=== PATIENT | female | born 1965 | race Caucasian/White ===

== ENCOUNTER 2016-10-14 01:01 | Inpatient (IN) | payer MEDICAID, OTHER ==
[2016-10-14 01:02] VITALS: BMI 25.0
[2016-10-14] MEDS ORDERED: Sodium Chloride 0.9% 1,000 ML IV ONE (01:19)
[2016-10-14] MEDS ORDERED: Nitroglycerin 2% Ointment Foilpak UD TOP STA (01:20)
--- NOTE | 2016-10-14 01:21 | C.PDOC ---
Time Seen by Provider: 10/14/16 01:11 Chief Complaint (Nursing): Chest Pain Past Medical History Vital Signs: Last Vital Signs Temp 97.6 F 10/14/16 04:24 Pulse 90 10/14/16 04:24 Resp 17 10/14/16 04:24 BP 139/83 10/14/16 04:24 Pulse Ox 100 10/14/16 04:47 - Medical History PMH: CAD, HTN, Hypercholesterolemia Denies: Pulmonary Embolism, Chronic Kidney Disease Surgical History: CABG (09/19) - [facility] Procedures ASSIST WITH CARDIAC OUTPUT USING BALLOON PUMP, INTERMITTENT (08/31/15) EXCISION OF DUODENUM, ENDO, DIAGN (06/07/16) EXCISION OF STOMACH, ENDO, DIAGN (06/07/16) FLUOROSCOPY OF LEFT HEART USING LOW OSMOLAR CONTRAST (08/31/15) FLUOROSCOPY OF MULT COR ART USING L OSM CONTRAST (08/31/15) MEASURE OF CARDIAC SAMPL & PRESSURE, L HEART, PERC APPROACH (08/31/15) TRANSFUSE NONAUT RED BLOOD CELLS IN PERIPH VEIN, PERC (03/13/15) TRANSFUSE NONAUT WHOLE BLOOD IN PERIPH VEIN, PERC (03/11/16) Family History: States: Unknown Family Hx, CAD (mother) - Social History Hx Tobacco Use: No Hx Alcohol Use: No Hx Substance Use: No - Immunization History Hx Tetanus Toxoid Vaccination: No Hx Influenza Vaccination: No Hx Pneumococcal Vaccination: No ED Course And Treatment - Laboratory Results Result Diagrams: 10/14/16 01:23 10/14/16 01:23 O2 Sat by Pulse Oximetry: 100 Disposition Discussed With DrMena: Tino Urena Jr. - Disposition Disposition: HOSPITALIZED Disposition Time: 04:00 Condition: STABLE - Clinical Impression Clinical Impression: Chest pain, Anemia
--- NOTE | 2016-10-14 01:21 | C.PDOC ---
History Of Present Illness 51 y/o female with PMHx DM, HTN, CAD with past CABG, here this evening complaining of intermittent chest pain radiating into her back over the last 5 days, worsening over the last few hours. Also complains of abdominal pain without vomiting or diarrhea. She is taking ASA every day. Patient was given Nitro x2, and a full dose of ASA en route. Time Seen by Provider: 10/14/16 01:11 Chief Complaint (Nursing): Chest Pain History Per: Patient History/Exam Limitations: no limitations Onset/Duration Of Symptoms: Days, Intermittent Episodes Current Symptoms Are (Timing): Worse Severity: Moderate Quality: "Pain" Associated Symptoms: denies: Nausea, Dyspnea, Diaphoresis, Syncope Modifying Factors: None Exacerbating Factors: None Alleviating Factors: None Nitro Therapy Administered: 2, Per EMS Recent travel outside of the [place]: No Additional History Per: Patient Past Medical History Vital Signs: Last Vital Signs Temp 97.6 F 10/14/16 04:24 Pulse 90 10/14/16 04:24 Resp 17 10/14/16 04:24 BP 139/83 10/14/16 04:24 Pulse Ox 100 10/14/16 04:27 - Medical History PMH: CAD, HTN, Hypercholesterolemia Denies: Pulmonary Embolism, Chronic Kidney Disease Surgical History: CABG (09/19) - [facility] Procedures ASSIST WITH CARDIAC OUTPUT USING BALLOON PUMP, INTERMITTENT (08/31/15) EXCISION OF DUODENUM, ENDO, DIAGN (06/07/16) EXCISION OF STOMACH, ENDO, DIAGN (06/07/16) FLUOROSCOPY OF LEFT HEART USING LOW OSMOLAR CONTRAST (08/31/15) FLUOROSCOPY OF MULT COR ART USING L OSM CONTRAST (08/31/15) MEASURE OF CARDIAC SAMPL & PRESSURE, L HEART, PERC APPROACH (08/31/15) TRANSFUSE NONAUT RED BLOOD CELLS IN PERIPH VEIN, PERC (03/13/15) TRANSFUSE NONAUT WHOLE BLOOD IN PERIPH VEIN, PERC (03/11/16) Family History: States: Unknown Family Hx, CAD (mother) - Social History Hx Tobacco Use: No Hx Alcohol Use: No Hx Substance Use: No - Immunization History Hx Tetanus Toxoid Vaccination: No Hx Influenza Vaccination: No Hx Pneumococcal Vaccination: No Review Of Systems Except As Marked, All Systems Reviewed And Found Negative. Cardiovascular: Positive for: Chest Pain Gastrointestinal: Positive for: Abdominal Pain Musculoskeletal: Positive for: Back Pain Physical Exam - Physical Exam Appears: Well, In Acute Distress Skin: Normal Color, Warm, Dry Eye(s): bilateral: Normal Inspection, PERRL, EOMI Nose: Normal Throat: Normal Neck: Normal Chest: Tenderness (anterior, TTP) Cardiovascular: Rhythm Regular Respiratory: Normal Breath Sounds Gastrointestinal/Abdominal: Bowel Sounds, Soft, Tenderness (epigastric), No Mass , No Distention, No Guarding, No Rebound, No Hernia Back: Normal Inspection Extremity: Normal ROM ED Course And Treatment - Laboratory Results Result Diagrams: 10/14/16 01:23 10/14/16 01:23 Lab Interpretation: Abnormal Interpretation Of Abnormal: low HgB,Hct. elevated glucose to 417mg % and elevated D_Dimer ECG: Interpreted By Me, Viewed By Me ECG Rhythm: Sinus Rhythm ECG Interpretation: No Acute Changes, Abnormal Interpretation Of ECG: Rate 103, Sinus tachycardia. ST abnormalities in inferior lateral leads. No ST elevation. Rate From EC O2 Sat by Pulse Oximetry: 100 (RA) Pulse Ox Interpretation: Normal - Radiology CXR: Interpreted by Me CXR Interpretation: Yes: Other (presence of central congestion- CHF) Progress Note: stool for occult blood- negative - Physician Consult Information Physician Contacted: Carlos Haddad Outcome Of Conversation: admit patint to medical service and he will see patient on consult. Medical Decision Making Medical Decision Making: Name: TERI BERUMEN Age: 51Years F Date: 10/14/2016 SSN: [id number] : 1965 Study: CTA CHEST Requesting Physician: Derek Belle Images: [id number] Addl Studies: Provided Clinical History: elevated D-dimer/ chest pain CONFIDENTIALITY STATEMENT This transmission is confidential and is intended to be a privileged communication. It is intended only for the use of the addressee. Access to this message by anyone else is unauthorized. If you are not the intended recipient, any disclosure, copying, distribution or any action taken, or omitted to be taken in reliance on it is prohibited and may be unlawful. If you received this communication in error, please notify us by telephone, so that return of this document to us can be arranged. Page 1 of 2 EXAM: CT Angiography Chest With Intravenous Contrast CLINICAL HISTORY: 51 years old, female; Pain; Chest pain; Prior surgery; Surgery type: Open heart ; Patient HX: [id number]; Additional info: Elevated d-dimer/ chest pain TECHNIQUE: Axial computed tomographic angiography images of the chest with intravenous contrast using pulmonary embolism protocol. This CT exam was performed using one or more of the following dose reduction techniques: automated exposure control, adjustment of the mA and/or kV according to patient size, and/or use of iterative reconstruction technique. MIP reconstructed images were created and reviewed. Coronal and sagittal reformatted images were created and reviewed. CONTRAST: 100 mL of [id number] administered intravenously. COMPARISON: CT - ANGIO CHEST PE PROTOCOL 08/31/2015 12:42:15 AM FINDINGS: Pulmonary arteries: No pulmonary embolism. Aorta: Minimal atherosclerotic disease of aorta. No aortic aneurysm. Inferior vena cava: Retrograde filling of IVC and hepatic veins. Lungs: Minimal atelectasis/scarring. No consolidation. Mild mosaic pattern of lung parenchyma. Interlobular septal thickening. Pleural space: Small bilateral pleural effusions, RIGHT greater than LEFT. No pneumothorax. Heart: Borderline cardiomegaly. No significant pericardial effusion. Mediastinum: 1.3 x 4.2 x 1.5 cm fluid collection without definite peripheral enhancement within anterior mediastinum, posterior/lateral to sternum. Bones/joints: Median sternotomy. No acute fracture. Soft tissues: Mild stranding within subcutaneous tissues. Lymph nodes: No pathologically enlarged lymph nodes. IMPRESSION: 1. No CT evidence of pulmonary embolism. 2. Probable mild interstitial edema. Clinical correlation is needed. 3. Small fluid collection posterior to sternum, likely seroma or resolving hematoma. Early abscess cannot entirely excluded. 4. Incidental/non-acute findings are described above. Thank you for allowing us to participate in the care of your patient. Dictated and Authenticated by: Deni Ramos MD 10/14/2016 3:49 AM Eastern Time ([place] & [place]) Disposition Discussed With : Tino Urena Jr. - Disposition Disposition: HOSPITALIZED Disposition Time: 04:26 Condition: STABLE - Clinical Impression Clinical Impression: Chest pain, Anemia - Scribe Statement The provider has reviewed the documentation as recorded by the Scribe Kadie Khan
[2016-10-14] MEDS ORDERED: Sodium Chloride 0.9% 1,000 ML ONE (01:24)
[2016-10-14] MEDS ORDERED: Nitroglycerin 2% Ointment Foilpak UD TOP ONE (01:24)
[2016-10-14 01:38] LABS: POTASSIUM 4.3 mmol/L (3.6-5.2)
[2016-10-14 01:40] LABS: ALB/GLOB RATIO 0.8 (1.0-2.1); BASO # 0.1 K/uL (0.0-0.2); BASO % 0.7 % (0.0-2.0); BILIRUBIN,TOTAL 0.4 mg/dL (0.2-1.3); EOS # 0.4 K/uL (0.0-0.7); EOS % 3.1 % (0.0-4.0); HEMATOCRIT 21.7 % (34.0-47.0); LYMPH # 2.6 K/uL (1.0-4.3); LYMPH % 20.5 % (20.0-40.0); MEAN CELL VOLUME 65.4 fL (81.0-99.0); MEAN CORPUSCULAR HEMOGLOBIN 20.3 pg (27.0-31.0); MEAN CORPUSCULAR HGB CONC 31.1 g/dL (33.0-37.0); MEAN PLATELET VOLUME 8.5 fL (7.2-11.7); MONO # 0.8 K/uL (0.0-0.8); MONO % 6.6 % (0.0-10.0); NRBC % 0.1 % (0.0-2.0); WHITE BLOOD COUNT 12.7 K/uL (4.8-10.8)
[2016-10-14 01:41] LABS: CALCIUM 7.3 mg/dl (8.6-10.4)
[2016-10-14] MEDS ORDERED: Heparin 25,000units in D5W 250 ML IV ONE (01:41)
[2016-10-14] MEDS ORDERED: (Novolin R) Insulin Human Regular 100 units/ml vial SC STA (01:44)
[2016-10-14 01:53] LABS: INR 0.9; TROPONIN I 0.028 ng/mL (0.00-0.120)
[2016-10-14] MEDS ORDERED: (Novolin R) Insulin Human Regular 100 units/ml vial ONE (01:58)
[2016-10-14] MEDS ORDERED: Iodixanol 320 MG/ML 100 ML BOTTLE IV ONE (02:30)
--- NOTE | 2016-10-14 03:49 | CT ---
EXAM: CT Angiography Chest With Intravenous Contrast CLINICAL HISTORY: 51 years old, female; Pain; Chest pain; Prior surgery; Surgery type: Open heart; Patient HX: 3; Additional info: Elevated d-dimer/ chest pain TECHNIQUE: Axial computed tomographic angiography images of the chest with intravenous contrast using pulmonary embolism protocol. This CT exam was performed using one or more of the following dose reduction techniques: automated exposure control, adjustment of the mA and/or kV according to patient size, and/or use of iterative reconstruction technique. MIP reconstructed images were created and reviewed. Coronal and sagittal reformatted images were created and reviewed. CONTRAST: 100 mL of [id number]- administered intravenously. COMPARISON: CT - ANGIO CHEST PE PROTOCOL 08/31/2015 12:42:15 AM FINDINGS: Pulmonary arteries: No pulmonary embolism. Aorta: Minimal atherosclerotic disease of aorta. No aortic aneurysm. Inferior vena cava: Retrograde filling of IVC and hepatic veins. Lungs: Minimal atelectasis/scarring. No consolidation. Mild mosaic pattern of lung parenchyma. Interlobular septal thickening. Pleural space: Small bilateral pleural effusions, RIGHT greater than LEFT. No pneumothorax. Heart: Borderline cardiomegaly. No significant pericardial effusion. Mediastinum: 1.3 x 4.2 x 1.5 cm fluid collection without definite peripheral enhancement within anterior mediastinum, posterior/lateral to sternum. Bones/joints: Median sternotomy. No acute fracture. Soft tissues: Mild stranding within subcutaneous tissues. Lymph nodes: No pathologically enlarged lymph nodes. IMPRESSION: 1. No CT evidence of pulmonary embolism. 2. Probable mild interstitial edema. Clinical correlation is needed. 3. Small fluid collection posterior to sternum, likely seroma or resolving hematoma. Early abscess cannot entirely excluded. 4. Incidental/non-acute findings are described above.
--- NOTE | 2016-10-14 04:52 | CP.PCM.HP ---
History of Present Illness - History of Present Illness History of Present Illness: CC: "chest pain and difficulty breathing" 50F PMH DM, HTN, menorrhagia and uterine fibroids presents to [facility] ED with complaint of chest pain. Patient stated that it began yesterday morning while she was at home. Patient was not doing anything in particular when it started. Patient reports a sudden onset. She states she has had similar pain, which she had come to this hospital for previously. Patient has long standing history of symptomatic anemia and cardiac issues. She rated the pain as 8/10 in severity. She described the pain as constant and sharp located substernally radiating to the back. Patient denies any exacerbating or alleviating factors. Patient reports associated SOB, especially when lying down or exerting herself. Patient can only walk short amount of distance before getting SOB. She sleeps with multiple pillows. Her last ECHO was in March 2016. Admits to cough, fatigue, and generalized weakness. Denies fever, chills, headache, vision change , dizziness, palpitations, nausea/vomiting, diarrhea, constipation, abdominal pain, dysuria, rash, weight change. PMH: DM, HTN, menorrhagia, uterine fibroids Meds: As per EMR Allergies: NKDA PSH: Left heart cath August 2015. Has large vertical midline chest scar. says she cannot recall was surgery she had. FH: Father had CABGx2, mother had heart surgeries as well. Social: Occasional glass of wine, Denies tobacco or illicit drug use Present on Admission - Present on Admission Any Indicators Present on Admission: No History of DVT/PE: No History of Uncontrolled Diabetes: No Urinary Catheter: No Decubitus Ulcer Present: No Review of Systems - Review of Systems All systems: reviewed and no additional remarkable complaints except (as per HPI ) Past Patient History - Infectious Disease Hx of Infectious Diseases: None - Past Medical History & Family History Past Medical History?: Yes - Past Social History Smoking Status: Never Smoked - CARDIAC Hx Hypercholesterolemia: Yes Hx Hypertension: Yes - PULMONARY Hx Pulmonary Embolism: No - NEUROLOGICAL Hx Neurological Disorder: No - HEENT Hx HEENT Problems: No - RENAL Hx Chronic Kidney Disease: No - ENDOCRINE/METABOLIC Hx Diabetes Mellitus Type 1: Yes - HEMATOLOGICAL/ONCOLOGICAL Hx Blood Disorders: No - INTEGUMENTARY Hx Dermatological Problems: No - MUSCULOSKELETAL/RHEUMATOLOGICAL Hx Falls: No - GASTROINTESTINAL Hx Gastrointestinal Disorders: No - GENITOURINARY/GYNECOLOGICAL Hx Genitourinary Disorders: No - PSYCHIATRIC Hx Substance Use: No - SURGICAL HISTORY Hx Coronary Artery Bypass Graft: Yes (09/19) - ANESTHESIA Hx Anesthesia: Yes Hx Anesthesia Reactions: No Hx Malignant Hyperthermia: No Meds Allergies/Adverse Reactions: Allergies Allergy/AdvReac Type Severity Reaction Status Date / Time No Known Allergies Allergy Unverified 10/14/16 01:05 Physical Exam - Constitutional Appears: No Acute Distress - Head Exam Head Exam: ATRAUMATIC, NORMOCEPHALIC - Eye Exam Eye Exam: EOMI, Normal appearance Pupil Exam: PERRL - ENT Exam ENT Exam: Mucous Membranes Moist - Neck Exam Neck exam: Positive for: Normal Inspection - Respiratory Exam Respiratory Exam: Clear to Auscultation Bilateral, NORMAL BREATHING PATTERN - Cardiovascular Exam Cardiovascular Exam: REGULAR RHYTHM, +S1, +S2 Additional comments: midline vertical scar in chest from CABG - GI/Abdominal Exam GI & Abdominal Exam: Normal Bowel Sounds, Soft. absent: Tenderness - Extremities Exam Extremities exam: Positive for: normal capillary refill, pedal pulses present. Negative for: calf tenderness - Back Exam Back exam: paraspinal tenderness. absent: CVA tenderness (L), CVA tenderness (R ) - Neurological Exam Neurological exam: Alert, CN II-XII Intact, Oriented x3 - Psychiatric Exam Psychiatric exam: Normal Affect, Normal Mood - Skin Skin Exam: Dry, Intact, Pallor Results - Vital Signs Recent Vital Signs: Last Vital Signs Temp 97.6 F 10/14/16 04:24 Pulse 88 10/14/16 04:49 Resp 21 10/14/16 04:49 BP 145/82 10/14/16 04:49 Pulse Ox 100 10/14/16 04:49 - Labs Result Diagrams: 10/14/16 01:23 10/14/16 01:23 Labs: Laboratory Results - last 24 hr 10/14/16 04:34 POC Glucose (mg/dL) 284 H Assessment & Plan - Assessment and Plan (Free Text) Plan: 1. Chest Pain Telemetry Cardio consult, Dr. Haddad, help appreciated JOSEPH x 3 EKG x 3 ECHO 03/11/16 ECHO normal with mild to moderate LVH and mild MR (please see full report in meditech) HOLD ASA 81mg PO daily Crestor 5 mg PO HS NS 100 cc/hr Morphine 2 mg IVP Q4H PRN f/u HA1C, TSH/T4, Lipid panel 3. DM Lantus 24U SC HS Lispro 5U SC AC Metformin 500 mg PO BID RISS Accuchecks f/u HA1C 4. Anemia Hgb 6.8 Transfuse 2 units PRBC Post transfusion CBC 4 hours after 2 unit finishes Feosol 325mg PO TID FOBT (-) 5. Prophylactic Measures Protonix 40mg PO daily SCDs PT/OT
[2016-10-14] MEDS: (Novolog) Insulin Aspart, Recombinant 100 u/ml 10 ml vial SC SCH ×3 (08:00→17:27)
[2016-10-14] MEDS: Metoprolol Succinate 25 mg XL Tab PO SCH ×2 (09:44→17:28)
[2016-10-14] MEDS ORDERED: Home Med 1 UNIT (Metformin 500 mg) PO SCH (10:00)
[2016-10-14] MEDS ORDERED: Pantoprazole 40 mg EC Tab PO SCH (10:00)
[2016-10-14] MEDS: Pantoprazole 40 mg EC Tab PO SCH (10:09)
--- NOTE | 2016-10-14 10:25 | RAD ---
HISTORY: chest pain COMPARISON: Chest x-ray performed 06/07/16 TECHNIQUE: Chest, one view. FINDINGS: Examination limited by habitus and hypoinflation LUNGS: Small cbrf-nschwsd-rnts-right pleural effusions and bibasilar atelectasis. Central vascular and mild pulmonary venous congestion. No definite pneumothorax. Please note that chest x-ray has limited sensitivity for the detection of pulmonary masses. CARDIOVASCULAR: Median sternotomy wires with evidence of CABG. Cardiomegaly. Atherosclerotic calcifications of the aorta. OSSEOUS STRUCTURES: Degenerative changes. VISUALIZED UPPER ABDOMEN: Unremarkable. OTHER FINDINGS: None. IMPRESSION: Small fiin-spxwtep-olrv-right pleural effusions and bibasilar atelectasis. Central vascular and mild pulmonary venous congestion.
[2016-10-14 14:42] LABS: IRON 97 ug/dL (37-170)
[2016-10-14 19:46] LABS: HEMATOCRIT 28.9 % (34.0-47.0); MEAN CELL VOLUME 71.5 fL (81.0-99.0); MEAN CORPUSCULAR HEMOGLOBIN 23.2 pg (27.0-31.0); MEAN CORPUSCULAR HGB CONC 32.4 g/dL (33.0-37.0); MEAN PLATELET VOLUME 8.1 fL (7.2-11.7); WHITE BLOOD COUNT 10.9 K/uL (4.8-10.8)
--- NOTE | 2016-10-14 21:30 | CP.PCM.PN ---
<Lesley Mathias - Last Filed: 10/14/16 21:52> Subjective - Date & Time of Evaluation Date of Evaluation: 10/14/16 Time of Evaluation: 07:00 - Subjective Subjective: PGY1 Medicine note for Dr. Urena Patient seen and examined at bedside. Patient continues to report feel weak and having pain in the middle of her chest, her ribs, and back. She continues to complain of some orthopnea, cough, fatigue, and generalized weakness. Denies fever, chills, headache, vision change, dizziness, palpitations, nausea/vomiting , diarrhea, constipation, abdominal pain, and dysuria. Objective - Vital Signs/Intake and Output Vital Signs (last 24 hours): Temp Pulse Resp BP Pulse Ox 99.1 F 99 H 20 119/79 97 10/14/16 15:47 10/14/16 15:47 10/14/16 15:47 10/14/16 15:47 10/14/16 15:47 Intake and Output: 10/14/16 10/15/16 18:59 06:59 Intake Total 625 Balance 625 - Medications Medications: Current Medications Acetaminophen (Tylenol 325mg Tab) 650 mg PO Q6 PRN PRN Reason: Fever >100.4 F Docusate Sodium (Colace) 100 mg PO TID [facility] Last Admin: 10/14/16 17:28 Dose: 100 mg Ferrous Sulfate (Feosol) 325 mg PO TID [facility] Last Admin: 10/14/16 17:28 Dose: 325 mg Furosemide (Lasix) 20 mg IVP DAILY [facility] Gabapentin (Neurontin) 100 mg PO TID [facility] Last Admin: 10/14/16 17:28 Dose: 100 mg Insulin Aspart (Novolog) 5 unit SC AC [facility] Last Admin: 10/14/16 17:27 Dose: 5 unit Insulin Glargine (Lantus) 24 unit SC HS [facility] Last Admin: 10/14/16 21:24 Dose: 24 units Metformin HCl (Glucophage) 500 mg PO BID [facility] Last Admin: 10/14/16 09:44 Dose: 500 mg Metoprolol Succinate (Toprol Xl) 25 mg PO BID [facility] Last Admin: 10/14/16 17:28 Dose: 25 mg Morphine Sulfate (Morphine) 2 mg IVP Q4H PRN PRN Reason: Pain, moderate (4-7) Ondansetron HCl (Zofran Inj) 4 mg IVP Q6 PRN PRN Reason: Nausea/Vomiting Pantoprazole Sodium (Protonix Ec Tab) 40 mg PO DAILY [facility] Last Admin: 10/14/16 10:09 Dose: 40 mg Rosuvastatin Calcium (Crestor) 5 mg PO HS [facility] Last Admin: 10/14/16 21:24 Dose: 5 mg - Labs Labs: 10/14/16 19:41 PT 10.0 SECONDS (9.7-12.2) 10/14/16 01:23 INR 0.9 10/14/16 01:23 - Constitutional Appears: No Acute Distress, Unkempt - Head Exam Head Exam: NORMAL INSPECTION - Eye Exam Eye Exam: Normal appearance. absent: Conjunctival injection, Scleral icterus - ENT Exam ENT Exam: Mucous Membranes Moist - Neck Exam Neck Exam: Normal Inspection - Respiratory Exam Respiratory Exam: Clear to Ausculation Bilateral, NORMAL BREATHING PATTERN. absent: Accessory Muscle Use, Rales, Rhonchi, Wheezes - Cardiovascular Exam Cardiovascular Exam: REGULAR RHYTHM, RRR, +S1, +S2 Additional comments: midline vertical scar in chest from CABG - GI/Abdominal Exam GI & Abdominal Exam: Soft, Normal Bowel Sounds. absent: Tenderness - Extremities Exam Extremities Exam: Normal Capillary Refill, Normal Inspection, Pedal Edema (trace ), Tenderness (to palpation when assessing for pitting edema) - Back Exam Back Exam: paraspinal tenderness - Neurological Exam Neurological Exam: Alert, Awake, Oriented x3 - Psychiatric Exam Psychiatric exam: Normal Affect, Normal Mood - Skin Skin Exam: Dry, Intact, Pallor Assessment and Plan - Assessment and Plan (Free Text) Assessment: 50F PMH DM, HTN, menorrhagia and uterine fibroids presents with chest pain. Plan: 1. Chest Pain -CT chest with contrast: No CT evidence of pulmonary embolism; Probable mild interstitial edema. Clinical correlation is needed; Small fluid collection posterior to sternum, likely seroma or resolving hematoma. Early abscess cannot entirely excluded; Incidental/non-acute findings (see full report) JOSEPH negative x [address] changes x 3 -f/u ECHO -03/11/16 ECHO normal with mild to moderate LVH and mild MR (please see full report in meditech) -HOLD ASA 81mg PO daily -Crestor 5 mg PO HS -NS 100 cc/hr -Morphine 2 mg IVP Q4H PRN -Lasix 20mg IVP daily -f/u HA1C, TSH/T4, Lipid panel -Patient for procedure with Dr. Haddad in the AM -Cardio consult, Dr. Haddad 2. HTN -Toprol xl 25mg po bid -Crestor 5mg po hs 3. DM -Lantus 24U SC HS -Lispro 5U SC AC -Metformin 500 mg PO BID on hold -Neurontin 100mg po tid -RISS -Accuchecks -f/u HgbA1C 4. Anemia -Hgb 6.8 -Transfuse 2 units PRBC -Post transfusion CBC 4 hours after 2 unit finishes -Feosol 325mg PO TID -FOBT (-) 5. Prophylactic Measures -Protonix 40mg PO daily -SCDs -PT/OT -Colace 100mg po tid -zofran 4mg ivp q6 prn Will discuss plan with Dr. Romel Mathias PGY1 <Tino Urena Jr. - Last Filed: 10/18/16 10:05> Objective - Vital Signs/Intake and Output Vital Signs (last 24 hours): Temp Pulse Resp BP Pulse Ox 98.1 F 87 21 155/84 H 98 10/15/16 15:59 10/15/16 15:59 10/15/16 15:59 10/15/16 15:59 10/15/16 15:59 - Labs Labs: 10/15/16 07:05 10/15/16 07:05 PT 10.9 SECONDS (9.7-12.2) 10/15/16 07:29 INR 1.0 10/15/16 07:29 APTT 28 SECONDS (21-34) 10/15/16 07:29 Attending/Attestation - Attestation I have personally seen and examined this patient.: Yes I have fully participated in the care of the patient.: Yes I have reviewed all pertinent clinical information, including history, physical exam and plan: Yes Notes (Text): 10/18/16 10:05 Resident note and findings reviewed
[2016-10-14] MEDS ORDERED: (Lantus) Insulin Glargine, Recombinant SC SCH (22:00)
[2016-10-15 07:30] LABS: BASO # 0.1 K/uL (0.0-0.2); BASO % 0.9 % (0.0-2.0); EOS # 0.4 K/uL (0.0-0.7); EOS % 5.1 % (0.0-4.0); LYMPH # 1.7 K/uL (1.0-4.3); LYMPH % 20.1 % (20.0-40.0); MEAN CELL VOLUME 70.6 fL (81.0-99.0); MEAN CORPUSCULAR HEMOGLOBIN 23.5 pg (27.0-31.0); MEAN CORPUSCULAR HGB CONC 33.2 g/dL (33.0-37.0); MEAN PLATELET VOLUME 8.4 fL (7.2-11.7); MONO # 0.8 K/uL (0.0-0.8); MONO % 9.2 % (0.0-10.0); RED CELL DISTRIBUTION WIDTH 20.6 % (11.5-14.5); WHITE BLOOD COUNT 8.6 K/uL (4.8-10.8)
[2016-10-15 07:35] LABS: CHLORIDE 104 mmol/L (98-107); POTASSIUM 4.1 mmol/L (3.6-5.2); SODIUM 131 mmol/L (132-148)
[2016-10-15 07:37] LABS: ALB/GLOB RATIO 0.6 (1.0-2.1); AST/SGOT 16 U/L (14-36); BILIRUBIN,TOTAL < 0.1 mg/dL (0.2-1.3); CARBON DIOXIDE 23 mmol/L (22-30); GFR AFRICAN-AMERICAN 53; TOTAL PROTEIN 5.8 g/dL (6.3-8.3)
[2016-10-15 07:38] LABS: ALKALINE PHOSPHATASE 71 U/L (38-126); ALT/SGPT 23 U/L (9-52); BLOOD UREA NITROGEN 19 mg/dL (7-17); CALCIUM 7.5 mg/dl (8.6-10.4); GLUCOSE,RANDOM 220 mg/dL (65-105); MAGNESIUM 1.6 mg/dL (1.6-2.3); PHOSPHOROUS 3.5 mg/dL (2.5-4.5)
[2016-10-15 07:54] LABS: T4 6.86 ug/dL (5.5-11.0)
[2016-10-15] MEDS: (Novolog) Insulin Aspart, Recombinant 100 u/ml 10 ml vial SC SCH ×3 (08:01→17:50)
[2016-10-15 08:41] LABS: FOLATE 9.1 ng/mL
[2016-10-15 08:42] LABS: THYROID STIMULATING HORMONE 0.86 mIU/L (0.46-4.68)
[2016-10-15] MEDS: Metoprolol Succinate 25 mg XL Tab PO SCH ×2 (10:06→17:50)
[2016-10-15] MEDS: Pantoprazole 40 mg EC Tab PO SCH (10:06)
--- NOTE | 2016-10-15 10:56 | CP.PCM.PN ---
Subjective - Date & Time of Evaluation Date of Evaluation: 10/15/16 Time of Evaluation: 10:52 - Subjective Subjective: Medicine Progress Note Patient seen and examined. Objective - Vital Signs/Intake and Output Vital Signs (last 24 hours): Temp Pulse Resp BP Pulse Ox 98.6 F 77 20 157/85 H 96 10/15/16 07:07 10/15/16 07:07 10/15/16 07:07 10/15/16 10:02 10/15/16 07:07 Intake and Output: 10/15/16 10/15/16 06:59 18:59 Intake Total 400 Balance 400 - Medications Medications: Current Medications Acetaminophen (Tylenol 325mg Tab) 650 mg PO Q6 PRN PRN Reason: Fever >100.4 F Docusate Sodium (Colace) 100 mg PO TID [facility] Last Admin: 10/15/16 10:06 Dose: Not Given Ferrous Sulfate (Feosol) 325 mg PO TID [facility] Last Admin: 10/15/16 10:06 Dose: Not Given Furosemide (Lasix) 20 mg IVP DAILY [facility] Last Admin: 10/15/16 10:02 Dose: 20 mg Gabapentin (Neurontin) 100 mg PO TID [facility] Last Admin: 10/15/16 10:06 Dose: Not Given Heparin Sodium (Porcine) (Heparin) 5,000 units SC Q12 [facility] Insulin Aspart (Novolog) 5 unit SC AC [facility] Last Admin: 10/15/16 08:01 Dose: Not Given Insulin Glargine (Lantus) 24 unit SC [facility] Last Admin: 10/14/16 21:24 Dose: 24 units Metformin HCl (Glucophage) 500 mg PO BID [facility] Last Admin: 10/14/16 09:44 Dose: 500 mg Metoprolol Succinate (Toprol Xl) 25 mg PO BID [facility] Last Admin: 10/15/16 10:06 Dose: Not Given Morphine Sulfate (Morphine) 2 mg IVP Q4H PRN PRN Reason: Pain, moderate (4-7) Ondansetron HCl (Zofran Inj) 4 mg IVP Q6 PRN PRN Reason: Nausea/Vomiting Pantoprazole Sodium (Protonix Ec Tab) 40 mg PO DAILY [facility] Last Admin: 10/15/16 10:06 Dose: Not Given Rosuvastatin Calcium (Crestor) 5 mg PO [facility] Last Admin: 10/14/16 21:24 Dose: 5 mg - Labs Labs: 10/15/16 07:05 10/15/16 07:05 PT 10.9 SECONDS (9.7-12.2) 10/15/16 07:29 INR 1.0 10/15/16 07:29 APTT 28 SECONDS (21-34) 10/15/16 07:29 Assessment and Plan - Assessment and Plan (Free Text) Assessment: 1. Chest Pain -CT chest with contrast: No CT evidence of pulmonary embolism; Probable mild interstitial edema. Clinical correlation is needed; Small fluid collection posterior to sternum, likely seroma or resolving hematoma. Early abscess cannot entirely excluded; Incidental/non-acute findings (see full report) JOSEPH negative x [address] changes x 3 -f/u ECHO -03/11/16 ECHO normal with mild to moderate LVH and mild MR (please see full report in [employer]) -HOLD ASA 81mg PO daily -Crestor 5 mg PO HS -NS 100 cc/hr -Morphine 2 mg IVP Q4H PRN -Lasix 20mg IVP daily -Patient for procedure with Dr. Haddad in the AM -Cardio consult, Dr. Haddad 2. HTN -Toprol xl 25mg po bid -Crestor 5mg po hs 3. DM -Lantus 24U SC HS -Lispro 5U SC AC -Metformin 500 mg PO BID on hold -Neurontin 100mg po tid -RISS -Accuchecks -HgbA1C 10.1 4. Anemia - Likely secondary to menorrhagia/uterine fibroids - Hgb 10 - s/p transfusion of 2 units PRBC on 10/14 - Feosol 325mg PO TID - FOBT (-) 5. HLD -Cholesterol 299, TG 211, HDL 47, LDL 190 -Crestor 20mg PO HS 6. Prophylactic Measures -Protonix 40mg PO daily -SCDs -PT/OT -Colace 100mg po tid -zofran 4mg ivp q6 prn Will discuss plan with Dr. Urena
[2016-10-15 16:00] VITALS: BP 155/84; PULSE 87; RESP 21; TEMP 98.1; O2SAT 98
--- NOTE | 2016-10-15 16:33 | CP.PCM.DIS ---
Provider - Provider Date of Admission: 10/14/16 04:01 Attending physician: Abraham Lopez MD Primary care physician: Carlos Haddad MD Time Spent in preparation of Discharge (in minutes): 90 Hospital Course - Lab Results Lab Results: Most Recent Lab Values WBC 8.6 K/uL (4.8-10.8) 10/15/16 07:05 RBC 4.25 Mil/uL (3.80-5.20) 10/15/16 07:05 Hgb 10.0 g/dL (11.0-16.0) L 10/15/16 07:05 Hct 30.0 % (34.0-47.0) L 10/15/16 07:05 MCV 70.6 fL (81.0-99.0) L 10/15/16 07:05 MCH 23.5 pg (27.0-31.0) L 10/15/16 07:05 MCHC 33.2 g/dL (33.0-37.0) 10/15/16 07:05 RDW 20.6 % (11.5-14.5) H 10/15/16 07:05 Plt Count 285 K/uL (130-400) 10/15/16 07:05 MPV 8.4 fL (7.2-11.7) 10/15/16 07:05 Neut % (Auto) 64.7 % (50.0-75.0) 10/15/16 07:05 Lymph % (Auto) 20.1 % (20.0-40.0) 10/15/16 07:05 Caroline % (Auto) 9.2 % (0.0-10.0) 10/15/16 07:05 Eos % (Auto) 5.1 % (0.0-4.0) H 10/15/16 07:05 Baso % (Auto) 0.9 % (0.0-2.0) 10/15/16 07:05 Neut # 5.6 K/uL (1.8-7.0) 10/15/16 07:05 Lymph # 1.7 K/uL (1.0-4.3) 10/15/16 07:05 Caroline # 0.8 K/uL (0.0-0.8) 10/15/16 07:05 Eos # 0.4 K/uL (0.0-0.7) 10/15/16 07:05 Baso # 0.1 K/uL (0.0-0.2) 10/15/16 07:05 PT 10.9 SECONDS (9.7-12.2) 10/15/16 07:29 INR 1.0 10/15/16 07:29 APTT 28 SECONDS (21-34) 10/15/16 07:29 D-Dimer, Quantitative 307 ng/mlDDU (0-243) H 10/14/16 01:23 Sodium 131 mmol/L (132-148) L 10/15/16 07:05 Potassium 4.1 mmol/L (3.6-5.2) 10/15/16 07:05 Chloride 104 mmol/L (98-107) 10/15/16 07:05 Carbon Dioxide 23 mmol/L (22-30) 10/15/16 07:05 Anion Gap 8 (10-20) L 10/15/16 07:05 BUN 19 mg/dL (7-17) H 10/15/16 07:05 Creatinine 1.3 MG/DL (0.7-1.2) H 10/15/16 07:05 Est GFR ( Amer) 53 10/15/16 07:05 Est GFR (Non-Af Amer) 44 10/15/16 07:05 POC Glucose (mg/dL) 264 mg/dL (65-110) H 10/15/16 06:34 Random Glucose 220 mg/dL (65-105) H 10/15/16 07:05 Hemoglobin A1c 10.1 % (4.2-6.5) H 10/14/16 07:05 Calcium 7.5 mg/dl (8.6-10.4) L 10/15/16 07:05 Phosphorus 3.5 mg/dL (2.5-4.5) 10/15/16 07:05 Magnesium 1.6 mg/dL (1.6-2.3) 10/15/16 07:05 Iron 97 ug/dL (37-170) 10/14/16 14:13 TIBC 179 ug/dL (250-450) L 10/14/16 14:13 % Saturation 15 (20-55) L 10/15/16 07:05 Transferrin 154.68 mg/dL (206-381) L 10/15/16 07:05 Ferritin 65.4 ng/mL 10/15/16 07:05 Total Bilirubin < 0.1 mg/dL (0.2-1.3) L 10/15/16 07:05 AST 16 U/L (14-36) 10/15/16 07:05 ALT 23 U/L (9-52) 10/15/16 07:05 Alkaline Phosphatase 71 U/L (38-126) 10/15/16 07:05 Total Creatine Kinase 133 U/L (30-135) 10/14/16 09:55 CK-MB (Mass) 1.80 ng/mL (0.0-3.38) 10/14/16 09:55 Troponin I 0.0530 ng/mL (0.00-0.120) 10/14/16 19:41 Troponin I, Quant 0.0480 ng/mL (0.00-0.120) 10/14/16 09:55 NT-Pro-B Natriuret Pep 4920 pg/mL (0-450) H 10/14/16 01:23 Total Protein 5.8 g/dL (6.3-8.3) L 10/15/16 07:05 Albumin 2.2 g/dL (3.5-5.0) L 10/15/16 07:05 Globulin 3.6 gm/dL (2.2-3.9) 10/15/16 07:05 Albumin/Globulin Ratio 0.6 (1.0-2.1) L 10/15/16 07:05 Triglycerides 211 mg/dL (0-149) H D 10/15/16 04:00 Cholesterol 299 mg/dL (0-199) H 10/15/16 04:00 LDL Cholesterol Direct 190 mg/dL (0-129) H 10/15/16 04:00 HDL Cholesterol 47 mg/dL (30-70) 10/15/16 04:00 Lipase 239 U/L (23-300) 10/14/16 01:23 Vitamin B12 403 pg/mL (239-931) 10/15/16 07:05 Folate 9.1 ng/mL 10/15/16 07:05 Thyroxine (T4) 6.86 ug/dL (5.5-11.0) 10/15/16 04:00 TSH 3rd Generation 0.86 mIU/L (0.46-4.68) 10/15/16 04:00 Urine HCG, Qual Negative (NEGATIVE) 10/15/16 12:10 Stool Occult Blood Negative (NEGATIVE) 10/14/16 02:18 Serum Ketones Negative (NEGATIVE) 10/14/16 01:53 Blood Type B POSITIVE 10/14/16 02:36 Antibody Screen Negative 10/14/16 02:36 - Hospital Course Hospital Course: 50F PMH DM, HTN, menorrhagia and uterine fibroids presents to [facility] ED with complaint of chest pain. Patient stated that it began yesterday morning while she was at home. Patient was not doing anything in particular when it started. Patient reports a sudden onset. She states she has had similar pain, which she had come to this hospital for previously. Patient has long standing history of symptomatic anemia and cardiac issues. She rated the pain as 8/10 in severity. She described the pain as constant and sharp located substernally radiating to the back. Patient denies any exacerbating or alleviating factors. Patient reports associated SOB, especially when lying down or exerting herself. Patient can only walk short amount of distance before getting SOB. She sleeps with multiple pillows. Her last ECHO was in March 2016. Admits to cough, fatigue, and generalized weakness. Denies fever, chills, headache, vision change , dizziness, palpitations, nausea/vomiting, diarrhea, constipation, abdominal pain, dysuria, rash, weight change. CT chest with contrast was performed. Will hold Metformin. Findings: 1. No CT evidence of pulmonary embolism. 2. Probable mild interstitial edema. Clinical correlation is needed. 3. Small fluid collection posterior to sternum, likely seroma or resolving hematoma. Early abscess cannot entirely excluded. 4. Incidental/non-acute findings (see full report) The patient was admitted for anemia after she had Hgb of 6.8 in the ED. Anemia was likely due to menorrhagia. Aitent admits that her periods last over 7 days and have very heavy flow. She has never seen an poly operator for this issue before. Patient was transfused 2u pRBCs and her Hgb increased to 10. Iron studies were done and the patient was started on oral iron. Stool OB was negative for GI bleed. Chest pain was worked out and ACS was ruled out. Malt [employer] Dr Haddad was consulted who determined that chest pain was likely secondary to anemia and non-cardiac. The patients chest pain resolved after infusion. It was noted that patient had tenderness of her chest with palpation and component of costocondritis. ROMIs were negative x3 and patient had ECHO done which she should follow up results as outpatient. Patient was cleared from cardiac standpoint. Patient was discharged home on 10/15/16. 1. Chest Pain Resolved, Patient cleared for DC per Dr Haddad. Chest pain due to noncardiac causes. -CT chest with contrast: No CT evidence of pulmonary embolism; Probable mild interstitial edema. Clinical correlation is needed; Small fluid collection posterior to sternum, likely seroma or resolving hematoma. Early abscess cannot entirely excluded; Incidental/non-acute findings (see full report) JOSEPH negative x [address] changes x 3 -f/u ECHO results as outpatient -03/11/16 ECHO normal with mild to moderate LVH and mild MR (please see full report in [employer]) -HOLD ASA 81mg PO daily -Crestor 5 mg PO HS -NS 100 cc/hr -Morphine 2 mg IVP Q4H PRN -Lasix 20mg IVP daily -Cardio consult, Dr. Haddad 2. HTN -Toprol xl 25mg po bid -Crestor 5mg po hs 3. DM -Lantus 24U SC HS -Lispro 5U SC AC -Metformin 500 mg PO BID on hold -Neurontin 100mg po tid -RISS -Accuchecks 4. Anemia -Hgb 6.8--> 10 s/p transfusion -Transfuse 2 units PRBC -Post transfusion CBC 4 hours after 2 unit finishes -Feosol 325mg PO TID -FOBT (-) Secondary to menorrhagia 5. Prophylactic Measures -Protonix 40mg PO daily -SCDs -PT/OT -Colace 100mg po tid -zofran 4mg ivp q6 prn Discharge Exam - Head Exam Head Exam: NORMAL INSPECTION - Eye Exam Eye Exam: EOMI, Normal appearance Pupil Exam: NORMAL ACCOMODATION - ENT Exam ENT Exam: Mucous Membranes Moist - Respiratory Exam Respiratory Exam: Clear to PA & Lateral, NORMAL BREATHING PATTERN, UNREMARKABLE. absent: Rales, Rhonchi, Wheezes, Respiratory Distress Additional comments: chest wall- pain reproducible with palpation - Cardiovascular Exam Cardiovascular Exam: REGULAR RHYTHM, +S1, +S2 - GI/Abdominal Exam GI & Abdominal Exam: Normal Bowel Sounds, Soft, Unremarkable - Extremities Exam Extremities exam: normal inspection - Back Exam Back exam: NORMAL INSPECTION - Neurological Exam Neurological exam: Alert, CN II-XII Intact, Normal Gait, Oriented x3 - Psychiatric Exam Psychiatric exam: Normal Affect, Normal Mood - Skin Skin Exam: Dry, Intact, Normal Color, Warm Discharge Plan - Discharge Medications Prescriptions: Ferrous Sulfate [Feosol] 325 mg PO TID #90 tab - Follow Up Plan Condition: STABLE Disposition: HOME/ ROUTINE Additional Instructions: Patient is to be discharged home today per Dr Urena. Patient should follow up with her PMD Dr Haddad within 7 days. Patient should look into her insurance plan and make an appointment with an poly operator for further evaluation of her menorrhagia. She should continue all of her home meds. If patient experiences recurrence of her symptoms or has any other concerns she should return to the ED. Instructions were explained to the patient who understands. Referrals: Carlos Haddad MD [Primary Care Provider] -
--- NOTE | 2016-10-18 11:45 | CARD ---
APPROVED REPORT EKG Measurement Heart [id number] <Conclusion> Sinus tachycardia ST & T wave abnormality, consider anterolateral ischemia Abnormal ECG
--- NOTE | 2016-10-18 11:46 | CARD ---
APPROVED REPORT EKG Measurement Heart [id number] <Conclusion> Sinus tachycardia Possible Left atrial enlargement ST & T wave abnormality, consider lateral ischemia Abnormal ECG
--- NOTE | 2016-10-18 11:54 | CARD ---
APPROVED REPORT EXAM: Two-dimensional and M-mode echocardiogram with Doppler and color Doppler. Other Information Quality : GoodRhythm : INDICATION Dyspnea Chest Pain Surgery/Intervention CABG: RISK FACTORS Hypertension Hyperlipidemia Diabetes M-Mode DIMENSIONS RVDd2.72 (2.1-3.2cm)Left Atrium (MM)4.56 (2.5-4.0cm) IVSd1.35 (0.7-1.1cm)Aortic Root2.82 (2.2-3.7cm) LVDd3.99 (4.0-5.6cm)Aortic Cusp Exc.1.61 (1.5-2.0cm) PWd1.09 (0.7-1.1cm)FS (%) 43 % LVDs2.28 (2.0-3.8cm)LVEF (%)75 (>50%) Mitral Valve MV E Mtsiggus949.3cm/sMV A Bpursjed51.1cm/sE/A ratio3.0 TDI E/Lateral E'0.0E/Medial E'0.0 Tricuspid Valve TR Peak Hvwadkmn864yo/sTR Peak Gr.[id number] LEFT VENTRICLE The left ventricle is normal size. There is mild concentric left ventricular hypertrophy. The left ventricular function is normal. The left ventricular ejection fraction is within the normal range. No regional wall motion abnormalities noted. Tissue Doppler imaging reveals moderate left ventricular diastolic dysfunction. No left ventricle thrombus noted on this study. There is no ventricular septal defect visualized. There is no left ventricular aneurysm. There is no mass noted in the left ventricle. RIGHT VENTRICLE The right ventricle is normal size. There is normal right ventricular wall thickness. The right ventricular systolic function is normal. ATRIA The left atrium is moderately dilated. The right atrium is borderline dilated. The interatrial septum is intact with no evidence for an atrial septal defect. AORTIC VALVE The aortic valve is calcified but opens well. No aortic regurgitation is present. There is no aortic valvular stenosis. MITRAL VALVE Mitral annular calcification is mild. There is no evidence of mitral valve prolapse. There is no mitral valve stenosis. Mitral regurgitation is mild to moderate. TRICUSPID VALVE The tricuspid valve is normal in structure. There is mild tricuspid regurgitation. There is no tricuspid valve prolapse or vegetation. There is no tricuspid valve stenosis. PULMONIC VALVE The pulmonary valve is normal in structure. There is mild to moderate pulmonic valvular regurgitation. There is no pulmonic valvular stenosis. GREAT VESSELS The aortic root is normal in size. The ascending aorta is normal in size. The pulmonary artery is normal. The IVC is normal in size and collapses >50% with inspiration. PERICARDIAL EFFUSION There is no pericardial effusion. <Conclusion> There is mild concentric left ventricular hypertrophy. Tissue Doppler imaging reveals moderate left ventricular diastolic dysfunction. The left atrium is moderately dilated. The right atrium is borderline dilated. The aortic valve is calcified but opens well. Mitral annular calcification is mild. Mitral regurgitation is mild to moderate. There is mild tricuspid regurgitation. There is mild to moderate pulmonic valvular regurgitation. PAP IS 40
== END 2016-10-15 18:36 | disposition home or self-care (01) | DRG 143 ==
LOC: SUPCPDRO 01:01 → C.ER 01:01 → C.6T 04:01 → C.9E 04:29 → C.6T 04:46
PROVIDERS: ADMIT Family Medicine; ATTEND Family Medicine
DX: R07.9 Chest pain, unspecified (principal); I25.10 Atherosclerotic heart disease of native coronary artery without angina pectoris; I10 Essential (primary) hypertension; E11.9 Type 2 diabetes mellitus without complications; D64.9 Anemia, unspecified; N92.0 Excessive and frequent menstruation with regular cycle; E78.00 Pure hypercholesterolemia, unspecified; Z79.84 Long term (current) use of oral hypoglycemic drugs; Z95.1 Presence of aortocoronary bypass graft

== ENCOUNTER 2017-05-20 09:42 | Emergency (ER) | payer MEDICAID ==
[2017-05-20 09:43] VITALS: BMI 25.0
[2017-05-20] MEDS ORDERED: Iohexol 240 (50 ml) PO ONE (10:12)
[2017-05-20] MEDS ORDERED: Lactated Ringer's 1,000 ML IV STA (10:12)
[2017-05-20 11:03] LABS: BASO % 0.3 % (0.0-2.0); EOS # 0.2 K/uL (0.0-0.7); EOS % 2.7 % (0.0-4.0); LYMPH # 1.9 K/uL (1.0-4.3); LYMPH % 22.7 % (20.0-40.0); MEAN CELL VOLUME 71.5 fL (81.0-99.0); MEAN CORPUSCULAR HEMOGLOBIN 22.9 pg (27.0-31.0); MEAN CORPUSCULAR HGB CONC 32.1 g/dL (33.0-37.0); MEAN PLATELET VOLUME 8.6 fL (7.2-11.7); MONO # 0.5 K/uL (0.0-0.8); MONO % 6.5 % (0.0-10.0); NRBC % 0.2 % (0.0-2.0); RED CELL DISTRIBUTION WIDTH 17.9 % (11.5-14.5); WHITE BLOOD COUNT 8.3 K/uL (4.8-10.8)
[2017-05-20] MEDS ORDERED: Iohexol 240 (50 ml) ONE (11:18)
[2017-05-20 11:31] LABS: ALB/GLOB RATIO 0.7 (1.0-2.1); BILIRUBIN,TOTAL 0.4 mg/dL (0.2-1.3); CALCIUM 8.1 mg/dl (8.6-10.4); POTASSIUM 4.8 mmol/L (3.6-5.2); TOTAL PROTEIN 7.2 g/dL (6.3-8.3)
[2017-05-20] MEDS ORDERED: (Novolin R) Insulin Human Regular 100 units/ml vial IV STA (11:31)
[2017-05-20] MEDS ORDERED: (Novolin R) Insulin Human Regular 100 units/ml vial ONE (12:04)
[2017-05-20 12:11] LABS: RBC URINE 3 /hpf (0-3); URINE BACTERIA RARE (<OCC); URINE BILIRUBIN NEGATIVE (NEGATIVE); URINE BLOOD NEGATIVE (NEGATIVE); URINE COLOR Straw (YELLOW); URINE GLUCOSE (UA) 3+ mg/dL (Normal); URINE KETONE NEGATIVE (NEGATIVE); URINE LEUKOCYTE ESTERASE NEG Leu/uL (Negative); URINE PROTEIN 2+ mg/dL (NEGATIVE); URINE UROBILINOGEN NORMAL mg/dL (0.2-1.0); WBC URINE 1 /hpf (0-5)
[2017-05-20] MEDS ORDERED: Iodixanol 320 MG/ML 100 ML BOTTLE IV ONE (13:37)
--- NOTE | 2017-05-20 14:34 | CT ---
PROCEDURE: CT Abdomen and Pelvis with contrast HISTORY: right-sided abd pain COMPARISON: Comparison is made to the previous study dated 01/07/2016 TECHNIQUE: Contrast dose: 80 mL Visipaque 320. Axial and reformatted coronal and sagittal CT images of the abdomen and pelvis were obtained after IV and oral contrast administration. Radiation dose: Total exam DLP = 685.00 mGy-cm. This CT exam was performed using one or more of the following dose reduction techniques: Automated exposure control, adjustment of the mA and/or kV according to patient size, and/or use of iterative reconstruction technique. FINDINGS: LOWER THORAX: Unremarkable. LIVER: Mild hepatomegaly is again noted. There is sub centimeters low-attenuation lesion at the liver dome that is too small to be further characterized in this study. Otherwise the liver demonstrate homogeneous enhancement. No evidence of perihepatic or subcapsular fluid collection. GALLBLADDER AND BILE DUCTS: Unremarkable. PANCREAS: Unremarkable. No gross lesion or ductal dilatation. SPLEEN: The spleen is normal in size. There is with defined low-attenuation lesion at the peripheral aspect of the spleen measures 1.1 x 1.2 centimeter may represent splenic cyst or hemangioma. ADRENALS: Unremarkable. No mass. KIDNEYS AND URETERS: Foci of calcification are again noted in the kidneys likely vascular. No evidence of obstructing stone. . No hydronephrosis. No solid mass. VASCULATURE: Unremarkable. No aortic aneurysm. Diffuse atherosclerotic calcification is noted. BOWEL: Unremarkable. No obstruction. No gross mural thickening. APPENDIX: Normal appendix. PERITONEUM: Unremarkable. No free fluid. No free air. LYMPH NODES: Unremarkable. No enlarged lymph nodes. BLADDER: Unremarkable. REPRODUCTIVE: The uterus and adnexa are not visualized. BONES: No acute fracture. OTHER FINDINGS: Bilateral fat containing inguinal hernias are seen. IMPRESSION: No evidence of acute pathology in the abdomen and pelvis. No evidence of cholecystitis pancreatitis or appendicitis. Re- demonstration of punctate calcification in both kidneys likely represent vascular calcification. No evidence of hydronephrosis. Sub centimeter low-attenuation lesion at the liver dome may represent benign cyst, not fully characterized this exam.
[2017-05-20 15:19] VITALS: BP 162/87; PULSE 89; RESP 18; TEMP 97.6; O2SAT 99
--- NOTE | 2017-05-20 17:14 | C.PDOC ---
History Of Present Illness 51 y/o female presents to ED c/o right sided abdominal pain for the past 2-3 days. Pt states she slipped and landed on her buttocks 3 days ago, and continues to have abdominal pain. Pt admits to not taking any of her chronic medications today. Pt is able to ambulate without significant difficulty. Denies nausea, vomiting, diarrhea, fever, dysuria, hematuria, blood in stool, cough, or chest pain. Time Seen by Provider: 05/20/17 10:01 Chief Complaint (Nursing): Abdominal Pain History Per: Patient History/Exam Limitations: no limitations Onset/Duration Of Symptoms: Days Current Symptoms Are (Timing): Still Present Quality Of Discomfort: "Pain" Past Medical History Reviewed: Historical Data, Nursing Documentation, Vital Signs Vital Signs: Last Vital Signs Temp 97.6 F 05/20/17 15:18 Pulse 89 05/20/17 15:18 Resp 18 05/20/17 15:18 BP 162/87 H 05/20/17 15:18 Pulse Ox 99 05/20/17 17:17 - Medical History PMH: Anemia, Arthritis (KNEE; BACK), CAD, COPD, Diabetes, HTN, Hypercholesterolemia Denies: Pulmonary Embolism, Chronic Kidney Disease Surgical History: CABG (09/19) - [facility] ASSIST WITH CARDIAC OUTPUT USING BALLOON PUMP, INTERMITTENT (08/31/15) EXCISION OF DUODENUM, ENDO, DIAGN (06/07/16) EXCISION OF STOMACH, ENDO, DIAGN (06/07/16) FLUOROSCOPY OF LEFT HEART USING LOW OSMOLAR CONTRAST (08/31/15) FLUOROSCOPY OF MULT COR ART USING L OSM CONTRAST (08/31/15) MEASURE OF CARDIAC SAMPL & PRESSURE, L HEART, PERC APPROACH (08/31/15) TRANSFUSE NONAUT RED BLOOD CELLS IN PERIPH VEIN, PERC (03/13/15) TRANSFUSE NONAUT WHOLE BLOOD IN PERIPH VEIN, PERC (03/11/16) Family History: States: Unknown Family Hx, CAD (mother) - Social History Hx Tobacco Use: No Hx Alcohol Use: No Hx Substance Use: No - Immunization History Hx Tetanus Toxoid Vaccination: No Hx Influenza Vaccination: Yes Hx Pneumococcal Vaccination: No Review Of Systems Except As Marked, All Systems Reviewed And Found Negative. Constitutional: Negative for: Fever, Chills Gastrointestinal: Positive for: Abdominal Pain. Negative for: Nausea, Vomiting , Constipation, Hematochezia Genitourinary: Negative for: Dysuria, Frequency, Hematuria Musculoskeletal: Negative for: Back Pain Physical Exam - Physical Exam Appears: Non-toxic, No Acute Distress Skin: Normal Color, Warm, Dry Head: Atraumatic, Normacephalic Eye(s): bilateral: Normal Inspection Oral Mucosa: Moist Cardiovascular: Rhythm Regular, No Murmur Respiratory: Normal Breath Sounds, No Rales, No Rhonchi, No Wheezing Gastrointestinal/Abdominal: Soft, Tenderness (mild right sided), No Guarding, No Rebound Back: No CVA Tenderness Extremity: Normal ROM Neurological/Psych: Oriented x3, Normal Speech ED Course And Treatment - Laboratory Results Result Diagrams: 05/20/17 10:54 05/20/17 10:54 O2 Sat by Pulse Oximetry: 99 Pulse Ox Interpretation: Normal Progress Note: Blood work, UA, Abd & Pelvis CT ordered and reviewed. Pt was given Insulin, Toradol, and Zofran. On re-eval, pt reports feeling better. BP and blood sugar level return to normal limits. Pt is being discharged home with instructions to follow up with PMD in 1-2 days for further evaluation. Disposition - Disposition Referrals: [employer] Faby Singh, [Non-Staff] - Disposition: HOME/ ROUTINE Disposition Time: 14:40 Condition: GOOD Additional Instructions: Thank you for letting us take care of you today. The emergency medical care you received today was directed at your acute symptoms. If you were prescribed any medication, please fill it and take as directed. It may take several days for your symptoms to resolve. Return to the Emergency Department if your symptoms worsen, do not improve, or if you have any other problems. Please contact your doctor or call one of the physicians/clinics you have been referred to that are listed on the Patient Visit Information form that is included in your discharge packet. Bring any paperwork you were given at discharge with you along with any medications you are taking to your follow up visit. Our treatment cannot replace ongoing medical care by a primary care provider (PCP) outside of the emergency department. Thank you for allowing the [facility] team to be part of your care today. TAKE YOUR REGULAR MEDICATION WHEN YOU GET HOME. Follow up with your doctor in 2-3 days for re-evaluation and further management. Prescriptions: Cyclobenzaprine [Cyclobenzaprine HCl] 10 mg PO Q8 PRN #20 tab PRN Reason: Muscle Spasm Ibuprofen [Motrin] 600 mg PO Q6 PRN #20 tab PRN Reason: Pain, Moderate (4-7) Instructions: Musculoskeletal Pain (ED), Hypertension (ED) Forms: [facility] (Macedonian) - Clinical Impression Clinical Impression: Htn Musculoskeletal pain - Scribe Statement The provider has reviewed the documentation as recorded by the Scribe Ruth Marroquin All medical record entries made by the Scribe were at my direction and personally dictated by me. I have reviewed the chart and agree that the record accurately reflects my personal performance of the history, physical exam, medical decision making, and the department course for this patient. I have also personally directed, reviewed, and agree with the discharge instructions and disposition.
== END 2017-05-20 15:35 | disposition home or self-care (01) ==
LOC: C.ER 09:42
DX: M79.1 Myalgia (principal); I10 Essential (primary) hypertension; E11.9 Type 2 diabetes mellitus without complications
CPT/HCPCS: 74177; 80053; 81001; 82948; 83690; 85025; 87086; 87181; 96374; 96375; 99285; J1885; J2405; J7120; Q9966; Q9967

== ENCOUNTER 2018-01-19 20:38 | Inpatient (IN) | payer OTHER ==
[2018-01-19 20:39] VITALS: BMI 25.0
[2018-01-19] MEDS ORDERED: Sodium Chloride 0.9% 1,000 ML ONE (21:04)
[2018-01-19] MEDS ORDERED: Sodium Chloride 0.9% 1,000 ML IV ONE (21:16)
[2018-01-19] MEDS ORDERED: cefTRIAXone IV 1 gm in Dextros 50 ML IVPB ONE (21:20)
--- NOTE | 2018-01-19 21:24 | C.PDOC ---
History Of Present Illness 52 year old female with PMHx of DM is sent to the ED by Dr. Mcmanus and Dr. Haddad for evaluation. Patient has a small ulceration to the right outer aspect of her foot. Patient states having the ulceration for the past week with no discharge seen. Patient denies fever, chills, CP, SOB, nausea, vomit, diarrhea, weakness, numbness, injury, fall, trauma. Chief Complaint (Nursing): High Blood Sugar History Per: Patient History/Exam Limitations: no limitations Onset/Duration Of Symptoms: Days Current Symptoms Are (Timing): Still Present Severity: None Treatment Prior To Provider Evaluation: Accucheck Recent travel outside of the [place]: No Additional History Per: Patient Past Medical History Reviewed: Historical Data, Nursing Documentation, Vital Signs Vital Signs: Last Vital Signs Temp 98.4 F 01/19/18 21:00 Pulse 97 H 01/19/18 22:08 Resp 14 01/19/18 22:08 BP 162/77 H 01/19/18 22:08 Pulse Ox 97 01/19/18 22:22 - Medical History PMH: Anemia, Arthritis (KNEE; BACK), CAD, COPD, Diabetes, HTN, Hypercholesterolemia Denies: Pulmonary Embolism, Chronic Kidney Disease Surgical History: CABG (09/19) - [facility] Procedures ASSIST WITH CARDIAC OUTPUT USING BALLOON PUMP, INTERMITTENT (08/31/15) EXCISION OF DUODENUM, ENDO, DIAGN (06/07/16) EXCISION OF STOMACH, ENDO, DIAGN (06/07/16) FLUOROSCOPY OF LEFT HEART USING LOW OSMOLAR CONTRAST (08/31/15) FLUOROSCOPY OF MULT COR ART USING L OSM CONTRAST (08/31/15) MEASURE OF CARDIAC SAMPL & PRESSURE, L HEART, PERC APPROACH (08/31/15) TRANSFUSE NONAUT RED BLOOD CELLS IN PERIPH VEIN, PERC (03/13/15) TRANSFUSE NONAUT WHOLE BLOOD IN PERIPH VEIN, PERC (03/11/16) Family History: States: Unknown Family Hx, CAD (mother) - Social History Hx Tobacco Use: No Hx Alcohol Use: No Hx Substance Use: No - Immunization History Hx Tetanus Toxoid Vaccination: No Hx Influenza Vaccination: Yes Hx Pneumococcal Vaccination: No Review Of Systems Constitutional: Negative for: Fever, Chills Cardiovascular: Negative for: Chest Pain, Palpitations Respiratory: Negative for: Shortness of Breath Gastrointestinal: Negative for: Nausea, Vomiting, Abdominal Pain Musculoskeletal: Positive for: Foot Pain Skin: Positive for: Other (ulceration) Neurological: Negative for: Weakness, Numbness Physical Exam - Physical Exam Appears: Non-toxic, No Acute Distress Skin: Normal Color, Warm, Dry Head: Atraumatic, Normacephalic Eye(s): bilateral: Normal Inspection Oral Mucosa: Moist Neck: Normal ROM, Supple Chest: Symmetrical, Other (sternotomy scar) Cardiovascular: Rhythm Regular Respiratory: Normal Breath Sounds, No Rales, No Rhonchi, No Wheezing Gastrointestinal/Abdominal: Soft, No Tenderness, No Guarding, No Rebound Extremity: Normal ROM, Tenderness (outer aspect right foot), Capillary Refill ( < 2 seconds), Swelling (outer aspect right foot), Other (small ulceration outer aspect right foot with black discoloration. nno discharge seen) Pulses: Left Dorsalis Pedis: Normal, Right Dorsalis Pedis: Normal Neurological/Psych: Oriented x3, Normal Speech Gait: Steady ED Course And Treatment - Laboratory Results Result Diagrams: 01/19/18 21:28 01/19/18 21:28 ECG: Interpreted By Me, Viewed By Me ECG Rhythm: Sinus Rhythm, ST/T Changes ECG Interpretation: Abnormal Interpretation Of ECG: NSR, ST-T abnormality in infero-lateral leads, abnormal tracings, no significant change from tracings of 03/07/2017 Rate From EC O2 Sat by Pulse Oximetry: 97 (ON RA) Pulse Ox Interpretation: Normal - Radiology CXR: Interpreted by Me, Viewed By Me CXR Interpretation: Yes: No Acute Disease. No: Infiltrates, Cardiomegaly ( normal chest film) Medical Decision Making Medical Decision Making: Plan: * EKG * Labs * CXR * IV fluids * Rocephin IVPB * Blood culture * Urine culture * Wound culture Disposition Discussed With : Carlos Haddad Doctor Will See Patient In The: Hospital Counseled Patient/Family Regarding: Diagnosis - Disposition Disposition: HOSPITALIZED Disposition Time: 22:21 Condition: STABLE Forms: [facility] (Finnish) - Clinical Impression Clinical Impression: Diabetic complication, Non-healing ulcer of foot, Renal insufficiency - Scribe Statement The provider has reviewed the documentation as recorded by the Scribe Andrés Baker All medical record entries made by the Scribe were at my direction and personally dictated by me. I have reviewed the chart and agree that the record accurately reflects my personal performance of the history, physical exam, medical decision making, and the department course for this patient. I have also personally directed, reviewed, and agree with the discharge instructions and disposition.
[2018-01-19 21:44] LABS: BASO # 0.1 K/uL (0.0-0.2); BASO % 0.9 % (0.0-2.0); EOS # 0.4 K/uL (0.0-0.7); EOS % 3.6 % (0.0-4.0); HEMOGLOBIN 9.8 g/dL (11.0-16.0); LYMPH # 2.3 K/uL (1.0-4.3); LYMPH % 23.1 % (20.0-40.0); MEAN CELL VOLUME 73.7 fL (81.0-99.0); MEAN CORPUSCULAR HEMOGLOBIN 25.2 pg (27.0-31.0); MEAN CORPUSCULAR HGB CONC 34.1 g/dL (33.0-37.0); MEAN PLATELET VOLUME 8.1 fL (7.2-11.7); MONO # 0.5 K/uL (0.0-0.8); MONO % 5.2 % (0.0-10.0); NEUT # 6.6 K/uL (1.8-7.0); NEUT % 67.2 % (50.0-75.0); RBC 3.88 Mil/uL (3.80-5.20); RED CELL DISTRIBUTION WIDTH 15.2 % (11.5-14.5); WHITE BLOOD COUNT 9.8 K/uL (4.8-10.8)
[2018-01-19 21:50] LABS: ALB/GLOB RATIO 0.9 (1.0-2.1); ALBUMIN 2.9 g/dL (3.5-5.0); CALCIUM 8.7 mg/dl (8.6-10.4)
[2018-01-20 01:10] VITALS: RESP 20
[2018-01-20] MEDS ORDERED: Albuterol HFA 90 mcg/actuation (8 g) IH PRN (08:08)
[2018-01-20] MEDS: (Novolog) Insulin Aspart, Recombinant 100 u/ml 10 ml vial SC SCH ×4 (08:30→21:36)
--- NOTE | 2018-01-20 08:56 | RAD ---
HISTORY: COMPARISON: 03/07/2017. TECHNIQUE: Chest PA and lateral FINDINGS: LINES AND TUBES: None. LUNG AND PLEURA: The lungs are well inflated and clear. No pleural effusion or pneumothorax. HEART AND MEDIASTINUM: There is mild cardiomegaly. Status post CABG. The hilar and mediastinal contours are within normal limits. SKELETAL STRUCTURES: The bony structures are within normal limits for the patient's age. VISUALIZED UPPER ABDOMEN: Normal. OTHER FINDINGS: None. IMPRESSION: No active pulmonary disease.
[2018-01-20] MEDS: Pantoprazole 40 mg EC Tab PO SCH (09:40)
[2018-01-20] MEDS: Enoxaparin 30 mg Syringe SC SCH (09:40)
[2018-01-20] MEDS: Metoprolol Succinate 25 mg XL Tab PO SCH (09:41)
[2018-01-20] MEDS ORDERED: Home Med 1 UNIT (Meloxicam [Mobic] 15 MG) PO SCH (10:00)
[2018-01-20 11:14] LABS: BASO # 0.1 K/uL (0.0-0.2); BASO % 1.1 % (0.0-2.0); EOS # 0.4 K/uL (0.0-0.7); HEMOGLOBIN 9.1 g/dL (11.0-16.0); LYMPH # 2.2 K/uL (1.0-4.3); LYMPH % 23.6 % (20.0-40.0); MEAN CELL VOLUME 75.2 fL (81.0-99.0); MEAN CORPUSCULAR HEMOGLOBIN 24.3 pg (27.0-31.0); MEAN CORPUSCULAR HGB CONC 32.2 g/dL (33.0-37.0); MEAN PLATELET VOLUME 8.5 fL (7.2-11.7); MONO # 0.6 K/uL (0.0-0.8); MONO % 6.3 % (0.0-10.0); NEUT # 6.1 K/uL (1.8-7.0); RBC 3.75 Mil/uL (3.80-5.20); RED CELL DISTRIBUTION WIDTH 15.3 % (11.5-14.5); WHITE BLOOD COUNT 9.5 K/uL (4.8-10.8)
[2018-01-20 11:22] LABS: ALB/GLOB RATIO 0.8 (1.0-2.1); ALBUMIN 2.5 g/dL (3.5-5.0); CALCIUM 8.5 mg/dl (8.6-10.4)
--- NOTE | 2018-01-20 12:06 | CT ---
Date of service: 01/20/2018 PROCEDURE: CT HEAD WITHOUT CONTRAST. HISTORY: severe head ache COMPARISON: None available. TECHNIQUE: Axial computed tomography images were obtained through the head/brain without intravenous contrast. Radiation dose: Total exam DLP = 955.99 mGy-cm. This CT exam was performed using one or more of the following dose reduction techniques: Automated exposure control, adjustment of the mA and/or kV according to patient size, and/or use of iterative reconstruction technique. FINDINGS: HEMORRHAGE: No intracranial hemorrhage. BRAIN: No mass effect or edema. No atrophy or chronic microvascular ischemic changes. VENTRICLES: Unremarkable. No hydrocephalus. CALVARIUM: Unremarkable. PARANASAL SINUSES: Unremarkable as visualized. No significant inflammatory changes. MASTOID AIR CELLS: Unremarkable as visualized. No inflammatory changes. OTHER FINDINGS: None. IMPRESSION: No evidence of acute intracranial hemorrhage intracranial collection mass effect or midline shift.
[2018-01-20] MEDS: Albuterol-Ipratrop 3 mg / 0.5 (3 ml) UD INH SCH ×2 (13:56→19:32)
--- NOTE | 2018-01-20 14:16 | CP.PCM.CON ---
History of Present Illness - History of Present Illness History of Present Illness: I was consulted for neurology for this patient with DM and now acute onset headache. The patient presented to the ED last night with a nonhealing ulcer of the right foot for past 7 days, and admitted for IV antibiotics. This morning, the patient developed frontal headache, with photophobia, 9/10 on pain scale, throbbing and stabbing, not associatd wtih nausea or vomiting or photophobia, and alleviated by motrin. CT head performed and found to have no acute hemorrhage, or stroke. ROS: no vomiting, diarrhea, numbness, tingling, weakness or aphasia. PMH/PSH: Dm, anemia, arthritis, CAD, COPD, htn, hypercholesterolemia, s/p CABG FH/SH: no smoking, no tobacco. unmarried. unemployed. All: nkda. on exam: patient has great difficulty with opening her eyes during her exam. otherwise neuro exam is normal. no focal neurological deficits. Past Patient History - Infectious Disease Hx of Infectious Diseases: None - Past Medical History & Family History Past Medical History?: Yes - Past Social History Smoking Status: Never Smoked - CARDIAC Hx Hypercholesterolemia: Yes Hx Hypertension: Yes - PULMONARY Hx Chronic Obstructive Pulmonary Disease (COPD): Yes Hx Pulmonary Embolism: No - NEUROLOGICAL Hx Neurological Disorder: No Hx Syncope: Yes - HEENT Hx HEENT Problems: No - RENAL Hx Chronic Kidney Disease: No - ENDOCRINE/METABOLIC Hx Endocrine Disorders: Yes Hx Diabetes Mellitus Type 1: Yes - HEMATOLOGICAL/ONCOLOGICAL Hx Anemia: Yes - INTEGUMENTARY Hx Dermatological Problems: No - MUSCULOSKELETAL/RHEUMATOLOGICAL Hx Arthritis: Yes (KNEE; BACK) Hx Falls: Yes - GASTROINTESTINAL Hx Gastrointestinal Disorders: Yes Hx Gastroesophageal Reflux: Yes - GENITOURINARY/GYNECOLOGICAL Hx Genitourinary Disorders: No - PSYCHIATRIC Hx Substance Use: No - SURGICAL HISTORY Hx Coronary Artery Bypass Graft: Yes (09/19) - ANESTHESIA Hx Anesthesia: Yes Hx Anesthesia Reactions: No Hx Malignant Hyperthermia: No Meds Allergies/Adverse Reactions: Allergies Allergy/AdvReac Type Severity Reaction Status Date / Time No Known Allergies Allergy Verified 05/20/17 09:51 - Medications Medications: Current Medications Albuterol/Ipratropium (Duoneb 3 Mg/0.5 Mg (3 Ml) Ud) 3 ml INH RQ6 [facility] Last Admin: 01/20/18 13:56 Dose: 3 ml Aspirin (Ecotrin) 81 mg PO DAILY [facility] Last Admin: 01/20/18 09:41 Dose: 81 mg Cyclobenzaprine HCl (Flexeril) 10 mg PO Q8 PRN PRN Reason: Muscle spasm Enoxaparin Sodium (Lovenox) 30 mg SC DAILY [facility] Last Admin: 01/20/18 09:40 Dose: 30 mg Ferrous Sulfate (Feosol) 325 mg PO TID [facility] Last Admin: 01/20/18 09:41 Dose: 325 mg Gabapentin (Neurontin) 100 mg PO TID [facility] Last Admin: 01/20/18 09:40 Dose: 100 mg Ceftriaxone Sodium 1 gm/ (Sodium Chloride) 100 mls @ 100 mls/hr IVPB Q24H [facility] PRN Reason: Protocol Ibuprofen (Motrin Tab) 600 mg PO Q6 PRN PRN Reason: Pain, moderate (4-7) Last Admin: 01/20/18 09:59 Dose: 600 mg Insulin Aspart (Novolog) 0 unit SC ACHS [facility] PRN Reason: Protocol Last Admin: 01/20/18 12:30 Dose: 3 units Insulin Glargine (Lantus) 24 unit SC [facility] Metformin HCl (Glucophage) 1,000 mg PO BID [facility] Last Admin: 01/20/18 09:40 Dose: 1,000 mg Metoprolol Succinate (Toprol Xl) 25 mg PO DAILY [facility] Last Admin: 01/20/18 09:41 Dose: 25 mg Pantoprazole Sodium (Protonix Ec Tab) 40 mg PO DAILY [facility] Last Admin: 01/20/18 09:40 Dose: 40 mg Rosuvastatin Calcium (Crestor) 5 mg PO HS [facility] Fluticasone/Salmeterol (Advair Diskus 500/50) 1 puff INH RQ12 [facility] Results - Vital Signs Recent Vital Signs: Last Vital Signs Temp 98.6 F 01/20/18 08:00 Pulse 98 H 01/20/18 08:00 Resp 20 01/20/18 08:00 BP 155/79 H 01/20/18 08:00 Pulse Ox 97 01/20/18 08:00 - Labs Result Diagrams: 01/20/18 10:53 01/20/18 10:53 Labs: Laboratory Results - last 24 hr 01/19/18 01/19/18 01/19/18 21:28 21:28 21:31 WBC 9.8 RBC 3.88 Hgb 9.8 L Hct 28.6 L MCV 73.7 L D MCH 25.2 L MCHC 34.1 RDW 15.2 H Plt Count 358 MPV 8.1 Neut % (Auto) 67.2 Lymph % (Auto) 23.1 [place] % (Auto) 5.2 Eos % (Auto) 3.6 Baso % (Auto) 0.9 Neut # (Auto) 6.6 Lymph # (Auto) 2.3 [place] # (Auto) 0.5 Eos # (Auto) 0.4 Baso # (Auto) 0.1 Sodium 140 Potassium 4.7 Chloride 108 H Carbon Dioxide 25 Anion Gap 13 BUN 28 H Creatinine 2.5 H Est GFR ( Amer) 25 Est GFR (Non-Af Amer) 20 POC Glucose (mg/dL) 308 H Random Glucose 266 H Calcium 8.7 Phosphorus Magnesium Total Bilirubin 0.1 L AST 14 D ALT 22 Alkaline Phosphatase 80 Total Protein 6.0 L Albumin 2.9 L Globulin 3.1 Albumin/Globulin Ratio 0.9 L B-Hydroxybutyrate 0.05 01/19/18 01/20/18 01/20/18 23:43 02:17 07:08 WBC RBC Hgb Hct MCV MCH MCHC RDW Plt Count MPV Neut % (Auto) Lymph % (Auto) [place] % (Auto) Eos % (Auto) Baso % (Auto) Neut # (Auto) Lymph # (Auto) [place] # (Auto) Eos # (Auto) Baso # (Auto) Sodium Potassium Chloride Carbon Dioxide Anion Gap BUN Creatinine Est GFR ( Amer) Est GFR (Non-Af Amer) POC Glucose (mg/dL) 288 H 225 H 206 H Random Glucose Calcium Phosphorus Magnesium Total Bilirubin AST ALT Alkaline Phosphatase Total Protein Albumin Globulin Albumin/Globulin Ratio B-Hydroxybutyrate 01/20/18 01/20/18 01/20/18 10:53 10:53 11:22 WBC 9.5 RBC 3.75 L Hgb 9.1 L Hct 28.2 L MCV 75.2 L MCH 24.3 L MCHC 32.2 L RDW 15.3 H Plt Count 324 MPV 8.5 Neut % (Auto) 65.0 Lymph % (Auto) 23.6 [place] % (Auto) 6.3 Eos % (Auto) 4.0 Baso % (Auto) 1.1 Neut # (Auto) 6.1 Lymph # (Auto) 2.2 [place] # (Auto) 0.6 Eos # (Auto) 0.4 Baso # (Auto) 0.1 Sodium 140 Potassium 4.7 Chloride 109 H Carbon Dioxide 22 Anion Gap 13 BUN 25 H Creatinine 2.1 H Est GFR ( Amer) 30 Est GFR (Non-Af Amer) 25 POC Glucose (mg/dL) 214 H Random Glucose 234 H Calcium 8.5 L Phosphorus 4.3 Magnesium 1.7 Total Bilirubin 0.4 AST 11 L D ALT 12 Alkaline Phosphatase 68 Total Protein 5.6 L Albumin 2.5 L Globulin 3.1 Albumin/Globulin Ratio 0.8 L B-Hydroxybutyrate - Imaging and Cardiology MRI - head Status: Image reviewed by me, Report reviewed by me (Ct head: normal. ) Assessment & Plan - Assessment and Plan (Free Text) Assessment: 52 yr old woman with what appears to be migraine without aura, exacerbated by her hormonal changes, and concurrent sepsis, and not likely to be stroke. She does, however, have many stroke risk factors, and should have aspirin. Plan: 1. imitrex 100 mg, benadryl 50mg, mag oxide 200 mg po now, and toradol 10 mg iv now. Thank you dr. pena
--- NOTE | 2018-01-20 16:31 | RAD ---
Date of service: 01/20/2018 PROCEDURE: Right Foot Radiographs. HISTORY: osteomyelitis lateral midfoot right COMPARISON: None. FINDINGS: BONES: There is diffuse bone demineralization. There is no acute fracture or bone erosion. There are deformities in the medial navicular and medial cuneiform. JOINTS: The joint spaces are preserved. SOFT TISSUES: There is mild lateral soft tissue swelling and irregularity in the midfoot. OTHER FINDINGS: None. IMPRESSION: No radiographic evidence of bony erosion to suggest osteomyelitis. Mild irregularity and soft tissue swelling in the lateral soft tissues of the midfoot may represent cellulitis and ulceration.
--- NOTE | 2018-01-20 17:58 | CP.PCM.CON ---
History of Present Illness - History of Present Illness History of Present Illness: Podiatry Consult Note- Dr. Mcmanus 52F PMH DM, COPD, and HTN seen and evaluated at bedside regarding right foot ulceration. Patient reports that last Tuesday, the wound appeared out of nowhere. Denies of any trauma or incident. Reports there was blue skin discoloration to the site in the beginning. Reports wound appears to be getting bigger. Denies noticing any drainage or odor. Reports Reports feeling chills for the past 2 weeks. Patient also complains of headache at bedside. Denies nausea, shortness of breath, chest pains or fever. PMH DM, HTN, COPD PSH: bypass, hysterectomy SH: denies smoking, reports socially drinking EtOH, denies illicit drug use ALL: NKDA MEDS: see MAR list Past Patient History - Infectious Disease Hx of Infectious Diseases: None - Past Medical History & Family History Past Medical History?: Yes - Past Social History Smoking Status: Never Smoked - CARDIAC Hx Cardiac Disorders: Yes Hx Hypercholesterolemia: Yes Hx Hypertension: Yes - PULMONARY Hx Chronic Obstructive Pulmonary Disease (COPD): Yes - NEUROLOGICAL Hx Neurological Disorder: No Hx Syncope: Yes - HEENT Hx HEENT Problems: No - RENAL Hx Chronic Kidney Disease: No - ENDOCRINE/METABOLIC Hx Diabetes Mellitus Type 1: Yes - HEMATOLOGICAL/ONCOLOGICAL Hx Anemia: Yes - INTEGUMENTARY Hx Dermatological Problems: No - MUSCULOSKELETAL/RHEUMATOLOGICAL Hx Arthritis: Yes (KNEE; BACK) - GASTROINTESTINAL Hx Gastrointestinal Disorders: Yes Hx Gastroesophageal Reflux: Yes - GENITOURINARY/GYNECOLOGICAL Hx Genitourinary Disorders: No - PSYCHIATRIC Hx Substance Use: No - SURGICAL HISTORY Hx Coronary Artery Bypass Graft: Yes (09/19) - ANESTHESIA Hx Anesthesia: Yes Hx Anesthesia Reactions: No Hx Malignant Hyperthermia: No Meds Allergies/Adverse Reactions: Allergies Allergy/AdvReac Type Severity Reaction Status Date / Time No Known Allergies Allergy Verified 05/20/17 09:51 - Medications Medications: Current Medications Albuterol/Ipratropium (Duoneb 3 Mg/0.5 Mg (3 Ml) Ud) 3 ml INH RQ6 [facility] Last Admin: 01/20/18 13:56 Dose: 3 ml Aspirin (Ecotrin) 81 mg PO DAILY [facility] Last Admin: 01/20/18 09:41 Dose: 81 mg Cyclobenzaprine HCl (Flexeril) 10 mg PO Q8 PRN PRN Reason: Muscle spasm Enoxaparin Sodium (Lovenox) 30 mg SC DAILY [facility] Last Admin: 01/20/18 09:40 Dose: 30 mg Ferrous Sulfate (Feosol) 325 mg PO TID [facility] Last Admin: 01/20/18 17:44 Dose: 325 mg Gabapentin (Neurontin) 100 mg PO TID [facility] Last Admin: 01/20/18 17:44 Dose: 100 mg Ceftriaxone Sodium 1 gm/ (Sodium Chloride) 100 mls @ 100 mls/hr IVPB Q24H [facility] PRN Reason: Protocol Last Admin: 01/20/18 15:00 Dose: 100 mls/hr Ibuprofen (Motrin Tab) 600 mg PO Q6 PRN PRN Reason: Pain, moderate (4-7) Last Admin: 01/20/18 09:59 Dose: 600 mg Insulin Aspart (Novolog) 0 unit SC ACHS [facility] PRN Reason: Protocol Last Admin: 01/20/18 17:45 Dose: 2 units Insulin Glargine (Lantus) 24 unit SC HS [facility] Metformin HCl (Glucophage) 1,000 mg PO BID [facility] Last Admin: 01/20/18 17:44 Dose: 1,000 mg Metoprolol Succinate (Toprol Xl) 25 mg PO DAILY [facility] Last Admin: 01/20/18 09:41 Dose: 25 mg Pantoprazole Sodium (Protonix Ec Tab) 40 mg PO DAILY [facility] Last Admin: 01/20/18 09:40 Dose: 40 mg Rosuvastatin Calcium (Crestor) 5 mg PO [facility] Fluticasone/Salmeterol (Advair Diskus 500/50) 1 puff INH RQ12 [facility] Physical Exam - Constitutional Appears: Well, Non-toxic, No Acute Distress - Extremities Exam Extremities exam: Negative for: calf tenderness Additional comments: VASC: DP and PT nonpalpable, temperature gradient WNL, CFT delayed to digits, no edema noted ORTHO: tenderness at site of ulceration NEURO: gross sensation intact, protective sensation diminished DERM: full thickness circular ulceration noted to the lateral aspect of 5th metatarsal base measuring approximately .5 cm in diameter. No drainage, mild erythema, no abscess or fluctanance noted, no streaking. Ulceration probes deep. No tunneling appreciated. - Neurological Exam Neurological exam: Alert - Psychiatric Exam Psychiatric exam: Normal Affect, Normal Mood Results - Vital Signs Recent Vital Signs: Last Vital Signs Temp 97.6 F 01/20/18 16:00 Pulse 85 01/20/18 16:00 Resp 20 01/20/18 16:00 BP 144/80 01/20/18 16:00 Pulse Ox 96 01/20/18 16:00 - Labs Result Diagrams: 01/20/18 10:53 01/20/18 10:53 Labs: Laboratory Results - last 24 hr 01/19/18 01/19/18 01/19/18 21:28 21:28 21:31 WBC 9.8 RBC 3.88 Hgb 9.8 L Hct 28.6 L MCV 73.7 L D MCH 25.2 L MCHC 34.1 RDW 15.2 H Plt Count 358 MPV 8.1 Neut % (Auto) 67.2 Lymph % (Auto) 23.1 [place] % (Auto) 5.2 Eos % (Auto) 3.6 Baso % (Auto) 0.9 Neut # (Auto) 6.6 Lymph # (Auto) 2.3 [place] # (Auto) 0.5 Eos # (Auto) 0.4 Baso # (Auto) 0.1 Sodium 140 Potassium 4.7 Chloride 108 H Carbon Dioxide 25 Anion Gap 13 BUN 28 H Creatinine 2.5 H Est GFR ( Amer) 25 Est GFR (Non-Af Amer) 20 POC Glucose (mg/dL) 308 H Random Glucose 266 H Calcium 8.7 Phosphorus Magnesium Total Bilirubin 0.1 L AST 14 D ALT 22 Alkaline Phosphatase 80 Total Protein 6.0 L Albumin 2.9 L Globulin 3.1 Albumin/Globulin Ratio 0.9 L B-Hydroxybutyrate 0.05 01/19/18 01/20/18 01/20/18 23:43 02:17 07:08 WBC RBC Hgb Hct MCV MCH MCHC RDW Plt Count MPV Neut % (Auto) Lymph % (Auto) [place] % (Auto) Eos % (Auto) Baso % (Auto) Neut # (Auto) Lymph # (Auto) [place] # (Auto) Eos # (Auto) Baso # (Auto) Sodium Potassium Chloride Carbon Dioxide Anion Gap BUN Creatinine Est GFR ( Amer) Est GFR (Non-Af Amer) POC Glucose (mg/dL) 288 H 225 H 206 H Random Glucose Calcium Phosphorus Magnesium Total Bilirubin AST ALT Alkaline Phosphatase Total Protein Albumin Globulin Albumin/Globulin Ratio B-Hydroxybutyrate 01/20/18 01/20/18 01/20/18 10:53 10:53 11:22 WBC 9.5 RBC 3.75 L Hgb 9.1 L Hct 28.2 L MCV 75.2 L MCH 24.3 L MCHC 32.2 L RDW 15.3 H Plt Count 324 MPV 8.5 Neut % (Auto) 65.0 Lymph % (Auto) 23.6 [place] % (Auto) 6.3 Eos % (Auto) 4.0 Baso % (Auto) 1.1 Neut # (Auto) 6.1 Lymph # (Auto) 2.2 [place] # (Auto) 0.6 Eos # (Auto) 0.4 Baso # (Auto) 0.1 Sodium 140 Potassium 4.7 Chloride 109 H Carbon Dioxide 22 Anion Gap 13 BUN 25 H Creatinine 2.1 H Est GFR ( Amer) 30 Est GFR (Non-Af Amer) 25 POC Glucose (mg/dL) 214 H Random Glucose 234 H Calcium 8.5 L Phosphorus 4.3 Magnesium 1.7 Total Bilirubin 0.4 AST 11 L D ALT 12 Alkaline Phosphatase 68 Total Protein 5.6 L Albumin 2.5 L Globulin 3.1 Albumin/Globulin Ratio 0.8 L B-Hydroxybutyrate 01/20/18 16:21 WBC RBC Hgb Hct MCV MCH MCHC RDW Plt Count MPV Neut % (Auto) Lymph % (Auto) [place] % (Auto) Eos % (Auto) Baso % (Auto) Neut # (Auto) Lymph # (Auto) [place] # (Auto) Eos # (Auto) Baso # (Auto) Sodium Potassium Chloride Carbon Dioxide Anion Gap BUN Creatinine Est GFR ( Amer) Est GFR (Non-Af Amer) POC Glucose (mg/dL) 179 H Random Glucose Calcium Phosphorus Magnesium Total Bilirubin AST ALT Alkaline Phosphatase Total Protein Albumin Globulin Albumin/Globulin Ratio B-Hydroxybutyrate Assessment & Plan - Assessment and Plan (Free Text) Assessment: 52F PMH DM, COPD, and HTN with right foot ulceration- r/o OM Plan: Patient seen and evaluated Discussed plan in detail with attending Dr Mcmanus Labs, charts reviewed X-rays right foot- no OM Right foot Wound culture- pending Ordered SUSY's of bilateral lower extremity Will need to order MRI of right lower extremity to rule out OM Cleansed ulceration with saline solution, dressed with betadine dsd and kerlix Will continue to follow patient while in house
--- NOTE | 2018-01-20 18:25 | CP.PCM.CON ---
History of Present Illness - History of Present Illness History of Present Illness: patient presented to the ED last night with a nonhealing ulcer of the right foot for past 7 days, and admitted for IV antibiotics. referred for ID eval for possible OM Vascular eval, MRI and cultures pending IV antibiotic in progress PMH/PSH: Dm, anemia, arthritis, CAD, COPD, htn, hypercholesterolemia, s/p CABG FH/SH: no smoking, no tobacco. unmarried. unemployed. All: nkda. Review of Systems - Review of Systems All systems: reviewed and no additional remarkable complaints except Past Patient History - Infectious Disease Hx of Infectious Diseases: None - Past Medical History & Family History Past Medical History?: Yes - Past Social History Smoking Status: Never Smoked - CARDIAC Hx Cardiac Disorders: Yes Hx Hypercholesterolemia: Yes Hx Hypertension: Yes - PULMONARY Hx Chronic Obstructive Pulmonary Disease (COPD): Yes - NEUROLOGICAL Hx Neurological Disorder: No Hx Syncope: Yes - HEENT Hx HEENT Problems: No - RENAL Hx Chronic Kidney Disease: No - ENDOCRINE/METABOLIC Hx Diabetes Mellitus Type 1: Yes - HEMATOLOGICAL/ONCOLOGICAL Hx Anemia: Yes - INTEGUMENTARY Hx Dermatological Problems: No - MUSCULOSKELETAL/RHEUMATOLOGICAL Hx Arthritis: Yes (KNEE; BACK) - GASTROINTESTINAL Hx Gastrointestinal Disorders: Yes Hx Gastroesophageal Reflux: Yes - GENITOURINARY/GYNECOLOGICAL Hx Genitourinary Disorders: No - PSYCHIATRIC Hx Substance Use: No - SURGICAL HISTORY Hx Coronary Artery Bypass Graft: Yes (09/19) - ANESTHESIA Hx Anesthesia: Yes Hx Anesthesia Reactions: No Hx Malignant Hyperthermia: No Meds Allergies/Adverse Reactions: Allergies Allergy/AdvReac Type Severity Reaction Status Date / Time No Known Allergies Allergy Verified 05/20/17 09:51 - Medications Medications: Current Medications Acetaminophen/Butalbital/Caffeine (Fioricet) 1 tab PO Q6 PRN PRN Reason: Headache Albuterol/Ipratropium (Duoneb 3 Mg/0.5 Mg (3 Ml) Ud) 3 ml INH RQ6 [facility] Last Admin: 01/20/18 13:56 Dose: 3 ml Aspirin (Ecotrin) 81 mg PO DAILY [facility] Last Admin: 01/20/18 09:41 Dose: 81 mg Cyclobenzaprine HCl (Flexeril) 10 mg PO Q8 PRN PRN Reason: Muscle spasm Enoxaparin Sodium (Lovenox) 30 mg SC DAILY [facility] Last Admin: 01/20/18 09:40 Dose: 30 mg Ferrous Sulfate (Feosol) 325 mg PO TID [facility] Last Admin: 01/20/18 17:44 Dose: 325 mg Gabapentin (Neurontin) 100 mg PO TID [facility] Last Admin: 01/20/18 17:44 Dose: 100 mg Ceftriaxone Sodium 1 gm/ (Sodium Chloride) 100 mls @ 100 mls/hr IVPB Q24H [facility] PRN Reason: Protocol Last Admin: 01/20/18 15:00 Dose: 100 mls/hr Ibuprofen (Motrin Tab) 600 mg PO Q6 PRN PRN Reason: Pain, moderate (4-7) Last Admin: 01/20/18 09:59 Dose: 600 mg Insulin Aspart (Novolog) 0 unit SC ACHS [facility] PRN Reason: Protocol Last Admin: 01/20/18 17:45 Dose: 2 units Insulin Glargine (Lantus) 24 unit SC HS [facility] Metformin HCl (Glucophage) 1,000 mg PO BID [facility] Last Admin: 01/20/18 17:44 Dose: 1,000 mg Metoprolol Succinate (Toprol Xl) 25 mg PO DAILY [facility] Last Admin: 01/20/18 09:41 Dose: 25 mg Pantoprazole Sodium (Protonix Ec Tab) 40 mg PO DAILY [facility] Last Admin: 01/20/18 09:40 Dose: 40 mg Rosuvastatin Calcium (Crestor) 5 mg PO [facility] Fluticasone/Salmeterol (Advair Diskus 500/50) 1 puff INH RQ12 [facility] Physical Exam - Constitutional Appears: Chronically Ill - Head Exam Head Exam: ATRAUMATIC - Eye Exam Eye Exam: absent: Scleral icterus - ENT Exam ENT Exam: Mucous Membranes Dry, Normal Oropharynx - Neck Exam Neck exam: Negative for: Lymphadenopathy - Respiratory Exam Respiratory Exam: Decreased Breath Sounds - Cardiovascular Exam Cardiovascular Exam: REGULAR RHYTHM - GI/Abdominal Exam GI & Abdominal Exam: Diminished Bowel Sounds, Soft. absent: Tenderness - Rectal Exam Rectal Exam: Deferred - Exam Exam: NORMAL INSPECTION - Extremities Exam Extremities exam: Positive for: tenderness. Negative for: calf tenderness, pedal pulses present Additional comments: ulcer lateral right foot - dry necrotic edges - Back Exam Back exam: absent: CVA tenderness (L), CVA tenderness (R) - Neurological Exam Neurological exam: Alert, CN II-XII Intact, Oriented x3, Reflexes Normal - Psychiatric Exam Psychiatric exam: Normal Mood - Skin Skin Exam: Dry Results - Vital Signs Recent Vital Signs: Last Vital Signs Temp 97.6 F 01/20/18 16:00 Pulse 85 01/20/18 16:00 Resp 20 01/20/18 16:00 BP 144/80 01/20/18 16:00 Pulse Ox 96 01/20/18 16:00 - Labs Result Diagrams: 01/20/18 10:53 01/23/18 08:08 Labs: Laboratory Results - last 24 hr 01/19/18 01/19/18 01/19/18 21:28 21:28 21:31 WBC 9.8 RBC 3.88 Hgb 9.8 L Hct 28.6 L MCV 73.7 L D MCH 25.2 L MCHC 34.1 RDW 15.2 H Plt Count 358 MPV 8.1 Neut % (Auto) 67.2 Lymph % (Auto) 23.1 Johnson % (Auto) 5.2 Eos % (Auto) 3.6 Baso % (Auto) 0.9 Neut # (Auto) 6.6 Lymph # (Auto) 2.3 Johnson # (Auto) 0.5 Eos # (Auto) 0.4 Baso # (Auto) 0.1 Sodium 140 Potassium 4.7 Chloride 108 H Carbon Dioxide 25 Anion Gap 13 BUN 28 H Creatinine 2.5 H Est GFR ( Amer) 25 Est GFR (Non-Af Amer) 20 POC Glucose (mg/dL) 308 H Random Glucose 266 H Calcium 8.7 Phosphorus Magnesium Total Bilirubin 0.1 L AST 14 D ALT 22 Alkaline Phosphatase 80 Total Protein 6.0 L Albumin 2.9 L Globulin 3.1 Albumin/Globulin Ratio 0.9 L B-Hydroxybutyrate 0.05 01/19/18 01/20/18 01/20/18 23:43 02:17 07:08 WBC RBC Hgb Hct MCV MCH MCHC RDW Plt Count MPV Neut % (Auto) Lymph % (Auto) Johnson % (Auto) Eos % (Auto) Baso % (Auto) Neut # (Auto) Lymph # (Auto) Johnson # (Auto) Eos # (Auto) Baso # (Auto) Sodium Potassium Chloride Carbon Dioxide Anion Gap BUN Creatinine Est GFR ( Amer) Est GFR (Non-Af Amer) POC Glucose (mg/dL) 288 H 225 H 206 H Random Glucose Calcium Phosphorus Magnesium Total Bilirubin AST ALT Alkaline Phosphatase Total Protein Albumin Globulin Albumin/Globulin Ratio B-Hydroxybutyrate 01/20/18 01/20/18 01/20/18 10:53 10:53 11:22 WBC 9.5 RBC 3.75 L Hgb 9.1 L Hct 28.2 L MCV 75.2 L MCH 24.3 L MCHC 32.2 L RDW 15.3 H Plt Count 324 MPV 8.5 Neut % (Auto) 65.0 Lymph % (Auto) 23.6 Johnson % (Auto) 6.3 Eos % (Auto) 4.0 Baso % (Auto) 1.1 Neut # (Auto) 6.1 Lymph # (Auto) 2.2 Johnson # (Auto) 0.6 Eos # (Auto) 0.4 Baso # (Auto) 0.1 Sodium 140 Potassium 4.7 Chloride 109 H Carbon Dioxide 22 Anion Gap 13 BUN 25 H Creatinine 2.1 H Est GFR ( Amer) 30 Est GFR (Non-Af Amer) 25 POC Glucose (mg/dL) 214 H Random Glucose 234 H Calcium 8.5 L Phosphorus 4.3 Magnesium 1.7 Total Bilirubin 0.4 AST 11 L D ALT 12 Alkaline Phosphatase 68 Total Protein 5.6 L Albumin 2.5 L Globulin 3.1 Albumin/Globulin Ratio 0.8 L B-Hydroxybutyrate 01/20/18 16:21 WBC RBC Hgb Hct MCV MCH MCHC RDW Plt Count MPV Neut % (Auto) Lymph % (Auto) Johnson % (Auto) Eos % (Auto) Baso % (Auto) Neut # (Auto) Lymph # (Auto) Johnson # (Auto) Eos # (Auto) Baso # (Auto) Sodium Potassium Chloride Carbon Dioxide Anion Gap BUN Creatinine Est GFR ( Amer) Est GFR (Non-Af Amer) POC Glucose (mg/dL) 179 H Random Glucose Calcium Phosphorus Magnesium Total Bilirubin AST ALT Alkaline Phosphatase Total Protein Albumin Globulin Albumin/Globulin Ratio B-Hydroxybutyrate Assessment & Plan (1) CKD (chronic kidney disease) Status: Acute (2) PVD (peripheral vascular disease) Status: Acute (3) PVD (peripheral vascular disease) Status: Acute (4) Non-healing ulcer of foot Status: Acute (5) Chr obstructive pulmonary disease w/ acute lower respiratory infxn Status: Acute (6) Diabetes mellitus type 2 in nonobese Status: Chronic (7) Hypertension Status: Chronic - Assessment and Plan (Free Text) Assessment: severe PVD ischemic ulcer right foot r/o OM recc CTA, MRI foot IV antibiotics
[2018-01-20] MEDS: Fluticasone-Salmeterol 500-50mcg Diskus INH SCH (19:32)
[2018-01-20] MEDS: (Lantus) Insulin Glargine, Recombinant SC SCH (21:35)
[2018-01-20] MEDS: Apap-Butalbital-Caffeine 325-50-40mg Tab PO PRN (21:35)
[2018-01-21] MEDS: Albuterol-Ipratrop 3 mg / 0.5 (3 ml) UD INH SCH ×4 (02:11→20:38)
[2018-01-21] MEDS: (Novolog) Insulin Aspart, Recombinant 100 u/ml 10 ml vial SC SCH ×4 (08:00→23:17)
[2018-01-21] MEDS: Fluticasone-Salmeterol 500-50mcg Diskus INH SCH ×2 (08:11→20:39)
--- NOTE | 2018-01-21 11:03 | CP.PCM.PN ---
Subjective - Date & Time of Evaluation Date of Evaluation: 01/21/18 Time of Evaluation: 10:59 - Subjective Subjective: Podiatry Progress Note for Dr. Mcmanus 52 yo female seen and evaluated at bedside for right foot ulceration. Patient is resting comfortably and in NAD. Patient denies any pain to the area and denies any new pedal complaints. Denies N/V/F/SOB/CP. Objective - Vital Signs/Intake and Output Vital Signs (last 24 hours): Temp Pulse Resp BP Pulse Ox 98.1 F 82 20 156/82 H 97 01/21/18 08:09 01/21/18 08:09 01/21/18 08:09 01/21/18 08:09 01/21/18 08:09 Intake and Output: 01/21/18 01/21/18 06:59 18:59 Intake Total 540 Balance 540 - Medications Medications: Current Medications Acetaminophen/Butalbital/Caffeine (Fioricet) 1 tab PO Q6 PRN PRN Reason: Headache Last Admin: 01/20/18 21:35 Dose: 1 tab Albuterol/Ipratropium (Duoneb 3 Mg/0.5 Mg (3 Ml) Ud) 3 ml INH RQ6 [facility] Last Admin: 01/21/18 08:11 Dose: 3 ml Aspirin (Ecotrin) 81 mg PO DAILY [facility] Last Admin: 01/20/18 09:41 Dose: 81 mg Cyclobenzaprine HCl (Flexeril) 10 mg PO Q8 PRN PRN Reason: Muscle spasm Enoxaparin Sodium (Lovenox) 30 mg SC DAILY [facility] Last Admin: 01/20/18 09:40 Dose: 30 mg Ferrous Sulfate (Feosol) 325 mg PO TID [facility] Last Admin: 01/20/18 17:44 Dose: 325 mg Gabapentin (Neurontin) 100 mg PO TID [facility] Last Admin: 01/20/18 17:44 Dose: 100 mg Ceftriaxone Sodium 1 gm/ (Sodium Chloride) 100 mls @ 100 mls/hr IVPB Q24H [facility] PRN Reason: Protocol Last Admin: 01/20/18 15:00 Dose: 100 mls/hr Ibuprofen (Motrin Tab) 600 mg PO Q6 PRN PRN Reason: Pain, moderate (4-7) Last Admin: 01/21/18 05:35 Dose: 600 mg Insulin Aspart (Novolog) 0 unit SC ACHS [facility] PRN Reason: Protocol Last Admin: 01/21/18 08:00 Dose: 3 units Insulin Glargine (Lantus) 24 unit SC [facility] Last Admin: 01/20/18 21:35 Dose: 24 units Metformin HCl (Glucophage) 1,000 mg PO BID [facility] Last Admin: 01/20/18 17:44 Dose: 1,000 mg Metoprolol Succinate (Toprol Xl) 25 mg PO DAILY [facility] Last Admin: 01/20/18 09:41 Dose: 25 mg Pantoprazole Sodium (Protonix Ec Tab) 40 mg PO DAILY [facility] Last Admin: 01/20/18 09:40 Dose: 40 mg Rosuvastatin Calcium (Crestor) 5 mg PO HS [facility] Last Admin: 01/20/18 21:35 Dose: 5 mg Fluticasone/Salmeterol (Advair Diskus 500/50) 1 puff INH RQ12 [facility] Last Admin: 01/21/18 08:11 Dose: 1 puff - Labs Labs: 01/20/18 10:53 01/20/18 10:53 - Constitutional Appears: Well, Non-toxic, No Acute Distress - Head Exam Head Exam: ATRAUMATIC, NORMOCEPHALIC - Extremities Exam Additional comments: Vasc: DP nonpalable, PT 1/4 bilaterally, temperature gradient WNL, CFT delayed to digits, no edema noted Ortho: mild tenderness at site of ulceration, MMT 5/5 to all compartments Neuro: gross sensation intact, protective sensation diminished Derm: Circular ulceration noted to the lateral aspect of 5th metatarsal base measuring approximately .5 cm in diameter. No drainage, no erythema, no abscess or fluctanance noted, no streaking, no malodor, no tunneling. Ulceration probes deep. - Neurological Exam Neurological Exam: Alert, Awake, Oriented x3 - Psychiatric Exam Psychiatric exam: Normal Affect, Normal Mood Assessment and Plan - Assessment and Plan (Free Text) Assessment: 52yo female seen and evaluated for right foot ulceration Plan: Patient seen and evaluated at bedside with Dr. Marietta Cruz, labs, chart reviewed; afebrile and absent leukocytosis (01/21) X-rays right foot; no evidence of OM Right foot Wound culture; pending SUSY's of bilateral lower extremity; ordered Continue IV abx per ID reccs Plan to order MRI of right lower extremity to rule out OM Cleansed ulceration with saline solution, dressed with betadine dsd and kerlix Will continue to follow patient while in house
[2018-01-21] MEDS: Pantoprazole 40 mg EC Tab PO SCH (11:17)
[2018-01-21] MEDS: Metoprolol Succinate 25 mg XL Tab PO SCH (11:17)
[2018-01-21] MEDS: Enoxaparin 30 mg Syringe SC SCH (11:18)
--- NOTE | 2018-01-21 15:54 | CP.PCM.HP ---
History of Present Illness - History of Present Illness History of Present Illness: CC non-healing right foot ulceration HPI 52y/o Female from [facility] with PMH DM, COPD, and HTN was seen and evaluated at bedside regarding right foot ulceration. Patient reports that last Tuesday , the wound appeared out of nowhere. Denies of any trauma or incident. Reports there was blue skin discoloration to the site in the beginning. Pt endorses wound appears to be getting bigger. Patient was seen by Dr Mcmanus(weight checker) and was advised admission. Denies noticing any drainage or odor. Pt claimed chills for the past 2 weeks. Patient also complains of headache at bedside. Denies nausea, shortness of breath, chest pains or fever. Present on Admission - Present on Admission Any Indicators Present on Admission: Yes History of Uncontrolled Diabetes: Yes Review of Systems - Constitutional Constitutional: Chills, Malaise, Weakness - EENT Ears: absent: Ear Discharge - Cardiovascular Cardiovascular: Dyspnea on Exertion - Respiratory Respiratory: Dyspnea - Gastrointestinal Gastrointestinal: absent: Nausea - Musculoskeletal Musculoskeletal: Numbness, Tingling - Neurological Neurological: Burning Sensations, Headaches, Tingling Past Patient History - Infectious Disease Hx of Infectious Diseases: None - Past Medical History & Family History Past Medical History?: Yes - Past Social History Smoking Status: Never Smoked - CARDIAC Hx Cardiac Disorders: Yes Hx Hypercholesterolemia: Yes Hx Hypertension: Yes - PULMONARY Hx Chronic Obstructive Pulmonary Disease (COPD): Yes - NEUROLOGICAL Hx Neurological Disorder: No Hx Syncope: Yes - HEENT Hx HEENT Problems: No - RENAL Hx Chronic Kidney Disease: No - ENDOCRINE/METABOLIC Hx Diabetes Mellitus Type 1: Yes - HEMATOLOGICAL/ONCOLOGICAL Hx Anemia: Yes - INTEGUMENTARY Hx Dermatological Problems: No - MUSCULOSKELETAL/RHEUMATOLOGICAL Hx Arthritis: Yes (KNEE; BACK) - GASTROINTESTINAL Hx Gastrointestinal Disorders: Yes Hx Gastroesophageal Reflux: Yes - GENITOURINARY/GYNECOLOGICAL Hx Genitourinary Disorders: No - PSYCHIATRIC Hx Substance Use: No - SURGICAL HISTORY Hx Coronary Artery Bypass Graft: Yes (09/19) - ANESTHESIA Hx Anesthesia: Yes Hx Anesthesia Reactions: No Hx Malignant Hyperthermia: No Meds Allergies/Adverse Reactions: Allergies Allergy/AdvReac Type Severity Reaction Status Date / Time No Known Allergies Allergy Verified 05/20/17 09:51 Physical Exam - Constitutional Appears: Non-toxic - Head Exam Head Exam: NORMAL INSPECTION - Eye Exam Eye Exam: absent: Scleral icterus - ENT Exam ENT Exam: Mucous Membranes Moist - Neck Exam Neck exam: Positive for: Full Rom - Respiratory Exam Respiratory Exam: absent: Decreased Breath Sounds - Cardiovascular Exam Cardiovascular Exam: REGULAR RHYTHM - GI/Abdominal Exam GI & Abdominal Exam: Soft - Extremities Exam Extremities exam: Negative for: pedal edema Additional comments: +ulceration, dry in rt foot Results - Vital Signs Recent Vital Signs: Last Vital Signs Temp 98.1 F 01/21/18 08:09 Pulse 82 01/21/18 08:09 Resp 20 01/21/18 08:09 BP 156/82 H 01/21/18 08:09 Pulse Ox 97 01/21/18 08:09 - Labs Result Diagrams: 01/20/18 10:53 01/20/18 10:53 Labs: Laboratory Results - last 24 hr 01/20/18 16:21 POC Glucose (mg/dL) 179 H Assessment & Plan - Assessment and Plan (Free Text) Assessment: Diabetic foot-r/o OM CAD PVD CKD stage 3 T2dm Plan: ID consult Podiatry consult Vascular work-up Renal consult - Date & Time Date: 01/20/18 Time: 08:00
--- NOTE | 2018-01-21 16:27 | CP.PCM.PN ---
Subjective - Date & Time of Evaluation Date of Evaluation: 01/21/18 Time of Evaluation: 10:00 - Subjective Subjective: still with chills Arterial duplex scan of LE(unofficial)- +stenosis bilaterally fem pop Objective - Vital Signs/Intake and Output Vital Signs (last 24 hours): Temp Pulse Resp BP Pulse Ox 98.3 F 88 20 144/75 97 01/21/18 16:00 01/21/18 16:00 01/21/18 16:00 01/21/18 16:00 01/21/18 16:00 Intake and Output: 01/21/18 01/21/18 06:59 18:59 Intake Total 540 700 Balance 540 700 - Medications Medications: Current Medications Acetaminophen/Butalbital/Caffeine (Fioricet) 1 tab PO Q6 PRN PRN Reason: Headache Last Admin: 01/20/18 21:35 Dose: 1 tab Albuterol/Ipratropium (Duoneb 3 Mg/0.5 Mg (3 Ml) Ud) 3 ml INH RQ6 [facility] Last Admin: 01/21/18 13:17 Dose: Not Given Aspirin (Ecotrin) 81 mg PO DAILY [facility] Last Admin: 01/21/18 11:17 Dose: 81 mg Cyclobenzaprine HCl (Flexeril) 10 mg PO Q8 PRN PRN Reason: Muscle spasm Last Admin: 01/21/18 11:17 Dose: 10 mg Enoxaparin Sodium (Lovenox) 30 mg SC DAILY [facility] Last Admin: 01/21/18 11:18 Dose: 30 mg Ferrous Sulfate (Feosol) 325 mg PO TID [facility] Last Admin: 01/21/18 13:30 Dose: 325 mg Gabapentin (Neurontin) 100 mg PO TID [facility] Last Admin: 01/21/18 13:30 Dose: 100 mg Ceftriaxone Sodium 1 gm/ (Sodium Chloride) 100 mls @ 100 mls/hr IVPB Q24H [facility] PRN Reason: Protocol Last Admin: 01/21/18 13:31 Dose: 100 mls/hr Ibuprofen (Motrin Tab) 600 mg PO Q6 PRN PRN Reason: Pain, moderate (4-7) Last Admin: 01/21/18 05:35 Dose: 600 mg Insulin Aspart (Novolog) 0 unit SC ACHS [facility] PRN Reason: Protocol Last Admin: 01/21/18 13:01 Dose: 4 units Insulin Glargine (Lantus) 24 unit SC [facility] Last Admin: 01/20/18 21:35 Dose: 24 units Metformin HCl (Glucophage) 1,000 mg PO BID [facility] Last Admin: 01/21/18 11:17 Dose: 1,000 mg Metoprolol Succinate (Toprol Xl) 25 mg PO DAILY [facility] Last Admin: 01/21/18 11:17 Dose: 25 mg Pantoprazole Sodium (Protonix Ec Tab) 40 mg PO DAILY [facility] Last Admin: 01/21/18 11:17 Dose: 40 mg Rosuvastatin Calcium (Crestor) 5 mg PO HS [facility] Last Admin: 01/20/18 21:35 Dose: 5 mg Fluticasone/Salmeterol (Advair Diskus 500/50) 1 puff INH RQ12 [facility] Last Admin: 01/21/18 08:11 Dose: 1 puff - Labs Labs: 01/20/18 10:53 01/20/18 10:53 - Constitutional Appears: Non-toxic - Head Exam Head Exam: NORMAL INSPECTION - Eye Exam Eye Exam: absent: Scleral icterus - ENT Exam ENT Exam: Mucous Membranes Moist - Neck Exam Neck Exam: Full ROM - Respiratory Exam Respiratory Exam: Decreased Breath Sounds - Cardiovascular Exam Cardiovascular Exam: REGULAR RHYTHM - GI/Abdominal Exam GI & Abdominal Exam: Soft - Extremities Exam Extremities Exam: absent: Pedal Edema - Neurological Exam Neurological Exam: Alert, Oriented x3 Assessment and Plan - Assessment and Plan (Free Text) Assessment: PVD Diabetic ulcer- r/o OM CAD CKD Plan: Peripheral consult with Dr Mcgowan Renal consult w/ Dr Man Cont Abtx
--- NOTE | 2018-01-21 20:29 | CP.PCM.CON ---
History of Present Illness - History of Present Illness History of Present Illness: pt is seen and examined, full consult is dictated #[id number] Past Patient History - Infectious Disease Hx of Infectious Diseases: None - Past Medical History & Family History Past Medical History?: Yes - Past Social History Smoking Status: Never Smoked - CARDIAC Hx Cardiac Disorders: Yes Hx Hypercholesterolemia: Yes Hx Hypertension: Yes - PULMONARY Hx Chronic Obstructive Pulmonary Disease (COPD): Yes - NEUROLOGICAL Hx Neurological Disorder: No Hx Syncope: Yes - HEENT Hx HEENT Problems: No - RENAL Hx Chronic Kidney Disease: No - ENDOCRINE/METABOLIC Hx Diabetes Mellitus Type 1: Yes - HEMATOLOGICAL/ONCOLOGICAL Hx Anemia: Yes - INTEGUMENTARY Hx Dermatological Problems: No - MUSCULOSKELETAL/RHEUMATOLOGICAL Hx Arthritis: Yes (KNEE; BACK) - GASTROINTESTINAL Hx Gastrointestinal Disorders: Yes Hx Gastroesophageal Reflux: Yes - GENITOURINARY/GYNECOLOGICAL Hx Genitourinary Disorders: No - PSYCHIATRIC Hx Substance Use: No - SURGICAL HISTORY Hx Coronary Artery Bypass Graft: Yes (09/19) - ANESTHESIA Hx Anesthesia: Yes Hx Anesthesia Reactions: No Hx Malignant Hyperthermia: No Meds Allergies/Adverse Reactions: Allergies Allergy/AdvReac Type Severity Reaction Status Date / Time No Known Allergies Allergy Verified 05/20/17 09:51 - Medications Medications: Current Medications Acetaminophen/Butalbital/Caffeine (Fioricet) 1 tab PO Q6 PRN PRN Reason: Headache Last Admin: 01/20/18 21:35 Dose: 1 tab Albuterol/Ipratropium (Duoneb 3 Mg/0.5 Mg (3 Ml) Ud) 3 ml INH RQ6 [facility] Last Admin: 01/21/18 13:17 Dose: Not Given Aspirin (Ecotrin) 81 mg PO DAILY [facility] Last Admin: 01/21/18 11:17 Dose: 81 mg Cyclobenzaprine HCl (Flexeril) 10 mg PO Q8 PRN PRN Reason: Muscle spasm Last Admin: 01/21/18 11:17 Dose: 10 mg Enoxaparin Sodium (Lovenox) 30 mg SC DAILY [facility] Last Admin: 01/21/18 11:18 Dose: 30 mg Ferrous Sulfate (Feosol) 325 mg PO TID [facility] Last Admin: 01/21/18 18:01 Dose: 325 mg Gabapentin (Neurontin) 100 mg PO TID [facility] Last Admin: 01/21/18 18:02 Dose: 100 mg Ceftriaxone Sodium 1 gm/ (Sodium Chloride) 100 mls @ 100 mls/hr IVPB Q24H [facility] PRN Reason: Protocol Last Admin: 01/21/18 13:31 Dose: 100 mls/hr Ibuprofen (Motrin Tab) 600 mg PO Q6 PRN PRN Reason: Pain, moderate (4-7) Last Admin: 01/21/18 05:35 Dose: 600 mg Insulin Aspart (Novolog) 0 unit SC ACHS [facility] PRN Reason: Protocol Last Admin: 01/21/18 17:59 Dose: 2 units Insulin Glargine (Lantus) 24 unit SC HS [facility] Last Admin: 01/20/18 21:35 Dose: 24 units Metformin HCl (Glucophage) 1,000 mg PO BID [facility] Last Admin: 01/21/18 18:02 Dose: 1,000 mg Metoprolol Succinate (Toprol Xl) 25 mg PO DAILY [facility] Last Admin: 01/21/18 11:17 Dose: 25 mg Pantoprazole Sodium (Protonix Ec Tab) 40 mg PO DAILY [facility] Last Admin: 01/21/18 11:17 Dose: 40 mg Rosuvastatin Calcium (Crestor) 5 mg PO HS [facility] Last Admin: 01/20/18 21:35 Dose: 5 mg Fluticasone/Salmeterol (Advair Diskus 500/50) 1 puff INH RQ12 [facility] Last Admin: 01/21/18 08:11 Dose: 1 puff Results - Vital Signs Recent Vital Signs: Last Vital Signs Temp 98.3 F 01/21/18 16:00 Pulse 88 01/21/18 16:00 Resp 20 01/21/18 16:00 BP 144/75 01/21/18 16:00 Pulse Ox 97 01/21/18 16:00 - Labs Result Diagrams: 01/20/18 10:53 01/20/18 10:53
--- NOTE | 2018-01-21 22:05 | CP.PCM.CON ---
History of Present Illness - History of Present Illness History of Present Illness: CC non-healing right foot ulceration HPI 52y/o Female from [facility] with PMH DM, COPD, and HTN was seen and evaluated at bedside regarding right foot ulceration. Patient reports that last Tuesday , the wound appeared out of nowhere. Denies of any trauma or incident. Reports there was blue skin discoloration to the site in the beginning. Pt endorses wound appears to be getting bigger. Patient was seen by Dr Mcmanus(nurse quality) and was advised admission. Denies noticing any drainage or odor. Pt claimed chills for the past 2 weeks. Patient also complains of headache at bedside. Denies nausea, shortness of breath, chest pains or fever. Present on Admission - Present on Admission Any Indicators Present on Admission: Yes History of Uncontrolled Diabetes: Yes Review of Systems - Constitutional Constitutional: Chills, Malaise, Weakness - EENT Ears: absent: Ear Discharge - Cardiovascular Cardiovascular: Dyspnea on Exertion - Respiratory Respiratory: Dyspnea - Gastrointestinal Gastrointestinal: absent: Nausea - Musculoskeletal Musculoskeletal: Numbness, Tingling - Neurological Neurological: Burning Sensations, Headaches, Tingling Physical Exam - Constitutional Appears: Non-toxic - Head Exam Head Exam: NORMAL INSPECTION - Eye Exam Eye Exam: absent: Scleral icterus - ENT Exam ENT Exam: Mucous Membranes Moist - Neck Exam Neck exam: Positive for: Full Rom - Respiratory Exam Respiratory Exam: absent: Decreased Breath Sounds - Cardiovascular Exam Cardiovascular Exam: REGULAR RHYTHM - GI/Abdominal Exam GI & Abdominal Exam: Soft - Extremities Exam Extremities exam: Negative for: pedal edema Additional comments: +ulceration, dry in rt foot Past Patient History - Infectious Disease Hx of Infectious Diseases: None - Past Medical History & Family History Past Medical History?: Yes - Past Social History Smoking Status: Never Smoked - CARDIAC Hx Cardiac Disorders: Yes Hx Hypercholesterolemia: Yes Hx Hypertension: Yes - PULMONARY Hx Chronic Obstructive Pulmonary Disease (COPD): Yes - NEUROLOGICAL Hx Neurological Disorder: No Hx Syncope: Yes - HEENT Hx HEENT Problems: No - RENAL Hx Chronic Kidney Disease: No - ENDOCRINE/METABOLIC Hx Diabetes Mellitus Type 1: Yes - HEMATOLOGICAL/ONCOLOGICAL Hx Anemia: Yes - INTEGUMENTARY Hx Dermatological Problems: No - MUSCULOSKELETAL/RHEUMATOLOGICAL Hx Arthritis: Yes (KNEE; BACK) - GASTROINTESTINAL Hx Gastrointestinal Disorders: Yes Hx Gastroesophageal Reflux: Yes - GENITOURINARY/GYNECOLOGICAL Hx Genitourinary Disorders: No - PSYCHIATRIC Hx Substance Use: No - SURGICAL HISTORY Hx Coronary Artery Bypass Graft: Yes (09/19) - ANESTHESIA Hx Anesthesia: Yes Hx Anesthesia Reactions: No Hx Malignant Hyperthermia: No Meds Allergies/Adverse Reactions: Allergies Allergy/AdvReac Type Severity Reaction Status Date / Time No Known Allergies Allergy Verified 05/20/17 09:51 - Medications Medications: Current Medications Acetaminophen/Butalbital/Caffeine (Fioricet) 1 tab PO Q6 PRN PRN Reason: Headache Last Admin: 01/20/18 21:35 Dose: 1 tab Albuterol/Ipratropium (Duoneb 3 Mg/0.5 Mg (3 Ml) Ud) 3 ml INH RQ6 [facility] Last Admin: 01/21/18 20:38 Dose: 3 ml Aspirin (Ecotrin) 81 mg PO DAILY [facility] Last Admin: 01/21/18 11:17 Dose: 81 mg Cyclobenzaprine HCl (Flexeril) 10 mg PO Q8 PRN PRN Reason: Muscle spasm Last Admin: 01/21/18 11:17 Dose: 10 mg Enoxaparin Sodium (Lovenox) 30 mg SC DAILY [facility] Last Admin: 01/21/18 11:18 Dose: 30 mg Ferrous Sulfate (Feosol) 325 mg PO TID [facility] Last Admin: 01/21/18 18:01 Dose: 325 mg Gabapentin (Neurontin) 100 mg PO TID [facility] Last Admin: 01/21/18 18:02 Dose: 100 mg Ceftriaxone Sodium 1 gm/ (Sodium Chloride) 100 mls @ 100 mls/hr IVPB Q24H [facility] PRN Reason: Protocol Last Admin: 01/21/18 13:31 Dose: 100 mls/hr Ibuprofen (Motrin Tab) 600 mg PO Q6 PRN PRN Reason: Pain, moderate (4-7) Last Admin: 01/21/18 05:35 Dose: 600 mg Insulin Aspart (Novolog) 0 unit SC ACHS [facility] PRN Reason: Protocol Last Admin: 01/21/18 17:59 Dose: 2 units Insulin Glargine (Lantus) 24 unit SC HS [facility] Last Admin: 01/20/18 21:35 Dose: 24 units Metformin HCl (Glucophage) 1,000 mg PO BID [facility] Last Admin: 01/21/18 18:02 Dose: 1,000 mg Metoprolol Succinate (Toprol Xl) 25 mg PO DAILY [facility] Last Admin: 01/21/18 11:17 Dose: 25 mg Pantoprazole Sodium (Protonix Ec Tab) 40 mg PO DAILY [facility] Last Admin: 01/21/18 11:17 Dose: 40 mg Rosuvastatin Calcium (Crestor) 5 mg PO HS [facility] Last Admin: 01/20/18 21:35 Dose: 5 mg Fluticasone/Salmeterol (Advair Diskus 500/50) 1 puff INH RQ12 [facility] Last Admin: 01/21/18 20:39 Dose: 1 puff Results - Vital Signs Recent Vital Signs: Last Vital Signs Temp 98.3 F 01/21/18 16:00 Pulse 88 01/21/18 16:00 Resp 20 01/21/18 16:00 BP 144/75 01/21/18 16:00 Pulse Ox 97 01/21/18 16:00 - Labs Result Diagrams: 01/20/18 10:53 01/20/18 10:53 Assessment & Plan - Assessment and Plan (Free Text) Assessment: Diabetic foot-r/o OM CAD PVD CKD stage 3 T2dm
[2018-01-21] MEDS: (Lantus) Insulin Glargine, Recombinant SC SCH (23:22)
[2018-01-22] MEDS: Albuterol-Ipratrop 3 mg / 0.5 (3 ml) UD INH SCH ×4 (01:37→20:23)
--- NOTE | 2018-01-22 08:14 | CON ---
Copied To: Vasiliy Emery MD Attending MD: Vasiliy Emery MD DATE: 01/21/2018 LOCATION: The patient is located in room 352, bed B. REQUESTED BY: Carlos Haddad MD REASON FOR CONSULTATION: Chronic kidney disease, proteinuria, for further evaluation and left foot infection. HISTORY OF PRESENT ILLNESS: Mrs. Orozco is a 52-year-old middle-aged female with a past medical history significant for diabetes for 15 years, hypertension for 15 years, coronary artery disease, status post CABG about 2 years ago, and hysterectomy about 2 years ago for fibroids, hyperlipidemia, chronic kidney disease, proteinuria who was admitted to [facility] on 01/19/2018 with chief complaints of blister on the lateral aspect of the right foot with discoloration. The patient was admitted for right foot infection and cellulitis. The patient is not in acute distress. Denies any headache, dizziness. Denies any chest pain or palpitation. Denies any fever or cough. No abdominal pain. No nausea, vomiting, or diarrhea. PAST MEDICAL HISTORY: Significant for longstanding hypertension, diabetes for 15 years, coronary artery disease, status post CABG, history of hyperlipidemia. PAST SURGICAL HISTORY: Hysterectomy in 01/2016, and also CABG in 2016. ALLERGIES: NO KNOWN DRUG ALLERGIES. SOCIAL HISTORY: No smoking. No alcohol. No drugs. PERSONAL HISTORY: She is single and . She has three children. FAMILY HISTORY: Father and mother are alive. Father is 73 years old, suffering with diabetes, coronary artery disease, and CABG. Mother is 67 years old, status post CABG and has hypertension. She also has four sisters who are healthy and three children who are healthy. CURRENT MEDICATIONS: Include as follows: Advair 550 combination one puff every 12 hours, Rocephin 1 g every 24 hours, Crestor 5 mg at bedtime, DuoNeb inhaler, aspirin 81 mg daily, ferrous sulfate 325 mg p.o. t.i.d., Fioricet 1 tablet p.o. every 6 hours p.r.n., Flexeril 10 mg p.o. every 8 hours, p.r.n. metformin 1000 mg p.o. b.i.d., Lovenox 30 mg subcu daily, Neurontin 100 mg p.o. t.i.d., ibuprofen 600 mg p.o. every 6 hours p.r.n., NovoLog for sliding scale, Protonix 40 mg p.o. daily, and metoprolol 25 mg p.o. daily. REVIEW OF SYSTEMS: Significant for right foot blister on the lateral aspect, and also discoloration and pain in both thighs. All other review of systems are reviewed and negative. PHYSICAL EXAMINATION: VITAL SIGNS: As follows: Blood pressure 144/75, pulse 88, respirations 20, temperature 98.3, saturations 97%. Height 5 feet 5 inches, and weight is 128 pounds. GENERAL: Mrs. Orozco is a 52-year-old middle-aged female, moderately built, moderately nourished, not in acute distress. HEENT: Pupils normal and reactive to light and accommodation. Conjunctivae pink. Sclerae are anicteric. Tongue is moist. NECK: Trachea is midline. LUNGS: Symmetric on both sides. Bilateral breath sounds present. Clear to auscultation. CVS: Pyatt at the fifth intercostal space, midclavicular line. S1, S2 audible. No murmur or gallop. The patient also has a midsternal scar present from the previous CABG. ABDOMEN: Normal in appearance, soft, tympanic. No guarding. No rigidity. No hepatosplenomegaly. ICT PROGRAMMER: The patient is alert, awake, and oriented x3. Nonfocal neuro examination. Cranial nerves II through XII grossly intact. Sensory and motor system are within normal limits. EXTREMITIES: No cyanosis, no clubbing, no edema. The patient has a dressing to the right foot. LABORATORY DATA: Include as follows: As of 01/19/2018, WBC 9.8, hemoglobin 9.8, hematocrit is 28.6, MCV 73.7, platelets 358. Sodium 140, potassium 4.7, chloride 108, CO2 25, BUN 28, creatinine 2.5, glucose is 288, calcium 8.7, and total bilirubin 0.1. AST 14, ALT 22, alkaline phosphatase 80, total protein 6, albumin is 2.9, and beta-hydroxybutyrate is 0.05. As of 01/20/2018, WBC 9.5, hemoglobin 9.1, hematocrit is 28.2, platelets 324, MCV 75. Sodium 140, potassium 4.7, chloride 109, CO 22, BUN 25, creatinine 2.1, glucose 234, calcium 8.5, phosphorus 4.3, magnesium 1.7. Total bilirubin 0.4, AST 11, ALT 12, alkaline phosphatase 68, total protein 5.6, albumin is 2.5. Chest x-ray as of 01/19/2018, no active pulmonary disease. CT of the head as of 01/20/2018 at 09:30 a.m., no evidence of acute intracranial hemorrhage or intracranial collection, mass effect, and a midline shift. X-ray of the foot as of 01/20/2018, no radiographic evidence of bony erosion to suggest osteomyelitis, mild irregularity, and soft tissue swelling in the lateral soft tissue of the midfoot may represent cellulitis and ulceration. Ultrasound of the lower extremity Doppler, moderate arterial disease on preliminary report. Review of the labs from the previous visits include as follows: Immunology: Serum protein electrophoresis. No M spike. As of 03/12/2016, complement level C3 is 160, C4 is 100.1, and kappa light chain 53.7, kappa lambda light chain is 40.6, and free kappa lambda ratio is 1.32. Other reports as of 03/13/2016, hepatitis B surface antigen negative, surface antibody negative. Core antibody IgM is negative and hep C antibody is negative. Urinalysis as of 05/20/2017, dark clear, pH 7, specific gravity 1.016, protein 2+, glucose 3+ and clear, blood negative, nitrites negative, bilirubin negative, urobilinogen negative, wbc's 1, rbc's 3. Urine random creatinine is 98.2 and urine random protein is 1683 mg/dL, and protein to creatinine ratio about 17. Ultrasound of the kidneys as of 01/17/2018, right kidney 10.9 cm x 4.6 cm x 5.2 cm, left kidney 10.8 cm x 5.3 cm x 5.1 cm, increased echogenicity of the bilateral renal parenchymal cortices suggestive of medical renal disease, and 1 cm lower pole right renal cyst. ASSESSMENT AND PLAN: In summary, Mrs. Orozco is a 52-year-old middle-aged female with history of longstanding hypertension, diabetes, hyperlipidemia, coronary artery disease, status post coronary artery bypass graft, who was admitted with right foot blister and also discoloration on the lateral aspect of the right mid foot with swelling. 1. Right foot infection with cellulitis and ulcer. Continue dressing and follow up with Podiatry and continue intravenous antibiotics as per Dr. Haddad. 2. Proteinuria. 3. Chronic kidney disease 3. 4. Hypertension. 5. Diabetes. 6. Coronary artery disease, status post coronary artery bypass graft. 7. Proteinuria, most likely secondary to diabetic nephropathy, doubt underlying chronic kidney disease. All the serological workup was negative in the past, except the RAISA. 8. Chronic kidney disease 3, most likely secondary to diabetic nephropathy, cannot rule out underlying hypertensive nephrosclerosis. PLAN: Check PTH intact level and also check RAISA, and check urine protein electrophoresis again, UPEP, serum immunofixation, and urine immunofixation, and also check iron TIBC, ferritin level. Also, we will add Nephrocaps 1 tablet p.o. daily, and also we will give Epogen 10,000 units subcu weekly. We will follow with you. Thank you for allowing me to participate in your patient's care. Vasiliy Emery MD
[2018-01-22] MEDS: Fluticasone-Salmeterol 500-50mcg Diskus INH SCH ×2 (08:16→20:23)
[2018-01-22] MEDS: (Novolog) Insulin Aspart, Recombinant 100 u/ml 10 ml vial SC SCH ×4 (08:38→22:17)
[2018-01-22 09:33] LABS: IRON 34 ug/dL (37-170)
[2018-01-22 09:42] LABS: % IRON SATURATION 18 (20-55); TOTAL IRON BINDING CAPACITY 187 ug/dL (250-450)
[2018-01-22 09:54] LABS: FERRITIN 18.7 ng/mL
[2018-01-22] MEDS: Metoprolol Succinate 25 mg XL Tab PO SCH (09:56)
[2018-01-22] MEDS: Pantoprazole 40 mg EC Tab PO SCH (09:56)
[2018-01-22] MEDS: Enoxaparin 30 mg Syringe SC SCH (09:57)
--- NOTE | 2018-01-22 14:56 | CP.PCM.PN ---
Subjective - Date & Time of Evaluation Date of Evaluation: 01/22/18 Time of Evaluation: 08:00 - Subjective Subjective: severe PVD vascular eval in progress cont iv rx and wound care Objective - Vital Signs/Intake and Output Vital Signs (last 24 hours): Temp Pulse Resp BP Pulse Ox 98 F 90 20 164/89 H 97 01/22/18 08:12 01/22/18 08:12 01/22/18 08:12 01/22/18 08:12 01/22/18 08:12 Intake and Output: 01/22/18 01/22/18 06:59 18:59 Intake Total 200 Balance 200 - Medications Medications: Current Medications Acetaminophen/Butalbital/Caffeine (Fioricet) 1 tab PO Q6 PRN PRN Reason: Headache Last Admin: 01/20/18 21:35 Dose: 1 tab Albuterol/Ipratropium (Duoneb 3 Mg/0.5 Mg (3 Ml) Ud) 3 ml INH RQ6 [facility] Last Admin: 01/22/18 13:42 Dose: 3 ml Aspirin (Ecotrin) 81 mg PO DAILY [facility] Last Admin: 01/21/18 11:17 Dose: 81 mg Cyclobenzaprine HCl (Flexeril) 10 mg PO Q8 PRN PRN Reason: Muscle spasm Last Admin: 01/21/18 11:17 Dose: 10 mg Enoxaparin Sodium (Lovenox) 30 mg SC DAILY [facility] Last Admin: 01/22/18 09:57 Dose: 30 mg Ferrous Sulfate (Feosol) 325 mg PO TID [facility] Last Admin: 01/22/18 14:27 Dose: 325 mg Gabapentin (Neurontin) 100 mg PO TID [facility] Last Admin: 01/22/18 14:27 Dose: 100 mg Ceftriaxone Sodium 1 gm/ (Sodium Chloride) 100 mls @ 100 mls/hr IVPB Q24H [facility] PRN Reason: Protocol Last Admin: 01/22/18 14:27 Dose: 100 mls/hr Ibuprofen (Motrin Tab) 600 mg PO Q6 PRN PRN Reason: Pain, moderate (4-7) Last Admin: 01/21/18 05:35 Dose: 600 mg Insulin Aspart (Novolog) 0 unit SC ACHS [facility] PRN Reason: Protocol Last Admin: 01/22/18 12:26 Dose: 3 units Insulin Glargine (Lantus) 24 unit SC HS [facility] Last Admin: 01/21/18 23:22 Dose: 24 units Metformin HCl (Glucophage) 1,000 mg PO BID [facility] Last Admin: 01/22/18 09:56 Dose: 1,000 mg Metoprolol Succinate (Toprol Xl) 25 mg PO DAILY [facility] Last Admin: 01/22/18 09:56 Dose: 25 mg Pantoprazole Sodium (Protonix Ec Tab) 40 mg PO DAILY [facility] Last Admin: 01/22/18 09:56 Dose: 40 mg Rosuvastatin Calcium (Crestor) 5 mg PO HS [facility] Last Admin: 01/21/18 23:22 Dose: 5 mg Fluticasone/Salmeterol (Advair Diskus 500/50) 1 puff INH RQ12 [facility] Last Admin: 01/22/18 08:16 Dose: 1 puff - Labs Labs: 01/20/18 10:53 01/20/18 10:53 - Constitutional Appears: Non-toxic, Chronically Ill - Head Exam Head Exam: NORMOCEPHALIC - Eye Exam Eye Exam: PERRL - ENT Exam ENT Exam: Mucous Membranes Dry - Neck Exam Neck Exam: absent: Lymphadenopathy - Respiratory Exam Respiratory Exam: Decreased Breath Sounds - Cardiovascular Exam Cardiovascular Exam: REGULAR RHYTHM - GI/Abdominal Exam GI & Abdominal Exam: Distended - Rectal Exam Rectal Exam: Deferred - Exam Exam: NORMAL INSPECTION - Extremities Exam Extremities Exam: absent: Pedal Edema - Back Exam Back Exam: absent: CVA tenderness (L), CVA tenderness (R) - Neurological Exam Neurological Exam: Alert, Awake, Oriented x3 - Psychiatric Exam Psychiatric exam: Normal Mood - Skin Skin Exam: Dry Assessment and Plan (1) Diabetic complication Status: Acute (2) Non-healing ulcer of foot Status: Acute (3) Renal insufficiency Status: Acute - Assessment and Plan (Free Text) Assessment: cont rx
--- NOTE | 2018-01-22 15:09 | CP.PCM.PN ---
Subjective - Date & Time of Evaluation Date of Evaluation: 01/22/18 Time of Evaluation: 15:06 - Subjective Subjective: Podiatry Progress Note for Dr. Mcmanus 52 yo female seen and evaluated at bedside for right foot ulceration. Patient is resting comfortably and in NAD. She states that she feels her foot is starting to swell. Patient denies any pain to her right foot. Denies any new pedal complaints. Denies N/V/F/SOB/CP. Objective - Vital Signs/Intake and Output Vital Signs (last 24 hours): Temp Pulse Resp BP Pulse Ox 98 F 90 20 164/89 H 97 01/22/18 08:12 01/22/18 08:12 01/22/18 08:12 01/22/18 08:12 01/22/18 08:12 Intake and Output: 01/22/18 01/22/18 06:59 18:59 Intake Total 550 Balance 550 - Medications Medications: Current Medications Acetaminophen/Butalbital/Caffeine (Fioricet) 1 tab PO Q6 PRN PRN Reason: Headache Last Admin: 01/20/18 21:35 Dose: 1 tab Albuterol/Ipratropium (Duoneb 3 Mg/0.5 Mg (3 Ml) Ud) 3 ml INH RQ6 [facility] Last Admin: 01/22/18 13:42 Dose: 3 ml Aspirin (Ecotrin) 81 mg PO DAILY [facility] Last Admin: 01/21/18 11:17 Dose: 81 mg Cyclobenzaprine HCl (Flexeril) 10 mg PO Q8 PRN PRN Reason: Muscle spasm Last Admin: 01/21/18 11:17 Dose: 10 mg Enoxaparin Sodium (Lovenox) 30 mg SC DAILY [facility] Last Admin: 01/22/18 09:57 Dose: 30 mg Ferrous Sulfate (Feosol) 325 mg PO TID [facility] Last Admin: 01/22/18 14:27 Dose: 325 mg Gabapentin (Neurontin) 100 mg PO TID [facility] Last Admin: 01/22/18 14:27 Dose: 100 mg Ceftriaxone Sodium 1 gm/ (Sodium Chloride) 100 mls @ 100 mls/hr IVPB Q24H [facility] PRN Reason: Protocol Last Admin: 01/22/18 14:27 Dose: 100 mls/hr Ibuprofen (Motrin Tab) 600 mg PO Q6 PRN PRN Reason: Pain, moderate (4-7) Last Admin: 01/21/18 05:35 Dose: 600 mg Insulin Aspart (Novolog) 0 unit SC [facility] PRN Reason: Protocol Last Admin: 01/22/18 12:26 Dose: 3 units Insulin Glargine (Lantus) 24 unit SC [facility] Last Admin: 01/21/18 23:22 Dose: 24 units Metformin HCl (Glucophage) 1,000 mg PO BID [facility] Last Admin: 01/22/18 09:56 Dose: 1,000 mg Metoprolol Succinate (Toprol Xl) 25 mg PO DAILY [facility] Last Admin: 01/22/18 09:56 Dose: 25 mg Pantoprazole Sodium (Protonix Ec Tab) 40 mg PO DAILY [facility] Last Admin: 01/22/18 09:56 Dose: 40 mg Rosuvastatin Calcium (Crestor) 5 mg PO HS [facility] Last Admin: 01/21/18 23:22 Dose: 5 mg Fluticasone/Salmeterol (Advair Diskus 500/50) 1 puff INH RQ12 [facility] Last Admin: 01/22/18 08:16 Dose: 1 puff - Labs Labs: 01/20/18 10:53 01/20/18 10:53 - Constitutional Appears: Well, Non-toxic, No Acute Distress - Head Exam Head Exam: ATRAUMATIC, NORMOCEPHALIC - Extremities Exam Additional comments: Vasc: DP nonpalable, PT 1/4 bilaterally, temperature gradient WNL, CFT delayed to digits, mild edema to site of ulceration on right Ortho: mild tenderness at site of ulceration Neuro: gross sensation intact, protective sensation diminished Derm: Circular ulceration noted to the lateral aspect of 5th metatarsal base measuring approximately .8 cm in diameter. No drainage, no erythema, no abscess or fluctuance noted, no streaking, no malodor, no tunneling. Ulceration probes deep but not to bone. - Neurological Exam Neurological Exam: Alert, Awake, Oriented x3 - Psychiatric Exam Psychiatric exam: Normal Affect, Normal Mood Assessment and Plan - Assessment and Plan (Free Text) Assessment: 52yo female seen and evaluated for right foot ulceration Plan: Patient seen and evaluated at bedside with Dr. Marietta Cruz, labs, chart reviewed; afebrile and absent leukocytosis (01/21) X-rays right foot; no evidence of OM Right foot Wound culture; pending SUSY's of bilateral lower extremity; ordered Continue IV abx per ID reccs Plan to order MRI of right lower extremity to rule out OM Cleansed ulceration with saline solution, dressed with betadine dsfabi and sydnie Will continue to follow patient while in house
[2018-01-22] MEDS: Apap-Butalbital-Caffeine 325-50-40mg Tab PO PRN ×2 (15:31→22:23)
--- NOTE | 2018-01-22 16:12 | CP.PCM.PN ---
Subjective - Date & Time of Evaluation Date of Evaluation: 01/22/18 Time of Evaluation: 16:12 - Subjective Subjective: pt is seen and examined, follow up consult is dictated #[id number] start ivf and mucomyst Objective - Vital Signs/Intake and Output Vital Signs (last 24 hours): Temp Pulse Resp BP Pulse Ox 98 F 90 20 164/89 H 97 01/22/18 08:12 01/22/18 08:12 01/22/18 08:12 01/22/18 08:12 01/22/18 08:12 Intake and Output: 01/22/18 01/22/18 06:59 18:59 Intake Total 550 Balance 550 - Medications Medications: Current Medications Acetaminophen/Butalbital/Caffeine (Fioricet) 1 tab PO Q6 PRN PRN Reason: Headache Last Admin: 01/22/18 15:31 Dose: 1 tab Albuterol/Ipratropium (Duoneb 3 Mg/0.5 Mg (3 Ml) Ud) 3 ml INH RQ6 [facility] Last Admin: 01/22/18 13:42 Dose: 3 ml Aspirin (Ecotrin) 81 mg PO DAILY [facility] Last Admin: 01/21/18 11:17 Dose: 81 mg Cyclobenzaprine HCl (Flexeril) 10 mg PO Q8 PRN PRN Reason: Muscle spasm Last Admin: 01/21/18 11:17 Dose: 10 mg Enoxaparin Sodium (Lovenox) 30 mg SC DAILY [facility] Last Admin: 01/22/18 09:57 Dose: 30 mg Ferrous Sulfate (Feosol) 325 mg PO TID [facility] Last Admin: 01/22/18 14:27 Dose: 325 mg Gabapentin (Neurontin) 100 mg PO TID [facility] Last Admin: 01/22/18 14:27 Dose: 100 mg Ceftriaxone Sodium 1 gm/ (Sodium Chloride) 100 mls @ 100 mls/hr IVPB Q24H [facility] PRN Reason: Protocol Last Admin: 01/22/18 14:27 Dose: 100 mls/hr Ibuprofen (Motrin Tab) 600 mg PO Q6 PRN PRN Reason: Pain, moderate (4-7) Last Admin: 01/21/18 05:35 Dose: 600 mg Insulin Aspart (Novolog) 0 unit SC ACHS [facility] PRN Reason: Protocol Last Admin: 01/22/18 12:26 Dose: 3 units Insulin Glargine (Lantus) 24 unit SC HS [facility] Last Admin: 01/21/18 23:22 Dose: 24 units Metformin HCl (Glucophage) 1,000 mg PO BID [facility] Last Admin: 01/22/18 09:56 Dose: 1,000 mg Metoprolol Succinate (Toprol Xl) 25 mg PO DAILY [facility] Last Admin: 01/22/18 09:56 Dose: 25 mg Pantoprazole Sodium (Protonix Ec Tab) 40 mg PO DAILY [facility] Last Admin: 01/22/18 09:56 Dose: 40 mg Rosuvastatin Calcium (Crestor) 5 mg PO HS [facility] Last Admin: 01/21/18 23:22 Dose: 5 mg Fluticasone/Salmeterol (Advair Diskus 500/50) 1 puff INH RQ12 [facility] Last Admin: 01/22/18 08:16 Dose: 1 puff - Labs Labs: 01/20/18 10:53 01/20/18 10:53
[2018-01-22] MEDS: (Lantus) Insulin Glargine, Recombinant SC SCH (22:15)
--- NOTE | 2018-01-22 22:41 | CP.PCM.PN ---
Subjective - Date & Time of Evaluation Date of Evaluation: 01/22/18 Time of Evaluation: 17:20 - Subjective Subjective: HPI 52y/o Female from [facility] with PMH DM, COPD, and HTN was seen and evaluated at bedside regarding right foot ulceration. Patient reports that last Tuesday , the wound appeared out of nowhere. Denies of any trauma or incident. Reports there was blue skin discoloration to the site in the beginning. Pt endorses wound appears to be getting bigger. Patient was seen by Dr Mcmanus(investigations director) and was advised admission. Denies noticing any drainage or odor. Pt claimed chills for the past 2 weeks. Patient also complains of headache at bedside. Denies nausea, shortness of breath, chest pains or fever. Present on Admission - Present on Admission Any Indicators Present on Admission: Yes History of Uncontrolled Diabetes: Yes Review of Systems - Constitutional Constitutional: Chills, Malaise, Weakness - EENT Ears: absent: Ear Discharge - Cardiovascular Cardiovascular: Dyspnea on Exertion - Respiratory Respiratory: Dyspnea - Gastrointestinal Gastrointestinal: absent: Nausea - Musculoskeletal Musculoskeletal: Numbness, Tingling - Neurological Neurological: Burning Sensations, Headaches, Tingling Physical Exam - Constitutional Appears: Non-toxic - Head Exam Head Exam: NORMAL INSPECTION - Eye Exam Eye Exam: absent: Scleral icterus - ENT Exam ENT Exam: Mucous Membranes Moist - Neck Exam Neck exam: Positive for: Full Rom - Respiratory Exam Respiratory Exam: absent: Decreased Breath Sounds - Cardiovascular Exam Cardiovascular Exam: REGULAR RHYTHM - GI/Abdominal Exam GI & Abdominal Exam: Soft - Extremities Exam Extremities exam: Negative for: pedal edema Additional comments: +ulceration, dry in rt foot Objective - Vital Signs/Intake and Output Vital Signs (last 24 hours): Temp Pulse Resp BP Pulse Ox 97.6 F 98 H 20 168/89 H 99 01/22/18 16:00 01/22/18 16:00 01/22/18 16:00 01/22/18 16:00 01/22/18 16:00 Intake and Output: 01/22/18 01/23/18 18:59 06:59 Intake Total 550 400 Balance 550 400 - Medications Medications: Current Medications Acetaminophen/Butalbital/Caffeine (Fioricet) 1 tab PO Q6 PRN PRN Reason: Headache Last Admin: 01/22/18 22:23 Dose: 1 tab Albuterol/Ipratropium (Duoneb 3 Mg/0.5 Mg (3 Ml) Ud) 3 ml INH RQ6 [facility] Last Admin: 01/22/18 20:23 Dose: 3 ml Aspirin (Ecotrin) 81 mg PO DAILY [facility] Last Admin: 01/21/18 11:17 Dose: 81 mg Cyclobenzaprine HCl (Flexeril) 10 mg PO Q8 PRN PRN Reason: Muscle spasm Last Admin: 01/21/18 11:17 Dose: 10 mg Enoxaparin Sodium (Lovenox) 30 mg SC DAILY [facility] Last Admin: 01/22/18 09:57 Dose: 30 mg Ferrous Sulfate (Feosol) 325 mg PO TID [facility] Last Admin: 01/22/18 17:46 Dose: 325 mg Gabapentin (Neurontin) 100 mg PO TID [facility] Last Admin: 01/22/18 17:46 Dose: 100 mg Ceftriaxone Sodium 1 gm/ (Sodium Chloride) 100 mls @ 100 mls/hr IVPB Q24H [facility] PRN Reason: Protocol Last Admin: 01/22/18 14:27 Dose: 100 mls/hr Ibuprofen (Motrin Tab) 600 mg PO Q6 PRN PRN Reason: Pain, moderate (4-7) Last Admin: 01/21/18 05:35 Dose: 600 mg Insulin Aspart (Novolog) 0 unit SC ACHS [facility] PRN Reason: Protocol Last Admin: 01/22/18 22:17 Dose: 2 units Insulin Glargine (Lantus) 24 unit SC HS [facility] Last Admin: 01/22/18 22:15 Dose: 24 units Metformin HCl (Glucophage) 1,000 mg PO BID [facility] Last Admin: 01/22/18 17:46 Dose: 1,000 mg Metoprolol Succinate (Toprol Xl) 25 mg PO DAILY [facility] Last Admin: 01/22/18 09:56 Dose: 25 mg Pantoprazole Sodium (Protonix Ec Tab) 40 mg PO DAILY [facility] Last Admin: 01/22/18 09:56 Dose: 40 mg Rosuvastatin Calcium (Crestor) 5 mg PO HS [facility] Last Admin: 01/22/18 22:15 Dose: 5 mg Fluticasone/Salmeterol (Advair Diskus 500/50) 1 puff INH RQ12 [facility] Last Admin: 01/22/18 20:23 Dose: 1 puff - Labs Labs: 01/20/18 10:53 01/20/18 10:53 Assessment and Plan - Assessment and Plan (Free Text) Assessment: Diabetic foot-r/o OM CAD PVD CKD stage 3 T2dm Patient for Peripheral angio tomorrow at 4pm NPO expect meds after lunch
[2018-01-22] MEDS: Sodium Chloride 0.9% 1,000 ML IV SCH (22:58)
[2018-01-23] MEDS: Albuterol-Ipratrop 3 mg / 0.5 (3 ml) UD INH SCH ×2 (01:11→19:00)
--- NOTE | 2018-01-23 03:18 | PN ---
Copied To: Vasiliy Emery MD Attending MD: Vasiliy Emery MD DATE: 01/22/2018 FOLLOWUP RENAL CONSULTATION LOCATION: The patient is located in room 352, bed B. REQUESTED BY: Carlos Haddad MD REASON FOR FOLLOWUP: Chronic kidney disease, for further evaluation and followup. SUBJECTIVE: Mrs. Orozco is a 52-year-old female with a past medical history significant for longstanding hypertension, diabetes, hyperlipidemia, coronary artery disease, status post CABG who was admitted with chief complaints of right foot infection and ulcer, nonhealing. The patient was found to have arterial Doppler moderate disease and received a call this evening from Dr. Tomasz Mcgowan regarding possible angiogram tomorrow. The patient denies any chest pain or palpitation. Denies any fever or cough. No abdominal pain. No nausea, vomiting, or diarrhea. PHYSICAL EXAMINATION: VITAL SIGNS: As follows: Blood pressure 168/89, pulse 98, respiration 20, temperature 97.6, saturation 99%. Height 5 feet 5 inches. Weight is 128 pounds. GENERAL: Mrs. Orozco is a 52-year-old female, moderately built, moderately nourished, not in acute distress. HEENT: Pupils are normal and reactive to light and accommodation. Conjunctivae pink. Sclerae anicteric. Tongue is moist and trachea is midline. LUNGS: Symmetric on both sides. Bilateral breath sounds present. Clear to auscultation. CARDIOVASCULAR SYSTEM: [place] at the fifth intercostal space, midclavicular line. S1, S2 audible. No murmur or gallop. ABDOMEN: Normal in appearance, soft, tympanitic. No guarding. No rigidity. No hepatosplenomegaly. CENTRAL NERVOUS SYSTEM: The patient is alert, awake, oriented x3. Nonfocal neuro examination. Cranial nerves II-XII grossly intact. Sensory and motor system is within normal limits. EXTREMITIES: No cyanosis, no clubbing, no edema. The patient has a dressing to the right foot. CURRENT MEDICATIONS: Include as follows: Advair Diskus, Rocephin 1 g every 24 hours, Crestor 5 mg at bedtime, DuoNeb inhaler, aspirin 81 mg daily, Feosol 325 mg p.o. t.i.d., Fioricet, Flexeril, metformin 1000 mg p.o. b.i.d., Lantus 24 units subcu at bedtime, Lovenox 30 mg subcu daily, ibuprofen 600 mg p.o. every 6 hours p.r.n., NovoLog per sliding scale, Protonix 40 mg daily, IV fluids normal saline at 100 mL per hour, and metoprolol 25 mg p.o. daily. LABORATORY DATA: Include as follows as of 01/20/2018: WBC 9.5, hemoglobin 9.1, hematocrit is 28.2, platelets 324. Sodium 140, potassium 4.7, chloride 109 CO2 of 22, BUN 25, creatinine 2.1, glucose 234, calcium 8.5, phosphorus 4.3, and magnesium 1.7. As of 01/22/2018: Phosphorus 4.5, iron 34, TIBC 187, saturation 18%, and ferritin is 18.7. In summary, Mrs. Orozco is a 52-year-old female with hypertension, diabetes, coronary artery disease, status post coronary artery bypass grafting who was admitted with right foot infection and also found to have moderate disease by arterial Doppler in both lower extremities and scheduled for the peripheral angiogram tomorrow by Dr. Tomasz Mcgowan. 1. Chronic kidney disease stage 3, most likely secondary to diabetic nephropathy, cannot rule out underlying hypertensive nephrosclerosis. The patient had an extensive workup with all the serologies in the past which were negative. 2. Hypertension. Blood pressure is slightly high. Continue all her current medications, metoprolol 25 mg p.o. daily. 3. Cellulitis of the leg. Continue intravenous antibiotics and follow with Podiatry and for possible angiogram of the legs tomorrow. Agree to start intravenous fluids normal saline at 70 mL per hour. Also, we will give Mucomyst 600 mg p.o. b.i.d. We hold metformin and also hold ibuprofen and repeat her complete blood cell count and basic metabolic panel in the morning. We will follow with you. Thank you for allowing me to participate in your patient's care. The patient will have a [id number] risk for contrast-induced nephropathy. Vasiliy Emery MD [facility] # [id number]
[2018-01-23] MEDS: (Novolog) Insulin Aspart, Recombinant 100 u/ml 10 ml vial SC SCH ×4 (08:06→22:02)
[2018-01-23 08:33] LABS: CALCIUM 8.7 mg/dl (8.6-10.4)
--- NOTE | 2018-01-23 09:35 | VASCLAB ---
Date of service: 01/21/2018 STUDY DESCRIPTION: HISTORY: nonhealing ulceration right foot PRIORS: None. TECHNIQUE: Pulse volume recording waveforms and segmental pressures of bilateral lower extremities at multiple levels were obtained. Ankle Brachial Indices (ABIs) were calculated. Report prepared by Wes Jaramillo, KENDY, RVT RIGHT LOWER EXTREMITY: * Brachial artery: Pressure - 159 mmHg. * High thigh: Pressure - 205 mmHg: Ratio - 1.24: PVR waveform - Pulsatile * Low thigh: Pressure - 169 mmHg: Ratio - 1.02 PVR waveform: Pulsatile * Calf: Pressure - 120 mmHg: Ratio - 0.73 PVR waveform: Pulsatile * Posterior tibial Artery: Pressure - 109 mmHg: Ratio - 0.66 PVR waveform: Pulsatile * Dorsalis pedis Artery: Pressure - 106 mmHg: Ratio - 0.64 PVR waveform: Pulsatile * Great toe: Pressure - 69 mmHg: Ratio - 0.42 PVR waveform: Pulsatile Ankle brachial index (SUSY): 0.66 LEFT LOWER EXTREMITY: * Brachial artery: Pressure - 165 mmHg. * High thigh: Pressure - 220 mmHg: Ratio - NC: PVR waveform - Pulsatile * Low thigh: Pressure - 200 mmHg: Ratio - NC PVR waveform: Pulsatile * Calf: Pressure - 115 mmHg: Ratio - 0.70 PVR waveform: Pulsatile * Posterior tibial Artery: Pressure - 85 mmHg: Ratio - 0.52 PVR waveform: Pulsatile * Dorsalis pedis Artery: Pressure - 94 mmHg: Ratio - 0.57 PVR waveform: Pulsatile * Great toe: Pressure - 55 mmHg: Ratio - 0.33 PVR waveform: Pulsatile Ankle brachial index (SUSY): 0.57 OTHER FINDINGS: Right: Left: IMPRESSION: Right: This exam reveals moderately decreased perfusion of the right lower extremity, noted at the superficial femoral, popliteal and tibial artery levels. Left: This exam reveals moderately decreased perfusion of the left lower extremity, noted at the popliteal and tibial artery levels.
[2018-01-23] MEDS ORDERED: Acetylcysteine 20% Inhal Soln (4ml) PO ONE (10:00)
[2018-01-23] MEDS: Metoprolol Succinate 25 mg XL Tab PO SCH (10:25)
[2018-01-23] MEDS: Enoxaparin 30 mg Syringe SC SCH (10:25)
[2018-01-23] MEDS: Pantoprazole 40 mg EC Tab PO SCH (10:25)
--- NOTE | 2018-01-23 10:33 | CP.PCM.PN ---
Subjective - Date & Time of Evaluation Date of Evaluation: 01/23/18 Time of Evaluation: 09:25 - Subjective Subjective: Podiatry Progress Note for Dr. Mcmanus 52 yo female seen and evaluated with attending at bedside for right foot ulceration. Patient returns from MRI this morning. Patient is resting comfortably, AAOx3, and n NAD. Patient reports that her wound appears the same. Did not get bigger or smaller since admission. Patient denies any pain to her right foot. Denies any new pedal complaints. Denies N/V/F/SOB/CP. Objective - Vital Signs/Intake and Output Vital Signs (last 24 hours): Temp Pulse Resp BP Pulse Ox 98 F 94 H 20 159/85 H 99 01/23/18 08:13 01/23/18 08:13 01/23/18 08:13 01/23/18 08:13 01/23/18 08:13 Intake and Output: 01/23/18 01/23/18 06:59 18:59 Intake Total 600 Balance 600 - Medications Medications: Current Medications Acetaminophen/Butalbital/Caffeine (Fioricet) 1 tab PO Q6 PRN PRN Reason: Headache Last Admin: 01/22/18 22:23 Dose: 1 tab Albuterol/Ipratropium (Duoneb 3 Mg/0.5 Mg (3 Ml) Ud) 3 ml INH RQ6 [facility] Last Admin: 01/23/18 01:11 Dose: Not Given Aspirin (Ecotrin) 81 mg PO DAILY [facility] Last Admin: 01/23/18 10:25 Dose: 81 mg Cyclobenzaprine HCl (Flexeril) 10 mg PO Q8 PRN PRN Reason: Muscle spasm Last Admin: 01/21/18 11:17 Dose: 10 mg Enoxaparin Sodium (Lovenox) 30 mg SC DAILY [facility] Last Admin: 01/23/18 10:25 Dose: Not Given Ferrous Sulfate (Feosol) 325 mg PO TID [facility] Last Admin: 01/23/18 10:25 Dose: 325 mg Gabapentin (Neurontin) 100 mg PO TID [facility] Last Admin: 01/23/18 10:25 Dose: 100 mg Ceftriaxone Sodium 1 gm/ (Sodium Chloride) 100 mls @ 100 mls/hr IVPB Q24H [facility] PRN Reason: Protocol Last Admin: 01/22/18 14:27 Dose: 100 mls/hr Sodium Chloride (Sodium Chloride 0.9%) 1,000 mls @ 70 mls/hr IV .[id number] [facility] Stop: 01/23/18 23:59 Last Admin: 01/22/18 22:58 Dose: 70 mls/hr Insulin Aspart (Novolog) 0 unit SC ACHS [facility] PRN Reason: Protocol Last Admin: 01/23/18 08:06 Dose: Not Given Insulin Glargine (Lantus) 24 unit SC [facility] Last Admin: 01/22/18 22:15 Dose: 24 units Metformin HCl (Glucophage) 1,000 mg PO BID [facility] Last Admin: 01/23/18 10:25 Dose: Not Given Metoprolol Succinate (Toprol Xl) 25 mg PO DAILY [facility] Last Admin: 01/23/18 10:25 Dose: 25 mg Pantoprazole Sodium (Protonix Ec Tab) 40 mg PO DAILY [facility] Last Admin: 01/23/18 10:25 Dose: 40 mg Rosuvastatin Calcium (Crestor) 5 mg PO [facility] Last Admin: 01/22/18 22:15 Dose: 5 mg Fluticasone/Salmeterol (Advair Diskus 500/50) 1 puff INH RQ12 [facility] Last Admin: 01/22/18 20:23 Dose: 1 puff - Labs Labs: 01/20/18 10:53 01/23/18 08:08 - Constitutional Appears: Well, Non-toxic, No Acute Distress - Extremities Exam Extremities Exam: absent: Calf Tenderness Additional comments: Vasc: DP nonpalable, PT 1/4 bilaterally, temperature gradient WNL, CFT delayed to digits, mild edema to site of ulceration on right Ortho: mild tenderness at site of ulceration Neuro: gross sensation intact, protective sensation diminished Derm: Circular ulceration noted to the lateral aspect of 5th metatarsal base measuring approximately .8 cm in diameter. No drainage, no erythema, no abscess or fluctuance noted, no streaking, no malodor, no tunneling. Ulceration probes deep but not to bone. - Neurological Exam Neurological Exam: Alert, Awake, Oriented x3 Assessment and Plan - Assessment and Plan (Free Text) Assessment: 52yo female seen and evaluated for right foot ulceration r/o OM Plan: Patient seen and evaluated at bedside with Dr. Marietta Cruz, labs, chart reviewed; afebrile and absent leukocytosis (01/21) X-rays right foot; no evidence of OM Wound culture R foot; Coagulase Neg Staph SUSY's of bilateral lower extremity Vasc recs appreciated Continue IV abx per ID reccs MRI ordered and taken right foot- pending Cleansed ulceration with saline solution, dressed with betadine dsd and kerlix Will continue to follow patient while in house
--- NOTE | 2018-01-23 13:41 | CP.PCM.PN ---
Subjective - Date & Time of Evaluation Date of Evaluation: 01/23/18 Time of Evaluation: 09:00 - Subjective Subjective: c/o pain dr jimenez on board await MRI Objective - Vital Signs/Intake and Output Vital Signs (last 24 hours): Temp Pulse Resp BP Pulse Ox 98 F 94 H 20 159/85 H 99 01/23/18 08:13 01/23/18 08:13 01/23/18 08:13 01/23/18 08:13 01/23/18 08:13 Intake and Output: 01/23/18 01/23/18 06:59 18:59 Intake Total 600 Balance 600 - Medications Medications: Current Medications Acetaminophen/Butalbital/Caffeine (Fioricet) 1 tab PO Q6 PRN PRN Reason: Headache Last Admin: 01/22/18 22:23 Dose: 1 tab Albuterol/Ipratropium (Duoneb 3 Mg/0.5 Mg (3 Ml) Ud) 3 ml INH RQ6 [facility] Last Admin: 01/23/18 01:11 Dose: Not Given Aspirin (Ecotrin) 81 mg PO DAILY [facility] Last Admin: 01/23/18 10:25 Dose: 81 mg Cyclobenzaprine HCl (Flexeril) 10 mg PO Q8 PRN PRN Reason: Muscle spasm Last Admin: 01/21/18 11:17 Dose: 10 mg Enoxaparin Sodium (Lovenox) 30 mg SC DAILY [facility] Last Admin: 01/23/18 10:25 Dose: Not Given Ferrous Sulfate (Feosol) 325 mg PO TID [facility] Last Admin: 01/23/18 10:25 Dose: 325 mg Gabapentin (Neurontin) 100 mg PO TID [facility] Last Admin: 01/23/18 10:25 Dose: 100 mg Ceftriaxone Sodium 1 gm/ (Sodium Chloride) 100 mls @ 100 mls/hr IVPB Q24H [facility] PRN Reason: Protocol Last Admin: 01/22/18 14:27 Dose: 100 mls/hr Sodium Chloride (Sodium Chloride 0.9%) 1,000 mls @ 70 mls/hr IV .[id number] [facility] Stop: 01/23/18 23:59 Last Admin: 01/22/18 22:58 Dose: 70 mls/hr Insulin Aspart (Novolog) 0 unit SC ACHS [facility] PRN Reason: Protocol Last Admin: 01/23/18 11:29 Dose: Not Given Insulin Glargine (Lantus) 24 unit SC [facility] Last Admin: 01/22/18 22:15 Dose: 24 units Metformin HCl (Glucophage) 1,000 mg PO BID [facility] Last Admin: 01/23/18 10:25 Dose: Not Given Metoprolol Succinate (Toprol Xl) 25 mg PO DAILY [facility] Last Admin: 01/23/18 10:25 Dose: 25 mg Pantoprazole Sodium (Protonix Ec Tab) 40 mg PO DAILY [facility] Last Admin: 01/23/18 10:25 Dose: 40 mg Rosuvastatin Calcium (Crestor) 5 mg PO HS [facility] Last Admin: 01/22/18 22:15 Dose: 5 mg Fluticasone/Salmeterol (Advair Diskus 500/50) 1 puff INH RQ12 [facility] Last Admin: 01/22/18 20:23 Dose: 1 puff - Labs Labs: 01/20/18 10:53 01/23/18 08:08 - Constitutional Appears: Non-toxic, Chronically Ill - Head Exam Head Exam: NORMOCEPHALIC - Eye Exam Eye Exam: PERRL - ENT Exam ENT Exam: Mucous Membranes Dry - Neck Exam Neck Exam: absent: Lymphadenopathy - Respiratory Exam Respiratory Exam: Decreased Breath Sounds - Cardiovascular Exam Cardiovascular Exam: REGULAR RHYTHM - GI/Abdominal Exam GI & Abdominal Exam: Distended Assessment and Plan (1) CKD (chronic kidney disease) Status: Acute (2) PVD (peripheral vascular disease) Status: Acute (3) PVD (peripheral vascular disease) Status: Acute (4) Non-healing ulcer of foot Status: Acute (5) Chr obstructive pulmonary disease w/ acute lower respiratory infxn Status: Acute (6) Diabetes mellitus type 2 in nonobese Status: Chronic (7) Hypertension Status: Chronic
[2018-01-23] MEDS: Sodium Chloride 0.9% 1,000 ML IV SCH ×2 (13:51→14:05)
[2018-01-23 14:41] LABS: HEMOGLOBIN 9.5 g/dL (11.0-16.0); MEAN CELL VOLUME 75.2 fL (81.0-99.0); MEAN CORPUSCULAR HEMOGLOBIN 24.6 pg (27.0-31.0); MEAN CORPUSCULAR HGB CONC 32.7 g/dL (33.0-37.0); MEAN PLATELET VOLUME 8.3 fL (7.2-11.7); RBC 3.87 Mil/uL (3.80-5.20); RED CELL DISTRIBUTION WIDTH 15.5 % (11.5-14.5)
--- NOTE | 2018-01-23 15:45 | MRI ---
MRI right foot History: Right foot ulcer Comparison: X-ray dated 01/20/2018 Technique: Multi-echo multiplanar sequences were performed through the right foot without the use of intravenous contrast. Findings: Soft tissue ulceration seen within the lateral soft tissues at the level of the base of the 5th metatarsal bone. No evidence of signal abnormality within the adjacent 5th metatarsal bone to suggest acute osteomyelitis. Mild hallux valgus deformity. Mild increased signal within the Lisfranc ligament which may represent a low grade sprain. Small ankle joint effusion. 2-3 millimeter subchondral cyst noted within the talus. Os navicularis with productive change and bony hypertrophy noted at the os navicularis junction. Visualized extensor and flexor tendons are grossly preserved. Impression: Soft tissue ulceration seen within the lateral soft tissues at the level of the base of the 5th metatarsal bone. No evidence of signal abnormality within the adjacent 5th metatarsal bone to suggest acute osteomyelitis. Mild hallux valgus deformity. Mild increased signal within the Lisfranc ligament which may represent a low grade sprain. Small ankle joint effusion. 2-3 millimeter subchondral cyst noted within the talus. Os navicularis with productive change and bony hypertrophy noted at the os navicularis junction.
[2018-01-23] MEDS ORDERED: Phenylephrine 10 mg/ml Inj ONE (17:01)
[2018-01-23 17:16] LABS: INR 0.9; PROTHROMBIN TIME 10.2 SECONDS (9.7-12.2)
[2018-01-23] MEDS ORDERED: Midazolam 2 MG/2 ML VIAL ONE (17:32)
[2018-01-23] MEDS ORDERED: Lidocaine 2% MPF (5 ml) Inj ONE (17:38)
[2018-01-23] MEDS ORDERED: Iodixanol 320 MG/ML 200 ML BOTTLE IV ONE (17:39)
[2018-01-23] MEDS ORDERED: Iodixanol 320 MG/ML 100 ML BOTTLE IV ONE (18:18)
--- NOTE | 2018-01-23 18:57 | CP.PCM.PN ---
Subjective - Date & Time of Evaluation Date of Evaluation: 01/23/18 Time of Evaluation: 18:57 - Subjective Subjective: pt is seen and examined, follow up consult is dictated #[id number] Objective - Vital Signs/Intake and Output Vital Signs (last 24 hours): Temp Pulse Resp BP Pulse Ox 98.5 F 92 H 20 138/73 99 01/23/18 15:48 01/23/18 15:48 01/23/18 15:48 01/23/18 15:48 01/23/18 15:48 Intake and Output: 01/23/18 01/23/18 06:59 18:59 Intake Total 600 Balance 600 - Medications Medications: Current Medications Acetaminophen/Butalbital/Caffeine (Fioricet) 1 tab PO Q6 PRN PRN Reason: Headache Last Admin: 01/22/18 22:23 Dose: 1 tab Albuterol/Ipratropium (Duoneb 3 Mg/0.5 Mg (3 Ml) Ud) 3 ml INH RQ6 [facility] Last Admin: 01/23/18 01:11 Dose: Not Given Aspirin (Ecotrin) 81 mg PO DAILY [facility] Last Admin: 01/23/18 10:25 Dose: 81 mg Cyclobenzaprine HCl (Flexeril) 10 mg PO Q8 PRN PRN Reason: Muscle spasm Last Admin: 01/21/18 11:17 Dose: 10 mg Enoxaparin Sodium (Lovenox) 30 mg SC DAILY [facility] Last Admin: 01/23/18 10:25 Dose: Not Given Ferrous Sulfate (Feosol) 325 mg PO TID [facility] Last Admin: 01/23/18 13:52 Dose: Not Given Gabapentin (Neurontin) 100 mg PO TID [facility] Last Admin: 01/23/18 13:51 Dose: Not Given Ceftriaxone Sodium 1 gm/ (Sodium Chloride) 100 mls @ 100 mls/hr IVPB Q24H [facility] PRN Reason: Protocol Last Admin: 01/23/18 14:02 Dose: 100 mls/hr Sodium Chloride (Sodium Chloride 0.9%) 1,000 mls @ 70 mls/hr IV .[id number] [facility] Stop: 01/23/18 23:59 Last Admin: 01/23/18 14:05 Dose: 70 mls/hr Insulin Aspart (Novolog) 0 unit SC ACHS [facility] PRN Reason: Protocol Last Admin: 01/23/18 11:29 Dose: Not Given Insulin Glargine (Lantus) 24 unit SC HS [facility] Last Admin: 01/22/18 22:15 Dose: 24 units Metformin HCl (Glucophage) 1,000 mg PO BID [facility] Last Admin: 01/23/18 10:25 Dose: Not Given Metoprolol Succinate (Toprol Xl) 25 mg PO DAILY [facility] Last Admin: 01/23/18 10:25 Dose: 25 mg Pantoprazole Sodium (Protonix Ec Tab) 40 mg PO DAILY [facility] Last Admin: 01/23/18 10:25 Dose: 40 mg Rosuvastatin Calcium (Crestor) 5 mg PO HS [facility] Last Admin: 01/22/18 22:15 Dose: 5 mg Fluticasone/Salmeterol (Advair Diskus 500/50) 1 puff INH RQ12 [facility] Last Admin: 01/22/18 20:23 Dose: 1 puff - Labs Labs: 01/23/18 14:38 01/23/18 08:08 PT 10.2 SECONDS (9.7-12.2) 01/23/18 16:50 INR 0.9 01/23/18 16:50 APTT 31 SECONDS (21-34) 01/23/18 16:50
[2018-01-23] MEDS: Fluticasone-Salmeterol 500-50mcg Diskus INH SCH (19:00)
[2018-01-23] MEDS ORDERED: Sodium Chloride 0.45% 1,000 ML IV SCH (19:30)
--- NOTE | 2018-01-23 19:41 | CP.PCM.PN ---
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 SFA and AT and [place] arteries Plavix 75 mg daily for 3 months ASA 81 daily for life Statins, B Blockers and ARBs If no systolic CHF add Cilostazole 100 mg po bid Watch renal function Nephrology on board Objective - Vital Signs/Intake and Output Vital Signs (last 24 hours): Temp Pulse Resp BP Pulse Ox 98.5 F 92 H 20 138/73 99 01/23/18 15:48 01/23/18 15:48 01/23/18 15:48 01/23/18 15:48 01/23/18 15:48 - Medications Medications: Current Medications Acetaminophen/Butalbital/Caffeine (Fioricet) 1 tab PO Q6 PRN PRN Reason: Headache Last Admin: 01/22/18 22:23 Dose: 1 tab Albuterol/Ipratropium (Duoneb 3 Mg/0.5 Mg (3 Ml) Ud) 3 ml INH RQ6 [facility] Last Admin: 01/23/18 01:11 Dose: Not Given Aspirin (Ecotrin) 81 mg PO DAILY [facility] Last Admin: 01/23/18 10:25 Dose: 81 mg Aspirin (Aspirin Chewable) 81 mg PO DAILY [facility] Clopidogrel Bisulfate (Plavix) 75 mg PO DAILY [facility] Cyclobenzaprine HCl (Flexeril) 10 mg PO Q8 PRN PRN Reason: Muscle spasm Last Admin: 01/21/18 11:17 Dose: 10 mg Enoxaparin Sodium (Lovenox) 30 mg SC DAILY [facility] Last Admin: 01/23/18 10:25 Dose: Not Given Ferrous Sulfate (Feosol) 325 mg PO TID [facility] Last Admin: 01/23/18 13:52 Dose: Not Given Gabapentin (Neurontin) 100 mg PO TID [facility] Last Admin: 01/23/18 13:51 Dose: Not Given Ceftriaxone Sodium 1 gm/ (Sodium Chloride) 100 mls @ 100 mls/hr IVPB Q24H [facility] PRN Reason: Protocol Last Admin: 01/23/18 14:02 Dose: 100 mls/hr Sodium Chloride (Sodium Chloride 0.9%) 1,000 mls @ 70 mls/hr IV .[id number] [facility] Stop: 01/23/18 23:59 Last Admin: 01/23/18 14:05 Dose: 70 mls/hr Sodium Chloride (Sodium Chloride 0.45%) 1,000 mls @ 70 mls/hr IV .[id number] [facility] Stop: 01/24/18 07:31 Insulin Aspart (Novolog) 0 unit SC [facility] PRN Reason: Protocol Last Admin: 01/23/18 11:29 Dose: Not Given Insulin Glargine (Lantus) 24 unit SC [facility] Last Admin: 01/22/18 22:15 Dose: 24 units Metformin HCl (Glucophage) 1,000 mg PO BID [facility] Last Admin: 01/23/18 10:25 Dose: Not Given Metoprolol Succinate (Toprol Xl) 25 mg PO DAILY [facility] Last Admin: 01/23/18 10:25 Dose: 25 mg Pantoprazole Sodium (Protonix Ec Tab) 40 mg PO DAILY [facility] Last Admin: 01/23/18 10:25 Dose: 40 mg Rosuvastatin Calcium (Crestor) 5 mg PO [facility] Last Admin: 01/22/18 22:15 Dose: 5 mg Fluticasone/Salmeterol (Advair Diskus 500/50) 1 puff INH RQ12 [facility] Last Admin: 01/22/18 20:23 Dose: 1 puff - Labs Labs: 01/23/18 14:38 01/23/18 08:08 PT 10.2 SECONDS (9.7-12.2) 01/23/18 16:50 INR 0.9 01/23/18 16:50 APTT 31 SECONDS (21-34) 01/23/18 16:50
--- NOTE | 2018-01-23 20:55 | CP.PCM.PN ---
Subjective - Date & Time of Evaluation Date of Evaluation: 01/22/18 Time of Evaluation: 11:00 - Subjective Subjective: Awake NAD +PVD on Arterial duplex of the LE Objective - Vital Signs/Intake and Output Vital Signs (last 24 hours): Temp Pulse Resp BP Pulse Ox 98.5 F 92 H 20 138/73 99 01/23/18 15:48 01/23/18 15:48 01/23/18 15:48 01/23/18 15:48 01/23/18 15:48 - Medications Medications: Current Medications Acetaminophen/Butalbital/Caffeine (Fioricet) 1 tab PO Q6 PRN PRN Reason: Headache Last Admin: 01/22/18 22:23 Dose: 1 tab Albuterol/Ipratropium (Duoneb 3 Mg/0.5 Mg (3 Ml) Ud) 3 ml INH RQ6 [facility] Last Admin: 01/23/18 01:11 Dose: Not Given Aspirin (Ecotrin) 81 mg PO DAILY [facility] Last Admin: 01/23/18 10:25 Dose: 81 mg Aspirin (Aspirin Chewable) 81 mg PO DAILY [facility] Clopidogrel Bisulfate (Plavix) 75 mg PO DAILY [facility] Cyclobenzaprine HCl (Flexeril) 10 mg PO Q8 PRN PRN Reason: Muscle spasm Last Admin: 01/21/18 11:17 Dose: 10 mg Enoxaparin Sodium (Lovenox) 30 mg SC DAILY [facility] Last Admin: 01/23/18 10:25 Dose: Not Given Ferrous Sulfate (Feosol) 325 mg PO TID [facility] Last Admin: 01/23/18 18:50 Dose: Not Given Gabapentin (Neurontin) 100 mg PO TID [facility] Last Admin: 01/23/18 18:50 Dose: Not Given Ceftriaxone Sodium 1 gm/ (Sodium Chloride) 100 mls @ 100 mls/hr IVPB Q24H [facility] PRN Reason: Protocol Last Admin: 01/23/18 14:02 Dose: 100 mls/hr Sodium Chloride (Sodium Chloride 0.45%) 1,000 mls @ 70 mls/hr IV .[id number] [facility] Stop: 01/24/18 07:31 Insulin Aspart (Novolog) 0 unit SC ACHS [facility] PRN Reason: Protocol Last Admin: 01/23/18 17:10 Dose: Not Given Insulin Glargine (Lantus) 24 unit SC HS [facility] Last Admin: 01/22/18 22:15 Dose: 24 units Metformin HCl (Glucophage) 1,000 mg PO BID [facility] Last Admin: 01/23/18 18:50 Dose: Not Given Metoprolol Succinate (Toprol Xl) 25 mg PO DAILY [facility] Last Admin: 01/23/18 10:25 Dose: 25 mg Pantoprazole Sodium (Protonix Ec Tab) 40 mg PO DAILY [facility] Last Admin: 01/23/18 10:25 Dose: 40 mg Rosuvastatin Calcium (Crestor) 5 mg PO HS [facility] Last Admin: 01/22/18 22:15 Dose: 5 mg Fluticasone/Salmeterol (Advair Diskus 500/50) 1 puff INH RQ12 [facility] Last Admin: 01/22/18 20:23 Dose: 1 puff - Labs Labs: 01/23/18 14:38 01/23/18 08:08 PT 10.2 SECONDS (9.7-12.2) 01/23/18 16:50 INR 0.9 01/23/18 16:50 APTT 31 SECONDS (21-34) 01/23/18 16:50 - Constitutional Appears: Non-toxic - Head Exam Head Exam: NORMAL INSPECTION - Eye Exam Eye Exam: absent: Scleral icterus - ENT Exam ENT Exam: Mucous Membranes Dry - Neck Exam Neck Exam: Full ROM - Respiratory Exam Respiratory Exam: NORMAL BREATHING PATTERN - Cardiovascular Exam Cardiovascular Exam: REGULAR RHYTHM - GI/Abdominal Exam GI & Abdominal Exam: Soft - Extremities Exam Extremities Exam: absent: Pedal Edema - Neurological Exam Neurological Exam: Alert Assessment and Plan - Assessment and Plan (Free Text) Assessment: PVD Diabetic ulcer CAD T2dm CKD stage 3 Plan: Dr Mcgowan to evaluate pt for possible peripheral intervention Nephrology consult Cont abtx
--- NOTE | 2018-01-23 21:43 | CP.PCM.PN ---
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 no chest pain, no sob Objective - Vital Signs/Intake and Output Vital Signs (last 24 hours): Temp Pulse Resp BP Pulse Ox 98.5 F 92 H 20 138/73 99 01/23/18 15:48 01/23/18 15:48 01/23/18 15:48 01/23/18 15:48 01/23/18 15:48 - Medications Medications: Current Medications Acetaminophen/Butalbital/Caffeine (Fioricet) 1 tab PO Q6 PRN PRN Reason: Headache Last Admin: 01/22/18 22:23 Dose: 1 tab Albuterol/Ipratropium (Duoneb 3 Mg/0.5 Mg (3 Ml) Ud) 3 ml INH RQ6 [facility] Last Admin: 01/23/18 01:11 Dose: Not Given Aspirin (Ecotrin) 81 mg PO DAILY [facility] Last Admin: 01/23/18 10:25 Dose: 81 mg Aspirin (Aspirin Chewable) 81 mg PO DAILY [facility] Clopidogrel Bisulfate (Plavix) 75 mg PO DAILY [facility] Cyclobenzaprine HCl (Flexeril) 10 mg PO Q8 PRN PRN Reason: Muscle spasm Last Admin: 01/21/18 11:17 Dose: 10 mg Enoxaparin Sodium (Lovenox) 30 mg SC DAILY [facility] Last Admin: 01/23/18 10:25 Dose: Not Given Ferrous Sulfate (Feosol) 325 mg PO TID [facility] Last Admin: 01/23/18 18:50 Dose: Not Given Gabapentin (Neurontin) 100 mg PO TID [facility] Last Admin: 01/23/18 18:50 Dose: Not Given Ceftriaxone Sodium 1 gm/ (Sodium Chloride) 100 mls @ 100 mls/hr IVPB Q24H [facility] PRN Reason: Protocol Last Admin: 01/23/18 14:02 Dose: 100 mls/hr Sodium Chloride (Sodium Chloride 0.45%) 1,000 mls @ 70 mls/hr IV .[id number] [facility] Stop: 01/24/18 07:31 Insulin Aspart (Novolog) 0 unit SC ACHS [facility] PRN Reason: Protocol Last Admin: 01/23/18 17:10 Dose: Not Given Insulin Glargine (Lantus) 24 unit SC [facility] Last Admin: 01/22/18 22:15 Dose: 24 units Metformin HCl (Glucophage) 1,000 mg PO BID [facility] Last Admin: 01/23/18 18:50 Dose: Not Given Metoprolol Succinate (Toprol Xl) 25 mg PO DAILY [facility] Last Admin: 01/23/18 10:25 Dose: 25 mg Pantoprazole Sodium (Protonix Ec Tab) 40 mg PO DAILY [facility] Last Admin: 01/23/18 10:25 Dose: 40 mg Rosuvastatin Calcium (Crestor) 5 mg PO HS [facility] Last Admin: 01/22/18 22:15 Dose: 5 mg Fluticasone/Salmeterol (Advair Diskus 500/50) 1 puff INH RQ12 [facility] Last Admin: 01/22/18 20:23 Dose: 1 puff - Labs Labs: 01/23/18 14:38 01/23/18 08:08 PT 10.2 SECONDS (9.7-12.2) 01/23/18 16:50 INR 0.9 01/23/18 16:50 APTT 31 SECONDS (21-34) 01/23/18 16:50 - Constitutional Appears: Non-toxic - Head Exam Head Exam: NORMAL INSPECTION - Eye Exam Eye Exam: absent: Scleral icterus - ENT Exam ENT Exam: Mucous Membranes Moist - Neck Exam Neck Exam: Full ROM - Respiratory Exam Respiratory Exam: Decreased Breath Sounds - Cardiovascular Exam Cardiovascular Exam: REGULAR RHYTHM - GI/Abdominal Exam GI & Abdominal Exam: absent: Soft - Extremities Exam Extremities Exam: absent: Pedal Edema Assessment and Plan - Assessment and Plan (Free Text) Assessment: PVD CAD CKD stage 3 T2dm DM Plan: Schedule for CULTURE MANAGER of LE by Dr Mcgowan
[2018-01-23] MEDS: (Lantus) Insulin Glargine, Recombinant SC SCH (22:49)
[2018-01-24] MEDS: Albuterol-Ipratrop 3 mg / 0.5 (3 ml) UD INH SCH ×4 (01:24→19:08)
--- NOTE | 2018-01-24 04:59 | PN ---
Copied To: Vasiliy Emery MD Attending MD: Vasiliy Emery MD DATE: 01/23/2018 FOLLOWUP RENAL CONSULTATION LOCATION: The patient is located in room 352, bed B. REQUESTED BY: Carlos Haddad MD REASON FOR FOLLOWUP: Chronic kidney disease, for angiogram of the lower extremities. SUBJECTIVE: Mrs. Orozco is a 52-year-old middle-aged female with a past medical history significant for longstanding hypertension, diabetes, coronary artery disease, status post CABG, chronic kidney disease who was admitted with chief complaints of sudden onset of a blister and discoloration of the lateral aspect of the right foot. The patient is being treated for cellulitis. Arterial Doppler consistent with moderate PAD. The patient underwent bilateral lower extremity angiogram and found to have restenosis. The patient underwent angioplasty, four vessels as per Dr. Tomasz Mcgowan in the recovery. PHYSICAL EXAMINATION: GENERAL: The patient is not in any distress. No complaints. VITAL SIGNS: As follows: Blood pressure 138/73, pulse 92, respirations 20, temperature 98.5, saturation 99. Height 5 feet 5 inches, and weight is 128 pounds. GENERAL: Mrs. Orozco is a 52-year-old female, moderately built, moderately nourished, not in acute distress. HEENT: Pupils are normal and reactive to light and accommodation. Conjunctivae pink. Sclerae anicteric. Tongue is moist and trachea is midline. LUNGS: Symmetric on both sides. Bilateral breath sounds present. Clear to auscultation. CARDIOVASCULAR SYSTEM: [place] at the fifth intercostal space, midclavicular line. S1, S2 audible. No murmur or gallop. The patient has a midsternal scar present from the previous CABG. ABDOMEN: Normal in appearance, soft, tympanitic. No guarding. No rigidity. No hepatosplenomegaly. CENTRAL NERVOUS SYSTEM: The patient is alert, awake and oriented x3. Nonfocal neuro examination. Cranial nerves II-XII grossly intact. Sensory and motor system is within normal limits. EXTREMITIES: No cyanosis, no clubbing, no edema. Dorsalis pedis pulses are feeble on both lower extremities. The patient also has a dressing to the right foot. CURRENT MEDICATIONS: Include as follows: Advair inhaler, aspirin 81 mg daily, Rocephin 1 g every 24 hours, Crestor 5 mg p.o. at bedtime, DuoNeb inhaler, ferrous sulfate 325 mg p.o. t.i.d., Fioricet one tablet p.o. every 6 hours, Flexeril 10 mg p.o. every 8 hours, metformin on hold, Lantus 24 units subcu at bedtime, Lovenox 30 mg subcu daily, Neurontin 100 mg p.o. t.i.d., NovoLog per sliding scale, Plavix 75 mg p.o. daily, Protonix 40 mg p.o. daily, IV fluids half-normal saline at 70 ml per hour, and metoprolol 25 mg p.o. daily. LABORATORY DATA: Include as follows as of 01/23/2018: WBC 11, hemoglobin 9.5, hematocrit is 29.1, MCV is 75.2 and platelets 342. Sodium 141, potassium 4.7, chloride 112, CO2 of 22, BUN 29, creatinine 2.3, glucose 121, calcium 8.7, phosphorus 4.7. Beta-hCG is 6.24. Accu-Cheks, 87 and 140. PT is 10.2, PTT is 31, INR is 0.9. PTH intact level as of 01/22/2018, is 43. Ferritin level is 18.7, iron 34, TIBC 187, and saturation 18%. Phosphorus is 4.5. Iron 34. ASSESSMENT: In summary, Mrs. Orozco is a 52-year-old female with a history of hypertension, diabetes, coronary artery disease, status post coronary artery bypass grafting, chronic kidney disease with proteinuria who was admitted with a blister on the right foot lateral aspect and discoloration and found to have peripheral arterial disease, underwent for the angiogram and also angioplasty this evening and received about 50 to 60 mL of the contrast as per Radiology and Dr. Tomasz Mcgowan. 1. Status post angiogram of the both lower extremities and angioplasty of four vessels. 2. Chronic kidney disease 4, secondary to diabetic nephropathy. 3. Anemia, secondary to chronic kidney disease and mild iron-deficiency anemia. 4. Hypertension. 5. Diabetes. 6. Right foot cellulitis. PLAN: Continue her current medications and antihypertensive medications include metoprolol and continue IV antibiotic, Rocephin. Continue Crestor, aspirin, Feosol. Consider to change metformin due to the renal failure. Continue GI prophylaxis, Protonix. We will follow with you. Thank you for allowing me to participate in your patient's care. Repeat BMP in a.m.. Case discussed with Dr. Tomasz Mcgowan in rounds. Vasiliy Emery MD
[2018-01-24] MEDS: Fluticasone-Salmeterol 500-50mcg Diskus INH SCH ×2 (07:42→19:08)
[2018-01-24 08:03] LABS: HEMOGLOBIN 9.1 g/dL (11.0-16.0); MEAN CELL VOLUME 75.3 fL (81.0-99.0); MEAN CORPUSCULAR HEMOGLOBIN 24.6 pg (27.0-31.0); MEAN CORPUSCULAR HGB CONC 32.7 g/dL (33.0-37.0); MEAN PLATELET VOLUME 8.5 fL (7.2-11.7); RBC 3.72 Mil/uL (3.80-5.20); RED CELL DISTRIBUTION WIDTH 15.4 % (11.5-14.5); WHITE BLOOD COUNT 9.2 K/uL (4.8-10.8)
[2018-01-24] MEDS: Metoprolol Succinate 25 mg XL Tab PO SCH ×2 (08:20→09:12)
[2018-01-24] MEDS: Pantoprazole 40 mg EC Tab PO SCH ×2 (08:20→09:11)
[2018-01-24] MEDS: Enoxaparin 30 mg Syringe SC SCH ×2 (08:22→09:10)
[2018-01-24] MEDS: (Novolog) Insulin Aspart, Recombinant 100 u/ml 10 ml vial SC SCH ×5 (08:22→21:57)
[2018-01-24 08:35] LABS: CALCIUM 8.9 mg/dl (8.6-10.4)
[2018-01-24] MEDS: Apap-Butalbital-Caffeine 325-50-40mg Tab PO PRN (09:08)
--- NOTE | 2018-01-24 09:39 | CP.PCM.PN ---
Subjective - Date & Time of Evaluation Date of Evaluation: 01/24/18 Time of Evaluation: 09:39 - Subjective Subjective: pt is seen and examined, follow up consult is dictated #[id number] renal function is stable Objective - Vital Signs/Intake and Output Vital Signs (last 24 hours): Temp Pulse Resp BP Pulse Ox 99.4 F 104 H 20 157/88 H 100 01/24/18 08:00 01/24/18 08:00 01/24/18 08:00 01/24/18 00:00 01/24/18 08:00 Intake and Output: 01/24/18 01/24/18 06:59 18:59 Intake Total 400 Balance 400 - Medications Medications: Current Medications Acetaminophen/Butalbital/Caffeine (Fioricet) 1 tab PO Q6 PRN PRN Reason: Headache Last Admin: 01/24/18 09:08 Dose: 1 tab Albuterol/Ipratropium (Duoneb 3 Mg/0.5 Mg (3 Ml) Ud) 3 ml INH RQ6 [facility] Last Admin: 01/24/18 07:42 Dose: Not Given Aspirin (Ecotrin) 81 mg PO DAILY [facility] Last Admin: 01/24/18 09:12 Dose: Not Given Aspirin (Aspirin Chewable) 81 mg PO DAILY [facility] Last Admin: 01/24/18 09:13 Dose: Not Given Clopidogrel Bisulfate (Plavix) 75 mg PO DAILY [facility] Last Admin: 01/24/18 09:08 Dose: 75 mg Cyclobenzaprine HCl (Flexeril) 10 mg PO Q8 PRN PRN Reason: Muscle spasm Last Admin: 01/21/18 11:17 Dose: 10 mg Enoxaparin Sodium (Lovenox) 30 mg SC DAILY [facility] Last Admin: 01/24/18 09:10 Dose: Not Given Ferrous Sulfate (Feosol) 325 mg PO TID [facility] Last Admin: 01/24/18 09:12 Dose: Not Given Gabapentin (Neurontin) 100 mg PO TID [facility] Last Admin: 01/24/18 09:10 Dose: Not Given Ceftriaxone Sodium 1 gm/ (Sodium Chloride) 100 mls @ 100 mls/hr IVPB Q24H [facility] PRN Reason: Protocol Last Admin: 01/23/18 14:02 Dose: 100 mls/hr Insulin Aspart (Novolog) 0 unit SC ACHS [facility] PRN Reason: Protocol Last Admin: 01/24/18 08:22 Dose: Not Given Insulin Glargine (Lantus) 24 unit SC [facility] Last Admin: 01/23/18 22:49 Dose: 24 units Metformin HCl (Glucophage) 1,000 mg PO BID [facility] Last Admin: 01/24/18 09:12 Dose: Not Given Metoprolol Succinate (Toprol Xl) 25 mg PO DAILY [facility] Last Admin: 01/24/18 09:12 Dose: Not Given Pantoprazole Sodium (Protonix Ec Tab) 40 mg PO DAILY [facility] Last Admin: 01/24/18 09:11 Dose: Not Given Rosuvastatin Calcium (Crestor) 5 mg PO [facility] Last Admin: 01/23/18 22:05 Dose: 5 mg Fluticasone/Salmeterol (Advair Diskus 500/50) 1 puff INH RQ12 [facility] Last Admin: 01/24/18 07:42 Dose: Not Given Vitamin B Complex/Vit C/Folic Acid (Nephro-Vince) 1 tab PO 0800 [facility] - Labs Labs: 01/24/18 07:52 01/24/18 07:52 PT 10.2 SECONDS (9.7-12.2) 01/23/18 16:50 INR 0.9 01/23/18 16:50 APTT 31 SECONDS (21-34) 01/23/18 16:50
--- NOTE | 2018-01-24 14:47 | CP.PCM.PN ---
Subjective - Date & Time of Evaluation Date of Evaluation: 01/24/18 Time of Evaluation: 11:00 - Subjective Subjective: Podiatry Progress Note for Dr. 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 Patient is resting comfortably, AAOx3, and NAD. Patient denies any pain to her right foot. Denies any new pedal complaints. Denies N/V/F/SOB/CP. Objective - Vital Signs/Intake and Output Vital Signs (last 24 hours): Temp Pulse Resp BP Pulse Ox 99.4 F 104 H 20 157/88 H 100 01/24/18 08:00 01/24/18 08:00 01/24/18 08:00 01/24/18 00:00 01/24/18 08:00 Intake and Output: 01/24/18 01/24/18 06:59 18:59 Intake Total 400 880 Balance 400 880 - Medications Medications: Current Medications Acetaminophen/Butalbital/Caffeine (Fioricet) 1 tab PO Q6 PRN PRN Reason: Headache Last Admin: 01/24/18 09:08 Dose: 1 tab Albuterol/Ipratropium (Duoneb 3 Mg/0.5 Mg (3 Ml) Ud) 3 ml INH RQ6 [facility] Last Admin: 01/24/18 13:48 Dose: 3 ml Aspirin (Ecotrin) 81 mg PO DAILY [facility] Last Admin: 01/24/18 09:12 Dose: Not Given Aspirin (Aspirin Chewable) 81 mg PO DAILY [facility] Last Admin: 01/24/18 09:13 Dose: Not Given Clopidogrel Bisulfate (Plavix) 75 mg PO DAILY [facility] Last Admin: 01/24/18 09:08 Dose: 75 mg Cyclobenzaprine HCl (Flexeril) 10 mg PO Q8 PRN PRN Reason: Muscle spasm Last Admin: 01/21/18 11:17 Dose: 10 mg Enoxaparin Sodium (Lovenox) 30 mg SC DAILY [facility] Last Admin: 01/24/18 09:10 Dose: Not Given Ferrous Sulfate (Feosol) 325 mg PO TID [facility] Last Admin: 01/24/18 14:03 Dose: 325 mg Gabapentin (Neurontin) 100 mg PO TID [facility] Last Admin: 01/24/18 14:03 Dose: 100 mg Ceftriaxone Sodium 1 gm/ (Sodium Chloride) 100 mls @ 100 mls/hr IVPB Q24H [facility] PRN Reason: Protocol Last Admin: 01/24/18 14:03 Dose: 100 mls/hr Insulin Aspart (Novolog) 0 unit SC ACHS [facility] PRN Reason: Protocol Last Admin: 01/24/18 12:20 Dose: 2 units Insulin Glargine (Lantus) 24 unit SC HS [facility] Last Admin: 01/23/18 22:49 Dose: 24 units Metformin HCl (Glucophage) 1,000 mg PO BID [facility] Last Admin: 01/24/18 09:12 Dose: Not Given Metoprolol Succinate (Toprol Xl) 25 mg PO DAILY [facility] Last Admin: 01/24/18 09:12 Dose: Not Given Pantoprazole Sodium (Protonix Ec Tab) 40 mg PO DAILY [facility] Last Admin: 01/24/18 09:11 Dose: Not Given Rosuvastatin Calcium (Crestor) 5 mg PO HS [facility] Last Admin: 01/23/18 22:05 Dose: 5 mg Fluticasone/Salmeterol (Advair Diskus 500/50) 1 puff INH RQ12 [facility] Last Admin: 01/24/18 07:42 Dose: Not Given Vitamin B Complex/Vit C/Folic Acid (Nephro-Vince) 1 tab PO 0800 [facility] - Labs Labs: 01/24/18 07:52 01/24/18 07:52 PT 10.2 SECONDS (9.7-12.2) 01/23/18 16:50 INR 0.9 01/23/18 16:50 APTT 31 SECONDS (21-34) 01/23/18 16:50 - Constitutional Appears: Well, Non-toxic, No Acute Distress - Extremities Exam Extremities Exam: absent: Calf Tenderness Additional comments: Vasc: DP nonpalable, PT 1/4 bilaterally, temperature gradient WNL, CFT delayed to digits, mild edema to site of ulceration on right Ortho: mild tenderness at site of ulceration Neuro: gross sensation intact, protective sensation diminished Derm: Circular ulceration noted to the lateral aspect of 5th metatarsal base measuring approximately .8 cm in diameter. No drainage, no erythema, no abscess or fluctuance noted, no streaking, no malodor, no tunneling. Ulceration probes deep but not to bone. - Neurological Exam Neurological Exam: Alert, Awake - Psychiatric Exam Psychiatric exam: Normal Affect, Normal Mood Assessment and Plan - Assessment and Plan (Free Text) Assessment: 52yo female seen and evaluated for right foot ulceration Plan: Patient seen and evaluated at bedside with Dr. Mcmanus Vitals, labs, chart reviewed; afebrile and absent leukocytosis X-rays right foot; no evidence of OM MRI-no OM Wound culture R foot; Coagulase Neg Staph SUSY's of bilateral lower extremity Patient 1 day s/p WOOD CABINET FINISHER of Right SFA and AT and [place] arteries Continue IV abx per ID reccs Cleansed ulceration with saline solution, dressed with betadine dsd and kerlix Will continue to follow patient while in house
[2018-01-24] MEDS: (Lantus) Insulin Glargine, Recombinant SC SCH (22:11)
--- NOTE | 2018-01-25 01:37 | PN ---
Copied To: Vasiliy Emery MD Attending MD: Vasiliy Emery MD DATE: 01/24/2018 LOCATION: The patient is located in room 352, bed B. REQUESTED BY: Carlos Haddad MD REASON FOR FOLLOWUP: Chronic kidney disease, for further evaluation. HISTORY OF PRESENT ILLNESS: Mrs. Orozco is a 52-year-old middle-aged female with a past medical history significant for longstanding hypertension, diabetes, hyperlipidemia, chronic kidney disease who was admitted with coronary artery disease, status post CABG, was admitted with right foot blister and discoloration and being treated for cellulitis of the leg and found to have peripheral arterial disease and underwent angiogram of the both lower extremities and angioplasty yesterday. The patient is not in acute distress. Denies any chest pain or palpitation. Denies any fever or cough. No abdominal pain. No nausea, vomiting, diarrhea. PHYSICAL EXAMINATION: VITAL SIGNS: As follows: Blood pressure 161/82, pulse 99, respirations 20, temperature 98.2, saturation 100%. Height 5 feet 5 inches, weight is 128 pounds. GENERAL: Mrs. Orozco is a 52-year-old female, moderately built, moderately nourished, not in distress. HEENT: Pupils normal and reactive to light and accommodation. Conjunctivae pink. Sclerae anicteric. Tongue is moist. Trachea is midline. LUNGS: Symmetric on both sides. Bilateral breath sounds present. Clear to auscultation. CVS: [place] at the fifth intercostal space, midclavicular line. S1, S2 audible. No murmur or gallop. ABDOMEN: Normal in appearance. Soft, tympanitic. No guarding. No rigidity. No hepatosplenomegaly. [employer]: The patient is alert, awake, and oriented x3. Nonfocal neuro examination. Cranial nerves II through XII grossly intact. Sensory and motor system is within normal limits. EXTREMITIES: The patient has a dressing to the right foot. No cyanosis, no clubbing, no edema. Both legs are warm to touch. MEDICATIONS: Her current medications include as follows: Advair, aspirin, Rocephin 1 g every 24 hours, Crestor 5 mg p.o. at bedtime, DuoNeb inhaler, aspirin 81 mg daily, ferrous sulfate 325 mg p.o. t.i.d., Fioricet, Flexeril, metformin 1000 mg p.o. b.i.d., Lantus insulin 24 units subcu at bedtime, Lovenox 13 mg subcu daily, Nephro-Vince 1 tablet daily, Neurontin 100 mg p.o. t.i.d., NovoLog, Plavix 75 mg p.o. daily, Protonix 40 mg p.o. daily, Toprol XL 25 mg p.o. daily. LABORATORY DATA: Include as follows: As of 01/24/2018, WBC 9.2, hemoglobin 9.1, hematocrit is 28, MCV 75.3, platelets 353. Sodium 140, potassium is 5, chloride 113, CO2 of 21, BUN 27, creatinine 2.2, glucose 116, calcium 8.9. IMPRESSION: In summary, Mrs. Orozco is a 52-year-old female with a history of hypertension, diabetes, coronary artery disease, status post coronary artery bypass grafting, chronic kidney disease, proteinuria who was admitted with right foot infection, being treated for cellulitis and peripheral arterial disease, status post angiogram and angioplasty. 1. Chronic kidney disease stage 4, most likely secondary to diabetic nephropathy, cannot rule out underlying hypertensive nephrosclerosis also. 2. Hypertension. Blood pressure is stable, and continue her current medications, metoprolol. 3. Anemia, secondary to chronic kidney disease. Cannot rule out secondary to iron-deficiency anemia. Also continue Nephro-Vince and continue ferrous sulfate. We will add Procrit 10,000 units subcu three times a week. 4. Cellulitis of the leg, continue Rocephin 1 g every 24 hours We will follow with you. Thank you for allowing me to participate in your patient's care. Vasiliy Emery MD
[2018-01-25] MEDS: Albuterol-Ipratrop 3 mg / 0.5 (3 ml) UD INH SCH ×4 (03:47→19:51)
--- NOTE | 2018-01-25 06:28 | CP.PCM.PN ---
Subjective - Date & Time of Evaluation Date of Evaluation: 01/24/18 Time of Evaluation: 09:05 - Subjective Subjective: Patient s/p Right SFA, AT and Peroneal artery angioplsty Stable renal function Objective - Vital Signs/Intake and Output Vital Signs (last 24 hours): Temp Pulse Resp BP Pulse Ox 98.3 F 101 H 20 122/71 99 01/25/18 00:00 01/25/18 00:00 01/25/18 00:00 01/25/18 00:00 01/25/18 00:00 Intake and Output: 01/24/18 01/25/18 18:59 06:59 Intake Total 880 500 Balance 880 500 - Medications Medications: Current Medications Acetaminophen/Butalbital/Caffeine (Fioricet) 1 tab PO Q6 PRN PRN Reason: Headache Last Admin: 01/24/18 09:08 Dose: 1 tab Albuterol/Ipratropium (Duoneb 3 Mg/0.5 Mg (3 Ml) Ud) 3 ml INH RQ6 [facility] Last Admin: 01/25/18 03:47 Dose: Not Given Aspirin (Ecotrin) 81 mg PO DAILY [facility] Last Admin: 01/24/18 09:12 Dose: Not Given Aspirin (Aspirin Chewable) 81 mg PO DAILY [facility] Last Admin: 01/24/18 09:13 Dose: Not Given Clopidogrel Bisulfate (Plavix) 75 mg PO DAILY [facility] Last Admin: 01/24/18 09:08 Dose: 75 mg Cyclobenzaprine HCl (Flexeril) 10 mg PO Q8 PRN PRN Reason: Muscle spasm Last Admin: 01/21/18 11:17 Dose: 10 mg Enoxaparin Sodium (Lovenox) 30 mg SC DAILY [facility] Last Admin: 01/24/18 09:10 Dose: Not Given Ferrous Sulfate (Feosol) 325 mg PO TID [facility] Last Admin: 01/24/18 18:05 Dose: 325 mg Gabapentin (Neurontin) 100 mg PO TID [facility] Last Admin: 01/24/18 18:05 Dose: 100 mg Ceftriaxone Sodium 1 gm/ (Sodium Chloride) 100 mls @ 100 mls/hr IVPB Q24H [facility] PRN Reason: Protocol Last Admin: 01/24/18 14:03 Dose: 100 mls/hr Insulin Aspart (Novolog) 0 unit SC ACHS [facility] PRN Reason: Protocol Last Admin: 01/24/18 21:57 Dose: Not Given Insulin Glargine (Lantus) 24 unit SC HS [facility] Last Admin: 01/24/18 22:11 Dose: 24 units Metformin HCl (Glucophage) 1,000 mg PO BID [facility] Last Admin: 01/24/18 18:06 Dose: 1,000 mg Metoprolol Succinate (Toprol Xl) 25 mg PO DAILY [facility] Last Admin: 01/24/18 09:12 Dose: Not Given Pantoprazole Sodium (Protonix Ec Tab) 40 mg PO DAILY [facility] Last Admin: 01/24/18 09:11 Dose: Not Given Rosuvastatin Calcium (Crestor) 5 mg PO HS [facility] Last Admin: 01/24/18 22:05 Dose: 5 mg Fluticasone/Salmeterol (Advair Diskus 500/50) 1 puff INH RQ12 [facility] Last Admin: 01/24/18 19:08 Dose: 1 puff Vitamin B Complex/Vit C/Folic Acid (Nephro-Vince) 1 tab PO 0800 [facility] - Labs Labs: 01/24/18 07:52 01/24/18 07:52 PT 10.2 SECONDS (9.7-12.2) 01/23/18 16:50 INR 0.9 01/23/18 16:50 APTT 31 SECONDS (21-34) 01/23/18 16:50 Assessment and Plan - Assessment and Plan (Free Text) Assessment: Patient s/p successful BILLET HEADER of Right SFA and AT and [place] arteries Plavix 75 mg daily for 3 months ASA 81 daily for life Statins, B Blockers and ARBs If no systolic CHF add Cilostazole 100 mg po bid Watch renal function Nephrology on board
[2018-01-25] MEDS: Fluticasone-Salmeterol 500-50mcg Diskus INH SCH ×2 (07:41→19:51)
[2018-01-25] MEDS: (Novolog) Insulin Aspart, Recombinant 100 u/ml 10 ml vial SC SCH ×3 (08:23→17:32)
[2018-01-25] MEDS: Multivitamin Vitamin B Complex (Nephro-Vite) Tab PO SCH (08:33)
[2018-01-25] MEDS: Metoprolol Succinate 25 mg XL Tab PO SCH ×2 (08:35→09:59)
[2018-01-25] MEDS: Pantoprazole 40 mg EC Tab PO SCH ×2 (08:37→09:59)
[2018-01-25] MEDS: Enoxaparin 30 mg Syringe SC SCH ×2 (08:44→10:00)
--- NOTE | 2018-01-25 11:33 | CP.PCM.PN ---
Subjective - Date & Time of Evaluation Date of Evaluation: 01/25/18 Time of Evaluation: 11:27 - Subjective Subjective: Podiatry Progress Note for Dr. Mcmanus 52 yo female seen and evaluated for right foot ulceration and s/p 2 days BRAKE LININGS COATER of right SFA and AT and Peroneal arteries. Patient is resting comfortably, AAOx3, and NAD. Patient reports mild pain to her right foot. Reports feeling as if the wound appears deeper. Denies any new pedal complaints. Denies N/V/F/SOB/CP. Objective - Vital Signs/Intake and Output Vital Signs (last 24 hours): Temp Pulse Resp BP Pulse Ox 99.8 F H 119 H 20 184/90 H 98 01/25/18 07:08 01/25/18 07:08 01/25/18 07:08 01/25/18 07:08 01/25/18 07:08 Intake and Output: 01/25/18 01/25/18 06:59 18:59 Intake Total 500 200 Balance 500 200 - Medications Medications: Current Medications Acetaminophen/Butalbital/Caffeine (Fioricet) 1 tab PO Q6 PRN PRN Reason: Headache Last Admin: 01/24/18 09:08 Dose: 1 tab Albuterol/Ipratropium (Duoneb 3 Mg/0.5 Mg (3 Ml) Ud) 3 ml INH RQ6 [facility] Last Admin: 01/25/18 07:41 Dose: 3 ml Aspirin (Ecotrin) 81 mg PO DAILY [facility] Last Admin: 01/25/18 10:01 Dose: Not Given Aspirin (Aspirin Chewable) 81 mg PO DAILY [facility] Last Admin: 01/25/18 10:01 Dose: Not Given Clopidogrel Bisulfate (Plavix) 75 mg PO DAILY [facility] Last Admin: 01/25/18 09:59 Dose: Not Given Cyclobenzaprine HCl (Flexeril) 10 mg PO Q8 PRN PRN Reason: Muscle spasm Last Admin: 01/21/18 11:17 Dose: 10 mg Enoxaparin Sodium (Lovenox) 30 mg SC DAILY [facility] Last Admin: 01/25/18 10:00 Dose: Not Given Ferrous Sulfate (Feosol) 325 mg PO TID [facility] Last Admin: 01/25/18 10:00 Dose: Not Given Gabapentin (Neurontin) 100 mg PO TID [facility] Last Admin: 01/25/18 09:59 Dose: Not Given Ceftriaxone Sodium 1 gm/ (Sodium Chloride) 100 mls @ 100 mls/hr IVPB Q24H [facility] PRN Reason: Protocol Last Admin: 01/24/18 14:03 Dose: 100 mls/hr Insulin Aspart (Novolog) 0 unit SC ACHS [facility] PRN Reason: Protocol Last Admin: 01/25/18 08:23 Dose: 2 units Insulin Glargine (Lantus) 24 unit SC HS [facility] Last Admin: 01/24/18 22:11 Dose: 24 units Metformin HCl (Glucophage) 1,000 mg PO BID [facility] Last Admin: 01/25/18 10:00 Dose: Not Given Metoprolol Succinate (Toprol Xl) 25 mg PO DAILY [facility] Last Admin: 01/25/18 09:59 Dose: Not Given Pantoprazole Sodium (Protonix Ec Tab) 40 mg PO DAILY [facility] Last Admin: 01/25/18 09:59 Dose: Not Given Rosuvastatin Calcium (Crestor) 5 mg PO HS [facility] Last Admin: 01/24/18 22:05 Dose: 5 mg Fluticasone/Salmeterol (Advair Diskus 500/50) 1 puff INH RQ12 [facility] Last Admin: 01/25/18 07:41 Dose: 1 puff Vitamin B Complex/Vit C/Folic Acid (Nephro-Vince) 1 tab PO 0800 [facility] Last Admin: 01/25/18 08:33 Dose: 1 tab - Labs Labs: 01/24/18 07:52 01/24/18 07:52 PT 10.2 SECONDS (9.7-12.2) 01/23/18 16:50 INR 0.9 01/23/18 16:50 APTT 31 SECONDS (21-34) 01/23/18 16:50 - Constitutional Appears: Well, Non-toxic, No Acute Distress - Extremities Exam Extremities Exam: absent: Calf Tenderness Additional comments: Vasc: DP nonpalable, PT 1/4 bilaterally, temperature gradient WNL, CFT delayed to digits, mild edema to site of ulceration on right Ortho: mild tenderness at site of ulceration Neuro: gross sensation intact, protective sensation diminished Derm: Circular ulceration noted to the lateral aspect of 5th metatarsal base measuring approximately .8 cm in diameter. No drainage, no erythema, no abscess or fluctuance noted, no streaking, no malodor, no tunneling. Ulceration probes deep but not to bone. - Neurological Exam Neurological Exam: Alert, Awake, Oriented x3 - Psychiatric Exam Psychiatric exam: Normal Affect, Normal Mood Assessment and Plan - Assessment and Plan (Free Text) Assessment: 52yo female seen and evaluated for right foot ulceration s/p vascular intervention Plan: Patient seen and evaluated at bedside with Dr. Mcamnus Vitals, labs, chart reviewed; afebrile and absent leukocytosis X-rays right foot; no evidence of OM MRI-no OM Wound culture R foot; Coagulase Neg Staph SUSY's of bilateral lower extremity- R moderate decrease perfusion of R SFA, pop, TA L moderate decrease perfusion of R SFA, pop, TA Patient 2 days s/p BRAKE LININGS COATER of Right SFA and AT and [place] arteries Continue IV abx per ID reccs No surgical intervention per podiatry Bubba provide local wound care Cleansed ulceration with saline solution, dressed with betadine dsd and kerlix Patient stable per podiatry standpoint May follow up with Dr. Mcmanus as outpatient in 1 week of discharge Upon discharge, patient needs to change dressing daily. Cleansed with betadine, dsd, and kerlix Will continue to follow patient while in house
--- NOTE | 2018-01-25 16:54 | CP.PCM.PN ---
Subjective - Date & Time of Evaluation Date of Evaluation: 01/25/18 Time of Evaluation: 16:54 - Subjective Subjective: alert, oriented, has some pain on the right foot with walking. Objective - Vital Signs/Intake and Output Vital Signs (last 24 hours): Temp Pulse Resp BP Pulse Ox 97.3 F L 74 20 160/83 H 97 01/25/18 16:00 01/25/18 16:00 01/25/18 16:00 01/25/18 16:00 01/25/18 16:00 Intake and Output: 01/25/18 01/25/18 06:59 18:59 Intake Total 500 200 Balance 500 200 - Medications Medications: Current Medications Acetaminophen/Butalbital/Caffeine (Fioricet) 1 tab PO Q6 PRN PRN Reason: Headache Last Admin: 01/24/18 09:08 Dose: 1 tab Albuterol/Ipratropium (Duoneb 3 Mg/0.5 Mg (3 Ml) Ud) 3 ml INH RQ6 [facility] Last Admin: 01/25/18 13:31 Dose: Not Given Aspirin (Ecotrin) 81 mg PO DAILY [facility] Last Admin: 01/25/18 10:01 Dose: Not Given Aspirin (Aspirin Chewable) 81 mg PO DAILY [facility] Last Admin: 01/25/18 10:01 Dose: Not Given Clopidogrel Bisulfate (Plavix) 75 mg PO DAILY [facility] Last Admin: 01/25/18 09:59 Dose: Not Given Cyclobenzaprine HCl (Flexeril) 10 mg PO Q8 PRN PRN Reason: Muscle spasm Last Admin: 01/21/18 11:17 Dose: 10 mg Enoxaparin Sodium (Lovenox) 30 mg SC DAILY [facility] Last Admin: 01/25/18 10:00 Dose: Not Given Ferrous Sulfate (Feosol) 325 mg PO TID [facility] Last Admin: 01/25/18 14:00 Dose: 325 mg Gabapentin (Neurontin) 100 mg PO TID [facility] Last Admin: 01/25/18 14:18 Dose: 100 mg Ceftriaxone Sodium 1 gm/ (Sodium Chloride) 100 mls @ 100 mls/hr IVPB Q24H [facility] PRN Reason: Protocol Last Admin: 01/25/18 14:15 Dose: 100 mls/hr Insulin Aspart (Novolog) 0 unit SC ACHS [facility] PRN Reason: Protocol Last Admin: 01/25/18 12:30 Dose: 2 units Insulin Glargine (Lantus) 24 unit SC [facility] Last Admin: 01/24/18 22:11 Dose: 24 units Metformin HCl (Glucophage) 1,000 mg PO BID [facility] Last Admin: 01/25/18 10:00 Dose: Not Given Metoprolol Succinate (Toprol Xl) 25 mg PO DAILY [facility] Last Admin: 01/25/18 09:59 Dose: Not Given Pantoprazole Sodium (Protonix Ec Tab) 40 mg PO DAILY [facility] Last Admin: 01/25/18 09:59 Dose: Not Given Rosuvastatin Calcium (Crestor) 5 mg PO HS [facility] Last Admin: 01/24/18 22:05 Dose: 5 mg Fluticasone/Salmeterol (Advair Diskus 500/50) 1 puff INH RQ12 [facility] Last Admin: 01/25/18 07:41 Dose: 1 puff Vitamin B Complex/Vit C/Folic Acid (Nephro-Vince) 1 tab PO 0800 [facility] Last Admin: 01/25/18 08:33 Dose: 1 tab - Labs Labs: 01/24/18 07:52 01/24/18 07:52 PT 10.2 SECONDS (9.7-12.2) 01/23/18 16:50 INR 0.9 01/23/18 16:50 APTT 31 SECONDS (21-34) 01/23/18 16:50 Assessment and Plan - Assessment and Plan (Free Text) Assessment: Patient admitted with diabetic ulcer on right foot, seen and examined. Able to walk with some pain. Discussed with DR Carrillo and podiatryloretta send to rehab today on 7days of augmentin. surgical shoes to use on right foot.
--- NOTE | 2018-01-25 20:38 | CP.PCM.PN ---
Subjective - Date & Time of Evaluation Date of Evaluation: 01/25/18 Time of Evaluation: 20:38 - Subjective Subjective: pt is seen and examined, follow up consult is dictated #[id number] Objective - Vital Signs/Intake and Output Vital Signs (last 24 hours): Temp Pulse Resp BP Pulse Ox 97.3 F L 74 20 160/83 H 97 01/25/18 16:00 01/25/18 16:00 01/25/18 16:00 01/25/18 16:00 01/25/18 16:00 Intake and Output: 01/25/18 01/26/18 18:59 06:59 Intake Total 200 Balance 200 - Medications Medications: Current Medications Acetaminophen/Butalbital/Caffeine (Fioricet) 1 tab PO Q6 PRN PRN Reason: Headache Last Admin: 01/24/18 09:08 Dose: 1 tab Albuterol/Ipratropium (Duoneb 3 Mg/0.5 Mg (3 Ml) Ud) 3 ml INH RQ6 [facility] Last Admin: 01/25/18 19:51 Dose: 3 ml Aspirin (Ecotrin) 81 mg PO DAILY [facility] Last Admin: 01/25/18 10:01 Dose: Not Given Aspirin (Aspirin Chewable) 81 mg PO DAILY [facility] Last Admin: 01/25/18 10:01 Dose: Not Given Clopidogrel Bisulfate (Plavix) 75 mg PO DAILY [facility] Last Admin: 01/25/18 09:59 Dose: Not Given Cyclobenzaprine HCl (Flexeril) 10 mg PO Q8 PRN PRN Reason: Muscle spasm Last Admin: 01/25/18 17:37 Dose: 10 mg Enoxaparin Sodium (Lovenox) 30 mg SC DAILY [facility] Last Admin: 01/25/18 10:00 Dose: Not Given Ferrous Sulfate (Feosol) 325 mg PO TID [facility] Last Admin: 01/25/18 17:30 Dose: 325 mg Gabapentin (Neurontin) 100 mg PO TID [facility] Last Admin: 01/25/18 17:30 Dose: 100 mg Ceftriaxone Sodium 1 gm/ (Sodium Chloride) 100 mls @ 100 mls/hr IVPB Q24H [facility] PRN Reason: Protocol Last Admin: 01/25/18 14:15 Dose: 100 mls/hr Insulin Aspart (Novolog) 0 unit SC ACHS [facility] PRN Reason: Protocol Last Admin: 01/25/18 17:32 Dose: 2 units Insulin Glargine (Lantus) 24 unit SC [facility] Last Admin: 01/24/18 22:11 Dose: 24 units Metformin HCl (Glucophage) 1,000 mg PO BID [facility] Last Admin: 01/25/18 17:30 Dose: 1,000 mg Metoprolol Succinate (Toprol Xl) 25 mg PO DAILY [facility] Last Admin: 01/25/18 09:59 Dose: Not Given Pantoprazole Sodium (Protonix Ec Tab) 40 mg PO DAILY [facility] Last Admin: 01/25/18 09:59 Dose: Not Given Rosuvastatin Calcium (Crestor) 5 mg PO HS [facility] Last Admin: 01/24/18 22:05 Dose: 5 mg Fluticasone/Salmeterol (Advair Diskus 500/50) 1 puff INH RQ12 [facility] Last Admin: 01/25/18 19:51 Dose: 1 puff Vitamin B Complex/Vit C/Folic Acid (Nephro-Vince) 1 tab PO 0800 [facility] Last Admin: 01/25/18 08:33 Dose: 1 tab - Labs Labs: 01/24/18 07:52 01/24/18 07:52 PT 10.2 SECONDS (9.7-12.2) 01/23/18 16:50 INR 0.9 01/23/18 16:50 APTT 31 SECONDS (21-34) 01/23/18 16:50
[2018-01-25] MEDS: (Lantus) Insulin Glargine, Recombinant SC SCH (22:33)
--- NOTE | 2018-01-25 23:02 | CP.PCM.PN ---
Subjective - Date & Time of Evaluation Date of Evaluation: 01/25/18 Time of Evaluation: 08:05 - Subjective Subjective: Patient seen and evaluated Denies chest pain and dyspnea Objective - Vital Signs/Intake and Output Vital Signs (last 24 hours): Temp Pulse Resp BP Pulse Ox 98 F 102 H 20 148/83 99 01/25/18 21:20 01/25/18 21:20 01/25/18 21:20 01/25/18 21:20 01/25/18 21:20 Intake and Output: 01/25/18 01/26/18 18:59 06:59 Intake Total 200 Balance 200 - Medications Medications: Current Medications Acetaminophen/Butalbital/Caffeine (Fioricet) 1 tab PO Q6 PRN PRN Reason: Headache Last Admin: 01/24/18 09:08 Dose: 1 tab Albuterol/Ipratropium (Duoneb 3 Mg/0.5 Mg (3 Ml) Ud) 3 ml INH RQ6 [facility] Last Admin: 01/25/18 19:51 Dose: 3 ml Aspirin (Ecotrin) 81 mg PO DAILY [facility] Last Admin: 01/25/18 10:01 Dose: Not Given Aspirin (Aspirin Chewable) 81 mg PO DAILY [facility] Last Admin: 01/25/18 10:01 Dose: Not Given Clopidogrel Bisulfate (Plavix) 75 mg PO DAILY [facility] Last Admin: 01/25/18 09:59 Dose: Not Given Cyclobenzaprine HCl (Flexeril) 10 mg PO Q8 PRN PRN Reason: Muscle spasm Last Admin: 01/25/18 17:37 Dose: 10 mg Enoxaparin Sodium (Lovenox) 30 mg SC DAILY [facility] Last Admin: 01/25/18 10:00 Dose: Not Given Ferrous Sulfate (Feosol) 325 mg PO TID [facility] Last Admin: 01/25/18 17:30 Dose: 325 mg Gabapentin (Neurontin) 100 mg PO TID [facility] Last Admin: 01/25/18 17:30 Dose: 100 mg Ceftriaxone Sodium 1 gm/ (Sodium Chloride) 100 mls @ 100 mls/hr IVPB Q24H [facility] PRN Reason: Protocol Last Admin: 01/25/18 14:15 Dose: 100 mls/hr Insulin Aspart (Novolog) 0 unit SC ACHS [facility] PRN Reason: Protocol Last Admin: 01/25/18 17:32 Dose: 2 units Insulin Glargine (Lantus) 24 unit SC HS [facility] Last Admin: 01/25/18 22:33 Dose: Not Given Metformin HCl (Glucophage) 1,000 mg PO BID [facility] Last Admin: 01/25/18 17:30 Dose: 1,000 mg Metoprolol Succinate (Toprol Xl) 25 mg PO DAILY [facility] Last Admin: 01/25/18 09:59 Dose: Not Given Pantoprazole Sodium (Protonix Ec Tab) 40 mg PO DAILY [facility] Last Admin: 01/25/18 09:59 Dose: Not Given Rosuvastatin Calcium (Crestor) 5 mg PO HS [facility] Last Admin: 01/25/18 21:41 Dose: 5 mg Fluticasone/Salmeterol (Advair Diskus 500/50) 1 puff INH RQ12 [facility] Last Admin: 01/25/18 19:51 Dose: 1 puff Vitamin B Complex/Vit C/Folic Acid (Nephro-Vince) 1 tab PO 0800 [facility] Last Admin: 01/25/18 08:33 Dose: 1 tab - Labs Labs: 01/24/18 07:52 01/24/18 07:52 PT 10.2 SECONDS (9.7-12.2) 01/23/18 16:50 INR 0.9 01/23/18 16:50 APTT 31 SECONDS (21-34) 01/23/18 16:50 Assessment and Plan - Assessment and Plan (Free Text) Assessment: PVD CAD CKD stage 3 T2dm DM
[2018-01-26 00:25] VITALS: O2SAT 100
[2018-01-26] MEDS: Albuterol-Ipratrop 3 mg / 0.5 (3 ml) UD INH SCH ×3 (02:02→13:33)
--- NOTE | 2018-01-26 02:20 | PN ---
Copied To: Vasiliy Emery MD Attending MD: Vasiliy Emery MD DATE: 01/25/2018 FOLLOWUP RENAL CONSULTATION LOCATION: The patient is located in room 352, bed B. REQUESTED BY: Carlos Haddad MD REASON FOR FOLLOWUP: Chronic kidney disease and for further evaluation. HISTORY OF PRESENT ILLNESS: Mrs. Orozco is a 52-year-old middle-aged female with a past medical history significant for longstanding hypertension, diabetes, hyperlipidemia, coronary artery disease, status post CABG who was admitted with right foot infection, and the patient is being treated for cellulitis and also found to have peripheral arterial disease, status post angiogram and angioplasty of both lower extremities, and the patient is complaining of right flank pain and also shortness of breath and denies any chest pain. Denies any palpitation. No nausea, no vomiting. No fever. No cough. PHYSICAL EXAMINATION: VITAL SIGNS: As follows: Blood pressure 148/83, pulse 74, respirations 20, temperature 97.3, saturation 97%. Height 5 feet 5 inches, weight is 128 pounds. GENERAL: Mrs. Orozco is a 52-year-old female, moderately built, moderately nourished, not in acute distress. HEENT: Pupils normal and reactive to light and accommodation. Conjunctivae pink. Sclerae anicteric. Tongue is moist. Trachea is midline. LUNGS: Symmetric on both sides. Bilateral breath sounds present. Clear to auscultation. CVS: [place] at the fifth intercostal space, midclavicular line. S1, S2 audible. No murmur or gallop. ABDOMEN: Normal in appearance. Soft, tympanitic. No guarding. No rigidity. No hepatosplenomegaly. FIRE TENDER: The patient is alert, awake, and oriented x3. Nonfocal neuro examination. Cranial nerves II through XII grossly intact. Sensory and motor system is within normal limits. EXTREMITIES: No cyanosis, no clubbing on the left lower extremity. The patient has 1+ edema in both lower extremities. The patient also has a dressing to the right foot. MEDICATIONS: Her current medications include as follows: Advair 1 puff every 12 hours, aspirin 81 mg daily, Rocephin 1 g every 24 hours, Crestor 5 mg p.o. at bedtime, DuoNeb inhaler 3 mL every 6 hours, aspirin 81 mg daily, Feosol 325 mg p.o. 3 times daily, Flexeril 10 mg p.o. every 8 hours, metformin 1000 mg p.o. b.i.d., Lovenox 30 mg subcu daily, Nephro-Vince 1 tablet daily, gabapentin, Plavix 75 mg p.o. daily, Protonix 40 mg daily, metoprolol 25 mg p.o. daily. Accu-Cheks 171, 190, 187, and 135. IMPRESSION: In summary, Mrs. Orozco is a 52-year-old female with hypertension, diabetes, coronary artery disease, status post coronary artery bypass grafting, proteinuria, chronic kidney disease, anemia who was admitted with right foot infection, being treated for cellulitis of the leg and also status post angiogram of the both lower extremities and also angioplasty. 1. Chronic kidney disease stage 4, most likely secondary to diabetic nephropathy, cannot rule out underlying hypertensive nephrosclerosis. 2. Hypertension. Blood pressure is stable. Continue her current medications, metoprolol. 4. Anemia, secondary to renal failure. 5. Cellulitis of the leg. Continue IV antibiotics as per ID recommendations, Rocephin 1 g every 24 hours. Repeat CBC, BMP in a.m. We will follow with you. Thank you for allowing me to participate in your patient's care. Vasiliy Emery MD
[2018-01-26 07:24] LABS: HEMOGLOBIN 8.3 g/dL (11.0-16.0); MEAN CELL VOLUME 75.5 fL (81.0-99.0); MEAN CORPUSCULAR HEMOGLOBIN 25.1 pg (27.0-31.0); MEAN CORPUSCULAR HGB CONC 33.2 g/dL (33.0-37.0); MEAN PLATELET VOLUME 8.4 fL (7.2-11.7); RBC 3.3 Mil/uL (3.80-5.20); RED CELL DISTRIBUTION WIDTH 15.4 % (11.5-14.5); WHITE BLOOD COUNT 8.7 K/uL (4.8-10.8)
[2018-01-26] MEDS: Fluticasone-Salmeterol 500-50mcg Diskus INH SCH (07:33)
[2018-01-26 07:53] LABS: CALCIUM 8.5 mg/dl (8.6-10.4)
[2018-01-26 08:05] VITALS: BP 151/84; PULSE 103; TEMP 98.1
[2018-01-26] MEDS: (Novolog) Insulin Aspart, Recombinant 100 u/ml 10 ml vial SC SCH ×2 (08:16→12:20)
[2018-01-26] MEDS: Multivitamin Vitamin B Complex (Nephro-Vite) Tab PO SCH (08:18)
[2018-01-26] MEDS: Metoprolol Succinate 25 mg XL Tab PO SCH (10:20)
[2018-01-26] MEDS: Pantoprazole 40 mg EC Tab PO SCH (10:20)
[2018-01-26] MEDS: Enoxaparin 30 mg Syringe SC SCH (10:21)
--- NOTE | 2018-01-26 12:04 | CP.PCM.PN ---
Subjective - Date & Time of Evaluation Date of Evaluation: 01/26/18 Time of Evaluation: 10:01 - Subjective Subjective: Podiatry Progress Note for Dr. Mcmanus 52 yo female seen and evaluated with attending Dr. Mcmanus for right foot ulceration and s/p 3 days WALL TAPER of right SFA and AT and Peroneal arteries. Patient is AAOx3, and NAD. Patient reports back pain. She reports decreased pain to her right foot. Denies any new pedal complaints. Denies N/V/F/SOB/CP. Objective - Vital Signs/Intake and Output Vital Signs (last 24 hours): Temp Pulse Resp BP Pulse Ox 98.1 F 103 H 20 151/84 H 100 01/26/18 08:00 01/26/18 08:00 01/26/18 08:00 01/26/18 08:00 01/26/18 08:00 Intake and Output: 01/26/18 01/26/18 06:59 18:59 Intake Total 500 Balance 500 - Medications Medications: Current Medications Acetaminophen/Butalbital/Caffeine (Fioricet) 1 tab PO Q6 PRN PRN Reason: Headache Last Admin: 01/24/18 09:08 Dose: 1 tab Albuterol/Ipratropium (Duoneb 3 Mg/0.5 Mg (3 Ml) Ud) 3 ml INH RQ6 [facility] Last Admin: 01/26/18 07:33 Dose: Not Given Aspirin (Ecotrin) 81 mg PO DAILY [facility] Last Admin: 01/26/18 10:20 Dose: 81 mg Aspirin (Aspirin Chewable) 81 mg PO DAILY [facility] Last Admin: 01/26/18 10:25 Dose: 81 mg Clopidogrel Bisulfate (Plavix) 75 mg PO DAILY [facility] Last Admin: 01/26/18 10:20 Dose: 75 mg Cyclobenzaprine HCl (Flexeril) 10 mg PO Q8 PRN PRN Reason: Muscle spasm Last Admin: 01/25/18 17:37 Dose: 10 mg Enoxaparin Sodium (Lovenox) 30 mg SC DAILY [facility] Last Admin: 01/26/18 10:21 Dose: 30 mg Ferrous Sulfate (Feosol) 325 mg PO TID [facility] Last Admin: 01/26/18 10:20 Dose: 325 mg Gabapentin (Neurontin) 100 mg PO TID [facility] Last Admin: 01/26/18 10:20 Dose: 100 mg Ceftriaxone Sodium 1 gm/ (Sodium Chloride) 100 mls @ 100 mls/hr IVPB Q24H [facility] PRN Reason: Protocol Last Admin: 01/25/18 14:15 Dose: 100 mls/hr Insulin Aspart (Novolog) 0 unit SC ACHS [facility] PRN Reason: Protocol Last Admin: 01/26/18 08:16 Dose: Not Given Insulin Glargine (Lantus) 24 unit SC HS [facility] Last Admin: 01/25/18 22:33 Dose: Not Given Metformin HCl (Glucophage) 1,000 mg PO BID [facility] Last Admin: 01/26/18 10:20 Dose: 1,000 mg Metoprolol Succinate (Toprol Xl) 25 mg PO DAILY [facility] Last Admin: 01/26/18 10:20 Dose: 25 mg Pantoprazole Sodium (Protonix Ec Tab) 40 mg PO DAILY [facility] Last Admin: 01/26/18 10:20 Dose: 40 mg Rosuvastatin Calcium (Crestor) 5 mg PO HS [facility] Last Admin: 01/25/18 21:41 Dose: 5 mg Fluticasone/Salmeterol (Advair Diskus 500/50) 1 puff INH RQ12 [facility] Last Admin: 01/26/18 07:33 Dose: Not Given Vitamin B Complex/Vit C/Folic Acid (Nephro-Vince) 1 tab PO 0800 [facility] Last Admin: 01/26/18 08:18 Dose: 1 tab - Labs Labs: 01/26/18 07:12 01/26/18 07:12 PT 10.2 SECONDS (9.7-12.2) 01/23/18 16:50 INR 0.9 01/23/18 16:50 APTT 31 SECONDS (21-34) 01/23/18 16:50 - Constitutional Appears: Well, Non-toxic, No Acute Distress - Extremities Exam Extremities Exam: absent: Calf Tenderness Additional comments: Vasc: DP faintly palpable, PT 1/4 bilaterally, temperature gradient WNL, right foot is warm compared to the left foot, CFT delayed to digits, mild edema to site of ulceration on right Ortho: mild tenderness at site of ulceration Neuro: gross sensation intact, protective sensation diminished Derm: Circular ulceration noted to the lateral aspect of 5th metatarsal base measuring approximately .8 cm in diameter. No drainage, no erythema, no abscess or fluctuance noted, no streaking, no malodor, no tunneling. Ulceration probes deep but not to bone. - Neurological Exam Neurological Exam: Alert, Awake, Oriented x3 - Psychiatric Exam Psychiatric exam: Normal Affect, Normal Mood Assessment and Plan - Assessment and Plan (Free Text) Assessment: 52yo female seen and evaluated for right foot ulceration s/p vascular intervention Plan: Patient seen and evaluated at bedside with Dr. Mcmanus Vitals, labs, chart reviewed; afebrile and absent leukocytosis X-rays right foot; no evidence of OM MRI-no OM Wound culture R foot; Coagulase Neg Staph SUSY's of bilateral lower extremity- R moderate decrease perfusion of R SFA, pop, TA L moderate decrease perfusion of R SFA, pop, TA Patient 3 days s/p WALL TAPER of Right SFA and AT and [place] arteries No surgical intervention per podiatry Will provide local wound care Cleansed ulceration with saline solution, dressed with betadine dsd and kerlix Patient stable per podiatry standpoint May follow up with Dr. Mcmanus as outpatient in 1 week of discharge Upon discharge, patient needs to change dressing daily. Cleansed with betadine, dsd, and kerlix Will continue to follow patient while in house
== END 2018-01-26 17:25 | disposition home or self-care (01) | DRG 294 ==
LOC: C.ER 20:38 → C.9E 22:23 → C.3T 22:53 → C.9E 23:10 → C.3T 23:36
PROVIDERS: ADMIT Internal Medicine; ATTEND Internal Medicine
DX: E11.621 Type 2 diabetes mellitus with foot ulcer (principal); L97.519 Non-pressure chronic ulcer of other part of right foot with unspecified severity; L03.115 Cellulitis of right lower limb; J44.9 Chronic obstructive pulmonary disease, unspecified; E11.51 Type 2 diabetes mellitus with diabetic peripheral angiopathy without gangrene; E11.21 Type 2 diabetes mellitus with diabetic nephropathy; D50.9 Iron deficiency anemia, unspecified; I12.9 Hypertensive chronic kidney disease with stage 1 through stage 4 chronic kidney disease, or unspecified chronic kidney disease; N18.3 Chronic kidney disease, stage 3 (moderate); K21.9 Gastro-esophageal reflux disease without esophagitis; E78.5 Hyperlipidemia, unspecified; I25.10 Atherosclerotic heart disease of native coronary artery without angina pectoris; Z79.4 Long term (current) use of insulin; Z95.1 Presence of aortocoronary bypass graft; E11.65 Type 2 diabetes mellitus with hyperglycemia; D63.1 Anemia in chronic kidney disease; M62.838 Other muscle spasm

== ENCOUNTER 2018-02-17 16:00 | Inpatient (IN) | payer OTHER ==
[2018-02-17 16:00] VITALS: BMI 25.0
--- NOTE | 2018-02-17 16:54 | C.PDOC ---
History Of Present Illness 52 yr old female w/ hx of L illiac stent, DM, HTN, CABG, CAD presents from Dr. Mcgowan (Cards) office for eval of HTN, Headache. Per Dr. Mcgowan pt has had WHITE and elevated pressures and requires admission and workup. Pt notes headache x2d, not worst of life, not sudden in onset and not associated with any FND. No chest pain or SOB but pt also notes RUQ pain, non radiating, without complaints. No diarrhea, constipation, vaginal d/c, rashes or dark / bloody stool. No other complaints. No falls or trauma. Time Seen by Provider: 02/17/18 16:47 Chief Complaint (Nursing): Medical Clearance History Per: Patient Past Medical History Vital Signs: Last Vital Signs Temp 98.5 F 02/17/18 22:20 Pulse 101 H 02/17/18 22:20 Resp 17 02/17/18 22:20 BP 161/87 H 02/17/18 22:20 Pulse Ox 97 02/17/18 22:20 - Medical History PMH: Anemia, Arthritis (KNEE; BACK), CAD, COPD, Diabetes, HTN, Hypercholesterolemia Denies: Pulmonary Embolism, Chronic Kidney Disease Surgical History: CABG (09/19) - [facility] Procedures ASSIST WITH CARDIAC OUTPUT USING BALLOON PUMP, INTERMITTENT (08/31/15) DILATION OF R FEM ART WITH DRUG-ELUT INTRA, PERC APPROACH (01/19/18) DILATION OF RIGHT ANTERIOR TIBIAL ARTERY, PERC APPROACH (01/19/18) DILATION OF RIGHT FEMORAL ARTERY, PERCUTANEOUS APPROACH (01/19/18) DILATION OF RIGHT PERONEAL ARTERY, PERCUTANEOUS APPROACH (01/19/18) EXCISION OF DUODENUM, ENDO, DIAGN (06/07/16) EXCISION OF STOMACH, ENDO, DIAGN (06/07/16) FLUOROSCOPY OF LEFT HEART USING LOW OSMOLAR CONTRAST (08/31/15) FLUOROSCOPY OF MULT COR ART USING L OSM CONTRAST (08/31/15) MEASURE OF CARDIAC SAMPL & PRESSURE, L HEART, PERC APPROACH (08/31/15) TRANSFUSE NONAUT RED BLOOD CELLS IN PERIPH VEIN, PERC (03/13/15) TRANSFUSE NONAUT WHOLE BLOOD IN PERIPH VEIN, PERC (03/11/16) Family History: States: Unknown Family Hx, CAD (mother) - Social History Hx Tobacco Use: No Hx Alcohol Use: No Hx Substance Use: No - Immunization History Hx Tetanus Toxoid Vaccination: No Hx Influenza Vaccination: Yes Hx Pneumococcal Vaccination: No Review Of Systems Constitutional: Negative for: Fever, Chills Eyes: Negative for: Pain ENT: Negative for: Ear Pain Cardiovascular: Negative for: Chest Pain, Palpitations, Orthopnea Respiratory: Negative for: Cough, Shortness of Breath Gastrointestinal: Positive for: Abdominal Pain. Negative for: Nausea, Vomiting , Diarrhea, Constipation, Melena, Hematochezia, Hematemesis Genitourinary: Negative for: Dysuria, Frequency, Incontinence Musculoskeletal: Negative for: Neck Pain, Shoulder Pain, Arm Pain Skin: Negative for: Rash Neurological: Negative for: Weakness, Numbness Physical Exam - Physical Exam Appears: Well, No Acute Distress Skin: Normal Color, Warm, Dry Eye(s): bilateral: Normal Inspection, PERRL, EOMI Nose: Normal Throat: Normal Neck: Normal Cardiovascular: Rhythm Regular Respiratory: Normal Breath Sounds Gastrointestinal/Abdominal: Bowel Sounds, No Soft, Tenderness (RUQ), No Organomegaly, No Mass, No Distention, No Guarding, No Rebound, No Hernia, No Ascites Back: Normal Inspection Extremity: Normal ROM Neurological/Psych: Oriented x3, Normal Speech, Normal Cognition, Normal Cranial Nerves, No Cerebellar Signs, Normal Motor, Normal Sensation Gait: Steady Extremity: Right: No Drift, Left: No Drift, Upper: No Drift, Lower: No Drift ED Course And Treatment - Laboratory Results Result Diagrams: 02/17/18 18:45 02/17/18 18:45 O2 Sat by Pulse Oximetry: 100 Medical Decision Making Medical Decision Making: N/V intact in all extremities no Neuro deficit. Pt notes abd pain, RUQ will seek imaging RUQ US And CT head unremarkable appreciate consult w/ Dr. Travis- to admit to his service EK, NSR, No stemi BP improved on its own, hydralazine d/c Disposition - Disposition Disposition: HOSPITALIZED Disposition Time: 18:50 Condition: GOOD - Clinical Impression Clinical Impression: HTN (hypertension), BLAYNE (acute kidney injury)
--- NOTE | 2018-02-17 17:55 | CT ---
Date of service: 02/17/2018 PROCEDURE: CT HEAD WITHOUT CONTRAST. HISTORY: headache COMPARISON: Noncontrast head CT performed 01/20/18 TECHNIQUE: Axial computed tomography images were obtained through the head/brain without intravenous contrast. Radiation dose: Total exam DLP = 795.89 mGy-cm. This CT exam was performed using one or more of the following dose reduction techniques: Automated exposure control, adjustment of the mA and/or kV according to patient size, and/or use of iterative reconstruction technique. FINDINGS: HEMORRHAGE: No intracranial hemorrhage. BRAIN: Mild generalized atrophy. No mass effect or edema. Intracranial atherosclerosis. The lawler-white matter differentiation appears intact. Please note that MRI with diffusion imaging is more sensitive in the detection of acute ischemic event. VENTRICLES: No hydrocephalus. CALVARIUM: Unremarkable. PARANASAL SINUSES: Unremarkable as visualized. No significant inflammatory changes. MASTOID AIR CELLS: Unremarkable as visualized. No inflammatory changes. OTHER FINDINGS: None. IMPRESSION: No acute intracranial pathology identified. Findings as above.
--- NOTE | 2018-02-17 18:24 | US ---
Date of service: 02/17/2018 HISTORY: ruq pain COMPARISON: CT abdomen and pelvis with contrast performed 05/20/17 TECHNIQUE: Sonographic evaluation of the right upper quadrant of the abdomen. FINDINGS: LIVER: Measures 16.0 cm in length. 1.1 x 0.8 x 1.0 cm hyperechoic lesion in the right hepatic lobe. The main portal vein appears patent with normal directional flow. No intrahepatic bile duct dilatation. GALLBLADDER: Gallstones. No gallbladder wall thickening or pericholecystic edema. Negative sonographic Parsons's sign as assessed by the sld teacher. COMMON BILE DUCT: Measures 5 mm. PANCREAS: Not well-visualized. RIGHT KIDNEY: Measures 11.0 x 4.1 x 5.6 cm. 0.8 x 0.7 x 0.6 cm lower pole cyst. No obstructing calculus or hydronephrosis identified. AORTA: Limited visualization appears grossly unremarkable. IVC: Limited visualization appears grossly unremarkable. OTHER FINDINGS: Incidental note is made of right pleural effusion. IMPRESSION: 1.1 cm indeterminate right hepatic lobe lesion, possibly hemangioma. Cholelithiasis. Right renal cysts. Right pleural effusion.
[2018-02-17 18:50] LABS: BASO # 0.2 K/uL (0.0-0.2); BASO % 1.4 % (0.0-2.0); EOS # 0.6 K/uL (0.0-0.7); EOS % 5.2 % (0.0-4.0); HEMOGLOBIN 9.9 g/dL (11.0-16.0); LYMPH # 2.3 K/uL (1.0-4.3); LYMPH % 20.4 % (20.0-40.0); MEAN CELL VOLUME 75.3 fL (81.0-99.0); MEAN CORPUSCULAR HEMOGLOBIN 24.3 pg (27.0-31.0); MEAN CORPUSCULAR HGB CONC 32.3 g/dL (33.0-37.0); MEAN PLATELET VOLUME 7.9 fL (7.2-11.7); MONO # 0.6 K/uL (0.0-0.8); MONO % 5.5 % (0.0-10.0); NEUT # 7.5 K/uL (1.8-7.0); NEUT % 67.5 % (50.0-75.0); NRBC % 0.2 % (0.0-2.0); RBC 4.05 Mil/uL (3.80-5.20); RED CELL DISTRIBUTION WIDTH 17.3 % (11.5-14.5); WHITE BLOOD COUNT 11.1 K/uL (4.8-10.8)
[2018-02-17 19:15] LABS: TROPONIN I 0.035 ng/mL (0.00-0.120)
[2018-02-17 19:16] LABS: ALB/GLOB RATIO 0.9 (1.0-2.1); ALBUMIN 3.6 g/dL (3.5-5.0); CALCIUM 9.7 mg/dl (8.6-10.4)
[2018-02-17] MEDS ORDERED: Albuterol HFA 90 mcg/actuation (8 g) IH PRN (21:24)
[2018-02-17] MEDS ORDERED: Home Med 1 UNIT (Atorvastatin [Lipitor] 10 MG) PO SCH (22:00)
[2018-02-17] MEDS: (Lantus) Insulin Glargine, Recombinant SC SCH (22:38)
[2018-02-18] MEDS ORDERED: INSULIN LISPRO 5 UNIT SQ SCH (07:30)
[2018-02-18] MEDS: Pantoprazole 40 mg EC Tab PO SCH (09:29)
[2018-02-18] MEDS ORDERED: Metoprolol Succinate 25 mg XL Tab PO SCH (10:00)
[2018-02-18] MEDS: Fluticasone-Salmeterol 500-50mcg Diskus INH SCH ×2 (10:15→19:34)
[2018-02-18] MEDS: (Novolog) Insulin Aspart, Recombinant 100 u/ml 10 ml vial SC SCH ×2 (13:59→17:30)
[2018-02-18] MEDS ORDERED: Albuterol HFA 90 mcg/actuation (8 g) IH PRN (16:15)
--- NOTE | 2018-02-18 17:00 | CP.PCM.CON ---
History of Present Illness - History of Present Illness History of Present Illness: pt is seen and examined, full consult is dictated [id number] Past Patient History - Infectious Disease Hx of Infectious Diseases: None - Past Medical History & Family History Past Medical History?: Yes - Past Social History Smoking Status: Never Smoked - CARDIAC Hx Hypercholesterolemia: Yes Hx Hypertension: Yes - PULMONARY Hx Chronic Obstructive Pulmonary Disease (COPD): Yes Hx Pulmonary Embolism: No - NEUROLOGICAL Hx Neurological Disorder: Yes Hx Syncope: Yes - HEENT Hx HEENT Problems: No - RENAL Hx Chronic Kidney Disease: No - ENDOCRINE/METABOLIC Hx Endocrine Disorders: Yes Hx Diabetes Mellitus Type 1: Yes - HEMATOLOGICAL/ONCOLOGICAL Hx Anemia: Yes - INTEGUMENTARY Hx Dermatological Problems: No - MUSCULOSKELETAL/RHEUMATOLOGICAL Hx Arthritis: Yes (KNEE; BACK) Hx Falls: Yes - GASTROINTESTINAL Hx Gastrointestinal Disorders: Yes Hx Gastroesophageal Reflux: Yes - GENITOURINARY/GYNECOLOGICAL Hx Genitourinary Disorders: No - PSYCHIATRIC Hx Substance Use: No - SURGICAL HISTORY Hx Coronary Artery Bypass Graft: Yes (09/19) - ANESTHESIA Hx Anesthesia: Yes Hx Anesthesia Reactions: No Hx Malignant Hyperthermia: No Meds Allergies/Adverse Reactions: Allergies Allergy/AdvReac Type Severity Reaction Status Date / Time No Known Allergies Allergy Verified 05/20/17 09:51 - Medications Medications: Current Medications Albuterol (Ventolin Hfa 90 Mcg/Actuation (8 G)) 1 puff IH RQID PRN PRN Reason: Wheezing Amlodipine Besylate (Norvasc) 10 mg PO DAILY [facility] Last Admin: 02/18/18 09:29 Dose: 10 mg Aspirin (Ecotrin) 81 mg PO DAILY [facility] Last Admin: 02/18/18 09:29 Dose: 81 mg Carvedilol (Coreg) 12.5 mg PO BID [facility] Last Admin: 02/18/18 09:29 Dose: 12.5 mg Cyclobenzaprine HCl (Flexeril) 10 mg PO Q8 PRN PRN Reason: Muscle spasm Ferrous Sulfate (Feosol) 325 mg PO TID [facility] Last Admin: 02/18/18 14:00 Dose: Not Given Gabapentin (Neurontin) 100 mg PO TID [facility] Last Admin: 02/18/18 13:59 Dose: 100 mg Heparin Sodium (Porcine) (Heparin) 5,000 units SC Q8 [facility] Last Admin: 02/18/18 13:59 Dose: 5,000 units Hydralazine HCl (Apresoline) 50 mg PO Q12H [facility] Ibuprofen (Motrin Tab) 600 mg PO Q6 PRN PRN Reason: Pain, moderate (4-7) Insulin Aspart (Novolog) 5 unit SC AC [facility] Last Admin: 02/18/18 13:59 Dose: 5 units Insulin Glargine (Lantus) 24 unit SC HS [facility] Last Admin: 02/17/18 22:38 Dose: Not Given Metformin HCl (Glucophage) 1,000 mg PO BIDCC [facility] Last Admin: 02/18/18 09:29 Dose: 1,000 mg Pantoprazole Sodium (Protonix Ec Tab) 40 mg PO DAILY [facility] Last Admin: 02/18/18 09:29 Dose: 40 mg Rosuvastatin Calcium (Crestor) 5 mg PO HS [facility] Last Admin: 02/17/18 22:38 Dose: 5 mg Fluticasone/Salmeterol (Advair Diskus 500/50) 1 puff INH RQ12 [facility] Last Admin: 02/18/18 10:15 Dose: Not Given Results - Vital Signs Recent Vital Signs: Last Vital Signs Temp 98.0 F 02/18/18 07:50 Pulse 93 H 02/18/18 12:30 Resp 18 02/18/18 07:50 BP 166/82 H 02/18/18 09:29 Pulse Ox 99 02/18/18 07:50 - Labs Result Diagrams: 02/17/18 18:45 02/17/18 18:45 Labs: Laboratory Results - last 24 hr 02/17/18 02/17/18 02/17/18 18:45 18:45 22:18 WBC 11.1 H RBC 4.05 Hgb 9.9 L Hct 30.5 L MCV 75.3 L MCH 24.3 L MCHC 32.3 L RDW 17.3 H Plt Count 354 MPV 7.9 Neut % (Auto) 67.5 Lymph % (Auto) 20.4 [place] % (Auto) 5.5 Eos % (Auto) 5.2 H Baso % (Auto) 1.4 Neut # (Auto) 7.5 H Lymph # (Auto) 2.3 [place] # (Auto) 0.6 Eos # (Auto) 0.6 Baso # (Auto) 0.2 Sodium 141 Potassium 5.0 Chloride 110 H Carbon Dioxide 18 L Anion Gap 19 BUN 44 H Creatinine 2.6 H Est GFR ( Amer) 24 Est GFR (Non-Af Amer) 19 POC Glucose (mg/dL) 152 H Random Glucose 147 H Calcium 9.7 Total Bilirubin 0.4 AST 26 ALT 21 Alkaline Phosphatase 117 Troponin I 0.0350 Total Protein 7.6 Albumin 3.6 Globulin 4.0 H Albumin/Globulin Ratio 0.9 L Lipase 210 02/18/18 02/18/18 06:35 12:33 WBC RBC Hgb Hct MCV MCH MCHC RDW Plt Count MPV Neut % (Auto) Lymph % (Auto) [place] % (Auto) Eos % (Auto) Baso % (Auto) Neut # (Auto) Lymph # (Auto) [place] # (Auto) Eos # (Auto) Baso # (Auto) Sodium Potassium Chloride Carbon Dioxide Anion Gap BUN Creatinine Est GFR ( Amer) Est GFR (Non-Af Amer) POC Glucose (mg/dL) 178 H 217 H Random Glucose Calcium Total Bilirubin AST ALT Alkaline Phosphatase Troponin I Total Protein Albumin Globulin Albumin/Globulin Ratio Lipase
[2018-02-18] MEDS: Albuterol HFA 90 mcg/actuation (8 g) IH PRN (19:35)
[2018-02-18 22:43] LABS: URINE BACTERIA RARE (<OCC); URINE BILIRUBIN NEGATIVE (NEGATIVE); URINE BLOOD 1+ (NEGATIVE); URINE CLARITY Clear (Clear); URINE COLOR Yellow (YELLOW); URINE GLUCOSE (UA) 2+ mg/dL (Normal); URINE LEUKOCYTE ESTERASE NEG Leu/uL (Negative); URINE PROTEIN 3+ mg/dL (NEGATIVE); URINE UROBILINOGEN NORMAL mg/dL (0.2-1.0)
[2018-02-18] MEDS: (Lantus) Insulin Glargine, Recombinant SC SCH (22:57)
--- NOTE | 2018-02-19 01:43 | CON ---
DATE: 02/18/2018 LOCATION: Room 660, bed B. REQUESTED BY: Dr. Wes Carrillo. REASON FOR CONSULTATION: CKD 4, proteinuria, for further evaluation, uncontrolled hypertension. HISTORY OF PRESENT ILLNESS: Mrs. Orozco is a 52 years old middle-aged [place] female with a past medical history significant for longstanding diabetes for more than 15 years, hypertension for 15 years, coronary artery disease status post CABG about 2 years ago and hysterectomy about 2 years ago for fibroid uterus and hyperlipidemia, chronic kidney disease, proteinuria who was recently admitted to [facility] on 01/19/2018 with a blister on the medial aspect of the right foot status post angiogram of the lower extremity, status post angioplasty. The patient was admitted with creatinine about to 2.2 and discharged home on 3.4 on 01/26/2018, now the patient was admitted with a chief complaints of headache and right-sided body pain since yesterday. As per the patient, she went to see reflector driller and deburrer and complaining of headache and also pain on the right side and the patient was admitted for further evaluation. The patient is not in acute distress. Denies any chest pain, palpitation. Denies any nausea, vomiting, diarrhea. Denies any abdominal pain. No fever. No cough. The patient claims the ulcer on the right foot lateral border was healing. No swelling of the legs. PAST MEDICAL HISTORY: Significant for longstanding hypertension, diabetes for more than 15 years, coronary artery disease status post CABG , hyperlipidemia, chronic kidney disease. PAST SURGICAL HISTORY: Hysterectomy in January 2016 and CABG in 2015 also, status post angioplasty of the right lower extremity and healing ulcer on the lateral border of the right foot. ALLERGIES: NO KNOWN DRUG ALLERGIES. SOCIAL HISTORY: No smoking. No alcohol, no drugs. PERSONAL HISTORY: The patient is single, , has three children. FAMILY HISTORY: Both father and mother are alive. Father is about 73 years old suffering with diabetes and coronary artery disease and CABG and mother is 67 years old status post CABG and also suffering with hypertension. She also has four sisters who are healthy and three children who are healthy. CURRENT MEDICATIONS: Advair 1 puff every 12 hours, hydralazine 50 mg p.o. every 12 hours, Coreg 12.5 mg p.o. b.i.d., Crestor 5 mg at bedtime, Ecotrin 81 mg daily, Feosol 325 mg p.o. t.i.d., Flexeril 10 mg p.o. every 8 hours, metformin 1000 mg p.o. b.i.d., heparin 5000 units subcu every 8 hours, Lantus 24 units subcu at bedtime, ibuprofen 600 mg p.o. every 6 hours p.r.n., Neurontin 100 mg p.o. t.i.d., Norvasc 10 mg daily, NovoLog 5 units subcu a.c., Ventolin 1 puff q.i.d., Protonix 40 mg p.o. daily. REVIEW OF SYSTEMS: All other review of systems are reviewed and are negative except headache and recent body pains and a healing ulcer on the lateral aspect of the right foot. PHYSICAL EXAMINATION: GENERAL: Mrs. Orozco is a 52 years old middle-aged female moderately built, moderately nourished, not in acute distress. HEENT: Pupils normal, react to light and accommodation. Conjunctivae pink. Sclerae anicteric. Tongue is moist. Trachea is midline. LUNGS: Symmetric on both sides. Bilateral breath sounds present. Clear to auscultation. CVS: [place] at the fifth intercostal space, midclavicular line. S1 and S2 audible. No murmur or gallop. The patient has a midsternal scar present from the previous CABG. ABDOMEN: Normal in appearance, soft, tympanic. No guarding, no rigidity. No hepatosplenomegaly. SYSTEMS DESIGNER: The patient is alert, awake, oriented x3. Nonfocal neuro examination. Cranial nerves II through XII grossly intact. Sensory and motor system is within normal limits. EXTREMITIES: No cyanosis, no clubbing, no edema. The patient has a dressing to the lateral border of the right foot. A small healed ulcer, no active drainage, no redness of the ulcer or surrounding tissue. LABORATORY DATA: As of 02/17/2018; WBC 11.1, hemoglobin 9.9, hematocrit is 30.5, and MCV 75.3, platelets 354. Sodium 141, potassium 5, chloride 110, CO2 18, BUN 44, creatinine 2.6 and glucose 147, calcium 9.7. Total bili 0.4, AST 26, ALT 21, alkaline phosphatase 117, troponin 0.035, total protein 7.6, albumin 3.6 and lipase is 210. Accu-Cheks 152, 178, 217. CT of the head as of 02/17/2018; no acute intracranial pathology identified, mild generalized atrophy, no mass effect or edema, intracranial atherosclerosis, pritchett white matter differentiation appears intact. No intracranial hemorrhage. Ultrasound of the abdomen as of 02/17/2018, right kidney measures 11 x 4.1 x 5.6 and 0.8 x 0.7 x 0.6 cm lower pole cyst, no obstructing calculi, hydronephrosis and liver measures 16 cm in length, .1.1 x 0.8 x 1 cm hyperechoic lesion in the right hepatic lobe, main portal vein appears patent with normal direction flow, no intrahepatic bile duct dilatation, gallstones, no gallbladder wall thickening or pericholecystic edema. Negative sonographic Parsons's sign. Impression, 1.1-cm indeterminate right hepatic lobe lesion, possibly hemangioma, cholelithiasis, right renal cyst and right pleural effusion. Review of other labs urinalysis as of 05/20/2017; straw color, clear, pH 7, specific 1.016, protein 2+, glucose 3+ and ketones negative, blood negative, nitrites negative, leukocyte esterase negative. As of 03/22/2016, serum protein electrophoresis, selective protein last pattern suggest of nephrotic syndrome and as of 03/13/2016, hepatitis B surface negative, hepatitis B surface antibody is negative, hepatitis B core antibody negative, hep C antibody is negative. Other laboratory data as of 03/12/2016 urine creatinine 98.2 and urine protein is 1683 mg/dL, protein creatinine ratio is about 16. ASSESSMENT AND PLAN: In summary, Mrs. Orozco is a 52 years old middle-aged [place] female with history of longstanding hypertension, diabetes, chronic kidney disease with serum creatinine of 1.3 on 10/15/2016 and as of 03/16/2017, creatinine 1.7 and as of 01/19/2018, serum creatinine 2.5 and as of 01/24/2018, serum creatinine 2.2, as of 01/26/2018, serum creatinine 3.4 with normal ultrasound of the kidney size and proteinuria. 1. Chronic kidney disease 4, most likely secondary to diabetic nephropathy, cannot rule out underlying superimposed hypertensive nephrosclerosis also. 2. Anemia secondary to chronic kidney disease, rule out iron-deficiency anemia. 3. Metabolic acidosis secondary to renal failure. 4. Hypertension uncontrolled. Continue Norvasc, Coreg and hydralazine, titrate hydralazine and Coreg as needed. We will avoid steroids due to chronic kidney disease and will check PTH intact level and iron TIBC, ferritin level and also we will add Nephrocaps 1 tablet p.o. daily and check serum phosphorus level. Avoid nephrotoxic agents. We will follow with you. We will also repeat hepatitis B and C serology and a C3, C4, 24 hour urine protein creatinine, creatinine clearance. Thank you for allowing me to participate in your patient's care. Vasiliy Emery MD
[2018-02-19] MEDS: Fluticasone-Salmeterol 500-50mcg Diskus INH SCH ×2 (07:50→20:20)
[2018-02-19 08:22] LABS: IRON 47 ug/dL (37-170)
[2018-02-19] MEDS: (Novolog) Insulin Aspart, Recombinant 100 u/ml 10 ml vial SC SCH ×4 (08:27→17:00)
[2018-02-19 08:31] LABS: % IRON SATURATION 25 (20-55); TOTAL IRON BINDING CAPACITY 184 ug/dL (250-450)
[2018-02-19] MEDS: Pantoprazole 40 mg EC Tab PO SCH (09:45)
[2018-02-19] MEDS: Multivitamin Vitamin B Complex (Nephro-Vite) Tab PO SCH (09:45)
[2018-02-19 11:11] LABS: COMPLEMENT C4 84.3 mg/dL (14.0-44.0)
--- NOTE | 2018-02-19 11:47 | CP.PCM.CON ---
History of Present Illness - History of Present Illness History of Present Illness: Podiatry Consult Note- Dr. Mcmanus 52 y/o F patient PMH DM, COPD, Ischemic heart disease,diabetic neuropathy and HTN seen and evaluated at bedside for right foot ulceration. Patient sates that last Tuesday she underwent revascularization of her left LE, Patient states that she has the ulcer on the outside of her right foot since 1 month. She states that it's healing. patient states that it's painful. She states that the pain might go up 6-7/10 on VAS scale. She states that it's painful to touch. Patient Denies of any trauma or incident. Patient denies any drainage or malodorat the wound site. She denies any recent F/N/V/C or SOB. She states that she has tingling and numbness all the time in her feet. Patient denies any other pedal complaint at this time PMH DM, HTN, COPD, Ischemic heart disease and diabetic neuropathy PSH: bypass, hysterectomy SH: denies smoking, reports socially drinking EtOH, denies illicit drug use ALL: NKDA MEDS: see MAR list Review of Systems - Review of Systems Review of Systems: As per HPI Past Patient History - Infectious Disease Hx of Infectious Diseases: None - Past Medical History & Family History Past Medical History?: Yes - Past Social History Smoking Status: Never Smoked - CARDIAC Hx Hypercholesterolemia: Yes Hx Hypertension: Yes - PULMONARY Hx Chronic Obstructive Pulmonary Disease (COPD): Yes Hx Pulmonary Embolism: No - NEUROLOGICAL Hx Neurological Disorder: Yes Hx Syncope: Yes - HEENT Hx HEENT Problems: No - RENAL Hx Chronic Kidney Disease: No - ENDOCRINE/METABOLIC Hx Endocrine Disorders: Yes Hx Diabetes Mellitus Type 1: Yes - HEMATOLOGICAL/ONCOLOGICAL Hx Anemia: Yes - INTEGUMENTARY Hx Dermatological Problems: No - MUSCULOSKELETAL/RHEUMATOLOGICAL Hx Arthritis: Yes (KNEE; BACK) Hx Falls: Yes - GASTROINTESTINAL Hx Gastrointestinal Disorders: Yes Hx Gastroesophageal Reflux: Yes - GENITOURINARY/GYNECOLOGICAL Hx Genitourinary Disorders: No - PSYCHIATRIC Hx Substance Use: No - SURGICAL HISTORY Hx Coronary Artery Bypass Graft: Yes (09/19) - ANESTHESIA Hx Anesthesia: Yes Hx Anesthesia Reactions: No Hx Malignant Hyperthermia: No Meds Allergies/Adverse Reactions: Allergies Allergy/AdvReac Type Severity Reaction Status Date / Time No Known Allergies Allergy Verified 05/20/17 09:51 - Medications Medications: Current Medications Albuterol (Ventolin Hfa 90 Mcg/Actuation (8 G)) 1 puff IH RQID PRN PRN Reason: Wheezing Last Admin: 02/18/18 19:35 Dose: 1 puff Amlodipine Besylate (Norvasc) 10 mg PO DAILY [facility] Last Admin: 02/19/18 09:44 Dose: 10 mg Aspirin (Ecotrin) 81 mg PO DAILY [facility] Last Admin: 02/19/18 09:45 Dose: 81 mg Carvedilol (Coreg) 12.5 mg PO BID [facility] Last Admin: 02/19/18 09:44 Dose: 12.5 mg Cyclobenzaprine HCl (Flexeril) 10 mg PO Q8 PRN PRN Reason: Muscle spasm Ferrous Sulfate (Feosol) 325 mg PO TID [facility] Last Admin: 02/19/18 09:44 Dose: 325 mg Gabapentin (Neurontin) 100 mg PO TID [facility] Last Admin: 02/19/18 09:44 Dose: 100 mg Heparin Sodium (Porcine) (Heparin) 5,000 units SC Q8 [facility] Last Admin: 02/19/18 06:02 Dose: 5,000 units Hydralazine HCl (Apresoline) 50 mg PO Q12H [facility] Last Admin: 02/19/18 06:02 Dose: 50 mg Ibuprofen (Motrin Tab) 600 mg PO Q6 PRN PRN Reason: Pain, moderate (4-7) Insulin Aspart (Novolog) 5 unit SC AC [facility] Last Admin: 02/19/18 08:27 Dose: Not Given Insulin Glargine (Lantus) 24 unit SC HS [facility] Last Admin: 02/18/18 22:57 Dose: 24 u Metformin HCl (Glucophage) 1,000 mg PO BIDCC [facility] Pantoprazole Sodium (Protonix Ec Tab) 40 mg PO DAILY [facility] Last Admin: 02/19/18 09:45 Dose: 40 mg Rosuvastatin Calcium (Crestor) 5 mg PO HS [facility] Last Admin: 02/17/18 22:38 Dose: 5 mg Fluticasone/Salmeterol (Advair Diskus 500/50) 1 puff INH RQ12 [facility] Last Admin: 02/19/18 07:50 Dose: 1 puff Vitamin B Complex/Vit C/Folic Acid (Nephro-Vince) 1 tab PO 0800 [facility] Last Admin: 02/19/18 09:45 Dose: 1 tab Physical Exam - Constitutional Appears: Well, Non-toxic, No Acute Distress - Head Exam Head Exam: ATRAUMATIC, NORMOCEPHALIC - Extremities Exam Additional comments: LE focused exam: VASC: DP/PT non-palpable b/l, temperature gradient warm to cool from proximal to distal b/l, Cap refill delayed to digits > 4 sec, no edema noted b/l. NEURO: Gross sensation intact, Protective sensation diminished DERM:Kye circular ulceration noted to the lateral aspect of 5th metatarsal base measuring approximately 0.5 cm in diameter with no depth. No drainage, No erythema, No fluctanance noted, No streaking. Ulcer is surrounded by hyperkeratotic area. No clinical signs of infection. MSK: Pain on palpating at site of ulceration. - Neurological Exam Neurological exam: Alert, Oriented x3 - Psychiatric Exam Psychiatric exam: Normal Affect, Normal Mood Results - Vital Signs Recent Vital Signs: Last Vital Signs Temp 98.3 F 02/19/18 07:00 Pulse 94 H 02/19/18 07:24 Resp 18 02/19/18 07:00 BP 142/77 02/19/18 09:44 Pulse Ox 96 02/19/18 07:00 - Labs Result Diagrams: 02/17/18 18:45 02/17/18 18:45 Labs: Laboratory Results - last 24 hr 02/18/18 02/18/18 02/18/18 12:33 17:07 20:58 POC Glucose (mg/dL) 217 H 197 H 211 H Iron TIBC % Saturation Ferritin Urine Color Urine Clarity Urine pH Ur Specific [place] Urine Protein Urine Glucose (UA) Urine Ketones Urine Blood Urine Nitrate Urine Bilirubin Urine Urobilinogen Ur Leukocyte Esterase Urine WBC (Auto) Urine RBC (Auto) Urine Bacteria Complement C3 Complement C4 02/18/18 02/19/18 02/19/18 22:30 06:11 07:45 POC Glucose (mg/dL) 138 H Iron 47 TIBC 184 L % Saturation 25 Ferritin Urine Color Yellow Urine Clarity Clear Urine pH 7.0 Ur Specific [place] 1.013 Urine Protein 3+ H Urine Glucose (UA) 2+ H Urine Ketones Negative Urine Blood 1+ H Urine Nitrate Negative Urine Bilirubin Negative Urine Urobilinogen Normal Ur Leukocyte Esterase Neg Urine WBC (Auto) 1 Urine RBC (Auto) 5 H Urine Bacteria Rare Complement C3 Complement C4 02/19/18 02/19/18 07:45 07:45 POC Glucose (mg/dL) Iron TIBC % Saturation Ferritin 134.0 Urine Color Urine Clarity Urine pH Ur Specific [place] Urine Protein Urine Glucose (UA) Urine Ketones Urine Blood Urine Nitrate Urine Bilirubin Urine Urobilinogen Ur Leukocyte Esterase Urine WBC (Auto) Urine RBC (Auto) Urine Bacteria Complement C3 137.0 Complement C4 84.3 H Assessment & Plan - Assessment and Plan (Free Text) Assessment: 52F PMH DM, COPD, and HTN with right foot ulceration Plan: Patient seen and evaluated Discussed plan in detail with attending Dr Mcmanus Labs, charts reviewed; Afebrile, WBCs 11.1 Ulcer dressed with betadine, DSD and kerlix Will continue to follow up patient while in house - Date & Time Date: 02/19/18 Time: 11:00
--- NOTE | 2018-02-19 13:52 | CP.PCM.HP ---
History of Present Illness - History of Present Illness History of Present Illness: 52 y/o F patient PMH DM, COPD, Ischemic heart disease,diabetic neuropathy and HTN seen and evaluated at bedside for right foot ulceration. Patient sates that last Tuesday she underwent revascularization of her left LE, Patient states that she has the ulcer on the outside of her right foot since 1 month. She states that it's healing. patient states that it's painful. She states that the pain might go up 6-7/10 on VAS scale. She states that it's painful to touch. Patient Denies of any trauma or incident. Patient denies any drainage or malodorat the wound site. She denies any recent F/N/V/C or SOB. She states that she has tingling and numbness all the time in her feet. Patient denies any other pedal complaint at this time PMH DM, HTN, COPD, Ischemic heart disease and diabetic neuropathy PSH: bypass, hysterectomy SH: denies smoking, reports socially drinking EtOH, denies illicit drug use ALL: NKDA MEDS: see MAR list Present on Admission - Present on Admission Any Indicators Present on Admission: No History of DVT/PE: No History of Uncontrolled Diabetes: No Urinary Catheter: No Decubitus Ulcer Present: No History Surgical Site Infection Following: None Review of Systems - Review of Systems All systems: reviewed and no additional remarkable complaints except - Constitutional Constitutional: As Per HPI - EENT Eyes: absent: As Per HPI, Blind Spots, Blurred Vision, Change in Vision, Decreased Night Vision, Diplopia, Discharge, Dry Eye, Exophthalmos, Floaters, Irritation, Itchy Eyes, Loss of Peripheral Vision, Pain, Photophobia, Requires Corrective Lenses, Sees Flashes, Spots in Vision, Tunnel Vision, Other Visual Disturbances, Loss of Vision, Other Ears: absent: As Per HPI, Decreased Hearing, Ear Discharge, Ear Pain, Tinnitus, Abnormal Hearing, Disequilibrium, Dizziness, Other Nose/Mouth/Throat: absent: As Per HPI, Epistaxis, Nasal Congestion, Nasal Discharge, Nasal Obstruction, Nasal Trauma, Nose Pain, Post Nasal Drip, Sinus Pain, Sinus Pressure, Bleeding Gums, Change in Voice, Dental Pain, Dry Mouth, Dysphagia, Halitosis, Hoarsness, Lip Swelling, Mouth Lesions, Mouth Pain, Odynophagia, Sore Throat, Throat Swelling, Tongue Swelling, Facial Pain, Neck Pain, Neck Mass, Other - Breasts Breasts: absent: As Per HPI, Change in Shape, Mass, Pain, Nipple Discharge, Nipple Inversion, Skin Changes, Swelling, Other - Cardiovascular Cardiovascular: As Per HPI - Respiratory Respiratory: absent: As Per HPI, Cough, Dyspnea, Hemoptysis, Dyspnea on Exertion , Wheezing, Snoring, Stridor, Pain on Inspiration, Chest Congestion, Excessive Mucous Production, Change in Mucous Color, Pain with Coughing, Other - Gastrointestinal Gastrointestinal: absent: As Per HPI, Abdominal Pain, Belching, Bloating, Change in Bowel Habits, Change in Stool Character, Coffee Ground Emesis, Constipation, Cramping, Diarrhea, Dyspepsia, Dysphagia, Early Satiety, Excessive Flatus, Fecal Incontinence, Heartburn, Hematemesis, Hematochezia, Loose Stools, Melena, Nausea, Odynophagia, Temesmus, Vomiting, Other - Genitourinary Genitourinary: absent: As Per HPI, Change in Urinary Stream, Difficulty Urinating, Dysuria, Flank Pain, Hematuria, Pyuria, Nocturia, Urinary Incontinence, Urinary Frequency, Urinary Hesitance, Urinary Urgency, Voiding Freq/Small Amts, Freq UTI, Hx Renal/Bladder Calculi, Hx /Renal Surgery, Bladder Distension, Other - Reproductive: Female Reproductive:Female: absent: As Per HPI, Amenorrhea, Amenorrhea/ Control, Currently Menstual, Cycle <21 Days, Cycle >35 Days, Cycle Variable, Menses 1-7 Days, Menses >/= 8 Days, Menses Variable, Cycle > 4 Weeks Between, No Menses for 6 Months, Heavy Menses, Light Menses, Normal Menses, Spotting Between Cycles , S/P Hysterectomy, Menopausal, Post Menopausal, Premenarche, Abnormal Vaginal Bleeding, Dysmenorrhea, Dyspareunia, Genital Lesions, Genital Pruritis, Pelvic Pain, Prolapse Symptoms, Sexual Dysfunction, Vaginal Discharge, Vaginal Dryness , Vaginal Odor, Vaginal Pruritis, Other - Menstruation Menstruation: absent: As Per HPI, Amenorrhea, Amenorrhea/ Control, Currently Menstual, Cycle <21 Days, Cycle >35 Days, Cycle Variable, Menses 1-7 Days, Menses >/= 8 Days, Menses Variable, Cycle > 4 Weeks Between, No Menses for 6 Months, Heavy Menses, Light Menses, Normal Menses, Spotting Between Cycles , S/P Hysterectomy, Menopausal, Post Menopausal, Premenarche, Abnormal Vaginal Bleeding, Dysmenorrhea, Other - Musculoskeletal Musculoskeletal: As Per HPI - Integumentary Integumentary: As Per HPI, Skin Pain, Wounds - Neurological Neurological: absent: As Per HPI, Abnormal Gait, Abnormal Hearing, Abnormal Movements, Abnormal Speech, Behavioral Changes, Burning Sensations, Confusion, Convulsions, Disequilibrium, Dizziness, Numbness, Focal Weakness, Frequent Falls , Headaches, Lack of Coordination, Loss of Vision, Memory Loss, Paresthesias, Radicular Pain, Restless Legs, Sensory Deficit, Syncope, Tingling, Tremor, Vertigo, Weakness, Other Visual Disturbances, Other - Psychiatric Psychiatric: absent: As Per HPI, Abnormal Sleep Pattern, Anhedonia, Anxiety, Auditory Hallucinations, Behavioral Changes, Change in Appetite, Change in Libido, Confusion, Depression, Difficulty Concentrating, Hallucinations, Homicidal Ideation, Hopelessness, Irritability, Memory Loss, Mood Swings, Panic Attacks, Paranoia, Suicidal Ideation, Visual Hallucinations, Tactile Hallucinations, Other - Endocrine Endocrine: absent: As Per HPI, Change in Body Appearance, Change in Libido, Cold Intolorance, Deepening of Voice, Excessive Sweating, Fatigue, Flushing, Heat Intolorance, Increase in Ring/Shoe/Hat Size, Palpitations, Polydipsia, Polyphagia, Polyuria, Other - Hematologic/Lymphatic Hematologic: absent: As Per HPI, Easy Bleeding, Easy Bruising, Lymphadenopathy, Other Past Patient History - Infectious Disease Hx of Infectious Diseases: None - Past Medical History & Family History Past Medical History?: Yes - Past Social History Smoking Status: Never Smoked - CARDIAC Hx Hypercholesterolemia: Yes Hx Hypertension: Yes - PULMONARY Hx Chronic Obstructive Pulmonary Disease (COPD): Yes Hx Pulmonary Embolism: No - NEUROLOGICAL Hx Neurological Disorder: Yes Hx Syncope: Yes - HEENT Hx HEENT Problems: No - RENAL Hx Chronic Kidney Disease: No - ENDOCRINE/METABOLIC Hx Endocrine Disorders: Yes Hx Diabetes Mellitus Type 1: Yes - HEMATOLOGICAL/ONCOLOGICAL Hx Anemia: Yes - INTEGUMENTARY Hx Dermatological Problems: No - MUSCULOSKELETAL/RHEUMATOLOGICAL Hx Arthritis: Yes (KNEE; BACK) Hx Falls: Yes - GASTROINTESTINAL Hx Gastrointestinal Disorders: Yes Hx Gastroesophageal Reflux: Yes - GENITOURINARY/GYNECOLOGICAL Hx Genitourinary Disorders: No - PSYCHIATRIC Hx Substance Use: No - SURGICAL HISTORY Hx Coronary Artery Bypass Graft: Yes (09/19) - ANESTHESIA Hx Anesthesia: Yes Hx Anesthesia Reactions: No Hx Malignant Hyperthermia: No Meds Allergies/Adverse Reactions: Allergies Allergy/AdvReac Type Severity Reaction Status Date / Time No Known Allergies Allergy Verified 05/20/17 09:51 Physical Exam - Constitutional Appears: Non-toxic, Chronically Ill - Head Exam Head Exam: NORMOCEPHALIC - Eye Exam Eye Exam: PERRL. absent: Scleral icterus - ENT Exam ENT Exam: Mucous Membranes Dry - Neck Exam Neck exam: Negative for: Lymphadenopathy - Respiratory Exam Respiratory Exam: Decreased Breath Sounds - Cardiovascular Exam Cardiovascular Exam: REGULAR RHYTHM, +S1, +S2 - GI/Abdominal Exam GI & Abdominal Exam: Diminished Bowel Sounds, Soft. absent: Tenderness - Rectal Exam Rectal Exam: Deferred - Exam Exam: NORMAL INSPECTION - Extremities Exam Extremities exam: Positive for: tenderness. Negative for: calf tenderness, pedal edema, pedal pulses present Additional comments: dry ulcer right lateral foor no pus - Back Exam Back exam: absent: CVA tenderness (L), CVA tenderness (R) - Neurological Exam Neurological exam: Alert, CN II-XII Intact, Oriented x3, Reflexes Normal - Psychiatric Exam Psychiatric exam: Normal Mood - Skin Skin Exam: Dry, Intact Results - Vital Signs Recent Vital Signs: Last Vital Signs Temp 98.3 F 02/19/18 07:00 Pulse 94 H 02/19/18 07:24 Resp 18 02/19/18 07:00 BP 142/77 02/19/18 09:44 Pulse Ox 96 02/19/18 07:00 - Labs Result Diagrams: 02/17/18 18:45 02/17/18 18:45 Labs: Laboratory Results - last 24 hr 02/18/18 02/18/18 02/18/18 17:07 20:58 22:30 POC Glucose (mg/dL) 197 H 211 H Iron TIBC % Saturation Ferritin Urine Color Yellow Urine Clarity Clear Urine pH 7.0 Ur Specific [place] 1.013 Urine Protein 3+ H Urine Glucose (UA) 2+ H Urine Ketones Negative Urine Blood 1+ H Urine Nitrate Negative Urine Bilirubin Negative Urine Urobilinogen Normal Ur Leukocyte Esterase Neg Urine WBC (Auto) 1 Urine RBC (Auto) 5 H Urine Bacteria Rare Complement C3 Complement C4 02/19/18 02/19/18 02/19/18 06:11 07:45 07:45 POC Glucose (mg/dL) 138 H Iron 47 TIBC 184 L % Saturation 25 Ferritin Urine Color Urine Clarity Urine pH Ur Specific [place] Urine Protein Urine Glucose (UA) Urine Ketones Urine Blood Urine Nitrate Urine Bilirubin Urine Urobilinogen Ur Leukocyte Esterase Urine WBC (Auto) Urine RBC (Auto) Urine Bacteria Complement C3 137.0 Complement C4 84.3 H 02/19/18 02/19/18 07:45 11:16 POC Glucose (mg/dL) 270 H Iron TIBC % Saturation Ferritin 134.0 Urine Color Urine Clarity Urine pH Ur Specific [place] Urine Protein Urine Glucose (UA) Urine Ketones Urine Blood Urine Nitrate Urine Bilirubin Urine Urobilinogen Ur Leukocyte Esterase Urine WBC (Auto) Urine RBC (Auto) Urine Bacteria Complement C3 Complement C4 Assessment & Plan (1) BLAYNE (acute kidney injury) Status: Acute (2) Hypertension Status: Chronic (3) CKD (chronic kidney disease) Status: Acute (4) Diabetes mellitus Status: Acute (5) Non-healing ulcer of foot Status: Acute (6) PVD (peripheral vascular disease) Status: Acute (7) Renal insufficiency Status: Acute (8) Diabetes mellitus type 2 in nonobese Status: Chronic - Assessment and Plan (Free Text) Plan: severe PVD and BLAYNE in a diabetic female with hx CAD DM PVD and CKD for vascular eval and possible intervention Dr Haddad on consult
--- NOTE | 2018-02-19 13:55 | CP.PCM.PN ---
Subjective - Date & Time of Evaluation Date of Evaluation: 02/19/18 Time of Evaluation: 08:00 - Subjective Subjective: 52 yr old female w/ hx of L illiac stent, DM, HTN, CABG, CAD presents from Dr. Mcgowan ([facility]) office for eval of HTN, Headache. Per Dr. Mcgowan pt has had WHITE and elevated pressures and requires admission and workup. Pt notes headache x2d, not worst of life, not sudden in onset and not associated with any FND. - Medical History PMH: Anemia, Arthritis (KNEE; BACK), CAD, COPD, Diabetes, HTN, Hypercholesterolemia Denies: Pulmonary Embolism, Chronic Kidney Disease Surgical History: CABG (09/19) - [facility] Procedures ASSIST WITH CARDIAC OUTPUT USING BALLOON PUMP, INTERMITTENT (08/31/15) DILATION OF R FEM ART WITH DRUG-ELUT INTRA, PERC APPROACH (01/19/18) DILATION OF RIGHT ANTERIOR TIBIAL ARTERY, PERC APPROACH (01/19/18) DILATION OF RIGHT FEMORAL ARTERY, PERCUTANEOUS APPROACH (01/19/18) DILATION OF RIGHT PERONEAL ARTERY, PERCUTANEOUS APPROACH (01/19/18) EXCISION OF DUODENUM, ENDO, DIAGN (06/07/16) EXCISION OF STOMACH, ENDO, DIAGN (06/07/16) FLUOROSCOPY OF LEFT HEART USING LOW OSMOLAR CONTRAST (08/31/15) FLUOROSCOPY OF MULT COR ART USING L OSM CONTRAST (08/31/15) MEASURE OF CARDIAC SAMPL & PRESSURE, L HEART, PERC APPROACH (08/31/15) TRANSFUSE NONAUT RED BLOOD CELLS IN PERIPH VEIN, PERC (03/13/15) TRANSFUSE NONAUT WHOLE BLOOD IN PERIPH VEIN, PERC (03/11/16 Objective - Vital Signs/Intake and Output Vital Signs (last 24 hours): Temp Pulse Resp BP Pulse Ox 98.3 F 94 H 18 142/77 96 02/19/18 07:00 02/19/18 07:24 02/19/18 07:00 02/19/18 09:44 02/19/18 07:00 Intake and Output: 02/19/18 02/19/18 06:59 18:59 Intake Total 400 Balance 400 - Medications Medications: Current Medications Albuterol (Ventolin Hfa 90 Mcg/Actuation (8 G)) 1 puff IH RQID PRN PRN Reason: Wheezing Last Admin: 02/18/18 19:35 Dose: 1 puff Amlodipine Besylate (Norvasc) 10 mg PO DAILY [facility] BEDS [facility] Last Admin: 02/19/18 09:44 Dose: 10 mg Aspirin (Ecotrin) 81 mg PO DAILY [facility]CLUDE 234 BEDS AT [facility] Last Admin: 02/19/18 09:45 Dose: 81 mg Carvedilol (Coreg) 12.5 mg PO BID [facility] 234 BEDS AT [facility] Last Admin: 02/19/18 09:44 Dose: 12.5 mg Cyclobenzaprine HCl (Flexeril) 10 mg PO Q8 PRN PRN Reason: Muscle spasm Ferrous Sulfate (Feosol) 325 mg PO TID [facility]CLUDE 234 BEDS AT [facility] Last Admin: 02/19/18 13:20 Dose: 325 mg Gabapentin (Neurontin) 100 mg PO TID [facility] 234 BEDS AT [facility] Last Admin: 02/19/18 13:20 Dose: 100 mg Heparin Sodium (Porcine) (Heparin) 5,000 units SC Q8 [facility]CLUDE 234 BEDS AT [facility] Last Admin: 02/19/18 13:20 Dose: 5,000 units Hydralazine HCl (Apresoline) 50 mg PO Q12H [facility]CLUDE 234 BEDS AT [facility] Last Admin: 02/19/18 06:02 Dose: 50 mg Ibuprofen (Motrin Tab) 600 mg PO Q6 PRN PRN Reason: Pain, moderate (4-7) Insulin Aspart (Novolog) 0 unit SC ACHS [facility]S INCLUDE 234 BEDS AT [facility] PRN Reason: Protocol Last Admin: 02/19/18 12:25 Dose: 6 units Insulin Glargine (Lantus) 24 unit SC [facility] Last Admin: 02/18/18 22:57 Dose: 24 u Metformin [facility] ([facility]ucophage) [facility] Pantoprazole Sodium (Protonix Ec Tab) 40 mg PO DAILY [facility] 234 BEDS AT [facility] Last Admin: 02/19/18 09:45 Dose: 40 mg Rosuvastatin Calcium (Crestor) 5 mg PO HS [facility]CLUDE 234 BEDS AT [facility] Last Admin: 02/17/18 22:38 Dose: 5 mg Fluticasone/Salmeterol (Advair Diskus 500/50) 1 puff INH RQ12 [facility]CLUDE 234 BEDS AT [facility] Last Admin: 02/19/18 07:50 Dose: 1 puff Vitamin B Complex/Vit C/Folic Acid (Nephro-Vince) 1 tab PO 0800 [facility]S [facility]CLUDE 234 BEDS AT [facility] Last Admin: 02/19/18 09:45 Dose: 1 tab - Labs Labs: 02/17/18 18:45 02/17/18 18:45 - Constitutional Appears: Non-toxic, Chronically Ill - Head Exam Head Exam: NORMOCEPHALIC - Eye Exam Eye Exam: PERRL - ENT Exam ENT Exam: Mucous Membranes Dry - Neck Exam Neck Exam: absent: Lymphadenopathy - Respiratory Exam Respiratory Exam: Decreased Breath Sounds - Cardiovascular Exam Cardiovascular Exam: REGULAR RHYTHM - GI/Abdominal Exam GI & Abdominal Exam: Distended, Soft - Rectal Exam Rectal Exam: Deferred - Exam Exam: NORMAL INSPECTION Assessment and Plan (1) BLAYNE (acute kidney injury) Status: Acute (2) Hypertension Status: Chronic (3) CKD (chronic kidney disease) Status: Acute (4) Diabetes mellitus Status: Acute (5) Non-healing ulcer of foot Status: Acute (6) PVD (peripheral vascular disease) Status: Acute (7) Renal insufficiency Status: Acute (8) Diabetes mellitus type 2 in nonobese Status: Chronic - Assessment and Plan (Free Text) Assessment: dr stephenie feliciano
--- NOTE | 2018-02-19 20:46 | CP.PCM.CON ---
History of Present Illness - History of Present Illness History of Present Illness: Reason for consultation: CAD, htn HPI 52 y/o F patient PMH DM, COPD, Ischemic heart disease,diabetic neuropathy and HTN seen and evaluated at bedside for right foot ulceration. Patient sates that last Tuesday she underwent revascularization of her left LE, Patient states that she has the ulcer on the outside of her right foot since 1 month. She states that it's healing. patient states that it's painful. She states that the pain might go up 6-7/10 on VAS scale. She states that it's painful to touch. Patient Denies of any trauma or incident. Patient denies any drainage or malodorat the wound site. She denies any recent F/N/V/C or SOB. She states that she has tingling and numbness all the time in her feet. Patient denies any other pedal complaint at this time Past Patient History - Infectious Disease Hx of Infectious Diseases: None - Past Medical History & Family History Past Medical History?: Yes - Past Social History Smoking Status: Never Smoked - CARDIAC Hx Hypercholesterolemia: Yes Hx Hypertension: Yes - PULMONARY Hx Chronic Obstructive Pulmonary Disease (COPD): Yes Hx Pulmonary Embolism: No - NEUROLOGICAL Hx Neurological Disorder: Yes Hx Syncope: Yes - HEENT Hx HEENT Problems: No - RENAL Hx Chronic Kidney Disease: No - ENDOCRINE/METABOLIC Hx Endocrine Disorders: Yes Hx Diabetes Mellitus Type 1: Yes - HEMATOLOGICAL/ONCOLOGICAL Hx Anemia: Yes - INTEGUMENTARY Hx Dermatological Problems: No - MUSCULOSKELETAL/RHEUMATOLOGICAL Hx Arthritis: Yes (KNEE; BACK) Hx Falls: Yes - GASTROINTESTINAL Hx Gastrointestinal Disorders: Yes Hx Gastroesophageal Reflux: Yes - GENITOURINARY/GYNECOLOGICAL Hx Genitourinary Disorders: No - PSYCHIATRIC Hx Substance Use: No - SURGICAL HISTORY Hx Coronary Artery Bypass Graft: Yes (09/19) - ANESTHESIA Hx Anesthesia: Yes Hx Anesthesia Reactions: No Hx Malignant Hyperthermia: No Meds Allergies/Adverse Reactions: Allergies Allergy/AdvReac Type Severity Reaction Status Date / Time No Known Allergies Allergy Verified 05/20/17 09:51 - Medications Medications: Current Medications Albuterol (Ventolin Hfa 90 Mcg/Actuation (8 G)) 1 puff IH RQID PRN PRN Reason: Wheezing Last Admin: 02/18/18 19:35 Dose: 1 puff Amlodipine Besylate (Norvasc) 10 mg PO DAILY [facility] Last Admin: 02/19/18 09:44 Dose: 10 mg Aspirin (Ecotrin) 81 mg PO DAILY [facility] Last Admin: 02/19/18 09:45 Dose: 81 mg Carvedilol (Coreg) 12.5 mg PO BID [facility] Last Admin: 02/19/18 17:38 Dose: 12.5 mg Cyclobenzaprine HCl (Flexeril) 10 mg PO Q8 PRN PRN Reason: Muscle spasm Ferrous Sulfate (Feosol) 325 mg PO TID [facility] Last Admin: 02/19/18 13:20 Dose: 325 mg Gabapentin (Neurontin) 100 mg PO TID [facility] Last Admin: 02/19/18 17:38 Dose: 100 mg Heparin Sodium (Porcine) (Heparin) 5,000 units SC Q8 [facility] Last Admin: 02/19/18 13:20 Dose: 5,000 units Hydralazine HCl (Apresoline) 50 mg PO Q12H [facility] Last Admin: 02/19/18 17:38 Dose: 50 mg Ibuprofen (Motrin Tab) 600 mg PO Q6 PRN PRN Reason: Pain, moderate (4-7) Insulin Aspart (Novolog) 0 unit SC ACHS [facility] PRN Reason: Protocol Last Admin: 02/19/18 17:00 Dose: Not Given Insulin Glargine (Lantus) 24 unit SC [facility] Last Admin: 02/18/18 22:57 Dose: 24 u Metformin HCl (Glucophage) 1,000 mg PO BIDCC [facility] Pantoprazole Sodium (Protonix Ec Tab) 40 mg PO DAILY [facility] Last Admin: 02/19/18 09:45 Dose: 40 mg Rosuvastatin Calcium (Crestor) 5 mg PO HS [facility] Last Admin: 02/17/18 22:38 Dose: 5 mg Fluticasone/Salmeterol (Advair Diskus 500/50) 1 puff INH RQ12 [facility] Last Admin: 02/19/18 20:20 Dose: 1 puff Vitamin B Complex/Vit C/Folic Acid (Nephro-Vince) 1 tab PO 0800 [facility] Last Admin: 02/19/18 09:45 Dose: 1 tab Results - Vital Signs Recent Vital Signs: Last Vital Signs Temp 98.3 F 02/19/18 15:50 Pulse 84 02/19/18 15:50 Resp 20 02/19/18 15:50 BP 138/78 02/19/18 17:38 Pulse Ox 96 02/19/18 15:50 - Labs Result Diagrams: 02/17/18 18:45 02/17/18 18:45 Labs: Laboratory Results - last 24 hr 02/18/18 02/18/18 02/19/18 20:58 22:30 06:11 POC Glucose (mg/dL) 211 H 138 H Iron TIBC % Saturation Ferritin Urine Color Yellow Urine Clarity Clear Urine pH 7.0 Ur Specific Merrick 1.013 Urine Protein 3+ H Urine Glucose (UA) 2+ H Urine Ketones Negative Urine Blood 1+ H Urine Nitrate Negative Urine Bilirubin Negative Urine Urobilinogen Normal Ur Leukocyte Esterase Neg Urine WBC (Auto) 1 Urine RBC (Auto) 5 H Urine Bacteria Rare Complement C3 Complement C4 02/19/18 02/19/18 02/19/18 07:45 07:45 07:45 POC Glucose (mg/dL) Iron 47 TIBC 184 L % Saturation 25 Ferritin 134.0 Urine Color Urine Clarity Urine pH Ur Specific Merrick Urine Protein Urine Glucose (UA) Urine Ketones Urine Blood Urine Nitrate Urine Bilirubin Urine Urobilinogen Ur Leukocyte Esterase Urine WBC (Auto) Urine RBC (Auto) Urine Bacteria Complement C3 137.0 Complement C4 84.3 H 02/19/18 02/19/18 11:16 17:19 POC Glucose (mg/dL) 270 H 106 Iron TIBC % Saturation Ferritin Urine Color Urine Clarity Urine pH Ur Specific Merrick Urine Protein Urine Glucose (UA) Urine Ketones Urine Blood Urine Nitrate Urine Bilirubin Urine Urobilinogen Ur Leukocyte Esterase Urine WBC (Auto) Urine RBC (Auto) Urine Bacteria Complement C3 Complement C4 Assessment & Plan - Assessment and Plan (Free Text) Assessment: uncontrolled HTN CAD CKD stage3 T2dm PVD Plan: Orders written Renal, vascular work up - Date & Time Date: 02/18/18 Time: 10:00
--- NOTE | 2018-02-19 20:51 | CP.PCM.PN ---
Subjective - Date & Time of Evaluation Date of Evaluation: 02/19/18 Time of Evaluation: 12:00 - Subjective Subjective: feels better today no chest pain NAD Objective - Vital Signs/Intake and Output Vital Signs (last 24 hours): Temp Pulse Resp BP Pulse Ox 98.3 F 84 20 138/78 96 02/19/18 15:50 02/19/18 15:50 02/19/18 15:50 02/19/18 17:38 02/19/18 15:50 - Medications Medications: Current Medications Albuterol (Ventolin Hfa 90 Mcg/Actuation (8 G)) 1 puff IH RQID PRN PRN Reason: Wheezing Last Admin: 02/18/18 19:35 Dose: 1 puff Amlodipine Besylate (Norvasc) 10 mg PO DAILY [facility] Last Admin: 02/19/18 09:44 Dose: 10 mg Aspirin (Ecotrin) 81 mg PO DAILY [facility] Last Admin: 02/19/18 09:45 Dose: 81 mg Carvedilol (Coreg) 12.5 mg PO BID [facility] Last Admin: 02/19/18 17:38 Dose: 12.5 mg Cyclobenzaprine HCl (Flexeril) 10 mg PO Q8 PRN PRN Reason: Muscle spasm Ferrous Sulfate (Feosol) 325 mg PO TID [facility] Last Admin: 02/19/18 13:20 Dose: 325 mg Gabapentin (Neurontin) 100 mg PO TID [facility] Last Admin: 02/19/18 17:38 Dose: 100 mg Heparin Sodium (Porcine) (Heparin) 5,000 units SC Q8 [facility] Last Admin: 02/19/18 13:20 Dose: 5,000 units Hydralazine HCl (Apresoline) 50 mg PO Q12H [facility] Last Admin: 02/19/18 17:38 Dose: 50 mg Ibuprofen (Motrin Tab) 600 mg PO Q6 PRN PRN Reason: Pain, moderate (4-7) Insulin Aspart (Novolog) 0 unit SC ACHS [facility] PRN Reason: Protocol Last Admin: 02/19/18 17:00 Dose: Not Given Insulin Glargine (Lantus) 24 unit SC HS [facility] Last Admin: 02/18/18 22:57 Dose: 24 u Metformin [facility] ([facility]) [facility] Pantoprazole Sodium (Protonix Ec Tab) 40 mg PO DAILY [facility] Last Admin: 02/19/18 09:45 Dose: 40 mg Rosuvastatin Calcium (Crestor) 5 mg PO HS [facility] Last Admin: 02/17/18 22:38 Dose: 5 mg Fluticasone/Salmeterol (Advair Diskus 500/50) 1 puff INH RQ12 [facility] Last Admin: 02/19/18 20:20 Dose: 1 puff Vitamin B Complex/Vit C/Folic Acid (Nephro-Vince) 1 tab PO 0800 [facility] Last Admin: 02/19/18 09:45 Dose: 1 tab - Labs Labs: 02/17/18 18:45 02/17/18 18:45 - Constitutional Appears: Non-toxic - Head Exam Head Exam: NORMAL INSPECTION - Eye Exam Eye Exam: absent: Scleral icterus - ENT Exam ENT Exam: Mucous Membranes Moist - Neck Exam Neck Exam: Full ROM - Respiratory Exam Respiratory Exam: NORMAL BREATHING PATTERN - Cardiovascular Exam Cardiovascular Exam: REGULAR RHYTHM - GI/Abdominal Exam GI & Abdominal Exam: Soft - Extremities Exam Extremities Exam: Calf Tenderness, Pedal Edema Additional comments: +foot ulcer - Neurological Exam Neurological Exam: Alert, Oriented x3 Assessment and Plan - Assessment and Plan (Free Text) Assessment: CAD CKD PVD CKD stage 3 T2dm Plan: Vacular w/u Renal consults Orders written
[2018-02-19] MEDS: (Lantus) Insulin Glargine, Recombinant SC SCH (22:36)
[2018-02-20] MEDS: Multivitamin Vitamin B Complex (Nephro-Vite) Tab PO SCH (08:23)
[2018-02-20] MEDS: (Novolog) Insulin Aspart, Recombinant 100 u/ml 10 ml vial SC SCH ×4 (08:24→21:50)
[2018-02-20 09:24] LABS: HEPATITIS B SURFACE AG Negative (NEGATIVE)
[2018-02-20 09:27] LABS: U CREAT 24HOUR URINE 868.8 mg/24hr (800-2800); URINE CREATININE 58.9 mg/dL
[2018-02-20 09:28] LABS: URINE CREATININE 59.2 mg/dL
[2018-02-20 09:30] LABS: HEPATITIS A IGM NEGATIVE (NEGATIVE); HEPATITIS B CORE AB NEGATIVE (NEGATIVE)
[2018-02-20] MEDS: Pantoprazole 40 mg EC Tab PO SCH (09:41)
[2018-02-20 09:42] LABS: HEPATITIS C ANTIBODY NEGATIVE (NEGATIVE)
[2018-02-20 09:52] LABS: URINE 24 HOUR TOTAL PROTEIN 16446.3 mg/24hr (42-225)
--- NOTE | 2018-02-20 10:58 | CP.PCM.PN ---
Subjective - Date & Time of Evaluation Date of Evaluation: 02/20/18 Time of Evaluation: 10:57 - Subjective Subjective: pt is seen and examined, follow up consult is dictated #[id number] 1. 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 htn 3. Freddie on ckd-4 avoid nephrotoxic agents agree to hold metformin d/c NSAIDS may need avf if renal function does not improve for future hd Objective - Vital Signs/Intake and Output Vital Signs (last 24 hours): Temp Pulse Resp BP Pulse Ox 98.5 F 91 H 20 112/59 L 96 02/20/18 07:00 02/20/18 09:40 02/20/18 07:00 02/20/18 09:40 02/20/18 07:00 Intake and Output: 02/20/18 02/20/18 06:59 18:59 Intake Total 450 Output Total 600 Balance -150 - Medications Medications: Current Medications Albuterol (Ventolin Hfa 90 Mcg/Actuation (8 G)) 1 puff IH RQID PRN PRN Reason: Wheezing Last Admin: 02/18/18 19:35 Dose: 1 puff Amlodipine Besylate (Norvasc) 10 mg PO DAILY [facility] Last Admin: 02/20/18 09:41 Dose: 10 mg Aspirin (Ecotrin) 81 mg PO DAILY [facility] Last Admin: 02/20/18 09:40 Dose: 81 mg Carvedilol (Coreg) 12.5 mg PO BID [facility] Last Admin: 02/20/18 09:40 Dose: 12.5 mg Cyclobenzaprine HCl (Flexeril) 10 mg PO Q8 PRN PRN Reason: Muscle spasm Ferrous Sulfate (Feosol) 325 mg PO TID [facility] Last Admin: 02/20/18 09:42 Dose: 325 mg Gabapentin (Neurontin) 100 mg PO TID [facility] Last Admin: 02/20/18 09:41 Dose: 100 mg Heparin Sodium (Porcine) (Heparin) 5,000 units SC Q8 [facility] Last Admin: 02/20/18 05:19 Dose: 5,000 units Hydralazine HCl (Apresoline) 50 mg PO Q12H [facility] Last Admin: 02/20/18 05:19 Dose: 50 mg Insulin Aspart (Novolog) 0 unit SC ACHS [facility] PRN Reason: Protocol Last Admin: 02/20/18 08:24 Dose: 2 units Insulin Glargine (Lantus) 24 unit SC HS [facility] Last Admin: 02/19/18 22:36 Dose: 24 u Metformin HCl (Glucophage) 1,000 mg PO BIDCC [facility] Pantoprazole Sodium (Protonix Ec Tab) 40 mg PO DAILY [facility] Last Admin: 02/20/18 09:41 Dose: 40 mg Rosuvastatin Calcium (Crestor) 5 mg PO HS [facility] Last Admin: 02/19/18 22:34 Dose: 5 mg Fluticasone/Salmeterol (Advair Diskus 500/50) 1 puff INH RQ12 [facility] Last Admin: 02/19/18 20:20 Dose: 1 puff Vitamin B Complex/Vit C/Folic Acid (Nephro-Vince) 1 tab PO 0800 [facility] Last Admin: 02/20/18 08:23 Dose: 1 tab - Labs Labs: 02/17/18 18:45 02/20/18 07:40
--- NOTE | 2018-02-20 11:05 | CP.PCM.PN ---
Subjective - Date & Time of Evaluation Date of Evaluation: 02/20/18 Time of Evaluation: 07:00 - Subjective Subjective: awat cardio eval vascular on board Objective - Vital Signs/Intake and Output Vital Signs (last 24 hours): Temp Pulse Resp BP Pulse Ox 98.5 F 91 H 20 112/59 L 96 02/20/18 07:00 02/20/18 09:40 02/20/18 07:00 02/20/18 09:40 02/20/18 07:00 Intake and Output: 02/20/18 02/20/18 06:59 18:59 Intake Total 450 Output Total 600 Balance -150 - Medications Medications: Current Medications Albuterol (Ventolin Hfa 90 Mcg/Actuation (8 G)) 1 puff IH RQID PRN PRN Reason: Wheezing Last Admin: 02/18/18 19:35 Dose: 1 puff Amlodipine Besylate (Norvasc) 10 mg PO DAILY [facility] Last Admin: 02/20/18 09:41 Dose: 10 mg Aspirin (Ecotrin) 81 mg PO DAILY [facility] Last Admin: 02/20/18 09:40 Dose: 81 mg Carvedilol (Coreg) 12.5 mg PO BID [facility] Last Admin: 02/20/18 09:40 Dose: 12.5 mg Cyclobenzaprine HCl (Flexeril) 10 mg PO Q8 PRN PRN Reason: Muscle spasm Ferrous Sulfate (Feosol) 325 mg PO TID [facility] Last Admin: 02/20/18 09:42 Dose: 325 mg Gabapentin (Neurontin) 100 mg PO TID [facility] Last Admin: 02/20/18 09:41 Dose: 100 mg Heparin Sodium (Porcine) (Heparin) 5,000 units SC Q8 [facility] Last Admin: 02/20/18 05:19 Dose: 5,000 units Hydralazine HCl (Apresoline) 50 mg PO Q12H [facility] Last Admin: 02/20/18 05:19 Dose: 50 mg Insulin Aspart (Novolog) 0 unit SC ACHS [facility] PRN Reason: Protocol Last Admin: 02/20/18 08:24 Dose: 2 units Insulin Glargine (Lantus) 24 unit SC HS [facility] Last Admin: 02/19/18 22:36 Dose: 24 u Metformin [facility] ([facility]) [facility] Pantoprazole Sodium (Protonix Ec Tab) 40 mg PO DAILY [facility] Last Admin: 02/20/18 09:41 Dose: 40 mg Rosuvastatin Calcium (Crestor) 5 mg PO HS [facility] Last Admin: 02/19/18 22:34 Dose: 5 mg Fluticasone/Salmeterol (Advair Diskus 500/50) 1 puff INH RQ12 [facility] Last Admin: 02/19/18 20:20 Dose: 1 puff Vitamin B Complex/Vit C/Folic Acid (Nephro-Vince) 1 tab PO 0800 [facility] Last Admin: 02/20/18 08:23 Dose: 1 tab - Labs Labs: 02/17/18 18:45 02/20/18 07:40 - Constitutional Appears: Non-toxic, Chronically Ill - Head Exam Head Exam: NORMOCEPHALIC - Eye Exam Eye Exam: PERRL - ENT Exam ENT Exam: Mucous Membranes Dry - Neck Exam Neck Exam: absent: Lymphadenopathy - Respiratory Exam Respiratory Exam: Decreased Breath Sounds - Cardiovascular Exam Cardiovascular Exam: REGULAR RHYTHM - GI/Abdominal Exam GI & Abdominal Exam: Distended Assessment and Plan (1) BLAYNE (acute kidney injury) Status: Acute (2) Hypertension Status: Chronic (3) CKD (chronic kidney disease) Status: Acute (4) Diabetes mellitus Status: Acute (5) Non-healing ulcer of foot Status: Acute (6) PVD (peripheral vascular disease) Status: Acute (7) Renal insufficiency Status: Acute (8) Diabetes mellitus type 2 in nonobese Status: Chronic
--- NOTE | 2018-02-20 15:33 | CP.PCM.PN ---
Subjective - Date & Time of Evaluation Date of Evaluation: 02/20/18 Time of Evaluation: 15:31 - Subjective Subjective: Podiatry Progress note: Dr. Mcmanus 52 year old female patient was evaluated this morning for right foot ulceration. Patient reports that she is not feeling too well due to her kidney condition. States that she maybe going for a procedure to put stents in her leg. Denies of any pain to the foot today. Denies of recent F/N/V/C/SOB/CP/headache. No other pedal complains. Objective - Vital Signs/Intake and Output Vital Signs (last 24 hours): Temp Pulse Resp BP Pulse Ox 98.5 F 95 H 20 112/59 L 96 02/20/18 07:00 02/20/18 12:00 02/20/18 07:00 02/20/18 09:40 02/20/18 07:00 Intake and Output: 02/20/18 02/20/18 06:59 18:59 Intake Total 450 400 Output Total 600 Balance -150 400 - Medications Medications: Current Medications Albuterol (Ventolin Hfa 90 Mcg/Actuation (8 G)) 1 puff IH RQID PRN PRN Reason: Wheezing Last Admin: 02/18/18 19:35 Dose: 1 puff Amlodipine Besylate (Norvasc) 10 mg PO DAILY [facility] Last Admin: 02/20/18 09:41 Dose: 10 mg Aspirin (Ecotrin) 81 mg PO DAILY [facility] Last Admin: 02/20/18 09:40 Dose: 81 mg Carvedilol (Coreg) 12.5 mg PO BID [facility] Last Admin: 02/20/18 09:40 Dose: 12.5 mg Cyclobenzaprine HCl (Flexeril) 10 mg PO Q8 PRN PRN Reason: Muscle spasm Ferrous Sulfate (Feosol) 325 mg PO TID [facility] Last Admin: 02/20/18 14:28 Dose: 325 mg Gabapentin (Neurontin) 100 mg PO TID [facility] Last Admin: 02/20/18 14:28 Dose: 100 mg Heparin Sodium (Porcine) (Heparin) 5,000 units SC Q8 [facility] Last Admin: 02/20/18 14:28 Dose: 5,000 units Hydralazine HCl (Apresoline) 50 mg PO Q12H [facility] Last Admin: 02/20/18 05:19 Dose: 50 mg Insulin Aspart (Novolog) 0 unit SC ACHS [facility] PRN Reason: Protocol Last Admin: 02/20/18 12:04 Dose: 6 units Insulin Glargine (Lantus) 24 unit SC [facility] Last Admin: 02/19/18 22:36 Dose: 24 u Metformin HCl (Glucophage) 1,000 mg PO BIDCC [facility] Pantoprazole Sodium (Protonix Ec Tab) 40 mg PO DAILY [facility] Last Admin: 02/20/18 09:41 Dose: 40 mg Rosuvastatin Calcium (Crestor) 5 mg PO HS [facility] Last Admin: 02/19/18 22:34 Dose: 5 mg Fluticasone/Salmeterol (Advair Diskus 500/50) 1 puff INH RQ12 [facility] Last Admin: 02/19/18 20:20 Dose: 1 puff Vitamin B Complex/Vit C/Folic Acid (Nephro-Vince) 1 tab PO 0800 [facility] Last Admin: 02/20/18 08:23 Dose: 1 tab - Labs Labs: 02/17/18 18:45 02/20/18 07:40 - Constitutional Appears: Well, Non-toxic, No Acute Distress - Extremities Exam Additional comments: LE focused exam: VASC: DP/PT non-palpable b/l, temperature gradient warm to cool from proximal to distal b/l, Cap refill delayed to digits > 4 sec, no edema noted b/l. NEURO: Gross sensation intact, Protective sensation diminished DERM:Kye circular ulceration noted to the lateral aspect of 5th metatarsal base measuring approximately 0.5 cm in diameter with no depth. No drainage, No erythema, No fluctanance noted, No streaking. Ulcer is surrounded by hyperkeratotic area. No clinical signs of infection. MSK: Pain on palpating at site of ulceration. - Neurological Exam Neurological Exam: Alert, Awake, Oriented x3 - Psychiatric Exam Psychiatric exam: Normal Affect, Normal Mood Assessment and Plan - Assessment and Plan (Free Text) Assessment: 52 year old female with stable non-infected right foot ulceration Plan: Patient seen and evaluated Discussed plan in detail with attending Dr Marietta Pink, charts reviewed; Afebrile Ulcer appears non-infected clinically at this time Ulcer dressed with betadine, DSD Stable from podiatry standpoint Will continue to follow up patient while in house
[2018-02-20] MEDS: (Lantus) Insulin Glargine, Recombinant SC SCH (21:50)
--- NOTE | 2018-02-20 22:49 | CP.PCM.PN ---
Subjective - Date & Time of Evaluation Date of Evaluation: 02/20/18 Time of Evaluation: 08:15 - Subjective Subjective: feeling much better bp 131/79 no sob no chest pain Objective - Vital Signs/Intake and Output Vital Signs (last 24 hours): Temp Pulse Resp BP Pulse Ox 98.1 F 88 20 137/75 97 02/20/18 15:00 02/20/18 16:00 02/20/18 15:00 02/20/18 17:53 02/20/18 15:00 Intake and Output: 02/20/18 02/21/18 18:59 06:59 Intake Total 400 Balance 400 - Medications Medications: Current Medications Albuterol (Ventolin Hfa 90 Mcg/Actuation (8 G)) 1 puff IH RQID PRN PRN Reason: Wheezing Last Admin: 02/18/18 19:35 Dose: 1 puff Amlodipine Besylate (Norvasc) 10 mg PO DAILY [facility] Last Admin: 02/20/18 09:41 Dose: 10 mg Aspirin (Ecotrin) 81 mg PO DAILY [facility] Last Admin: 02/20/18 09:40 Dose: 81 mg Carvedilol (Coreg) 12.5 mg PO BID [facility] Last Admin: 02/20/18 17:53 Dose: 12.5 mg Cyclobenzaprine HCl (Flexeril) 10 mg PO Q8 PRN PRN Reason: Muscle spasm Ferrous Sulfate (Feosol) 325 mg PO TID [facility] Last Admin: 02/20/18 17:52 Dose: 325 mg Gabapentin (Neurontin) 100 mg PO TID [facility] Last Admin: 02/20/18 17:52 Dose: 100 mg Heparin Sodium (Porcine) (Heparin) 5,000 units SC Q8 [facility] Last Admin: 02/20/18 21:50 Dose: 5,000 units Hydralazine HCl (Apresoline) 50 mg PO Q12H [facility] Last Admin: 02/20/18 17:53 Dose: 50 mg Insulin Aspart (Novolog) 0 unit SC ACHS [facility] PRN Reason: Protocol Last Admin: 02/20/18 21:50 Dose: 2 units Insulin Glargine (Lantus) 24 unit SC HS [facility] Last Admin: 02/20/18 21:50 Dose: 24 u [facility] ([facility]) [facility] Pantoprazole Sodium (Protonix Ec Tab) 40 mg PO DAILY [facility] Last Admin: 02/20/18 09:41 Dose: 40 mg Rosuvastatin Calcium (Crestor) 5 mg PO HS [facility] Last Admin: 02/20/18 21:50 Dose: 5 mg Fluticasone/Salmeterol (Advair Diskus 500/50) 1 puff INH RQ12 [facility] Last Admin: 02/19/18 20:20 Dose: 1 puff Vitamin B Complex/Vit C/Folic Acid (Nephro-Vince) 1 tab PO 0800 [facility] Last Admin: 02/20/18 08:23 Dose: 1 tab - Labs Labs: 02/17/18 18:45 02/20/18 07:40 - Constitutional Appears: Non-toxic - Head Exam Head Exam: NORMAL INSPECTION - Eye Exam Eye Exam: absent: Scleral icterus Pupil Exam: PERRL - ENT Exam ENT Exam: Mucous Membranes Moist - Neck Exam Neck Exam: Full ROM - Respiratory Exam Respiratory Exam: Decreased Breath Sounds - Cardiovascular Exam Cardiovascular Exam: REGULAR RHYTHM - GI/Abdominal Exam GI & Abdominal Exam: Soft - Extremities Exam Extremities Exam: absent: Pedal Edema - Neurological Exam Neurological Exam: Alert, Awake, Oriented x3 Assessment and Plan - Assessment and Plan (Free Text) Assessment: HTN CAD PVD CKD stage3 T2dm Plan: Vascular work up Cont meds Renal follow up
--- NOTE | 2018-02-21 02:51 | PN ---
DATE: 02/20/2018 LOCATION: The patient is located in room 660, bed B. REQUESTED BY: Carlos Haddad MD REASON FOR FOLLOWUP: Acute renal failure, chronic kidney disease for further evaluation, and massive proteinuria. HISTORY OF PRESENT ILLNESS: Mrs. Orozco is a 52-year-old middle-aged [place]er female with a history of longstanding hypertension, diabetes, diabetic retinopathy, proteinuria, chronic kidney disease, peripheral vascular disease, CAD, status post CABG who was admitted with headache, right-sided body pain. The patient is not in distress, still complains of occasional headache and pain on the right side and the back. No chest pain. No palpitation. No nausea, vomiting, diarrhea. No abdominal pain. No dysuria or frequency. PHYSICAL EXAMINATION: VITAL SIGNS: As follows: This morning, blood pressure 112/59, pulse 91, respirations about 20, temperature of 98.1, saturation 97%. Height 5 feet 5 inches and weight is 132 pounds. GENERAL: Mrs. Sprague is a 52-year-old female, moderately built, moderately nourished, not in acute distress. HEENT: Pupils normal and reactive to light and accommodation. Conjunctivae pink. Sclerae anicteric. Tongue is moist. Trachea is midline. LUNGS: Symmetric on both sides. Bilateral breath sounds present. Clear to auscultation. CVS: [place] at the fifth intercostal space, midclavicular line. S1, S2 audible. No murmur or gallop. ABDOMEN: Normal in appearance. Soft, tympanic. No guarding. No rigidity. No hepatosplenomegaly. CREDIT CARD ANALYST: The patient is alert, awake, oriented x3. Nonfocal neuro examination. Cranial nerves II through XII grossly intact. Sensory and motor system is within normal limits. EXTREMITIES: No cyanosis, no clubbing, no edema. The patient has a dressing to the right foot lateral border. CURRENT MEDICATIONS: Include as follows: Advair inhaler every 12 hours, hydralazine 50 mg p.o. every 12 hours, Coreg 12.5 mg p.o. b.i.d., Crestor 5 mg p.o. at bedtime, aspirin 81 mg daily, Feosol 325 mg p.o. t.i.d. Flexeril 10 mg p.o. every 8 hours p.r.n., metformin on hold, and subcu heparin 5000 units every 8 hours, Lantus 24 units subcu at bedtime, Nephro-Vince 1 tablet p.o. daily, gabapentin 100 mg p.o. t.i.d., amlodipine 10 mg daily NovoLog for sliding scale, Protonix 40 mg p.o. daily, and albuterol inhaler. LABORATORY DATA: Include as follows: As of 02/20/2018, serum creatinine 3.3; 24-hour urine volume is 1475, 24-hour urine creatinine is 868.8 mg, 24-hour urine protein is 6.44 g and creatinine clearance is 18 mL/minute. Other laboratory data: RAISA is negative; C3 is 137, normal; C4 is 84.3, normal. Hepatitis A antibody IgM is negative. Hepatitis B surface antigen negative, hepatitis B core antibody IgM is negative. Hepatitis C antibody is negative. IMPRESSION: In summary, Mrs. Orozco is a 52-year-old middle-aged [place] female with a history of hypertension, diabetes, coronary artery disease, status post coronary artery bypass grafting, proteinuria with renal failure, worsening renal function with a baseline creatinine about 2 to 2.5, on metformin and nonsteroids p.r.n. with increased serum creatinine of 23.3. 1. Acute renal failure, on chronic kidney disease stage IV. 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 2. Nephrotic range proteinuria. 3. Uncontrolled hypertension. Blood pressure is now better. Continue hydralazine, Norvasc, and Coreg. Discontinue non-steroids and agree to hold metformin. Repeat BMP in a.m. and continue to monitor BMP and renal function. Avoid nephrotoxic agent, avoid contrast. We will follow with you. Thank you for allowing me to participate in your patient's care. All the serological workup is within normal limits. Vasiliy Emery MD JOSIE
[2018-02-21] MEDS: Fluticasone-Salmeterol 500-50mcg Diskus INH SCH ×2 (08:06→19:23)
[2018-02-21] MEDS: Multivitamin Vitamin B Complex (Nephro-Vite) Tab PO SCH (08:26)
[2018-02-21] MEDS: (Novolog) Insulin Aspart, Recombinant 100 u/ml 10 ml vial SC SCH ×4 (08:26→21:49)
--- NOTE | 2018-02-21 10:12 | CP.PCM.PN ---
Subjective - Date & Time of Evaluation Date of Evaluation: 02/21/18 Time of Evaluation: 10:11 - Subjective Subjective: pt is seen and examined, follow up consult is dictated #[id number] Objective - Vital Signs/Intake and Output Vital Signs (last 24 hours): Temp Pulse Resp BP Pulse Ox 98.5 F 92 H 20 127/68 97 02/21/18 07:00 02/21/18 07:00 02/21/18 07:00 02/21/18 07:00 02/21/18 07:00 - Medications Medications: Current Medications Albuterol (Ventolin Hfa 90 Mcg/Actuation (8 G)) 1 puff IH RQID PRN PRN Reason: Wheezing Last Admin: 02/18/18 19:35 Dose: 1 puff Amlodipine Besylate (Norvasc) 10 mg PO DAILY [facility] Last Admin: 02/20/18 09:41 Dose: 10 mg Aspirin (Ecotrin) 81 mg PO DAILY [facility] Last Admin: 02/20/18 09:40 Dose: 81 mg Carvedilol (Coreg) 12.5 mg PO BID [facility] Last Admin: 02/20/18 17:53 Dose: 12.5 mg Cyclobenzaprine HCl (Flexeril) 10 mg PO Q8 PRN PRN Reason: Muscle spasm Ferrous Sulfate (Feosol) 325 mg PO TID [facility] Last Admin: 02/20/18 17:52 Dose: 325 mg Gabapentin (Neurontin) 100 mg PO TID [facility] Last Admin: 02/20/18 17:52 Dose: 100 mg Heparin Sodium (Porcine) (Heparin) 5,000 units SC Q8 [facility] Last Admin: 02/21/18 06:39 Dose: 5,000 units Hydralazine HCl (Apresoline) 50 mg PO Q12H [facility] Last Admin: 02/21/18 05:40 Dose: 50 mg Insulin Aspart (Novolog) 0 unit SC ACHS [facility] PRN Reason: Protocol Last Admin: 02/21/18 08:26 Dose: 4 units Insulin Glargine (Lantus) 24 unit SC HS [facility] Last Admin: 02/20/18 21:50 Dose: 24 u Metformin HCl (Glucophage) 1,000 mg PO BIDCC [facility] Pantoprazole Sodium (Protonix Ec Tab) 40 mg PO DAILY [facility] Last Admin: 02/20/18 09:41 Dose: 40 mg Rosuvastatin Calcium (Crestor) 5 mg PO HS [facility] Last Admin: 02/20/18 21:50 Dose: 5 mg Fluticasone/Salmeterol (Advair Diskus 500/50) 1 puff INH RQ12 [facility] Last Admin: 02/21/18 08:06 Dose: 1 puff Vitamin B Complex/Vit C/Folic Acid (Nephro-Vince) 1 tab PO 0800 [facility] Last Admin: 02/21/18 08:26 Dose: 1 tab - Labs Labs: 02/17/18 18:45 02/20/18 07:40
[2018-02-21] MEDS: Pantoprazole 40 mg EC Tab PO SCH (10:20)
--- NOTE | 2018-02-21 11:13 | CP.PCM.PN ---
Subjective - Date & Time of Evaluation Date of Evaluation: 02/21/18 Time of Evaluation: 09:00 - Subjective Subjective: no fever or chills await renal clearance for vascular procedure Objective - Vital Signs/Intake and Output Vital Signs (last 24 hours): Temp Pulse Resp BP Pulse Ox 98.5 F 92 H 20 133/66 97 02/21/18 07:00 02/21/18 07:00 02/21/18 07:00 02/21/18 10:21 02/21/18 07:00 - Medications Medications: Current Medications Albuterol (Ventolin Hfa 90 Mcg/Actuation (8 G)) 1 puff IH RQID PRN PRN Reason: Wheezing Last Admin: 02/18/18 19:35 Dose: 1 puff Amlodipine Besylate (Norvasc) 10 mg PO DAILY [facility] Last Admin: 02/21/18 10:20 Dose: 10 mg Aspirin (Ecotrin) 81 mg PO DAILY [facility] Last Admin: 02/21/18 10:20 Dose: 81 mg Carvedilol (Coreg) 12.5 mg PO BID [facility] Last Admin: 02/21/18 10:21 Dose: 12.5 mg Cyclobenzaprine HCl (Flexeril) 10 mg PO Q8 PRN PRN Reason: Muscle spasm Ferrous Sulfate (Feosol) 325 mg PO TID [facility] Last Admin: 02/21/18 10:20 Dose: 325 mg Gabapentin (Neurontin) 100 mg PO TID [facility] Last Admin: 02/21/18 10:20 Dose: 100 mg Heparin Sodium (Porcine) (Heparin) 5,000 units SC Q8 [facility] Last Admin: 02/21/18 06:39 Dose: 5,000 units Hydralazine HCl (Apresoline) 50 mg PO Q12H [facility] Last Admin: 02/21/18 05:40 Dose: 50 mg Insulin Aspart (Novolog) 0 unit SC ACHS [facility] PRN Reason: Protocol Last Admin: 02/21/18 08:26 Dose: 4 units Insulin Glargine (Lantus) 24 unit SC HS [facility] Last Admin: 02/20/18 21:50 Dose: 24 u Metformin HCl (Glucophage) 1,000 mg PO BIDCC [facility] Pantoprazole Sodium (Protonix Ec Tab) 40 mg PO DAILY [facility] Last Admin: 02/21/18 10:20 Dose: 40 mg Rosuvastatin Calcium (Crestor) 5 mg PO HS [facility] Last Admin: 02/20/18 21:50 Dose: 5 mg Fluticasone/Salmeterol (Advair Diskus 500/50) 1 puff INH RQ12 [facility] Last Admin: 02/21/18 08:06 Dose: 1 puff Vitamin B Complex/Vit C/Folic Acid (Nephro-Vince) 1 tab PO 0800 [facility] Last Admin: 02/21/18 08:26 Dose: 1 tab - Labs Labs: 02/17/18 18:45 02/20/18 07:40 - Constitutional Appears: Non-toxic, Chronically Ill - Head Exam Head Exam: NORMOCEPHALIC - Eye Exam Eye Exam: absent: Scleral icterus - ENT Exam ENT Exam: Mucous Membranes Dry - Neck Exam Neck Exam: absent: Lymphadenopathy - Respiratory Exam Respiratory Exam: Decreased Breath Sounds - Cardiovascular Exam Cardiovascular Exam: REGULAR RHYTHM - GI/Abdominal Exam GI & Abdominal Exam: Distended, Soft - Rectal Exam Rectal Exam: Deferred - Exam Exam: NORMAL INSPECTION Assessment and Plan (1) BLAYNE (acute kidney injury) Status: Acute (2) Hypertension Status: Chronic (3) CKD (chronic kidney disease) Status: Acute (4) Diabetes mellitus Status: Acute (5) Non-healing ulcer of foot Status: Acute (6) PVD (peripheral vascular disease) Status: Acute (7) Renal insufficiency Status: Acute (8) Diabetes mellitus type 2 in nonobese Status: Chronic - Assessment and Plan (Free Text) Assessment: await renal clearance for vascular procedure
[2018-02-21 12:18] LABS: CALCIUM 9.1 mg/dl (8.6-10.4)
--- NOTE | 2018-02-21 12:38 | CP.PCM.PN ---
Subjective - Date & Time of Evaluation Date of Evaluation: 02/21/18 Time of Evaluation: 12:37 - Subjective Subjective: Podiatry Progress note: Dr. Mcmanus 52 year old female patient was evaluated this morning for right foot ulceration. Denies of any pain to the foot today. Denies of recent F/N/V/C/SOB/ CP/headache. No other pedal complains. Objective - Vital Signs/Intake and Output Vital Signs (last 24 hours): Temp Pulse Resp BP Pulse Ox 98.5 F 92 H 20 133/66 97 02/21/18 07:00 02/21/18 07:00 02/21/18 07:00 02/21/18 10:21 02/21/18 07:00 - Medications Medications: Current Medications Albuterol (Ventolin Hfa 90 Mcg/Actuation (8 G)) 1 puff IH RQID PRN PRN Reason: Wheezing Last Admin: 02/18/18 19:35 Dose: 1 puff Amlodipine Besylate (Norvasc) 10 mg PO DAILY [facility] Last Admin: 02/21/18 10:20 Dose: 10 mg Aspirin (Ecotrin) 81 mg PO DAILY [facility] Last Admin: 02/21/18 10:20 Dose: 81 mg Carvedilol (Coreg) 12.5 mg PO BID [facility] Last Admin: 02/21/18 10:21 Dose: 12.5 mg Cyclobenzaprine HCl (Flexeril) 10 mg PO Q8 PRN PRN Reason: Muscle spasm Ferrous Sulfate (Feosol) 325 mg PO TID [facility] Last Admin: 02/21/18 10:20 Dose: 325 mg Gabapentin (Neurontin) 100 mg PO TID [facility] Last Admin: 02/21/18 10:20 Dose: 100 mg Heparin Sodium (Porcine) (Heparin) 5,000 units SC Q8 [facility] Last Admin: 02/21/18 06:39 Dose: 5,000 units Hydralazine HCl (Apresoline) 50 mg PO Q12H [facility] Last Admin: 02/21/18 05:40 Dose: 50 mg Insulin Aspart (Novolog) 0 unit SC ACHS [facility] PRN Reason: Protocol Last Admin: 02/21/18 08:26 Dose: 4 units Insulin Glargine (Lantus) 24 unit SC HS [facility] Last Admin: 02/20/18 21:50 Dose: 24 u Metformin HCl (Glucophage) 1,000 mg PO BIDCC [facility] Pantoprazole Sodium (Protonix Ec Tab) 40 mg PO DAILY [facility] Last Admin: 02/21/18 10:20 Dose: 40 mg Rosuvastatin Calcium (Crestor) 5 mg PO HS [facility] Last Admin: 02/20/18 21:50 Dose: 5 mg Fluticasone/Salmeterol (Advair Diskus 500/50) 1 puff INH RQ12 [facility] Last Admin: 02/21/18 08:06 Dose: 1 puff Vitamin B Complex/Vit C/Folic Acid (Nephro-Vince) 1 tab PO 0800 [facility] Last Admin: 02/21/18 08:26 Dose: 1 tab - Labs Labs: 02/17/18 18:45 02/21/18 11:35 - Constitutional Appears: Well, Non-toxic, No Acute Distress - Extremities Exam Additional comments: LE focused exam: VASC: DP/PT non-palpable b/l, temperature gradient warm to cool from proximal to distal b/l, Cap refill delayed to digits > 4 sec, no edema noted b/l. NEURO: Gross sensation intact, Protective sensation diminished DERM:Kye circular ulceration noted to the lateral aspect of 5th metatarsal base measuring approximately 0.5 cm in diameter with no depth. No drainage, No erythema, No fluctanance noted, No streaking. Ulcer is surrounded by hyperkeratotic area. No clinical signs of infection. MSK: Pain on palpating at site of ulceration. - Neurological Exam Neurological Exam: Alert, Awake, Oriented x3 - Psychiatric Exam Psychiatric exam: Normal Affect, Normal Mood Assessment and Plan - Assessment and Plan (Free Text) Assessment: 52 year old female with stable non-infected right foot ulceration Plan: Patient seen and evaluated with attending Dr Marietta Pink, charts reviewed; Afebrile Ulcer appears non-infected clinically at this time Ulcer dressed with betadine, DSD Stable from podiatry standpoint Will continue to follow up patient while in house
[2018-02-21] MEDS: Albuterol HFA 90 mcg/actuation (8 g) IH PRN (19:24)
[2018-02-21] MEDS: (Lantus) Insulin Glargine, Recombinant SC SCH (21:48)
--- NOTE | 2018-02-22 06:49 | PN ---
DATE: 02/21/2018 FOLLOWUP RENAL CONSULTATION LOCATION: The patient is located in room 660, bed B. REQUESTED BY: Carlos Haddad MD REASON FOR FOLLOWUP: Acute renal failure, chronic kidney disease. HISTORY OF PRESENT ILLNESS: Mrs. Orozco is a 52-year-old middle-aged [place] female with a past medical history significant for longstanding hypertension, diabetes, hyperlipidemia, coronary artery disease status post CABG, peripheral vascular disease status post angioplasty of the right lower extremity few weeks ago, was admitted with severe headache and right-sided body pains. Her baseline creatinine about 2 to 2.5. The patient is not in acute distress. Denies any chest pain or palpitation. Denies any fever or cough. No abdominal pain. No nausea, vomiting, or diarrhea. PHYSICAL EXAMINATION: VITAL SIGNS: As follows: Blood pressure this morning 133/66, pulse 92, respirations 20, temperature 98.5, saturation 97%. Height 5 feet 5 inches. Weight is 132 pounds. GENERAL: Mrs. Orozco is a 52-year-old female, moderately built, moderately nourished, not in distress. HEENT: Pupils normal, reactive to light and accommodation. Conjunctivae pink. Sclerae anicteric. Tongue is moist and trachea is midline. LUNGS: Symmetric on both sides. Bilateral breath sounds present. Clear to auscultation. CVS: [place] at the fifth intercostal space and midclavicular line. S1 and S2 audible. No murmur or gallop. ABDOMEN: Normal in appearance. Soft, tympanitic. No guarding. No hepatosplenomegaly. TRANSPORTATION SPECIALIST: The patient is alert, awake, oriented x3. Nonfocal neuro examination. Cranial nerves II-XII grossly intact. Sensory and motor system within normal limits. EXTREMITIES: No cyanosis, no clubbing, no edema. The patient has a dressing to the right foot. CURRENT MEDICATIONS: Include as follows: Advair one puff every 12 hours, hydralazine 50 every 12 hours, Coreg 12.5 mg p.o. b.i.d., Crestor 5 mg at bedtime, aspirin 81 mg daily, Feosol 325 mg p.o. t.i.d., Flexeril, metformin on hold, subcu heparin 5000 every 8 hours, Lantus 24 units subcu at bedtime, Nephro-Vince one tablet daily, gabapentin 100 mg p.o. t.i.d., amlodipine 10 mg, Protonix 40 mg, NovoLog for sliding scale, and Ventolin one puff four times a day p.r.n. No new labs are available for today. ASSESSMENT AND PLAN: In summary, Mrs. Orozco is a 52-year-old middle-aged female with hypertension, diabetes, hyperlipidemia, coronary artery disease status post coronary artery bypass graft, peripheral vascular disease status post angioplasty few weeks ago and healing ulcer on the lateral border of the right foot, was admitted with uncontrolled hypertension, headache, and right-sided body pain with increased BUN, creatinine and proteinuria. 1. Acute renal failure, on chronic kidney disease, most likely secondary to non-steroids and metformin. The patient is off metformin and non-steroids at this time. 2. Nephrotic range proteinuria, most likely secondary to diabetic nephropathy. All the serological workup is within normal limits. Repeat urine protein electrophoresis and serum protein electrophoresis and also check basic metabolic profile, parathyroid hormone, and phosphorus level. Encouraged p.o. fluids. 3. Diabetes. 4. Coronary artery disease, asymptomatic. We will follow with you. Thank you for allowing me to participate in your patient's care. Repeat basic metabolic profile today. Vasiliy Emery MD MTDD
[2018-02-22] MEDS: Fluticasone-Salmeterol 500-50mcg Diskus INH SCH ×2 (08:14→19:15)
[2018-02-22] MEDS: Albuterol HFA 90 mcg/actuation (8 g) IH PRN ×3 (08:16→19:16)
[2018-02-22] MEDS: (Novolog) Insulin Aspart, Recombinant 100 u/ml 10 ml vial SC SCH ×4 (09:00→21:41)
[2018-02-22] MEDS: Pantoprazole 40 mg EC Tab PO SCH (11:03)
[2018-02-22] MEDS: Multivitamin Vitamin B Complex (Nephro-Vite) Tab PO SCH (11:04)
--- NOTE | 2018-02-22 11:13 | CP.PCM.PN ---
Subjective - Date & Time of Evaluation Date of Evaluation: 02/22/18 Time of Evaluation: 11:12 - Subjective Subjective: Podiatry Progress note: Dr. Mcmanus 52 year old female patient was evaluated this morning for right foot ulceration. Denies of any pain to the foot today. Reports that she is going for vascular procedure soon after she is cleared from her kidney doctor. Denies of recent F/N/V/C/SOB/CP/headache. No other pedal complains. Objective - Vital Signs/Intake and Output Vital Signs (last 24 hours): Temp Pulse Resp BP Pulse Ox 98.1 F 85 20 144/73 94 L 02/22/18 07:00 02/22/18 07:00 02/22/18 07:00 02/22/18 11:05 02/22/18 07:00 - Medications Medications: Current Medications Albuterol (Ventolin Hfa 90 Mcg/Actuation (8 G)) 1 puff IH RQID PRN PRN Reason: Wheezing Last Admin: 02/22/18 08:16 Dose: 1 puff Amlodipine Besylate (Norvasc) 10 mg PO DAILY [facility] Last Admin: 02/22/18 11:04 Dose: 10 mg Aspirin (Ecotrin) 81 mg PO DAILY [facility] Last Admin: 02/22/18 11:04 Dose: 81 mg Carvedilol (Coreg) 12.5 mg PO BID [facility] Last Admin: 02/22/18 11:05 Dose: 12.5 mg Cyclobenzaprine HCl (Flexeril) 10 mg PO Q8 PRN PRN Reason: Muscle spasm Ferrous Sulfate (Feosol) 325 mg PO TID [facility] Last Admin: 02/22/18 11:05 Dose: 325 mg Gabapentin (Neurontin) 100 mg PO TID [facility] Last Admin: 02/22/18 11:04 Dose: 100 mg Hydralazine HCl (Apresoline) 50 mg PO Q12H [facility] Last Admin: 02/22/18 07:00 Dose: 50 mg Insulin Aspart (Novolog) 0 unit SC ACHS [facility] PRN Reason: Protocol Last Admin: 02/22/18 11:03 Dose: 6 units Insulin Glargine (Lantus) 24 unit SC HS [facility] Last Admin: 02/21/18 21:48 Dose: 24 u Metformin HCl (Glucophage) 1,000 mg PO BIDCC [facility] Pantoprazole Sodium (Protonix Ec Tab) 40 mg PO DAILY [facility] Last Admin: 02/22/18 11:03 Dose: 40 mg Rosuvastatin Calcium (Crestor) 5 mg PO HS [facility] Last Admin: 02/21/18 21:49 Dose: 5 mg Fluticasone/Salmeterol (Advair Diskus 500/50) 1 puff INH RQ12 [facility] Last Admin: 02/22/18 08:14 Dose: 1 puff Vitamin B Complex/Vit C/Folic Acid (Nephro-Vince) 1 tab PO 0800 [facility] Last Admin: 02/22/18 11:04 Dose: 1 tab - Labs Labs: 02/17/18 18:45 02/21/18 11:35 - Constitutional Appears: Well, Non-toxic, No Acute Distress - Extremities Exam Additional comments: LE focused exam: VASC: DP/PT non-palpable b/l, temperature gradient warm to cool from proximal to distal b/l, Cap refill delayed to digits > 4 sec, no edema noted b/l. NEURO: Gross sensation intact, Protective sensation diminished DERM:Kye circular ulceration noted to the lateral aspect of 5th metatarsal base measuring approximately 0.5 cm in diameter with no depth. No drainage, No erythema, No fluctanance noted, No streaking. Ulcer is surrounded by hyperkeratotic area. No clinical signs of infection. MSK: Pain on palpating at site of ulceration. - Neurological Exam Neurological Exam: Alert, Awake, Oriented x3 - Psychiatric Exam Psychiatric exam: Normal Affect, Normal Mood Assessment and Plan - Assessment and Plan (Free Text) Assessment: 52 year old female with stable non-infected right foot ulceration Plan: Patient seen and evaluated Discussed plan with attending Dr Marietta Pink, charts reviewed; Afebrile Ulcer appears non-infected clinically at this time Ulcer dressed with betadine, DSD Stable from podiatry standpoint Will continue to follow up patient while in house
--- NOTE | 2018-02-22 14:25 | CARD ---
APPROVED REPORT Date of service: 02/17/2018 EKG Measurement Heart [id number] <Conclusion> Normal sinus rhythm Possible Left atrial enlargement ST & T wave abnormality, consider inferior ischemia Abnormal ECG
--- NOTE | 2018-02-22 16:57 | CP.PCM.PN ---
Subjective - Date & Time of Evaluation Date of Evaluation: 02/22/18 Time of Evaluation: 09:00 - Subjective Subjective: DENIES CHEST PAIN OR SOB HAS CHRONIC ULCER RIGHT FOOT NO PALPABLE PULSES RENAL FUNCTION APPEARS SAME Objective - Vital Signs/Intake and Output Vital Signs (last 24 hours): Temp Pulse Resp BP Pulse Ox 98.7 F 80 20 103/56 L 94 L 02/22/18 15:38 02/22/18 15:38 02/22/18 15:38 02/22/18 15:38 02/22/18 15:38 Intake and Output: 02/22/18 02/22/18 06:59 18:59 Intake Total 500 Balance 500 - Medications Medications: Current Medications Albuterol (Ventolin Hfa 90 Mcg/Actuation (8 G)) 1 puff IH RQID PRN PRN Reason: Wheezing Last Admin: 02/22/18 13:34 Dose: 1 puff Amlodipine Besylate (Norvasc) 10 mg PO DAILY [facility] Last Admin: 02/22/18 11:04 Dose: 10 mg Aspirin (Ecotrin) 81 mg PO DAILY [facility] Last Admin: 02/22/18 11:04 Dose: 81 mg Carvedilol (Coreg) 12.5 mg PO BID [facility] Last Admin: 02/22/18 11:05 Dose: 12.5 mg Cyclobenzaprine HCl (Flexeril) 10 mg PO Q8 PRN PRN Reason: Muscle spasm Ferrous Sulfate (Feosol) 325 mg PO TID [facility] Last Admin: 02/22/18 13:21 Dose: 325 mg Gabapentin (Neurontin) 100 mg PO TID [facility] Last Admin: 02/22/18 13:21 Dose: 100 mg Hydralazine HCl (Apresoline) 50 mg PO Q12H [facility] Last Admin: 02/22/18 07:00 Dose: 50 mg Insulin Aspart (Novolog) 0 unit SC ACHS [facility] PRN Reason: Protocol Last Admin: 02/22/18 12:27 Dose: 8 units Insulin Glargine (Lantus) 24 unit SC HS [facility] Last Admin: 02/21/18 21:48 Dose: 24 u [facility] ([facility] Pantoprazole Sodium (Protonix Ec Tab) 40 mg PO DAILY [facility] Last Admin: 02/22/18 11:03 Dose: 40 mg Rosuvastatin Calcium (Crestor) 5 mg PO HS [facility] Last Admin: 02/21/18 21:49 Dose: 5 mg Fluticasone/Salmeterol (Advair Diskus 500/50) 1 puff INH RQ12 [facility] Last Admin: 02/22/18 08:14 Dose: 1 puff Vitamin B Complex/Vit C/Folic Acid (Nephro-Vince) 1 tab PO 0800 [facility] Last Admin: 02/22/18 11:04 Dose: 1 tab - Labs Labs: 02/17/18 18:45 02/21/18 11:35 - Constitutional Appears: Non-toxic, Chronically Ill - Head Exam Head Exam: NORMOCEPHALIC - Eye Exam Eye Exam: PERRL - ENT Exam ENT Exam: Mucous Membranes Dry - Neck Exam Neck Exam: absent: Lymphadenopathy - Respiratory Exam Respiratory Exam: Decreased Breath Sounds - Cardiovascular Exam Cardiovascular Exam: REGULAR RHYTHM - GI/Abdominal Exam GI & Abdominal Exam: Distended, Soft - Rectal Exam Rectal Exam: Deferred - Exam Exam: NORMAL INSPECTION - Extremities Exam Extremities Exam: absent: Pedal Edema Additional comments: LE focused exam: VASC: DP/PT non-palpable b/l, temperature gradient warm to cool from proximal to distal b/l, Cap refill delayed to digits > 4 sec, no edema noted b/l. NEURO: Gross sensation intact, Protective sensation diminished DERM:Kye circular ulceration noted to the lateral aspect of 5th metatarsal base measuring approximately 0.5 cm in diameter with no depth. No drainage, No erythema, No fluctanance noted, No streaking. Ulcer is surrounded by hyperkeratotic area. No clinical signs of infection. MSK: Pain on palpating at site of ulceration. - Back Exam Back Exam: absent: CVA tenderness (L), CVA tenderness (R) - Neurological Exam Neurological Exam: Alert, Awake, Oriented x3 - Psychiatric Exam Psychiatric exam: Depressed Assessment and Plan (1) BLAYNE (acute kidney injury) Status: Acute (2) Hypertension Status: Chronic (3) CKD (chronic kidney disease) Status: Acute (4) Diabetes mellitus Status: Acute (5) Non-healing ulcer of foot Status: Acute (6) PVD (peripheral vascular disease) Status: Acute (7) Renal insufficiency Status: Acute (8) Diabetes mellitus type 2 in nonobese Status: Chronic - Assessment and Plan (Free Text) Assessment: CONT SUPPORTIVE RX AWAIT RENAL CLEARANCE DR YOUNG TO RE-EVAL
--- NOTE | 2018-02-22 18:38 | CP.PCM.PN ---
Subjective - Date & Time of Evaluation Date of Evaluation: 02/22/18 Time of Evaluation: 18:38 - Subjective Subjective: pt is seen and examined, follow up consult is dictated #[id number] Objective - Vital Signs/Intake and Output Vital Signs (last 24 hours): Temp Pulse Resp BP Pulse Ox 98.7 F 80 20 103/56 L 94 L 02/22/18 15:38 02/22/18 15:38 02/22/18 15:38 02/22/18 15:38 02/22/18 15:38 Intake and Output: 02/22/18 02/22/18 06:59 18:59 Intake Total 500 Balance 500 - Medications Medications: Current Medications Albuterol (Ventolin Hfa 90 Mcg/Actuation (8 G)) 1 puff IH RQID PRN PRN Reason: Wheezing Last Admin: 02/22/18 13:34 Dose: 1 puff Amlodipine Besylate (Norvasc) 10 mg PO DAILY [facility] Last Admin: 02/22/18 11:04 Dose: 10 mg Aspirin (Ecotrin) 81 mg PO DAILY [facility] Last Admin: 02/22/18 11:04 Dose: 81 mg Carvedilol (Coreg) 12.5 mg PO BID [facility] Last Admin: 02/22/18 17:43 Dose: Not Given Cyclobenzaprine HCl (Flexeril) 10 mg PO Q8 PRN PRN Reason: Muscle spasm Last Admin: 02/22/18 17:55 Dose: 10 mg Ferrous Sulfate (Feosol) 325 mg PO TID [facility] Last Admin: 02/22/18 17:42 Dose: 325 mg Gabapentin (Neurontin) 100 mg PO TID [facility] Last Admin: 02/22/18 17:41 Dose: 100 mg Hydralazine HCl (Apresoline) 50 mg PO Q12H [facility] Last Admin: 02/22/18 17:48 Dose: Not Given Insulin Aspart (Novolog) 0 unit SC ACHS [facility] PRN Reason: Protocol Last Admin: 02/22/18 17:44 Dose: 2 units Insulin Glargine (Lantus) 24 unit SC HS [facility] Last Admin: 02/21/18 21:48 Dose: 24 u Metformin [facility] ([facility] Pantoprazole Sodium (Protonix Ec Tab) 40 mg PO DAILY [facility] Last Admin: 02/22/18 11:03 Dose: 40 mg Rosuvastatin Calcium (Crestor) 5 mg PO HS [facility] Last Admin: 02/21/18 21:49 Dose: 5 mg Fluticasone/Salmeterol (Advair Diskus 500/50) 1 puff INH RQ12 [facility] Last Admin: 02/22/18 08:14 Dose: 1 puff Vitamin B Complex/Vit C/Folic Acid (Nephro-Vince) 1 tab PO 0800 [facility] Last Admin: 02/22/18 11:04 Dose: 1 tab - Labs Labs: 02/17/18 18:45 02/21/18 11:35
[2018-02-22] MEDS: (Lantus) Insulin Glargine, Recombinant SC SCH (21:41)
--- NOTE | 2018-02-23 05:02 | PN ---
DATE: 02/22/2018 FOLLOWUP RENAL CONSULTATION LOCATION: The patient is located in room 660, bed B. REQUESTED BY: Wes Carrillo MD REASON FOR FOLLOWUP: Acute renal failure, chronic kidney disease, nephrotic-range proteinuria. SUBJECTIVE: Mrs. Orozco is a 52-year-old [place] female with a history of longstanding hypertension, diabetes, hyperlipidemia, coronary artery disease, status post CABG, peripheral vascular disease, status post angioplasty of the right lower extremity and also nonhealing right foot ulcer, nephrotic-range proteinuria who was admitted with headache and right-sided body pains and found to have uncontrolled hypertension with worsening renal function. The patient was found to have massive proteinuria. The patient is not in acute distress. Still complains of back pain, upper chest. No nausea, no vomiting, no diarrhea. No fever. No cough. No abdominal pain. PHYSICAL EXAMINATION: VITAL SIGNS: As follows: Blood pressure this afternoon 144/73 and this afternoon at 03:38 p.m., blood pressure 103/56; pulse 80; respirations 20; temperature 98.7; saturation 94%. Height 5 feet 5 inches. Weight is 132 pounds. GENERAL: Mrs. Orozco is a 52-year-old female, moderately built, moderately nourished, not in acute distress. HEENT: Pupils are normal and reactive to light and accommodation. Conjunctivae pink. Sclerae anicteric. Tongue is moist and trachea is midline. LUNGS: Symmetric on both sides. Bilateral breath sounds present. Clear to auscultation. CARDIOVASCULAR SYSTEM: [place] at the fifth intercostal space, midclavicular line. S1, S2 audible. No murmur or gallop. The patient has a midsternal scar present from the previous CABG. ABDOMEN: Soft, tympanitic. No guarding. No rigidity. No hepatosplenomegaly. CENTRAL NERVOUS SYSTEM: The patient is alert, awake, oriented x3. Nonfocal neuro examination. Cranial nerves II-XII grossly intact. Sensory and motor system is within normal limits. EXTREMITIES: No cyanosis, no clubbing, no edema. The patient has a dressing to the right foot. CURRENT MEDICATIONS: Include as follows: Advair, hydralazine 50 mg p.o. every 12 hours, Coreg 12.5 mg p.o. b.i.d., Crestor 5 mg p.o. at bedtime, aspirin 81 mg daily, Feosol 325 mg p.o. t.i.d., Flexeril 10 mg p.o. every 8 hours, metformin on hold, Lantus 24 units subcu at bedtime, Nephro-Vince one tablet daily, gabapentin 100 mg p.o. t.i.d., Norvasc 10 mg daily, Protonix 40 mg daily, and albuterol inhaler one puff four times a day p.r.n. LABORATORY DATA: Include as follows: No new labs are available today. Accu-Cheks were 307, 250, 303, and 165. RAISA screening is negative. Serum protein electrophoresis is pending. A 24-hour urine volume is 1475 mg. A 24-hour urine creatinine is 868 mg. A 24-hour urine protein is 6.44 g and creatinine clearance is 18 mL with a serum creatinine 3.3. ASSESSMENT AND PLAN: In summary, Mrs. Orozco is a 52-year-old middle-aged [place] female with a history of hypertension, diabetes, diabetic retinopathy, coronary artery disease, status post coronary artery bypass grafting, peripheral vascular disease, status post angioplasty with massive proteinuria for more than two years with worsening renal function and low bicarbonate and hyperkalemia. 1. Chronic kidney disease 4, approaching chronic kidney disease 5, most likely secondary to diabetic nephropathy, cannot rule out underlying chronic glomerulonephritis such as focal segmental glomerulosclerosis or IgA nephropathy. 2. Hypertension. Blood pressure is stable. Avoid hypertension, try to keep the blood pressure around 140. Avoid any normotensive ischemic acute tubular necrosis. 3. Hyperkalemia. 4. Metabolic acidosis. We will add sodium bicarbonate 650 mg orally every 8 hours and consider low sodium, low potassium diet. Discussed with the patient regarding the need for the arteriovenous fistula placement for the near future hemodialysis. The patient agreed for arteriovenous fistula placement. We will request a wean mapping and also vascular surgery consult for arteriovascular fistula placement and evaluation. We will follow with you. Thank you for allowing me to participate in your patient's care. Hold blood pressure medicine for less than 130 and will change hydralazine to 25 mg orally every 8 hours. Vasiliy Emery MD [facility] # [id number] MTDUlises
--- NOTE | 2018-02-23 06:04 | CP.PCM.CON ---
History of Present Illness - History of Present Illness History of Present Illness: Surgery 52 F w PMH of CKD and DM came with WHITE and uncontrollable HTN. Pt was also found to have massive proteinuria. Denies fever, nausea, vomiting, vision changes. Pt havent' had HD in the past. Pt is consenting for AVF. Surgery is consulted for hemodialysis ascess. PMH CKD, DM, PVD PSH R angioplasty Review of Systems - Review of Systems Review of Systems: See HPI Past Patient History - Infectious Disease Hx of Infectious Diseases: None - Past Medical History & Family History Past Medical History?: Yes - Past Social History Smoking Status: Never Smoked - CARDIAC Hx Hypercholesterolemia: Yes Hx Hypertension: Yes - PULMONARY Hx Chronic Obstructive Pulmonary Disease (COPD): Yes - NEUROLOGICAL Hx Neurological Disorder: Yes Hx Syncope: Yes - HEENT Hx HEENT Problems: No - RENAL Hx Chronic Kidney Disease: No - ENDOCRINE/METABOLIC Hx Diabetes Mellitus Type 1: Yes - HEMATOLOGICAL/ONCOLOGICAL Hx Anemia: Yes - INTEGUMENTARY Hx Dermatological Problems: No - MUSCULOSKELETAL/RHEUMATOLOGICAL Hx Arthritis: Yes (KNEE; BACK) - GASTROINTESTINAL Hx Gastrointestinal Disorders: Yes Hx Gastroesophageal Reflux: Yes - GENITOURINARY/GYNECOLOGICAL Hx Genitourinary Disorders: No - PSYCHIATRIC Hx Substance Use: No - SURGICAL HISTORY Hx Coronary Artery Bypass Graft: Yes (09/19) - ANESTHESIA Hx Anesthesia: Yes Hx Anesthesia Reactions: No Hx Malignant Hyperthermia: No Meds Allergies/Adverse Reactions: Allergies Allergy/AdvReac Type Severity Reaction Status Date / Time No Known Allergies Allergy Verified 05/20/17 09:51 - Medications Medications: Current Medications Albuterol (Ventolin Hfa 90 Mcg/Actuation (8 G)) 1 puff IH RQID PRN PRN Reason: Wheezing Last Admin: 02/22/18 19:16 Dose: 1 puff Amlodipine Besylate (Norvasc) 10 mg PO DAILY [facility] Last Admin: 02/22/18 11:04 Dose: 10 mg Aspirin (Ecotrin) 81 mg PO DAILY [facility] Last Admin: 02/22/18 11:04 Dose: 81 mg Carvedilol (Coreg) 12.5 mg PO BID [facility] Last Admin: 02/22/18 17:43 Dose: Not Given Cyclobenzaprine HCl (Flexeril) 10 mg PO Q8 PRN PRN Reason: Muscle spasm Last Admin: 02/22/18 17:55 Dose: 10 mg Ferrous Sulfate (Feosol) 325 mg PO TID [facility] Last Admin: 02/22/18 17:42 Dose: 325 mg Gabapentin (Neurontin) 100 mg PO TID [facility] Last Admin: 02/22/18 17:41 Dose: 100 mg Hydralazine HCl (Apresoline) 50 mg PO Q12H [facility] Last Admin: 02/23/18 05:24 Dose: 50 mg Insulin Aspart (Novolog) [address] [facility] PRN Reason: Protocol Last Admin: 02/22/18 21:41 Dose: 3 units Insulin Glargine (Lantus) 24 unit SC [facility] Last Admin: 02/22/18 21:41 Dose: 24 u Metformin HCl (Glucophage) 1,000 mg PO BIDCC [facility] Pantoprazole Sodium (Protonix Ec Tab) 40 mg PO DAILY [facility] Last Admin: 02/22/18 11:03 Dose: 40 mg Rosuvastatin Calcium (Crestor) 5 mg PO [facility] Last Admin: 02/22/18 21:41 Dose: 5 mg Fluticasone/Salmeterol (Advair Diskus 500/50) 1 puff INH RQ12 [facility] Last Admin: 02/22/18 19:15 Dose: 1 puff Sodium Bicarbonate (Sodium Bicarbonate Tab) 650 mg PO Q8 [facility] Last Admin: 02/23/18 05:24 Dose: 650 mg Vitamin B Complex/Vit C/Folic Acid (Nephro-Vince) 1 tab PO 0800 [facility] Last Admin: 02/22/18 11:04 Dose: 1 tab Physical Exam - Constitutional Appears: No Acute Distress - Head Exam Head Exam: ATRAUMATIC, NORMAL INSPECTION, NORMOCEPHALIC - Eye Exam Eye Exam: EOMI, Normal appearance, PERRL Pupil Exam: NORMAL ACCOMODATION, PERRL - ENT Exam ENT Exam: Mucous Membranes Moist, Normal Exam - Neck Exam Neck exam: Positive for: Normal Inspection - Respiratory Exam Respiratory Exam: NORMAL BREATHING PATTERN - Cardiovascular Exam Cardiovascular Exam: REGULAR RHYTHM - GI/Abdominal Exam GI & Abdominal Exam: Normal Bowel Sounds, Soft. absent: Distended, Firm, Guarding, Tenderness - Extremities Exam Extremities exam: Positive for: full ROM, normal inspection - Back Exam Back exam: NORMAL INSPECTION - Neurological Exam Neurological exam: Alert, CN II-XII Intact, Normal Gait, Oriented x3, Reflexes Normal - Psychiatric Exam Psychiatric exam: Normal Affect, Normal Mood - Skin Skin Exam: Dry, Intact, Normal Color, Warm Results - Vital Signs Recent Vital Signs: Last Vital Signs Temp 98.4 F 02/23/18 04:22 Pulse 88 02/23/18 04:22 Resp 20 02/23/18 04:22 BP 123/68 02/23/18 04:22 Pulse Ox 98 02/23/18 04:22 - Labs Result Diagrams: 02/23/18 07:07 02/23/18 07:07 Labs: Laboratory Results - last 24 hr 02/21/18 02/22/18 02/22/18 11:35 01:55 06:10 POC Glucose (mg/dL) 307 H 250 H PTH Intact Whole Molec 45 02/22/18 02/22/18 02/22/18 11:31 16:37 20:50 POC Glucose (mg/dL) 303 H 165 H 391 H PTH Intact Whole Molec 02/23/18 02:31 POC Glucose (mg/dL) 260 H PTH Intact Whole Molec Assessment & Plan - Assessment and Plan (Free Text) Assessment: CKD needing HD -Possible Permacath today if needed. -NPO -WIll plan for AVF L arm tomorrow -COnsent obtained. SABINE Hatfield
[2018-02-23 07:30] LABS: MEAN CELL VOLUME 75.2 fL (81.0-99.0); MEAN CORPUSCULAR HEMOGLOBIN 24.4 pg (27.0-31.0); MEAN CORPUSCULAR HGB CONC 32.4 g/dL (33.0-37.0); MEAN PLATELET VOLUME 8.8 fL (7.2-11.7); RBC 3.03 Mil/uL (3.80-5.20); RED CELL DISTRIBUTION WIDTH 16.9 % (11.5-14.5); WHITE BLOOD COUNT 9.1 K/uL (4.8-10.8)
[2018-02-23 07:31] LABS: HEMOGLOBIN 7.4 g/dL (11.0-16.0)
[2018-02-23 07:34] LABS: ALB/GLOB RATIO 0.9 (1.0-2.1); ALBUMIN 2.9 g/dL (3.5-5.0); CALCIUM 8.6 mg/dl (8.6-10.4)
--- NOTE | 2018-02-23 08:18 | CP.PCM.PN ---
Subjective - Date & Time of Evaluation Date of Evaluation: 02/23/18 Time of Evaluation: 08:15 - Subjective Subjective: Podiatry Progress note: Dr. Mcmanus 52 year old female patient was evaluated this morning for right foot ulceration. Denies of any pain to the foot today. Reports that she does not feel well today. Denies of any new complains or pain from the lower extremities. Denies of recent F/N/V/C/SOB/CP/headache. Objective - Vital Signs/Intake and Output Vital Signs (last 24 hours): Temp Pulse Resp BP Pulse Ox 98.3 F 86 18 100/60 96 02/23/18 07:07 02/23/18 07:07 02/23/18 07:07 02/23/18 07:07 02/23/18 07:07 Intake and Output: 02/23/18 02/23/18 06:59 18:59 Intake Total 480 Balance 480 - Medications Medications: Current Medications Albuterol (Ventolin Hfa 90 Mcg/Actuation (8 G)) 1 puff IH RQID PRN PRN Reason: Wheezing Last Admin: 02/22/18 19:16 Dose: 1 puff Amlodipine Besylate (Norvasc) 10 mg PO DAILY [facility] Last Admin: 02/22/18 11:04 Dose: 10 mg Aspirin (Ecotrin) 81 mg PO DAILY [facility] Last Admin: 02/22/18 11:04 Dose: 81 mg Carvedilol (Coreg) 12.5 mg PO BID [facility] Last Admin: 02/22/18 17:43 Dose: Not Given Cyclobenzaprine HCl (Flexeril) 10 mg PO Q8 PRN PRN Reason: Muscle spasm Last Admin: 02/22/18 17:55 Dose: 10 mg Ferrous Sulfate (Feosol) 325 mg PO TID [facility] Last Admin: 02/22/18 17:42 Dose: 325 mg Gabapentin (Neurontin) 100 mg PO TID [facility] Last Admin: 02/22/18 17:41 Dose: 100 mg Hydralazine HCl (Apresoline) 50 mg PO Q12H [facility] Last Admin: 02/23/18 05:24 Dose: 50 mg Insulin Aspart (Novolog) 0 unit SC ACHS [facility] PRN Reason: Protocol Last Admin: 02/22/18 21:41 Dose: 3 units Insulin Glargine (Lantus) 24 unit SC HS [facility] Last Admin: 02/22/18 21:41 Dose: 24 u Metformin HCl (Glucophage) 1,000 mg PO BIDCC [facility] Pantoprazole Sodium (Protonix Ec Tab) 40 mg PO DAILY [facility] Last Admin: 02/22/18 11:03 Dose: 40 mg Rosuvastatin Calcium (Crestor) 5 mg PO HS [facility] Last Admin: 02/22/18 21:41 Dose: 5 mg Fluticasone/Salmeterol (Advair Diskus 500/50) 1 puff INH RQ12 [facility] Last Admin: 02/22/18 19:15 Dose: 1 puff Sodium Bicarbonate (Sodium Bicarbonate Tab) 650 mg PO Q8 [facility] Last Admin: 02/23/18 05:24 Dose: 650 mg Vitamin B Complex/Vit C/Folic Acid (Nephro-Vince) 1 tab PO 0800 [facility] Last Admin: 02/22/18 11:04 Dose: 1 tab - Labs Labs: 02/23/18 07:07 02/23/18 07:07 - Constitutional Appears: Well, Non-toxic, No Acute Distress - Extremities Exam Additional comments: LE focused exam: VASC: DP/PT non-palpable b/l, temperature gradient warm to cool from proximal to distal b/l, Cap refill delayed to digits > 4 sec, no edema noted b/l. NEURO: Gross sensation intact, Protective sensation diminished DERM:Kye circular ulceration noted to the lateral aspect of 5th metatarsal base measuring approximately 0.5 cm in diameter with no depth. No drainage, No erythema, No fluctanance noted, No streaking. Ulcer is surrounded by hyperkeratotic area. No clinical signs of infection. MSK: Pain on palpating at site of ulceration. - Neurological Exam Neurological Exam: Alert, Awake, Oriented x3 - Psychiatric Exam Psychiatric exam: Normal Affect, Normal Mood Assessment and Plan - Assessment and Plan (Free Text) Assessment: 52 year old female with stable non-infected right foot ulceration Plan: Patient seen and evaluated Discussed plan with attending Dr Marietta Pink, charts reviewed; Afebrile Ulcer appears non-infected clinically at this time Ulcer dressed with betadine, DSD Stable from podiatry standpoint Will continue to follow up patient while in house
[2018-02-23] MEDS: Multivitamin Vitamin B Complex (Nephro-Vite) Tab PO SCH (08:23)
[2018-02-23] MEDS: (Novolog) Insulin Aspart, Recombinant 100 u/ml 10 ml vial SC SCH ×4 (08:30→21:32)
[2018-02-23] MEDS: Pantoprazole 40 mg EC Tab PO SCH (10:20)
[2018-02-23] MEDS: Fluticasone-Salmeterol 500-50mcg Diskus INH SCH ×2 (10:42→19:31)
[2018-02-23 13:11] LABS: ALBUMIN (PEP) 2.4 g/dL (3.8-4.8); ALPHA-1-GLOBULIN (PEP) 0.5 g/dL (0.2-0.3)
--- NOTE | 2018-02-23 18:48 | CP.PCM.PN ---
Subjective - Date & Time of Evaluation Date of Evaluation: 02/23/18 Time of Evaluation: 08:00 - Subjective Subjective: discussed with Dr Man for av fistula Objective - Vital Signs/Intake and Output Vital Signs (last 24 hours): Temp Pulse Resp BP Pulse Ox 98.7 F 84 18 128/68 95 02/23/18 15:55 02/23/18 15:55 02/23/18 15:55 02/23/18 17:51 02/23/18 15:55 Intake and Output: 02/23/18 02/23/18 06:59 18:59 Intake Total 480 Balance 480 - Medications Medications: Current Medications Albuterol (Ventolin Hfa 90 Mcg/Actuation (8 G)) 1 puff IH RQID PRN PRN Reason: Wheezing Last Admin: 02/22/18 19:16 Dose: 1 puff Amlodipine Besylate (Norvasc) 10 mg PO DAILY [facility] Last Admin: 02/23/18 10:24 Dose: 10 mg Aspirin (Ecotrin) 81 mg PO DAILY [facility] Last Admin: 02/23/18 10:20 Dose: 81 mg Carvedilol (Coreg) 12.5 mg PO BID [facility] Last Admin: 02/23/18 17:51 Dose: 12.5 mg Cyclobenzaprine HCl (Flexeril) 10 mg PO Q8 PRN PRN Reason: Muscle spasm Last Admin: 02/23/18 17:51 Dose: 10 mg Ferrous Sulfate (Feosol) 325 mg PO TID [facility] Last Admin: 02/23/18 17:51 Dose: 325 mg Gabapentin (Neurontin) 100 mg PO TID [facility] Last Admin: 02/23/18 17:51 Dose: 100 mg Hydralazine HCl (Apresoline) 50 mg PO Q12H [facility] Last Admin: 02/23/18 17:51 Dose: 50 mg Insulin Aspart (Novolog) 0 unit SC ACHS [facility] PRN Reason: Protocol Last Admin: 02/23/18 17:51 Dose: 4 units Insulin Glargine (Lantus) 24 unit SC HS [facility] Last Admin: 02/22/18 21:41 Dose: 24 u Metformin HCl (Glucophage) 1,000 mg PO BIDCC [facility] Pantoprazole Sodium (Protonix Ec Tab) 40 mg PO DAILY [facility] Last Admin: 02/23/18 10:20 Dose: 40 mg Rosuvastatin Calcium (Crestor) 5 mg PO HS [facility] Last Admin: 02/22/18 21:41 Dose: 5 mg Fluticasone/Salmeterol (Advair Diskus 500/50) 1 puff INH RQ12 [facility] Last Admin: 02/23/18 10:42 Dose: 1 puff Sodium Bicarbonate (Sodium Bicarbonate Tab) 650 mg PO Q8 [facility] Last Admin: 02/23/18 14:45 Dose: 650 mg Vitamin B Complex/Vit C/Folic Acid (Nephro-Vince) 1 tab PO 0800 [facility] Last Admin: 02/23/18 08:23 Dose: 1 tab - Labs Labs: 02/23/18 07:07 02/23/18 07:07 - Constitutional Appears: Non-toxic, Chronically Ill - Head Exam Head Exam: NORMOCEPHALIC - Eye Exam Eye Exam: PERRL - ENT Exam ENT Exam: Mucous Membranes Dry - Neck Exam Neck Exam: absent: Lymphadenopathy - Respiratory Exam Respiratory Exam: Decreased Breath Sounds - Cardiovascular Exam Cardiovascular Exam: REGULAR RHYTHM - GI/Abdominal Exam GI & Abdominal Exam: Distended, Soft - Rectal Exam Rectal Exam: Deferred - Exam Exam: NORMAL INSPECTION Assessment and Plan (1) BLAYNE (acute kidney injury) Status: Acute (2) Hypertension Status: Chronic (3) CKD (chronic kidney disease) Status: Acute (4) Diabetes mellitus Status: Acute (5) Non-healing ulcer of foot Status: Acute (6) PVD (peripheral vascular disease) Status: Acute (7) Renal insufficiency Status: Acute (8) Diabetes mellitus type 2 in nonobese Status: Chronic - Assessment and Plan (Free Text) Assessment: cardio eval for clearance
--- NOTE | 2018-02-23 19:06 | CP.PCM.PN ---
Subjective - Date & Time of Evaluation Date of Evaluation: 02/23/18 Time of Evaluation: 19:04 - Subjective Subjective: pt is seen and examined, follow up consult is dictated #[id number] add epogen [id number] units sc 3x aweek consider to transfuse Objective - Vital Signs/Intake and Output Vital Signs (last 24 hours): Temp Pulse Resp BP Pulse Ox 98.7 F 84 18 128/68 95 02/23/18 15:55 02/23/18 15:55 02/23/18 15:55 02/23/18 17:51 02/23/18 15:55 - Medications Medications: Current Medications Albuterol (Ventolin Hfa 90 Mcg/Actuation (8 G)) 1 puff IH RQID PRN PRN Reason: Wheezing Last Admin: 02/22/18 19:16 Dose: 1 puff Amlodipine Besylate (Norvasc) 10 mg PO DAILY [facility] Last Admin: 02/23/18 10:24 Dose: 10 mg Aspirin (Ecotrin) 81 mg PO DAILY [facility] Last Admin: 02/23/18 10:20 Dose: 81 mg Carvedilol (Coreg) 12.5 mg PO BID [facility] Last Admin: 02/23/18 17:51 Dose: 12.5 mg Cyclobenzaprine HCl (Flexeril) 10 mg PO Q8 PRN PRN Reason: Muscle spasm Last Admin: 02/23/18 17:51 Dose: 10 mg Ferrous Sulfate (Feosol) 325 mg PO TID [facility] Last Admin: 02/23/18 17:51 Dose: 325 mg Gabapentin (Neurontin) 100 mg PO TID [facility] Last Admin: 02/23/18 17:51 Dose: 100 mg Hydralazine HCl (Apresoline) 50 mg PO Q12H [facility] Last Admin: 02/23/18 17:51 Dose: 50 mg Insulin Aspart (Novolog) 0 unit SC ACHS [facility] PRN Reason: Protocol Last Admin: 02/23/18 17:51 Dose: 4 units Insulin Glargine (Lantus) 24 unit SC HS [facility] Last Admin: 02/22/18 21:41 Dose: 24 u [facility] Pantoprazole Sodium (Protonix Ec Tab) 40 mg PO DAILY [facility] Last Admin: 02/23/18 10:20 Dose: 40 mg Rosuvastatin Calcium (Crestor) 5 mg PO HS [facility] Last Admin: 02/22/18 21:41 Dose: 5 mg Fluticasone/Salmeterol (Advair Diskus 500/50) 1 puff INH RQ12 [facility] Last Admin: 02/23/18 10:42 Dose: 1 puff Sodium Bicarbonate (Sodium Bicarbonate Tab) 650 mg PO Q8 [facility] Last Admin: 02/23/18 14:45 Dose: 650 mg Vitamin B Complex/Vit C/Folic Acid (Nephro-Vince) 1 tab PO 0800 [facility] Last Admin: 02/23/18 08:23 Dose: 1 tab - Labs Labs: 02/23/18 07:07 02/23/18 07:07
[2018-02-23] MEDS: Albuterol HFA 90 mcg/actuation (8 g) IH PRN (19:31)
[2018-02-23] MEDS: (Lantus) Insulin Glargine, Recombinant SC SCH (21:32)
[2018-02-24 01:08] LABS: MEAN CELL VOLUME 74.5 fL (81.0-99.0); MEAN CORPUSCULAR HEMOGLOBIN 24.1 pg (27.0-31.0); MEAN CORPUSCULAR HGB CONC 32.4 g/dL (33.0-37.0); MEAN PLATELET VOLUME 8.8 fL (7.2-11.7); RBC 2.9 Mil/uL (3.80-5.20); RED CELL DISTRIBUTION WIDTH 17.2 % (11.5-14.5); WHITE BLOOD COUNT 9.9 K/uL (4.8-10.8)
[2018-02-24 01:15] LABS: PROTHROMBIN TIME 11.4 SECONDS (9.7-12.2)
[2018-02-24 01:59] LABS: CALCIUM 8.7 mg/dl (8.6-10.4)
--- NOTE | 2018-02-24 04:24 | PN ---
DATE: 02/23/2018 FOLLOWUP RENAL CONSULTATION LOCATION: The patient is located in room 660, bed B. REQUESTED BY: Wes Carrillo MD REASON FOR FOLLOWUP: CKD IV, massive proteinuria. HISTORY OF PRESENT ILLNESS: Mrs. Orozco is a 52-year-old middle-aged [place]ese female with a past medical history significant for diabetes for more than 15 years, history of retinal bleed about 7 years ago, hypertension, hyperlipidemia, coronary artery disease, status post CABG about 2 years ago, CKD, massive proteinuria since 2016, and peripheral vascular disease, status post angioplasty of the right lower extremity, who was admitted with headache and right-sided body aches, angioedema, and back pain, and the patient was found to have worsening of renal function and also mild hyperkalemia, metabolic acidosis. The patient agreed for future hemodialysis and access placement. The patient complains of mild shortness of breath on and off and occasional cough. No chest pain. No palpitation. No nausea, vomiting, or diarrhea. PHYSICAL EXAMINATION: VITAL SIGNS: As follows: Blood pressure 128/68, pulse 84, respirations 18, temperature 98.7, saturation 95%. Height 5 feet 5 inches, weight is 132 pounds. GENERAL: Mrs. Orozco is a 52-year-old female, moderately built, moderately nourished, not in acute distress. HEENT: Pupils normal, react to light and accommodation with a poor vision. Conjunctivae pink. Sclerae anicteric. Tongue is moist, and trachea is midline. LUNGS: Symmetric on both sides. Bilateral breath sounds present. Clear to auscultation. CVS: Kimball at the fifth intercostal space and midclavicular line. S1, S2 audible. No murmur or gallop. The patient has a midsternal scar present. ABDOMEN: Soft, tympanitic. No guarding. No rigidity. No hepatosplenomegaly. POTATO LOADER: The patient is alert, awake, oriented x3, and nonfocal neuro examination. Cranial nerves II-XII grossly intact. Sensory and motor system is within normal limits. EXTREMITIES: No cyanosis, no clubbing, no edema. The patient has a dressing to the right foot. CURRENT MEDICATIONS: Include as follows: Advair inhaler every 12 hours, hydralazine 50 mg every 12, Coreg 12.5 mg p.o. b.i.d., Crestor 5 mg at bedtime, Ecotrin 81 mg daily, Feosol 325 mg p.o. t.i.d., Flexeril 10 mg p.o. every 8 hours p.r.n., Lantus 24 units subcu at bedtime, Nephro-Vince 1 tablet daily, and Neurontin 100 mg p.o. t.i.d., amlodipine 10 mg p.o. daily, Protonix 40 mg p.o. daily, sodium bicarbonate 650 mg p.o. every 8, and albuterol inhaler 1 puff four times daily. LABORATORY DATA: Include as follows: As of 02/23/2018, WBC 9.1, hemoglobin 7.4, hematocrit is 22.8, MCV 75.2, and platelets 265. Sodium 140, potassium 5.4, chloride 112, CO2 is 16, BUN 59, creatinine 3.7, glucose 206, calcium 8.6, phosphorus 6.4, magnesium 2.3. Total bili 0.3, AST 30, ALT 37, alkaline phosphatase 106, total protein 6.2, albumin is 2.9. SUMMARY: Mrs. Orozco is a 52-year-old middle-aged [place]ese female with hypertension, longstanding diabetes and diabetic retinopathy, history of retinal bleed about 7 years ago, not following with Ophthalmology, with chronic kidney disease, proteinuria, worsening renal function with massive proteinuria with all the serologies within normal limits. 1. Acute renal failure on chronic kidney disease stage 4 versus progression of the chronic kidney disease. 2. Anemia secondary to renal failure. Rule out iron-deficiency anemia. 3. Metabolic acidosis. 4. Hypertension. 5. Diabetes, uncontrolled. PLAN: The patient agreed for hemodialysis access placement for the future hemodialysis. The patient is scheduled for AV fistula in a.m. We will add Epogen 10,000 units three times a week and continue Nephro-Vince and continue Feosol. Check stool for occult blood. Overall prognosis is guarded. The patient may need to start dialysis during this admission if renal function does not improve. Follow up with Vascular Surgery. Thank you for allowing me to participate in your patient's care. Vasiliy Emery MD [facility] # [id number]
[2018-02-24] MEDS: Pantoprazole 40 mg EC Tab PO SCH (09:10)
[2018-02-24] MEDS: Multivitamin Vitamin B Complex (Nephro-Vite) Tab PO SCH (09:10)
[2018-02-24] MEDS: (Novolog) Insulin Aspart, Recombinant 100 u/ml 10 ml vial SC SCH ×4 (09:11→22:50)
--- NOTE | 2018-02-24 09:24 | CP.PCM.PN ---
Subjective - Date & Time of Evaluation Date of Evaluation: 02/24/18 Time of Evaluation: 09:24 - Subjective Subjective: Podiatry Progress note: Dr. Mcmanus 52 year old female patient was evaluated this morning for right foot ulceration. Denies of any pain to the foot today. Reports she is going for a procedure today. Denies of any new complains or pain from the lower extremities. Denies of recent F/N/V/C/SOB/CP/headache. Objective - Vital Signs/Intake and Output Vital Signs (last 24 hours): Temp Pulse Resp BP Pulse Ox 98.0 F 88 20 122/81 97 02/24/18 07:20 02/24/18 07:20 02/24/18 07:20 02/24/18 09:10 02/24/18 07:20 Intake and Output: 02/24/18 02/24/18 06:59 18:59 Intake Total 400 Balance 400 - Medications Medications: Current Medications Albuterol (Ventolin Hfa 90 Mcg/Actuation (8 G)) 1 puff IH RQID PRN PRN Reason: Wheezing Last Admin: 02/23/18 19:31 Dose: 1 puff Amlodipine Besylate (Norvasc) 10 mg PO DAILY [facility] Last Admin: 02/24/18 09:11 Dose: 10 mg Aspirin (Ecotrin) 81 mg PO DAILY [facility] Last Admin: 02/24/18 09:10 Dose: 81 mg Carvedilol (Coreg) 12.5 mg PO BID [facility] Last Admin: 02/24/18 09:10 Dose: 12.5 mg Cyclobenzaprine HCl (Flexeril) 10 mg PO Q8 PRN PRN Reason: Muscle spasm Last Admin: 02/23/18 17:51 Dose: 10 mg Ferrous Sulfate (Feosol) 325 mg PO TID [facility] Last Admin: 02/24/18 09:10 Dose: 325 mg Gabapentin (Neurontin) 100 mg PO TID [facility] Last Admin: 02/24/18 09:10 Dose: 100 mg Hydralazine HCl (Apresoline) 50 mg PO Q12H [facility] Last Admin: 02/24/18 05:54 Dose: 50 mg Insulin Aspart (Novolog) 0 unit SC ACHS [facility] PRN Reason: Protocol Last Admin: 02/24/18 09:11 Dose: Not Given Insulin Glargine (Lantus) 24 unit SC HS [facility] Last Admin: 02/23/18 21:32 Dose: 24 u Metformin HCl (Glucophage) 1,000 mg PO BIDCC [facility] Pantoprazole Sodium (Protonix Ec Tab) 40 mg PO DAILY [facility] Last Admin: 02/24/18 09:10 Dose: 40 mg Rosuvastatin Calcium (Crestor) 5 mg PO HS [facility] Last Admin: 02/23/18 21:32 Dose: 5 mg Fluticasone/Salmeterol (Advair Diskus 500/50) 1 puff INH RQ12 [facility] Last Admin: 02/23/18 19:31 Dose: 1 puff Sodium Bicarbonate (Sodium Bicarbonate Tab) 650 mg PO Q8 [facility] Last Admin: 02/24/18 05:54 Dose: 650 mg Vitamin B Complex/Vit C/Folic Acid (Nephro-Vince) 1 tab PO 0800 [facility] Last Admin: 02/24/18 09:10 Dose: 1 tab - Labs Labs: 02/24/18 00:56 02/24/18 00:56 PT 11.4 SECONDS (9.7-12.2) 02/24/18 00:56 INR 1.0 02/24/18 00:56 APTT 33 SECONDS (21-34) 02/24/18 00:56 - Constitutional Appears: Well, Non-toxic, No Acute Distress - Extremities Exam Additional comments: LE focused exam: VASC: DP/PT non-palpable b/l, temperature gradient warm to cool from proximal to distal b/l, Cap refill delayed to digits > 4 sec, no edema noted b/l. NEURO: Gross sensation intact, Protective sensation diminished DERM:Kye circular ulceration noted to the lateral aspect of 5th metatarsal base measuring approximately 0.5 cm in diameter with no depth. No drainage, No erythema, No fluctanance noted, No streaking. Ulcer is surrounded by hyperkeratotic area. No clinical signs of infection. MSK: Pain on palpating at site of ulceration. - Neurological Exam Neurological Exam: Alert, Awake, Oriented x3 - Psychiatric Exam Psychiatric exam: Normal Affect, Normal Mood Assessment and Plan - Assessment and Plan (Free Text) Assessment: 52 year old female with stable non-infected right foot ulceration Plan: Patient seen and evaluated Discussed plan with attending Dr Mcmanus Labs, charts reviewed; Afebrile Ulcer appears non-infected clinically at this time Ulcer dressed with betadine, DSD Stable from podiatry standpoint Will continue to follow up patient while in house
[2018-02-24] MEDS ORDERED: ceFAZolin IV 1 gm in Dextrose 1 GM/50 ML BAG IVPB ONE (10:28)
[2018-02-24] MEDS ORDERED: HEPARIN-NS 5,000 UNITS/500 ML 5,000 UNIT/500 ML BAG IV ONE (10:29)
[2018-02-24] MEDS: Fluticasone-Salmeterol 500-50mcg Diskus INH SCH ×2 (10:30→19:32)
[2018-02-24] MEDS ORDERED: Etomidate 20 mg/10ml Inj IV ONE (12:04)
[2018-02-24] MEDS ORDERED: Midazolam 2 MG/2 ML VIAL ONE (12:06)
[2018-02-24] MEDS ORDERED: Lidocaine 2% MPF (5 ml) Inj ONE (12:34)
[2018-02-24] MEDS ORDERED: Bupivacaine 0.25% 20 ML INJ IJ ONE (12:35)
--- NOTE | 2018-02-24 13:41 | VASCLAB ---
Date of service: 02/23/2018 PROCEDURE: Upper Extremity Venous Mapping HISTORY: Vein mapping, Pre-op AV Fistula, ESRD PRIORS: None. TECHNIQUE: Bilateral upper extremity, internal jugular, subclavian, axillary, brachial, ulnar, radial, basilic and upper cephalic veins were evaluated. Flow was assessed with color Doppler, compressibility, assessment of phasic flow and augmentation response. Report prepared by SUSAN Benz FINDINGS: RIGHT: 1. Internal Jugular Vein: Compressibility - Fully compressible: Thrombus - None : Flow - Phasic 2. Subclavian Vein:Compressibility - Fully compressible: Thrombus - None : Flow - Phasic 3. Axillary Vein: Compressibility - Fully compressible: Thrombus - None 4. Brachial Vein: Compressibility - Fully compressible: Thrombus - None 5. Ulnar Vein:Compressibility - Fully compressible: Thrombus - None 6. Radial Vein:Compressibility - Fully compressible: Thrombus - None 7. Cephalic Vein: Compressibility - Fully compressible: thrombus - None 7.1. Upper Arm: Proximal Diameter: 0.24cm. Mid Diameter: 0.20cm. Distal Diameter: 0.18cm. 7.2. Forearm: Proximal Diameter: N/A Mid Diameter:0.18cm. Distal Diameter: 0.18cm 8. Basilic Vein:Compressibility - Fully compressible: thrombus - None 8.1. Upper Arm:Proximal Diameter: 0.22cm. Mid Diameter: 0.20cm. Distal Diameter: 0.17cm. 8.2. Forearm: Proximal Diameter: 0.15cm. Mid Diameter:0.19cm. Distal Diameter: 0.17cm. LEFT: 1. Internal Jugular Vein: Compressibility - Fully compressible: Thrombus - None : Flow - Phasic 2. Subclavian Vein:Compressibility - Fully compressible: Thrombus - None : Flow - Phasic 3. Axillary Vein: Compressibility - Fully compressible: Thrombus - None 4. Brachial Vein: Compressibility - Fully compressible: Thrombus - None 5. Ulnar Vein:Compressibility - Fully compressible: Thrombus - None 6. Radial Vein:Compressibility - Fully compressible: Thrombus - None 7. Cephalic Vein: Compressibility - Fully compressible: thrombus - None 7.1. Upper Arm: Proximal Diameter: 0.20cm. Mid Diameter: 0.17cm. Distal Diameter: 0.14cm. 7.2. Forearm: Proximal Diameter: 0.14cm. Diminutive size distally. 8. Basilic Vein: NOT SEEN OTHER FINDINGS: No evidence of venous thrombosis in bilateral upper extremities. IMPRESSION: Refer to the above listed measurements for vein size.
[2018-02-24] MEDS ORDERED: HYDROmorphone 0.5 mg/0.5 ml ISec IVP PRN (14:28)
--- NOTE | 2018-02-24 14:32 | PCM.SURG1 ---
Surgeon's Initial Post Op Note - Surgeon's Notes Surgeon: Dr. Hatfield Residential Case Manager: Jude PGY3 Type of Anesthesia: Moderate Sedation{RN}, Local Pre-Operative Diagnosis: CKD needing HD Operative Findings: good cephalic L vein and brachial artery. GOod distal pulses. good thrills. Post-Operative Diagnosis: Smae Operation Performed: L brachio-cephalic AVF creation Specimen/Specimens Removed: None Estimated Blood Loss: EBL {In ML}: 10 Blood Products Given: N/A Drains Used: No Drains Post-Op Condition: Good Date of Surgery/Procedure: 02/24/18 Time of Surgery/Procedure: 14:36
--- NOTE | 2018-02-24 19:08 | CP.PCM.PN ---
Subjective - Date & Time of Evaluation Date of Evaluation: 02/24/18 Time of Evaluation: 19:07 - Subjective Subjective: pt is seen nd examined, follow up consult is dictated #[id number] s/p left ue av fistula placement with good bruit Objective - Vital Signs/Intake and Output Vital Signs (last 24 hours): Temp Pulse Resp BP Pulse Ox 98.4 F 77 20 135/72 97 02/24/18 16:52 02/24/18 16:52 02/24/18 16:52 02/24/18 17:47 02/24/18 16:52 Intake and Output: 02/24/18 02/25/18 18:59 06:59 Intake Total 650 Balance 650 - Medications Medications: Current Medications Albuterol (Ventolin Hfa 90 Mcg/Actuation (8 G)) 1 puff IH RQID PRN PRN Reason: Wheezing Last Admin: 02/23/18 19:31 Dose: 1 puff Amlodipine Besylate (Norvasc) 10 mg PO DAILY [facility] Last Admin: 02/24/18 09:11 Dose: 10 mg Aspirin (Ecotrin) 81 mg PO DAILY [facility] Last Admin: 02/24/18 09:10 Dose: 81 mg Carvedilol (Coreg) 12.5 mg PO BID [facility] Last Admin: 02/24/18 17:47 Dose: 12.5 mg Cyclobenzaprine HCl (Flexeril) 10 mg PO Q8 PRN PRN Reason: Muscle spasm Last Admin: 02/23/18 17:51 Dose: 10 mg Ferrous Sulfate (Feosol) 325 mg PO TID [facility] Last Admin: 02/24/18 17:47 Dose: 325 mg Gabapentin (Neurontin) 100 mg PO TID [facility] Last Admin: 02/24/18 17:47 Dose: 100 mg Hydralazine HCl (Apresoline) 50 mg PO Q12H [facility] Last Admin: 02/24/18 17:47 Dose: 50 mg Insulin Aspart (Novolog) 0 unit SC ACHS [facility] PRN Reason: Protocol Last Admin: 02/24/18 11:49 Dose: Not Given Insulin Glargine (Lantus) 24 unit SC HS [facility] Last Admin: 02/23/18 21:32 Dose: 24 u [facility] Pantoprazole Sodium (Protonix Ec Tab) 40 mg PO DAILY [facility] Last Admin: 02/24/18 09:10 Dose: 40 mg Rosuvastatin Calcium (Crestor) 5 mg PO HS [facility] Last Admin: 02/23/18 21:32 Dose: 5 mg Fluticasone/Salmeterol (Advair Diskus 500/50) 1 puff INH RQ12 [facility] Last Admin: 02/24/18 10:30 Dose: 1 puff Sodium Bicarbonate (Sodium Bicarbonate Tab) 650 mg PO Q8 [facility] Last Admin: 02/24/18 14:28 Dose: Not Given Tramadol HCl (Ultram) 50 mg PO TID PRN PRN Reason: Pain, moderate (4-7) Last Admin: 02/24/18 17:47 Dose: 50 mg Vitamin B Complex/Vit C/Folic Acid (Nephro-Vince) 1 tab PO 0800 [facility] Last Admin: 02/24/18 09:10 Dose: 1 tab - Labs Labs: 02/24/18 00:56 02/24/18 00:56 PT 11.4 SECONDS (9.7-12.2) 02/24/18 00:56 INR 1.0 02/24/18 00:56 APTT 33 SECONDS (21-34) 02/24/18 00:56
--- NOTE | 2018-02-24 19:12 | CP.PCM.PN ---
Subjective - Date & Time of Evaluation Date of Evaluation: 02/24/18 Time of Evaluation: 08:00 - Subjective Subjective: HAD LEFT ARM AV FISTULA PLACED C/O PAIN DENIES FEVER NO CHEST PAIN Objective - Vital Signs/Intake and Output Vital Signs (last 24 hours): Temp Pulse Resp BP Pulse Ox 98.4 F 77 20 135/72 97 02/24/18 16:52 02/24/18 16:52 02/24/18 16:52 02/24/18 17:47 02/24/18 16:52 Intake and Output: 02/24/18 02/25/18 18:59 06:59 Intake Total 650 Balance 650 - Medications Medications: Current Medications Albuterol (Ventolin Hfa 90 Mcg/Actuation (8 G)) 1 puff IH RQID PRN PRN Reason: Wheezing Last Admin: 02/23/18 19:31 Dose: 1 puff Amlodipine Besylate (Norvasc) 10 mg PO DAILY [facility] Last Admin: 02/24/18 09:11 Dose: 10 mg Aspirin (Ecotrin) 81 mg PO DAILY [facility] Last Admin: 02/24/18 09:10 Dose: 81 mg Carvedilol (Coreg) 12.5 mg PO BID [facility] Last Admin: 02/24/18 17:47 Dose: 12.5 mg Cyclobenzaprine HCl (Flexeril) 10 mg PO Q8 PRN PRN Reason: Muscle spasm Last Admin: 02/23/18 17:51 Dose: 10 mg Epoetin Tito (Procrit) 10,000 unit SC MWF [facility] Ferrous Sulfate (Feosol) 325 mg PO TID [facility] Last Admin: 02/24/18 17:47 Dose: 325 mg Gabapentin (Neurontin) 100 mg PO TID [facility] Last Admin: 02/24/18 17:47 Dose: 100 mg Hydralazine HCl (Apresoline) 50 mg PO Q12H [facility] Last Admin: 02/24/18 17:47 Dose: 50 mg Insulin Aspart (Novolog) 0 unit SC ACHS [facility] PRN Reason: Protocol Last Admin: 02/24/18 11:49 Dose: Not Given Insulin Glargine (Lantus) 24 unit SC HS [facility] Last Admin: 02/23/18 21:32 Dose: 24 u Metformin HCl (Glucophage) 1,000 mg PO BIDCC [facility] Pantoprazole Sodium (Protonix Ec Tab) 40 mg PO DAILY [facility] Last Admin: 02/24/18 09:10 Dose: 40 mg Rosuvastatin Calcium (Crestor) 5 mg PO HS [facility] Last Admin: 02/23/18 21:32 Dose: 5 mg Fluticasone/Salmeterol (Advair Diskus 500/50) 1 puff INH RQ12 [facility] Last Admin: 02/24/18 10:30 Dose: 1 puff Sodium Bicarbonate (Sodium Bicarbonate Tab) 650 mg PO Q8 [facility] Last Admin: 02/24/18 14:28 Dose: Not Given Tramadol HCl (Ultram) 50 mg PO TID PRN PRN Reason: Pain, moderate (4-7) Last Admin: 02/24/18 17:47 Dose: 50 mg Vitamin B Complex/Vit C/Folic Acid (Nephro-Vince) 1 tab PO 0800 [facility] Last Admin: 02/24/18 09:10 Dose: 1 tab - Labs Labs: 02/24/18 00:56 02/24/18 00:56 PT 11.4 SECONDS (9.7-12.2) 02/24/18 00:56 INR 1.0 02/24/18 00:56 APTT 33 SECONDS (21-34) 02/24/18 00:56 - Constitutional Appears: Non-toxic, Chronically Ill - Head Exam Head Exam: NORMOCEPHALIC - Eye Exam Eye Exam: PERRL - ENT Exam ENT Exam: Mucous Membranes Dry - Neck Exam Neck Exam: absent: Lymphadenopathy - Respiratory Exam Respiratory Exam: Decreased Breath Sounds - Cardiovascular Exam Cardiovascular Exam: REGULAR RHYTHM - GI/Abdominal Exam GI & Abdominal Exam: Distended, Soft - Rectal Exam Rectal Exam: Deferred - Exam Exam: NORMAL INSPECTION - Extremities Exam Extremities Exam: absent: Pedal Edema - Back Exam Back Exam: absent: CVA tenderness (L), CVA tenderness (R) Assessment and Plan (1) BLAYNE (acute kidney injury) Status: Acute (2) Hypertension Status: Chronic (3) CKD (chronic kidney disease) Status: Acute (4) Diabetes mellitus Status: Acute (5) Non-healing ulcer of foot Status: Acute (6) PVD (peripheral vascular disease) Status: Acute (7) Renal insufficiency Status: Acute (8) Diabetes mellitus type 2 in nonobese Status: Chronic - Assessment and Plan (Free Text) Assessment: CONT RX PER DR MOSLEY FOLLOW UP DR TEJADA
[2018-02-24] MEDS: (Lantus) Insulin Glargine, Recombinant SC SCH (21:52)
[2018-02-24] MEDS: EPOETIN ALFA 10,000 UNIT/ML ML SC SCH (21:52)
--- NOTE | 2018-02-25 01:05 | OP ---
PROCEDURE DATE: 02/24/2018 PREOPERATIVE DIAGNOSIS: Renal failure. POSTOPERATIVE DIAGNOSIS: Renal failure. PROCEDURE CARRIED OUT: Brachiocephalic fistula left elbow. SURGEON: Anatoliy Hatfield Jr., MD PROGRAMS MANAGER: Bashir Roque DO. ANESTHESIOLOGIST: Dr. Modi. ANESTHESIA: Local with sedation. INDICATION: The patient is a 52-year-old woman with renal insufficiency who does not yet require dialysis. OPERATIVE FINDINGS: The patient had poor veins; however, the best vein seen was the cephalic vein at the elbow measured approximately 2 and end-to-side fistula was created. There was a small amount of tension after completion of the anastomosis, but there was good flow to the hand on a Doppler signal, not a palpable pulse noted. Good flow to the fistula. ESTIMATED BLOOD LOSS: 15 mL. DESCRIPTION OF PROCEDURE: The patient was given anesthesia. Incision was made exposing the marked vein in the elbow and antecubital fossa. After this has been mobilized and anastomosed in end-to-side fashion to the adjacent artery using loop magnification and heparin anticoagulation. At the end of the procedure, we removed the clamps and there was good flow in both directions. We then terminated the procedure and closed the skin with 5-0 nylon sutures. Anatoliy Hatfield Jr., MD cc: Dr. Vasiliy Emery MD
--- NOTE | 2018-02-25 07:26 | CP.PCM.PN ---
Subjective - Date & Time of Evaluation Date of Evaluation: 02/25/18 Time of Evaluation: 07:24 - Subjective Subjective: Vascular surgery progress note for Dr. Ely Lisa, PGY-2 Pt S & E at bedside at 0620 Pt reports pain in LUE AVF site overnight, but per nursing- mostly slept overnight. Pt drank a little juice, denies N & V. Pt voided this AM. Denies F & C. Objective - Vital Signs/Intake and Output Vital Signs (last 24 hours): Temp Pulse Resp BP Pulse Ox 98.3 F 76 20 106/59 L 97 02/25/18 04:32 02/25/18 04:32 02/25/18 04:32 02/25/18 04:32 02/25/18 04:32 Intake and Output: 02/25/18 02/25/18 06:59 18:59 Intake Total 370 Output Total 550 Balance -180 - Medications Medications: Current Medications Albuterol (Ventolin Hfa 90 Mcg/Actuation (8 G)) 1 puff IH RQID PRN PRN Reason: Wheezing Last Admin: 02/23/18 19:31 Dose: 1 puff Amlodipine Besylate (Norvasc) 10 mg PO DAILY [facility] Last Admin: 02/24/18 09:11 Dose: 10 mg Aspirin (Ecotrin) 81 mg PO DAILY [facility] Last Admin: 02/24/18 09:10 Dose: 81 mg Carvedilol (Coreg) 12.5 mg PO BID [facility] Last Admin: 02/24/18 17:47 Dose: 12.5 mg Cyclobenzaprine HCl (Flexeril) 10 mg PO Q8 PRN PRN Reason: Muscle spasm Last Admin: 02/23/18 17:51 Dose: 10 mg Epoetin Tito (Procrit) 10,000 unit SC MWF [facility] Last Admin: 02/24/18 21:52 Dose: 10,000 unit Ferrous Sulfate (Feosol) 325 mg PO TID [facility] Last Admin: 02/24/18 17:47 Dose: 325 mg Gabapentin (Neurontin) 100 mg PO TID [facility] Last Admin: 02/24/18 17:47 Dose: 100 mg Hydralazine HCl (Apresoline) 50 mg PO Q12H [facility] Last Admin: 02/25/18 05:41 Dose: 50 mg Insulin Aspart (Novolog) 0 unit SC ACHS [facility] PRN Reason: Protocol Last Admin: 02/24/18 22:50 Dose: 2 units Insulin Glargine (Lantus) 24 unit SC [facility] Last Admin: 02/24/18 21:52 Dose: 24 units Metformin HCl (Glucophage) 1,000 mg PO BIDCC [facility] Pantoprazole Sodium (Protonix Ec Tab) 40 mg PO DAILY [facility] Last Admin: 02/24/18 09:10 Dose: 40 mg Rosuvastatin Calcium (Crestor) 5 mg PO HS [facility] Last Admin: 02/24/18 21:52 Dose: 5 mg Fluticasone/Salmeterol (Advair Diskus 500/50) 1 puff INH RQ12 [facility] Last Admin: 02/24/18 19:32 Dose: Not Given Sodium Bicarbonate (Sodium Bicarbonate Tab) 650 mg PO Q8 [facility] Last Admin: 02/25/18 05:41 Dose: 650 mg Tramadol HCl (Ultram) 50 mg PO TID PRN PRN Reason: Pain, moderate (4-7) Last Admin: 02/25/18 05:44 Dose: 50 mg Vitamin B Complex/Vit C/Folic Acid (Nephro-Vince) 1 tab PO 0800 [facility] Last Admin: 02/24/18 09:10 Dose: 1 tab - Labs Labs: 02/24/18 00:56 02/24/18 00:56 PT 11.4 SECONDS (9.7-12.2) 02/24/18 00:56 INR 1.0 02/24/18 00:56 APTT 33 SECONDS (21-34) 02/24/18 00:56 - Constitutional Appears: Non-toxic, No Acute Distress - Head Exam Head Exam: ATRAUMATIC, NORMAL INSPECTION, NORMOCEPHALIC - Eye Exam Eye Exam: EOMI, Normal appearance - ENT Exam ENT Exam: Mucous Membranes Moist, Normal Exam - Neck Exam Neck Exam: Full ROM, Normal Inspection - Respiratory Exam Respiratory Exam: NORMAL BREATHING PATTERN - Cardiovascular Exam Cardiovascular Exam: REGULAR RHYTHM, +S1, +S2 - GI/Abdominal Exam GI & Abdominal Exam: Soft. absent: Tenderness - Extremities Exam Extremities Exam: absent: Normal Inspection (LUE dressing in place- clean/dry/intact. Radial and ulnar pulses palpable) - Neurological Exam Neurological Exam: Alert, Awake, CN II-XII Intact, Oriented x3 - Psychiatric Exam Psychiatric exam: Normal Affect, Normal Mood - Skin Skin Exam: Dry, Intact, Normal Color, Warm Assessment and Plan - Assessment and Plan (Free Text) Assessment: 52F POD#1 s/p brachio-cephalic AVF of LUE Plan: Pulses palpable -radial & ulnar No further vascular surgery intervention at this time Dressing to stay in place until seen by Dr. Hatfield in the office in 5-7 days Ok to shower as long as pt covers dressing wtih plastic Ok for normal diet Further mgmt as per primary team Will DW Dr. Alysia Lisa, PGY-2
[2018-02-25 07:35] LABS: BASO # 0.1 K/uL (0.0-0.2); BASO % 1.6 % (0.0-2.0); EOS # 0.3 K/uL (0.0-0.7); EOS % 3.9 % (0.0-4.0); HEMOGLOBIN 8.1 g/dL (11.0-16.0); LYMPH # 1.7 K/uL (1.0-4.3); LYMPH % 19.9 % (20.0-40.0); MEAN CORPUSCULAR HEMOGLOBIN 25.7 pg (27.0-31.0); MEAN CORPUSCULAR HGB CONC 33.4 g/dL (33.0-37.0); MEAN PLATELET VOLUME 9.1 fL (7.2-11.7); MONO # 0.6 K/uL (0.0-0.8); MONO % 7.5 % (0.0-10.0); NEUT # 5.6 K/uL (1.8-7.0); NEUT % 67.1 % (50.0-75.0); NRBC % 0.1 % (0.0-2.0); RBC 3.17 Mil/uL (3.80-5.20); RED CELL DISTRIBUTION WIDTH 17.9 % (11.5-14.5); WHITE BLOOD COUNT 8.4 K/uL (4.8-10.8)
[2018-02-25] MEDS: (Novolog) Insulin Aspart, Recombinant 100 u/ml 10 ml vial SC SCH ×4 (08:00→21:40)
[2018-02-25 08:03] LABS: ALB/GLOB RATIO 0.9 (1.0-2.1); ALT/SGPT 34 U/L (9-52); AST/SGOT 10 U/L (14-36); BLOOD UREA NITROGEN 66 mg/dL (7-17); CALCIUM 7.9 mg/dl (8.6-10.4); GFR NON-AFRICAN AMERICAN 11
[2018-02-25] MEDS: Fluticasone-Salmeterol 500-50mcg Diskus INH SCH ×2 (08:08→19:34)
[2018-02-25] MEDS: Multivitamin Vitamin B Complex (Nephro-Vite) Tab PO SCH (08:25)
[2018-02-25 09:19] LABS: FOLATE > 20.0 ng/mL
[2018-02-25] MEDS: Pantoprazole 40 mg EC Tab PO SCH (09:28)
--- NOTE | 2018-02-25 12:46 | CP.PCM.PN ---
Subjective - Date & Time of Evaluation Date of Evaluation: 02/25/18 Time of Evaluation: 12:44 - Subjective Subjective: pt is seen and examined, follow up consult is dictated #[id number] renal function is deteriorating d/c metformin d/c tramadol no nephrotoxic agents percocet 1tab po q 4-6 hrs prn for pain Objective - Vital Signs/Intake and Output Vital Signs (last 24 hours): Temp Pulse Resp BP Pulse Ox 97.9 F 78 18 124/69 98 02/25/18 07:05 02/25/18 07:05 02/25/18 07:05 02/25/18 09:29 02/25/18 07:05 Intake and Output: 02/25/18 02/25/18 06:59 18:59 Intake Total 370 Output Total 550 Balance -180 - Medications Medications: Current Medications Albuterol (Ventolin Hfa 90 Mcg/Actuation (8 G)) 1 puff IH RQID PRN PRN Reason: Wheezing Last Admin: 02/23/18 19:31 Dose: 1 puff Amlodipine Besylate (Norvasc) 10 mg PO DAILY [facility] Last Admin: 02/25/18 09:28 Dose: 10 mg Aspirin (Ecotrin) 81 mg PO DAILY [facility] Last Admin: 02/25/18 09:28 Dose: 81 mg Carvedilol (Coreg) 12.5 mg PO BID [facility] Last Admin: 02/25/18 09:29 Dose: 12.5 mg Cyclobenzaprine HCl (Flexeril) 10 mg PO Q8 PRN PRN Reason: Muscle spasm Last Admin: 02/23/18 17:51 Dose: 10 mg Epoetin Tito (Procrit) 10,000 unit SC MWF [facility] Last Admin: 02/24/18 21:52 Dose: 10,000 unit Ferrous Sulfate (Feosol) 325 mg PO TID [facility] Last Admin: 02/24/18 17:47 Dose: 325 mg Gabapentin (Neurontin) 100 mg PO TID [facility] Last Admin: 02/25/18 09:28 Dose: 100 mg Hydralazine HCl (Apresoline) 50 mg PO Q12H [facility] Last Admin: 02/25/18 05:41 Dose: 50 mg Insulin Aspart (Novolog) 0 unit SC ACHS [facility] PRN Reason: Protocol Last Admin: 02/25/18 12:30 Dose: 4 units Insulin Glargine (Lantus) 24 unit SC HS [facility] Last Admin: 02/24/18 21:52 Dose: 24 units Pantoprazole Sodium (Protonix Ec Tab) 40 mg PO DAILY [facility] Last Admin: 02/25/18 09:28 Dose: 40 mg Rosuvastatin Calcium (Crestor) 5 mg PO HS [facility] Last Admin: 02/24/18 21:52 Dose: 5 mg Fluticasone/Salmeterol (Advair Diskus 500/50) 1 puff INH RQ12 [facility] Last Admin: 02/25/18 08:08 Dose: 1 puff Sevelamer Carbonate (Renvela) 2.4 gm PO TIDCC [facility] Sodium Bicarbonate (Sodium Bicarbonate Tab) 650 mg PO Q8 [facility] Last Admin: 02/25/18 05:41 Dose: 650 mg Vitamin B Complex/Vit C/Folic Acid (Nephro-Vince) 1 tab PO 0800 [facility] Last Admin: 02/25/18 08:25 Dose: 1 tab - Labs Labs: 02/25/18 07:23 02/25/18 07:23 PT 11.4 SECONDS (9.7-12.2) 02/24/18 00:56 INR 1.0 02/24/18 00:56 APTT 33 SECONDS (21-34) 02/24/18 00:56
[2018-02-25] MEDS: Oxycodone/Acetaminophen 5/325 mg Tab PO PRN ×2 (14:02→21:36)
--- NOTE | 2018-02-25 14:09 | CP.PCM.PN ---
Subjective - Date & Time of Evaluation Date of Evaluation: 02/25/18 Time of Evaluation: 10:45 - Subjective Subjective: Podiatry Progress note: Dr. Mcmanus 52[address] Mcmanus at bedside for right foot ulceration. Patient is seen resting comfortably in bed, in NAD. Appears to be tired. Family member at bedside during visitation. Denies of pain to the right foot. Dressing is clean dry and intact, Denies of recent F/N/V/C/SOB/CP/headache. Objective - Vital Signs/Intake and Output Vital Signs (last 24 hours): Temp Pulse Resp BP Pulse Ox 97.9 F 78 18 92/53 L 98 02/25/18 07:05 02/25/18 07:05 02/25/18 07:05 02/25/18 14:04 02/25/18 07:05 Intake and Output: 02/25/18 02/25/18 06:59 18:59 Intake Total 370 Output Total 550 Balance -180 - Medications Medications: Current Medications Albuterol (Ventolin Hfa 90 Mcg/Actuation (8 G)) 1 puff IH RQID PRN PRN Reason: Wheezing Last Admin: 02/23/18 19:31 Dose: 1 puff Amlodipine Besylate (Norvasc) 10 mg PO DAILY [facility] Aspirin (Ecotrin) 81 mg PO DAILY [facility] Last Admin: 02/25/18 09:28 Dose: 81 mg Carvedilol (Coreg) 12.5 mg PO BID [facility] Cyclobenzaprine HCl (Flexeril) 10 mg PO Q8 PRN PRN Reason: Muscle spasm Last Admin: 02/23/18 17:51 Dose: 10 mg Epoetin Tito (Procrit) 10,000 unit SC MWF [facility] Last Admin: 02/24/18 21:52 Dose: 10,000 unit Ferrous Sulfate (Feosol) 325 mg PO TID [facility] Last Admin: 02/25/18 13:44 Dose: 325 mg Gabapentin (Neurontin) 100 mg PO TID [facility] Last Admin: 02/25/18 13:44 Dose: 100 mg Hydralazine HCl (Apresoline) 25 mg PO Q8 [facility] Last Admin: 02/25/18 14:04 Dose: Not Given Insulin Aspart (Novolog) 0 unit SC ACHS [facility] PRN Reason: Protocol Last Admin: 02/25/18 12:30 Dose: 4 units Insulin Glargine (Lantus) 24 unit SC HS [facility] Last Admin: 02/24/18 21:52 Dose: 24 units Oxycodone/Acetaminophen (Percocet 5/325 Mg Tab) 1 tab PO Q4H PRN PRN Reason: Pain, moderate (4-7) Stop: 02/28/18 12:47 Last Admin: 02/25/18 14:02 Dose: 1 tab Pantoprazole Sodium (Protonix Ec Tab) 40 mg PO DAILY [facility] Last Admin: 02/25/18 09:28 Dose: 40 mg Rosuvastatin Calcium (Crestor) 5 mg PO HS [facility] Last Admin: 02/24/18 21:52 Dose: 5 mg Fluticasone/Salmeterol (Advair Diskus 500/50) 1 puff INH RQ12 [facility] Last Admin: 02/25/18 08:08 Dose: 1 puff Sevelamer Carbonate (Renvela) 2.4 gm PO TIDCC [facility] Sodium Bicarbonate (Sodium Bicarbonate Tab) 650 mg PO Q8 [facility] Last Admin: 02/25/18 13:44 Dose: 650 mg Vitamin B Complex/Vit C/Folic Acid (Nephro-Vince) 1 tab PO 0800 [facility] Last Admin: 02/25/18 08:25 Dose: 1 tab - Labs Labs: 02/25/18 07:23 02/25/18 07:23 PT 11.4 SECONDS (9.7-12.2) 02/24/18 00:56 INR 1.0 02/24/18 00:56 APTT 33 SECONDS (21-34) 02/24/18 00:56 - Constitutional Appears: Non-toxic, No Acute Distress - Extremities Exam Additional comments: LE focused exam: VASC: DP/PT non-palpable b/l, temperature gradient warm to cool from proximal to distal b/l, Cap refill delayed to digits > 4 sec, no edema noted b/l. NEURO: Gross sensation intact, Protective sensation diminished DERM: Circular ulceration noted to the lateral aspect of 5th metatarsal base measuring approximately 0.5 cm in diameter with no depth. No drainage, No erythema, No fluctanance noted, No streaking. Ulcer is surrounded by hyperkeratotic area. No clinical signs of infection. MSK: Pain on palpating at site of ulceration. - Neurological Exam Neurological Exam: Alert, Awake, Oriented x3 - Psychiatric Exam Psychiatric exam: Normal Affect, Normal Mood Assessment and Plan - Assessment and Plan (Free Text) Assessment: 52 year old female with stable non-infected right foot ulceration Plan: Patient seen and evaluated with Dr. Mcmanus Labs, charts reviewed; Afebrile Ulcer appears non-infected clinically at this time Ulcer dressed with betadine, DSD Stable from podiatry standpoint Will continue to follow up patient while in house
[2018-02-25] MEDS: Sevelamer Carb 2.4 gm/Packet PO SCH (20:51)
[2018-02-25] MEDS: (Lantus) Insulin Glargine, Recombinant SC SCH (21:40)
--- NOTE | 2018-02-26 01:23 | PN ---
DATE: 02/25/2018 FOLLOWUP RENAL CONSULTATION LOCATION: The patient is located in room 660, bed B. REQUESTED BY: Wes Carrillo MD HISTORY OF PRESENT ILLNESS: Mrs. Orozco is a 52-year-old middle-aged [place] female with a history of longstanding hypertension, diabetes, coronary artery disease, hyperlipidemia, status post CABG, peripheral vascular disease, status post angioplasty, and nonhealing right foot ulcer on the lateral border who was admitted initially with headache and body aches on right side and also back pain. The patient was found to have worsening renal function and acidosis metabolic and also hyperkalemia, and I agreed for the placement of the AV fistula, status post left upper extremity AV fistula placement on 02/24/[address] Hatfield. The patient has complains of slight pain in the left upper extremity. Denies any nausea, vomiting, or diarrhea. Denies any chest pain or palpitation. Denies any abdominal pain. Complains of mild shortness of breath. PHYSICAL EXAMINATION: VITAL SIGNS: As follows. This morning, blood pressure 124/69, pulse about 78, respirations 18, temperature 97.9, saturation 98%. Height 5 feet 5 inches, weight is 132 pounds. GENERAL: Mrs. Orozco is a 52-year-old [place] female, moderately built, moderately nourished, not in distress. HEENT: Pupils normal and reactive to light and accommodation. Conjunctivae pink. Sclerae anicteric. Tongue is moist. Trachea is midline. LUNGS: Symmetric on both sides. Bilateral breath sounds present. Clear to auscultation. CVS: [place] at the fifth intercostal space, midclavicular line. S1, S2 audible. No murmur or gallop. ABDOMEN: Normal in appearance, soft, tympanitic. No guarding. No rigidity. No hepatosplenomegaly. CATIA DESIGNER: The patient is alert, awake, oriented times two to three. Sensory and motor system is grossly within normal limits. EXTREMITIES: No cyanosis, no clubbing, no edema. The patient has a dressing to the right foot. MEDICATIONS: Her current medications include as follows: Advair 1 puff every 12 hours, hydralazine 50 mg p.o. b.i.d., Coreg 12.5 mg p.o. b.i.d., Crestor 5 mg at bedtime, aspirin 81 mg daily, Feosol 325 mg 3 times daily, Flexeril 10 mg p.o. every 8 hours, Nephro-Vince 1 tablet daily, gabapentin 100 mg 3 times daily, amlodipine 10 mg p.o. daily, Percocet 1 tablet p.o. every 6 hours p.r.n. for pain, Procrit 10,000 units, Protonix 40 mg p.o. daily, Renvela 2.4 g p.o. 3 times daily with food, sodium bicarbonate 650 mg p.o. every 8 hours, and albuterol inhaler. LABORATORY DATA: Include as follows: As of 02/25/2018, WBC 8.4, hemoglobin 8.1, hematocrit is 24.4, platelets 297, MCV 77. Sodium 139, potassium 5.5, chloride 110, CO2 of 16, BUN 66, creatinine 4.4, glucose 162, calcium 7.9, phosphorus 8.1, ferritin 143. Total bili 0.3, AST 10, ALT 34, alkaline phos of 109, total protein 6, albumin is 3, B12 of 470, folic acid is 20. GFR is about 11. IMPRESSION: In summary, Mrs. Orozco is a 52-year-old [place] female with a history of hypertension, diabetes, hyperlipidemia, coronary artery disease, status post coronary artery bypass graft, peripheral vascular disease, status post angioplasty of the right lower extremity with nonhealing right foot ulcer, and also worsening renal function, nephrotic-range proteinuria. 1. Acute renal failure, on chronic kidney disease stage 4 versus progression of the chronic kidney disease with rapid deterioration, most likely secondary to metformin and also tramadol. We will discontinue metformin and tramadol. 2. Hypertension. Blood pressure is stable, now on the low side. We will decrease hydralazine to 25 mg p.o. every 8 hours, and we will hold for systolic blood pressure less than 130 and also we will hold Coreg for less than 130 and heart rate less than 50. We will hold amlodipine for blood pressure less than 100. 3. Anemia secondary to chronic kidney disease. Continue Nephrocaps and Feosol and also Epogen 10,000 units 3 times a week. 4. Metabolic acidosis. Continue sodium bicarb. 5. Hyperkalemia, secondary to renal failure with worsening renal function. We will continue to monitor BMP in a.m. and advised low-sodium, low potassium diet. If renal function continued to deteriorate and became short of breath, the patient may need initiation of renal replacement therapy. Discussed with the patient regarding possible need for hemodialysis. We will follow with you. Thank you for allowing me to participate in your patient's care. Vasiliy Emery MD
--- NOTE | 2018-02-26 07:32 | CP.PCM.PN ---
Addendum entered and electronically signed by Esvin RoquemarcDO 02/26/18 12:39: K 6.1 Cr 5.6 Worsening BLAYNE -Possible Permacath tomorrow -NPO after midnight DW Dr. Hatfield Original Note: Subjective - Date & Time of Evaluation Date of Evaluation: 02/26/18 Time of Evaluation: 07:30 - Subjective Subjective: Vasc Sx: Dr Hatfield Pt S&E. POD#2 s/p left AVF. Denies pain, swelling or numbness to left hand. Palpable pulses. Palpable thrill. Objective - Vital Signs/Intake and Output Vital Signs (last 24 hours): Temp Pulse Resp BP Pulse Ox 97.7 F 76 20 132/74 96 02/25/18 23:00 02/26/18 05:42 02/25/18 23:00 02/26/18 05:42 02/25/18 23:00 Intake and Output: 02/26/18 02/26/18 06:59 18:59 Intake Total 120 Balance 120 - Medications Medications: Current Medications Albuterol (Ventolin Hfa 90 Mcg/Actuation (8 G)) 1 puff IH RQID PRN PRN Reason: Wheezing Last Admin: 02/23/18 19:31 Dose: 1 puff Amlodipine Besylate (Norvasc) 10 mg PO DAILY [facility] Aspirin (Ecotrin) 81 mg PO DAILY [facility] Last Admin: 02/25/18 09:28 Dose: 81 mg Carvedilol (Coreg) 12.5 mg PO BID [facility] Last Admin: 02/25/18 17:47 Dose: Not Given Cyclobenzaprine HCl (Flexeril) 10 mg PO Q8 PRN PRN Reason: Muscle spasm Last Admin: 02/23/18 17:51 Dose: 10 mg Epoetin Tito (Procrit) 10,000 unit SC MWF [facility] Last Admin: 02/24/18 21:52 Dose: 10,000 unit Ferrous Sulfate (Feosol) 325 mg PO TID [facility] Last Admin: 02/25/18 17:47 Dose: Not Given Gabapentin (Neurontin) 100 mg PO TID [facility] Last Admin: 02/25/18 17:48 Dose: Not Given Hydralazine HCl (Apresoline) 25 mg PO Q8 [facility] Last Admin: 02/26/18 05:50 Dose: 25 mg Insulin Aspart (Novolog) 0 unit SC ACHS [facility] PRN Reason: Protocol Last Admin: 02/25/18 21:40 Dose: Not Given Insulin Glargine (Lantus) 24 unit SC HS [facility] Last Admin: 02/25/18 21:40 Dose: Not Given Oxycodone/Acetaminophen (Percocet 5/325 Mg Tab) 1 tab PO Q4H PRN PRN Reason: Pain, moderate (4-7) Stop: 02/28/18 12:47 Last Admin: 02/25/18 21:36 Dose: 1 tab Pantoprazole Sodium (Protonix Ec Tab) 40 mg PO DAILY [facility] Last Admin: 02/25/18 09:28 Dose: 40 mg Rosuvastatin Calcium (Crestor) 5 mg PO HS [facility] Last Admin: 02/25/18 21:40 Dose: Not Given Fluticasone/Salmeterol (Advair Diskus 500/50) 1 puff INH RQ12 [facility] Last Admin: 02/25/18 19:34 Dose: 1 puff Sevelamer Carbonate (Renvela) 2.4 gm PO TIDCC [facility] Last Admin: 02/25/18 20:51 Dose: Not Given Sodium Bicarbonate (Sodium Bicarbonate Tab) 650 mg PO Q8 [facility] Last Admin: 02/26/18 05:50 Dose: 650 mg Vitamin B Complex/Vit C/Folic Acid (Nephro-Vince) 1 tab PO 0800 [facility] Last Admin: 02/25/18 08:25 Dose: 1 tab - Labs Labs: 02/25/18 07:23 02/25/18 07:23 PT 11.4 SECONDS (9.7-12.2) 02/24/18 00:56 INR 1.0 02/24/18 00:56 APTT 33 SECONDS (21-34) 02/24/18 00:56 - Constitutional Appears: Non-toxic - Respiratory Exam Respiratory Exam: absent: Respiratory Distress - Cardiovascular Exam Cardiovascular Exam: REGULAR RHYTHM - GI/Abdominal Exam GI & Abdominal Exam: Soft. absent: Distended - Extremities Exam Extremities Exam: Normal Inspection. absent: Pedal Edema Assessment and Plan - Assessment and Plan (Free Text) Assessment: 52F POD#2 s/p left AVF Plan: no further intervention planned f/u in Dr Hatfield's office upon discharge will d/w Dr Alysia Ramos, PGY4
[2018-02-26] MEDS: (Novolog) Insulin Aspart, Recombinant 100 u/ml 10 ml vial SC SCH ×4 (07:45→22:01)
[2018-02-26] MEDS: Albuterol HFA 90 mcg/actuation (8 g) IH PRN ×2 (08:20→20:05)
[2018-02-26] MEDS: Fluticasone-Salmeterol 500-50mcg Diskus INH SCH ×2 (08:20→20:05)
[2018-02-26 08:24] LABS: ALB/GLOB RATIO 0.8 (1.0-2.1); ALBUMIN 2.9 g/dL (3.5-5.0); CALCIUM 8.8 mg/dl (8.6-10.4)
[2018-02-26] MEDS: Sevelamer Carb 2.4 gm/Packet PO SCH ×3 (08:30→17:19)
[2018-02-26] MEDS: Multivitamin Vitamin B Complex (Nephro-Vite) Tab PO SCH (08:42)
[2018-02-26] MEDS: Pantoprazole 40 mg EC Tab PO SCH (10:38)
[2018-02-26] MEDS ORDERED: Sod Polystyrene Sulf 15 gm/60 ml Susp PO ONE (11:47)
[2018-02-26] MEDS ORDERED: Tramadol 25 mg PO PRN (12:38)
--- NOTE | 2018-02-26 14:46 | CP.PCM.PN ---
Subjective - Date & Time of Evaluation Date of Evaluation: 02/26/18 Time of Evaluation: 15:00 - Subjective Subjective: Podiatry Progress note: Dr. Mcmanus 52[address] Mcmanus at bedside for right foot ulceration. Patient is seen resting comfortably in bed, in NAD. Patient denies pain to the right foot. Patient reports feeling cold. Dressing is clean dry and intact, Denies of recent F/N/V/C/SOB/CP/headache. Objective - Vital Signs/Intake and Output Vital Signs (last 24 hours): Temp Pulse Resp BP Pulse Ox 98.1 F 75 20 123/74 96 02/26/18 08:00 02/26/18 08:00 02/26/18 08:00 02/26/18 13:37 02/26/18 08:00 Intake and Output: 02/26/18 02/26/18 06:59 18:59 Intake Total 120 Balance 120 - Medications Medications: Current Medications Albuterol (Ventolin Hfa 90 Mcg/Actuation (8 G)) 1 puff IH RQID PRN PRN Reason: Wheezing Last Admin: 02/26/18 08:20 Dose: 1 puff Amlodipine Besylate (Norvasc) 10 mg PO DAILY [facility] Last Admin: 02/26/18 10:35 Dose: 10 mg Aspirin (Ecotrin) 81 mg PO DAILY [facility] Last Admin: 02/26/18 10:38 Dose: 81 mg Carvedilol (Coreg) 12.5 mg PO BID [facility] Last Admin: 02/26/18 10:39 Dose: 12.5 mg Cyclobenzaprine HCl (Flexeril) 10 mg PO Q8 PRN PRN Reason: Muscle spasm Last Admin: 02/23/18 17:51 Dose: 10 mg Epoetin Itto (Procrit) 10,000 unit SC MWF [facility] Last Admin: 02/24/18 21:52 Dose: 10,000 unit Ferrous Sulfate (Feosol) 325 mg PO TID [facility] Last Admin: 02/26/18 13:32 Dose: 325 mg Gabapentin (Neurontin) 100 mg PO TID [facility] Last Admin: 02/26/18 13:33 Dose: 100 mg Hydralazine HCl (Apresoline) 25 mg PO Q8 [facility] Last Admin: 02/26/18 13:33 Dose: 25 mg Insulin Aspart (Novolog) 0 unit SC ACHS [facility] PRN Reason: Protocol Last Admin: 02/26/18 12:19 Dose: 2 units Insulin Glargine (Lantus) 24 unit SC HS [facility] Last Admin: 02/25/18 21:40 Dose: Not Given Oxycodone/Acetaminophen (Percocet 5/325 Mg Tab) 1 tab PO Q4H PRN PRN Reason: Pain, moderate (4-7) Stop: 02/28/18 12:47 Last Admin: 02/25/18 21:36 Dose: 1 tab Pantoprazole Sodium (Protonix Ec Tab) 40 mg PO DAILY [facility] Last Admin: 02/26/18 10:38 Dose: 40 mg Rosuvastatin Calcium (Crestor) 5 mg PO HS [facility] Last Admin: 02/25/18 21:40 Dose: Not Given Fluticasone/Salmeterol (Advair Diskus 500/50) 1 puff INH RQ12 [facility] Last Admin: 02/26/18 08:20 Dose: 1 puff Sevelamer Carbonate (Renvela) 2.4 gm PO TIDCC [facility] Last Admin: 02/26/18 13:00 Dose: 2.4 gm Sodium Bicarbonate (Sodium Bicarbonate Tab) 650 mg PO Q8 [facility] Last Admin: 02/26/18 13:33 Dose: 650 mg Tramadol HCl (Ultram) 25 mg PO TID PRN PRN Reason: Pain, Mild (1-3) Vitamin B Complex/Vit C/Folic Acid (Nephro-Vince) 1 tab PO 0800 [facility] Last Admin: 02/26/18 08:42 Dose: 1 tab - Labs Labs: 02/25/18 07:23 02/26/18 07:46 PT 11.4 SECONDS (9.7-12.2) 02/24/18 00:56 INR 1.0 02/24/18 00:56 APTT 33 SECONDS (21-34) 02/24/18 00:56 - Constitutional Appears: Non-toxic, No Acute Distress - Extremities Exam Extremities Exam: absent: Calf Tenderness Additional comments: LE focused exam: VASC: DP/PT non-palpable b/l, temperature gradient warm to cool from proximal to distal b/l, Cap refill delayed to digits > 4 sec, no edema noted b/l. NEURO: Gross sensation intact, Protective sensation diminished DERM: Circular ulceration noted to the lateral aspect of 5th metatarsal base mary suring approximately 0.5 cm in diameter with no depth. No drainage, No erythema, No fluctanance noted, No streaking. Ulcer is surrounded by hyperkeratotic area. No clinical signs of infection. MSK: Very minimal pain on palpating at site of ulceration. - Neurological Exam Neurological Exam: Alert, Awake, Oriented x3 - Psychiatric Exam Psychiatric exam: Normal Affect, Normal Mood Assessment and Plan - Assessment and Plan (Free Text) Assessment: 52 year old female with stable non-infected right foot ulceration Plan: Patient seen and evaluated with Dr. Mcmanus Labs, charts reviewed; Afebrile Ulcer appears non-infected clinically at this time Ulcer dressed with betadine, DSD Stable from podiatry standpoint Will continue to follow up patient while in house
--- NOTE | 2018-02-26 15:46 | CP.PCM.PN ---
Subjective - Date & Time of Evaluation Date of Evaluation: 02/26/18 Time of Evaluation: 15:44 - Subjective Subjective: pt is seen and examine, follow up consult is dictated # jem on ckd-4 met. acidosis hyperkalemia s/p kayexalate 30 gm po x 1 repeat bmp guidry cath for uop irf renal function does not improve will need to start on HD in am Objective - Vital Signs/Intake and Output Vital Signs (last 24 hours): Temp Pulse Resp BP Pulse Ox 98.1 F 75 20 123/74 96 02/26/18 08:00 02/26/18 08:00 02/26/18 08:00 02/26/18 13:37 02/26/18 08:00 Intake and Output: 02/26/18 02/26/18 06:59 18:59 Intake Total 120 Balance 120 - Medications Medications: Current Medications Albuterol (Ventolin Hfa 90 Mcg/Actuation (8 G)) 1 puff IH RQID PRN PRN Reason: Wheezing Last Admin: 02/26/18 08:20 Dose: 1 puff Amlodipine Besylate (Norvasc) 10 mg PO DAILY [facility] Last Admin: 02/26/18 10:35 Dose: 10 mg Aspirin (Ecotrin) 81 mg PO DAILY [facility] Last Admin: 02/26/18 10:38 Dose: 81 mg Carvedilol (Coreg) 12.5 mg PO BID [facility] Last Admin: 02/26/18 10:39 Dose: 12.5 mg Cyclobenzaprine HCl (Flexeril) 10 mg PO Q8 PRN PRN Reason: Muscle spasm Last Admin: 02/23/18 17:51 Dose: 10 mg Epoetin Tito (Procrit) 10,000 unit SC MWF [facility] Last Admin: 02/24/18 21:52 Dose: 10,000 unit Ferrous Sulfate (Feosol) 325 mg PO TID [facility] Last Admin: 02/26/18 13:32 Dose: 325 mg Gabapentin (Neurontin) 100 mg PO TID [facility] Last Admin: 02/26/18 13:33 Dose: 100 mg Hydralazine HCl (Apresoline) 25 mg PO Q8 [facility] Last Admin: 02/26/18 13:33 Dose: 25 mg Insulin Aspart (Novolog) 0 unit SC ACHS [facility] PRN Reason: Protocol Last Admin: 02/26/18 12:19 Dose: 2 units Insulin Glargine (Lantus) 24 unit SC HS [facility] Last Admin: 02/25/18 21:40 Dose: Not Given Oxycodone/Acetaminophen (Percocet 5/325 Mg Tab) 1 tab PO Q4H PRN PRN Reason: Pain, moderate (4-7) Stop: 02/28/18 12:47 Last Admin: 02/25/18 21:36 Dose: 1 tab Pantoprazole Sodium (Protonix Ec Tab) 40 mg PO DAILY [facility] Last Admin: 02/26/18 10:38 Dose: 40 mg Rosuvastatin Calcium (Crestor) 5 mg PO HS [facility] Last Admin: 02/25/18 21:40 Dose: Not Given Fluticasone/Salmeterol (Advair Diskus 500/50) 1 puff INH RQ12 [facility] Last Admin: 02/26/18 08:20 Dose: 1 puff Sevelamer Carbonate (Renvela) 2.4 gm PO TIDCC [facility] Last Admin: 02/26/18 13:00 Dose: 2.4 gm Sodium Bicarbonate (Sodium Bicarbonate Tab) 650 mg PO Q8 [facility] Last Admin: 02/26/18 13:33 Dose: 650 mg Vitamin B Complex/Vit C/Folic Acid (Nephro-Vince) 1 tab PO 0800 [facility] Last Admin: 02/26/18 08:42 Dose: 1 tab - Labs Labs: 02/25/18 07:23 02/26/18 07:46 PT 11.4 SECONDS (9.7-12.2) 02/24/18 00:56 INR 1.0 02/24/18 00:56 APTT 33 SECONDS (21-34) 02/24/18 00:56
--- NOTE | 2018-02-26 15:46 | CP.PCM.PN ---
Subjective - Date & Time of Evaluation Date of Evaluation: 02/25/18 Time of Evaluation: 09:00 - Subjective Subjective: persistent pain at surgical site no fever s/p AV Fistula Objective - Vital Signs/Intake and Output Vital Signs (last 24 hours): Temp Pulse Resp BP Pulse Ox 98.1 F 75 20 123/74 96 02/26/18 08:00 02/26/18 08:00 02/26/18 08:00 02/26/18 13:37 02/26/18 08:00 Intake and Output: 02/26/18 02/26/18 06:59 18:59 Intake Total 120 Balance 120 - Medications Medications: Current Medications Albuterol (Ventolin Hfa 90 Mcg/Actuation (8 G)) 1 puff IH RQID PRN PRN Reason: Wheezing Last Admin: 02/26/18 08:20 Dose: 1 puff Amlodipine Besylate (Norvasc) 10 mg PO DAILY [facility] Last Admin: 02/26/18 10:35 Dose: 10 mg Aspirin (Ecotrin) 81 mg PO DAILY [facility] Last Admin: 02/26/18 10:38 Dose: 81 mg Carvedilol (Coreg) 12.5 mg PO BID [facility] Last Admin: 02/26/18 10:39 Dose: 12.5 mg Cyclobenzaprine HCl (Flexeril) 10 mg PO Q8 PRN PRN Reason: Muscle spasm Last Admin: 02/23/18 17:51 Dose: 10 mg Epoetin Tito (Procrit) 10,000 unit SC MWF [facility] Last Admin: 02/24/18 21:52 Dose: 10,000 unit Ferrous Sulfate (Feosol) 325 mg PO TID [facility] Last Admin: 02/26/18 13:32 Dose: 325 mg Gabapentin (Neurontin) 100 mg PO TID [facility] Last Admin: 02/26/18 13:33 Dose: 100 mg Hydralazine HCl (Apresoline) 25 mg PO Q8 [facility] Last Admin: 02/26/18 13:33 Dose: 25 mg Insulin Aspart (Novolog) 0 unit SC ACHS [facility] PRN Reason: Protocol Last Admin: 02/26/18 12:19 Dose: 2 units Insulin Glargine (Lantus) 24 unit SC HS [facility] Last Admin: 02/25/18 21:40 Dose: Not Given Oxycodone/Acetaminophen (Percocet 5/325 Mg Tab) 1 tab PO Q4H PRN PRN Reason: Pain, moderate (4-7) Stop: 02/28/18 12:47 Last Admin: 02/25/18 21:36 Dose: 1 tab Pantoprazole Sodium (Protonix Ec Tab) 40 mg PO DAILY [facility] Last Admin: 02/26/18 10:38 Dose: 40 mg Rosuvastatin Calcium (Crestor) 5 mg PO HS [facility] Last Admin: 02/25/18 21:40 Dose: Not Given Fluticasone/Salmeterol (Advair Diskus 500/50) 1 puff INH RQ12 [facility] Last Admin: 02/26/18 08:20 Dose: 1 puff Sevelamer Carbonate (Renvela) 2.4 gm PO TIDCC [facility] Last Admin: 02/26/18 13:00 Dose: 2.4 gm Sodium Bicarbonate (Sodium Bicarbonate Tab) 650 mg PO Q8 [facility] Last Admin: 02/26/18 13:33 Dose: 650 mg Vitamin B Complex/Vit C/Folic Acid (Nephro-Vince) 1 tab PO 0800 [facility] Last Admin: 02/26/18 08:42 Dose: 1 tab - Labs Labs: 02/25/18 07:23 02/26/18 07:46 PT 11.4 SECONDS (9.7-12.2) 02/24/18 00:56 INR 1.0 02/24/18 00:56 APTT 33 SECONDS (21-34) 02/24/18 00:56 - Constitutional Appears: Non-toxic - Head Exam Head Exam: NORMAL INSPECTION - Eye Exam Eye Exam: absent: Scleral icterus - ENT Exam ENT Exam: Mucous Membranes Moist - Neck Exam Neck Exam: Full ROM - Respiratory Exam Respiratory Exam: Decreased Breath Sounds - Cardiovascular Exam Cardiovascular Exam: REGULAR RHYTHM - GI/Abdominal Exam GI & Abdominal Exam: Soft - Extremities Exam Extremities Exam: Full ROM. absent: Pedal Edema - Neurological Exam Neurological Exam: Alert, Awake, Oriented x3 Assessment and Plan - Assessment and Plan (Free Text) Assessment: CRF CAD PVD T2dm HTN Plan: Pain meds post-op care Cont meds
[2018-02-26] MEDS: Oxycodone/Acetaminophen 5/325 mg Tab PO PRN (16:49)
--- NOTE | 2018-02-26 17:07 | CP.PCM.PN ---
Subjective - Date & Time of Evaluation Date of Evaluation: 02/26/18 Time of Evaluation: 08:00 - Subjective Subjective: weak and lethargic hyperkalemia noted getting kaexalate will likely need HD Objective - Vital Signs/Intake and Output Vital Signs (last 24 hours): Temp Pulse Resp BP Pulse Ox 98.1 F 75 20 123/74 96 02/26/18 08:00 02/26/18 08:00 02/26/18 08:00 02/26/18 13:37 02/26/18 08:00 Intake and Output: 02/26/18 02/26/18 06:59 18:59 Intake Total 120 Balance 120 - Medications Medications: Current Medications Albuterol (Ventolin Hfa 90 Mcg/Actuation (8 G)) 1 puff IH RQID PRN PRN Reason: Wheezing Last Admin: 02/26/18 08:20 Dose: 1 puff Amlodipine Besylate (Norvasc) 10 mg PO DAILY [facility] Last Admin: 02/26/18 10:35 Dose: 10 mg Aspirin (Ecotrin) 81 mg PO DAILY [facility] Last Admin: 02/26/18 10:38 Dose: 81 mg Carvedilol (Coreg) 12.5 mg PO BID [facility] Last Admin: 02/26/18 10:39 Dose: 12.5 mg Cyclobenzaprine HCl (Flexeril) 10 mg PO Q8 PRN PRN Reason: Muscle spasm Last Admin: 02/23/18 17:51 Dose: 10 mg Epoetin Tito (Procrit) 10,000 unit SC MWF [facility] Last Admin: 02/24/18 21:52 Dose: 10,000 unit Ferrous Sulfate (Feosol) 325 mg PO TID [facility] Last Admin: 02/26/18 13:32 Dose: 325 mg Gabapentin (Neurontin) 100 mg PO TID [facility] Last Admin: 02/26/18 13:33 Dose: 100 mg Hydralazine HCl (Apresoline) 25 mg PO Q8 [facility] Last Admin: 02/26/18 13:33 Dose: 25 mg Insulin Aspart (Novolog) 0 unit SC ACHS [facility] PRN Reason: Protocol Last Admin: 02/26/18 12:19 Dose: 2 units Insulin Glargine (Lantus) 24 unit SC HS [facility] Last Admin: 02/25/18 21:40 Dose: Not Given Oxycodone/Acetaminophen (Percocet 5/325 Mg Tab) 1 tab PO Q4H PRN PRN Reason: Pain, moderate (4-7) Stop: 02/28/18 12:47 Last Admin: 02/26/18 16:49 Dose: 1 tab Pantoprazole Sodium (Protonix Ec Tab) 40 mg PO DAILY [facility] Last Admin: 02/26/18 10:38 Dose: 40 mg Rosuvastatin Calcium (Crestor) 5 mg PO HS [facility] Last Admin: 02/25/18 21:40 Dose: Not Given Fluticasone/Salmeterol (Advair Diskus 500/50) 1 puff INH RQ12 [facility] Last Admin: 02/26/18 08:20 Dose: 1 puff Sevelamer Carbonate (Renvela) 2.4 gm PO TIDCC [facility] Last Admin: 02/26/18 13:00 Dose: 2.4 gm Sodium Bicarbonate (Sodium Bicarbonate Tab) 650 mg PO Q8 [facility] Last Admin: 02/26/18 13:33 Dose: 650 mg Vitamin B Complex/Vit C/Folic Acid (Nephro-Vince) 1 tab PO 0800 [facility] Last Admin: 02/26/18 08:42 Dose: 1 tab - Labs Labs: 02/25/18 07:23 02/26/18 07:46 PT 11.4 SECONDS (9.7-12.2) 02/24/18 00:56 INR 1.0 02/24/18 00:56 APTT 33 SECONDS (21-34) 02/24/18 00:56 - Constitutional Appears: Chronically Ill - Head Exam Head Exam: NORMOCEPHALIC - Eye Exam Eye Exam: PERRL - ENT Exam ENT Exam: Normal External Ear Exam - Neck Exam Neck Exam: absent: Lymphadenopathy - Respiratory Exam Respiratory Exam: Decreased Breath Sounds - Cardiovascular Exam Cardiovascular Exam: REGULAR RHYTHM - GI/Abdominal Exam GI & Abdominal Exam: Distended, Soft. absent: Tenderness - Rectal Exam Rectal Exam: Deferred - Exam Exam: NORMAL INSPECTION - Extremities Exam Extremities Exam: absent: Pedal Edema - Back Exam Back Exam: absent: CVA tenderness (L), CVA tenderness (R) - Neurological Exam Neurological Exam: Alert, Awake, CN II-XII Intact, Oriented x3 - Psychiatric Exam Psychiatric exam: Depressed - Skin Skin Exam: Dry Assessment and Plan (1) BLAYNE (acute kidney injury) Status: Acute (2) Hypertension Status: Chronic (3) CKD (chronic kidney disease) Status: Acute (4) Diabetes mellitus Status: Acute (5) Non-healing ulcer of foot Status: Acute (6) PVD (peripheral vascular disease) Status: Acute (7) Renal insufficiency Status: Acute (8) Diabetes mellitus type 2 in nonobese Status: Chronic - Assessment and Plan (Free Text) Assessment: worsening renal function will need HD fall precautions dr casiano to [facility]
[2018-02-26] MEDS: (Lantus) Insulin Glargine, Recombinant SC SCH (22:01)
[2018-02-26 22:44] LABS: CALCIUM 8.9 mg/dl (8.6-10.4)
--- NOTE | 2018-02-27 00:01 | PN ---
DATE: 02/26/2018 FOLLOWUP RENAL CONSULTATION LOCATION: The patient is located in room 660, bed B. REASON FOR FOLLOWUP: Acute renal failure, chronic kidney disease, nephrotic-range proteinuria, metabolic acidosis, hyperkalemia. SUBJECTIVE: Mrs. Orozco is a 52-year-old middle-aged [place]ese female with a past medical history significant for longstanding hypertension, diabetes, chronic kidney disease stage IV with anemia, metabolic acidosis and massive proteinuria who was admitted with headache and right-sided body pains and found to have a worsening renal function, since admission her renal function is gradually deteriorating. This morning, her potassium is 6.1 and creatinine went up to 5.6 and BUN 75. The patient is not in acute distress. Complains of pain in the right side of body, no swelling. No shortness of breath. Status post Kayexalate 30 g p.o. x1 dose. The patient moved bowels two times after the Kayexalate. PHYSICAL EXAMINATION: VITAL SIGNS: As follows: Blood pressure 127/75, pulse 80, respirations 20, saturation 94%, and temperature 97.9. Height 5 feet 5 inches. Weight is 132 pounds. GENERAL: Mrs. Orozco is a 52-year-old [place] female, moderately built, moderately nourished, not in distress. HEENT: Pupils are normal and reactive to light and accommodation. Conjunctivae pink. Sclerae anicteric. Tongue is moist and trachea is midline. LUNGS: Symmetric on both sides. Bilateral breath sounds present. Clear to auscultation. CARDIOVASCULAR SYSTEM: Carver at the fifth intercostal space, midclavicular line. S1, S2 audible. No murmur or gallop. ABDOMEN: Normal in appearance, soft, tympanitic. No guarding. No rigidity. No hepatosplenomegaly. CENTRAL NERVOUS SYSTEM: The patient is alert, awake, oriented x2 to 3. Sensory and motor system is grossly within normal limits. EXTREMITIES: No cyanosis, no clubbing, no edema. The patient has a dressing to the right foot. Left upper extremity, the patient has a dressing to the AV fistula site with good bruit. CURRENT MEDICATIONS: Include as follows: Advair inhaler one puff every 12 hours, hydralazine 25 mg p.o. every 8 hours, Coreg 12.5 mg p.o. b.i.d., Crestor 5 mg at bedtime, aspirin 81 mg daily, Feosol 325 mg p.o. t.i.d., Flexeril 10 mg p.o. every 8 hours p.r.n., Lantus 24 units subcu at bedtime, Nephro-Vince one tablet daily, Neurontin 100 mg p.o. t.i.d., Norvasc 10 mg daily, Percocet one tablet p.o. every 4 hours p.r.n., Procrit 10,000 units three times a week, Protonix 40 mg p.o. daily, Renvela 2.4 g p.o. t.i.d. with food, sodium bicarbonate 650 mg p.o. t.i.d., and albuterol inhaler. LABORATORY DATA: Include as follows: Sodium 137, potassium 6.1, chloride 107, CO2 of 17, BUN 75, creatinine 5.6, glucose 140, calcium 8.8. Total bili 0.3, AST 16, ALT 31, alkaline phosphatase 127, total protein 6.5, albumin is 2.9. ASSESSMENT: In summary, Mrs. Orozco is a 52-year-old middle-aged Burmese female with hypertension, diabetes, hyperlipidemia, chronic kidney disease, massive proteinuria who was admitted with right-sided body pains and headache and worsening renal function now with creatinine of 5.6, BUN of 75, and potassium of 6.1. 1. Acute renal failure on chronic kidney disease stage 4 versus progression of the chronic kidney disease 4. 2. End-stage renal disease, rule out acute tubular necrosis. 3. Hyperkalemia. 4. Metabolic acidosis. 5. Anemia. PLAN: The patient was given Kayexalate 30 g p.o. x1 dose. Continue sodium bicarbonate tablet. Continue Epogen. Discussed with the patient for possible need for hemodialysis if the renal function does not improve, and also we will place a Alvarez catheter placement to rule out obstructive uropathy. Case was discussed with Dr. Carrillo in rounds. We will follow with you. Thank you for allowing me to participate in your patient's care. We will repeat BMP tonight. Vasiliy Emery MD [facility] # [id number] [facility]
[2018-02-27] MEDS: (Novolog) Insulin Aspart, Recombinant 100 u/ml 10 ml vial SC SCH ×4 (07:41→22:02)
[2018-02-27 08:32] LABS: BASO # 0.1 K/uL (0.0-0.2); BASO % 1.1 % (0.0-2.0); EOS # 0.3 K/uL (0.0-0.7); EOS % 3.9 % (0.0-4.0); HEMOGLOBIN 7.9 g/dL (11.0-16.0); LYMPH # 1.3 K/uL (1.0-4.3); LYMPH % 18.3 % (20.0-40.0); MEAN CELL VOLUME 76.1 fL (81.0-99.0); MEAN CORPUSCULAR HEMOGLOBIN 25.3 pg (27.0-31.0); MEAN CORPUSCULAR HGB CONC 33.2 g/dL (33.0-37.0); MEAN PLATELET VOLUME 8.8 fL (7.2-11.7); MONO # 0.7 K/uL (0.0-0.8); MONO % 9.7 % (0.0-10.0); NEUT # 4.6 K/uL (1.8-7.0); NRBC % 0.2 % (0.0-2.0); RBC 3.11 Mil/uL (3.80-5.20); RED CELL DISTRIBUTION WIDTH 17.9 % (11.5-14.5); WHITE BLOOD COUNT 6.9 K/uL (4.8-10.8)
[2018-02-27 08:38] LABS: ALB/GLOB RATIO 0.9 (1.0-2.1); ALBUMIN 2.9 g/dL (3.5-5.0); CALCIUM 8.7 mg/dl (8.6-10.4)
--- NOTE | 2018-02-27 08:43 | PN ---
DATE: 02/24/2018 FOLLOWUP RENAL CONSULTATION LOCATION: The patient is located in room 660, bed B. SUBJECTIVE: The patient is a 52-year-old middle-aged [place]ese female with a history of longstanding diabetes more than 15 years, hypertension, coronary artery disease, status post CABG, peripheral vascular disease, status post angioplasty with massive proteinuria, and chronic kidney disease who was admitted with headache, uncontrolled hypertension, right-sided body pains and back pain and also worsening renal function, low H and H, also low bicarb and hyperkalemia. The patient agreed for the hemodialysis access placement for the near future hemodialysis. The patient underwent for the AV fistula placement by Dr. Hatfield this morning. The patient complains of slight pain in the left upper extremity. No chest pain. No palpitation. Mild shortness of breath. PHYSICAL EXAMINATION: VITAL SIGNS: As follows: Blood pressure 135/72, pulse 77, respirations 20, temperature 98.4, saturation 97%. Height 5 feet 5 inches. Weight is 132 pounds. GENERAL: The patient is a 52-year-old middle-aged [place]ese female, moderately built, moderately nourished, not in acute distress. Questionable mild dyspnea on exertion and orthopnea. HEENT: Pupils are normal and reactive to light and accommodation. Conjunctivae slightly pale. Sclerae anicteric. Tongue is moist and trachea is midline. LUNGS: Symmetric on both sides. Bilateral breath sounds. Clear to auscultation. No wheeze. CARDIOVASCULAR SYSTEM: Sherburn at the fifth intercostal space, midclavicular line. S1, S2 audible. No murmur or gallop. ABDOMEN: Normal in appearance. Soft, tympanitic. No guarding. No rigidity. No hepatosplenomegaly. CENTRAL NERVOUS SYSTEM: The patient is alert, awake, oriented x3. Nonfocal neuro examination. Cranial nerves II-XII grossly intact. Sensory and motor system is within normal limits. EXTREMITIES: No cyanosis, no clubbing, no edema. The patient has a dressing to the left upper extremity and also right foot. MEDICATIONS: Her current medications include as follows: Advair inhaler, hydralazine, Coreg, Crestor, aspirin, Feosol, Flexeril, Lantus, Nephro-Vince, gabapentin, amlodipine, NovoLog per sliding scale, Procrit 10,000 units three times a week, Protonix 40 mg p.o. daily, sodium bicarbonate, tramadol, and albuterol inhaler. LABORATORY DATA: Include as follows as of 02/24/2018: WBC 9.9, hemoglobin 7, hematocrit is 21.6, MCV of 74.5, platelets 282. PT 11.4, PTT 33. Sodium 139, potassium 5.2, chloride 112, bicarb is 17, BUN 59, creatinine 3.7, glucose 238, calcium 8.7. Urine beta hCG is negative. ASSESSMENT: In summary, the patient is a 52-year-old middle-aged [place]ese female with a history of hypertension, diabetes, coronary artery disease, status post coronary artery bypass grafting, hyperlipidemia, peripheral vascular disease, status post angioplasty with right foot ulcer on the lateral border, chronic kidney disease, massive proteinuria with poor vision and worsening renal function, rapid deteriorating renal function, low hemoglobin and hematocrit and low bicarbonate and high potassium. 1. Acute renal failure on chronic kidney disease stage 4 versus progression of the chronic kidney disease 4 to end-stage renal disease. 2. Anemia secondary to renal failure. 3. Metabolic acidosis. 4. Hypertension. 5. Uncontrolled diabetes. 6. Massive proteinuria. All the serological workup is within normal limits. Most likely, chronic kidney disease and proteinuria is secondary to poorly controlled diabetes, cannot rule out underlying chronic glomerulonephritis such as focal segmental glomerulosclerosis. PLAN: The patient underwent AV fistula placement this morning. Continue keep left upper extremity elevated , as needed. Repeat BMP and CBC in a.m. Continue to monitor electrolytes. Started on Epogen 10,000 units three times a week. May need transfusion if the patient is symptomatic with dyspnea on exertion. We will follow with you. Thank you for allowing me to participate in your patient's care. Vasiliy Emery MD [facility]
[2018-02-27] MEDS: Multivitamin Vitamin B Complex (Nephro-Vite) Tab PO SCH (08:55)
[2018-02-27] MEDS: Sevelamer Carb 2.4 gm/Packet PO SCH ×3 (08:55→21:03)
[2018-02-27] MEDS: EPOETIN ALFA 10,000 UNIT/ML ML SC SCH (10:00)
--- NOTE | 2018-02-27 10:14 | CP.PCM.PN ---
Subjective - Date & Time of Evaluation Date of Evaluation: 02/27/18 Time of Evaluation: 10:12 - Subjective Subjective: Podiatry Progress note: Dr. Mcmanus 52 year old female evaluated at bedside for right foot ulceration. Patient is seen resting comfortably in bed, in NAD. Patient denies pain to the right foot. Dressing is clean dry and intact, Denies of recent F/N/V/C/SOB/CP/headache. Objective - Vital Signs/Intake and Output Vital Signs (last 24 hours): Temp Pulse Resp BP Pulse Ox 97.8 F 81 20 133/71 96 02/27/18 07:05 02/27/18 07:05 02/27/18 07:05 02/27/18 07:05 02/27/18 07:05 Intake and Output: 02/27/18 02/27/18 06:59 18:59 Intake Total 350 Output Total 390 Balance -40 - Medications Medications: Current Medications Albuterol (Ventolin Hfa 90 Mcg/Actuation (8 G)) 1 puff IH RQID PRN PRN Reason: Wheezing Last Admin: 02/26/18 20:05 Dose: 1 puff Amlodipine Besylate (Norvasc) 10 mg PO DAILY [facility] Last Admin: 02/26/18 10:35 Dose: 10 mg Aspirin (Ecotrin) 81 mg PO DAILY [facility] Last Admin: 02/26/18 10:38 Dose: 81 mg Carvedilol (Coreg) 12.5 mg PO BID [facility] Last Admin: 02/26/18 17:19 Dose: 12.5 mg Cyclobenzaprine HCl (Flexeril) 10 mg PO Q8 PRN PRN Reason: Muscle spasm Last Admin: 02/23/18 17:51 Dose: 10 mg Epoetin Tito (Procrit) 10,000 unit SC MWF [facility] Last Admin: 02/24/18 21:52 Dose: 10,000 unit Ferrous Sulfate (Feosol) 325 mg PO TID [facility] Last Admin: 02/26/18 17:18 Dose: 325 mg Gabapentin (Neurontin) 100 mg PO TID [facility] Last Admin: 02/26/18 17:19 Dose: 100 mg Hydralazine HCl (Apresoline) 25 mg PO Q8 [facility] Last Admin: 02/27/18 06:09 Dose: 25 mg Insulin Aspart (Novolog) 0 unit SC ACHS [facility] PRN Reason: Protocol Last Admin: 02/27/18 07:41 Dose: Not Given Insulin Glargine (Lantus) 24 unit SC HS [facility] Last Admin: 02/26/18 22:01 Dose: 24 units Oxycodone/Acetaminophen (Percocet 5/325 Mg Tab) 1 tab PO Q4H PRN PRN Reason: Pain, moderate (4-7) Stop: 02/28/18 12:47 Last Admin: 02/26/18 16:49 Dose: 1 tab Pantoprazole Sodium (Protonix Ec Tab) 40 mg PO DAILY [facility] Last Admin: 02/26/18 10:38 Dose: 40 mg Rosuvastatin Calcium (Crestor) 5 mg PO HS [facility] Last Admin: 02/26/18 22:01 Dose: 5 mg Fluticasone/Salmeterol (Advair Diskus 500/50) 1 puff INH RQ12 [facility] Last Admin: 02/26/18 20:05 Dose: 1 puff Sevelamer Carbonate (Renvela) 2.4 gm PO TIDCC [facility] Last Admin: 02/27/18 08:55 Dose: Not Given Sodium Bicarbonate (Sodium Bicarbonate Tab) 650 mg PO Q8 [facility] Last Admin: 02/27/18 06:09 Dose: 650 mg Vitamin B Complex/Vit C/Folic Acid (Nephro-Vince) 1 tab PO 0800 [facility] Last Admin: 02/27/18 08:55 Dose: Not Given - Labs Labs: 02/27/18 08:16 02/27/18 08:16 PT 11.4 SECONDS (9.7-12.2) 02/24/18 00:56 INR 1.0 02/24/18 00:56 APTT 33 SECONDS (21-34) 02/24/18 00:56 - Constitutional Appears: Well, Non-toxic, No Acute Distress - Extremities Exam Additional comments: LE focused exam: VASC: DP/PT non-palpable b/l, temperature gradient warm to cool from proximal to distal b/l, Cap refill delayed to digits > 4 sec, no edema noted b/l. NEURO: Gross sensation intact, Protective sensation diminished DERM: Circular ulceration noted to the lateral aspect of 5th metatarsal base measuring approximately 0.5 cm in diameter with no depth. No drainage, No erythema, No fluctanance noted, No streaking. Ulcer is surrounded by hyperkeratotic area. No clinical signs of infection. MSK: Very minimal pain on palpating at site of ulceration. - Neurological Exam Neurological Exam: Alert, Awake, Oriented x3 - Psychiatric Exam Psychiatric exam: Normal Affect, Normal Mood Assessment and Plan - Assessment and Plan (Free Text) Assessment: 52 year old female with stable non-infected right foot ulceration Plan: Patient seen and evaluated with Dr. Mcmanus Labs, charts reviewed; Afebrile Ulcer appears non-infected clinically at this time Ulcer dressed with betadine, DSD Stable from podiatry standpoint Will continue to follow up patient while in house
[2018-02-27] MEDS: Pantoprazole 40 mg EC Tab PO SCH (10:16)
[2018-02-27] MEDS ORDERED: Lidocaine Hydrochloride 10 ML INJ ONE (11:06)
[2018-02-27] MEDS ORDERED: HEPARIN-NS 5,000 UNITS/500 ML 5,000 UNIT/500 ML BAG IV ONE (11:06)
--- NOTE | 2018-02-27 11:18 | CP.PCM.PN ---
Subjective - Date & Time of Evaluation Date of Evaluation: 02/27/18 Time of Evaluation: 10:00 - Subjective Subjective: weak going for permacath IV rx in progress Objective - Vital Signs/Intake and Output Vital Signs (last 24 hours): Temp Pulse Resp BP Pulse Ox 97.8 F 81 20 143/76 96 02/27/18 07:05 02/27/18 07:05 02/27/18 07:05 02/27/18 10:16 02/27/18 07:05 Intake and Output: 02/27/18 02/27/18 06:59 18:59 Intake Total 350 Output Total 390 Balance -40 - Medications Medications: Current Medications Albuterol (Ventolin Hfa 90 Mcg/Actuation (8 G)) 1 puff IH RQID PRN PRN Reason: Wheezing Last Admin: 02/26/18 20:05 Dose: 1 puff Amlodipine Besylate (Norvasc) 10 mg PO DAILY [facility] Last Admin: 02/27/18 10:16 Dose: 10 mg Aspirin (Ecotrin) 81 mg PO DAILY [facility] Last Admin: 02/26/18 10:38 Dose: 81 mg Carvedilol (Coreg) 12.5 mg PO BID [facility] Last Admin: 02/27/18 10:16 Dose: 12.5 mg Cyclobenzaprine HCl (Flexeril) 10 mg PO Q8 PRN PRN Reason: Muscle spasm Last Admin: 02/23/18 17:51 Dose: 10 mg Epoetin Tito (Procrit) 10,000 unit SC MWF [facility] Last Admin: 02/27/18 10:00 Dose: 10,000 unit Ferrous Sulfate (Feosol) 325 mg PO TID [facility] Last Admin: 02/27/18 10:16 Dose: 325 mg Gabapentin (Neurontin) 100 mg PO TID [facility] Last Admin: 02/27/18 10:16 Dose: 100 mg Hydralazine HCl (Apresoline) 25 mg PO Q8 [facility] Last Admin: 02/27/18 06:09 Dose: 25 mg Insulin Aspart (Novolog) 0 unit SC ACHS [facility] PRN Reason: Protocol Last Admin: 02/27/18 07:41 Dose: Not Given Insulin Glargine (Lantus) 24 unit SC HS [facility] Last Admin: 02/26/18 22:01 Dose: 24 units Oxycodone/Acetaminophen (Percocet 5/325 Mg Tab) 1 tab PO Q4H PRN PRN Reason: Pain, moderate (4-7) Stop: 02/28/18 12:47 Last Admin: 02/26/18 16:49 Dose: 1 tab Pantoprazole Sodium (Protonix Ec Tab) 40 mg PO DAILY [facility] Last Admin: 02/27/18 10:16 Dose: 40 mg Rosuvastatin Calcium (Crestor) 5 mg PO HS [facility] Last Admin: 02/26/18 22:01 Dose: 5 mg Fluticasone/Salmeterol (Advair Diskus 500/50) 1 puff INH RQ12 [facility] Last Admin: 02/26/18 20:05 Dose: 1 puff Sevelamer Carbonate (Renvela) 2.4 gm PO TIDCC [facility] Last Admin: 02/27/18 08:55 Dose: Not Given Sodium Bicarbonate (Sodium Bicarbonate Tab) 650 mg PO Q8 [facility] Last Admin: 02/27/18 06:09 Dose: 650 mg Vitamin B Complex/Vit C/Folic Acid (Nephro-Vince) 1 tab PO 0800 [facility] Last Admin: 02/27/18 08:55 Dose: Not Given - Labs Labs: 02/27/18 08:16 02/27/18 08:16 PT 11.4 SECONDS (9.7-12.2) 02/24/18 00:56 INR 1.0 02/24/18 00:56 APTT 33 SECONDS (21-34) 02/24/18 00:56 - Constitutional Appears: Non-toxic, Chronically Ill - Head Exam Head Exam: NORMOCEPHALIC - Eye Exam Eye Exam: PERRL - ENT Exam ENT Exam: Mucous Membranes Dry - Neck Exam Neck Exam: absent: Lymphadenopathy - Respiratory Exam Respiratory Exam: Decreased Breath Sounds - Cardiovascular Exam Cardiovascular Exam: REGULAR RHYTHM, +S1, +S2 - GI/Abdominal Exam GI & Abdominal Exam: Distended, Soft - Rectal Exam Rectal Exam: Deferred - Exam Exam: NORMAL INSPECTION Assessment and Plan (1) BLAYNE (acute kidney injury) Status: Acute (2) Hypertension Status: Chronic (3) CKD (chronic kidney disease) Status: Acute (4) Diabetes mellitus Status: Acute (5) Non-healing ulcer of foot Status: Acute (6) PVD (peripheral vascular disease) Status: Acute (7) Renal insufficiency Status: Acute (8) Diabetes mellitus type 2 in nonobese Status: Chronic - Assessment and Plan (Free Text) Assessment: for permacath and HD as per Dr Man
[2018-02-27] MEDS ORDERED: Midazolam 2 MG/2 ML VIAL ONE (11:48)
[2018-02-27] MEDS ORDERED: Propofol 10 mg/ml Inj (20 ML) ONE (11:48)
[2018-02-27] MEDS ORDERED: ceFAZolin 1 gm in NS 1 GM/100 ML BAG IVPB ONE (11:49)
--- NOTE | 2018-02-27 12:39 | PCM.SURG1 ---
Surgeon's Initial Post Op Note - Surgeon's Notes Surgeon: Dr. Hatfield Shooting Gallery Operator: Dr. Jarquin PGY3 Type of Anesthesia: General Endo Pre-Operative Diagnosis: ESRD Operative Findings: see operative report Post-Operative Diagnosis: see operative report Operation Performed: insertion of right internal jugular permacath Specimen/Specimens Removed: none Estimated Blood Loss: EBL {In ML}: 10 Blood Products Given: N/A Drains Used: No Drains Post-Op Condition: Good Date of Surgery/Procedure: 02/27/18 Time of Surgery/Procedure: 12:39
[2018-02-27] MEDS ORDERED: HYDROmorphone 0.5 mg/0.5 ml ISec IVP PRN (12:40)
--- NOTE | 2018-02-27 13:12 | RAD ---
Date of service: 02/27/2018 HISTORY: s/p permacath insertion COMPARISON: Chest radiograph dated 01/19/2018. FINDINGS: LUNGS: Pulmonary vascular congestion. No active pulmonary disease. PLEURA: No significant pleural effusion identified, no pneumothorax apparent. CARDIOVASCULAR: Prior sternotomy with sternal wires and surgical clips redemonstrated. Cardiomediastinal silhouette stably enlarged OSSEOUS STRUCTURES: No significant abnormalities. VISUALIZED UPPER ABDOMEN: Normal. OTHER FINDINGS: New right internal jugular access tunneled hemodialysis catheter with tips in the distal right brachiocephalic vein/proximal SVC. IMPRESSION: New right internal jugular access tunneled hemodialysis catheter with tips in the distal right brachiocephalic vein/proximal SVC. No pneumothorax. Pulmonary vascular congestion.
--- NOTE | 2018-02-27 13:50 | RAD ---
Date of service: 02/27/2018 PROCEDURE: Intraoperative Fluoroscopy. HISTORY: RENAL FAILURE FINDINGS: Fluoroscopic assistance was provided for right-sided PermCath placement. Please refer to the operative report from HODA Mathis.
--- NOTE | 2018-02-27 18:33 | CP.PCM.PN ---
Subjective - Date & Time of Evaluation Date of Evaluation: 02/27/18 Time of Evaluation: 18:33 - Subjective Subjective: pt is seen and examined during hd, follow up consult is dictated #[id number] Objective - Vital Signs/Intake and Output Vital Signs (last 24 hours): Temp Pulse Resp BP Pulse Ox 97.8 F 87 17 112/70 100 02/27/18 16:25 02/27/18 16:42 02/27/18 16:42 02/27/18 18:25 02/27/18 16:25 Intake and Output: 02/27/18 02/27/18 06:59 18:59 Intake Total 350 697 Output Total 390 500 Balance -40 197 - Medications Medications: Current Medications Albuterol (Ventolin Hfa 90 Mcg/Actuation (8 G)) 1 puff IH RQID PRN PRN Reason: Wheezing Last Admin: 02/26/18 20:05 Dose: 1 puff Amlodipine Besylate (Norvasc) 10 mg PO DAILY [facility] Last Admin: 02/27/18 10:16 Dose: 10 mg Aspirin (Ecotrin) 81 mg PO DAILY [facility] Last Admin: 02/27/18 14:50 Dose: 81 mg Carvedilol (Coreg) 12.5 mg PO BID [facility] Last Admin: 02/27/18 10:16 Dose: 12.5 mg Cyclobenzaprine HCl (Flexeril) 10 mg PO Q8 PRN PRN Reason: Muscle spasm Last Admin: 02/23/18 17:51 Dose: 10 mg Epoetin Tito (Procrit) 10,000 unit SC MWF [facility] Last Admin: 02/27/18 10:00 Dose: 10,000 unit Ferrous Sulfate (Feosol) 325 mg PO TID [facility] Last Admin: 02/27/18 14:50 Dose: 325 mg Gabapentin (Neurontin) 100 mg PO TID [facility] Last Admin: 02/27/18 14:50 Dose: 100 mg Hydralazine HCl (Apresoline) 25 mg PO Q8 [facility] Last Admin: 02/27/18 14:43 Dose: Not Given Insulin Aspart (Novolog) 0 unit SC ACHS [facility] PRN Reason: Protocol Last Admin: 02/27/18 12:22 Dose: Not Given Insulin Glargine (Lantus) 24 unit SC HS [facility] Last Admin: 09/23/18 22:01 Dose: 24 units Oxycodone/Acetaminophen (Percocet 5/325 Mg Tab) 1 tab PO Q4H PRN PRN Reason: Pain, moderate (4-7) Stop: 02/28/18 12:47 Last Admin: 02/26/18 16:49 Dose: 1 tab Pantoprazole Sodium (Protonix Ec Tab) 40 mg PO DAILY [facility] Last Admin: 02/27/18 10:16 Dose: 40 mg Rosuvastatin Calcium (Crestor) 5 mg PO HS [facility] Last Admin: 02/26/18 22:01 Dose: 5 mg Fluticasone/Salmeterol (Advair Diskus 500/50) 1 puff INH RQ12 [facility] Last Admin: 02/26/18 20:05 Dose: 1 puff Sevelamer Carbonate (Renvela) 2.4 gm PO TIDCC [facility] Last Admin: 02/27/18 12:00 Dose: Not Given Sodium Bicarbonate (Sodium Bicarbonate Tab) 650 mg PO Q8 [facility] Last Admin: 02/27/18 14:50 Dose: 650 mg Vitamin B Complex/Vit C/Folic Acid (Nephro-Vince) 1 tab PO 0800 [facility] Last Admin: 02/27/18 08:55 Dose: Not Given - Labs Labs: 02/27/18 08:16 02/27/18 08:16 PT 11.4 SECONDS (9.7-12.2) 02/24/18 00:56 INR 1.0 02/24/18 00:56 APTT 33 SECONDS (21-34) 02/24/18 00:56
--- NOTE | 2018-02-27 19:09 | CARD ---
APPROVED REPORT Date of service: 02/26/2018 EKG Measurement Heart [id number] <Conclusion> Normal sinus rhythm poor R wave progression T wave abnormality: Nonspecific Abnormal ECG
[2018-02-27] MEDS: Fluticasone-Salmeterol 500-50mcg Diskus INH SCH (20:23)
[2018-02-27] MEDS: (Lantus) Insulin Glargine, Recombinant SC SCH (22:02)
--- NOTE | 2018-02-27 23:47 | CP.PCM.CON ---
History of Present Illness - History of Present Illness History of Present Illness: 52 year old female wit a history of DM, HTN, ischemic heart disease, CKD, PVD s/ p bypass, with right foot ulcer, found to have progressive anemia. The patient notes to worsening pain and bleeding from her foot ulcer. She denies blood problems in the past. Her hgb nadired at 7.0 and she is s/p 1 unit PRBC. Past medical history: DM, HTn, ischemic heart disease, CKD, PVD s/p bypass Past surgical history: LE arterial bypass Family history: Denies hematologic and oncologic problems Social history: Denies tobacco, alcohol, and illicit drug use. Allergies: NKA Review of systems: All remaining review of systems including HEENT, cardiovascular, respiratory, gastrointestinal, genitourinary, musculoskeletal, dermatologic, neurologic, and psychiatric are negative unless mentioned in the HPI. Past Patient History - Infectious Disease Hx of Infectious Diseases: None - Past Medical History & Family History Past Medical History?: Yes - Past Social History Smoking Status: Never Smoked - CARDIAC Hx Hypercholesterolemia: Yes Hx Hypertension: Yes - PULMONARY Hx Chronic Obstructive Pulmonary Disease (COPD): Yes - NEUROLOGICAL Hx Neurological Disorder: Yes Hx Syncope: Yes - HEENT Hx HEENT Problems: No - RENAL Hx Chronic Kidney Disease: No - ENDOCRINE/METABOLIC Hx Diabetes Mellitus Type 1: Yes - HEMATOLOGICAL/ONCOLOGICAL Hx Anemia: Yes - INTEGUMENTARY Hx Dermatological Problems: No - MUSCULOSKELETAL/RHEUMATOLOGICAL Hx Arthritis: Yes (KNEE; BACK) - GASTROINTESTINAL Hx Gastrointestinal Disorders: Yes Hx Gastroesophageal Reflux: Yes - GENITOURINARY/GYNECOLOGICAL Hx Genitourinary Disorders: No - PSYCHIATRIC Hx Substance Use: No - SURGICAL HISTORY Hx Coronary Artery Bypass Graft: Yes (09/19) - ANESTHESIA Hx Anesthesia: Yes Hx Anesthesia Reactions: No Hx Malignant Hyperthermia: No Meds Allergies/Adverse Reactions: Allergies Allergy/AdvReac Type Severity Reaction Status Date / Time No Known Allergies Allergy Verified 05/20/17 09:51 - Medications Medications: Current Medications Albuterol (Ventolin Hfa 90 Mcg/Actuation (8 G)) 1 puff IH RQID PRN PRN Reason: Wheezing Last Admin: 02/26/18 20:05 Dose: 1 puff Amlodipine Besylate (Norvasc) 10 mg PO DAILY [facility] Last Admin: 02/27/18 10:16 Dose: 10 mg Aspirin (Ecotrin) 81 mg PO DAILY [facility] Last Admin: 02/27/18 14:50 Dose: 81 mg Carvedilol (Coreg) 12.5 mg PO BID [facility] Last Admin: 02/27/18 20:59 Dose: 12.5 mg Cyclobenzaprine HCl (Flexeril) 10 mg PO Q8 PRN PRN Reason: Muscle spasm Last Admin: 02/23/18 17:51 Dose: 10 mg Epoetin Tito (Procrit) 10,000 unit SC MWF [facility] Last Admin: 02/27/18 10:00 Dose: 10,000 unit Ferrous Sulfate (Feosol) 325 mg PO TID [facility] Last Admin: 02/27/18 20:59 Dose: 325 mg Gabapentin (Neurontin) 100 mg PO TID [facility] Last Admin: 02/27/18 20:59 Dose: 100 mg Hydralazine HCl (Apresoline) 25 mg PO Q8 [facility] Last Admin: 02/27/18 22:02 Dose: Not Given Insulin Aspart (Novolog) 0 unit SC [facility] PRN Reason: Protocol Last Admin: 02/27/18 22:02 Dose: Not Given Insulin Glargine (Lantus) 24 unit SC [facility] Last Admin: 02/27/18 22:02 Dose: Not Given Oxycodone/Acetaminophen (Percocet 5/325 Mg Tab) 1 tab PO Q4H PRN PRN Reason: Pain, moderate (4-7) Stop: 02/28/18 12:47 Last Admin: 02/26/18 16:49 Dose: 1 tab Pantoprazole Sodium (Protonix Ec Tab) 40 mg PO DAILY [facility] Last Admin: 02/27/18 10:16 Dose: 40 mg Rosuvastatin Calcium (Crestor) 5 mg PO [facility] Last Admin: 02/27/18 22:02 Dose: Not Given Fluticasone/Salmeterol (Advair Diskus 500/50) 1 puff INH RQ12 [facility] Last Admin: 02/27/18 20:23 Dose: 1 puff Sevelamer Carbonate (Renvela) 2.4 gm PO TIDCC [facility] Last Admin: 02/27/18 21:03 Dose: Not Given Sodium Bicarbonate (Sodium Bicarbonate Tab) 650 mg PO Q8 [facility] Last Admin: 02/27/18 20:59 Dose: 650 mg Vitamin B Complex/Vit C/Folic Acid (Nephro-Vince) 1 tab PO 0800 [facility] Last Admin: 02/27/18 08:55 Dose: Not Given Physical Exam - Head Exam Head Exam: ATRAUMATIC - Eye Exam Eye Exam: Normal appearance - ENT Exam ENT Exam: Mucous Membranes Dry - Respiratory Exam Respiratory Exam: NORMAL BREATHING PATTERN - Cardiovascular Exam Cardiovascular Exam: +S1, +S2 - GI/Abdominal Exam GI & Abdominal Exam: Normal Bowel Sounds - Extremities Exam Extremities exam: Positive for: pedal edema - Neurological Exam Neurological exam: Oriented x3 - Psychiatric Exam Psychiatric exam: Normal Mood - Skin Skin Exam: Warm Results - Vital Signs Recent Vital Signs: Last Vital Signs Temp 98.4 F 02/27/18 19:30 Pulse 90 02/27/18 19:30 Resp 20 02/27/18 19:30 BP 135/70 02/27/18 20:59 Pulse Ox 96 02/27/18 19:30 - Labs Result Diagrams: 02/27/18 08:16 02/27/18 08:16 Labs: Laboratory Results - last 24 hr 02/27/18 02/27/18 02/27/18 06:11 07:00 08:16 WBC 6.9 RBC 3.11 L Hgb 7.9 L Hct 23.7 L MCV 76.1 L MCH 25.3 L MCHC 33.2 RDW 17.9 H Plt Count 307 MPV 8.8 Neut % (Auto) 67.0 Lymph % (Auto) 18.3 L [place] % (Auto) 9.7 Eos % (Auto) 3.9 Baso % (Auto) 1.1 Neut # (Auto) 4.6 Lymph # (Auto) 1.3 [place] # (Auto) 0.7 Eos # (Auto) 0.3 Baso # (Auto) 0.1 Sodium Potassium Chloride Carbon Dioxide Anion Gap BUN Creatinine Est GFR ( Amer) Est GFR (Non-Af Amer) POC Glucose (mg/dL) 116 H Random Glucose Calcium Total Bilirubin AST ALT Alkaline Phosphatase Total Protein Albumin Globulin Albumin/Globulin Ratio Urine HCG, Qual Negative 02/27/18 02/27/18 02/27/18 08:16 11:03 16:37 WBC RBC Hgb Hct MCV MCH MCHC RDW Plt Count MPV Neut % (Auto) Lymph % (Auto) [place] % (Auto) Eos % (Auto) Baso % (Auto) Neut # (Auto) Lymph # (Auto) [place] # (Auto) Eos # (Auto) Baso # (Auto) Sodium 139 Potassium 4.6 Chloride 108 H Carbon Dioxide 18 L Anion Gap 18 BUN 75 H Creatinine 5.6 H Est GFR ( Amer) 10 Est GFR (Non-Af Amer) 8 POC Glucose (mg/dL) 118 H 131 H Random Glucose 108 H Calcium 8.7 Total Bilirubin 0.3 AST 17 ALT 32 Alkaline Phosphatase 135 H Total Protein 6.1 L Albumin 2.9 L Globulin 3.2 Albumin/Globulin Ratio 0.9 L Urine HCG, Qual Assessment & Plan (1) Anemia Assessment and Plan: likely chronic disease and CKD s/p 1 unit PRBC will check retic count, b12, folate, ferritin to further characterize EPO supplementation per renal outpatient screening colonoscopy transfusion support PRN Thank you for this interesting consult. Status: Acute
--- NOTE | 2018-02-27 23:51 | CP.PCM.PN ---
Subjective - Date & Time of Evaluation Date of Evaluation: 02/27/18 Time of Evaluation: 19:00 - Subjective Subjective: Tolerating HD well. Objective - Vital Signs/Intake and Output Vital Signs (last 24 hours): Temp Pulse Resp BP Pulse Ox 98.4 F 90 20 135/70 96 02/27/18 19:30 02/27/18 19:30 02/27/18 19:30 02/27/18 20:59 02/27/18 19:30 Intake and Output: 02/27/18 02/28/18 18:59 06:59 Intake Total 697 Output Total 500 250 Balance 197 -250 - Medications Medications: Current Medications Albuterol (Ventolin Hfa 90 Mcg/Actuation (8 G)) 1 puff IH RQID PRN PRN Reason: Wheezing Last Admin: 02/26/18 20:05 Dose: 1 puff Amlodipine Besylate (Norvasc) 10 mg PO DAILY [facility] Last Admin: 02/27/18 10:16 Dose: 10 mg Aspirin (Ecotrin) 81 mg PO DAILY [facility] Last Admin: 02/27/18 14:50 Dose: 81 mg Carvedilol (Coreg) 12.5 mg PO BID [facility] Last Admin: 02/27/18 20:59 Dose: 12.5 mg Cyclobenzaprine HCl (Flexeril) 10 mg PO Q8 PRN PRN Reason: Muscle spasm Last Admin: 02/23/18 17:51 Dose: 10 mg Epoetin Tito (Procrit) 10,000 unit SC MWF [facility] [place] Last Admin: 02/27/18 10:00 Dose: 10,000 unit Ferrous Sulfate (Feosol) 325 mg PO TID [facility] [place] Last Admin: 02/27/18 20:59 Dose: 325 mg Gabapentin (Neurontin) 100 mg PO TID [facility] Last Admin: 02/27/18 20:59 Dose: 100 mg Hydralazine HCl (Apresoline) 25 mg PO Q8 [facility] Last Admin: 02/27/18 22:02 Dose: Not Given Insulin Aspart (Novolog) 0 unit SC ACHS [facility] PRN Reason: Protocol Last Admin: 02/27/18 22:02 Dose: Not Given Insulin Glargine (Lantus) 24 unit SC HS [facility] Last Admin: 02/27/18 22:02 Dose: Not Given Oxycodone/Acetaminophen (Percocet 5/325 Mg Tab) 1 tab PO Q4H PRN PRN Reason: Pain, moderate (4-7) Stop: 02/28/18 12:47 Last Admin: 02/26/18 16:49 Dose: 1 tab Pantoprazole Sodium (Protonix Ec Tab) 40 mg PO DAILY [facility] Last Admin: 02/27/18 10:16 Dose: 40 mg Rosuvastatin Calcium (Crestor) 5 mg PO HS [facility] Last Admin: 02/27/18 22:02 Dose: Not Given Fluticasone/Salmeterol (Advair Diskus 500/50) 1 puff INH RQ12 [facility] Last Admin: 02/27/18 20:23 Dose: 1 puff Sevelamer Carbonate (Renvela) 2.4 gm PO TIDCC [facility] [place] Last Admin: 02/27/18 21:03 Dose: Not Given Sodium Bicarbonate (Sodium Bicarbonate Tab) 650 mg PO Q8 [facility] Last Admin: 02/27/18 20:59 Dose: 650 mg Vitamin B Complex/Vit C/Folic Acid (Nephro-Vince) 1 tab PO 0800 [facility] Last Admin: 02/27/18 08:55 Dose: Not Given - Labs Labs: 02/27/18 08:16 02/27/18 08:16 PT 11.4 SECONDS (9.7-12.2) 02/24/18 00:56 INR 1.0 02/24/18 00:56 APTT 33 SECONDS (21-34) 02/24/18 00:56 - Head Exam Head Exam: ATRAUMATIC - Eye Exam Eye Exam: Normal appearance - ENT Exam ENT Exam: Mucous Membranes Dry - Respiratory Exam Respiratory Exam: NORMAL BREATHING PATTERN - Cardiovascular Exam Cardiovascular Exam: +S1, +S2 - GI/Abdominal Exam GI & Abdominal Exam: Normal Bowel Sounds Assessment and Plan (1) Anemia Assessment & Plan: anemia of CKD and chronic disease on EPO per renal transfusion support PRN outpatient screening colonoscopy Status: Acute
--- NOTE | 2018-02-27 23:57 | OP ---
PROCEDURE DATE: 02/27/2018 PREOPERATIVE DIAGNOSIS: Renal failure. POSTOPERATIVE DIAGNOSIS: Renal failure. PROCEDURE CARRIED OUT: Placement of Permacath, right jugular vein with C-arm fluoroscopy, ultrasound-guided puncture, and micropuncture technique. SURGEON: Anatoliy Hatfield Jr., MD MEDICAL CASH POSTER: Dr. Jarquin. ANESTHESIOLOGIST: Mr. Lara. TYPE OF ANESTHESIA: Local with sedation. INDICATIONS: Middle aged woman with renal insufficiency, had fistula created last week, now requires urgent dialysis. OPERATIVE FINDINGS: Catheter was inserted uneventfully via the right jugular vein. DESCRIPTION OF PROCEDURE: The patient was given local anesthesia. Using ultrasound guidance and micropuncture technique, the right jugular vein was punctured. Under fluoroscopic control, a guidewire was advanced centrally. This was exchanged to an 0.035 wire. The sheath dilator was passed over this. The catheter was then tunneled originating on the right chest wall, going to the jugular vein, intervening the superior vena cava. It was flushed with heparinized saline with excellent return and flow. Blood loss during the procedure was less than 20 mL. Operation carried out, Permacath right jugular vein with C-arm fluoroscopy, ultrasound-guided puncture, and micropuncture technique. Ultrasound imaging of the neck showed the vein was approximately 15 mm in diameter with normal compressibility and no intraluminal thrombosis. Anatoliy Hatfield Jr., MD
--- NOTE | 2018-02-28 05:24 | PN ---
DATE: 02/27/2018 FOLLOWUP RENAL CONSULTATION LOCATION: The patient is located in room 660, bed B. REQUESTED BY: Wes Carrillo MD REASON FOR FOLLOWUP: Acute renal failure, chronic kidney disease, and metabolic acidosis. SUBJECTIVE: Mrs. Orozco is a 52-year-old middle-aged [place] female with a history of longstanding hypertension, diabetes, diabetic retinopathy, coronary artery disease, status post CABG, hyperlipidemia, peripheral vascular disease, status post angioplasty who was admitted with renal failure, proteinuria with headache and body aches and for hospital course complicated with deterioration in the renal function and hyperkalemia, metabolic acidosis, and is status post left upper extremity AV fistula with a good bruit. The patient agreed for hemodialysis today and underwent for right internal jugular PermCath placement. The patient was seen and examined during hemodialysis. The patient is slightly restless during dialysis and complains of a headache. No chest pain. No palpitation. No fever. No cough. No abdominal pain. No nausea, vomiting, or diarrhea. PHYSICAL EXAMINATION: VITAL SIGNS: As follows: Blood pressure 112/70, pulse 90, respiration 20, temperature 98.4, saturation 96%. Height 5 feet 5 inches. Weight is 132 pounds. GENERAL: Mrs. Orozco is a 52-year-old middle-aged [place] female, moderately built, moderately nourished, not in distress. HEENT: Pupils are normal and reactive to light and accommodation. Conjunctivae pink. Sclerae anicteric. Tongue is moist. Trachea is midline. LUNGS: Symmetric on both sides. Bilateral breath sounds present. Clear to auscultation. CARDIOVASCULAR SYSTEM: [place] at the fifth intercostal space, midclavicular line. S1, S2 audible. No murmur or gallop. Midsternal scar present from the previous CABG. ABDOMEN: Is soft, tympanitic. No guarding. No rigidity. No hepatosplenomegaly. CENTRAL NERVOUS SYSTEM: The patient is alert, awake, oriented x3. Nonfocal neuro examination. Cranial nerves II-XII grossly intact. Sensory and motor system is within normal limits. EXTREMITIES: No cyanosis, no clubbing, and no edema. The patient has a dressing to the right foot. CURRENT MEDICATIONS: Include as follows: Advair, hydralazine 25 mg p.o. every 8 hours, Coreg 12.5 mg p.o. b.i.d., Crestor 5 mg at bedtime, aspirin 81 mg daily, Feosol 325 mg p.o. t.i.d., Flexeril 10 mg p.o. every 8 hours, Lantus 24 units subcu at bedtime, Nephro-Vince one tablet daily, Neurontin 100 mg p.o. t.i.d., Norvasc 10 mg daily, Percocet one tablet every 4 hours p.r.n., Procrit 10,000 units three times a week, Protonix 40 mg p.o. daily, Renvela 2.4 g p.o. t.i.d., sodium bicarbonate 650 mg p.o. every 8 hours, and albuterol inhaler. LABORATORY DATA: Include as follows as of 02/27/2018: WBC 6.9, hemoglobin 7.9, hematocrit is 23.7, MCV is 76.1 and platelets 307. Sodium 139, potassium 4.6, chloride 108, CO2 of 18, BUN 75, creatinine 5.6, GFR is about 8 mL, glucose 108, and calcium 8.7. Total bili 0.3, AST 17, ALT 32, alkaline phosphatase 135, total protein 6.1. and albumin is 2.9. ASSESSMENT AND PLAN: In summary, Mrs. Orozco is a 52-year-old middle-aged [place] female with a history of hypertension, diabetes, hyperlipidemia, chronic kidney disease stage 4 with proteinuria, massive peripheral vascular disease, status post coronary artery bypass grafting, and hyperlipidemia who was admitted with headache and found to have worsening renal function, anemia, hyperkalemia, metabolic acidosis, and need for hemodialysis. 1. Acute renal failure on chronic kidney disease versus progression of the chronic kidney disease to end-stage renal disease. 2. Anemia. 3. Metabolic acidosis. 4. Status post hyperkalemia. 5. Hypertension. 6. Diabetes. The patient agreed for hemodialysis. The patient is being dialyzed. Ultrafiltration goal is about 300. Continue her current antihypertensive medications, hydralazine, Coreg, and Norvasc. Continue Feosol, Nephro-Vince, and also Epogen. Continue Renvela. Repeat complete blood cell count and basic metabolic panel in the morning. We will follow with you. Thank you for allowing me to participate in your patient's care. Vasiliy Emery MD [facility] # [phone]
[2018-02-28] MEDS: (Novolog) Insulin Aspart, Recombinant 100 u/ml 10 ml vial SC SCH ×4 (07:34→21:49)
[2018-02-28] MEDS: Sevelamer Carb 2.4 gm/Packet PO SCH ×3 (08:19→17:00)
[2018-02-28] MEDS: Multivitamin Vitamin B Complex (Nephro-Vite) Tab PO SCH (08:19)
[2018-02-28] MEDS: Pantoprazole 40 mg EC Tab PO SCH (10:16)
--- NOTE | 2018-02-28 12:36 | CP.PCM.PN ---
Subjective - Date & Time of Evaluation Date of Evaluation: 02/28/18 Time of Evaluation: 09:00 - Subjective Subjective: comfortable less pain Right neck tessio in place Objective - Vital Signs/Intake and Output Vital Signs (last 24 hours): Temp Pulse Resp BP Pulse Ox 98.3 F 85 20 129/67 97 02/28/18 05:35 02/28/18 05:35 02/28/18 04:15 02/28/18 10:17 02/27/18 23:45 Intake and Output: 02/28/18 02/28/18 06:59 18:59 Intake Total 120 Output Total 450 Balance -330 - Medications Medications: Current Medications Albuterol (Ventolin Hfa 90 Mcg/Actuation (8 G)) 1 puff IH RQID PRN PRN Reason: Wheezing Last Admin: 02/26/18 20:05 Dose: 1 puff Amlodipine Besylate (Norvasc) 10 mg PO DAILY [facility] Last Admin: 02/28/18 10:16 Dose: 10 mg Aspirin (Ecotrin) 81 mg PO DAILY [facility] Last Admin: 02/28/18 10:16 Dose: 81 mg Carvedilol (Coreg) 12.5 mg PO BID [facility] Last Admin: 02/28/18 10:17 Dose: 12.5 mg Cyclobenzaprine HCl (Flexeril) 10 mg PO Q8 PRN PRN Reason: Muscle spasm Last Admin: 02/23/18 17:51 Dose: 10 mg Epoetin Tito (Procrit) 10,000 unit SC MWF [facility] Last Admin: 02/27/18 10:00 Dose: 10,000 unit Ferrous Sulfate (Feosol) 325 mg PO TID [facility] Last Admin: 02/28/18 10:16 Dose: 325 mg Gabapentin (Neurontin) 100 mg PO TID [facility] Last Admin: 02/28/18 10:16 Dose: 100 mg Hydralazine HCl (Apresoline) 25 mg PO Q8 [facility] Last Admin: 02/28/18 05:37 Dose: 25 mg Insulin Aspart (Novolog) 0 unit SC [facility]; Protocol Last Admin: 02/28/18 12:25 Dose: Not Given Insulin Glargine (Lantus) 24 unit SC [facility] Last Admin: 02/27/18 22:02 Dose: Not Given Oxycodone/Acetaminophen (Percocet 5/325 Mg Tab) 1 tab PO Q4H PRN PRN Reason: Pain, moderate (4-7) Stop: 02/28/18 12:47 Last Admin: 02/26/18 16:49 Dose: 1 tab Pantoprazole Sodium (Protonix Ec Tab) 40 mg PO DAILY [facility] Last Admin: 02/28/18 10:16 Dose: 40 mg Rosuvastatin Calcium (Crestor) 5 mg PO HS [facility] Last Admin: 02/27/18 22:02 Dose: Not Given Fluticasone/Salmeterol (Advair Diskus 500/50) 1 puff INH RQ12 [facility] Last Admin: 02/27/18 20:23 Dose: 1 puff Sevelamer Carbonate (Renvela) 2.4 gm PO TIDCC [facility] Last Admin: 02/28/18 12:24 Dose: 2.4 gm Sodium Bicarbonate (Sodium Bicarbonate Tab) 650 mg PO Q8 [facility] Last Admin: 02/28/18 05:37 Dose: 650 mg Vitamin B Complex/Vit C/Folic Acid (Nephro-Vince) 1 tab PO 0800 [facility] Last Admin: 02/28/18 08:19 Dose: 1 tab - Labs Labs: 02/27/18 08:16 02/27/18 08:16 PT 11.4 SECONDS (9.7-12.2) 02/24/18 00:56 INR 1.0 02/24/18 00:56 APTT 33 SECONDS (21-34) 02/24/18 00:56 - Constitutional Appears: Non-toxic, Chronically Ill - Head Exam Head Exam: NORMOCEPHALIC - Eye Exam Eye Exam: PERRL - ENT Exam ENT Exam: Mucous Membranes Dry - Neck Exam Neck Exam: absent: Lymphadenopathy - Respiratory Exam Respiratory Exam: Decreased Breath Sounds - Cardiovascular Exam Cardiovascular Exam: REGULAR RHYTHM - GI/Abdominal Exam GI & Abdominal Exam: Distended, Soft - Rectal Exam Rectal Exam: Deferred - Exam Exam: NORMAL INSPECTION Assessment and Plan (1) BLAYNE (acute kidney injury) Status: Acute (2) Hypertension Status: Chronic (3) CKD (chronic kidney disease) Status: Acute (4) Diabetes mellitus Status: Acute (5) Non-healing ulcer of foot Status: Acute (6) PVD (peripheral vascular disease) Status: Acute (7) Renal insufficiency Status: Acute (8) Diabetes mellitus type 2 in nonobese Status: Chronic - Assessment and Plan (Free Text) Assessment: cont rx as per Dr Man
[2018-02-28] MEDS: Oxycodone/Acetaminophen 5/325 mg Tab PO PRN (12:45)
--- NOTE | 2018-02-28 15:58 | CP.PCM.PCO ---
Physician Communication Note - Physician Communication Note Physician Communication Note: No hematoma noted. Surgical insertion site c/d/i.
[2018-02-28] MEDS: Fluticasone-Salmeterol 500-50mcg Diskus INH SCH (19:00)
--- NOTE | 2018-02-28 20:49 | CP.PCM.PN ---
Subjective - Date & Time of Evaluation Date of Evaluation: 02/28/18 Time of Evaluation: 09:55 - Subjective Subjective: pt is seen and examined, follow up consult is dictated #[id number] Objective - Vital Signs/Intake and Output Vital Signs (last 24 hours): Temp Pulse Resp BP Pulse Ox 97.8 F 79 20 116/71 96 02/28/18 15:29 02/28/18 15:29 02/28/18 15:29 02/28/18 17:17 02/28/18 15:29 - Medications Medications: Current Medications Albuterol (Ventolin Hfa 90 Mcg/Actuation (8 G)) 1 puff IH RQID PRN PRN Reason: Wheezing Last Admin: 02/26/18 20:05 Dose: 1 puff Amlodipine Besylate (Norvasc) 10 mg PO DAILY [facility] Last Admin: 02/28/18 10:16 Dose: 10 mg Aspirin (Ecotrin) 81 mg PO DAILY [facility] Last Admin: 02/28/18 10:16 Dose: 81 mg Carvedilol (Coreg) 12.5 mg PO BID [facility] Last Admin: 02/28/18 17:17 Dose: 12.5 mg Cyclobenzaprine HCl (Flexeril) 10 mg PO Q8 PRN PRN Reason: Muscle spasm Last Admin: 02/23/18 17:51 Dose: 10 mg Epoetin Tito (Procrit) 10,000 unit SC MWF [facility] Last Admin: 02/27/18 10:00 Dose: 10,000 unit Ferrous Sulfate (Feosol) 325 mg PO TID [facility] Last Admin: 02/28/18 17:17 Dose: 325 mg Gabapentin (Neurontin) 100 mg PO TID [facility] Last Admin: 02/28/18 17:17 Dose: 100 mg Hydralazine HCl (Apresoline) 25 mg PO Q8 [facility] Last Admin: 02/28/18 13:23 Dose: 25 mg Insulin Aspart (Novolog) 0 unit SC ACHS [facility]; Protocol Last Admin: 02/28/18 17:16 Dose: 2 units Insulin Glargine (Lantus) 24 unit SC HS [facility] Last Admin: 02/27/18 22:02 Dose: Not Given Pantoprazole Sodium (Protonix Ec Tab) 40 mg PO DAILY [facility] Last Admin: 02/28/18 10:16 Dose: 40 mg Rosuvastatin Calcium (Crestor) 5 mg PO HS [facility] Last Admin: 02/27/18 22:02 Dose: Not Given Fluticasone/Salmeterol (Advair Diskus 500/50) 1 puff INH RQ12 [facility] Last Admin: 02/27/18 20:23 Dose: 1 puff Sevelamer Carbonate (Renvela) 2.4 gm PO TIDCC [facility] Last Admin: 02/28/18 12:24 Dose: 2.4 gm Sodium Bicarbonate (Sodium Bicarbonate Tab) 650 mg PO Q8 [facility] Last Admin: 02/28/18 13:28 Dose: 650 mg Vitamin B Complex/Vit C/Folic Acid (Nephro-Vince) 1 tab PO 0800 [facility] Last Admin: 02/28/18 08:19 Dose: 1 tab - Labs Labs: 02/27/18 08:16 02/27/18 08:16 PT 11.4 SECONDS (9.7-12.2) 02/24/18 00:56 INR 1.0 02/24/18 00:56 APTT 33 SECONDS (21-34) 02/24/18 00:56
[2018-02-28] MEDS: (Lantus) Insulin Glargine, Recombinant SC SCH (21:49)
--- NOTE | 2018-03-01 01:52 | PN ---
DATE: 02/28/2018 FOLLOWUP RENAL CONSULTATION LOCATION: The patient is located in room 660, bed B. HISTORY OF PRESENT ILLNESS: Mrs. Orozco is a 52-year-old middle-aged [place] female with a past medical history significant for longstanding hypertension, diabetes, hyperlipidemia, coronary artery disease, status post CABG, peripheral vascular disease, right foot ulcer on the lateral border of the right foot, status post angioplasty of the right leg who was admitted initially with worsening renal function, headache, and body aches, and her hospital course was complicated by worsening renal function, hyperkalemia, metabolic acidosis requiring initiation of renal replacement therapy yesterday. The patient is feeling slightly better. The patient is sitting at the edge of the bed; complains of slight pain in the left upper extremity at the AV fistula site. No nausea, no vomiting, no diarrhea. Urine output has started picking up. PHYSICAL EXAMINATION: VITAL SIGNS: As follows: Blood pressure 129/67, pulse 88, respirations 20, temperature 97.8, saturation 96%. Height 5 feet 5 inches, weight is 132 pounds. GENERAL: Mrs. Orozco is a 52-year-old female, moderately built, moderately nourished, not in acute distress. HEENT: Pupils normal and reactive to light and accommodation. Conjunctivae slightly pale. Sclerae anicteric. Tongue is moist. Trachea is midline. LUNGS: Symmetric on both sides. Bilateral breath sounds present. Clear to auscultation. CVS: [place] at the fifth intercostal space, midclavicular line. S1, S2 audible. No murmur, no gallop. ABDOMEN: Normal in appearance, soft, tympanitic. No guarding. No rigidity. No hepatosplenomegaly. 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 Nonfocal neuro examination. Cranial nerves II through XII grossly intact. Sensory and motor system is grossly within normal limits. EXTREMITIES: No cyanosis, no clubbing, no edema. The patient has a dressing to the right foot. MEDICATIONS: Her current medications include as follows: Advair 1 puff every 12 hours; hydralazine 25 mg p.o. every 8 hours; Coreg 12.5 mg p.o. 2 times daily; Crestor 5 mg at bedtime; Ecotrin 81 mg daily; Feosol 325 mg p.o. 3 times daily; Flexeril 10 mg p.o. every 8 hours p.r.n.; Lantus 24 units subcu at bedtime; Nephro-Vince one tablet p.o. daily; Neurontin 100 mg p.o. 3 times daily; Norvasc 10 mg p.o. daily; NovoLog; Procrit 10,000 units three times a week, Tuesday, Tuesday, and Tuesday; Protonix 40 mg p.o. daily; Renvela 2.4 g p.o. 3 times daily; sodium bicarb 650 g p.o. every 8 hours; and albuterol inhaler. LABORATORY DATA: No new labs are available for today. As of 02/27/2018, hemoglobin and hematocrit 7.9 and 23.7 and BUN/creatinine 75/5.6 predialysis, calcium 8.7. IMPRESSION: In summary, Mrs. Orozco is a 52-year-old female with hypertension, diabetes, coronary artery disease, status post coronary artery bypass grafting, hyperlipidemia, chronic kidney disease, proteinuria, anemia, metabolic acidosis, hyperkalemia, status post left upper extremity arteriovenous fistula, status post right internal jugular Permacath placement yesterday, and status post hemodialysis. 1. Acute renal failure, on chronic kidney disease stage 4. Rule out acute tubular necrosis, rule out secondary to drug-induced mass secondary to metformin and tramadol. The patient is off metformin and tramadol, and urine output is picking up slowly. Plan, continue hemodialysis in a.m. and reevaluate after Tuesday for possible discontinuation of the hemodialysis. 2. Anemia secondary to chronic kidney disease. Continue Epogen three times a week, and continue Nephrocaps. 3. Secondary hyperparathyroidism secondary to renal failure. Continue Renvela. Consider physical therapy evaluation and consider subacute rehab placement. Repeat CBC, CMP, and phosphorus and magnesium level in a.m. Thank you for allowing me to participate in your patient's care. Vasiliy Emery MD
--- NOTE | 2018-03-01 07:11 | CP.PCM.PN ---
Subjective - Date & Time of Evaluation Date of Evaluation: 02/28/18 Time of Evaluation: 09:00 - Subjective Subjective: feeling ok NAD Afebrile tolerating dialysis Objective - Vital Signs/Intake and Output Vital Signs (last 24 hours): Temp Pulse Resp BP Pulse Ox 97.9 F 82 20 135/74 96 02/28/18 23:45 03/01/18 05:35 02/28/18 23:45 03/01/18 05:35 02/28/18 23:45 Intake and Output: 03/01/18 03/01/18 06:59 18:59 Intake Total 100 Balance 100 - Medications Medications: Current Medications Albuterol (Ventolin Hfa 90 Mcg/Actuation (8 G)) 1 puff IH RQID PRN PRN Reason: Wheezing Last Admin: 02/26/18 20:05 Dose: 1 puff Amlodipine Besylate (Norvasc) 10 mg PO DAILY [facility] Last Admin: 02/28/18 10:16 Dose: 10 mg Aspirin (Ecotrin) 81 mg PO DAILY [facility] Last Admin: 02/28/18 10:16 Dose: 81 mg Carvedilol (Coreg) 12.5 mg PO BID [facility] Last Admin: 02/28/18 17:17 Dose: 12.5 mg Cyclobenzaprine HCl (Flexeril) 10 mg PO Q8 PRN PRN Reason: Muscle spasm Last Admin: 02/23/18 17:51 Dose: 10 mg Epoetin Tito (Procrit) 10,000 unit SC MWF [facility] Last Admin: 02/27/18 10:00 Dose: 10,000 unit Ferrous Sulfate (Feosol) 325 mg PO TID [facility] Last Admin: 02/28/18 17:17 Dose: 325 mg Gabapentin (Neurontin) 100 mg PO TID [facility] Last Admin: 02/28/18 17:17 Dose: 100 mg Hydralazine HCl (Apresoline) 25 mg PO Q8 [facility] Last Admin: 03/01/18 05:46 Dose: 25 mg Insulin Aspart (Novolog) 0 unit SC [facility]; Protocol Last Admin: 02/28/18 21:49 Dose: Not Given Insulin Glargine (Lantus) 24 unit SC HS [facility] Last Admin: 02/28/18 21:49 Dose: 24 units Pantoprazole Sodium (Protonix Ec Tab) 40 mg PO DAILY [facility] Last Admin: 02/28/18 10:16 Dose: 40 mg Rosuvastatin Calcium (Crestor) 5 mg PO HS [facility] Last Admin: 02/28/18 21:49 Dose: 5 mg Fluticasone/Salmeterol (Advair Diskus 500/50) 1 puff INH RQ12 [facility] Last Admin: 02/27/18 20:23 Dose: 1 puff Sevelamer Carbonate (Renvela) 2.4 gm PO TIDCC [facility] Last Admin: 02/28/18 17:00 Dose: Not Given Sodium Bicarbonate (Sodium Bicarbonate Tab) 650 mg PO Q8 [facility] Last Admin: 03/01/18 05:46 Dose: 650 mg Vitamin B Complex/Vit C/Folic Acid (Nephro-Vince) 1 tab PO 0800 [facility] Last Admin: 02/28/18 08:19 Dose: 1 tab - Labs Labs: 02/27/18 08:16 02/27/18 08:16 PT 11.4 SECONDS (9.7-12.2) 02/24/18 00:56 INR 1.0 02/24/18 00:56 APTT 33 SECONDS (21-34) 02/24/18 00:56 - Constitutional Appears: Non-toxic - Head Exam Head Exam: NORMAL INSPECTION - Eye Exam Eye Exam: absent: Scleral icterus - Neck Exam Neck Exam: Full ROM - Respiratory Exam Respiratory Exam: Decreased Breath Sounds - Cardiovascular Exam Cardiovascular Exam: REGULAR RHYTHM - GI/Abdominal Exam GI & Abdominal Exam: Soft - Extremities Exam Extremities Exam: absent: Pedal Edema - Neurological Exam Neurological Exam: Altered Assessment and Plan - Assessment and Plan (Free Text) Assessment: ESRD CAD PVD HTN T2dm Plan: COnt meds
[2018-03-01] MEDS: Albuterol HFA 90 mcg/actuation (8 g) IH PRN (07:30)
[2018-03-01] MEDS: Fluticasone-Salmeterol 500-50mcg Diskus INH SCH ×2 (07:31→20:04)
[2018-03-01] MEDS: (Novolog) Insulin Aspart, Recombinant 100 u/ml 10 ml vial SC SCH ×4 (08:29→22:33)
[2018-03-01 08:34] LABS: BASO # 0.1 K/uL (0.0-0.2); BASO % 0.8 % (0.0-2.0); EOS # 0.3 K/uL (0.0-0.7); EOS % 4.3 % (0.0-4.0); LYMPH # 1.1 K/uL (1.0-4.3); LYMPH % 16.5 % (20.0-40.0); MEAN CELL VOLUME 77.8 fL (81.0-99.0); MEAN CORPUSCULAR HEMOGLOBIN 25.3 pg (27.0-31.0); MEAN CORPUSCULAR HGB CONC 32.5 g/dL (33.0-37.0); MEAN PLATELET VOLUME 8.5 fL (7.2-11.7); MONO # 0.6 K/uL (0.0-0.8); MONO % 9.1 % (0.0-10.0); NEUT # 4.8 K/uL (1.8-7.0); NEUT % 69.3 % (50.0-75.0); NRBC % 0.2 % (0.0-2.0); RBC 3.18 Mil/uL (3.80-5.20); RED CELL DISTRIBUTION WIDTH 17.9 % (11.5-14.5); WHITE BLOOD COUNT 6.9 K/uL (4.8-10.8)
[2018-03-01] MEDS: Sevelamer Carb 2.4 gm/Packet PO SCH ×3 (08:37→18:00)
[2018-03-01] MEDS: Multivitamin Vitamin B Complex (Nephro-Vite) Tab PO SCH (08:37)
[2018-03-01 08:52] LABS: ALB/GLOB RATIO 0.9 (1.0-2.1); ALBUMIN 2.8 g/dL (3.5-5.0); CALCIUM 8.1 mg/dl (8.6-10.4)
--- NOTE | 2018-03-01 10:03 | CP.PCM.PN ---
Subjective - Date & Time of Evaluation Date of Evaluation: 03/01/18 Time of Evaluation: 10:03 - Subjective Subjective: pt is seen and exam,ined, follow up consult is dictated #[id number] seen in hd, uf 200 ml , stable hd tx Objective - Vital Signs/Intake and Output Vital Signs (last 24 hours): Temp Pulse Resp BP Pulse Ox 98.1 F 85 20 134/71 93 L 03/01/18 09:00 03/01/18 09:00 03/01/18 09:00 03/01/18 09:15 03/01/18 09:00 Intake and Output: 03/01/18 03/01/18 06:59 18:59 Intake Total 100 Balance 100 - Medications Medications: Current Medications Albuterol (Ventolin Hfa 90 Mcg/Actuation (8 G)) 1 puff IH RQID PRN PRN Reason: Wheezing Last Admin: 03/01/18 07:30 Dose: 1 puff Amlodipine Besylate (Norvasc) 10 mg PO DAILY [facility] Last Admin: 02/28/18 10:16 Dose: 10 mg Aspirin (Ecotrin) 81 mg PO DAILY [facility] Last Admin: 02/28/18 10:16 Dose: 81 mg Carvedilol (Coreg) 12.5 mg PO BID [facility] Last Admin: 02/28/18 17:17 Dose: 12.5 mg Cyclobenzaprine HCl (Flexeril) 10 mg PO Q8 PRN PRN Reason: Muscle spasm Last Admin: 02/23/18 17:51 Dose: 10 mg Epoetin Tito (Procrit) 10,000 unit SC MWF [facility] Last Admin: 02/27/18 10:00 Dose: 10,000 unit Ferrous Sulfate (Feosol) 325 mg PO TID [facility] Last Admin: 02/28/18 17:17 Dose: 325 mg Gabapentin (Neurontin) 100 mg PO TID [facility] Last Admin: 02/28/18 17:17 Dose: 100 mg Hydralazine HCl (Apresoline) 25 mg PO Q8 [facility] Last Admin: 03/01/18 05:46 Dose: 25 mg Insulin Aspart (Novolog) 0 unit SC ACHS [facility]; Protocol Last Admin: 03/01/18 08:29 Dose: 8 units Insulin Glargine (Lantus) 24 unit SC HS [facility] Last Admin: 02/28/18 21:49 Dose: 24 units Pantoprazole Sodium (Protonix Ec Tab) 40 mg PO DAILY [facility] Last Admin: 02/28/18 10:16 Dose: 40 mg Rosuvastatin Calcium (Crestor) 5 mg PO HS [facility] Last Admin: 02/28/18 21:49 Dose: 5 mg Fluticasone/Salmeterol (Advair Diskus 500/50) 1 puff INH RQ12 [facility] Last Admin: 03/01/18 07:31 Dose: Not Given Sevelamer Carbonate (Renvela) 2.4 gm PO TIDCC [facility] Last Admin: 03/01/18 08:37 Dose: 2.4 gm Sodium Bicarbonate (Sodium Bicarbonate Tab) 650 mg PO Q8 [facility] Last Admin: 03/01/18 05:46 Dose: 650 mg Vitamin B Complex/Vit C/Folic Acid (Nephro-Vince) 1 tab PO 0800 [facility] Last Admin: 03/01/18 08:37 Dose: 1 tab - Labs Labs: 03/01/18 08:18 03/01/18 08:18 PT 11.4 SECONDS (9.7-12.2) 02/24/18 00:56 INR 1.0 02/24/18 00:56 APTT 33 SECONDS (21-34) 02/24/18 00:56
[2018-03-01] MEDS: Pantoprazole 40 mg EC Tab PO SCH (10:13)
[2018-03-01] MEDS: EPOETIN ALFA 10,000 UNIT/ML ML SC SCH (10:28)
[2018-03-01] MEDS ORDERED: Epoetin Alfa 10,000 unit/ml Dialysis SC SCH (10:30)
[2018-03-01] MEDS: Epoetin Alfa 10,000 unit/ml Dialysis IV SCH (10:59)
--- NOTE | 2018-03-01 12:44 | CP.PCM.PN ---
Subjective - Date & Time of Evaluation Date of Evaluation: 03/01/18 Time of Evaluation: 07:00 - Subjective Subjective: went for HD improving Objective - Vital Signs/Intake and Output Vital Signs (last 24 hours): Temp Pulse Resp BP Pulse Ox 97.8 F 89 18 147/86 94 L 03/01/18 12:00 03/01/18 12:00 03/01/18 12:00 03/01/18 12:00 03/01/18 12:00 Intake and Output: 03/01/18 03/01/18 06:59 18:59 Intake Total 100 Balance 100 - Medications Medications: Current Medications Albuterol (Ventolin Hfa 90 Mcg/Actuation (8 G)) 1 puff IH RQID PRN PRN Reason: Wheezing Last Admin: 03/01/18 07:30 Dose: 1 puff Amlodipine Besylate (Norvasc) 10 mg PO DAILY [facility] Last Admin: 03/01/18 10:13 Dose: Not Given Aspirin (Ecotrin) 81 mg PO DAILY [facility] Last Admin: 03/01/18 10:12 Dose: Not Given Carvedilol (Coreg) 12.5 mg PO BID [facility] Last Admin: 03/01/18 10:12 Dose: Not Given Cyclobenzaprine HCl (Flexeril) 10 mg PO Q8 PRN PRN Reason: Muscle spasm Last Admin: 02/23/18 17:51 Dose: 10 mg Epoetin Tito (Procrit) 10,000 unit IV MWF [facility] Last Admin: 03/01/18 10:59 Dose: 10,000 unit Ferrous Sulfate (Feosol) 325 mg PO TID [facility] Last Admin: 03/01/18 10:13 Dose: Not Given Gabapentin (Neurontin) 100 mg PO TID [facility] Last Admin: 03/01/18 10:13 Dose: Not Given Hydralazine HCl (Apresoline) 25 mg PO Q8 [facility] Last Admin: 03/01/18 05:46 Dose: 25 mg Insulin Aspart (Novolog) 0 unit SC [facility]; Protocol Last Admin: 03/01/18 12:20 Dose: Not Given Insulin Glargine (Lantus) 24 unit SC HS [facility] Last Admin: 02/28/18 21:49 Dose: 24 units Pantoprazole Sodium (Protonix Ec Tab) 40 mg PO DAILY [facility] Last Admin: 03/01/18 10:13 Dose: Not Given Rosuvastatin Calcium (Crestor) 5 mg PO HS [facility] Last Admin: 02/28/18 21:49 Dose: 5 mg Fluticasone/Salmeterol (Advair Diskus 500/50) 1 puff INH RQ12 [facility] Last Admin: 03/01/18 07:31 Dose: Not Given Sevelamer Carbonate (Renvela) 2.4 gm PO TIDCC [facility] Last Admin: 03/01/18 12:24 Dose: 2.4 gm Sodium Bicarbonate (Sodium Bicarbonate Tab) 650 mg PO Q8 [facility] Last Admin: 03/01/18 05:46 Dose: 650 mg Vitamin B Complex/Vit C/Folic Acid (Nephro-Vince) 1 tab PO 0800 [facility] Last Admin: 03/01/18 08:37 Dose: 1 tab - Labs Labs: 03/01/18 08:18 03/01/18 08:18 PT 11.4 SECONDS (9.7-12.2) 02/24/18 00:56 INR 1.0 02/24/18 00:56 APTT 33 SECONDS (21-34) 02/24/18 00:56 - Constitutional Appears: Non-toxic, Chronically Ill - Head Exam Head Exam: NORMOCEPHALIC - Eye Exam Eye Exam: PERRL - ENT Exam ENT Exam: Mucous Membranes Dry - Neck Exam Neck Exam: absent: Lymphadenopathy - Respiratory Exam Respiratory Exam: Decreased Breath Sounds - Cardiovascular Exam Cardiovascular Exam: REGULAR RHYTHM - GI/Abdominal Exam GI & Abdominal Exam: Distended, Soft - Rectal Exam Rectal Exam: Deferred - Exam Exam: NORMAL INSPECTION Assessment and Plan (1) BLAYNE (acute kidney injury) Status: Acute (2) Hypertension Status: Chronic (3) CKD (chronic kidney disease) Status: Acute (4) Diabetes mellitus Status: Acute (5) Non-healing ulcer of foot Status: Acute (6) PVD (peripheral vascular disease) Status: Acute (7) Renal insufficiency Status: Acute (8) Diabetes mellitus type 2 in nonobese Status: Chronic
[2018-03-01] MEDS ORDERED: POLYETHYLENE GLYCOL 3350 17 GM/Dose PACKET PO ONE (16:15)
--- NOTE | 2018-03-01 20:50 | CP.PCM.PN ---
Subjective - Date & Time of Evaluation Date of Evaluation: 02/28/18 Time of Evaluation: 14:00 - Subjective Subjective: Feels tired. Objective - Vital Signs/Intake and Output Vital Signs (last 24 hours): Temp Pulse Resp BP Pulse Ox 98.9 F 97 H 20 155/70 H 95 03/01/18 16:00 03/01/18 16:00 03/01/18 16:00 03/01/18 16:00 03/01/18 16:00 Intake and Output: 03/01/18 03/02/18 18:59 06:59 Intake Total 340 Balance 340 - Medications Medications: Current Medications Albuterol (Ventolin Hfa 90 Mcg/Actuation (8 G)) 1 puff IH RQID PRN PRN Reason: Wheezing Last Admin: 03/01/18 07:30 Dose: 1 puff Amlodipine Besylate (Norvasc) 10 mg PO DAILY [facility] Last Admin: 03/01/18 10:13 Dose: Not Given Aspirin (Ecotrin) 81 mg PO DAILY [facility] Last Admin: 03/01/18 10:12 Dose: Not Given Carvedilol (Coreg) 12.5 mg PO BID [facility] Last Admin: 03/01/18 10:12 Dose: Not Given Cyclobenzaprine HCl (Flexeril) 10 mg PO Q8 PRN PRN Reason: Muscle spasm Last Admin: 02/23/18 17:51 Dose: 10 mg Epoetin Tito (Procrit) 10,000 unit IV MWF [facility] Last Admin: 03/01/18 10:59 Dose: 10,000 unit Ferrous Sulfate (Feosol) 325 mg PO TID [facility] Last Admin: 03/01/18 17:59 Dose: 325 mg Gabapentin (Neurontin) 100 mg PO TID [facility] Last Admin: 03/01/18 17:59 Dose: 100 mg Hydralazine HCl (Apresoline) 25 mg PO Q8 [facility] Last Admin: 03/01/18 14:20 Dose: 25 mg Insulin Aspart (Novolog) 0 unit SC [facility]; Protocol Last Admin: 03/01/18 18:01 Dose: 4 units Insulin Glargine (Lantus) 24 unit SC HS [facility] Last Admin: 02/28/18 21:49 Dose: 24 units Pantoprazole Sodium (Protonix Ec Tab) 40 mg PO DAILY [facility] Last Admin: 03/01/18 10:13 Dose: Not Given Rosuvastatin Calcium (Crestor) 5 mg PO HS [facility] Last Admin: 02/28/18 21:49 Dose: 5 mg Fluticasone/Salmeterol (Advair Diskus 500/50) 1 puff INH RQ12 [facility] Last Admin: 03/01/18 20:04 Dose: Not Given Sevelamer Carbonate (Renvela) 2.4 gm PO TIDCC [facility] Last Admin: 03/01/18 18:00 Dose: 2.4 gm Sodium Bicarbonate (Sodium Bicarbonate Tab) 650 mg PO Q8 [facility] Last Admin: 03/01/18 14:21 Dose: 650 mg Vitamin B Complex/Vit C/Folic Acid (Nephro-Vince) 1 tab PO 0800 [facility] Last Admin: 03/01/18 08:37 Dose: 1 tab - Labs Labs: 03/01/18 08:18 03/01/18 08:18 PT 11.4 SECONDS (9.7-12.2) 02/24/18 00:56 INR 1.0 02/24/18 00:56 APTT 33 SECONDS (21-34) 02/24/18 00:56 - Head Exam Head Exam: ATRAUMATIC - Eye Exam Eye Exam: Normal appearance - ENT Exam ENT Exam: Mucous Membranes Dry - Respiratory Exam Respiratory Exam: NORMAL BREATHING PATTERN - Cardiovascular Exam Cardiovascular Exam: +S1, +S2 - GI/Abdominal Exam GI & Abdominal Exam: Normal Bowel Sounds Assessment and Plan (1) Anemia Assessment & Plan: anemia of CKD and chronic disease on EPO per renal transfusion support PRN outpatient screening colonoscopy Status: Acute
--- NOTE | 2018-03-01 20:51 | CP.PCM.PN ---
Subjective - Date & Time of Evaluation Date of Evaluation: 03/01/18 Time of Evaluation: 17:30 - Subjective Subjective: Feeling better, had HD today. Objective - Vital Signs/Intake and Output Vital Signs (last 24 hours): Temp Pulse Resp BP Pulse Ox 98.9 F 97 H 20 155/70 H 95 03/01/18 16:00 03/01/18 16:00 03/01/18 16:00 03/01/18 16:00 03/01/18 16:00 Intake and Output: 03/01/18 03/02/18 18:59 06:59 Intake Total 340 Balance 340 - Medications Medications: Current Medications Albuterol (Ventolin Hfa 90 Mcg/Actuation (8 G)) 1 puff IH RQID PRN PRN Reason: Wheezing Last Admin: 03/01/18 07:30 Dose: 1 puff Amlodipine Besylate (Norvasc) 10 mg PO DAILY [facility] Last Admin: 03/01/18 10:13 Dose: Not Given Aspirin (Ecotrin) 81 mg PO DAILY [facility] Last Admin: 03/01/18 10:12 Dose: Not Given Carvedilol (Coreg) 12.5 mg PO BID [facility] Last Admin: 03/01/18 10:12 Dose: Not Given Cyclobenzaprine HCl (Flexeril) 10 mg PO Q8 PRN PRN Reason: Muscle spasm Last Admin: 02/23/18 17:51 Dose: 10 mg Epoetin Tito (Procrit) 10,000 unit IV MWF [facility] Last Admin: 03/01/18 10:59 Dose: 10,000 unit Ferrous Sulfate (Feosol) 325 mg PO TID [facility] Last Admin: 03/01/18 17:59 Dose: 325 mg Gabapentin (Neurontin) 100 mg PO TID [facility] Last Admin: 03/01/18 17:59 Dose: 100 mg Hydralazine HCl (Apresoline) 25 mg PO Q8 [facility] Last Admin: 03/01/18 14:20 Dose: 25 mg Insulin Aspart (Novolog) 0 unit SC [facility]; Protocol Last Admin: 03/01/18 18:01 Dose: 4 units Insulin Glargine (Lantus) 24 unit SC HS [facility] Last Admin: 02/28/18 21:49 Dose: 24 units Pantoprazole Sodium (Protonix Ec Tab) 40 mg PO DAILY [facility] Last Admin: 03/01/18 10:13 Dose: Not Given Rosuvastatin Calcium (Crestor) 5 mg PO HS [facility] Last Admin: 02/28/18 21:49 Dose: 5 mg Fluticasone/Salmeterol (Advair Diskus 500/50) 1 puff INH RQ12 [facility] Last Admin: 03/01/18 20:04 Dose: Not Given Sevelamer Carbonate (Renvela) 2.4 gm PO TIDCC [facility] Last Admin: 03/01/18 18:00 Dose: 2.4 gm Sodium Bicarbonate (Sodium Bicarbonate Tab) 650 mg PO Q8 [facility] Last Admin: 03/01/18 14:21 Dose: 650 mg Vitamin B Complex/Vit C/Folic Acid (Nephro-Vince) 1 tab PO 0800 [facility] Last Admin: 03/01/18 08:37 Dose: 1 tab - Labs Labs: 03/01/18 08:18 03/01/18 08:18 PT 11.4 SECONDS (9.7-12.2) 02/24/18 00:56 INR 1.0 02/24/18 00:56 APTT 33 SECONDS (21-34) 02/24/18 00:56 - Head Exam Head Exam: ATRAUMATIC - Eye Exam Eye Exam: Normal appearance - ENT Exam ENT Exam: Mucous Membranes Dry - Respiratory Exam Respiratory Exam: NORMAL BREATHING PATTERN - Cardiovascular Exam Cardiovascular Exam: +S1, +S2 - GI/Abdominal Exam GI & Abdominal Exam: Normal Bowel Sounds Assessment and Plan (1) Anemia Assessment & Plan: anemia of CKD and chronic disease on EPO per renal transfusion support PRN outpatient screening colonoscopy Status: Acute
[2018-03-01] MEDS: (Lantus) Insulin Glargine, Recombinant SC SCH (22:25)
--- NOTE | 2018-03-02 02:46 | PN ---
DATE: 03/01/2018 FOLLOWUP RENAL CONSULTATION LOCATION: The patient is located in room 660, bed B. REQUESTED BY: Wes Carrillo MD SUBJECTIVE: Mrs. Orozco is a 52-year-old [place] female with a history of hypertension, diabetes, hyperlipidemia, coronary artery disease, status post CABG, chronic kidney disease, peripheral vascular disease, status post angioplasty of the right lower extremity, and massive proteinuria with the baseline creatinine about 2 to 2.5, was admitted with headache, fever, body aches, and worsening renal function and developed some hyperkalemia and metabolic acidosis requiring right internal jugular Permacath placement on Tuesday and started on hemodialysis. The patient is seen and examined during dialysis. No complaints other than slight pain in the left upper extremity. Not in acute distress. No chest pain. No palpitation. No fever or cough. No abdominal pain. No nausea or vomiting. No diarrhea. PHYSICAL EXAMINATION: VITAL SIGNS: As follows: Blood pressure 153/74, pulse 90, respirations 18, temperature 97.4, saturation 98%. Ultrafiltration is about 0.2 L. GENERAL: Mrs. Orozco is a 52-year-old middle aged [place] female, moderately built, moderately nourished, not in distress. HEENT: Pupils normal and reactive to light and accommodation. Conjunctivae are pink. Sclerae anicteric. Tongue is moist. Trachea is midline. LUNGS: Symmetric on both sides. Bilateral breath sounds present. Clear to auscultation. CVS: [place] at the fifth intercostal space, midclavicular line. S1, S2 audible. No murmur, no gallop. ABDOMEN: Normal in appearance, soft, tympanitic. No guarding. No rigidity. No hepatosplenomegaly. 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 Nonfocal neuro examination. Cranial nerves II through XII grossly intact. Sensory and motor system is within normal limits. EXTREMITIES: No cyanosis, no clubbing, no edema. The patient has a dressing to the right foot. LABORATORY DATA: Include as follows: As of 03/01/2018, WBC 6.9, hemoglobin 8, hematocrit 24.7, MCV is 77.8, platelets 321. Sodium 128, potassium 4.1, chloride 101, CO2 of 26, BUN 48, creatinine 3.7, GFR is 13, glucose 262, calcium 8.1, phosphorus 5.4, magnesium 2.3. Total bili 0.3, AST 16, ALT 24, alkaline phosphatase 157, total protein 5.9. and albumin is 2.8. ASSESSMENT AND PLAN: In summary, Mrs. Orozco is a 52-year-old [place] female with hypertension, diabetes, hyperlipidemia, coronary artery disease, diabetic retinopathy with poor vision, and hyperlipidemia, peripheral vascular disease, chronic kidney disease with GFR between 15 mL and 20 mL with the baseline creatine about 2.6 on admission which got worse during the hospital course to 5.6 and requiring initiation of hemodialysis. 1. Acute renal failure on chronic kidney disease, most likely secondary to drug induced, tramadol and also metformin, non-steroids. The patient is off non-steroids and metformin. Urine output is slowly picking up. Continue to monitor serum creatinine and continue to monitor urine output. 2. Anemia secondary to chronic kidney disease, cannot rule out iron-deficiency anemia in the setting of low mean corpuscular volume. Continue p.o. iron and also continue Epogen during dialysis. 3. Hypertension. 4. Diabetes. 5. Debility and weakness. Follow up with the Physical Therapy and consider subacute rehab placement. We will continue to monitor BMP prehemodialysis. Next hemodialysis, most likely on Tuesday. Vasiliy Emery MD
[2018-03-02] MEDS: (Novolog) Insulin Aspart, Recombinant 100 u/ml 10 ml vial SC SCH ×4 (07:53→21:37)
[2018-03-02] MEDS: Multivitamin Vitamin B Complex (Nephro-Vite) Tab PO SCH (08:12)
[2018-03-02] MEDS: Fluticasone-Salmeterol 500-50mcg Diskus INH SCH ×2 (08:54→19:34)
[2018-03-02] MEDS: Pantoprazole 40 mg EC Tab PO SCH (09:52)
[2018-03-02] MEDS: Sevelamer Carb 2.4 gm/Packet PO SCH ×3 (09:53→17:27)
--- NOTE | 2018-03-02 11:17 | CP.PCM.PN ---
Subjective - Date & Time of Evaluation Date of Evaluation: 03/02/18 Time of Evaluation: 11:17 - Subjective Subjective: pt is seen and examined, follow up consult is dictated #[id number] Objective - Vital Signs/Intake and Output Vital Signs (last 24 hours): Temp Pulse Resp BP Pulse Ox 97.5 F L 84 18 131/67 99 03/02/18 07:12 03/02/18 10:25 03/02/18 07:12 03/02/18 10:25 03/02/18 07:12 Intake and Output: 03/02/18 03/02/18 06:59 18:59 Intake Total 580 Balance 580 - Medications Medications: Current Medications Albuterol (Ventolin Hfa 90 Mcg/Actuation (8 G)) 1 puff IH RQID PRN PRN Reason: Wheezing Last Admin: 03/01/18 07:30 Dose: 1 puff Amlodipine Besylate (Norvasc) 10 mg PO DAILY [facility] Last Admin: 03/02/18 09:52 Dose: 10 mg Aspirin (Ecotrin) 81 mg PO DAILY [facility] Last Admin: 03/02/18 09:50 Dose: 81 mg Carvedilol (Coreg) 12.5 mg PO BID [facility] Last Admin: 03/02/18 09:50 Dose: 12.5 mg Cyclobenzaprine HCl (Flexeril) 10 mg PO Q8 PRN PRN Reason: Muscle spasm Last Admin: 02/23/18 17:51 Dose: 10 mg Epoetin Tito (Procrit) 10,000 unit IV MWF [facility] Last Admin: 03/01/18 10:59 Dose: 10,000 unit Ferrous Sulfate (Feosol) 325 mg PO TID [facility] Last Admin: 03/02/18 09:50 Dose: 325 mg Gabapentin (Neurontin) 100 mg PO TID [facility] Last Admin: 03/02/18 09:52 Dose: 100 mg Hydralazine HCl (Apresoline) 25 mg PO Q8 [facility] Last Admin: 03/02/18 05:40 Dose: 25 mg Insulin Aspart (Novolog) 0 unit SC [facility]; Protocol Last Admin: 03/02/18 07:53 Dose: Not Given Insulin Glargine (Lantus) 24 unit SC HS [facility] Last Admin: 03/01/18 22:25 Dose: 24 units Pantoprazole Sodium (Protonix Ec Tab) 40 mg PO DAILY [facility] Last Admin: 03/02/18 09:52 Dose: 40 mg Rosuvastatin Calcium (Crestor) 5 mg PO HS [facility] Last Admin: 03/01/18 22:24 Dose: 5 mg Fluticasone/Salmeterol (Advair Diskus 500/50) 1 puff INH RQ12 [facility] Last Admin: 03/02/18 08:54 Dose: Not Given Sevelamer Carbonate (Renvela) 2.4 gm PO TIDCC [facility] Last Admin: 03/02/18 09:53 Dose: 2.4 gm Sodium Bicarbonate (Sodium Bicarbonate Tab) 650 mg PO Q8 [facility] Last Admin: 03/02/18 05:40 Dose: 650 mg Vitamin B Complex/Vit C/Folic Acid (Nephro-Vince) 1 tab PO 0800 [facility] Last Admin: 03/02/18 08:12 Dose: 1 tab - Labs Labs: 03/01/18 08:18 03/01/18 08:18 PT 11.4 SECONDS (9.7-12.2) 02/24/18 00:56 INR 1.0 02/24/18 00:56 APTT 33 SECONDS (21-34) 02/24/18 00:56
[2018-03-02] MEDS: (Lantus) Insulin Glargine, Recombinant SC SCH (21:34)
--- NOTE | 2018-03-02 22:30 | CP.PCM.PN ---
Subjective - Date & Time of Evaluation Date of Evaluation: 02/21/18 Time of Evaluation: 08:15 - Subjective Subjective: no chest pain worsening renal function Creat 3.3 Objective - Vital Signs/Intake and Output Vital Signs (last 24 hours): Temp Pulse Resp BP Pulse Ox 98.0 F 79 18 146/74 94 L 03/02/18 15:20 03/02/18 16:00 03/02/18 15:20 03/02/18 17:29 03/02/18 15:20 Intake and Output: 03/02/18 03/03/18 18:59 06:59 Intake Total 400 Balance 400 - Medications Medications: Current Medications Albuterol (Ventolin Hfa 90 Mcg/Actuation (8 G)) 1 puff IH RQID PRN PRN Reason: Wheezing Last Admin: 03/01/18 07:30 Dose: 1 puff Amlodipine Besylate (Norvasc) 10 mg PO DAILY [facility] Last Admin: 03/02/18 09:52 Dose: 10 mg Aspirin (Ecotrin) 81 mg PO DAILY [facility] Last Admin: 03/02/18 09:50 Dose: 81 mg Carvedilol (Coreg) 12.5 mg PO BID [facility] Last Admin: 03/02/18 17:29 Dose: 12.5 mg Cyclobenzaprine HCl (Flexeril) 10 mg PO Q8 PRN PRN Reason: Muscle spasm Last Admin: 03/02/18 12:48 Dose: 10 mg Epoetin Tito (Procrit) 10,000 unit IV MWF [facility] Last Admin: 03/01/18 10:59 Dose: 10,000 unit Ferrous Sulfate (Feosol) 325 mg PO TID [facility] Last Admin: 03/02/18 17:27 Dose: 325 mg Gabapentin (Neurontin) 100 mg PO TID [facility] Last Admin: 03/02/18 17:27 Dose: 100 mg Hydralazine HCl (Apresoline) 25 mg PO Q8 [facility] Last Admin: 03/02/18 21:34 Dose: 25 mg Insulin Aspart (Novolog) 0 unit SC [facility]; Protocol Last Admin: 03/02/18 21:37 Dose: Not Given Insulin Glargine (Lantus) 24 unit SC HS [facility] Last Admin: 03/02/18 21:34 Dose: 24 units Pantoprazole Sodium (Protonix Ec Tab) 40 mg PO DAILY [facility] Last Admin: 03/02/18 09:52 Dose: 40 mg Rosuvastatin Calcium (Crestor) 5 mg PO HS [facility] Last Admin: 03/02/18 21:34 Dose: 5 mg Fluticasone/Salmeterol (Advair Diskus 500/50) 1 puff INH RQ12 [facility] Last Admin: 03/02/18 19:34 Dose: Not Given Sevelamer Carbonate (Renvela) 2.4 gm PO TIDCC [facility] Last Admin: 03/02/18 17:27 Dose: 2.4 gm Sodium Bicarbonate (Sodium Bicarbonate Tab) 650 mg PO Q8 [facility] Last Admin: 03/02/18 21:34 Dose: 650 mg Vitamin B Complex/Vit C/Folic Acid (Nephro-Vince) 1 tab PO 0800 [facility] Last Admin: 03/02/18 08:12 Dose: 1 tab - Labs Labs: 03/01/18 08:18 03/01/18 08:18 PT 11.4 SECONDS (9.7-12.2) 02/24/18 00:56 INR 1.0 02/24/18 00:56 APTT 33 SECONDS (21-34) 02/24/18 00:56 - Constitutional Appears: Non-toxic - Head Exam Head Exam: NORMAL INSPECTION - Eye Exam Eye Exam: absent: Scleral icterus - Neck Exam Neck Exam: Full ROM - Respiratory Exam Respiratory Exam: NORMAL BREATHING PATTERN - Cardiovascular Exam Cardiovascular Exam: REGULAR RHYTHM - GI/Abdominal Exam GI & Abdominal Exam: Soft - Extremities Exam Extremities Exam: absent: Pedal Edema, Tenderness - Neurological Exam Neurological Exam: Altered Assessment and Plan - Assessment and Plan (Free Text) Assessment: CAD - stable cardiac yousif CKD HTN PVD T2dm Plan: Cont meds
--- NOTE | 2018-03-02 22:37 | CP.PCM.PN ---
Subjective - Date & Time of Evaluation Date of Evaluation: 02/22/18 Time of Evaluation: 09:00 - Subjective Subjective: non-healing ulcer of foot Vasc w/u in progress no chest pain Objective - Vital Signs/Intake and Output Vital Signs (last 24 hours): Temp Pulse Resp BP Pulse Ox 98.0 F 79 18 146/74 94 L 03/02/18 15:20 03/02/18 16:00 03/02/18 15:20 03/02/18 17:29 03/02/18 15:20 Intake and Output: 03/02/18 03/03/18 18:59 06:59 Intake Total 400 Balance 400 - Medications Medications: Current Medications Albuterol (Ventolin Hfa 90 Mcg/Actuation (8 G)) 1 puff IH RQID PRN PRN Reason: Wheezing Last Admin: 03/01/18 07:30 Dose: 1 puff Amlodipine Besylate (Norvasc) 10 mg PO DAILY [facility] Last Admin: 03/02/18 09:52 Dose: 10 mg Aspirin (Ecotrin) 81 mg PO DAILY [facility] Last Admin: 03/02/18 09:50 Dose: 81 mg Carvedilol (Coreg) 12.5 mg PO BID [facility] Last Admin: 03/02/18 17:29 Dose: 12.5 mg Cyclobenzaprine HCl (Flexeril) 10 mg PO Q8 PRN PRN Reason: Muscle spasm Last Admin: 03/02/18 12:48 Dose: 10 mg Epoetin Tito (Procrit) 10,000 unit IV MWF [facility] Last Admin: 03/01/18 10:59 Dose: 10,000 unit Ferrous Sulfate (Feosol) 325 mg PO TID [facility] Last Admin: 03/02/18 17:27 Dose: 325 mg Gabapentin (Neurontin) 100 mg PO TID [facility] Last Admin: 03/02/18 17:27 Dose: 100 mg Hydralazine HCl (Apresoline) 25 mg PO Q8 [facility] Last Admin: 03/02/18 21:34 Dose: 25 mg Insulin Aspart (Novolog) 0 unit SC [facility]; Protocol Last Admin: 03/02/18 21:37 Dose: Not Given Insulin Glargine (Lantus) 24 unit SC HS [facility] Last Admin: 03/02/18 21:34 Dose: 24 units Pantoprazole Sodium (Protonix Ec Tab) 40 mg PO DAILY [facility] Last Admin: 03/02/18 09:52 Dose: 40 mg Rosuvastatin Calcium (Crestor) 5 mg PO HS [facility] Last Admin: 03/02/18 21:34 Dose: 5 mg Fluticasone/Salmeterol (Advair Diskus 500/50) 1 puff INH RQ12 [facility] Last Admin: 03/02/18 19:34 Dose: Not Given Sevelamer Carbonate (Renvela) 2.4 gm PO TIDCC [facility] Last Admin: 03/02/18 17:27 Dose: 2.4 gm Sodium Bicarbonate (Sodium Bicarbonate Tab) 650 mg PO Q8 [facility] Last Admin: 03/02/18 21:34 Dose: 650 mg Vitamin B Complex/Vit C/Folic Acid (Nephro-Vince) 1 tab PO 0800 [facility] Last Admin: 03/02/18 08:12 Dose: 1 tab - Labs Labs: 03/01/18 08:18 03/01/18 08:18 PT 11.4 SECONDS (9.7-12.2) 02/24/18 00:56 INR 1.0 02/24/18 00:56 APTT 33 SECONDS (21-34) 02/24/18 00:56 - Constitutional Appears: Non-toxic - Eye Exam Eye Exam: Scleral icterus - Respiratory Exam Respiratory Exam: NORMAL BREATHING PATTERN - Cardiovascular Exam Cardiovascular Exam: REGULAR RHYTHM - GI/Abdominal Exam GI & Abdominal Exam: Soft - Extremities Exam Extremities Exam: absent: Pedal Edema Additional comments: non-healing ulcer Assessment and Plan - Assessment and Plan (Free Text) Assessment: CAD-stable PVD CKD stage 3 HTN T2dm Plan: Cont meds Cont vasc work-up Renal input appreciated
--- NOTE | 2018-03-02 22:42 | CP.PCM.PN ---
Subjective - Date & Time of Evaluation Date of Evaluation: 02/23/18 Time of Evaluation: 08:35 - Subjective Subjective: BUN 59 Creat 3.7 discussed with Renal recommends AVFistula contemplating hemodialysis in the near future Objective - Vital Signs/Intake and Output Vital Signs (last 24 hours): Temp Pulse Resp BP Pulse Ox 98.0 F 79 18 146/74 94 L 03/02/18 15:20 03/02/18 16:00 03/02/18 15:20 03/02/18 17:29 03/02/18 15:20 Intake and Output: 03/02/18 03/03/18 18:59 06:59 Intake Total 400 Balance 400 - Medications Medications: Current Medications Albuterol (Ventolin Hfa 90 Mcg/Actuation (8 G)) 1 puff IH RQID PRN PRN Reason: Wheezing Last Admin: 03/01/18 07:30 Dose: 1 puff Amlodipine Besylate (Norvasc) 10 mg PO DAILY [facility] Last Admin: 03/02/18 09:52 Dose: 10 mg Aspirin (Ecotrin) 81 mg PO DAILY [facility] Last Admin: 03/02/18 09:50 Dose: 81 mg Carvedilol (Coreg) 12.5 mg PO BID [facility] Last Admin: 03/02/18 17:29 Dose: 12.5 mg Cyclobenzaprine HCl (Flexeril) 10 mg PO Q8 PRN PRN Reason: Muscle spasm Last Admin: 03/02/18 12:48 Dose: 10 mg Epoetin Tito (Procrit) 10,000 unit IV MWF [facility] Last Admin: 03/01/18 10:59 Dose: 10,000 unit Ferrous Sulfate (Feosol) 325 mg PO TID [facility] Last Admin: 03/02/18 17:27 Dose: 325 mg Gabapentin (Neurontin) 100 mg PO TID [facility] Last Admin: 03/02/18 17:27 Dose: 100 mg Hydralazine HCl (Apresoline) 25 mg PO Q8 [facility] Last Admin: 03/02/18 21:34 Dose: 25 mg Insulin Aspart (Novolog) 0 unit SC [facility]; Protocol Last Admin: 03/02/18 21:37 Dose: Not Given Insulin Glargine (Lantus) 24 unit SC HS [facility] Last Admin: 03/02/18 21:34 Dose: 24 units Pantoprazole Sodium (Protonix Ec Tab) 40 mg PO DAILY [facility] Last Admin: 03/02/18 09:52 Dose: 40 mg Rosuvastatin Calcium (Crestor) 5 mg PO HS [facility] Last Admin: 03/02/18 21:34 Dose: 5 mg Fluticasone/Salmeterol (Advair Diskus 500/50) 1 puff INH RQ12 [facility] Last Admin: 03/02/18 19:34 Dose: Not Given Sevelamer Carbonate (Renvela) 2.4 gm PO TIDCC [facility] Last Admin: 03/02/18 17:27 Dose: 2.4 gm Sodium Bicarbonate (Sodium Bicarbonate Tab) 650 mg PO Q8 [facility] Last Admin: 03/02/18 21:34 Dose: 650 mg Vitamin B Complex/Vit C/Folic Acid (Nephro-Vince) 1 tab PO 0800 [facility] Last Admin: 03/02/18 08:12 Dose: 1 tab - Labs Labs: 03/01/18 08:18 03/01/18 08:18 PT 11.4 SECONDS (9.7-12.2) 02/24/18 00:56 INR 1.0 02/24/18 00:56 APTT 33 SECONDS (21-34) 02/24/18 00:56 - Constitutional Appears: Non-toxic - Head Exam Head Exam: NORMAL INSPECTION - Eye Exam Eye Exam: absent: Scleral icterus - Neck Exam Neck Exam: Full ROM - Respiratory Exam Respiratory Exam: NORMAL BREATHING PATTERN - Cardiovascular Exam Cardiovascular Exam: REGULAR RHYTHM - GI/Abdominal Exam GI & Abdominal Exam: Soft. absent: Tenderness - Extremities Exam Extremities Exam: absent: Pedal Edema - Neurological Exam Neurological Exam: Alert Assessment and Plan - Assessment and Plan (Free Text) Assessment: CKD stage 3-4 HTN CAD PVD T2dm Plan: Will notify Dr Hatfield for AV fistula Ok for AVfistula implant with acceptable risk
--- NOTE | 2018-03-02 22:49 | CP.PCM.PN ---
Subjective - Date & Time of Evaluation Date of Evaluation: 02/24/18 Time of Evaluation: 08:00 - Subjective Subjective: for AV fistula today no chest pain no CHF BUN 59 Creat 3.7 Objective - Vital Signs/Intake and Output Vital Signs (last 24 hours): Temp Pulse Resp BP Pulse Ox 98.0 F 79 18 146/74 94 L 03/02/18 15:20 03/02/18 16:00 03/02/18 15:20 03/02/18 17:29 03/02/18 15:20 Intake and Output: 03/02/18 03/03/18 18:59 06:59 Intake Total 400 Balance 400 - Medications Medications: Current Medications Albuterol (Ventolin Hfa 90 Mcg/Actuation (8 G)) 1 puff IH RQID PRN PRN Reason: Wheezing Last Admin: 03/01/18 07:30 Dose: 1 puff Amlodipine Besylate (Norvasc) 10 mg PO DAILY [facility] Last Admin: 03/02/18 09:52 Dose: 10 mg Aspirin (Ecotrin) 81 mg PO DAILY [facility] Last Admin: 03/02/18 09:50 Dose: 81 mg Carvedilol (Coreg) 12.5 mg PO BID [facility] Last Admin: 03/02/18 17:29 Dose: 12.5 mg Cyclobenzaprine HCl (Flexeril) 10 mg PO Q8 PRN PRN Reason: Muscle spasm Last Admin: 03/02/18 12:48 Dose: 10 mg Epoetin Tito (Procrit) 10,000 unit IV MWF [facility] Last Admin: 03/01/18 10:59 Dose: 10,000 unit Ferrous Sulfate (Feosol) 325 mg PO TID [facility] Last Admin: 03/02/18 17:27 Dose: 325 mg Gabapentin (Neurontin) 100 mg PO TID [facility] Last Admin: 03/02/18 17:27 Dose: 100 mg Hydralazine HCl (Apresoline) 25 mg PO Q8 [facility] Last Admin: 03/02/18 21:34 Dose: 25 mg Insulin Aspart (Novolog) [facility]; Protocol Last Admin: 03/02/18 21:37 Dose: Not Given Insulin Glargine (Lantus) 24 unit SC HS [facility] Last Admin: 03/02/18 21:34 Dose: 24 units Pantoprazole Sodium (Protonix Ec Tab) 40 mg PO DAILY [facility] Last Admin: 03/02/18 09:52 Dose: 40 mg Rosuvastatin Calcium (Crestor) 5 mg PO HS [facility] Last Admin: 03/02/18 21:34 Dose: 5 mg Fluticasone/Salmeterol (Advair Diskus 500/50) 1 puff INH RQ12 [facility] Last Admin: 03/02/18 19:34 Dose: Not Given Sevelamer Carbonate (Renvela) 2.4 gm PO TIDCC [facility] Last Admin: 03/02/18 17:27 Dose: 2.4 gm Sodium Bicarbonate (Sodium Bicarbonate Tab) 650 mg PO Q8 [facility] Last Admin: 03/02/18 21:34 Dose: 650 mg Vitamin B Complex/Vit C/Folic Acid (Nephro-Vince) 1 tab PO 0800 [facility] Last Admin: 03/02/18 08:12 Dose: 1 tab - Labs Labs: 03/01/18 08:18 03/01/18 08:18 PT 11.4 SECONDS (9.7-12.2) 02/24/18 00:56 INR 1.0 02/24/18 00:56 APTT 33 SECONDS (21-34) 02/24/18 00:56 - Constitutional Appears: Non-toxic - Head Exam Head Exam: NORMAL INSPECTION - Eye Exam Eye Exam: absent: Scleral icterus - Neck Exam Neck Exam: Full ROM - Respiratory Exam Respiratory Exam: NORMAL BREATHING PATTERN - Cardiovascular Exam Cardiovascular Exam: REGULAR RHYTHM - GI/Abdominal Exam GI & Abdominal Exam: Soft - Extremities Exam Extremities Exam: Pedal Edema - Neurological Exam Neurological Exam: Alert Assessment and Plan - Assessment and Plan (Free Text) Assessment: CKD CAD PVD HTN T2dm Plan: Cont meds Ok for AV fistula today from cardiac standpoint
--- NOTE | 2018-03-02 22:54 | CP.PCM.PN ---
Subjective - Date & Time of Evaluation Date of Evaluation: 03/01/18 Time of Evaluation: 08:40 - Subjective Subjective: still with pain at surgical site no chest pain no sob Objective - Vital Signs/Intake and Output Vital Signs (last 24 hours): Temp Pulse Resp BP Pulse Ox 98.0 F 79 18 146/74 94 L 03/02/18 15:20 03/02/18 16:00 03/02/18 15:20 03/02/18 17:29 03/02/18 15:20 Intake and Output: 03/02/18 03/03/18 18:59 06:59 Intake Total 400 Balance 400 - Medications Medications: Current Medications Albuterol (Ventolin Hfa 90 Mcg/Actuation (8 G)) 1 puff IH RQID PRN PRN Reason: Wheezing Last Admin: 03/01/18 07:30 Dose: 1 puff Amlodipine Besylate (Norvasc) 10 mg PO DAILY [facility] Last Admin: 03/02/18 09:52 Dose: 10 mg Aspirin (Ecotrin) 81 mg PO DAILY [facility] Last Admin: 03/02/18 09:50 Dose: 81 mg Carvedilol (Coreg) 12.5 mg PO BID [facility] Last Admin: 03/02/18 17:29 Dose: 12.5 mg Cyclobenzaprine HCl (Flexeril) 10 mg PO Q8 PRN PRN Reason: Muscle spasm Last Admin: 03/02/18 12:48 Dose: 10 mg Epoetin Tito (Procrit) 10,000 unit IV MWF [facility] Last Admin: 03/01/18 10:59 Dose: 10,000 unit Ferrous Sulfate (Feosol) 325 mg PO TID [facility] Last Admin: 03/02/18 17:27 Dose: 325 mg Gabapentin (Neurontin) 100 mg PO TID [facility] Last Admin: 03/02/18 17:27 Dose: 100 mg Hydralazine HCl (Apresoline) 25 mg PO Q8 [facility] Last Admin: 03/02/18 21:34 Dose: 25 mg Insulin Aspart (Novolog) 0 unit SC [facility]; Protocol Last Admin: 03/02/18 21:37 Dose: Not Given Insulin Glargine (Lantus) 24 unit SC HS [facility] Last Admin: 03/02/18 21:34 Dose: 24 units Pantoprazole Sodium (Protonix Ec Tab) 40 mg PO DAILY [facility] Last Admin: 03/02/18 09:52 Dose: 40 mg Rosuvastatin Calcium (Crestor) 5 mg PO HS [facility] Last Admin: 03/02/18 21:34 Dose: 5 mg Fluticasone/Salmeterol (Advair Diskus 500/50) 1 puff INH RQ12 [facility] Last Admin: 03/02/18 19:34 Dose: Not Given Sevelamer Carbonate (Renvela) 2.4 gm PO TIDCC [facility] Last Admin: 03/02/18 17:27 Dose: 2.4 gm Sodium Bicarbonate (Sodium Bicarbonate Tab) 650 mg PO Q8 [facility] Last Admin: 03/02/18 21:34 Dose: 650 mg Vitamin B Complex/Vit C/Folic Acid (Nephro-Vince) 1 tab PO 0800 [facility] Last Admin: 03/02/18 08:12 Dose: 1 tab - Labs Labs: 03/01/18 08:18 03/01/18 08:18 PT 11.4 SECONDS (9.7-12.2) 02/24/18 00:56 INR 1.0 02/24/18 00:56 APTT 33 SECONDS (21-34) 02/24/18 00:56 - Constitutional Appears: Non-toxic - Head Exam Head Exam: NORMAL INSPECTION - Eye Exam Eye Exam: absent: Scleral icterus - Neck Exam Neck Exam: Full ROM - Respiratory Exam Respiratory Exam: NORMAL BREATHING PATTERN - GI/Abdominal Exam GI & Abdominal Exam: Soft - Extremities Exam Extremities Exam: absent: Pedal Edema Assessment and Plan - Assessment and Plan (Free Text) Assessment: ESRD CAD PVD T2dm HTN Plan: Cont meds Hemodialysis
--- NOTE | 2018-03-03 01:54 | PN ---
DATE: 03/02/2018 FOLLOWUP RENAL CONSULTATION LOCATION: The patient is located in room 660, bed B. REQUESTED BY: Wes Carrillo MD REASON FOR RENAL CONSULTATION: Acute renal failure, chronic kidney disease, on hemodialysis. SUBJECTIVE: Mrs. Orozco is a 52-year-old middle-aged [place] female with a history of hypertension, diabetes, coronary artery disease, status post CABG, peripheral vascular disease, status post angioplasty with right foot ulcer who was admitted with a severe headache and right-sided body pain and found to have worsening renal function, anemia, and hospital course complicated by worsening renal function, requiring initiation of the renal replacement therapy for severe hyperkalemia and metabolic acidosis. The patient is feeling much better after initiation of hemodialysis. No chest pain. No palpitation. No fever. No cough. No abdominal pain. No nausea, vomiting, or diarrhea.. Status post left upper extremity AV fistula with a good bruit. PHYSICAL EXAMINATION: VITAL SIGNS: As follows this morning: Blood pressure 131/67, pulse 84, respiration 89, temperature 98, saturation 94%. Height 5 feet 5 inches, and weight is 132 pounds. GENERAL: Mrs. Orozco is a 52-year-old female, moderately built, moderately nourished, not in acute distress. HEENT: Pupils are normally reactive to light and accommodation. Conjunctivae pink. Sclerae slightly pale. No thyroid enlargement. LUNGS: Symmetric on both sides. Bilateral breath sounds present. Clear to auscultation. CARDIOVASCULAR SYSTEM: [place] at the fifth intercostal space, midclavicular line. S1, S2 audible. No murmur or gallop. ABDOMEN: Normal in appearance, soft, tympanitic. No guarding. No rigidity. No hepatosplenomegaly. CENTRAL NERVOUS SYSTEM: The patient is alert, awake, oriented x3. Nonfocal neuro examination. Cranial nerves II-XII grossly intact. Sensory and motor system is within normal limits. EXTREMITIES: No cyanosis, no clubbing, and no edema. LABORATORY DATA: No new labs available for today. Accu-Cheks, 105 and 132. ASSESSMENT: In summary, Mrs. Orozco is a 52-year-old female with hypertension, diabetes, coronary artery disease, status post coronary artery bypass graft, hyperlipidemia, chronic kidney disease, massive proteinuria with worsening renal function, requiring initiation of the renal replacement therapy and transfusion of one unit of packed red blood cells 1. Acute renal failure on chronic kidney disease, most likely secondary to acute tubular necrosis, doubt progression of the chronic kidney disease to end-stage renal disease. 2. Hypertension. 3. Anemia secondary to end-stage renal disease, rule out iron-deficiency anemia. 4. Massive proteinuria, most likely secondary to diabetic nephropathy. 5. Status post metabolic acidosis and hyperkalemia secondary to renal failure. PLAN: Continue hemodialysis in a.m. and then re-evaluate after tomorrow's dialysis treatment for possible holding off dialysis. Continue all her current medications. Continue hydralazine, Coreg and amlodipine and also continue Procrit, Renvela, ferrous sulfate, and Crestor. We will discontinue sodium bicarbonate p.o. Thank you for allowing me to participate in your patient's care. Vasiliy Emery MD MTDUlises
[2018-03-03] MEDS: (Novolog) Insulin Aspart, Recombinant 100 u/ml 10 ml vial SC SCH ×4 (07:12→22:04)
[2018-03-03 08:02] LABS: HEMOGLOBIN 8.5 g/dL (11.0-16.0); MEAN CELL VOLUME 78.6 fL (81.0-99.0); MEAN CORPUSCULAR HEMOGLOBIN 24.9 pg (27.0-31.0); MEAN CORPUSCULAR HGB CONC 31.7 g/dL (33.0-37.0); MEAN PLATELET VOLUME 8.1 fL (7.2-11.7); RBC 3.43 Mil/uL (3.80-5.20); RED CELL DISTRIBUTION WIDTH 17.9 % (11.5-14.5); WHITE BLOOD COUNT 8.4 K/uL (4.8-10.8)
[2018-03-03] MEDS: Fluticasone-Salmeterol 500-50mcg Diskus INH SCH ×2 (08:17→19:28)
[2018-03-03 08:18] LABS: ALB/GLOB RATIO 0.9 (1.0-2.1); ALBUMIN 2.8 g/dL (3.5-5.0); CALCIUM 8.3 mg/dl (8.6-10.4)
[2018-03-03] MEDS: Multivitamin Vitamin B Complex (Nephro-Vite) Tab PO SCH (08:40)
[2018-03-03] MEDS: Sevelamer Carb 2.4 gm/Packet PO SCH ×3 (08:40→17:56)
[2018-03-03] MEDS: Epoetin Alfa 10,000 unit/ml Dialysis IV SCH (10:10)
--- NOTE | 2018-03-03 10:25 | CP.PCM.PN ---
Subjective - Date & Time of Evaluation Date of Evaluation: 03/03/18 Time of Evaluation: 10:24 - Subjective Subjective: Podiatry Progress note: Dr. Mcmanus 52 year old female evaluated at bedside in dialysis for right foot ulceration. Patient is seen resting comfortably in bed, in NAD. Reports that she is feeling a lot better today. Patient denies pain to the right foot. Dressing is clean dry and intact, Denies of recent F/N/V/C/SOB/CP/headache. Objective - Vital Signs/Intake and Output Vital Signs (last 24 hours): Temp Pulse Resp BP Pulse Ox 98.4 F 91 H 20 150/79 95 03/03/18 09:10 03/03/18 09:10 03/03/18 09:10 03/03/18 10:10 03/03/18 09:10 Intake and Output: 03/03/18 03/03/18 06:59 18:59 Intake Total 460 Balance 460 - Medications Medications: Current Medications Albuterol (Ventolin Hfa 90 Mcg/Actuation (8 G)) 1 puff IH RQID PRN PRN Reason: Wheezing Last Admin: 03/01/18 07:30 Dose: 1 puff Amlodipine Besylate (Norvasc) 10 mg PO DAILY [facility] Last Admin: 03/02/18 09:52 Dose: 10 mg Aspirin (Ecotrin) 81 mg PO DAILY [facility] Last Admin: 03/02/18 09:50 Dose: 81 mg Carvedilol (Coreg) 12.5 mg PO BID [facility] Last Admin: 03/03/18 09:11 Dose: Not Given Cyclobenzaprine HCl (Flexeril) 10 mg PO Q8 PRN PRN Reason: Muscle spasm Last Admin: 03/02/18 12:48 Dose: 10 mg Epoetin Tito (Procrit) 10,000 unit IV MWF [facility] Last Admin: 03/03/18 10:10 Dose: 10,000 unit Ferrous Sulfate (Feosol) 325 mg PO TID [facility] Last Admin: 03/02/18 17:27 Dose: 325 mg Gabapentin (Neurontin) 100 mg PO TID [facility] Last Admin: 03/03/18 09:11 Dose: Not Given Hydralazine HCl (Apresoline) 25 mg PO Q8 [facility] Last Admin: 03/03/18 05:46 Dose: 25 mg Insulin Aspart (Novolog) 0 unit SC [facility]; Protocol Last Admin: 03/03/18 07:12 Dose: Not Given Insulin Glargine (Lantus) 24 unit SC [facility] Last Admin: 03/02/18 21:34 Dose: 24 units Pantoprazole Sodium (Protonix Ec Tab) 40 mg PO DAILY [facility] Last Admin: 03/02/18 09:52 Dose: 40 mg Rosuvastatin Calcium (Crestor) 5 mg PO HS [facility] Last Admin: 03/02/18 21:34 Dose: 5 mg Fluticasone/Salmeterol (Advair Diskus 500/50) 1 puff INH RQ12 [facility] Last Admin: 03/02/18 19:34 Dose: Not Given Sevelamer Carbonate (Renvela) 2.4 gm PO TIDCC [facility] Last Admin: 03/03/18 08:40 Dose: 2.4 gm Sodium Bicarbonate (Sodium Bicarbonate Tab) 650 mg PO Q8 [facility] Last Admin: 03/03/18 05:46 Dose: 650 mg Vitamin B Complex/Vit C/Folic Acid (Nephro-Vince) 1 tab PO 0800 [facility] Last Admin: 03/03/18 08:40 Dose: 1 tab - Labs Labs: 03/03/18 07:52 03/03/18 07:52 PT 11.4 SECONDS (9.7-12.2) 02/24/18 00:56 INR 1.0 02/24/18 00:56 APTT 33 SECONDS (21-34) 02/24/18 00:56 - Constitutional Appears: Well, Non-toxic, No Acute Distress - Extremities Exam Additional comments: LE focused exam: VASC: DP/PT non-palpable b/l, temperature gradient warm to cool from proximal to distal b/l, Cap refill delayed to digits > 4 sec, no edema noted b/l. NEURO: Gross sensation intact, Protective sensation diminished DERM: Circular ulceration noted to the lateral aspect of 5th metatarsal base measuring approximately 0.5 cm in diameter with no depth. No drainage, No e rythema, No fluctanance noted, No streaking. Ulcer is surrounded by hyperkeratotic area. No clinical signs of infection. MSK: Very minimal pain on palpating at site of ulceration. - Neurological Exam Neurological Exam: Alert, Awake, Oriented x3 - Psychiatric Exam Psychiatric exam: Normal Affect, Normal Mood Assessment and Plan - Assessment and Plan (Free Text) Assessment: 52 year old female with stable non-infected right foot ulceration Plan: Patient seen and evaluated Discussed plan with Dr. Mcmanus Labs, charts reviewed; Afebrile Ulcer appears non-infected clinically at this time Ulcer dressed with betadine, DSD Stable from podiatry standpoint Will continue to follow up patient while in house
[2018-03-03] MEDS: Pantoprazole 40 mg EC Tab PO SCH (13:05)
--- NOTE | 2018-03-03 17:16 | CP.PCM.PN ---
Subjective - Date & Time of Evaluation Date of Evaluation: 03/03/18 Time of Evaluation: 08:00 - Subjective Subjective: afeb weak nad Objective - Vital Signs/Intake and Output Vital Signs (last 24 hours): Temp Pulse Resp BP Pulse Ox 97.7 F 97 H 20 158/73 H 94 L 03/03/18 15:35 03/03/18 15:35 03/03/18 15:35 03/03/18 15:35 03/03/18 15:35 Intake and Output: 03/03/18 03/03/18 06:59 18:59 Intake Total 460 400 Balance 460 400 - Medications Medications: Current Medications Albuterol (Ventolin Hfa 90 Mcg/Actuation (8 G)) 1 puff IH RQID PRN PRN Reason: Wheezing Last Admin: 03/01/18 07:30 Dose: 1 puff Amlodipine Besylate (Norvasc) 10 mg PO DAILY [facility] Last Admin: 03/03/18 13:05 Dose: 10 mg Aspirin (Ecotrin) 81 mg PO DAILY [facility] Last Admin: 03/03/18 13:05 Dose: 81 mg Carvedilol (Coreg) 12.5 mg PO BID [facility] Last Admin: 03/03/18 09:11 Dose: Not Given Cyclobenzaprine HCl (Flexeril) 10 mg PO Q8 PRN PRN Reason: Muscle spasm Last Admin: 03/02/18 12:48 Dose: 10 mg Epoetin Tito (Procrit) 10,000 unit IV MWF [facility] Last Admin: 03/03/18 10:10 Dose: 10,000 unit Ferrous Sulfate (Feosol) 325 mg PO TID [facility] Last Admin: 03/03/18 13:05 Dose: 325 mg Gabapentin (Neurontin) 100 mg PO TID [facility] Last Admin: 03/03/18 13:05 Dose: 100 mg Hydralazine HCl (Apresoline) 25 mg PO Q8 [facility] Last Admin: 03/03/18 13:05 Dose: 25 mg Insulin Aspart (Novolog) 0 unit SC [facility]; Protocol Last Admin: 03/03/18 11:25 Dose: Not Given Insulin Glargine (Lantus) 24 unit SC HS [facility] Last Admin: 03/02/18 21:34 Dose: 24 units Pantoprazole Sodium (Protonix Ec Tab) 40 mg PO DAILY [facility] Last Admin: 03/03/18 13:05 Dose: 40 mg Rosuvastatin Calcium (Crestor) 5 mg PO HS [facility] Last Admin: 03/02/18 21:34 Dose: 5 mg Fluticasone/Salmeterol (Advair Diskus 500/50) 1 puff INH RQ12 [facility] Last Admin: 03/02/18 19:34 Dose: Not Given Sevelamer Carbonate (Renvela) 2.4 gm PO TIDCC [facility] Last Admin: 03/03/18 13:05 Dose: 2.4 gm Sodium Bicarbonate (Sodium Bicarbonate Tab) 650 mg PO Q8 [facility] Last Admin: 03/03/18 13:05 Dose: 650 mg Vitamin B Complex/Vit C/Folic Acid (Nephro-Vince) 1 tab PO 0800 [facility] Last Admin: 03/03/18 08:40 Dose: 1 tab - Labs Labs: 03/03/18 07:52 03/03/18 07:52 PT 11.4 SECONDS (9.7-12.2) 02/24/18 00:56 INR 1.0 02/24/18 00:56 APTT 33 SECONDS (21-34) 02/24/18 00:56 - Constitutional Appears: Non-toxic, Chronically Ill - Head Exam Head Exam: NORMOCEPHALIC - Eye Exam Eye Exam: PERRL - ENT Exam ENT Exam: Mucous Membranes Dry - Neck Exam Neck Exam: absent: Lymphadenopathy - Respiratory Exam Respiratory Exam: Decreased Breath Sounds - Cardiovascular Exam Cardiovascular Exam: REGULAR RHYTHM - GI/Abdominal Exam GI & Abdominal Exam: Distended, Soft - Rectal Exam Rectal Exam: Deferred - Exam Exam: NORMAL INSPECTION - Extremities Exam Extremities Exam: absent: Pedal Edema - Back Exam Back Exam: absent: CVA tenderness (L), CVA tenderness (R) - Neurological Exam Neurological Exam: Alert, Awake, Oriented x3 Assessment and Plan (1) BLAYNE (acute kidney injury) Status: Acute (2) Hypertension Status: Chronic (3) CKD (chronic kidney disease) Status: Acute (4) Diabetes mellitus Status: Acute (5) Non-healing ulcer of foot Status: Acute (6) PVD (peripheral vascular disease) Status: Acute (7) Renal insufficiency Status: Acute (8) Diabetes mellitus type 2 in nonobese Status: Chronic - Assessment and Plan (Free Text) Assessment: cont rx as ordered by dr Man
--- NOTE | 2018-03-03 18:07 | CP.PCM.PN ---
Subjective - Date & Time of Evaluation Date of Evaluation: 03/03/18 Time of Evaluation: 18:06 - Subjective Subjective: pt is seen and examined s/p hd today, renal function is slowly improving, will try to hold hd check bmp daily x 3 days Objective - Vital Signs/Intake and Output Vital Signs (last 24 hours): Temp Pulse Resp BP Pulse Ox 97.7 F 97 H 20 158/73 H 94 L 03/03/18 15:35 03/03/18 15:35 03/03/18 15:35 03/03/18 17:55 03/03/18 15:35 Intake and Output: 03/03/18 03/03/18 06:59 18:59 Intake Total 460 400 Balance 460 400 - Medications Medications: Current Medications Albuterol (Ventolin Hfa 90 Mcg/Actuation (8 G)) 1 puff IH RQID PRN PRN Reason: Wheezing Last Admin: 03/01/18 07:30 Dose: 1 puff Amlodipine Besylate (Norvasc) 10 mg PO DAILY [facility] Last Admin: 03/03/18 13:05 Dose: 10 mg Aspirin (Ecotrin) 81 mg PO DAILY [facility] Last Admin: 03/03/18 13:05 Dose: 81 mg Carvedilol (Coreg) 12.5 mg PO BID [facility] Last Admin: 03/03/18 17:55 Dose: 12.5 mg Cyclobenzaprine HCl (Flexeril) 10 mg PO Q8 PRN PRN Reason: Muscle spasm Last Admin: 03/02/18 12:48 Dose: 10 mg Epoetin Tito (Procrit) 10,000 unit IV MWF [facility] Last Admin: 03/03/18 10:10 Dose: 10,000 unit Ferrous Sulfate (Feosol) 325 mg PO TID [facility] Last Admin: 03/03/18 17:56 Dose: 325 mg Gabapentin (Neurontin) 100 mg PO TID [facility] Last Admin: 03/03/18 17:56 Dose: 100 mg Hydralazine HCl (Apresoline) 25 mg PO Q8 [facility] Last Admin: 03/03/18 13:05 Dose: 25 mg Insulin Aspart (Novolog) 0 unit SC ACHS [facility]; Protocol Last Admin: 03/03/18 17:57 Dose: 2 units Insulin Glargine (Lantus) 24 unit SC HS [facility] Last Admin: 03/02/18 21:34 Dose: 24 units Pantoprazole Sodium (Protonix Ec Tab) 40 mg PO DAILY [facility] Last Admin: 03/03/18 13:05 Dose: 40 mg Rosuvastatin Calcium (Crestor) 5 mg PO HS [facility] Last Admin: 03/02/18 21:34 Dose: 5 mg Fluticasone/Salmeterol (Advair Diskus 500/50) 1 puff INH RQ12 [facility] Last Admin: 03/02/18 19:34 Dose: Not Given Sevelamer Carbonate (Renvela) 2.4 gm PO TIDCC [facility] Last Admin: 03/03/18 17:56 Dose: 2.4 gm Sodium Bicarbonate (Sodium Bicarbonate Tab) 650 mg PO Q8 [facility] Last Admin: 03/03/18 13:05 Dose: 650 mg Vitamin B Complex/Vit C/Folic Acid (Nephro-Vince) 1 tab PO 0800 [facility] Last Admin: 03/03/18 08:40 Dose: 1 tab - Labs Labs: 03/03/18 07:52 03/03/18 07:52 PT 11.4 SECONDS (9.7-12.2) 02/24/18 00:56 INR 1.0 02/24/18 00:56 APTT 33 SECONDS (21-34) 02/24/18 00:56 - Constitutional Appears: Well, Non-toxic, No Acute Distress - Head Exam Head Exam: ATRAUMATIC, NORMAL INSPECTION, NORMOCEPHALIC - Eye Exam Eye Exam: EOMI, Normal appearance Pupil Exam: NORMAL ACCOMODATION, PERRL Additional comments: b/l poor vision - ENT Exam ENT Exam: Mucous Membranes Moist, Normal Exam - Neck Exam Neck Exam: Full ROM, Normal Inspection - Respiratory Exam Respiratory Exam: Clear to Ausculation Bilateral, NORMAL BREATHING PATTERN - Cardiovascular Exam Cardiovascular Exam: REGULAR RHYTHM, +S1, +S2 - GI/Abdominal Exam GI & Abdominal Exam: Soft, Normal Bowel Sounds - Extremities Exam Extremities Exam: Full ROM, Normal Inspection - Back Exam Back Exam: NORMAL INSPECTION - Neurological Exam Neurological Exam: Alert, Awake, CN II-XII Intact, Normal Gait, Oriented x3 - Psychiatric Exam Psychiatric exam: Normal Affect, Normal Mood - Skin Skin Exam: Normal Color, Warm Assessment and Plan - Assessment and Plan (Free Text) Plan: 52 yo [place] female with pmh/o htn, dm cda, s/p cabg, hld, ckd-4, proteinuria > 15 gm, anemai, met. acidosis s/p left UE avf with increased bun/cr 1. BLAYNE on ckd-4 2. CKD-4 mlost likely sec to DM nephropathy 3. Anmeia sec to CKD 4. sec. HPTH 5. HTN 6. uncontrolled DM 7. s/p Hemodialysis pt is on temporary HD , check bmp daily, will try hold HD if renal function continue to improve c/w current meds, hydralazine,coreg, amlodipine, epogen, nephrovite, iron
--- NOTE | 2018-03-03 18:24 | CP.PCM.PN ---
Subjective - Date & Time of Evaluation Date of Evaluation: 04/03/18 Time of Evaluation: 05:00 - Subjective Subjective: no new complaints less sob Objective - Vital Signs/Intake and Output Vital Signs (last 24 hours): Temp Pulse Resp BP Pulse Ox 97.7 F 97 H 20 158/73 H 94 L 03/03/18 15:35 03/03/18 15:35 03/03/18 15:35 03/03/18 17:55 03/03/18 15:35 Intake and Output: 03/03/18 03/03/18 06:59 18:59 Intake Total 460 400 Balance 460 400 - Medications Medications: Current Medications Albuterol (Ventolin Hfa 90 Mcg/Actuation (8 G)) 1 puff IH RQID PRN PRN Reason: Wheezing Last Admin: 03/01/18 07:30 Dose: 1 puff Amlodipine Besylate (Norvasc) 10 mg PO DAILY [facility] Last Admin: 03/03/18 13:05 Dose: 10 mg Aspirin (Ecotrin) 81 mg PO DAILY [facility] Last Admin: 03/03/18 13:05 Dose: 81 mg Carvedilol (Coreg) 12.5 mg PO BID [facility] Last Admin: 03/03/18 17:55 Dose: 12.5 mg Cyclobenzaprine HCl (Flexeril) 10 mg PO Q8 PRN PRN Reason: Muscle spasm Last Admin: 03/02/18 12:48 Dose: 10 mg Epoetin Tito (Procrit) 10,000 unit IV MWF [facility] Last Admin: 03/03/18 10:10 Dose: 10,000 unit Ferrous Sulfate (Feosol) 325 mg PO TID [facility] Last Admin: 03/03/18 17:56 Dose: 325 mg Gabapentin (Neurontin) 100 mg PO TID [facility] Last Admin: 03/03/18 17:56 Dose: 100 mg Hydralazine HCl (Apresoline) 25 mg PO Q8 [facility] Last Admin: 03/03/18 13:05 Dose: 25 mg Insulin Aspart (Novolog) 0 unit SC [facility]; Protocol Last Admin: 03/03/18 17:57 Dose: 2 units Insulin Glargine (Lantus) 24 unit SC HS [facility] Last Admin: 03/02/18 21:34 Dose: 24 units Pantoprazole Sodium (Protonix Ec Tab) 40 mg PO DAILY [facility] Last Admin: 03/03/18 13:05 Dose: 40 mg Rosuvastatin Calcium (Crestor) 5 mg PO HS [facility] Last Admin: 03/02/18 21:34 Dose: 5 mg Fluticasone/Salmeterol (Advair Diskus 500/50) 1 puff INH RQ12 [facility] Last Admin: 03/02/18 19:34 Dose: Not Given Sevelamer Carbonate (Renvela) 2.4 gm PO TIDCC [facility] Last Admin: 03/03/18 17:56 Dose: 2.4 gm Sodium Bicarbonate (Sodium Bicarbonate Tab) 650 mg PO Q8 [facility] Last Admin: 03/03/18 13:05 Dose: 650 mg Vitamin B Complex/Vit C/Folic Acid (Nephro-Vince) 1 tab PO 0800 [facility] Last Admin: 03/03/18 08:40 Dose: 1 tab - Labs Labs: 03/03/18 07:52 03/03/18 07:52 PT 11.4 SECONDS (9.7-12.2) 02/24/18 00:56 INR 1.0 02/24/18 00:56 APTT 33 SECONDS (21-34) 02/24/18 00:56 - Constitutional Appears: Non-toxic, Chronically Ill - Head Exam Head Exam: NORMOCEPHALIC - Eye Exam Eye Exam: PERRL - ENT Exam ENT Exam: Mucous Membranes Dry - Neck Exam Neck Exam: absent: Lymphadenopathy - Respiratory Exam Respiratory Exam: Decreased Breath Sounds - Cardiovascular Exam Cardiovascular Exam: REGULAR RHYTHM - GI/Abdominal Exam GI & Abdominal Exam: Distended - Rectal Exam Rectal Exam: Deferred Assessment and Plan (1) BLAYNE (acute kidney injury) Status: Acute (2) Hypertension Status: Chronic (3) CKD (chronic kidney disease) Status: Acute (4) Diabetes mellitus Status: Acute (5) Non-healing ulcer of foot Status: Acute (6) PVD (peripheral vascular disease) Status: Acute (7) Renal insufficiency Status: Acute (8) Diabetes mellitus type 2 in nonobese Status: Chronic
[2018-03-03] MEDS: (Lantus) Insulin Glargine, Recombinant SC SCH (22:04)
--- NOTE | 2018-03-03 22:41 | CP.PCM.PN ---
Subjective - Date & Time of Evaluation Date of Evaluation: 03/03/18 Time of Evaluation: 18:00 - Subjective Subjective: No complaints. Objective - Vital Signs/Intake and Output Vital Signs (last 24 hours): Temp Pulse Resp BP Pulse Ox 97.7 F 97 H 20 158/73 H 94 L 03/03/18 15:35 03/03/18 15:35 03/03/18 15:35 03/03/18 17:55 03/03/18 15:35 Intake and Output: 03/03/18 03/04/18 18:59 06:59 Intake Total 400 Balance 400 - Medications Medications: Current Medications Albuterol (Ventolin Hfa 90 Mcg/Actuation (8 G)) 1 puff IH RQID PRN PRN Reason: Wheezing Last Admin: 03/01/18 07:30 Dose: 1 puff Amlodipine Besylate (Norvasc) 10 mg PO DAILY [facility] Last Admin: 03/03/18 13:05 Dose: 10 mg Aspirin (Ecotrin) 81 mg PO DAILY [facility] Last Admin: 03/03/18 13:05 Dose: 81 mg Carvedilol (Coreg) 12.5 mg PO BID [facility] Last Admin: 03/03/18 17:55 Dose: 12.5 mg Cyclobenzaprine HCl (Flexeril) 10 mg PO Q8 PRN PRN Reason: Muscle spasm Last Admin: 03/03/18 22:08 Dose: 10 mg Epoetin Tito (Procrit) 10,000 unit IV MWF [facility] Last Admin: 03/03/18 10:10 Dose: 10,000 unit Ferrous Sulfate (Feosol) 325 mg PO TID [facility] Last Admin: 03/03/18 17:56 Dose: 325 mg Gabapentin (Neurontin) 100 mg PO TID [facility] Last Admin: 03/03/18 17:56 Dose: 100 mg Hydralazine HCl (Apresoline) 25 mg PO Q8 [facility] Last Admin: 03/03/18 22:03 Dose: 25 mg Insulin Aspart (Novolog) 0 unit SC [facility]; Protocol Last Admin: 03/03/18 22:04 Dose: Not Given Insulin Glargine (Lantus) 24 unit SC HS [facility] Last Admin: 03/03/18 22:04 Dose: 24 units Pantoprazole Sodium (Protonix Ec Tab) 40 mg PO DAILY [facility] Last Admin: 03/03/18 13:05 Dose: 40 mg Rosuvastatin Calcium (Crestor) 5 mg PO HS [facility] Last Admin: 03/03/18 22:03 Dose: 5 mg Fluticasone/Salmeterol (Advair Diskus 500/50) 1 puff INH RQ12 [facility] Last Admin: 03/03/18 19:28 Dose: Not Given Sevelamer Carbonate (Renvela) 2.4 gm PO TIDCC [facility] Last Admin: 03/03/18 17:56 Dose: 2.4 gm Sodium Bicarbonate (Sodium Bicarbonate Tab) 650 mg PO Q8 [facility] Last Admin: 03/03/18 22:03 Dose: 650 mg Vitamin B Complex/Vit C/Folic Acid (Nephro-Vince) 1 tab PO 0800 [facility] Last Admin: 03/03/18 08:40 Dose: 1 tab - Labs Labs: 03/03/18 07:52 03/03/18 07:52 PT 11.4 SECONDS (9.7-12.2) 02/24/18 00:56 INR 1.0 02/24/18 00:56 APTT 33 SECONDS (21-34) 02/24/18 00:56 - Head Exam Head Exam: ATRAUMATIC - Eye Exam Eye Exam: Normal appearance - ENT Exam ENT Exam: Mucous Membranes Dry - Respiratory Exam Respiratory Exam: NORMAL BREATHING PATTERN - Cardiovascular Exam Cardiovascular Exam: +S1, +S2 - GI/Abdominal Exam GI & Abdominal Exam: Normal Bowel Sounds Assessment and Plan (1) Anemia Assessment & Plan: anemia of CKD and chronic disease on EPO per renal transfusion support PRN outpatient screening colonoscopy Status: Acute
--- NOTE | 2018-03-03 22:41 | CP.PCM.PN ---
Subjective - Date & Time of Evaluation Date of Evaluation: 03/02/18 Time of Evaluation: 14:00 - Subjective Subjective: Feels tired. Objective - Vital Signs/Intake and Output Vital Signs (last 24 hours): Temp Pulse Resp BP Pulse Ox 97.7 F 97 H 20 158/73 H 94 L 03/03/18 15:35 03/03/18 15:35 03/03/18 15:35 03/03/18 17:55 03/03/18 15:35 Intake and Output: 03/03/18 03/04/18 18:59 06:59 Intake Total 400 Balance 400 - Medications Medications: Current Medications Albuterol (Ventolin Hfa 90 Mcg/Actuation (8 G)) 1 puff IH RQID PRN PRN Reason: Wheezing Last Admin: 03/01/18 07:30 Dose: 1 puff Amlodipine Besylate (Norvasc) 10 mg PO DAILY [facility] Last Admin: 03/03/18 13:05 Dose: 10 mg Aspirin (Ecotrin) 81 mg PO DAILY [facility] Last Admin: 03/03/18 13:05 Dose: 81 mg Carvedilol (Coreg) 12.5 mg PO BID [facility] Last Admin: 03/03/18 17:55 Dose: 12.5 mg Cyclobenzaprine HCl (Flexeril) 10 mg PO Q8 PRN PRN Reason: Muscle spasm Last Admin: 03/03/18 22:08 Dose: 10 mg Epoetin Tito (Procrit) 10,000 unit IV MWF [facility] Last Admin: 03/03/18 10:10 Dose: 10,000 unit Ferrous Sulfate (Feosol) 325 mg PO TID [facility] Last Admin: 03/03/18 17:56 Dose: 325 mg Gabapentin (Neurontin) 100 mg PO TID [facility] Last Admin: 03/03/18 17:56 Dose: 100 mg Hydralazine HCl (Apresoline) 25 mg PO Q8 [facility] Last Admin: 03/03/18 22:03 Dose: 25 mg Insulin Aspart (Novolog) 0 unit SC [facility]; Protocol Last Admin: 03/03/18 22:04 Dose: Not Given Insulin Glargine (Lantus) 24 unit SC HS [facility] Last Admin: 03/03/18 22:04 Dose: 24 units Pantoprazole Sodium (Protonix Ec Tab) 40 mg PO DAILY [facility] Last Admin: 03/03/18 13:05 Dose: 40 mg Rosuvastatin Calcium (Crestor) 5 mg PO HS [facility] Last Admin: 03/03/18 22:03 Dose: 5 mg Fluticasone/Salmeterol (Advair Diskus 500/50) 1 puff INH RQ12 [facility] Last Admin: 03/03/18 19:28 Dose: Not Given Sevelamer Carbonate (Renvela) 2.4 gm PO TIDCC [facility] Last Admin: 03/03/18 17:56 Dose: 2.4 gm Sodium Bicarbonate (Sodium Bicarbonate Tab) 650 mg PO Q8 [facility] Last Admin: 03/03/18 22:03 Dose: 650 mg Vitamin B Complex/Vit C/Folic Acid (Nephro-Vince) 1 tab PO 0800 [facility] Last Admin: 03/03/18 08:40 Dose: 1 tab - Labs Labs: 03/03/18 07:52 03/03/18 07:52 PT 11.4 SECONDS (9.7-12.2) 02/24/18 00:56 INR 1.0 02/24/18 00:56 APTT 33 SECONDS (21-34) 02/24/18 00:56 - Head Exam Head Exam: ATRAUMATIC - Eye Exam Eye Exam: Normal appearance - ENT Exam ENT Exam: Mucous Membranes Dry - Respiratory Exam Respiratory Exam: NORMAL BREATHING PATTERN - Cardiovascular Exam Cardiovascular Exam: +S1, +S2 - GI/Abdominal Exam GI & Abdominal Exam: Normal Bowel Sounds Assessment and Plan (1) Anemia Assessment & Plan: anemia of CKD and chronic disease on EPO per renal transfusion support PRN outpatient screening colonoscopy Status: Acute
[2018-03-04] MEDS: Multivitamin Vitamin B Complex (Nephro-Vite) Tab PO SCH (08:10)
[2018-03-04] MEDS: Sevelamer Carb 2.4 gm/Packet PO SCH ×3 (08:15→17:55)
[2018-03-04] MEDS: Fluticasone-Salmeterol 500-50mcg Diskus INH SCH ×3 (08:16→19:35)
[2018-03-04] MEDS: (Novolog) Insulin Aspart, Recombinant 100 u/ml 10 ml vial SC SCH ×4 (08:25→22:18)
[2018-03-04] MEDS: Pantoprazole 40 mg EC Tab PO SCH (10:10)
--- NOTE | 2018-03-04 16:08 | CP.PCM.PN ---
Subjective - Date & Time of Evaluation Date of Evaluation: 03/04/18 Time of Evaluation: 16:08 - Subjective Subjective: pt is feeling better, no cp, no sob, claims she is voiding well Objective - Vital Signs/Intake and Output Vital Signs (last 24 hours): Temp Pulse Resp BP Pulse Ox 98.5 F 83 18 127/64 94 L 03/04/18 07:00 03/04/18 07:00 03/04/18 07:00 03/04/18 10:08 03/04/18 07:00 - Medications Medications: Current Medications Albuterol (Ventolin Hfa 90 Mcg/Actuation (8 G)) 1 puff IH RQID PRN PRN Reason: Wheezing Last Admin: 03/01/18 07:30 Dose: 1 puff Amlodipine Besylate (Norvasc) 10 mg PO DAILY [facility] Last Admin: 03/04/18 10:10 Dose: 10 mg Aspirin (Ecotrin) 81 mg PO DAILY [facility] Last Admin: 03/04/18 10:08 Dose: 81 mg Carvedilol (Coreg) 12.5 mg PO BID [facility] Last Admin: 03/04/18 10:08 Dose: 12.5 mg Cyclobenzaprine HCl (Flexeril) 10 mg PO Q8 PRN PRN Reason: Muscle spasm Last Admin: 03/03/18 22:08 Dose: 10 mg Epoetin Tito (Procrit) 10,000 unit IV MWF [facility] Last Admin: 03/03/18 10:10 Dose: 10,000 unit Ferrous Sulfate (Feosol) 325 mg PO TID [facility] Last Admin: 03/04/18 14:26 Dose: 325 mg Gabapentin (Neurontin) 100 mg PO TID [facility] Last Admin: 03/04/18 14:23 Dose: 100 mg Hydralazine HCl (Apresoline) 25 mg PO Q8 [facility] Last Admin: 03/04/18 14:23 Dose: 25 mg Insulin Aspart (Novolog) 0 unit SC [facility]; Protocol Last Admin: 03/04/18 12:54 Dose: 2 units Insulin Glargine (Lantus) 24 unit SC HS [facility] Last Admin: 03/03/18 22:04 Dose: 24 units Pantoprazole Sodium (Protonix Ec Tab) 40 mg PO DAILY [facility] Last Admin: 03/04/18 10:10 Dose: 40 mg Rosuvastatin Calcium (Crestor) 5 mg PO HS [facility] Last Admin: 03/03/18 22:03 Dose: 5 mg Fluticasone/Salmeterol (Advair Diskus 500/50) 1 puff INH RQ12 [facility] Last Admin: 03/04/18 08:16 Dose: Not Given Sevelamer Carbonate (Renvela) 2.4 gm PO TIDCC [facility] Last Admin: 03/04/18 12:54 Dose: 2.4 gm Sodium Bicarbonate (Sodium Bicarbonate Tab) 650 mg PO Q8 [facility] Last Admin: 03/04/18 14:23 Dose: 650 mg Vitamin B Complex/Vit C/Folic Acid (Nephro-Vince) 1 tab PO 0800 [facility] Last Admin: 03/04/18 08:10 Dose: 1 tab - Labs Labs: 03/03/18 07:52 03/03/18 07:52 PT 11.4 SECONDS (9.7-12.2) 02/24/18 00:56 INR 1.0 02/24/18 00:56 APTT 33 SECONDS (21-34) 02/24/18 00:56 - Constitutional Appears: Well, Non-toxic, No Acute Distress - Head Exam Head Exam: ATRAUMATIC, NORMAL INSPECTION, NORMOCEPHALIC - Eye Exam Eye Exam: EOMI, Normal appearance, PERRL Pupil Exam: NORMAL ACCOMODATION Additional comments: poor vision b/l - ENT Exam ENT Exam: Mucous Membranes Moist, Normal Exam - Neck Exam Neck Exam: Full ROM, Normal Inspection - Respiratory Exam Respiratory Exam: Clear to Ausculation Bilateral, NORMAL BREATHING PATTERN - Cardiovascular Exam Cardiovascular Exam: REGULAR RHYTHM, +S1, +S2 - GI/Abdominal Exam GI & Abdominal Exam: Soft, Normal Bowel Sounds Additional comments: non tender, no abdominal bruit, no hepatosplenomegaly - Rectal Exam Rectal Exam: Deferred - Extremities Exam Extremities Exam: Full ROM, Normal Inspection Additional comments: dressing to rt foot+, no edema of legs - Psychiatric Exam Psychiatric exam: Normal Affect, Normal Mood - Skin Skin Exam: Dry, Intact, Normal Color, Warm Assessment and Plan - Assessment and Plan (Free Text) Plan: 52 yo [place] female with pmh/o htn, dm cda, s/p cabg, hld, ckd-4, proteinuria > 15 gm, anemai, met. acidosis s/p left UE avf with increased bun/cr 1. BLAYNE on ckd-4 2. CKD-4 mlost likely sec to DM nephropathy 3. Anmeia sec to CKD 4. sec. HPTH 5. HTN 6. uncontrolled DM pt is on temporary HD , check bmp daily, will try hold HD if renal function continue to improve c/w current meds, hydralazine,coreg, amlodipine, epogen, nephrovite, iron
--- NOTE | 2018-03-04 17:13 | CP.PCM.PN ---
Subjective - Date & Time of Evaluation Date of Evaluation: 03/04/18 Time of Evaluation: 17:11 - Subjective Subjective: Podiatry Progress note: Dr. Mcmanus 52 year old female evaluated at bedside for right foot ulceration. Patient is seen resting comfortably in bed, in NAD. Reports that she is feeling a lot better today. Patient denies pain to the right foot. Dressing is clean dry and intact, Denies of recent F/N/V/C/SOB/CP/headache. Objective - Vital Signs/Intake and Output Vital Signs (last 24 hours): Temp Pulse Resp BP Pulse Ox 98.5 F 78 18 127/64 94 L 03/04/18 07:00 03/04/18 08:00 03/04/18 07:00 03/04/18 10:08 03/04/18 07:00 - Medications Medications: Current Medications Albuterol (Ventolin Hfa 90 Mcg/Actuation (8 G)) 1 puff IH RQID PRN PRN Reason: Wheezing Last Admin: 03/01/18 07:30 Dose: 1 puff Amlodipine Besylate (Norvasc) 10 mg PO DAILY [facility] Last Admin: 03/04/18 10:10 Dose: 10 mg Aspirin (Ecotrin) 81 mg PO DAILY [facility] Last Admin: 03/04/18 10:08 Dose: 81 mg Carvedilol (Coreg) 12.5 mg PO BID [facility] Last Admin: 03/04/18 10:08 Dose: 12.5 mg Cyclobenzaprine HCl (Flexeril) 10 mg PO Q8 PRN PRN Reason: Muscle spasm Last Admin: 03/03/18 22:08 Dose: 10 mg Epoetin Tito (Procrit) 10,000 unit IV MWF [facility] Last Admin: 03/03/18 10:10 Dose: 10,000 unit Ferrous Sulfate (Feosol) 325 mg PO TID [facility] Last Admin: 03/04/18 14:26 Dose: 325 mg Gabapentin (Neurontin) 100 mg PO TID [facility] Last Admin: 03/04/18 14:23 Dose: 100 mg Hydralazine HCl (Apresoline) 25 mg PO Q8 [facility] Last Admin: 03/04/18 14:23 Dose: 25 mg Insulin Aspart (Novolog) 0 unit SC ACHS [facility]; Protocol Last Admin: 03/04/18 12:54 Dose: 2 units Insulin Glargine (Lantus) 24 unit SC HS [facility] Last Admin: 03/03/18 22:04 Dose: 24 units Pantoprazole Sodium (Protonix Ec Tab) 40 mg PO DAILY [facility] Last Admin: 03/04/18 10:10 Dose: 40 mg Rosuvastatin Calcium (Crestor) 5 mg PO HS [facility] Last Admin: 03/03/18 22:03 Dose: 5 mg Fluticasone/Salmeterol (Advair Diskus 500/50) 1 puff INH RQ12 [facility] Last Admin: 03/04/18 08:16 Dose: Not Given Sevelamer Carbonate (Renvela) 2.4 gm PO TIDCC [facility] Last Admin: 03/04/18 12:54 Dose: 2.4 gm Sodium Bicarbonate (Sodium Bicarbonate Tab) 650 mg PO Q8 [facility] Last Admin: 03/04/18 14:23 Dose: 650 mg Vitamin B Complex/Vit C/Folic Acid (Nephro-Vince) 1 tab PO 0800 [facility] Last Admin: 03/04/18 08:10 Dose: 1 tab - Labs Labs: 03/03/18 07:52 03/03/18 07:52 PT 11.4 SECONDS (9.7-12.2) 02/24/18 00:56 INR 1.0 02/24/18 00:56 APTT 33 SECONDS (21-34) 02/24/18 00:56 - Constitutional Appears: Well, Non-toxic, No Acute Distress - Head Exam Head Exam: ATRAUMATIC, NORMOCEPHALIC - Extremities Exam Additional comments: LE focused exam: VASC: DP/PT non-palpable b/l, temperature gradient warm to cool from proximal to distal b/l, Cap refill delayed to digits > 4 sec, no edema noted b/l. NEURO: Gross sensation intact, Protective sensation diminished DERM: Circular ulceration noted to the lateral aspect of 5th metatarsal base measuring approximately 0.5 cm in diameter with no depth. No drainage, No erythema, No fluctanance noted, No streaking. Ulcer is surrounded by hyperkeratotic area. No clinical signs of infection. MSK: Very minimal pain on palpating at site of ulceration. - Neurological Exam Neurological Exam: Alert, Awake, Oriented x3 Assessment and Plan - Assessment and Plan (Free Text) Assessment: 52 year old female with stable non-infected right foot ulceration Plan: Patient seen and evaluated Discussed plan with Dr. Mcmanus Labs, charts reviewed; Afebrile, absent leukocytosis Ulcer appears non-infected clinically at this time Ulcer dressed with betadine, DSD Stable from podiatry standpoint Will continue to follow up patient while in house
--- NOTE | 2018-03-04 19:17 | CP.PCM.PN ---
Subjective - Date & Time of Evaluation Date of Evaluation: 03/04/18 Time of Evaluation: 11:00 - Subjective Subjective: c/o pain at AVfistula no chest pain Objective - Vital Signs/Intake and Output Vital Signs (last 24 hours): Temp Pulse Resp BP Pulse Ox 98.5 F 86 18 138/73 94 L 03/04/18 07:00 03/04/18 16:00 03/04/18 07:00 03/04/18 17:55 03/04/18 07:00 - Medications Medications: Current Medications Albuterol (Ventolin Hfa 90 Mcg/Actuation (8 G)) 1 puff IH RQID PRN PRN Reason: Wheezing Last Admin: 03/01/18 07:30 Dose: 1 puff Amlodipine Besylate (Norvasc) 10 mg PO DAILY [facility] Last Admin: 03/04/18 10:10 Dose: 10 mg Aspirin (Ecotrin) 81 mg PO DAILY [facility] Last Admin: 03/04/18 10:08 Dose: 81 mg Carvedilol (Coreg) 12.5 mg PO BID [facility] Last Admin: 03/04/18 17:55 Dose: 12.5 mg Cyclobenzaprine HCl (Flexeril) 10 mg PO Q8 PRN PRN Reason: Muscle spasm Last Admin: 03/04/18 17:55 Dose: 10 mg Epoetin Tito (Procrit) 10,000 unit IV MWF [facility] Last Admin: 03/03/18 10:10 Dose: 10,000 unit Ferrous Sulfate (Feosol) 325 mg PO TID [facility] Last Admin: 03/04/18 17:55 Dose: 325 mg Gabapentin (Neurontin) 100 mg PO TID [facility] Last Admin: 03/04/18 17:55 Dose: 100 mg Hydralazine HCl (Apresoline) 25 mg PO Q8 [facility] Last Admin: 03/04/18 14:23 Dose: 25 mg Insulin Aspart (Novolog) 0 unit SC [facility]; Protocol Last Admin: 03/04/18 17:55 Dose: 6 units Insulin Glargine (Lantus) 24 unit SC [facility] Last Admin: 03/03/18 22:04 Dose: 24 units Pantoprazole Sodium (Protonix Ec Tab) 40 mg PO DAILY [facility] Last Admin: 03/04/18 10:10 Dose: 40 mg Rosuvastatin Calcium (Crestor) 5 mg PO [facility] Last Admin: 03/03/18 22:03 Dose: 5 mg Fluticasone/Salmeterol (Advair Diskus 500/50) 1 puff INH RQ12 [facility] Last Admin: 03/04/18 08:16 Dose: Not Given Sevelamer Carbonate (Renvela) 2.4 gm PO TIDCC [facility] Last Admin: 03/04/18 17:55 Dose: 2.4 gm Sodium Bicarbonate (Sodium Bicarbonate Tab) 650 mg PO Q8 [facility] Last Admin: 03/04/18 14:23 Dose: 650 mg Vitamin B Complex/Vit C/Folic Acid (Nephro-Vince) 1 tab PO 0800 [facility] Last Admin: 03/04/18 08:10 Dose: 1 tab - Labs Labs: 03/03/18 07:52 03/03/18 07:52 PT 11.4 SECONDS (9.7-12.2) 02/24/18 00:56 INR 1.0 02/24/18 00:56 APTT 33 SECONDS (21-34) 02/24/18 00:56 - Constitutional Appears: Non-toxic - Head Exam Head Exam: NORMAL INSPECTION - Eye Exam Eye Exam: absent: Scleral icterus - ENT Exam ENT Exam: Mucous Membranes Moist - Neck Exam Neck Exam: Full ROM - Respiratory Exam Respiratory Exam: NORMAL BREATHING PATTERN - Cardiovascular Exam Cardiovascular Exam: REGULAR RHYTHM - GI/Abdominal Exam GI & Abdominal Exam: absent: Soft - Extremities Exam Extremities Exam: absent: Pedal Edema Assessment and Plan - Assessment and Plan (Free Text) Assessment: ESRD CAD PVD T2dm Plan: Cont meds Hemodialysis
--- NOTE | 2018-03-04 19:22 | CP.PCM.PN ---
Subjective - Date & Time of Evaluation Date of Evaluation: 03/03/18 Time of Evaluation: 11:30 - Subjective Subjective: patient on dialysis weak Objective - Vital Signs/Intake and Output Vital Signs (last 24 hours): Temp Pulse Resp BP Pulse Ox 98.5 F 86 18 138/73 94 L 03/04/18 07:00 03/04/18 16:00 03/04/18 07:00 03/04/18 17:55 03/04/18 07:00 - Medications Medications: Current Medications Albuterol (Ventolin Hfa 90 Mcg/Actuation (8 G)) 1 puff IH RQID PRN PRN Reason: Wheezing Last Admin: 03/01/18 07:30 Dose: 1 puff Amlodipine Besylate (Norvasc) 10 mg PO DAILY [facility] Last Admin: 03/04/18 10:10 Dose: 10 mg Aspirin (Ecotrin) 81 mg PO DAILY [facility] Last Admin: 03/04/18 10:08 Dose: 81 mg Carvedilol (Coreg) 12.5 mg PO BID [facility] Last Admin: 03/04/18 17:55 Dose: 12.5 mg Cyclobenzaprine HCl (Flexeril) 10 mg PO Q8 PRN PRN Reason: Muscle spasm Last Admin: 03/04/18 17:55 Dose: 10 mg Epoetin Tito (Procrit) 10,000 unit IV MWF [facility] Last Admin: 03/03/18 10:10 Dose: 10,000 unit Ferrous Sulfate (Feosol) 325 mg PO TID [facility] Last Admin: 03/04/18 17:55 Dose: 325 mg Gabapentin (Neurontin) 100 mg PO TID [facility] Last Admin: 03/04/18 17:55 Dose: 100 mg Hydralazine HCl (Apresoline) 25 mg PO Q8 [facility] Last Admin: 03/04/18 14:23 Dose: 25 mg Insulin Aspart (Novolog) 0 unit SC [facility]; Protocol Last Admin: 03/04/18 17:55 Dose: 6 units Insulin Glargine (Lantus) 24 unit SC [facility] Last Admin: 03/03/18 22:04 Dose: 24 units Pantoprazole Sodium (Protonix Ec Tab) 40 mg PO DAILY [facility] Last Admin: 03/04/18 10:10 Dose: 40 mg Rosuvastatin Calcium (Crestor) 5 mg PO [facility] Last Admin: 03/03/18 22:03 Dose: 5 mg Fluticasone/Salmeterol (Advair Diskus 500/50) 1 puff INH RQ12 [facility] Last Admin: 03/04/18 08:16 Dose: Not Given Sevelamer Carbonate (Renvela) 2.4 gm PO TIDCC [facility] Last Admin: 03/04/18 17:55 Dose: 2.4 gm Sodium Bicarbonate (Sodium Bicarbonate Tab) 650 mg PO Q8 [facility] Last Admin: 03/04/18 14:23 Dose: 650 mg Vitamin B Complex/Vit C/Folic Acid (Nephro-Vince) 1 tab PO 0800 [facility] Last Admin: 03/04/18 08:10 Dose: 1 tab - Labs Labs: 03/03/18 07:52 03/03/18 07:52 PT 11.4 SECONDS (9.7-12.2) 02/24/18 00:56 INR 1.0 02/24/18 00:56 APTT 33 SECONDS (21-34) 02/24/18 00:56 - Constitutional Appears: Non-toxic - Head Exam Head Exam: NORMAL INSPECTION - Eye Exam Eye Exam: absent: Scleral icterus - Neck Exam Neck Exam: Full ROM - Respiratory Exam Respiratory Exam: NORMAL BREATHING PATTERN - GI/Abdominal Exam GI & Abdominal Exam: Soft - Extremities Exam Extremities Exam: absent: Pedal Edema Additional comments: non-healing ulcer - Neurological Exam Neurological Exam: Alert, Oriented x3 Assessment and Plan - Assessment and Plan (Free Text) Assessment: ESRD CAD PVD T2dm Non-healing ulcer of foot Anemia Plan: Cont hemodialysis Vasc w/u
--- NOTE | 2018-03-04 19:29 | CP.PCM.PN ---
Subjective - Date & Time of Evaluation Date of Evaluation: 03/02/18 Time of Evaluation: 08:00 - Subjective Subjective: weak anemic on procrit Objective - Vital Signs/Intake and Output Vital Signs (last 24 hours): Temp Pulse Resp BP Pulse Ox 98.5 F 86 18 138/73 94 L 03/04/18 07:00 03/04/18 16:00 03/04/18 07:00 03/04/18 17:55 03/04/18 07:00 - Medications Medications: Current Medications Albuterol (Ventolin Hfa 90 Mcg/Actuation (8 G)) 1 puff IH RQID PRN PRN Reason: Wheezing Last Admin: 03/01/18 07:30 Dose: 1 puff Amlodipine Besylate (Norvasc) 10 mg PO DAILY [facility] Last Admin: 03/04/18 10:10 Dose: 10 mg Aspirin (Ecotrin) 81 mg PO DAILY [facility] Last Admin: 03/04/18 10:08 Dose: 81 mg Carvedilol (Coreg) 12.5 mg PO BID [facility] Last Admin: 03/04/18 17:55 Dose: 12.5 mg Cyclobenzaprine HCl (Flexeril) 10 mg PO Q8 PRN PRN Reason: Muscle spasm Last Admin: 03/04/18 17:55 Dose: 10 mg Epoetin Tito (Procrit) 10,000 unit IV MWF [facility] Last Admin: 03/03/18 10:10 Dose: 10,000 unit Ferrous Sulfate (Feosol) 325 mg PO TID [facility] Last Admin: 03/04/18 17:55 Dose: 325 mg Gabapentin (Neurontin) 100 mg PO TID [facility] Last Admin: 03/04/18 17:55 Dose: 100 mg Hydralazine HCl (Apresoline) 25 mg PO Q8 [facility] Last Admin: 03/04/18 14:23 Dose: 25 mg Insulin Aspart (Novolog) 0 unit SC [facility]; Protocol Last Admin: 03/04/18 17:55 Dose: 6 units Insulin Glargine (Lantus) [address] [facility] Last Admin: 03/03/18 22:04 Dose: 24 units Pantoprazole Sodium (Protonix Ec Tab) 40 mg PO DAILY [facility] Last Admin: 03/04/18 10:10 Dose: 40 mg Rosuvastatin Calcium (Crestor) [address] [facility] Last Admin: 03/03/18 22:03 Dose: 5 mg Fluticasone/Salmeterol (Advair Diskus 500/50) 1 puff INH RQ12 [facility] Last Admin: 03/04/18 08:16 Dose: Not Given Sevelamer Carbonate (Renvela) 2.4 gm PO TIDCC [facility] Last Admin: 03/04/18 17:55 Dose: 2.4 gm Sodium Bicarbonate (Sodium Bicarbonate Tab) 650 mg PO Q8 [facility] Last Admin: 03/04/18 14:23 Dose: 650 mg Vitamin B Complex/Vit C/Folic Acid (Nephro-Vince) 1 tab PO 0800 [facility] Last Admin: 03/04/18 08:10 Dose: 1 tab - Labs Labs: 03/03/18 07:52 03/03/18 07:52 PT 11.4 SECONDS (9.7-12.2) 02/24/18 00:56 INR 1.0 02/24/18 00:56 APTT 33 SECONDS (21-34) 02/24/18 00:56 - Constitutional Appears: Chronically Ill - Head Exam Head Exam: NORMAL INSPECTION - Eye Exam Eye Exam: absent: Scleral icterus - Neck Exam Neck Exam: Full ROM - Respiratory Exam Respiratory Exam: Decreased Breath Sounds - Cardiovascular Exam Cardiovascular Exam: REGULAR RHYTHM - GI/Abdominal Exam GI & Abdominal Exam: Soft - Extremities Exam Extremities Exam: absent: Pedal Edema - Neurological Exam Neurological Exam: Alert, Oriented x3 Assessment and Plan - Assessment and Plan (Free Text) Assessment: ESRD CAD PVD T2dm Anemia Plan: Cont dialysis transfusion as needed Cont meds
[2018-03-04] MEDS: (Lantus) Insulin Glargine, Recombinant SC SCH (22:17)
[2018-03-05] MEDS: Fluticasone-Salmeterol 500-50mcg Diskus INH SCH ×2 (07:40→19:49)
[2018-03-05] MEDS: Albuterol HFA 90 mcg/actuation (8 g) IH PRN ×2 (07:41→19:49)
[2018-03-05 08:09] LABS: CALCIUM 8.6 mg/dl (8.6-10.4)
[2018-03-05] MEDS: Multivitamin Vitamin B Complex (Nephro-Vite) Tab PO SCH (08:40)
[2018-03-05] MEDS: (Novolog) Insulin Aspart, Recombinant 100 u/ml 10 ml vial SC SCH ×4 (08:40→21:17)
[2018-03-05] MEDS: Sevelamer Carb 2.4 gm/Packet PO SCH ×3 (09:00→17:01)
[2018-03-05] MEDS: Pantoprazole 40 mg EC Tab PO SCH (09:48)
--- NOTE | 2018-03-05 15:03 | CP.PCM.PN ---
Subjective - Date & Time of Evaluation Date of Evaluation: 03/05/18 Time of Evaluation: 09:00 - Subjective Subjective: afeb awaiting placement Objective - Vital Signs/Intake and Output Vital Signs (last 24 hours): Temp Pulse Resp BP Pulse Ox 98.3 F 94 H 18 176/76 H 97 03/05/18 07:00 03/05/18 07:51 03/05/18 07:00 03/05/18 09:49 03/05/18 07:00 Intake and Output: 03/05/18 03/05/18 06:59 18:59 Intake Total 480 Balance 480 - Medications Medications: Current Medications Albuterol (Ventolin Hfa 90 Mcg/Actuation (8 G)) 1 puff IH RQID PRN PRN Reason: Wheezing Last Admin: 03/05/18 07:41 Dose: 1 puff Amlodipine Besylate (Norvasc) 10 mg PO DAILY [facility] Last Admin: 03/05/18 09:50 Dose: 10 mg Aspirin (Ecotrin) 81 mg PO DAILY [facility] Last Admin: 03/05/18 09:50 Dose: 81 mg Carvedilol (Coreg) 12.5 mg PO BID [facility] Last Admin: 03/05/18 09:49 Dose: 12.5 mg Cyclobenzaprine HCl (Flexeril) 10 mg PO Q8 PRN PRN Reason: Muscle spasm Epoetin Tito (Procrit) 10,000 unit IV MWF [facility] Last Admin: 03/03/18 10:10 Dose: 10,000 unit Ferrous Sulfate (Feosol) 325 mg PO TID [facility] Last Admin: 03/05/18 09:49 Dose: 325 mg Gabapentin (Neurontin) 100 mg PO TID [facility] Last Admin: 03/05/18 09:50 Dose: 100 mg Hydralazine HCl (Apresoline) 25 mg PO Q8 [facility] Last Admin: 03/05/18 05:43 Dose: 25 mg Insulin Aspart (Novolog) 0 unit SC [facility]; Protocol Last Admin: 03/05/18 12:30 Dose: 4 units Insulin Glargine (Lantus) 24 unit SC HS [facility] Last Admin: 03/04/18 22:17 Dose: 24 units Pantoprazole Sodium (Protonix Ec Tab) 40 mg PO DAILY [facility] Last Admin: 03/05/18 09:48 Dose: 40 mg Rosuvastatin Calcium (Crestor) 5 mg PO HS [facility] Last Admin: 03/04/18 22:17 Dose: 5 mg Fluticasone/Salmeterol (Advair Diskus 500/50) 1 puff INH RQ12 [facility] Last Admin: 03/05/18 07:40 Dose: 1 puff Sevelamer Carbonate (Renvela) 2.4 gm PO TIDCC [facility] Last Admin: 03/05/18 12:56 Dose: 2.4 gm Sodium Bicarbonate (Sodium Bicarbonate Tab) 650 mg PO Q8 [facility] Last Admin: 03/05/18 05:43 Dose: 650 mg Vitamin B Complex/Vit C/Folic Acid (Nephro-Vince) 1 tab PO 0800 [facility] Last Admin: 03/05/18 08:40 Dose: 1 tab - Labs Labs: 03/03/18 07:52 03/05/18 07:23 PT 11.4 SECONDS (9.7-12.2) 02/24/18 00:56 INR 1.0 02/24/18 00:56 APTT 33 SECONDS (21-34) 02/24/18 00:56 - Constitutional Appears: Non-toxic, Chronically Ill - Head Exam Head Exam: NORMOCEPHALIC - Eye Exam Eye Exam: PERRL - ENT Exam ENT Exam: Normal External Ear Exam - Neck Exam Neck Exam: absent: Lymphadenopathy - Respiratory Exam Respiratory Exam: Decreased Breath Sounds - Cardiovascular Exam Cardiovascular Exam: REGULAR RHYTHM - GI/Abdominal Exam GI & Abdominal Exam: Distended, Soft Assessment and Plan (1) BLAYNE (acute kidney injury) Status: Acute (2) Hypertension Status: Chronic (3) CKD (chronic kidney disease) Status: Acute (4) Diabetes mellitus Status: Acute (5) Non-healing ulcer of foot Status: Acute (6) PVD (peripheral vascular disease) Status: Acute (7) Renal insufficiency Status: Acute (8) Diabetes mellitus type 2 in nonobese Status: Chronic
[2018-03-05] MEDS: (Lantus) Insulin Glargine, Recombinant SC SCH (21:41)
[2018-03-06 07:47] LABS: CALCIUM 8.5 mg/dl (8.6-10.4)
[2018-03-06] MEDS: Fluticasone-Salmeterol 500-50mcg Diskus INH SCH (08:21)
[2018-03-06] MEDS: Albuterol HFA 90 mcg/actuation (8 g) IH PRN ×2 (08:22→19:51)
[2018-03-06] MEDS ORDERED: Fluticasone-Vilanterol 200/25mcg Diskus INH SCH (08:30)
[2018-03-06] MEDS: Multivitamin Vitamin B Complex (Nephro-Vite) Tab PO SCH (08:40)
[2018-03-06] MEDS: (Novolog) Insulin Aspart, Recombinant 100 u/ml 10 ml vial SC SCH ×4 (08:40→22:54)
[2018-03-06] MEDS: Sevelamer Carb 2.4 gm/Packet PO SCH ×3 (08:40→18:00)
[2018-03-06] MEDS ORDERED: Fluticasone-Salmeterol 500-50mcg Diskus INH SCH (08:45)
--- NOTE | 2018-03-06 10:32 | CP.PCM.PN ---
Subjective - Date & Time of Evaluation Date of Evaluation: 03/06/18 Time of Evaluation: 10:31 - Subjective Subjective: pt is seen and examined, c/o sob and b/l leg edema,no chest pain, grossman+ Objective - Vital Signs/Intake and Output Vital Signs (last 24 hours): Temp Pulse Resp BP Pulse Ox 97.8 F 96 H 20 135/69 93 L 03/06/18 07:05 03/06/18 07:05 03/06/18 07:05 03/06/18 07:05 03/06/18 07:05 Intake and Output: 03/06/18 03/06/18 06:59 18:59 Intake Total 400 Balance 400 - Medications Medications: Current Medications Albuterol (Ventolin Hfa 90 Mcg/Actuation (8 G)) 1 puff IH RQID PRN PRN Reason: Wheezing Last Admin: 03/06/18 08:22 Dose: 1 puff Amlodipine Besylate (Norvasc) 10 mg PO DAILY [facility] Last Admin: 03/05/18 09:50 Dose: 10 mg Aspirin (Ecotrin) 81 mg PO DAILY [facility] Last Admin: 03/05/18 09:50 Dose: 81 mg Carvedilol (Coreg) 12.5 mg PO BID [facility] Last Admin: 03/05/18 18:01 Dose: 12.5 mg Cyclobenzaprine HCl (Flexeril) 10 mg PO Q8 PRN PRN Reason: Muscle spasm Epoetin Tito (Procrit) 10,000 unit IV MWF [facility] Last Admin: 03/03/18 10:10 Dose: 10,000 unit Ferrous Sulfate (Feosol) 325 mg PO TID [facility] Last Admin: 03/05/18 18:01 Dose: 325 mg Gabapentin (Neurontin) 100 mg PO TID [facility] Last Admin: 03/05/18 18:01 Dose: 100 mg Hydralazine HCl (Apresoline) 25 mg PO Q8 [facility] Last Admin: 03/06/18 05:34 Dose: 25 mg Insulin Aspart (Novolog) 0 unit SC [facility]; Protocol Last Admin: 03/06/18 08:40 Dose: 8 units Insulin Glargine (Lantus) 24 unit SC HS [facility] Last Admin: 03/05/18 21:41 Dose: 24 units Pantoprazole Sodium (Protonix Ec Tab) 40 mg PO DAILY [facility] Last Admin: 03/05/18 09:48 Dose: 40 mg Rosuvastatin Calcium (Crestor) 5 mg PO HS [facility] Last Admin: 03/05/18 21:41 Dose: 5 mg Fluticasone/Salmeterol (Advair Diskus 500/50) 1 puff INH RQ12 [facility] Sevelamer Carbonate (Renvela) 2.4 gm PO TIDCC [facility] Last Admin: 03/06/18 08:40 Dose: 2.4 gm Sodium Bicarbonate (Sodium Bicarbonate Tab) 650 mg PO Q8 [facility] Last Admin: 03/06/18 05:34 Dose: 650 mg Vitamin B Complex/Vit C/Folic Acid (Nephro-Vince) 1 tab PO 0800 [facility] Last Admin: 03/06/18 08:40 Dose: 1 tab - Labs Labs: 03/03/18 07:52 03/06/18 07:14 PT 11.4 SECONDS (9.7-12.2) 02/24/18 00:56 INR 1.0 02/24/18 00:56 APTT 33 SECONDS (21-34) 02/24/18 00:56 - Constitutional Appears: Well, Non-toxic, No Acute Distress - Head Exam Head Exam: ATRAUMATIC, NORMAL INSPECTION, NORMOCEPHALIC - Eye Exam Eye Exam: EOMI, Normal appearance, PERRL Pupil Exam: NORMAL ACCOMODATION Additional comments: poor vision b/l - ENT Exam ENT Exam: Mucous Membranes Moist, Normal Exam - Neck Exam Neck Exam: Full ROM, Normal Inspection - Respiratory Exam Respiratory Exam: Clear to Ausculation Bilateral, NORMAL BREATHING PATTERN - Cardiovascular Exam Cardiovascular Exam: REGULAR RHYTHM, +S1, +S2 - GI/Abdominal Exam GI & Abdominal Exam: Soft, Normal Bowel Sounds - Extremities Exam Extremities Exam: Full ROM Additional comments: dressing to rt foot+, b/l LE edema 2+ - Neurological Exam Neurological Exam: Alert, Awake, CN II-XII Intact, Oriented x3 - Skin Skin Exam: Normal Color, Warm Assessment and Plan - Assessment and Plan (Free Text) Plan: 52 yo GF with pmh/o htn, dm, hld, cads/p cabg, rt foot ulcer, nephrotic range proteinuria, with worsening renal function started on hD last week tuesday 1. BLAYNE on CKD-4 2. Anmeia sec to ckd and / or fe deficiency 3. HTN 4. DM 5. Fluid over load will continue hd today and 3 x a week, MWF, check bmp in am restrict fluids to 1 lit/day add lasix 40 mg po bid c/w current meds, coreg, hydralazine, amlodipine, epogen, zemplar
[2018-03-06] MEDS ORDERED: Paricalcitol 2 mcg/ml Inj IV ONE ×2 (10:47→14:00)
[2018-03-06] MEDS: Pantoprazole 40 mg EC Tab PO SCH (10:52)
--- NOTE | 2018-03-06 12:43 | CP.PCM.PN ---
Subjective - Date & Time of Evaluation Date of Evaluation: 03/06/18 Time of Evaluation: 08:00 - Subjective Subjective: c/o pain in NAD Objective - Vital Signs/Intake and Output Vital Signs (last 24 hours): Temp Pulse Resp BP Pulse Ox 97.6 F 102 H 16 149/76 100 03/06/18 11:20 03/06/18 11:20 03/06/18 11:20 03/06/18 11:20 03/06/18 11:20 Intake and Output: 03/06/18 03/06/18 06:59 18:59 Intake Total 400 Balance 400 - Medications Medications: Current Medications Albuterol (Ventolin Hfa 90 Mcg/Actuation (8 G)) 1 puff IH RQID PRN PRN Reason: Wheezing Last Admin: 03/06/18 08:22 Dose: 1 puff Amlodipine Besylate (Norvasc) 10 mg PO DAILY [facility] Last Admin: 03/06/18 10:54 Dose: 10 mg Aspirin (Ecotrin) 81 mg PO DAILY [facility] Last Admin: 03/05/18 09:50 Dose: 81 mg Carvedilol (Coreg) 12.5 mg PO BID [facility] Last Admin: 03/06/18 10:54 Dose: 12.5 mg Cyclobenzaprine HCl (Flexeril) 10 mg PO Q8 PRN PRN Reason: Muscle spasm Epoetin Tito (Procrit) 10,000 unit IV MWF [facility] Last Admin: 03/03/18 10:10 Dose: 10,000 unit Ferrous Sulfate (Feosol) 325 mg PO TID [facility] Last Admin: 03/06/18 10:53 Dose: 325 mg Gabapentin (Neurontin) 100 mg PO TID [facility] Last Admin: 03/06/18 10:52 Dose: 100 mg Hydralazine HCl (Apresoline) 25 mg PO Q8 [facility] Last Admin: 03/06/18 05:34 Dose: 25 mg Insulin Aspart (Novolog) 0 unit SC [facility]; Protocol Last Admin: 03/06/18 08:40 Dose: 8 units Insulin Glargine (Lantus) 24 unit SC HS [facility] Last Admin: 03/05/18 21:41 Dose: 24 units Pantoprazole Sodium (Protonix Ec Tab) 40 mg PO DAILY [facility] Last Admin: 03/06/18 10:52 Dose: 40 mg Rosuvastatin Calcium (Crestor) 5 mg PO HS [facility] Last Admin: 03/05/18 21:41 Dose: 5 mg Fluticasone/Salmeterol (Advair Diskus 500/50) 1 puff INH RQ12 [facility] Sevelamer Carbonate (Renvela) 2.4 gm PO TIDCC [facility] Last Admin: 03/06/18 08:40 Dose: 2.4 gm Sodium Bicarbonate (Sodium Bicarbonate Tab) 650 mg PO Q8 [facility] Last Admin: 03/06/18 05:34 Dose: 650 mg Vitamin B Complex/Vit C/Folic Acid (Nephro-Vince) 1 tab PO 0800 [facility] Last Admin: 03/06/18 08:40 Dose: 1 tab - Labs Labs: 03/03/18 07:52 03/06/18 07:14 PT 11.4 SECONDS (9.7-12.2) 02/24/18 00:56 INR 1.0 02/24/18 00:56 APTT 33 SECONDS (21-34) 02/24/18 00:56 - Constitutional Appears: Non-toxic, Chronically Ill - Head Exam Head Exam: NORMOCEPHALIC - Eye Exam Eye Exam: PERRL - ENT Exam ENT Exam: Mucous Membranes Dry - Neck Exam Neck Exam: absent: Lymphadenopathy - Respiratory Exam Respiratory Exam: Decreased Breath Sounds - Cardiovascular Exam Cardiovascular Exam: REGULAR RHYTHM, +S1, +S2 - GI/Abdominal Exam GI & Abdominal Exam: Distended - Rectal Exam Rectal Exam: Deferred - Exam Exam: NORMAL INSPECTION Assessment and Plan (1) BLAYNE (acute kidney injury) Status: Acute (2) Hypertension Status: Chronic (3) CKD (chronic kidney disease) Status: Acute (4) Diabetes mellitus Status: Acute (5) Non-healing ulcer of foot Status: Acute (6) PVD (peripheral vascular disease) Status: Acute (7) Renal insufficiency Status: Acute (8) Diabetes mellitus type 2 in nonobese Status: Chronic - Assessment and Plan (Free Text) Assessment: await placement
[2018-03-06] MEDS: Epoetin Alfa 10,000 unit/ml Dialysis IV SCH (14:02)
[2018-03-06] MEDS: (Lantus) Insulin Glargine, Recombinant SC SCH (22:53)
[2018-03-07] MEDS: Multivitamin Vitamin B Complex (Nephro-Vite) Tab PO SCH (08:30)
[2018-03-07] MEDS: Sevelamer Carb 2.4 gm/Packet PO SCH ×3 (08:30→17:15)
[2018-03-07 08:36] LABS: CALCIUM 8.5 mg/dl (8.6-10.4)
[2018-03-07] MEDS: (Novolog) Insulin Aspart, Recombinant 100 u/ml 10 ml vial SC SCH ×4 (08:39→21:09)
[2018-03-07] MEDS: Pantoprazole 40 mg EC Tab PO SCH (10:30)
--- NOTE | 2018-03-07 10:39 | CP.PCM.PN ---
Subjective - Date & Time of Evaluation Date of Evaluation: 03/07/18 Time of Evaluation: 10:39 - Subjective Subjective: pt is seen and examined, s/p hd yeterday, had a uf about 3 lit, feeling batter, less sob, no cp, + edema of legs Objective - Vital Signs/Intake and Output Vital Signs (last 24 hours): Temp Pulse Resp BP Pulse Ox 98.2 F 88 20 133/79 94 L 03/07/18 07:00 03/07/18 07:00 03/07/18 07:00 03/07/18 10:28 03/07/18 07:00 - Medications Medications: Current Medications Albuterol (Ventolin Hfa 90 Mcg/Actuation (8 G)) 1 puff IH RQID PRN PRN Reason: Wheezing Last Admin: 03/06/18 19:51 Dose: 1 puff Amlodipine Besylate (Norvasc) 10 mg PO DAILY [facility] Last Admin: 03/07/18 10:29 Dose: 10 mg Aspirin (Ecotrin) 81 mg PO DAILY [facility] Last Admin: 03/07/18 10:29 Dose: 81 mg Carvedilol (Coreg) 12.5 mg PO BID [facility] Last Admin: 03/07/18 10:28 Dose: 12.5 mg Cyclobenzaprine HCl (Flexeril) 10 mg PO Q8 PRN PRN Reason: Muscle spasm Epoetin Tito (Procrit) 10,000 unit IV MWF [facility] Last Admin: 03/06/18 14:02 Dose: 10,000 unit Ferrous Sulfate (Feosol) 325 mg PO TID [facility] Last Admin: 03/07/18 10:31 Dose: 325 mg Gabapentin (Neurontin) 100 mg PO TID [facility] Last Admin: 03/07/18 10:30 Dose: 100 mg Hydralazine HCl (Apresoline) 25 mg PO Q8 [facility] Last Admin: 03/07/18 06:01 Dose: 25 mg Insulin Aspart (Novolog) 0 unit SC [facility]; Protocol Last Admin: 03/07/18 08:39 Dose: 2 units Insulin Glargine (Lantus) 24 unit SC HS [facility] Last Admin: 03/06/18 22:53 Dose: 24 units Pantoprazole Sodium (Protonix Ec Tab) 40 mg PO DAILY [facility] Last Admin: 03/07/18 10:30 Dose: 40 mg Rosuvastatin Calcium (Crestor) 5 mg PO HS [facility] Last Admin: 03/06/18 22:09 Dose: 5 mg Fluticasone/Salmeterol (Advair Diskus 500/50) 1 puff INH RQ12 [facility] Last Admin: 03/06/18 19:52 Dose: 1 puff Sevelamer Carbonate (Renvela) 2.4 gm PO TIDCC [facility] Last Admin: 03/07/18 08:30 Dose: 2.4 gm Sodium Bicarbonate (Sodium Bicarbonate Tab) 650 mg PO Q8 [facility] Last Admin: 03/07/18 06:01 Dose: 650 mg Vitamin B Complex/Vit C/Folic Acid (Nephro-Vince) 1 tab PO 0800 [facility] Last Admin: 03/07/18 08:30 Dose: 1 tab - Labs Labs: 03/03/18 07:52 03/07/18 07:50 PT 11.4 SECONDS (9.7-12.2) 02/24/18 00:56 INR 1.0 02/24/18 00:56 APTT 33 SECONDS (21-34) 02/24/18 00:56 - Head Exam Head Exam: ATRAUMATIC, NORMAL INSPECTION, NORMOCEPHALIC - Eye Exam Eye Exam: EOMI, Normal appearance, PERRL Pupil Exam: NORMAL ACCOMODATION Additional comments: poor vision b/l - ENT Exam ENT Exam: Mucous Membranes Moist - Neck Exam Neck Exam: Full ROM, Normal Inspection - Respiratory Exam Respiratory Exam: Clear to Ausculation Bilateral, NORMAL BREATHING PATTERN - Cardiovascular Exam Cardiovascular Exam: REGULAR RHYTHM, RRR, +S1, +S2 - GI/Abdominal Exam GI & Abdominal Exam: Soft, Normal Bowel Sounds - Rectal Exam Rectal Exam: NORMAL INSPECTION - Extremities Exam Extremities Exam: Full ROM Additional comments: xressing to rt foot+, 2+ edema - Back Exam Back Exam: NORMAL INSPECTION - Neurological Exam Neurological Exam: Alert, Awake, CN II-XII Intact, Oriented x3 - Psychiatric Exam Psychiatric exam: Normal Affect, Normal Mood - Skin Skin Exam: Dry, Normal Color Assessment and Plan - Assessment and Plan (Free Text) Assessment: 52 yo GF with pmh/o htn, dm, hld, cads/p cabg, rt foot ulcer, nephrotic range proteinuria, with worsening renal function started on hD last week tuesday 1. BLAYNE on CKD-4 vs progression to ESRD 2. Anmeia sec to ckd and / or fe deficiency 3. HTN 4. DM 5. Fluid over load will continue hd 3 x a week, MWF, restrict fluids to 1 lit/day add lasix 40 mg po bid c/w current meds, coreg, hydralazine, amlodipine, epogen, zemplar f/u with social service for reactivation of insurance and for out pt hd unit placement
--- NOTE | 2018-03-07 12:57 | CP.PCM.PN ---
Subjective - Date & Time of Evaluation Date of Evaluation: 03/07/18 Time of Evaluation: 09:00 - Subjective Subjective: improving on HD Objective - Vital Signs/Intake and Output Vital Signs (last 24 hours): Temp Pulse Resp BP Pulse Ox 98.2 F 88 20 133/79 94 L 03/07/18 07:00 03/07/18 07:00 03/07/18 07:00 03/07/18 10:28 03/07/18 07:00 - Medications Medications: Current Medications Albuterol (Ventolin Hfa 90 Mcg/Actuation (8 G)) 1 puff IH RQID PRN PRN Reason: Wheezing Last Admin: 03/06/18 19:51 Dose: 1 puff Amlodipine Besylate (Norvasc) 10 mg PO DAILY [facility] Last Admin: 03/07/18 10:29 Dose: 10 mg Aspirin (Ecotrin) 81 mg PO DAILY [facility] Last Admin: 03/07/18 10:29 Dose: 81 mg Carvedilol (Coreg) 12.5 mg PO BID [facility] Last Admin: 03/07/18 10:28 Dose: 12.5 mg Cyclobenzaprine HCl (Flexeril) 10 mg PO Q8 PRN PRN Reason: Muscle spasm Epoetin Tito (Procrit) 10,000 unit IV MWF [facility] Last Admin: 03/06/18 14:02 Dose: 10,000 unit Ferrous Sulfate (Feosol) 325 mg PO TID [facility] Last Admin: 03/07/18 10:31 Dose: 325 mg Fluticasone/Vilanterol (Breo Ellipta 200-25 Mcg Inh) 1 puff INH RQD [facility] Gabapentin (Neurontin) 100 mg PO TID [facility] Last Admin: 03/07/18 10:30 Dose: 100 mg Hydralazine HCl (Apresoline) 25 mg PO Q8 [facility] Last Admin: 03/07/18 06:01 Dose: 25 mg Insulin Aspart (Novolog) 0 unit SC ACHS [facility]; Protocol Last Admin: 03/07/18 12:01 Dose: 6 units Insulin Glargine (Lantus) 24 unit SC HS [facility] Last Admin: 03/06/18 22:53 Dose: 24 units Pantoprazole Sodium (Protonix Ec Tab) 40 mg PO DAILY [facility] Last Admin: 03/07/18 10:30 Dose: 40 mg Rosuvastatin Calcium (Crestor) 5 mg PO HS [facility] Last Admin: 03/06/18 22:09 Dose: 5 mg Sevelamer Carbonate (Renvela) 2.4 gm PO TIDCC [facility] Last Admin: 03/07/18 08:30 Dose: 2.4 gm Sodium Bicarbonate (Sodium Bicarbonate Tab) 650 mg PO Q8 [facility] Last Admin: 03/07/18 06:01 Dose: 650 mg Vitamin B Complex/Vit C/Folic Acid (Nephro-Vince) 1 tab PO 0800 [facility] Last Admin: 03/07/18 08:30 Dose: 1 tab - Labs Labs: 03/03/18 07:52 03/07/18 07:50 PT 11.4 SECONDS (9.7-12.2) 02/24/18 00:56 INR 1.0 02/24/18 00:56 APTT 33 SECONDS (21-34) 02/24/18 00:56 - Constitutional Appears: Non-toxic, Chronically Ill - Head Exam Head Exam: NORMOCEPHALIC - Eye Exam Eye Exam: PERRL - ENT Exam ENT Exam: Mucous Membranes Dry - Neck Exam Neck Exam: absent: Lymphadenopathy - Respiratory Exam Respiratory Exam: Decreased Breath Sounds - Cardiovascular Exam Cardiovascular Exam: REGULAR RHYTHM - GI/Abdominal Exam GI & Abdominal Exam: Distended, Soft Assessment and Plan (1) BLAYNE (acute kidney injury) Status: Acute (2) Hypertension Status: Chronic (3) CKD (chronic kidney disease) Status: Acute (4) Diabetes mellitus Status: Acute (5) Non-healing ulcer of foot Status: Acute (6) PVD (peripheral vascular disease) Status: Acute (7) Renal insufficiency Status: Acute (8) Diabetes mellitus type 2 in nonobese Status: Chronic - Assessment and Plan (Free Text) Assessment: restrict fluids to 1 lit/day add lasix 40 mg po bid c/w current meds, coreg, hydralazine, amlodipine, epogen, zemplar
[2018-03-07] MEDS: Albuterol HFA 90 mcg/actuation (8 g) IH PRN (16:09)
--- NOTE | 2018-03-07 19:57 | CP.PCM.PN ---
Subjective - Date & Time of Evaluation Date of Evaluation: 03/04/18 Time of Evaluation: 12:00 - Subjective Subjective: Feels tired. Objective - Vital Signs/Intake and Output Vital Signs (last 24 hours): Temp Pulse Resp BP Pulse Ox 98.1 F 81 20 133/69 93 L 03/07/18 15:52 03/07/18 15:52 03/07/18 15:52 03/07/18 17:14 03/07/18 15:52 - Medications Medications: Current Medications Albuterol (Ventolin Hfa 90 Mcg/Actuation (8 G)) 1 puff IH RQID PRN PRN Reason: Wheezing Last Admin: 03/07/18 16:09 Dose: 1 puff Amlodipine Besylate (Norvasc) 10 mg PO DAILY [facility] Last Admin: 03/07/18 10:29 Dose: 10 mg Aspirin (Ecotrin) 81 mg PO DAILY [facility] Last Admin: 03/07/18 10:29 Dose: 81 mg Carvedilol (Coreg) 12.5 mg PO BID [facility] Last Admin: 03/07/18 17:14 Dose: 12.5 mg Cyclobenzaprine HCl (Flexeril) 10 mg PO Q8 PRN PRN Reason: Muscle spasm Epoetin Tito (Procrit) 10,000 unit IV MWF [facility] Last Admin: 03/06/18 14:02 Dose: 10,000 unit Ferrous Sulfate (Feosol) 325 mg PO TID [facility] Last Admin: 03/07/18 17:14 Dose: 325 mg Fluticasone/Vilanterol (Breo Ellipta 200-25 Mcg Inh) 1 puff INH RQD [facility] Gabapentin (Neurontin) 100 mg PO TID [facility] Last Admin: 03/07/18 17:14 Dose: 100 mg Hydralazine HCl (Apresoline) 25 mg PO Q8 [facility] Last Admin: 03/07/18 14:47 Dose: 25 mg Insulin Aspart (Novolog) 0 unit SC A[facility]S [facility]; Protocol Last Admin: 03/07/18 17:15 Dose: 10 units Insulin Glargine (Lantus) 24 unit SC HS [facility] Last Admin: 03/06/18 22:53 Dose: 24 units Pantoprazole Sodium (Protonix Ec Tab) 40 mg PO DAILY [facility] Last Admin: 03/07/18 10:30 Dose: 40 mg Rosuvastatin Calcium (Crestor) 5 mg PO HS [facility] Last Admin: 03/06/18 22:09 Dose: 5 mg Sevelamer Carbonate (Renvela) 2.4 gm PO TIDCC [facility] Last Admin: 03/07/18 17:15 Dose: 2.4 gm Sodium Bicarbonate (Sodium Bicarbonate Tab) 650 mg PO Q8 [facility] Last Admin: 03/07/18 14:51 Dose: 650 mg Vitamin B Complex/Vit C/Folic Acid (Nephro-Vince) 1 tab PO 0800 [facility] Last Admin: 03/07/18 08:30 Dose: 1 tab - Labs Labs: 03/03/18 07:52 03/07/18 07:50 PT 11.4 SECONDS (9.7-12.2) 02/24/18 00:56 INR 1.0 02/24/18 00:56 APTT 33 SECONDS (21-34) 02/24/18 00:56 - Head Exam Head Exam: ATRAUMATIC - Eye Exam Eye Exam: Normal appearance - ENT Exam ENT Exam: Mucous Membranes Dry - Respiratory Exam Respiratory Exam: NORMAL BREATHING PATTERN - Cardiovascular Exam Cardiovascular Exam: +S1, +S2 - GI/Abdominal Exam GI & Abdominal Exam: Normal Bowel Sounds Assessment and Plan (1) Anemia Assessment & Plan: anemia of CKD and chronic disease on EPO per renal transfusion support PRN outpatient screening colonoscopy Status: Acute
--- NOTE | 2018-03-07 19:58 | CP.PCM.PN ---
Subjective - Date & Time of Evaluation Date of Evaluation: 03/05/18 Time of Evaluation: 13:00 - Subjective Subjective: Feels tired. Objective - Vital Signs/Intake and Output Vital Signs (last 24 hours): Temp Pulse Resp BP Pulse Ox 98.1 F 81 20 133/69 93 L 03/07/18 15:52 03/07/18 15:52 03/07/18 15:52 03/07/18 17:14 03/07/18 15:52 - Medications Medications: Current Medications Albuterol (Ventolin Hfa 90 Mcg/Actuation (8 G)) 1 puff IH RQID PRN PRN Reason: Wheezing Last Admin: 03/07/18 16:09 Dose: 1 puff Amlodipine Besylate (Norvasc) 10 mg PO DAILY [facility] Last Admin: 03/07/18 10:29 Dose: 10 mg Aspirin (Ecotrin) 81 mg PO DAILY [facility] Last Admin: 03/07/18 10:29 Dose: 81 mg Carvedilol (Coreg) 12.5 mg PO BID [facility] Last Admin: 03/07/18 17:14 Dose: 12.5 mg Cyclobenzaprine HCl (Flexeril) 10 mg PO Q8 PRN PRN Reason: Muscle spasm Epoetin Tito (Procrit) 10,000 unit IV MWF [facility] Last Admin: 03/06/18 14:02 Dose: 10,000 unit Ferrous Sulfate (Feosol) 325 mg PO TID [facility] Last Admin: 03/07/18 17:14 Dose: 325 mg Fluticasone/Vilanterol (Breo Ellipta 200-25 Mcg Inh) 1 puff INH RQD [facility] Gabapentin (Neurontin) 100 mg PO TID [facility] Last Admin: 03/07/18 17:14 Dose: 100 mg Hydralazine HCl (Apresoline) 25 mg PO Q8 [facility] Last Admin: 03/07/18 14:47 Dose: 25 mg Insulin Aspart (Novolog) 0 unit SC ACHS [facility]; Protocol Last Admin: 03/07/18 17:15 Dose: 10 units Insulin Glargine (Lantus) 24 unit SC HS [facility] Last Admin: 03/06/18 22:53 Dose: 24 units Pantoprazole Sodium (Protonix Ec Tab) 40 mg PO DAILY [facility] Last Admin: 03/07/18 10:30 Dose: 40 mg Rosuvastatin Calcium (Crestor) 5 mg PO HS [facility] Last Admin: 03/06/18 22:09 Dose: 5 mg Sevelamer Carbonate (Renvela) 2.4 gm PO TIDCC [facility] Last Admin: 03/07/18 17:15 Dose: 2.4 gm Sodium Bicarbonate (Sodium Bicarbonate Tab) 650 mg PO Q8 [facility] Last Admin: 03/07/18 14:51 Dose: 650 mg Vitamin B Complex/Vit C/Folic Acid (Nephro-Vince) 1 tab PO 0800 [facility] Last Admin: 03/07/18 08:30 Dose: 1 tab - Labs Labs: 03/03/18 07:52 03/07/18 07:50 PT 11.4 SECONDS (9.7-12.2) 02/24/18 00:56 INR 1.0 02/24/18 00:56 APTT 33 SECONDS (21-34) 02/24/18 00:56 - Head Exam Head Exam: ATRAUMATIC - Eye Exam Eye Exam: Normal appearance - ENT Exam ENT Exam: Mucous Membranes Dry - Respiratory Exam Respiratory Exam: NORMAL BREATHING PATTERN - Cardiovascular Exam Cardiovascular Exam: +S1, +S2 - GI/Abdominal Exam GI & Abdominal Exam: Normal Bowel Sounds Assessment and Plan (1) Anemia Assessment & Plan: anemia of CKD and chronic disease on EPO per renal transfusion support PRN outpatient screening colonoscopy Status: Acute
--- NOTE | 2018-03-07 19:58 | CP.PCM.PN ---
Subjective - Date & Time of Evaluation Date of Evaluation: 03/06/18 Time of Evaluation: 19:00 - Subjective Subjective: No complaints. Objective - Vital Signs/Intake and Output Vital Signs (last 24 hours): Temp Pulse Resp BP Pulse Ox 98.1 F 81 20 133/69 93 L 03/07/18 15:52 03/07/18 15:52 03/07/18 15:52 03/07/18 17:14 03/07/18 15:52 - Medications Medications: Current Medications Albuterol (Ventolin Hfa 90 Mcg/Actuation (8 G)) 1 puff IH RQID PRN PRN Reason: Wheezing Last Admin: 03/07/18 16:09 Dose: 1 puff Amlodipine Besylate (Norvasc) 10 mg PO DAILY [facility] Last Admin: 03/07/18 10:29 Dose: 10 mg Aspirin (Ecotrin) 81 mg PO DAILY [facility] Last Admin: 03/07/18 10:29 Dose: 81 mg Carvedilol (Coreg) 12.5 mg PO BID [facility] Last Admin: 03/07/18 17:14 Dose: 12.5 mg Cyclobenzaprine HCl (Flexeril) 10 mg PO Q8 PRN PRN Reason: Muscle spasm Epoetin Tito (Procrit) 10,000 unit IV MWF [facility] Last Admin: 03/06/18 14:02 Dose: 10,000 unit Ferrous Sulfate (Feosol) 325 mg PO TID [facility] Last Admin: 03/07/18 17:14 Dose: 325 mg Fluticasone/Vilanterol (Breo Ellipta 200-25 Mcg Inh) 1 puff INH RQD [facility] Gabapentin (Neurontin) 100 mg PO TID [facility] Last Admin: 03/07/18 17:14 Dose: 100 mg Hydralazine HCl (Apresoline) 25 mg PO Q8 [facility] Last Admin: 03/07/18 14:47 Dose: 25 mg Insulin Aspart (Novolog) 0 unit SC ACHS [facility]; Protocol Last Admin: 03/07/18 17:15 Dose: 10 units Insulin Glargine (Lantus) 24 unit SC HS [facility] Last Admin: 03/06/18 22:53 Dose: 24 units Pantoprazole Sodium (Protonix Ec Tab) 40 mg PO DAILY [facility] Last Admin: 03/07/18 10:30 Dose: 40 mg Rosuvastatin Calcium (Crestor) 5 mg PO HS [facility] Last Admin: 03/06/18 22:09 Dose: 5 mg Sevelamer Carbonate (Renvela) 2.4 gm PO TIDCC [facility] Last Admin: 03/07/18 17:15 Dose: 2.4 gm Sodium Bicarbonate (Sodium Bicarbonate Tab) 650 mg PO Q8 [facility] Last Admin: 03/07/18 14:51 Dose: 650 mg Vitamin B Complex/Vit C/Folic Acid (Nephro-Vince) 1 tab PO 0800 [facility] Last Admin: 03/07/18 08:30 Dose: 1 tab - Labs Labs: 03/03/18 07:52 03/07/18 07:50 PT 11.4 SECONDS (9.7-12.2) 02/24/18 00:56 INR 1.0 02/24/18 00:56 APTT 33 SECONDS (21-34) 02/24/18 00:56 - Head Exam Head Exam: ATRAUMATIC - Eye Exam Eye Exam: Normal appearance - ENT Exam ENT Exam: Mucous Membranes Dry - Respiratory Exam Respiratory Exam: NORMAL BREATHING PATTERN - Cardiovascular Exam Cardiovascular Exam: +S1, +S2 - GI/Abdominal Exam GI & Abdominal Exam: Normal Bowel Sounds Assessment and Plan (1) Anemia Assessment & Plan: anemia of CKD and chronic disease on EPO per renal transfusion support PRN outpatient screening colonoscopy Status: Acute
[2018-03-07] MEDS: (Lantus) Insulin Glargine, Recombinant SC SCH (21:42)
[2018-03-08] MEDS: (Novolog) Insulin Aspart, Recombinant 100 u/ml 10 ml vial SC SCH ×4 (07:58→21:27)
[2018-03-08] MEDS: Multivitamin Vitamin B Complex (Nephro-Vite) Tab PO SCH (07:58)
[2018-03-08] MEDS: Sevelamer Carb 2.4 gm/Packet PO SCH ×3 (07:58→18:05)
[2018-03-08] MEDS: Fluticasone-Vilanterol 200/25mcg Diskus INH SCH (08:10)
[2018-03-08] MEDS: Pantoprazole 40 mg EC Tab PO SCH (09:41)
--- NOTE | 2018-03-08 15:21 | CP.PCM.PN ---
Subjective - Date & Time of Evaluation Date of Evaluation: 03/08/18 Time of Evaluation: 08:00 - Subjective Subjective: afeb going for HD denies chest pain Objective - Vital Signs/Intake and Output Vital Signs (last 24 hours): Temp Pulse Resp BP Pulse Ox 97.8 F 88 18 155/67 H 95 03/08/18 07:00 03/08/18 07:00 03/08/18 07:00 03/08/18 09:41 03/07/18 23:30 - Medications Medications: Current Medications Albuterol (Ventolin Hfa 90 Mcg/Actuation (8 G)) 1 puff IH RQID PRN PRN Reason: Wheezing Last Admin: 03/07/18 16:09 Dose: 1 puff Amlodipine Besylate (Norvasc) 10 mg PO DAILY [facility] Last Admin: 03/08/18 09:41 Dose: 10 mg Aspirin (Ecotrin) 81 mg PO DAILY [facility] Last Admin: 03/08/18 09:41 Dose: 81 mg Carvedilol (Coreg) 12.5 mg PO BID [facility] Last Admin: 03/08/18 09:41 Dose: 12.5 mg Cyclobenzaprine HCl (Flexeril) 10 mg PO Q8 PRN PRN Reason: Muscle spasm Epoetin Tito (Procrit) 10,000 unit IV MWF [facility] Last Admin: 03/06/18 14:02 Dose: 10,000 unit Ferrous Sulfate (Feosol) 325 mg PO TID [facility] Last Admin: 03/08/18 14:00 Dose: Not Given Fluticasone/Vilanterol (Breo Ellipta 200-25 Mcg Inh) 1 puff INH RQD [facility] Gabapentin (Neurontin) 100 mg PO TID [facility] Last Admin: 03/08/18 14:00 Dose: Not Given Hydralazine HCl (Apresoline) 25 mg PO Q8 [facility] Last Admin: 03/08/18 05:20 Dose: 25 mg Insulin Aspart (Novolog) 0 unit SC [facility]; Protocol Last Admin: 03/08/18 12:30 Dose: 6 units Insulin Glargine (Lantus) 24 unit SC HS [facility] Last Admin: 03/07/18 21:42 Dose: 24 units Pantoprazole Sodium (Protonix Ec Tab) 40 mg PO DAILY [facility] Last Admin: 03/08/18 09:41 Dose: 40 mg Rosuvastatin Calcium (Crestor) 5 mg PO HS [facility] Last Admin: 03/07/18 21:41 Dose: 5 mg Sevelamer Carbonate (Renvela) 2.4 gm PO TIDCC [facility] Last Admin: 03/08/18 13:06 Dose: 2.4 gm Sodium Bicarbonate (Sodium Bicarbonate Tab) 650 mg PO Q8 [facility] Last Admin: 03/08/18 14:00 Dose: Not Given Vitamin B Complex/Vit C/Folic Acid (Nephro-Vince) 1 tab PO 0800 [facility] Last Admin: 03/08/18 07:58 Dose: 1 tab - Labs Labs: 03/03/18 07:52 03/07/18 07:50 PT 11.4 SECONDS (9.7-12.2) 02/24/18 00:56 INR 1.0 02/24/18 00:56 APTT 33 SECONDS (21-34) 02/24/18 00:56 - Constitutional Appears: Non-toxic, Chronically Ill - Head Exam Head Exam: NORMOCEPHALIC - Eye Exam Eye Exam: PERRL - ENT Exam ENT Exam: Mucous Membranes Dry - Neck Exam Neck Exam: absent: Lymphadenopathy - Respiratory Exam Respiratory Exam: Decreased Breath Sounds - Cardiovascular Exam Cardiovascular Exam: REGULAR RHYTHM - GI/Abdominal Exam GI & Abdominal Exam: Distended, Soft - Rectal Exam Rectal Exam: Deferred - Exam Exam: NORMAL INSPECTION Assessment and Plan (1) BLAYNE (acute kidney injury) Status: Acute (2) Hypertension Status: Chronic (3) CKD (chronic kidney disease) Status: Acute (4) Diabetes mellitus Status: Acute (5) Non-healing ulcer of foot Status: Acute (6) PVD (peripheral vascular disease) Status: Acute (7) Renal insufficiency Status: Acute (8) Diabetes mellitus type 2 in nonobese Status: Chronic - Assessment and Plan (Free Text) Assessment: for HD out pt colonoscopy
--- NOTE | 2018-03-08 15:54 | CP.PCM.PN ---
<Kristin Austin - Last Filed: 03/08/18 15:50> Subjective - Date & Time of Evaluation Date of Evaluation: 03/08/18 Time of Evaluation: 12:00 - Subjective Subjective: Podiatry - Dr. Mcmanus 52 year old female seen and evaluated at bedside for right lateral foot ulceration. Patient resting comfortably, NAD. Patient offers no complaints to her right foot wound w/dressing clean/dry/intact. Denies pain to right foot. Denies n/v/f/d/c/sob/cp/renteria. Objective - Vital Signs/Intake and Output Vital Signs (last 24 hours): Temp Pulse Resp BP Pulse Ox 98 F 93 H 18 132/69 97 03/08/18 14:15 03/08/18 14:15 03/08/18 14:15 03/08/18 14:50 03/08/18 14:15 - Medications Medications: Current Medications Albuterol (Ventolin Hfa 90 Mcg/Actuation (8 G)) 1 puff IH RQID PRN PRN Reason: Wheezing Last Admin: 03/07/18 16:09 Dose: 1 puff Amlodipine Besylate (Norvasc) 10 mg PO DAILY [facility] Last Admin: 03/08/18 09:41 Dose: 10 mg Aspirin (Ecotrin) 81 mg PO DAILY [facility] Last Admin: 03/08/18 09:41 Dose: 81 mg Carvedilol (Coreg) 12.5 mg PO BID [facility] Last Admin: 03/08/18 09:41 Dose: 12.5 mg Cyclobenzaprine HCl (Flexeril) 10 mg PO Q8 PRN PRN Reason: Muscle spasm Epoetin Tito (Procrit) 10,000 unit IV MWF [facility] Last Admin: 03/06/18 14:02 Dose: 10,000 unit Ferrous Sulfate (Feosol) 325 mg PO TID [facility] Last Admin: 03/08/18 14:00 Dose: Not Given Fluticasone/Vilanterol (Breo Ellipta 200-25 Mcg Inh) 1 puff INH RQD [facility] Gabapentin (Neurontin) 100 mg PO TID [facility] Last Admin: 03/08/18 14:00 Dose: Not Given Hydralazine HCl (Apresoline) 25 mg PO Q8 [facility] Last Admin: 03/08/18 05:20 Dose: 25 mg Insulin Aspart (Novolog) 0 unit SC ACHS [facility]; Protocol Last Admin: 03/08/18 12:30 Dose: 6 units Insulin Glargine (Lantus) 24 unit SC [facility] Last Admin: 03/07/18 21:42 Dose: 24 units Pantoprazole Sodium (Protonix Ec Tab) 40 mg PO DAILY [facility] Last Admin: 03/08/18 09:41 Dose: 40 mg Rosuvastatin Calcium (Crestor) 5 mg PO HS [facility] Last Admin: 03/07/18 21:41 Dose: 5 mg Sevelamer Carbonate (Renvela) 2.4 gm PO TIDCC [facility] Last Admin: 03/08/18 13:06 Dose: 2.4 gm Sodium Bicarbonate (Sodium Bicarbonate Tab) 650 mg PO Q8 [facility] Last Admin: 03/08/18 14:00 Dose: Not Given Vitamin B Complex/Vit C/Folic Acid (Nephro-Vince) 1 tab PO 0800 [facility] Last Admin: 03/08/18 07:58 Dose: 1 tab - Labs Labs: 03/03/18 07:52 03/07/18 07:50 PT 11.4 SECONDS (9.7-12.2) 02/24/18 00:56 INR 1.0 02/24/18 00:56 APTT 33 SECONDS (21-34) 02/24/18 00:56 - Constitutional Appears: Well, Non-toxic, No Acute Distress - Extremities Exam Additional comments: LE focused exam: VASC: DP/PT non-palpable b/l, temperature gradient cool to cool from proximal to distal b/l, Cap refill delayed to digits > 4 sec, no edema noted b/l. NEURO: Gross sensation intact, Protective sensation diminished DERM: Healing circular ulceration noted to the lateral aspect of right 5th metatarsal base with overlying hyperkeratosis. No drainage, No erythema, No fluctanance noted, No streaking. No clinical signs of infection. MSK: No pain on palpation noted to ulceration. Muscle strength 5/5 for all dorsiflexors, plantarflexors, inverters, and everters. - Neurological Exam Neurological Exam: Alert, Awake, Oriented x3 - Psychiatric Exam Psychiatric exam: Normal Affect, Normal Mood Assessment and Plan - Assessment and Plan (Free Text) Assessment: 52 year old female with healed right foot ulceration Plan: Patient seen and evaluated alongside attending, Dr. Mcmanus Afebrile Hyperkeratosis sharply pared using a #15 blade w/o incident Continue local wound care - betadine, DSD Wound stable from podiatry standpoint Podiatry will continue to follow <Malick Mcmanus - Last Filed: 03/08/18 18:08> Objective - Vital Signs/Intake and Output Vital Signs (last 24 hours): Temp Pulse Resp BP Pulse Ox 98 F 93 H 18 153/87 H 97 03/08/18 14:15 03/08/18 14:15 03/08/18 14:15 03/08/18 16:50 03/08/18 14:15 - Medications Medications: Current Medications Albuterol (Ventolin Hfa 90 Mcg/Actuation (8 G)) 1 puff IH RQID PRN PRN Reason: Wheezing Last Admin: 03/07/18 16:09 Dose: 1 puff Amlodipine Besylate (Norvasc) 10 mg PO DAILY [facility] Last Admin: 03/08/18 09:41 Dose: 10 mg Aspirin (Ecotrin) 81 mg PO DAILY [facility] Last Admin: 03/08/18 09:41 Dose: 81 mg Carvedilol (Coreg) 12.5 mg PO BID [facility] Last Admin: 03/08/18 09:41 Dose: 12.5 mg Cyclobenzaprine HCl (Flexeril) 10 mg PO Q8 PRN PRN Reason: Muscle spasm Last Admin: 03/08/18 17:42 Dose: 10 mg Epoetin Tito (Procrit) 10,000 unit IV MWF [facility] Last Admin: 03/08/18 16:36 Dose: 10,000 unit Ferrous Sulfate (Feosol) 325 mg PO TID [facility] Last Admin: 03/08/18 14:00 Dose: Not Given Fluticasone/Vilanterol (Breo Ellipta 200-25 Mcg Inh) 1 puff INH RQD [facility] Gabapentin (Neurontin) 100 mg PO TID [facility] Last Admin: 03/08/18 14:00 Dose: Not Given Hydralazine HCl (Apresoline) 25 mg PO Q8 [facility] Last Admin: 03/08/18 05:20 Dose: 25 mg Insulin Aspart (Novolog) 0 unit SC ACHS [facility]; Protocol Last Admin: 03/08/18 12:30 Dose: 6 units Insulin Glargine (Lantus) 24 unit SC HS [facility] Last Admin: 03/07/18 21:42 Dose: 24 units Pantoprazole Sodium (Protonix Ec Tab) 40 mg PO DAILY [facility] Last Admin: 03/08/18 09:41 Dose: 40 mg Paricalcitol (Zemplar) 2 mcg IV MWF [facility] Last Admin: 03/08/18 16:34 Dose: 2 mcg Rosuvastatin Calcium (Crestor) 5 mg PO [facility] Last Admin: 03/07/18 21:41 Dose: 5 mg Sevelamer Carbonate (Renvela) 2.4 gm PO TIDCC [facility] Last Admin: 03/08/18 13:06 Dose: 2.4 gm Sodium Bicarbonate (Sodium Bicarbonate Tab) 650 mg PO Q8 [facility] Last Admin: 03/08/18 14:00 Dose: Not Given Vitamin B Complex/Vit C/Folic Acid (Nephro-Vince) 1 tab PO 0800 [facility] Last Admin: 03/08/18 07:58 Dose: 1 tab - Labs Labs: 03/03/18 07:52 03/07/18 07:50 PT 11.4 SECONDS (9.7-12.2) 02/24/18 00:56 INR 1.0 02/24/18 00:56 APTT 33 SECONDS (21-34) 02/24/18 00:56 Assessment and Plan - Assessment and Plan (Free Text) Plan: seen at bedside with resident . chronic wound almost resolved lateral midfoot . will continue local wound care .agree with above findings/
[2018-03-08] MEDS: Paricalcitol 2 mcg/ml Inj IV SCH (16:34)
[2018-03-08] MEDS: Epoetin Alfa 10,000 unit/ml Dialysis IV SCH (16:36)
--- NOTE | 2018-03-08 17:33 | CP.PCM.CON ---
History of Present Illness - History of Present Illness History of Present Illness: reason for consultation: shortness of breath Patient is a 52 year old female with a PMHx of HTN, DM type II on Dialysis, CABG, COPD, Hypercholesterolemia who was initially brought in due to elevated BP and headaches. Patient reports that her respiratory problems are an ongoing issue for her as she has asthma. She reports SOB and cough. Pt also indicates that the SOB is made worst while laying down. She uses at home pump and nebuli zer solution. Patient is currently receiving Dialysis, states this is her 5th session. Chest Xray showed pulmonary vascular congestion. Pt denies chest pain. Admits to SOB, wheezing and cough. PMHx: HTN, DM type II on Dialysis, CABG, COPD, Hypercholesterolemia Surgical Hx: Bypass, Hysterectomy, Left brachio-cephalic AVF (02/17/2018), Permacath insertion (02/28/2018) Allergies: NKDA Meds: Albuterol, Breo Ellipta, Amlodipine, Carvedilol, Flexeril, Procrit, Feosol, Neurontin, Apresoline, Lantus, Novolog, Protonix, Crestor, Renvela, Vitamin B/Vit C/Folic Acid Social Hx: Patient denies tobacco and alcohol use. PLAN - Symptoms are related to pulmonary edema - Continue current therapy of Albuterol and Breo Ellipta Past Patient History - Infectious Disease Hx of Infectious Diseases: None - Past Medical History & Family History Past Medical History?: Yes - Past Social History Smoking Status: Never Smoked - CARDIAC Hx Hypercholesterolemia: Yes Hx Hypertension: Yes - PULMONARY Hx Chronic Obstructive Pulmonary Disease (COPD): Yes - NEUROLOGICAL Hx Neurological Disorder: Yes Hx Syncope: Yes - HEENT Hx HEENT Problems: No - RENAL Hx Chronic Kidney Disease: No - ENDOCRINE/METABOLIC Hx Diabetes Mellitus Type 1: Yes - HEMATOLOGICAL/ONCOLOGICAL Hx Anemia: Yes - INTEGUMENTARY Hx Dermatological Problems: No - MUSCULOSKELETAL/RHEUMATOLOGICAL Hx Arthritis: Yes (KNEE; BACK) - GASTROINTESTINAL Hx Gastrointestinal Disorders: Yes Hx Gastroesophageal Reflux: Yes - GENITOURINARY/GYNECOLOGICAL Hx Genitourinary Disorders: No - PSYCHIATRIC Hx Substance Use: No - SURGICAL HISTORY Hx Coronary Artery Bypass Graft: Yes (09/19) - ANESTHESIA Hx Anesthesia: Yes Hx Anesthesia Reactions: No Hx Malignant Hyperthermia: No Meds Allergies/Adverse Reactions: Allergies Allergy/AdvReac Type Severity Reaction Status Date / Time No Known Allergies Allergy Verified 05/20/17 09:51 - Medications Medications: Current Medications Albuterol (Ventolin Hfa 90 Mcg/Actuation (8 G)) 1 puff IH RQID PRN PRN Reason: Wheezing Last Admin: 03/07/18 16:09 Dose: 1 puff Amlodipine Besylate (Norvasc) 10 mg PO DAILY [facility] Last Admin: 03/08/18 09:41 Dose: 10 mg Aspirin (Ecotrin) 81 mg PO DAILY [facility] Last Admin: 03/08/18 09:41 Dose: 81 mg Carvedilol (Coreg) 12.5 mg PO BID [facility] Last Admin: 03/08/18 09:41 Dose: 12.5 mg Cyclobenzaprine HCl (Flexeril) 10 mg PO Q8 PRN PRN Reason: Muscle spasm Epoetin Tito (Procrit) 10,000 unit IV F [facility] Last Admin: 03/08/18 16:36 Dose: 10,000 unit Ferrous Sulfate (Feosol) 325 mg PO TID [facility] Last Admin: 03/08/18 14:00 Dose: Not Given Fluticasone/Vilanterol (Breo Ellipta 200-25 Mcg Inh) 1 puff INH RQD [facility] Gabapentin (Neurontin) 100 mg PO TID [facility] Last Admin: 03/08/18 14:00 Dose: Not Given Hydralazine HCl (Apresoline) 25 mg PO Q8 [facility] Last Admin: 03/08/18 05:20 Dose: 25 mg Insulin Aspart (Novolog) 0 unit SC [facility]; Protocol Last Admin: 03/08/18 12:30 Dose: 6 units Insulin Glargine (Lantus) 24 unit SC [facility] Last Admin: 03/07/18 21:42 Dose: 24 units Pantoprazole Sodium (Protonix Ec Tab) 40 mg PO DAILY [facility] Last Admin: 03/08/18 09:41 Dose: 40 mg Paricalcitol (Zemplar) 2 mcg IV MWF [facility] Last Admin: 03/08/18 16:34 Dose: 2 mcg Rosuvastatin Calcium (Crestor) 5 mg PO [facility] Last Admin: 03/07/18 21:41 Dose: 5 mg Sevelamer Carbonate (Renvela) 2.4 gm PO TIDCC [facility] Last Admin: 03/08/18 13:06 Dose: 2.4 gm Sodium Bicarbonate (Sodium Bicarbonate Tab) 650 mg PO Q8 [facility] Last Admin: 03/08/18 14:00 Dose: Not Given Vitamin B Complex/Vit C/Folic Acid (Nephro-Vince) 1 tab PO 0800 [facility] Last Admin: 03/08/18 07:58 Dose: 1 tab Results - Vital Signs Recent Vital Signs: Last Vital Signs Temp 98 F 03/08/18 14:15 Pulse 93 H 03/08/18 14:15 Resp 18 03/08/18 14:15 BP 153/87 H 03/08/18 16:50 Pulse Ox 97 03/08/18 14:15 - Labs Result Diagrams: 03/03/18 07:52 03/07/18 07:50 Labs: Laboratory Results - last 24 hr 03/07/18 03/08/18 03/08/18 21:03 06:34 11:37 POC Glucose (mg/dL) 232 H 333 H 287 H 03/08/18 16:06 POC Glucose (mg/dL) 194 H
[2018-03-08] MEDS: (Lantus) Insulin Glargine, Recombinant SC SCH (21:26)
--- NOTE | 2018-03-08 23:52 | CP.PCM.PN ---
Subjective - Date & Time of Evaluation Date of Evaluation: 03/08/18 Time of Evaluation: 12:00 - Subjective Subjective: For dialysis Objective - Vital Signs/Intake and Output Vital Signs (last 24 hours): Temp Pulse Resp BP Pulse Ox 97.5 F L 93 H 18 149/76 99 03/08/18 17:15 03/08/18 17:15 03/08/18 17:15 03/08/18 18:06 03/08/18 17:15 - Medications Medications: Current Medications Albuterol (Ventolin Hfa 90 Mcg/Actuation (8 G)) 1 puff IH RQID PRN PRN Reason: Wheezing Last Admin: 03/07/18 16:09 Dose: 1 puff Amlodipine Besylate (Norvasc) 10 mg PO DAILY [facility] Last Admin: 03/08/18 09:41 Dose: 10 mg Aspirin (Ecotrin) 81 mg PO DAILY [facility] Last Admin: 03/08/18 09:41 Dose: 81 mg Carvedilol (Coreg) 12.5 mg PO BID [facility] Last Admin: 03/08/18 18:06 Dose: 12.5 mg Cyclobenzaprine HCl (Flexeril) 10 mg PO Q8 PRN PRN Reason: Muscle spasm Last Admin: 03/08/18 17:42 Dose: 10 mg Epoetin Tito (Procrit) 10,000 unit IV MWF [facility] Last Admin: 03/08/18 16:36 Dose: 10,000 unit Ferrous Sulfate (Feosol) 325 mg PO TID [facility] Last Admin: 03/08/18 18:05 Dose: 325 mg Fluticasone/Vilanterol (Breo Ellipta 200-25 Mcg Inh) 1 puff INH RQD [facility] Gabapentin (Neurontin) 100 mg PO TID [facility] Last Admin: 03/08/18 18:05 Dose: 100 mg Hydralazine HCl (Apresoline) 25 mg PO Q8 [facility] Last Admin: 03/08/18 21:26 Dose: 25 mg Insulin Aspart (Novolog) 0 unit SC ACHS [facility]; Protocol Last Admin: 03/08/18 21:27 Dose: Not Given Insulin Glargine (Lantus) 24 unit SC HS [facility] Last Admin: 03/08/18 21:26 Dose: 24 units Pantoprazole Sodium (Protonix Ec Tab) 40 mg PO DAILY [facility] Last Admin: 03/08/18 09:41 Dose: 40 mg Paricalcitol (Zemplar) 2 mcg IV MWF [facility] Last Admin: 03/08/18 16:34 Dose: 2 mcg Rosuvastatin Calcium (Crestor) 5 mg PO HS [facility] Last Admin: 03/08/18 21:26 Dose: 5 mg Sevelamer Carbonate (Renvela) 2.4 gm PO TIDCC [facility] Last Admin: 03/08/18 18:05 Dose: 2.4 gm Sodium Bicarbonate (Sodium Bicarbonate Tab) 650 mg PO Q8 [facility] Last Admin: 03/08/18 21:26 Dose: 650 mg Vitamin B Complex/Vit C/Folic Acid (Nephro-Vince) 1 tab PO 0800 [facility] Last Admin: 03/08/18 07:58 Dose: 1 tab - Labs Labs: 03/03/18 07:52 03/07/18 07:50 PT 11.4 SECONDS (9.7-12.2) 02/24/18 00:56 INR 1.0 02/24/18 00:56 APTT 33 SECONDS (21-34) 02/24/18 00:56 - Head Exam Head Exam: ATRAUMATIC - Eye Exam Eye Exam: Normal appearance - ENT Exam ENT Exam: Mucous Membranes Dry - Respiratory Exam Respiratory Exam: NORMAL BREATHING PATTERN - Cardiovascular Exam Cardiovascular Exam: +S1, +S2 - GI/Abdominal Exam GI & Abdominal Exam: Normal Bowel Sounds Assessment and Plan (1) Anemia Assessment & Plan: anemia of CKD and chronic disease on EPO per renal transfusion support PRN outpatient screening colonoscopy Status: Acute
[2018-03-09] MEDS: Albuterol HFA 90 mcg/actuation (8 g) IH PRN (08:09)
[2018-03-09] MEDS: Fluticasone-Vilanterol 200/25mcg Diskus INH SCH (08:09)
[2018-03-09] MEDS: Sevelamer Carb 2.4 gm/Packet PO SCH ×3 (08:33→18:58)
[2018-03-09] MEDS: Multivitamin Vitamin B Complex (Nephro-Vite) Tab PO SCH (08:33)
[2018-03-09] MEDS: (Novolog) Insulin Aspart, Recombinant 100 u/ml 10 ml vial SC SCH ×4 (08:33→22:44)
[2018-03-09] MEDS: Pantoprazole 40 mg EC Tab PO SCH (10:16)
--- NOTE | 2018-03-09 16:34 | RAD ---
Date of service: 03/09/2018 HISTORY: Shortness of breath COMPARISON: 02/27/2018 FINDINGS: LUNGS: Stable pulmonary edema. PLEURA: Bilateral pleural effusions indistinguishable from pulmonary edema. CARDIOVASCULAR: Cardiomegaly unchanged. Venous access catheter in stable, satisfactory position. OSSEOUS STRUCTURES: No significant abnormalities. VISUALIZED UPPER ABDOMEN: Normal. OTHER FINDINGS: None. IMPRESSION: Cardiomegaly, presumed cardiogenic pulmonary edema or similar to that seen previously.
--- NOTE | 2018-03-09 16:52 | CP.PCM.PN ---
Subjective - Date & Time of Evaluation Date of Evaluation: 03/09/18 Time of Evaluation: 10:00 - Subjective Subjective: increasing sob on nasal O2 given stat lasix iv Dr Haddad notified cxr ordered Objective - Vital Signs/Intake and Output Vital Signs (last 24 hours): Temp Pulse Resp BP Pulse Ox 98.4 F 80 20 127/65 95 03/09/18 15:55 03/09/18 15:55 03/09/18 15:55 03/09/18 16:26 03/09/18 15:55 - Medications Medications: Current Medications Albuterol (Ventolin Hfa 90 Mcg/Actuation (8 G)) 1 puff IH RQID PRN PRN Reason: Wheezing Last Admin: 03/09/18 08:09 Dose: 1 puff Amlodipine Besylate (Norvasc) 10 mg PO DAILY [facility] Last Admin: 03/09/18 10:16 Dose: 10 mg Aspirin (Ecotrin) 81 mg PO DAILY [facility] Last Admin: 03/09/18 10:22 Dose: 81 mg Carvedilol (Coreg) 12.5 mg PO BID [facility] Last Admin: 03/09/18 10:16 Dose: 12.5 mg Cyclobenzaprine HCl (Flexeril) 10 mg PO Q8 PRN PRN Reason: Muscle spasm Last Admin: 03/08/18 17:42 Dose: 10 mg Epoetin Tito (Procrit) 10,000 unit IV MWF [facility] Last Admin: 03/08/18 16:36 Dose: 10,000 unit Ferrous Sulfate (Feosol) 325 mg PO TID [facility] Last Admin: 03/09/18 10:15 Dose: 325 mg Fluticasone/Vilanterol (Breo Ellipta 200-25 Mcg Inh) 1 puff INH RQD [facility] Last Admin: 03/09/18 08:09 Dose: 1 puff Gabapentin (Neurontin) 100 mg PO TID [facility] Last Admin: 03/09/18 13:12 Dose: 100 mg Hydralazine HCl (Apresoline) 25 mg PO Q8 [facility] Last Admin: 03/09/18 13:12 Dose: 25 mg Insulin Aspart (Novolog) 0 unit SC [facility]; Protocol Last Admin: 03/09/18 13:11 Dose: 4 units Insulin Glargine (Lantus) 24 unit SC [facility] Last Admin: 03/08/18 21:26 Dose: 24 units Pantoprazole Sodium (Protonix Ec Tab) 40 mg PO DAILY [facility] Last Admin: 03/09/18 10:16 Dose: 40 mg Paricalcitol (Zemplar) 2 mcg IV MWF [facility] Last Admin: 03/08/18 16:34 Dose: 2 mcg Rosuvastatin Calcium (Crestor) 5 mg PO HS [facility] Last Admin: 03/08/18 21:26 Dose: 5 mg Sevelamer Carbonate (Renvela) 2.4 gm PO TIDCC [facility] Last Admin: 03/09/18 12:17 Dose: 2.4 gm Sodium Bicarbonate (Sodium Bicarbonate Tab) 650 mg PO Q8 [facility] Last Admin: 03/09/18 13:12 Dose: 650 mg Vitamin B Complex/Vit C/Folic Acid (Nephro-Vince) 1 tab PO 0800 [facility] Last Admin: 03/09/18 08:33 Dose: 1 tab - Labs Labs: 03/03/18 07:52 03/07/18 07:50 PT 11.4 SECONDS (9.7-12.2) 02/24/18 00:56 INR 1.0 02/24/18 00:56 APTT 33 SECONDS (21-34) 02/24/18 00:56 - Constitutional Appears: Non-toxic, Chronically Ill - Head Exam Head Exam: NORMOCEPHALIC - Eye Exam Eye Exam: absent: Scleral icterus - ENT Exam ENT Exam: Mucous Membranes Dry - Neck Exam Neck Exam: absent: Lymphadenopathy - Respiratory Exam Respiratory Exam: Decreased Breath Sounds, Rales - Cardiovascular Exam Cardiovascular Exam: REGULAR RHYTHM Assessment and Plan (1) BLAYNE (acute kidney injury) Status: Acute (2) Hypertension Status: Chronic (3) CKD (chronic kidney disease) Status: Acute (4) Diabetes mellitus Status: Acute (5) Non-healing ulcer of foot Status: Acute (6) PVD (peripheral vascular disease) Status: Acute (7) Renal insufficiency Status: Acute (8) Diabetes mellitus type 2 in nonobese Status: Chronic
--- NOTE | 2018-03-09 17:40 | CP.PCM.PN ---
Subjective - Date & Time of Evaluation Date of Evaluation: 03/09/18 Time of Evaluation: 17:39 - Subjective Subjective: follow up consult is dictated, seen and examined#[id number] Objective - Vital Signs/Intake and Output Vital Signs (last 24 hours): Temp Pulse Resp BP Pulse Ox 98.4 F 80 20 127/65 95 03/09/18 15:55 03/09/18 15:55 03/09/18 15:55 03/09/18 16:26 03/09/18 15:55 - Medications Medications: Current Medications Albuterol (Ventolin Hfa 90 Mcg/Actuation (8 G)) 1 puff IH RQID PRN PRN Reason: Wheezing Last Admin: 03/09/18 08:09 Dose: 1 puff Amlodipine Besylate (Norvasc) 10 mg PO DAILY [facility] Last Admin: 03/09/18 10:16 Dose: 10 mg Aspirin (Ecotrin) 81 mg PO DAILY [facility] Last Admin: 03/09/18 10:22 Dose: 81 mg Carvedilol (Coreg) 12.5 mg PO BID [facility] Last Admin: 03/09/18 10:16 Dose: 12.5 mg Cyclobenzaprine HCl (Flexeril) 10 mg PO Q8 PRN PRN Reason: Muscle spasm Last Admin: 03/08/18 17:42 Dose: 10 mg Epoetin Tito (Procrit) 10,000 unit IV MWF [facility] Last Admin: 03/08/18 16:36 Dose: 10,000 unit Ferrous Sulfate (Feosol) 325 mg PO TID [facility] Last Admin: 03/09/18 10:15 Dose: 325 mg Fluticasone/Vilanterol (Breo Ellipta 200-25 Mcg Inh) 1 puff INH RQD [facility] Last Admin: 03/09/18 08:09 Dose: 1 puff Gabapentin (Neurontin) 100 mg PO TID [facility] Last Admin: 03/09/18 13:12 Dose: 100 mg Hydralazine HCl (Apresoline) 25 mg PO Q8 [facility] Last Admin: 03/09/18 13:12 Dose: 25 mg Insulin Aspart (Novolog) 0 unit SC [facility]; Protocol Last Admin: 03/09/18 13:11 Dose: 4 units Insulin Glargine (Lantus) 24 unit SC HS [facility] Last Admin: 03/08/18 21:26 Dose: 24 units Pantoprazole Sodium (Protonix Ec Tab) 40 mg PO DAILY [facility] Last Admin: 03/09/18 10:16 Dose: 40 mg Paricalcitol (Zemplar) 2 mcg IV MWF [facility] Last Admin: 03/08/18 16:34 Dose: 2 mcg Rosuvastatin Calcium (Crestor) 5 mg PO HS [facility] Last Admin: 03/08/18 21:26 Dose: 5 mg Sevelamer Carbonate (Renvela) 2.4 gm PO TIDCC [facility] Last Admin: 03/09/18 12:17 Dose: 2.4 gm Sodium Bicarbonate (Sodium Bicarbonate Tab) 650 mg PO Q8 [facility] Last Admin: 03/09/18 13:12 Dose: 650 mg Vitamin B Complex/Vit C/Folic Acid (Nephro-Vince) 1 tab PO 0800 [facility] Last Admin: 03/09/18 08:33 Dose: 1 tab - Labs Labs: 03/03/18 07:52 03/07/18 07:50 PT 11.4 SECONDS (9.7-12.2) 02/24/18 00:56 INR 1.0 02/24/18 00:56 APTT 33 SECONDS (21-34) 02/24/18 00:56
--- NOTE | 2018-03-09 17:51 | CP.PCM.PN ---
Subjective - Date & Time of Evaluation Date of Evaluation: 03/09/18 Time of Evaluation: 16:00 - Subjective Subjective: Has some shortness of breath Objective - Vital Signs/Intake and Output Vital Signs (last 24 hours): Temp Pulse Resp BP Pulse Ox 98.4 F 80 20 127/65 95 03/09/18 15:55 03/09/18 15:55 03/09/18 15:55 03/09/18 16:26 03/09/18 15:55 - Medications Medications: Current Medications Albuterol (Ventolin Hfa 90 Mcg/Actuation (8 G)) 1 puff IH RQID PRN PRN Reason: Wheezing Last Admin: 03/09/18 08:09 Dose: 1 puff Amlodipine Besylate (Norvasc) 10 mg PO DAILY [facility] Last Admin: 03/09/18 10:16 Dose: 10 mg Aspirin (Ecotrin) 81 mg PO DAILY [facility] Last Admin: 03/09/18 10:22 Dose: 81 mg Carvedilol (Coreg) 12.5 mg PO BID [facility] Last Admin: 03/09/18 10:16 Dose: 12.5 mg Cyclobenzaprine HCl (Flexeril) 10 mg PO Q8 PRN PRN Reason: Muscle spasm Last Admin: 03/08/18 17:42 Dose: 10 mg Epoetin Tito (Procrit) 10,000 unit IV MWF [facility] Last Admin: 03/08/18 16:36 Dose: 10,000 unit Ferrous Sulfate (Feosol) 325 mg PO TID [facility] Last Admin: 03/09/18 10:15 Dose: 325 mg Fluticasone/Vilanterol (Breo Ellipta 200-25 Mcg Inh) 1 puff INH RQD [facility] Last Admin: 03/09/18 08:09 Dose: 1 puff Furosemide (Lasix) 40 mg PO BID [facility] Gabapentin (Neurontin) 100 mg PO TID [facility] Last Admin: 03/09/18 13:12 Dose: 100 mg Hydralazine HCl (Apresoline) 25 mg PO Q8 [facility] Last Admin: 03/09/18 13:12 Dose: 25 mg Insulin Aspart (Novolog) [facility]; Protocol Last Admin: 03/09/18 13:11 Dose: 4 units Insulin Glargine (Lantus) 24 [address] [facility] Last Admin: 03/08/18 21:26 Dose: 24 units Pantoprazole Sodium (Protonix Ec Tab) 40 mg PO DAILY [facility] Last Admin: 03/09/18 10:16 Dose: 40 mg Paricalcitol (Zemplar) 2 mcg IV MWF [facility] Last Admin: 03/08/18 16:34 Dose: 2 mcg Rosuvastatin Calcium (Crestor) 5 mg PO HS [facility] Last Admin: 03/08/18 21:26 Dose: 5 mg Sevelamer Carbonate (Renvela) 2.4 gm PO TIDCC [facility] Last Admin: 03/09/18 12:17 Dose: 2.4 gm Sodium Bicarbonate (Sodium Bicarbonate Tab) 650 mg PO Q8 [facility] Last Admin: 03/09/18 13:12 Dose: 650 mg Vitamin B Complex/Vit C/Folic Acid (Nephro-Vince) 1 tab PO 0800 [facility] Last Admin: 03/09/18 08:33 Dose: 1 tab - Labs Labs: 03/03/18 07:52 03/07/18 07:50 PT 11.4 SECONDS (9.7-12.2) 02/24/18 00:56 INR 1.0 02/24/18 00:56 APTT 33 SECONDS (21-34) 02/24/18 00:56 - Head Exam Head Exam: ATRAUMATIC - Eye Exam Eye Exam: Normal appearance - ENT Exam ENT Exam: Mucous Membranes Dry - Respiratory Exam Respiratory Exam: NORMAL BREATHING PATTERN - Cardiovascular Exam Cardiovascular Exam: +S1, +S2 - GI/Abdominal Exam GI & Abdominal Exam: Normal Bowel Sounds Assessment and Plan (1) Anemia Assessment & Plan: anemia of CKD and chronic disease on EPO per renal transfusion support PRN outpatient screening colonoscopy Status: Acute
[2018-03-09 22:10] LABS: TROPONIN I 0.019 ng/mL (0.00-0.120)
[2018-03-09 22:16] LABS: CK-MB 2.27 ng/mL (0.0-3.38)
[2018-03-09] MEDS: (Lantus) Insulin Glargine, Recombinant SC SCH (22:45)
--- NOTE | 2018-03-10 02:15 | PN ---
DATE: 03/09/2018 LOCATION: Room 657, bed B. REQUESTED BY: Dr. Wes Carrillo. REASON FOR FOLLOWUP: End-stage renal disease for continuation with hemodialysis. SUBJECTIVE: Mrs. Orozco is a 52 years old [place]ian female with a history of longstanding hypertension, diabetes, hyperlipidemia, coronary artery disease, peripheral vascular disease with right foot ulcer status post angioplasty of the right lower extremity about a month ago, was admitted with headache and right-sided body pains and found to have a worsening renal function and developed hyperkalemia, metabolic acidosis, status post left upper extremity AV fistula and also subsequently the patient had right internal jugular Permacath, started on hemodialysis for shortness of breath. The patient is noncompliant with fluids and complains of mild shortness of breath today. The patient underwent hemodialysis yesterday, had ultrafiltration about 3.4 liters. The patient was given Lasix 1 dose this afternoon. PHYSICAL EXAMINATION: VITAL SIGNS: Blood pressure 127/65, pulse 80, respirations 20, temperature 98.4, saturation 95%. Height 5 feet 5 inches, weight is 132 pounds. GENERAL: Mrs. Orozco is a 52 years old female, moderately built, moderately nourished, in mild distress. HEENT: Pupils normal and reactive to light and accommodation,. Conjunctivae pink. Sclerae anicteric. Tongue is moist. No thyroid enlargement. LUNGS: Symmetric on both sides. Bilateral breath sounds present. Clear to auscultation. CVS: Goldonna at the fifth intercostal space, midclavicular line. S1 and S2 audibile. No murmur or gallop. ABDOMEN: Normal in appearance, soft, tympanic. No guarding. No rigidity. No hepatosplenomegaly. [employer]: The patient is alert, awake, oriented x3. Nonfocal neuro examination. Cranial nerves II through XII grossly intact. Sensory and motor system is within normal limits. EXTREMITIES: No cyanosis, no clubbing. The patient has a dressing to the right foot. The patient also has 1-2+ edema in both lower extremities. MEDICATIONS: Reviewed; hydralazine 25 mg p.o. every 8 hours, Breo 1 puff inhaler q.d., Coreg 12.5 mg p.o. b.i.d., Crestor 5 mg p.o. at bedtime, aspirin 81 mg daily, Feosol 325 mg p.o. t.i.d., Flexeril, Lantus, Lasix added this evening 40 mg p.o. b.i.d., Nephro-Vince 1 tablet daily, gabapentin, amlodipine, Procrit, Protonix, Renvela, Zemplar and Ventolin inhaler. LABORATORY DATA: CPK 99 and CK-MB is 2.2. Troponin 0.019. Accu-Cheks 192, 206 and 254. Chest x-ray report this afternoon, impression; cardiogenic pulmonary are similar to that of seen previously. ASSESSMENT: In summary, Mrs. Orozco is a 52 years old [place]ian female with a history of hypertension, diabetes, hyperlipidemia, coronary artery disease status post coronary artery bypass graft, status post angioplasty of the right lower extremity with worsening renal function, status post arteriovenous fistula, started on hemodialysis. 1. Renal failure most likely acute on chronic kidney disease, cannot rule out progression of the end-stage renal disease due to massive proteinuria. 2. Hypertension. 3. Anemia. 4. Fluid overload. PLAN: Restrict fluids to 1 liter per day and discussed with the patient in detail and we will schedule for hemodialysis in a.m. We will try to ultrafilter as much as the patient can tolerate and also started on Lasix 40 mg p.o. b.i.d., the patient was given one dose stat IV push. Dr. Carrillo agreed with the plan. Vasiliy Emery MD MTDD
[2018-03-10] MEDS: (Novolog) Insulin Aspart, Recombinant 100 u/ml 10 ml vial SC SCH ×4 (07:33→21:52)
[2018-03-10 08:12] LABS: BASO # 0.1 K/uL (0.0-0.2); BASO % 0.8 % (0.0-2.0); EOS # 0.3 K/uL (0.0-0.7); EOS % 4.3 % (0.0-4.0); HEMOGLOBIN 8.9 g/dL (11.0-16.0); LYMPH # 1.3 K/uL (1.0-4.3); LYMPH % 16.9 % (20.0-40.0); MEAN CELL VOLUME 77.2 fL (81.0-99.0); MEAN CORPUSCULAR HEMOGLOBIN 25.1 pg (27.0-31.0); MEAN CORPUSCULAR HGB CONC 32.5 g/dL (33.0-37.0); MEAN PLATELET VOLUME 8.8 fL (7.2-11.7); MONO # 0.7 K/uL (0.0-0.8); MONO % 9.3 % (0.0-10.0); NEUT # 5.5 K/uL (1.8-7.0); NEUT % 68.7 % (50.0-75.0); RBC 3.55 Mil/uL (3.80-5.20); RED CELL DISTRIBUTION WIDTH 18.4 % (11.5-14.5)
[2018-03-10] MEDS: Multivitamin Vitamin B Complex (Nephro-Vite) Tab PO SCH (08:33)
[2018-03-10] MEDS: Sevelamer Carb 2.4 gm/Packet PO SCH ×5 (08:33→18:11)
[2018-03-10 08:41] LABS: ALBUMIN 3.1 g/dL (3.5-5.0); CALCIUM 9.1 mg/dl (8.6-10.4)
[2018-03-10] MEDS: Albuterol HFA 90 mcg/actuation (8 g) IH PRN (08:58)
[2018-03-10] MEDS: Fluticasone-Vilanterol 200/25mcg Diskus INH SCH (08:58)
[2018-03-10] MEDS: Epoetin Alfa 10,000 unit/ml Dialysis IV SCH (10:12)
[2018-03-10] MEDS: Paricalcitol 2 mcg/ml Inj IV SCH (10:13)
[2018-03-10] MEDS: Pantoprazole 40 mg EC Tab PO SCH ×2 (11:46→15:18)
--- NOTE | 2018-03-10 12:51 | CP.PCM.PN ---
Subjective - Date & Time of Evaluation Date of Evaluation: 03/10/18 Time of Evaluation: 12:15 - Subjective Subjective: No complaints. Objective - Vital Signs/Intake and Output Vital Signs (last 24 hours): Temp Pulse Resp BP Pulse Ox 97.4 F L 82 18 153/85 H 98 03/10/18 09:30 03/10/18 12:00 03/10/18 12:00 03/10/18 12:00 03/10/18 12:00 Intake and Output: 03/10/18 03/10/18 06:59 18:59 Intake Total 240 Output Total 300 Balance -60 - Medications Medications: Current Medications Albuterol (Ventolin Hfa 90 Mcg/Actuation (8 G)) 1 puff IH RQID PRN PRN Reason: Wheezing Last Admin: 03/10/18 08:58 Dose: 1 puff Amlodipine Besylate (Norvasc) 10 mg PO DAILY [facility] Last Admin: 03/10/18 11:46 Dose: Not Given Aspirin (Ecotrin) 81 mg PO DAILY [facility] Last Admin: 03/10/18 11:45 Dose: Not Given Carvedilol (Coreg) 12.5 mg PO BID [facility] Last Admin: 03/10/18 11:45 Dose: Not Given Cyclobenzaprine HCl (Flexeril) 10 mg PO Q8 PRN PRN Reason: Muscle spasm Last Admin: 03/08/18 17:42 Dose: 10 mg Epoetin Tito (Procrit) 10,000 unit IV MWF [facility] Last Admin: 03/10/18 10:12 Dose: 10,000 unit Ferrous Sulfate (Feosol) 325 mg PO TID [facility] Last Admin: 03/10/18 11:45 Dose: Not Given Fluticasone/Vilanterol (Breo Ellipta 200-25 Mcg Inh) 1 puff INH RQD [facility] Last Admin: 03/10/18 08:58 Dose: 1 puff Furosemide (Lasix) 40 mg PO BID [facility] Last Admin: 03/10/18 11:45 Dose: Not Given Gabapentin (Neurontin) 100 mg PO TID [facility] Last Admin: 03/10/18 11:45 Dose: Not Given Hydralazine HCl (Apresoline) 25 mg PO Q8 [facility] Last Admin: 03/10/18 06:48 Dose: 25 mg Insulin Aspart (Novolog) 0 unit SC [facility]; Protocol Last Admin: 03/10/18 07:33 Dose: Not Given Insulin Glargine (Lantus) 24 unit SC [facility] Last Admin: 03/09/18 22:45 Dose: 24 units Pantoprazole Sodium (Protonix Ec Tab) 40 mg PO DAILY [facility] Last Admin: 03/10/18 11:46 Dose: Not Given Paricalcitol (Zemplar) 2 mcg IV MWF [facility] Last Admin: 03/10/18 10:13 Dose: 2 mcg Rosuvastatin Calcium (Crestor) 5 mg PO HS [facility] Last Admin: 03/09/18 22:11 Dose: 5 mg Sevelamer Carbonate (Renvela) 2.4 gm PO TIDCC [facility] Last Admin: 03/10/18 08:33 Dose: 2.4 gm Vitamin B Complex/Vit C/Folic Acid (Nephro-Vince) 1 tab PO 0800 [facility] Last Admin: 03/10/18 08:33 Dose: 1 tab - Labs Labs: 03/10/18 07:43 03/10/18 07:43 PT 11.4 SECONDS (9.7-12.2) 02/24/18 00:56 INR 1.0 02/24/18 00:56 APTT 33 SECONDS (21-34) 02/24/18 00:56 - Head Exam Head Exam: ATRAUMATIC - Eye Exam Eye Exam: Normal appearance - ENT Exam ENT Exam: Mucous Membranes Dry - Respiratory Exam Respiratory Exam: NORMAL BREATHING PATTERN - GI/Abdominal Exam GI & Abdominal Exam: Normal Bowel Sounds Assessment and Plan (1) Anemia Assessment & Plan: anemia of CKD and chronic disease on EPO per renal transfusion support PRN outpatient screening colonoscopy Status: Acute
--- NOTE | 2018-03-10 13:29 | CP.PCM.CON ---
History of Present Illness - History of Present Illness History of Present Illness: Pulmonary follow up, Covering Dr Treadwell The patient was Seen/interviewed and examined by me at the bedside, Medical records reviewed and Management issues were discussed and formulated with the house staff. Events reviewed. Patient is a 52 year old female with a PMHx of HTN, DM type II on Dialysis, CABG, COPD, Hypercholesterolemia who was initially brought in due to elevated BP and headaches. Patient reports that her respiratory problems are an ongoing issue for her as she has asthma. She reports SOB and cough. Pt also indicates that the SOB is made worst while laying down. She uses at home pump and nebulizer solution. Patient is currently receiving Dialysis, states this is her 5th session. Chest Xray showed pulmonary vascular congestion. Pt denies chest pain. Admits to SOB, wheezing and cough. PMHx: HTN, DM type II on Dialysis, CABG, COPD, Hypercholesterolemia Surgical Hx: Bypass, Hysterectomy, Left brachio-cephalic AVF (02/17/2018), Permacath insertion (02/28/2018) Allergies: NKDA Meds: Albuterol, Breo Ellipta, Amlodipine, Carvedilol, Flexeril, Procrit, Feosol, Neurontin, Apresoline, Lantus, Novolog, Protonix, Crestor, Renvela, Vitamin B/Vit C/Folic Acid Social Hx: Patient denies tobacco and alcohol use. Patient afebrile and in no acute distress. Patient s/p hemodialysis. Reports SOB overnight, therefore used BiPAP which helped with breathing. Denies cough. Review of Systems - Constitutional Constitutional: absent: Chills - Cardiovascular Cardiovascular: absent: Chest Pain, Chest Pain at Rest, Chest Pain with Activity, Claudication - Respiratory Respiratory: Cough, Dyspnea, Dyspnea on Exertion. absent: Hemoptysis, Wheezing, Snoring - Gastrointestinal Gastrointestinal: Abdominal Pain. absent: Coffee Ground Emesis, Vomiting Past Patient History - Infectious Disease Hx of Infectious Diseases: None - Past Medical History & Family History Past Medical History?: Yes - Past Social History Smoking Status: Never Smoked - CARDIAC Hx Hypercholesterolemia: Yes Hx Hypertension: Yes - PULMONARY Hx Chronic Obstructive Pulmonary Disease (COPD): Yes - NEUROLOGICAL Hx Neurological Disorder: Yes Hx Syncope: Yes - HEENT Hx HEENT Problems: No - RENAL Hx Chronic Kidney Disease: No - ENDOCRINE/METABOLIC Hx Diabetes Mellitus Type 1: Yes - HEMATOLOGICAL/ONCOLOGICAL Hx Anemia: Yes - INTEGUMENTARY Hx Dermatological Problems: No - MUSCULOSKELETAL/RHEUMATOLOGICAL Hx Arthritis: Yes (KNEE; BACK) - GASTROINTESTINAL Hx Gastrointestinal Disorders: Yes Hx Gastroesophageal Reflux: Yes - GENITOURINARY/GYNECOLOGICAL Hx Genitourinary Disorders: No - PSYCHIATRIC Hx Substance Use: No - SURGICAL HISTORY Hx Coronary Artery Bypass Graft: Yes (09/19) - ANESTHESIA Hx Anesthesia: Yes Hx Anesthesia Reactions: No Hx Malignant Hyperthermia: No Meds Home Medications: Home Medication List Medication Instructions Recorded Confirmed Type Sevelamer Carbonate [Renvela] 2.4 gm PO TIDCC #90 packet 03/15/18 Rx amLODIPine [Norvasc] 10 mg PO DAILY #30 tab 03/15/18 Rx hydrALAZINE [Apresoline] 25 mg PO Q8 #90 tab 03/15/18 Rx Allergies/Adverse Reactions: Allergies Allergy/AdvReac Type Severity Reaction Status Date / Time No Known Allergies Allergy Verified 05/20/17 09:51 - Medications Medications: Current Medications Albuterol (Ventolin Hfa 90 Mcg/Actuation (8 G)) 1 puff IH RQID PRN PRN Reason: Wheezing Last Admin: 03/10/18 08:58 Dose: 1 puff Amlodipine Besylate (Norvasc) 10 mg PO DAILY [facility] Last Admin: 03/10/18 11:46 Dose: Not Given Aspirin (Ecotrin) 81 mg PO DAILY [facility] Last Admin: 03/10/18 11:45 Dose: Not Given Carvedilol (Coreg) 12.5 mg PO BID [facility] Last Admin: 03/10/18 11:45 Dose: Not Given Cyclobenzaprine HCl (Flexeril) 10 mg PO Q8 PRN PRN Reason: Muscle spasm Last Admin: 03/08/18 17:42 Dose: 10 mg Epoetin Tito (Procrit) 10,000 unit IV MWF [facility] Last Admin: 03/10/18 10:12 Dose: 10,000 unit Ferrous Sulfate (Feosol) 325 mg PO TID [facility] Last Admin: 03/10/18 11:45 Dose: Not Given Fluticasone/Vilanterol (Breo Ellipta 200-25 Mcg Inh) 1 puff INH RQD [facility] Last Admin: 03/10/18 08:58 Dose: 1 puff Furosemide (Lasix) 40 mg PO BID [facility] Last Admin: 03/10/18 11:45 Dose: Not Given Gabapentin (Neurontin) 100 mg PO TID [facility] Last Admin: 03/10/18 11:45 Dose: Not Given Hydralazine HCl (Apresoline) 25 mg PO Q8 [facility] Last Admin: 03/10/18 06:48 Dose: 25 mg Insulin Aspart (Novolog) 0 unit SC [facility]; Protocol Last Admin: 03/10/18 07:33 Dose: Not Given Insulin Glargine (Lantus) 24 unit SC [facility] Last Admin: 03/09/18 22:45 Dose: 24 units Pantoprazole Sodium (Protonix Ec Tab) 40 mg PO DAILY [facility] Last Admin: 03/10/18 11:46 Dose: Not Given Paricalcitol (Zemplar) 2 mcg IV MWF [facility] Last Admin: 03/10/18 10:13 Dose: 2 mcg Rosuvastatin Calcium (Crestor) 5 mg PO [facility] Last Admin: 03/09/18 22:11 Dose: 5 mg Sevelamer Carbonate (Renvela) 2.4 gm PO TIDCC [facility] Last Admin: 03/10/18 08:33 Dose: 2.4 gm Vitamin B Complex/Vit C/Folic Acid (Nephro-Vince) 1 tab PO 0800 [facility] Last Admin: 03/10/18 08:33 Dose: 1 tab Results - Vital Signs Recent Vital Signs: Last Vital Signs Temp 97.5 F L 03/10/18 12:30 Pulse 91 H 03/10/18 12:30 Resp 18 03/10/18 12:30 BP 156/75 H 03/10/18 12:30 Pulse Ox 98 03/10/18 12:30 - Labs Result Diagrams: 03/13/18 09:43 03/13/18 09:43 Labs: Laboratory Results - last 24 hr 03/09/18 03/09/18 03/10/18 17:09 21:37 07:43 WBC 8.0 RBC 3.55 L Hgb 8.9 L Hct 27.4 L MCV 77.2 L MCH 25.1 L MCHC 32.5 L RDW 18.4 H Plt Count 175 D MPV 8.8 Neut % (Auto) 68.7 Lymph % (Auto) 16.9 L Ward % (Auto) 9.3 Eos % (Auto) 4.3 H Baso % (Auto) 0.8 Neut # (Auto) 5.5 Lymph # (Auto) 1.3 Ward # (Auto) 0.7 Eos # (Auto) 0.3 Baso # (Auto) 0.1 Sodium Potassium Chloride Carbon Dioxide Anion Gap BUN Creatinine Est GFR ( Amer) Est GFR (Non-Af Amer) POC Glucose (mg/dL) 254 H Random Glucose Calcium Total Bilirubin AST ALT Alkaline Phosphatase Total Creatine Kinase 99 CK-MB (Mass) 2.27 Troponin I 0.0190 Total Protein Albumin Globulin Albumin/Globulin Ratio 03/10/18 03/10/18 07:43 11:30 WBC RBC Hgb Hct MCV MCH MCHC RDW Plt Count MPV Neut % (Auto) Lymph % (Auto) Ward % (Auto) Eos % (Auto) Baso % (Auto) Neut # (Auto) Lymph # (Auto) Ward # (Auto) Eos # (Auto) Baso # (Auto) Sodium 141 Potassium 4.1 Chloride 99 Carbon Dioxide 33 H Anion Gap 13 BUN 34 H Creatinine 3.9 H Est GFR ( Amer) 15 Est GFR (Non-Af Amer) 12 POC Glucose (mg/dL) 126 H Random Glucose 145 H Calcium 9.1 Total Bilirubin 0.3 AST 21 ALT 36 Alkaline Phosphatase 146 H Total Creatine Kinase CK-MB (Mass) Troponin I Total Protein 6.3 Albumin 3.1 L Globulin 3.2 Albumin/Globulin Ratio 1.0 Assessment & Plan (1) Fluid overload Status: Acute Priority: High (2) Acute pulmonary edema Status: Acute Priority: High (3) Acute respiratory distress Status: Acute Priority: High (4) Chr obstructive pulmonary disease w/ acute lower respiratory infxn Status: Acute Priority: High (5) BLAYNE (acute kidney injury) Status: Acute Priority: High - Assessment and Plan (Free Text) Assessment: - Symptoms are related to pulmonary edema - Continue current therapy of Albuterol, Breo - CXR after hemodialysis ordered for today. Will follow up results. - Continue BiPAP machine is patient is SOB.
--- NOTE | 2018-03-10 14:32 | RAD ---
HISTORY: Shortness of breath COMPARISON: 03/09/2018 TECHNIQUE: Chest PA and lateral FINDINGS: LINES AND TUBES: Right-sided dialysis catheter terminates at the cavoatrial junction.. LUNG AND PLEURA: There is redemonstration of diffuse haziness in the lungs with relative sparing of the left upper lobe. Persistent moderate pleural effusions. No pneumothorax. HEART AND MEDIASTINUM: Persistent moderate cardiomegaly. Status post CABG. The hilar and mediastinal contours are within normal limits. SKELETAL STRUCTURES: The bony structures are within normal limits for the patient's age. VISUALIZED UPPER ABDOMEN: Normal. OTHER FINDINGS: None. IMPRESSION: No change in congestive heart failure. The
--- NOTE | 2018-03-10 15:32 | CP.PCM.PN ---
Subjective - Date & Time of Evaluation Date of Evaluation: 03/10/18 Time of Evaluation: 08:00 - Subjective Subjective: less sob after HD denies chest pain weak nad Objective - Vital Signs/Intake and Output Vital Signs (last 24 hours): Temp Pulse Resp BP Pulse Ox 97.5 F L 91 H 18 156/75 H 98 03/10/18 12:30 03/10/18 12:30 03/10/18 12:30 03/10/18 12:30 03/10/18 12:30 Intake and Output: 03/10/18 03/10/18 06:59 18:59 Intake Total 240 Output Total 300 Balance -60 - Medications Medications: Current Medications Albuterol (Ventolin Hfa 90 Mcg/Actuation (8 G)) 1 puff IH RQID PRN PRN Reason: Wheezing Last Admin: 03/10/18 08:58 Dose: 1 puff Amlodipine Besylate (Norvasc) 10 mg PO DAILY [facility] Last Admin: 03/10/18 15:18 Dose: 10 mg Aspirin (Ecotrin) 81 mg PO DAILY [facility] Last Admin: 03/10/18 15:18 Dose: 81 mg Carvedilol (Coreg) 12.5 mg PO BID [facility] Last Admin: 03/10/18 11:45 Dose: Not Given Cyclobenzaprine HCl (Flexeril) 10 mg PO Q8 PRN PRN Reason: Muscle spasm Last Admin: 03/08/18 17:42 Dose: 10 mg Epoetin Tito (Procrit) 10,000 unit IV MWF [facility] Last Admin: 03/10/18 10:12 Dose: 10,000 unit Ferrous Sulfate (Feosol) 325 mg PO TID [facility] Last Admin: 03/10/18 15:20 Dose: 325 mg Fluticasone/Vilanterol (Breo Ellipta 200-25 Mcg Inh) 1 puff INH RQD [facility] Last Admin: 03/10/18 08:58 Dose: 1 puff Furosemide (Lasix) 40 mg PO BID [facility] Last Admin: 03/10/18 11:45 Dose: Not Given Gabapentin (Neurontin) 100 mg PO TID [facility] Last Admin: 03/10/18 15:18 Dose: 100 mg Hydralazine HCl (Apresoline) 25 mg PO Q8 [facility] Last Admin: 03/10/18 15:17 Dose: 25 mg Insulin Aspart (Novolog) 0 unit SC [facility]; Protocol Last Admin: 03/10/18 14:56 Dose: Not Given Insulin Glargine (Lantus) 24 unit SC [facility] Last Admin: 03/09/18 22:45 Dose: 24 units Pantoprazole Sodium (Protonix Ec Tab) 40 mg PO DAILY [facility] Last Admin: 03/10/18 15:18 Dose: 40 mg Paricalcitol (Zemplar) 2 mcg IV MWF [facility] Last Admin: 03/10/18 10:13 Dose: 2 mcg Rosuvastatin Calcium (Crestor) 5 mg PO [facility] Last Admin: 03/09/18 22:11 Dose: 5 mg Sevelamer Carbonate (Renvela) 2.4 gm PO TIDCC [facility] Last Admin: 03/10/18 15:17 Dose: 2.4 gm Vitamin B Complex/Vit C/Folic Acid (Nephro-Vince) 1 tab PO 0800 [facility] Last Admin: 03/10/18 08:33 Dose: 1 tab - Labs Labs: 03/10/18 07:43 03/10/18 07:43 PT 11.4 SECONDS (9.7-12.2) 02/24/18 00:56 INR 1.0 02/24/18 00:56 APTT 33 SECONDS (21-34) 02/24/18 00:56 - Constitutional Appears: Non-toxic, Chronically Ill - Head Exam Head Exam: NORMOCEPHALIC - Eye Exam Eye Exam: PERRL - ENT Exam ENT Exam: Mucous Membranes Dry - Neck Exam Neck Exam: absent: Lymphadenopathy - Respiratory Exam Respiratory Exam: Decreased Breath Sounds, Prolonged Expiratory Phase, Rales - Cardiovascular Exam Cardiovascular Exam: REGULAR RHYTHM, +S1, +S2 - GI/Abdominal Exam GI & Abdominal Exam: Distended, Soft. absent: Tenderness - Rectal Exam Rectal Exam: Deferred - Exam Exam: NORMAL INSPECTION Assessment and Plan (1) BLAYNE (acute kidney injury) Status: Acute (2) Hypertension Status: Chronic (3) CKD (chronic kidney disease) Status: Acute (4) Diabetes mellitus Status: Acute (5) Non-healing ulcer of foot Status: Acute (6) PVD (peripheral vascular disease) Status: Acute (7) Renal insufficiency Status: Acute (8) Diabetes mellitus type 2 in nonobese Status: Chronic - Assessment and Plan (Free Text) Assessment: cont rx CHF / volume overload- may need extra HD to discuss with dr kat
--- NOTE | 2018-03-10 17:07 | CP.PCM.PN ---
Subjective - Date & Time of Evaluation Date of Evaluation: 03/10/18 Time of Evaluation: 17:07 - Subjective Subjective: pt feeling slightly better, less sob, no cp Objective - Vital Signs/Intake and Output Vital Signs (last 24 hours): Temp Pulse Resp BP Pulse Ox 98.1 F 69 20 140/73 96 03/10/18 15:53 03/10/18 15:53 03/10/18 15:53 03/10/18 15:53 03/10/18 15:53 Intake and Output: 03/10/18 03/10/18 06:59 18:59 Intake Total 240 Output Total 300 Balance -60 - Medications Medications: Current Medications Albuterol (Ventolin Hfa 90 Mcg/Actuation (8 G)) 1 puff IH RQID PRN PRN Reason: Wheezing Last Admin: 03/10/18 08:58 Dose: 1 puff Amlodipine Besylate (Norvasc) 10 mg PO DAILY [facility] Last Admin: 03/10/18 15:18 Dose: 10 mg Aspirin (Ecotrin) 81 mg PO DAILY [facility] Last Admin: 03/10/18 15:18 Dose: 81 mg Carvedilol (Coreg) 12.5 mg PO BID [facility] Last Admin: 03/10/18 11:45 Dose: Not Given Cyclobenzaprine HCl (Flexeril) 10 mg PO Q8 PRN PRN Reason: Muscle spasm Last Admin: 03/08/18 17:42 Dose: 10 mg Epoetin Tito (Procrit) 10,000 unit IV MWF [facility] Last Admin: 03/10/18 10:12 Dose: 10,000 unit Ferrous Sulfate (Feosol) 325 mg PO TID [facility] Last Admin: 03/10/18 15:20 Dose: 325 mg Fluticasone/Vilanterol (Breo Ellipta 200-25 Mcg Inh) 1 puff INH RQD [facility] Last Admin: 03/10/18 08:58 Dose: 1 puff Furosemide (Lasix) 40 mg PO BID [facility] Last Admin: 03/10/18 11:45 Dose: Not Given Gabapentin (Neurontin) 100 mg PO TID [facility] Last Admin: 03/10/18 15:18 Dose: 100 mg Hydralazine HCl (Apresoline) 25 mg PO Q8 [facility] Last Admin: 03/10/18 15:17 Dose: 25 mg Insulin Aspart (Novolog) 0 unit SC ACHS [facility]; Protocol Last Admin: 03/10/18 14:56 Dose: Not Given Insulin Glargine (Lantus) 24 unit SC [facility] Last Admin: 03/09/18 22:45 Dose: 24 units Pantoprazole Sodium (Protonix Ec Tab) 40 mg PO DAILY [facility] Last Admin: 03/10/18 15:18 Dose: 40 mg Paricalcitol (Zemplar) 2 mcg IV MWF [facility] Last Admin: 03/10/18 10:13 Dose: 2 mcg Rosuvastatin Calcium (Crestor) 5 mg PO HS [facility] Last Admin: 03/09/18 22:11 Dose: 5 mg Sevelamer Carbonate (Renvela) 2.4 gm PO TIDCC [facility] Last Admin: 03/10/18 15:17 Dose: 2.4 gm Vitamin B Complex/Vit C/Folic Acid (Nephro-Vince) 1 tab PO 0800 [facility] Last Admin: 03/10/18 08:33 Dose: 1 tab - Labs Labs: 03/10/18 07:43 03/10/18 07:43 PT 11.4 SECONDS (9.7-12.2) 02/24/18 00:56 INR 1.0 02/24/18 00:56 APTT 33 SECONDS (21-34) 02/24/18 00:56 - Constitutional Appears: Well, Non-toxic - Head Exam Head Exam: ATRAUMATIC, NORMAL INSPECTION, NORMOCEPHALIC - Eye Exam Eye Exam: Conjunctival injection, EOMI, Normal appearance, PERRL Pupil Exam: NORMAL ACCOMODATION - ENT Exam ENT Exam: Mucous Membranes Moist - Neck Exam Neck Exam: Full ROM, Normal Inspection - Respiratory Exam Respiratory Exam: Decreased Breath Sounds, Clear to Ausculation Bilateral, NORMAL BREATHING PATTERN - Cardiovascular Exam Cardiovascular Exam: REGULAR RHYTHM, +S1, +S2 - GI/Abdominal Exam GI & Abdominal Exam: Soft, Normal Bowel Sounds - Rectal Exam Rectal Exam: Deferred - Extremities Exam Extremities Exam: Full ROM, Normal Inspection - Back Exam Back Exam: NORMAL INSPECTION - Neurological Exam Neurological Exam: Alert, Awake, CN II-XII Intact, Oriented x3 - Psychiatric Exam Psychiatric exam: Normal Affect, Normal Mood - Skin Skin Exam: Normal Color Additional comments: dressing to rt foot+ Assessment and Plan - Assessment and Plan (Free Text) Assessment: 52 yo GF with pmh/o htn, dm, hld, cads/p cabg, rt foot ulcer, nephrotic range proteinuria, with worsening renal function started on hD last week tuesday 1. BLAYNE on CKD-4 vs progression to ESRD 2. Anmeia sec to ckd and / or fe deficiency 3. HTN 4. DM 5. Fluid over load will continue hd 3 x a week, MWF, restrict fluids to 1 lit/day increase lasix to 60 mg po bid c/w current meds, coreg, hydralazine, amlodipine, epogen, zemplar will schedule for extra hd on tuesday
[2018-03-10] MEDS: (Lantus) Insulin Glargine, Recombinant SC SCH (21:48)
[2018-03-11] MEDS: (Novolog) Insulin Aspart, Recombinant 100 u/ml 10 ml vial SC SCH ×4 (08:10→22:44)
[2018-03-11] MEDS: Sevelamer Carb 2.4 gm/Packet PO SCH ×3 (08:11→18:52)
[2018-03-11] MEDS: Multivitamin Vitamin B Complex (Nephro-Vite) Tab PO SCH (08:11)
--- NOTE | 2018-03-11 09:06 | CP.PCM.PN ---
Subjective - Date & Time of Evaluation Date of Evaluation: 03/11/18 Time of Evaluation: 09:04 - Subjective Subjective: Podiatry Progress notes for attending Dr. Mcmanus 52 year old female seen and evaluated at bedside at dialysis unit for right lateral foot ulceration. Patient resting comfortably, NAD. Patient states that there is no complaints to her right foot since the last visit. Wound w/dressing looks clean/dry/intact. Patient denies any pain to right foot. patient denies any recent F/N/V/C or SOB since the last visit. Patient denies any other pedal complaints at this time. Objective - Vital Signs/Intake and Output Vital Signs (last 24 hours): Temp Pulse Resp BP Pulse Ox 98.1 F 81 20 138/72 95 03/11/18 07:00 03/11/18 07:00 03/11/18 07:00 03/11/18 07:00 03/11/18 07:00 Intake and Output: 03/11/18 03/11/18 06:59 18:59 Intake Total 200 Output Total 350 Balance -150 - Medications Medications: Current Medications Albuterol (Ventolin Hfa 90 Mcg/Actuation (8 G)) 1 puff IH RQID PRN PRN Reason: Wheezing Last Admin: 03/10/18 08:58 Dose: 1 puff Amlodipine Besylate (Norvasc) 10 mg PO DAILY [facility] Last Admin: 03/10/18 15:18 Dose: 10 mg Aspirin (Ecotrin) 81 mg PO DAILY [facility] Last Admin: 03/10/18 15:18 Dose: 81 mg Carvedilol (Coreg) 12.5 mg PO BID [facility] Last Admin: 03/10/18 18:13 Dose: 12.5 mg Cyclobenzaprine HCl (Flexeril) 10 mg PO Q8 PRN PRN Reason: Muscle spasm Last Admin: 03/08/18 17:42 Dose: 10 mg Epoetin Tito (Procrit) 10,000 unit IV MWF [facility] Last Admin: 03/10/18 10:12 Dose: 10,000 unit Ferrous Sulfate (Feosol) 325 mg PO TID [facility] Last Admin: 03/10/18 18:13 Dose: 325 mg Fluticasone/Vilanterol (Breo Ellipta 200-25 Mcg Inh) 1 puff INH RQD [facility] Last Admin: 03/10/18 08:58 Dose: 1 puff Furosemide (Lasix) 40 mg PO BID [facility] Last Admin: 03/10/18 18:14 Dose: 40 mg Gabapentin (Neurontin) 100 mg PO TID [facility] Last Admin: 03/10/18 18:13 Dose: 100 mg Hydralazine HCl (Apresoline) 25 mg PO Q8 [facility] Last Admin: 03/11/18 05:53 Dose: 25 mg Insulin Aspart (Novolog) 0 unit SC ACHS [facility]; Protocol Last Admin: 03/11/18 08:10 Dose: 4 units Insulin Glargine (Lantus) 24 unit SC [facility] Last Admin: 03/10/18 21:48 Dose: 24 units Pantoprazole Sodium (Protonix Ec Tab) 40 mg PO DAILY [facility] Last Admin: 03/10/18 15:18 Dose: 40 mg Paricalcitol (Zemplar) 2 mcg IV MWF [facility] Last Admin: 03/10/18 10:13 Dose: 2 mcg Rosuvastatin Calcium (Crestor) 5 mg PO [facility] Last Admin: 03/10/18 21:19 Dose: 5 mg Sevelamer Carbonate (Renvela) 2.4 gm PO TIDCC [facility] Last Admin: 03/11/18 08:11 Dose: 2.4 gm Vitamin B Complex/Vit C/Folic Acid (Nephro-Vince) 1 tab PO 0800 [facility] Last Admin: 03/11/18 08:11 Dose: 1 tab - Labs Labs: 03/10/18 07:43 03/10/18 07:43 PT 11.4 SECONDS (9.7-12.2) 02/24/18 00:56 INR 1.0 02/24/18 00:56 APTT 33 SECONDS (21-34) 02/24/18 00:56 - Constitutional Appears: Well, Non-toxic, No Acute Distress - Head Exam Head Exam: ATRAUMATIC, NORMOCEPHALIC - Extremities Exam Additional comments: B/L LE focused exam: Vasc: DP/PT non-palpable b/l, temperature gradient cool to cool from proximal to distal b/l, Cap refill delayed to digits > 4 sec, no edema noted b/l. Neuro: Gross sensation intact, Protective sensation diminished Derm: Healing circular ulceration noted to the lateral aspect of right 5th metatarsal base with overlying hyperkeratosis and hyperpigmentation. No d rainage, No erythema, No fluctanance noted, No streaking. No clinical signs of infection. MSK: No pain on palpation noted to ulceration. Muscle strength 5/5 for all muscle groups. - Neurological Exam Neurological Exam: Alert, Awake, Oriented x3 - Psychiatric Exam Psychiatric exam: Normal Affect, Normal Mood Assessment and Plan - Assessment and Plan (Free Text) Assessment: 52 year old female with healed right foot ulceration Plan: Patient seen and evaluated alongside attending, Dr. Mcmanus Chart, labs and vitals reviewed; Afebrile, no leukocytosis Wound dressed using DSD and betadine. Continue local wound care - betadine, DSD Wound stable from podiatry standpoint Podiatry will continue to follow up the patient while in house.
[2018-03-11] MEDS: Fluticasone-Vilanterol 200/25mcg Diskus INH SCH (09:07)
[2018-03-11] MEDS: Albuterol HFA 90 mcg/actuation (8 g) IH PRN ×2 (09:08→19:29)
[2018-03-11] MEDS: Pantoprazole 40 mg EC Tab PO SCH ×2 (11:09→13:18)
--- NOTE | 2018-03-11 15:17 | CP.PCM.PN ---
Subjective - Date & Time of Evaluation Date of Evaluation: 03/11/18 Time of Evaluation: 15:16 - Subjective Subjective: pt is feeling better after hemodailysis, pt is sleeping on her back s/p hd today, UF 4000 ml Objective - Vital Signs/Intake and Output Vital Signs (last 24 hours): Temp Pulse Resp BP Pulse Ox 97.9 F 85 18 158/75 H 100 03/11/18 09:40 03/11/18 13:26 03/11/18 13:26 03/11/18 13:26 03/11/18 13:26 Intake and Output: 03/11/18 03/11/18 06:59 18:59 Intake Total 200 Output Total 350 Balance -150 - Medications Medications: Current Medications Acetaminophen (Tylenol 325mg Tab) 650 mg PO Q6 PRN PRN Reason: Anaphylaxis Last Admin: 03/11/18 11:53 Dose: 650 mg Albuterol (Ventolin Hfa 90 Mcg/Actuation (8 G)) 1 puff IH RQID PRN PRN Reason: Wheezing Last Admin: 03/11/18 09:08 Dose: 1 puff Amlodipine Besylate (Norvasc) 10 mg PO DAILY [facility] Last Admin: 03/11/18 13:19 Dose: 10 mg Aspirin (Ecotrin) 81 mg PO DAILY [facility] Last Admin: 03/11/18 13:19 Dose: 81 mg Carvedilol (Coreg) 12.5 mg PO BID [facility] Last Admin: 03/11/18 10:00 Dose: Not Given Cyclobenzaprine HCl (Flexeril) 10 mg PO Q8 PRN PRN Reason: Muscle spasm Last Admin: 03/08/18 17:42 Dose: 10 mg Epoetin Tito (Procrit) 10,000 unit IV MWF [facility] Last Admin: 03/10/18 10:12 Dose: 10,000 unit Ferrous Sulfate (Feosol) 325 mg PO TID [facility] Last Admin: 03/11/18 13:19 Dose: 325 mg Fluticasone/Vilanterol (Breo Ellipta 200-25 Mcg Inh) 1 puff INH RQD [facility] Last Admin: 03/11/18 09:07 Dose: 1 puff Furosemide (Lasix) 40 mg PO BID [facility] Last Admin: 03/11/18 11:09 Dose: Not Given Gabapentin (Neurontin) 100 mg PO TID [facility] Last Admin: 03/11/18 13:19 Dose: 100 mg Hydralazine HCl (Apresoline) 25 mg PO Q8 [facility] Last Admin: 03/11/18 13:19 Dose: 25 mg Insulin Aspart (Novolog) 0 unit SC ACHS [facility]; Protocol Last Admin: 03/11/18 12:57 Dose: Not Given Insulin Glargine (Lantus) 24 unit SC [facility] Last Admin: 03/10/18 21:48 Dose: 24 units Pantoprazole Sodium (Protonix Ec Tab) 40 mg PO DAILY [facility] Last Admin: 03/11/18 13:18 Dose: 40 mg Paricalcitol (Zemplar) 2 mcg IV MWF [facility] Last Admin: 03/10/18 10:13 Dose: 2 mcg Rosuvastatin Calcium (Crestor) 5 mg PO [facility] Last Admin: 03/10/18 21:19 Dose: 5 mg Sevelamer Carbonate (Renvela) 2.4 gm PO TIDCC [facility] Last Admin: 03/11/18 11:09 Dose: Not Given Vitamin B Complex/Vit C/Folic Acid (Nephro-Vince) 1 tab PO 0800 [facility] Last Admin: 03/11/18 08:11 Dose: 1 tab - Labs Labs: 03/10/18 07:43 03/10/18 07:43 PT 11.4 SECONDS (9.7-12.2) 02/24/18 00:56 INR 1.0 02/24/18 00:56 APTT 33 SECONDS (21-34) 02/24/18 00:56 - Constitutional Appears: Well, Non-toxic, No Acute Distress - Head Exam Head Exam: ATRAUMATIC, NORMAL INSPECTION, NORMOCEPHALIC - Eye Exam Eye Exam: EOMI, Normal appearance, PERRL Pupil Exam: NORMAL ACCOMODATION, PERRL - ENT Exam ENT Exam: Mucous Membranes Moist - Neck Exam Neck Exam: Normal Inspection - Respiratory Exam Respiratory Exam: Clear to Ausculation Bilateral, NORMAL BREATHING PATTERN - Cardiovascular Exam Cardiovascular Exam: REGULAR RHYTHM, +S1, +S2 - GI/Abdominal Exam GI & Abdominal Exam: Soft, Normal Bowel Sounds - Rectal Exam Rectal Exam: Deferred - Extremities Exam Extremities Exam: Full ROM, Normal Inspection - Back Exam Additional comments: dressing to rt foot+ - Neurological Exam Neurological Exam: Alert, Awake, CN II-XII Intact, Oriented x3 - Skin Skin Exam: Normal Color Assessment and Plan - Assessment and Plan (Free Text) Assessment: 52 yo GF with pmh/o htn, dm, hld, cads/p cabg, rt foot ulcer, nephrotic range proteinuria, with worsening renal function started on hD last week tuesday 1. BLAYNE on CKD-4 vs progression to ESRD 2. Anmeia sec to ckd and / or fe deficiency 3. HTN 4. DM 5. Fluid over load will continue hd 3 x a week, MWF, restrict fluids to 1 lit/day increase lasix to 60 mg po bid c/w current meds, coreg, hydralazine, amlodipine, epogen, zemplar will schedule for extra hd today, had a uf about 4 lit
[2018-03-11] MEDS: (Lantus) Insulin Glargine, Recombinant SC SCH (22:43)
--- NOTE | 2018-03-11 23:20 | CP.PCM.PN ---
Subjective - Date & Time of Evaluation Date of Evaluation: 03/11/18 Time of Evaluation: 22:00 - Subjective Subjective: Pulmonary follow up, Covering Dr Treadwell The patient was Seen/interviewed and examined by me at the bedside, Medical records reviewed and Management issues were discussed and formulated with the house staff. Events reviewed. Patient afebrile and in no acute distress. Patient s/p hemodialysis. Reports SOB overnight, therefore used BiPAP which helped with breathing. Denies cough. Objective - Vital Signs/Intake and Output Vital Signs (last 24 hours): Temp Pulse Resp BP Pulse Ox 98.1 F 83 20 132/76 99 03/11/18 15:41 03/11/18 16:12 03/11/18 15:41 03/11/18 18:52 03/11/18 15:41 - Medications Medications: Current Medications Acetaminophen (Tylenol 325mg Tab) 650 mg PO Q6 PRN PRN Reason: Anaphylaxis Last Admin: 03/11/18 11:53 Dose: 650 mg Albuterol (Ventolin Hfa 90 Mcg/Actuation (8 G)) 1 puff IH RQID PRN PRN Reason: Wheezing Last Admin: 03/11/18 19:29 Dose: 1 puff Amlodipine Besylate (Norvasc) 10 mg PO DAILY [facility] Last Admin: 03/11/18 13:19 Dose: 10 mg Aspirin (Ecotrin) 81 mg PO DAILY [facility] Last Admin: 03/11/18 13:19 Dose: 81 mg Carvedilol (Coreg) 12.5 mg PO BID [facility] Last Admin: 03/11/18 18:51 Dose: 12.5 mg Cyclobenzaprine HCl (Flexeril) 10 mg PO Q8 PRN PRN Reason: Muscle spasm Last Admin: 03/08/18 17:42 Dose: 10 mg Epoetin Tito (Procrit) 10,000 unit IV MWF [facility] Last Admin: 03/10/18 10:12 Dose: 10,000 unit Ferrous Sulfate (Feosol) 325 mg PO TID [facility] Last Admin: 03/11/18 20:25 Dose: 325 mg Fluticasone/Vilanterol (Breo Ellipta 200-25 Mcg Inh) 1 puff INH RQD [facility] Last Admin: 03/11/18 09:07 Dose: 1 puff Furosemide (Lasix) 40 mg PO BID [facility] Last Admin: 03/11/18 18:52 Dose: 40 mg Gabapentin (Neurontin) 100 mg PO TID [facility] Last Admin: 03/11/18 18:52 Dose: 100 mg Hydralazine HCl (Apresoline) 25 mg PO Q8 [facility] Last Admin: 03/11/18 22:43 Dose: 25 mg Insulin Aspart (Novolog) 0 unit SC ACHS [facility]; Protocol Last Admin: 03/11/18 22:44 Dose: Not Given Pantoprazole Sodium (Protonix Ec Tab) 40 mg PO DAILY [facility] Last Admin: 03/11/18 13:18 Dose: 40 mg Paricalcitol (Zemplar) 2 mcg IV MWF [facility] Last Admin: 03/10/18 10:13 Dose: 2 mcg Rosuvastatin Calcium (Crestor) 5 mg PO HS [facility] Last Admin: 03/11/18 22:43 Dose: 5 mg Sevelamer Carbonate (Renvela) 2.4 gm PO TIDCC [facility] Last Admin: 03/11/18 18:52 Dose: 2.4 gm Vitamin B Complex/Vit C/Folic Acid (Nephro-Vince) 1 tab PO 0800 [facility] Last Admin: 03/11/18 08:11 Dose: 1 tab - Labs Labs: 03/10/18 07:43 03/10/18 07:43 PT 11.4 SECONDS (9.7-12.2) 02/24/18 00:56 INR 1.0 02/24/18 00:56 APTT 33 SECONDS (21-34) 02/24/18 00:56 - Head Exam Head Exam: ATRAUMATIC, NORMAL INSPECTION, NORMOCEPHALIC - Eye Exam Eye Exam: EOMI, Normal appearance Pupil Exam: NORMAL ACCOMODATION - ENT Exam ENT Exam: Mucous Membranes Moist, Normal Exam - Neck Exam Neck Exam: Normal Inspection - Respiratory Exam Respiratory Exam: Decreased Breath Sounds, Prolonged Expiratory Phase, Rales, Rhonchi, Respiratory Distress (minimal). absent: Accessory Muscle Use, Chest Wall Tenderness, Clear to Ausculation Bilateral, Wheezes - GI/Abdominal Exam GI & Abdominal Exam: Soft, Normal Bowel Sounds - Extremities Exam Extremities Exam: Full ROM, Pedal Edema. absent: Calf Tenderness, Joint Swelling, Normal Inspection - Back Exam Back Exam: absent: CVA tenderness (L), CVA tenderness (R) - Neurological Exam Neurological Exam: Alert, Altered, Awake Assessment and Plan (1) Acute pulmonary edema Status: Acute (2) Acute respiratory distress Status: Acute (3) Anemia Status: Acute (4) Chr obstructive pulmonary disease w/ acute lower respiratory infxn Status: Acute (5) Fluid overload Status: Acute - Assessment and Plan (Free Text) Assessment: PLAN - Continue current therapy of Albuterol, Breo - CXR after hemodialysis ordered for today. Will follow up results. - Continue BiPAP machine is patient is SOB.
[2018-03-12] MEDS: Sevelamer Carb 2.4 gm/Packet PO SCH ×3 (08:53→17:36)
[2018-03-12] MEDS: (Novolog) Insulin Aspart, Recombinant 100 u/ml 10 ml vial SC SCH ×4 (08:53→21:48)
[2018-03-12] MEDS: Multivitamin Vitamin B Complex (Nephro-Vite) Tab PO SCH (08:53)
[2018-03-12] MEDS: Pantoprazole 40 mg EC Tab PO SCH (09:12)
--- NOTE | 2018-03-12 12:22 | CP.PCM.PN ---
Subjective - Date & Time of Evaluation Date of Evaluation: 03/12/18 Time of Evaluation: 12:17 - Subjective Subjective: Pulmonary Follow up, Covering Dr Treadwell The patient was Seen/interviewed and examined by me at the bedside, Events reviewed reason for consultation: shortness of breath Patient is a 52 year old female with a PMHx of HTN, DM type II on Dialysis, CABG, COPD, Hypercholesterolemia who was initially brought in due to elevated BP and headaches. Patient reports that her respiratory problems are an ongoing issue for her as she has asthma. She reports SOB and cough. Pt also indicates that the SOB is made worst while laying down. She uses at home pump and nebulizer solution. Patient is currently receiving Dialysis, states this is her 5th session. Chest Xray showed pulmonary vascular congestion. Afebrile Comfortable, and in no acute distress. Adequate saturation 94-97% on Nasal cannula Nocturnal BIPAP Patient states SOB is improving. Denies any Chest pain, palpitations or cough. Last HD yesterday, UF 4000 ml On Exam, Improved signs of fluid overload Objective - Vital Signs/Intake and Output Vital Signs (last 24 hours): Temp Pulse Resp BP Pulse Ox 98.4 F 80 20 157/71 H 97 03/12/18 07:00 03/12/18 07:00 03/12/18 07:00 03/12/18 09:12 03/12/18 07:00 - Medications Medications: Current Medications Acetaminophen (Tylenol 325mg Tab) 650 mg PO Q6 PRN PRN Reason: Anaphylaxis Last Admin: 03/11/18 11:53 Dose: 650 mg Albuterol (Ventolin Hfa 90 Mcg/Actuation (8 G)) 1 puff IH RQID PRN PRN Reason: Wheezing Last Admin: 03/11/18 19:29 Dose: 1 puff Amlodipine Besylate (Norvasc) 10 mg PO DAILY [facility] Last Admin: 03/12/18 09:12 Dose: 10 mg Aspirin (Ecotrin) 81 mg PO DAILY [facility] Last Admin: 03/12/18 09:12 Dose: 81 mg Carvedilol (Coreg) 12.5 mg PO BID [facility] Last Admin: 03/12/18 09:12 Dose: 12.5 mg Cyclobenzaprine HCl (Flexeril) 10 mg PO Q8 PRN PRN Reason: Muscle spasm Last Admin: 03/08/18 17:42 Dose: 10 mg Epoetin Tito (Procrit) 10,000 unit IV MWF [facility] Last Admin: 03/10/18 10:12 Dose: 10,000 unit Ferrous Sulfate (Feosol) 325 mg PO TID [facility] Last Admin: 03/12/18 09:11 Dose: 325 mg Fluticasone/Vilanterol (Breo Ellipta 200-25 Mcg Inh) 1 puff INH RQD [facility] Last Admin: 03/11/18 09:07 Dose: 1 puff Furosemide (Lasix) 40 mg PO BID [facility] Last Admin: 03/12/18 09:11 Dose: 40 mg Gabapentin (Neurontin) 100 mg PO TID [facility] Last Admin: 03/12/18 09:12 Dose: 100 mg Hydralazine HCl (Apresoline) 25 mg PO Q8 [facility] Last Admin: 03/12/18 05:16 Dose: 25 mg Insulin Aspart (Novolog) 0 unit SC ACHS [facility]; Protocol Last Admin: 03/12/18 08:53 Dose: 2 units Pantoprazole Sodium (Protonix Ec Tab) 40 mg PO DAILY [facility] Last Admin: 03/12/18 09:12 Dose: 40 mg Paricalcitol (Zemplar) 2 mcg IV MWF [facility] Last Admin: 03/10/18 10:13 Dose: 2 mcg Rosuvastatin Calcium (Crestor) 5 mg PO HS [facility] Last Admin: 03/11/18 22:43 Dose: 5 mg Sevelamer Carbonate (Renvela) 2.4 gm PO TIDCC [facility] Last Admin: 03/12/18 08:53 Dose: 2.4 gm Vitamin B Complex/Vit C/Folic Acid (Nephro-Vince) 1 tab PO 0800 [facility] Last Admin: 03/12/18 08:53 Dose: 1 tab - Labs Labs: 03/10/18 07:43 03/10/18 07:43 PT 11.4 SECONDS (9.7-12.2) 02/24/18 00:56 INR 1.0 02/24/18 00:56 APTT 33 SECONDS (21-34) 02/24/18 00:56 - Constitutional Appears: Well, Non-toxic, No Acute Distress - Head Exam Head Exam: ATRAUMATIC, NORMAL INSPECTION, NORMOCEPHALIC - Eye Exam Eye Exam: EOMI, Normal appearance Pupil Exam: NORMAL ACCOMODATION, PERRL - ENT Exam ENT Exam: Mucous Membranes Moist, Normal Exam - Respiratory Exam Respiratory Exam: Decreased Breath Sounds, Rales, Rhonchi, NORMAL BREATHING PATTERN. absent: Chest Wall Tenderness, Clear to Ausculation Bilateral, Wheezes - Cardiovascular Exam Cardiovascular Exam: REGULAR RHYTHM, RRR. absent: Bradycardia, Tachycardia, JVD - GI/Abdominal Exam GI & Abdominal Exam: Distended, Soft, Normal Bowel Sounds. absent: Firm, Guarding, Rigid, Tenderness - Back Exam Back Exam: absent: CVA tenderness (L), CVA tenderness (R) - Neurological Exam Neurological Exam: Alert, Awake, CN II-XII Intact, Normal Gait, Oriented x3. absent: Motor Sensory Deficit Assessment and Plan (1) Acute respiratory distress Status: Acute (2) Acute pulmonary edema Status: Acute (3) Chr obstructive pulmonary disease w/ acute lower respiratory infxn Status: Acute - Assessment and Plan (Free Text) Assessment: - Continue to optimize fluid status via HD with UF - Symptoms are related to pulmonary edema - Continue current bronchodilators therapy of Albuterol 1 puff IH RQID PRN - Continue Breo Ellipta 200-25 Mcg Inh 1 puff INH RQD [facility] - CXR in AM
--- NOTE | 2018-03-12 16:50 | CP.PCM.PN ---
Subjective - Date & Time of Evaluation Date of Evaluation: 03/12/18 Time of Evaluation: 09:00 - Subjective Subjective: less sob no fever awake alert nad awaiting placement Objective - Vital Signs/Intake and Output Vital Signs (last 24 hours): Temp Pulse Resp BP Pulse Ox 98.2 F 81 20 134/69 98 03/12/18 15:15 03/12/18 15:15 03/12/18 15:15 03/12/18 15:15 03/12/18 15:15 Intake and Output: 03/12/18 03/12/18 06:59 18:59 Intake Total 400 Balance 400 - Medications Medications: Current Medications Acetaminophen (Tylenol 325mg Tab) 650 mg PO Q6 PRN PRN Reason: Anaphylaxis Last Admin: 03/11/18 11:53 Dose: 650 mg Albuterol (Ventolin Hfa 90 Mcg/Actuation (8 G)) 1 puff IH RQID PRN PRN Reason: Wheezing Last Admin: 03/11/18 19:29 Dose: 1 puff Amlodipine Besylate (Norvasc) 10 mg PO DAILY [facility] Aspirin (Ecotrin) 81 mg PO DAILY [facility] Last Admin: 03/12/18 09:12 Dose: 81 mg Carvedilol (Coreg) 3.125 mg PO BID [facility] Cyclobenzaprine HCl (Flexeril) 10 mg PO Q8 PRN PRN Reason: Muscle spasm Last Admin: 03/08/18 17:42 Dose: 10 mg Epoetin Tito (Procrit) 10,000 unit IV MWF [facility] Last Admin: 03/10/18 10:12 Dose: 10,000 unit Ferrous Sulfate (Feosol) 325 mg PO TID [facility] Last Admin: 03/12/18 13:52 Dose: 325 mg Fluticasone/Vilanterol (Breo Ellipta 200-25 Mcg Inh) 1 puff INH RQD [facility] Last Admin: 03/11/18 09:07 Dose: 1 puff Furosemide (Lasix) 40 mg PO BID [facility] Last Admin: 03/12/18 09:11 Dose: 40 mg Gabapentin (Neurontin) 100 mg PO TID [facility] Last Admin: 03/12/18 13:52 Dose: 100 mg Hydralazine HCl (Apresoline) 25 mg PO Q8 [facility] Last Admin: 03/12/18 13:52 Dose: 25 mg Insulin Aspart (Novolog) 0 unit SC ACHS [facility]; Protocol Last Admin: 03/12/18 12:44 Dose: 4 units Insulin Glargine (Lantus) 24 unit SC [facility] Pantoprazole Sodium (Protonix Ec Tab) 40 mg PO DAILY [facility] Last Admin: 03/12/18 09:12 Dose: 40 mg Paricalcitol (Zemplar) 2 mcg IV MWF [facility] Last Admin: 03/10/18 10:13 Dose: 2 mcg Rosuvastatin Calcium (Crestor) 5 mg PO [facility] Last Admin: 03/11/18 22:43 Dose: 5 mg Senna/Docusate Sodium (Senokot S 50 Mg-8.6 Mg) 1 tab PO [facility] Sevelamer Carbonate (Renvela) 2.4 gm PO TIDCC [facility] Last Admin: 03/12/18 12:44 Dose: 2.4 gm Vitamin B Complex/Vit C/Folic Acid (Nephro-Vince) 1 tab PO 0800 [facility] Last Admin: 03/12/18 08:53 Dose: 1 tab - Labs Labs: 03/10/18 07:43 03/10/18 07:43 PT 11.4 SECONDS (9.7-12.2) 02/24/18 00:56 INR 1.0 02/24/18 00:56 APTT 33 SECONDS (21-34) 02/24/18 00:56 - Constitutional Appears: Non-toxic, Chronically Ill - Head Exam Head Exam: NORMOCEPHALIC - Eye Exam Eye Exam: PERRL - ENT Exam ENT Exam: Mucous Membranes Dry - Neck Exam Neck Exam: absent: Lymphadenopathy - Respiratory Exam Respiratory Exam: Decreased Breath Sounds - Cardiovascular Exam Cardiovascular Exam: REGULAR RHYTHM - GI/Abdominal Exam GI & Abdominal Exam: Distended, Soft - Rectal Exam Rectal Exam: Deferred - Exam Exam: NORMAL INSPECTION - Extremities Exam Extremities Exam: absent: Pedal Edema - Back Exam Back Exam: absent: CVA tenderness (L), CVA tenderness (R) - Neurological Exam Neurological Exam: Alert, Awake - Psychiatric Exam Psychiatric exam: Depressed Assessment and Plan (1) BLAYNE (acute kidney injury) Status: Acute (2) Hypertension Status: Chronic (3) CKD (chronic kidney disease) Status: Acute (4) Diabetes mellitus Status: Acute (5) Non-healing ulcer of foot Status: Acute (6) PVD (peripheral vascular disease) Status: Acute (7) Renal insufficiency Status: Acute (8) Diabetes mellitus type 2 in nonobese Status: Chronic - Assessment and Plan (Free Text) Assessment: cont rx as ordered
--- NOTE | 2018-03-12 17:11 | CP.PCM.PN ---
Subjective - Date & Time of Evaluation Date of Evaluation: 03/12/18 Time of Evaluation: 17:10 - Subjective Subjective: pt is seen and examined, pt is feeling better, no sob, no cp, s/p hd yesterday, had auf about 4 lit for hd in am Objective - Vital Signs/Intake and Output Vital Signs (last 24 hours): Temp Pulse Resp BP Pulse Ox 98.2 F 81 20 134/69 98 03/12/18 15:15 03/12/18 15:15 03/12/18 15:15 03/12/18 15:15 03/12/18 15:15 Intake and Output: 03/12/18 03/12/18 06:59 18:59 Intake Total 400 Balance 400 - Medications Medications: Current Medications Acetaminophen (Tylenol 325mg Tab) 650 mg PO Q6 PRN PRN Reason: Anaphylaxis Last Admin: 03/11/18 11:53 Dose: 650 mg Albuterol (Ventolin Hfa 90 Mcg/Actuation (8 G)) 1 puff IH RQID PRN PRN Reason: Wheezing Last Admin: 03/11/18 19:29 Dose: 1 puff Amlodipine Besylate (Norvasc) 10 mg PO DAILY [facility] Aspirin (Ecotrin) 81 mg PO DAILY [facility] Last Admin: 03/12/18 09:12 Dose: 81 mg Carvedilol (Coreg) 3.125 mg PO BID [facility] Cyclobenzaprine HCl (Flexeril) 10 mg PO Q8 PRN PRN Reason: Muscle spasm Last Admin: 03/08/18 17:42 Dose: 10 mg Epoetin Tito (Procrit) 10,000 unit IV MWF [facility] Last Admin: 03/10/18 10:12 Dose: 10,000 unit Ferrous Sulfate (Feosol) 325 mg PO TID [facility] Last Admin: 03/12/18 13:52 Dose: 325 mg Fluticasone/Vilanterol (Breo Ellipta 200-25 Mcg Inh) 1 puff INH RQD [facility] Last Admin: 03/11/18 09:07 Dose: 1 puff Furosemide (Lasix) 40 mg PO BID [facility] Last Admin: 03/12/18 09:11 Dose: 40 mg Gabapentin (Neurontin) 100 mg PO TID [facility] Last Admin: 03/12/18 13:52 Dose: 100 mg Hydralazine HCl (Apresoline) 25 mg PO Q8 [facility] Last Admin: 03/12/18 13:52 Dose: 25 mg Insulin Aspart (Novolog) 0 unit SC [facility]; Protocol Last Admin: 03/12/18 12:44 Dose: 4 units Insulin Glargine (Lantus) [address] [facility] Pantoprazole Sodium (Protonix Ec Tab) 40 mg PO DAILY [facility] Last Admin: 03/12/18 09:12 Dose: 40 mg Paricalcitol (Zemplar) 2 mcg IV MWF [facility] Last Admin: 03/10/18 10:13 Dose: 2 mcg Rosuvastatin Calcium (Crestor) [address] [facility] Last Admin: 03/11/18 22:43 Dose: 5 mg Senna/Docusate Sodium (Senokot S 50 Mg-8.6 Mg) [address] [facility] Sevelamer Carbonate (Renvela) 2.4 gm PO TIDCC [facility] Last Admin: 03/12/18 12:44 Dose: 2.4 gm Vitamin B Complex/Vit C/Folic Acid (Nephro-Vince) 1 tab PO 0800 [facility] Last Admin: 03/12/18 08:53 Dose: 1 tab - Labs Labs: 03/10/18 07:43 03/10/18 07:43 PT 11.4 SECONDS (9.7-12.2) 02/24/18 00:56 INR 1.0 02/24/18 00:56 APTT 33 SECONDS (21-34) 02/24/18 00:56 - Constitutional Appears: Well, Non-toxic, No Acute Distress - Head Exam Head Exam: ATRAUMATIC, NORMAL INSPECTION, NORMOCEPHALIC - Eye Exam Eye Exam: EOMI, Normal appearance, PERRL Pupil Exam: NORMAL ACCOMODATION, PERRL - ENT Exam ENT Exam: Mucous Membranes Moist, Normal Exam - Neck Exam Neck Exam: Full ROM, Normal Inspection - Respiratory Exam Respiratory Exam: Clear to Ausculation Bilateral, NORMAL BREATHING PATTERN - Cardiovascular Exam Cardiovascular Exam: REGULAR RHYTHM, +S1, +S2 - GI/Abdominal Exam GI & Abdominal Exam: Soft, Normal Bowel Sounds - Rectal Exam Rectal Exam: Deferred - Extremities Exam Extremities Exam: Full ROM, Normal Inspection Additional comments: dressing to rt foot+ - Neurological Exam Neurological Exam: Alert, CN II-XII Intact, Normal Gait, Oriented x3 - Psychiatric Exam Psychiatric exam: Normal Affect - Skin Skin Exam: Normal Color, Warm Assessment and Plan - Assessment and Plan (Free Text) Assessment: 52yo Gfemale with pmh/o htn, dm, cad, s/p cabg, pvd, rt foot ulcer, proteinuria, 1. 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 ckf 3. Anmeia 4. HTN 5. dm 6. DM retinopathy with poor vision c/w Hd 3 x aweek , will schedule for hd in am restrict fluids to 1 lit/day c/w epogen, renvela, nephrovite
--- NOTE | 2018-03-12 21:45 | CP.PCM.PN ---
Subjective - Date & Time of Evaluation Date of Evaluation: 03/11/18 Time of Evaluation: 16:00 - Subjective Subjective: Breathing better Objective - Vital Signs/Intake and Output Vital Signs (last 24 hours): Temp Pulse Resp BP Pulse Ox 98.2 F 81 20 134/69 98 03/12/18 15:15 03/12/18 15:15 03/12/18 15:15 03/12/18 17:36 03/12/18 15:15 Intake and Output: 03/12/18 03/13/18 18:59 06:59 Intake Total 400 Balance 400 - Medications Medications: Current Medications Acetaminophen (Tylenol 325mg Tab) 650 mg PO Q6 PRN PRN Reason: Anaphylaxis Last Admin: 03/11/18 11:53 Dose: 650 mg Albuterol (Ventolin Hfa 90 Mcg/Actuation (8 G)) 1 puff IH RQID PRN PRN Reason: Wheezing Last Admin: 03/11/18 19:29 Dose: 1 puff Amlodipine Besylate (Norvasc) 10 mg PO DAILY [facility] Aspirin (Ecotrin) 81 mg PO DAILY [facility] Last Admin: 03/12/18 09:12 Dose: 81 mg Carvedilol (Coreg) 3.125 mg PO BID [facility] Last Admin: 03/12/18 17:36 Dose: 3.125 mg Cyclobenzaprine HCl (Flexeril) 10 mg PO Q8 PRN PRN Reason: Muscle spasm Last Admin: 03/08/18 17:42 Dose: 10 mg Epoetin Tito (Procrit) 10,000 unit IV MWF [facility] Last Admin: 03/10/18 10:12 Dose: 10,000 unit Ferrous Sulfate (Feosol) 325 mg PO TID [facility] Last Admin: 03/12/18 17:36 Dose: 325 mg Fluticasone/Vilanterol (Breo Ellipta 200-25 Mcg Inh) 1 puff INH RQD [facility] Last Admin: 03/11/18 09:07 Dose: 1 puff Furosemide (Lasix) 40 mg PO BID [facility] Last Admin: 03/12/18 17:36 Dose: 40 mg Gabapentin (Neurontin) 100 mg PO TID [facility] Last Admin: 03/12/18 17:36 Dose: 100 mg Hydralazine HCl (Apresoline) 25 mg PO Q8 [facility] Last Admin: 03/12/18 13:52 Dose: 25 mg Insulin Aspart (Novolog) 0 unit SC ACHS [facility]; Protocol Last Admin: 03/12/18 17:36 Dose: 4 units Insulin Glargine (Lantus) 24 unit SC [facility] Pantoprazole Sodium (Protonix Ec Tab) 40 mg PO DAILY [facility] Last Admin: 03/12/18 09:12 Dose: 40 mg Paricalcitol (Zemplar) 2 mcg IV MWF [facility] Last Admin: 03/10/18 10:13 Dose: 2 mcg Rosuvastatin Calcium (Crestor) 5 mg PO [facility] Last Admin: 03/11/18 22:43 Dose: 5 mg Senna/Docusate Sodium (Senokot S 50 Mg-8.6 Mg) 1 tab PO [facility] Sevelamer Carbonate (Renvela) 2.4 gm PO TIDCC [facility] Last Admin: 03/12/18 17:36 Dose: 2.4 gm Vitamin B Complex/Vit C/Folic Acid (Nephro-Vince) 1 tab PO 0800 [facility] Last Admin: 03/12/18 08:53 Dose: 1 tab - Labs Labs: 03/10/18 07:43 03/10/18 07:43 PT 11.4 SECONDS (9.7-12.2) 02/24/18 00:56 INR 1.0 02/24/18 00:56 APTT 33 SECONDS (21-34) 02/24/18 00:56 - Head Exam Head Exam: ATRAUMATIC - Eye Exam Eye Exam: Normal appearance - ENT Exam ENT Exam: Mucous Membranes Dry - Respiratory Exam Respiratory Exam: NORMAL BREATHING PATTERN - Cardiovascular Exam Cardiovascular Exam: +S1, +S2 - GI/Abdominal Exam GI & Abdominal Exam: Normal Bowel Sounds Assessment and Plan (1) Anemia Assessment & Plan: anemia of CKD and chronic disease on EPO per renal transfusion support PRN outpatient screening colonoscopy Status: Acute
--- NOTE | 2018-03-12 21:46 | CP.PCM.PN ---
Subjective - Date & Time of Evaluation Date of Evaluation: 03/12/18 Time of Evaluation: 20:00 - Subjective Subjective: No complaints. Objective - Vital Signs/Intake and Output Vital Signs (last 24 hours): Temp Pulse Resp BP Pulse Ox 98.2 F 81 20 134/69 98 03/12/18 15:15 03/12/18 15:15 03/12/18 15:15 03/12/18 17:36 03/12/18 15:15 Intake and Output: 03/12/18 03/13/18 18:59 06:59 Intake Total 400 Balance 400 - Medications Medications: Current Medications Acetaminophen (Tylenol 325mg Tab) 650 mg PO Q6 PRN PRN Reason: Anaphylaxis Last Admin: 03/11/18 11:53 Dose: 650 mg Albuterol (Ventolin Hfa 90 Mcg/Actuation (8 G)) 1 puff IH RQID PRN PRN Reason: Wheezing Last Admin: 03/11/18 19:29 Dose: 1 puff Amlodipine Besylate (Norvasc) 10 mg PO DAILY [facility] Aspirin (Ecotrin) 81 mg PO DAILY [facility] Last Admin: 03/12/18 09:12 Dose: 81 mg Carvedilol (Coreg) 3.125 mg PO BID [facility] Last Admin: 03/12/18 17:36 Dose: 3.125 mg Cyclobenzaprine HCl (Flexeril) 10 mg PO Q8 PRN PRN Reason: Muscle spasm Last Admin: 03/08/18 17:42 Dose: 10 mg Epoetin Tito (Procrit) 10,000 unit IV MWF [facility] Last Admin: 03/10/18 10:12 Dose: 10,000 unit Ferrous Sulfate (Feosol) 325 mg PO TID [facility] Last Admin: 03/12/18 17:36 Dose: 325 mg Fluticasone/Vilanterol (Breo Ellipta 200-25 Mcg Inh) 1 puff INH RQD [facility] Last Admin: 03/11/18 09:07 Dose: 1 puff Furosemide (Lasix) 40 mg PO BID [facility] Last Admin: 03/12/18 17:36 Dose: 40 mg Gabapentin (Neurontin) 100 mg PO TID [facility] Last Admin: 03/12/18 17:36 Dose: 100 mg Hydralazine HCl (Apresoline) 25 mg PO Q8 [facility] Last Admin: 03/12/18 13:52 Dose: 25 mg Insulin Aspart (Novolog) 0 unit SC [facility]; Protocol Last Admin: 03/12/18 17:36 Dose: 4 units Insulin Glargine (Lantus) 24 unit SC [facility] Pantoprazole Sodium (Protonix Ec Tab) 40 mg PO DAILY [facility] Last Admin: 03/12/18 09:12 Dose: 40 mg Paricalcitol (Zemplar) 2 mcg IV MWF [facility] Last Admin: 03/10/18 10:13 Dose: 2 mcg Rosuvastatin Calcium (Crestor) 5 mg PO [facility] Last Admin: 03/11/18 22:43 Dose: 5 mg Senna/Docusate Sodium (Senokot S 50 Mg-8.6 Mg) 1 tab PO [facility] Sevelamer Carbonate (Renvela) 2.4 gm PO TIDCC [facility] Last Admin: 03/12/18 17:36 Dose: 2.4 gm Vitamin B Complex/Vit C/Folic Acid (Nephro-Vince) 1 tab PO 0800 [facility] Last Admin: 03/12/18 08:53 Dose: 1 tab - Labs Labs: 03/10/18 07:43 03/10/18 07:43 PT 11.4 SECONDS (9.7-12.2) 02/24/18 00:56 INR 1.0 02/24/18 00:56 APTT 33 SECONDS (21-34) 02/24/18 00:56 - Head Exam Head Exam: ATRAUMATIC - Eye Exam Eye Exam: Normal appearance - ENT Exam ENT Exam: Mucous Membranes Dry - Respiratory Exam Respiratory Exam: NORMAL BREATHING PATTERN - Cardiovascular Exam Cardiovascular Exam: +S1, +S2 - GI/Abdominal Exam GI & Abdominal Exam: Normal Bowel Sounds Assessment and Plan (1) Anemia Assessment & Plan: anemia of CKD and chronic disease on EPO per renal transfusion support PRN outpatient screening colonoscopy Status: Acute
[2018-03-12] MEDS: (Lantus) Insulin Glargine, Recombinant SC SCH (22:10)
[2018-03-12] MEDS: Docusate-Senna 50 mg-8.6 mg Tab PO SCH (22:10)
[2018-03-13] MEDS: (Novolog) Insulin Aspart, Recombinant 100 u/ml 10 ml vial SC SCH ×4 (07:58→21:41)
[2018-03-13] MEDS: Multivitamin Vitamin B Complex (Nephro-Vite) Tab PO SCH (07:58)
[2018-03-13] MEDS: Sevelamer Carb 2.4 gm/Packet PO SCH ×3 (08:04→18:00)
[2018-03-13 09:57] LABS: HEMOGLOBIN 8.9 g/dL (11.0-16.0); MEAN CELL VOLUME 76.3 fL (81.0-99.0); MEAN CORPUSCULAR HEMOGLOBIN 24.7 pg (27.0-31.0); MEAN CORPUSCULAR HGB CONC 32.4 g/dL (33.0-37.0); MEAN PLATELET VOLUME 8.5 fL (7.2-11.7); RBC 3.59 Mil/uL (3.80-5.20); RED CELL DISTRIBUTION WIDTH 18.3 % (11.5-14.5); WHITE BLOOD COUNT 9.6 K/uL (4.8-10.8)
[2018-03-13] MEDS: Pantoprazole 40 mg EC Tab PO SCH ×2 (10:00→13:26)
--- NOTE | 2018-03-13 10:07 | CP.PCM.PN ---
Subjective - Date & Time of Evaluation Date of Evaluation: 03/13/18 Time of Evaluation: 10:06 - Subjective Subjective: Pulmonary Follow up, Covering Dr Treadwell The patient was Seen/interviewed and examined by me at the bedside, Medical records reviewed and Management issues were discussed and formulated with the house staff. Events reviewed Afebrile and in no acute distress. Patient was seen while receiving hemodialysis. Oxygen saturation 96% on RA. SOB is improving, patient reports feeling much better overall. Continues to use BiPAP overnight. Denies chest pain, cough. Objective - Vital Signs/Intake and Output Vital Signs (last 24 hours): Temp Pulse Resp BP Pulse Ox 98.6 F 98 H 20 138/68 95 03/13/18 07:00 03/13/18 07:34 03/13/18 07:00 03/13/18 07:00 03/13/18 07:00 Intake and Output: 03/13/18 03/13/18 06:59 18:59 Intake Total 210 Balance 210 - Medications Medications: Current Medications Acetaminophen (Tylenol 325mg Tab) 650 mg PO Q6 PRN PRN Reason: Anaphylaxis Last Admin: 03/11/18 11:53 Dose: 650 mg Albuterol (Ventolin Hfa 90 Mcg/Actuation (8 G)) 1 puff IH RQID PRN PRN Reason: Wheezing Last Admin: 03/11/18 19:29 Dose: 1 puff Amlodipine Besylate (Norvasc) 10 mg PO DAILY [facility] Aspirin (Ecotrin) 81 mg PO DAILY [facility] Last Admin: 03/12/18 09:12 Dose: 81 mg Carvedilol (Coreg) 3.125 mg PO BID [facility] Last Admin: 03/12/18 17:36 Dose: 3.125 mg Cyclobenzaprine HCl (Flexeril) 10 mg PO Q8 PRN PRN Reason: Muscle spasm Last Admin: 03/08/18 17:42 Dose: 10 mg Epoetin Tito (Procrit) 10,000 unit IV MWF [facility] Last Admin: 03/10/18 10:12 Dose: 10,000 unit Ferrous Sulfate (Feosol) 325 mg PO TID [facility] Last Admin: 03/12/18 17:36 Dose: 325 mg Fluticasone/Vilanterol (Breo Ellipta 200-25 Mcg Inh) 1 puff INH RQD [facility] Last Admin: 03/11/18 09:07 Dose: 1 puff Furosemide (Lasix) 40 mg PO BID [facility] Last Admin: 03/12/18 17:36 Dose: 40 mg Gabapentin (Neurontin) 100 mg PO TID [facility] Last Admin: 03/12/18 17:36 Dose: 100 mg Hydralazine HCl (Apresoline) 25 mg PO Q8 [facility] Last Admin: 03/13/18 05:56 Dose: 25 mg Insulin Aspart (Novolog) 0 unit SC [facility]; Protocol Last Admin: 03/13/18 07:58 Dose: 4 units Insulin Glargine (Lantus) 24 unit SC [facility] Last Admin: 03/12/18 22:10 Dose: 24 units Pantoprazole Sodium (Protonix Ec Tab) 40 mg PO DAILY [facility] Last Admin: 03/12/18 09:12 Dose: 40 mg Paricalcitol (Zemplar) 2 mcg IV MWF [facility] Last Admin: 03/10/18 10:13 Dose: 2 mcg Rosuvastatin Calcium (Crestor) 5 mg PO [facility] Last Admin: 03/12/18 22:10 Dose: 5 mg Senna/Docusate Sodium (Senokot S 50 Mg-8.6 Mg) 1 tab PO [facility] Last Admin: 03/12/18 22:10 Dose: 1 tab Sevelamer Carbonate (Renvela) 2.4 gm PO TIDCC [facility] Last Admin: 03/13/18 08:04 Dose: 2.4 gm Vitamin B Complex/Vit C/Folic Acid (Nephro-Vince) 1 tab PO 0800 [facility] Last Admin: 03/13/18 07:58 Dose: 1 tab - Labs Labs: 03/13/18 09:43 03/10/18 07:43 PT 11.4 SECONDS (9.7-12.2) 02/24/18 00:56 INR 1.0 02/24/18 00:56 APTT 33 SECONDS (21-34) 02/24/18 00:56 - Constitutional Appears: Well, Non-toxic, No Acute Distress - Head Exam Head Exam: ATRAUMATIC, NORMAL INSPECTION - Eye Exam Eye Exam: EOMI, Normal appearance - ENT Exam ENT Exam: Mucous Membranes Moist - Respiratory Exam Respiratory Exam: Decreased Breath Sounds, Rhonchi. absent: Rales, Wheezes - Cardiovascular Exam Cardiovascular Exam: REGULAR RHYTHM, +S1, +S2 Assessment and Plan (1) Acute respiratory distress Status: Acute (2) Acute pulmonary edema Assessment & Plan: - Continue current therapy of Albuterol, Breo - CXR after hemodialysis ordered for today. Will follow up results. - Continue BiPAP machine is patient is SOB. Status: Acute (3) Chr obstructive pulmonary disease w/ acute lower respiratory infxn Status: Acute - Assessment and Plan (Free Text) Assessment: PLAN - Continue current therapy of Albuterol, Breo - CXR after hemodialysis ordered for today. Will follow up results. - Continue BiPAP machine is patient is SOB.
[2018-03-13 10:14] LABS: CALCIUM 8.9 mg/dl (8.6-10.4)
[2018-03-13] MEDS: Fluticasone-Vilanterol 200/25mcg Diskus INH SCH (10:56)
--- NOTE | 2018-03-13 11:10 | CARD ---
APPROVED REPORT Date of service: 03/09/2018 EKG Measurement Heart [id number] <Conclusion> Normal sinus rhythm Cannot rule out Anterior infarct, age undetermined T wave abnormality, consider inferolateral ischemia Abnormal ECG
[2018-03-13] MEDS: Epoetin Alfa 10,000 unit/ml Dialysis IV SCH (11:28)
[2018-03-13] MEDS: Paricalcitol 2 mcg/ml Inj IV SCH (11:29)
--- NOTE | 2018-03-13 14:16 | CP.PCM.PN ---
Subjective - Date & Time of Evaluation Date of Evaluation: 03/13/18 Time of Evaluation: 14:16 - Subjective Subjective: 52 yo GF with pmh/o htn, dm, cad, s/p cabg, pvd with nephrotic range proteinuria with increased bun/cr on hemodialysis s/p hd today, had a uf about 3.5 lit, feeling much better, no sob Objective - Vital Signs/Intake and Output Vital Signs (last 24 hours): Temp Pulse Resp BP Pulse Ox 97.7 F 115 H 18 167/92 H 96 03/13/18 12:45 03/13/18 12:45 03/13/18 09:05 03/13/18 12:45 03/13/18 09:05 Intake and Output: 03/13/18 03/13/18 06:59 18:59 Intake Total 210 Balance 210 - Medications Medications: Current Medications Acetaminophen (Tylenol 325mg Tab) 650 mg PO Q6 PRN PRN Reason: Anaphylaxis Last Admin: 03/11/18 11:53 Dose: 650 mg Albuterol (Ventolin Hfa 90 Mcg/Actuation (8 G)) 1 puff IH RQID PRN PRN Reason: Wheezing Last Admin: 03/11/18 19:29 Dose: 1 puff Amlodipine Besylate (Norvasc) 10 mg PO DAILY [facility] Last Admin: 03/13/18 13:26 Dose: 10 mg Aspirin (Ecotrin) 81 mg PO DAILY [facility] Last Admin: 03/13/18 13:26 Dose: 81 mg Carvedilol (Coreg) 3.125 mg PO BID [facility] Last Admin: 03/13/18 10:00 Dose: Not Given Cyclobenzaprine HCl (Flexeril) 10 mg PO Q8 PRN PRN Reason: Muscle spasm Last Admin: 03/08/18 17:42 Dose: 10 mg Epoetin Tito (Procrit) 10,000 unit IV MWF [facility] Last Admin: 03/13/18 11:28 Dose: 10,000 unit Ferrous Sulfate (Feosol) 325 mg PO TID [facility] Last Admin: 03/13/18 13:27 Dose: 325 mg Fluticasone/Vilanterol (Breo Ellipta 200-25 Mcg Inh) 1 puff INH RQD [facility] Last Admin: 03/13/18 10:56 Dose: Not Given Furosemide (Lasix) 40 mg PO BID [facility] Last Admin: 03/13/18 10:00 Dose: Not Given Gabapentin (Neurontin) 100 mg PO TID [facility] Last Admin: 03/13/18 13:27 Dose: 100 mg Heparin Sodium (Porcine) (Heparin) 1,000 units IVP [facility] [place] Heparin Sodium (Porcine) (Heparin) 3,700 units IVP [facility] [place] Last Admin: 03/13/18 12:50 Dose: 3,700 units Hydralazine HCl (Apresoline) 25 mg PO Q8 [facility] Last Admin: 03/13/18 13:27 Dose: 25 mg Insulin Aspart (Novolog) 0 unit SC [facility]; Protocol Last Admin: 03/13/18 10:00 Dose: Not Given Insulin Glargine (Lantus) 24 unit SC [facility] Last Admin: 03/12/18 22:10 Dose: 24 units Pantoprazole Sodium (Protonix Ec Tab) 40 mg PO DAILY [facility] Last Admin: 03/13/18 13:26 Dose: 40 mg Paricalcitol (Zemplar) 2 mcg IV [facility] [place] Last Admin: 03/13/18 11:29 Dose: 2 mcg Rosuvastatin Calcium (Crestor) 5 mg PO [facility] Last Admin: 03/12/18 22:10 Dose: 5 mg Senna/Docusate Sodium (Senokot S 50 Mg-8.6 Mg) 1 tab PO [facility] Last Admin: 03/12/18 22:10 Dose: 1 tab Sevelamer Carbonate (Renvela) 2.4 gm PO [facility] Last Admin: 03/13/18 10:00 Dose: Not Given Vitamin B Complex/Vit C/Folic Acid (Nephro-Vince) 1 tab PO 0800 [facility] Last Admin: 03/13/18 07:58 Dose: 1 tab - Labs Labs: 03/13/18 09:43 03/13/18 09:43 PT 11.4 SECONDS (9.7-12.2) 02/24/18 00:56 INR 1.0 02/24/18 00:56 APTT 33 SECONDS (21-34) 02/24/18 00:56 - Constitutional Appears: Non-toxic, No Acute Distress - Head Exam Head Exam: ATRAUMATIC, NORMAL INSPECTION, NORMOCEPHALIC - Eye Exam Eye Exam: EOMI, Normal appearance, PERRL Pupil Exam: NORMAL ACCOMODATION - ENT Exam ENT Exam: Mucous Membranes Moist, Normal Exam - Neck Exam Neck Exam: Full ROM, Normal Inspection - Respiratory Exam Respiratory Exam: Clear to Ausculation Bilateral, NORMAL BREATHING PATTERN - Cardiovascular Exam Cardiovascular Exam: REGULAR RHYTHM, +S1, +S2 - GI/Abdominal Exam GI & Abdominal Exam: Soft, Normal Bowel Sounds - Rectal Exam Rectal Exam: Deferred - Neurological Exam Neurological Exam: Alert, Awake, CN II-XII Intact, Oriented x3 - Skin Skin Exam: Normal Color, Warm Additional comments: dressing to rt foot+ Assessment and Plan - Assessment and Plan (Free Text) Assessment: 52 yo GF with htn, dm cad, s/p cabg, poor vision, esrd , anemia, sec . hpth 1. ESRD 2. chf 3. cad, s/p cabg 4. Anmeia 5. sec. hpth c/w hd 3 x a week mwf c/w epogen, zemplar, nephrocaps, renvela restrict fluid sto 1 lit/day awaiting for out pt hd unit placement
--- NOTE | 2018-03-13 14:59 | RAD ---
Date of service: 03/13/2018 HISTORY: Follow up acue pulmonary edema COMPARISON: No prior. TECHNIQUE: Chest PA and lateral FINDINGS: No change right IJ dialysis catheter with tips in the SVC. LUNGS: Persistent mild but improved pulmonary venous congestive changes bilateral infiltrates and bilateral effusions right larger than left. PLEURA: No significant pleural effusion identified. No pneumothorax apparent. CARDIOVASCULAR: Sternotomy wires CABG clips and cardiomegaly unchanged OSSEOUS STRUCTURES: No significant abnormalities. VISUALIZED UPPER ABDOMEN: Normal. OTHER FINDINGS: None. IMPRESSION: Persistent mild but improved pulmonary venous congestive changes bilateral infiltrates and bilateral effusions right larger than left.
[2018-03-13] MEDS: (Lantus) Insulin Glargine, Recombinant SC SCH (21:44)
[2018-03-13] MEDS: Docusate-Senna 50 mg-8.6 mg Tab PO SCH (21:45)
[2018-03-14] MEDS: Sevelamer Carb 2.4 gm/Packet PO SCH ×3 (08:16→18:14)
[2018-03-14] MEDS: Multivitamin Vitamin B Complex (Nephro-Vite) Tab PO SCH (08:16)
[2018-03-14] MEDS: (Novolog) Insulin Aspart, Recombinant 100 u/ml 10 ml vial SC SCH ×4 (08:18→21:19)
[2018-03-14] MEDS: Fluticasone-Vilanterol 200/25mcg Diskus INH SCH (08:45)
[2018-03-14] MEDS: Pantoprazole 40 mg EC Tab PO SCH (09:37)
--- NOTE | 2018-03-14 12:28 | CP.PCM.PN ---
Subjective - Date & Time of Evaluation Date of Evaluation: 03/14/18 Time of Evaluation: 09:00 - Subjective Subjective: less cough less sob no fever Objective - Vital Signs/Intake and Output Vital Signs (last 24 hours): Temp Pulse Resp BP Pulse Ox 98.2 F 95 H 20 132/73 96 03/14/18 07:00 03/14/18 08:41 03/14/18 07:00 03/14/18 09:36 03/14/18 07:00 Intake and Output: 03/14/18 03/14/18 06:59 18:59 Intake Total 150 Output Total 200 Balance -50 - Medications Medications: Current Medications Acetaminophen (Tylenol 325mg Tab) 650 mg PO Q6 PRN PRN Reason: Anaphylaxis Last Admin: 03/11/18 11:53 Dose: 650 mg Albuterol (Ventolin Hfa 90 Mcg/Actuation (8 G)) 1 puff IH RQID PRN PRN Reason: Wheezing Last Admin: 03/11/18 19:29 Dose: 1 puff Amlodipine Besylate (Norvasc) 10 mg PO DAILY [facility] Last Admin: 03/14/18 09:37 Dose: 10 mg Aspirin (Ecotrin) 81 mg PO DAILY [facility] Last Admin: 03/14/18 09:37 Dose: 81 mg Carvedilol (Coreg) 3.125 mg PO BID [facility] Last Admin: 03/14/18 09:37 Dose: 3.125 mg Cyclobenzaprine HCl (Flexeril) 10 mg PO Q8 PRN PRN Reason: Muscle spasm Last Admin: 03/08/18 17:42 Dose: 10 mg Epoetin Tito (Procrit) 10,000 unit IV MWF [facility] Last Admin: 03/13/18 11:28 Dose: 10,000 unit Ferrous Sulfate (Feosol) 325 mg PO TID [facility] Last Admin: 03/14/18 09:41 Dose: 325 mg Fluticasone/Vilanterol (Breo Ellipta 200-25 Mcg Inh) 1 puff INH RQD [facility] Last Admin: 03/13/18 10:56 Dose: Not Given Furosemide (Lasix) 40 mg PO BID [facility] Last Admin: 03/14/18 09:36 Dose: 40 mg Gabapentin (Neurontin) 100 mg PO TID [facility] Last Admin: 03/14/18 09:37 Dose: 100 mg Heparin Sodium (Porcine) (Heparin) 1,000 units IVP [facility] Heparin Sodium (Porcine) (Heparin) 3,700 units IVP [facility] Last Admin: 03/13/18 12:50 Dose: 3,700 units Hydralazine HCl (Apresoline) 25 mg PO Q8 [facility] Last Admin: 03/14/18 06:27 Dose: 25 mg Insulin Aspart (Novolog) 0 unit SC [facility]; Protocol Last Admin: 03/14/18 08:18 Dose: 4 units Insulin Glargine (Lantus) 24 unit SC [facility] Last Admin: 03/13/18 21:44 Dose: 24 units Pantoprazole Sodium (Protonix Ec Tab) 40 mg PO DAILY [facility] Last Admin: 03/14/18 09:37 Dose: 40 mg Paricalcitol (Zemplar) 2 mcg IV [facility] Last Admin: 03/13/18 11:29 Dose: 2 mcg Rosuvastatin Calcium (Crestor) 5 mg PO [facility] Last Admin: 03/13/18 21:45 Dose: 5 mg Senna/Docusate Sodium (Senokot S 50 Mg-8.6 Mg) 1 tab PO [facility] Last Admin: 03/13/18 21:45 Dose: 1 tab Sevelamer Carbonate (Renvela) 2.4 gm PO TIDCC [facility] Last Admin: 03/14/18 08:16 Dose: 2.4 gm Vitamin B Complex/Vit C/Folic Acid (Nephro-Vince) 1 tab PO 0800 [facility] Last Admin: 03/14/18 08:16 Dose: 1 tab - Labs Labs: 03/13/18 09:43 03/13/18 09:43 PT 11.4 SECONDS (9.7-12.2) 02/24/18 00:56 INR 1.0 02/24/18 00:56 APTT 33 SECONDS (21-34) 02/24/18 00:56 - Constitutional Appears: Non-toxic, Chronically Ill - Head Exam Head Exam: NORMOCEPHALIC - Eye Exam Eye Exam: PERRL - ENT Exam ENT Exam: Mucous Membranes Dry - Neck Exam Neck Exam: absent: Lymphadenopathy - Respiratory Exam Respiratory Exam: Decreased Breath Sounds - Cardiovascular Exam Cardiovascular Exam: REGULAR RHYTHM - GI/Abdominal Exam GI & Abdominal Exam: Distended, Soft. absent: Tenderness - Rectal Exam Rectal Exam: Deferred - Exam Exam: NORMAL INSPECTION - Extremities Exam Extremities Exam: absent: Pedal Edema Assessment and Plan (1) BLAYNE (acute kidney injury) Status: Acute (2) Hypertension Status: Chronic (3) CKD (chronic kidney disease) Status: Acute (4) Diabetes mellitus Status: Acute (5) Non-healing ulcer of foot Status: Acute (6) PVD (peripheral vascular disease) Status: Acute (7) Renal insufficiency Status: Acute (8) Diabetes mellitus type 2 in nonobese Status: Chronic
--- NOTE | 2018-03-14 12:55 | CP.PCM.PN ---
Subjective - Date & Time of Evaluation Date of Evaluation: 03/14/18 Time of Evaluation: 12:55 - Subjective Subjective: Pulmonary Follow up, Covering Dr Treadwell The patient was Seen/interviewed and examined by me at the bedside, Medical records reviewed and Management issues were discussed and formulated with the house staff. Events reviewed Afebrile and in no acute distress. Patient was resting comfortably in bed. Patient states she was feeling much better. Patient denies cough, SOB or chest pain. Reports she may need a kidney transplant in the future. CXR done 03/13/2018 after hemodialysis - Persistent mild but improved pulmonary venous congestive changes bilateral infiltrates and bilateral effusions right larger than left. Objective - Vital Signs/Intake and Output Vital Signs (last 24 hours): Temp Pulse Resp BP Pulse Ox 98.2 F 95 H 20 132/73 96 03/14/18 07:00 03/14/18 08:41 03/14/18 07:00 03/14/18 09:36 03/14/18 07:00 Intake and Output: 03/14/18 03/14/18 06:59 18:59 Intake Total 150 Output Total 200 Balance -50 - Medications Medications: Current Medications Acetaminophen (Tylenol 325mg Tab) 650 mg PO Q6 PRN PRN Reason: Anaphylaxis Last Admin: 03/11/18 11:53 Dose: 650 mg Albuterol (Ventolin Hfa 90 Mcg/Actuation (8 G)) 1 puff IH RQID PRN PRN Reason: Wheezing Last Admin: 03/11/18 19:29 Dose: 1 puff Amlodipine Besylate (Norvasc) 10 mg PO DAILY [facility] Last Admin: 03/14/18 09:37 Dose: 10 mg Aspirin (Ecotrin) 81 mg PO DAILY [facility] Last Admin: 03/14/18 09:37 Dose: 81 mg Carvedilol (Coreg) 3.125 mg PO BID [facility] Last Admin: 03/14/18 09:37 Dose: 3.125 mg Cyclobenzaprine HCl (Flexeril) 10 mg PO Q8 PRN PRN Reason: Muscle spasm Last Admin: 03/08/18 17:42 Dose: 10 mg Epoetin Tito (Procrit) 10,000 unit IV MWF [facility] Last Admin: 03/13/18 11:28 Dose: 10,000 unit Ferrous Sulfate (Feosol) 325 mg PO TID [facility] Last Admin: 03/14/18 09:41 Dose: 325 mg Fluticasone/Vilanterol (Breo Ellipta 200-25 Mcg Inh) 1 puff INH RQD [facility] Last Admin: 03/13/18 10:56 Dose: Not Given Furosemide (Lasix) 40 mg PO BID [facility] Last Admin: 03/14/18 09:36 Dose: 40 mg Gabapentin (Neurontin) 100 mg PO TID [facility] Last Admin: 03/14/18 09:37 Dose: 100 mg Heparin Sodium (Porcine) (Heparin) 1,000 units IVP [facility] Heparin Sodium (Porcine) (Heparin) 3,700 units IVP [facility] Last Admin: 03/13/18 12:50 Dose: 3,700 units Hydralazine HCl (Apresoline) 25 mg PO Q8 [facility] Last Admin: 03/14/18 06:27 Dose: 25 mg Insulin Aspart (Novolog) 0 unit SC [facility]; Protocol Last Admin: 03/14/18 12:34 Dose: 4 units Insulin Glargine (Lantus) 24 unit SC [facility] Last Admin: 03/13/18 21:44 Dose: 24 units Pantoprazole Sodium (Protonix Ec Tab) 40 mg PO DAILY [facility] Last Admin: 03/14/18 09:37 Dose: 40 mg Paricalcitol (Zemplar) 2 mcg IV MWF [facility] Last Admin: 03/13/18 11:29 Dose: 2 mcg Rosuvastatin Calcium (Crestor) 5 mg PO [facility] Last Admin: 03/13/18 21:45 Dose: 5 mg Senna/Docusate Sodium (Senokot S 50 Mg-8.6 Mg) 1 tab PO [facility] Last Admin: 03/13/18 21:45 Dose: 1 tab Sevelamer Carbonate (Renvela) 2.4 gm PO TIDCC [facility] Last Admin: 03/14/18 12:33 Dose: 2.4 gm Vitamin B Complex/Vit C/Folic Acid (Nephro-Vince) 1 tab PO 0800 [facility] Last Admin: 03/14/18 08:16 Dose: 1 tab - Labs Labs: 03/13/18 09:43 03/13/18 09:43 PT 11.4 SECONDS (9.7-12.2) 02/24/18 00:56 INR 1.0 02/24/18 00:56 APTT 33 SECONDS (21-34) 02/24/18 00:56 - Constitutional Appears: Well, Non-toxic, No Acute Distress, Older Than Stated Age - Head Exam Head Exam: NORMAL INSPECTION - Eye Exam Eye Exam: EOMI, Normal appearance - ENT Exam ENT Exam: Mucous Membranes Moist - Respiratory Exam Respiratory Exam: Decreased Breath Sounds, NORMAL BREATHING PATTERN - Cardiovascular Exam Cardiovascular Exam: REGULAR RHYTHM, +S1, +S2 Assessment and Plan (1) Acute respiratory distress Assessment & Plan: Fluid overload resolved. No radiographic evidence of infection. Very small right pleural effusion. No thoracentesis indicated at this time. Persistant fluid status should be optimized by hemodialysis and ultra filtrate. - Continue current therapy of Albuterol and Breo. - Continue BiPAP machine if patient is SOB. Status: Acute (2) Acute pulmonary edema Status: Acute (3) Chr obstructive pulmonary disease w/ acute lower respiratory infxn Status: Acute
--- NOTE | 2018-03-14 17:06 | CP.PCM.PN ---
Subjective - Date & Time of Evaluation Date of Evaluation: 03/14/18 Time of Evaluation: 17:06 - Subjective Subjective: 52 yo GF with pmh/o htn, dm, cad, s/p cabg, pvd with nephrotic range proteinuria with increased bun/cr on hemodialysis s/p hdyesterday, had a uf about 3.5 lit, feeling much better, no sob pt was accepted to out pt hd unit at [facility] starting ,at 10.30 am Objective - Vital Signs/Intake and Output Vital Signs (last 24 hours): Temp Pulse Resp BP Pulse Ox 98.4 F 96 H 20 135/74 98 03/14/18 15:55 03/14/18 16:00 03/14/18 15:55 03/14/18 15:55 03/14/18 15:55 Intake and Output: 03/14/18 03/14/18 06:59 18:59 Intake Total 150 360 Output Total 200 Balance -50 360 - Medications Medications: Current Medications Acetaminophen (Tylenol 325mg Tab) 650 mg PO Q6 PRN PRN Reason: Anaphylaxis Last Admin: 03/11/18 11:53 Dose: 650 mg Albuterol (Ventolin Hfa 90 Mcg/Actuation (8 G)) 1 puff IH RQID PRN PRN Reason: Wheezing Last Admin: 03/11/18 19:29 Dose: 1 puff Amlodipine Besylate (Norvasc) 10 mg PO DAILY [facility] Last Admin: 03/14/18 09:37 Dose: 10 mg Aspirin (Ecotrin) 81 mg PO DAILY [facility] Last Admin: 03/14/18 09:37 Dose: 81 mg Carvedilol (Coreg) 3.125 mg PO BID [facility] Last Admin: 03/14/18 09:37 Dose: 3.125 mg Cyclobenzaprine HCl (Flexeril) 10 mg PO Q8 PRN PRN Reason: Muscle spasm Last Admin: 03/08/18 17:42 Dose: 10 mg Epoetin Tito (Procrit) 10,000 unit IV MWF [facility] Last Admin: 03/13/18 11:28 Dose: 10,000 unit Ferrous Sulfate (Feosol) 325 mg PO TID [facility] Last Admin: 03/14/18 14:11 Dose: 325 mg Fluticasone/Vilanterol (Breo Ellipta 200-25 Mcg Inh) 1 puff INH RQD [facility] Last Admin: 03/14/18 08:45 Dose: 1 puff Furosemide (Lasix) 40 mg PO BID [facility] Last Admin: 03/14/18 09:36 Dose: 40 mg Gabapentin (Neurontin) 100 mg PO TID [facility] Last Admin: 03/14/18 14:11 Dose: 100 mg Heparin Sodium (Porcine) (Heparin) 1,000 units IVP MWF [facility] Heparin Sodium (Porcine) (Heparin) 3,700 units IVP MWF [facility] Last Admin: 03/13/18 12:50 Dose: 3,700 units Hydralazine HCl (Apresoline) 25 mg PO Q8 [facility] Last Admin: 03/14/18 14:11 Dose: 25 mg Insulin Aspart (Novolog) 0 unit SC [facility]; Protocol Last Admin: 03/14/18 12:34 Dose: 4 units Insulin Glargine (Lantus) 24 unit SC [facility] Last Admin: 03/13/18 21:44 Dose: 24 units Pantoprazole Sodium (Protonix Ec Tab) 40 mg PO DAILY [facility] Last Admin: 03/14/18 09:37 Dose: 40 mg Paricalcitol (Zemplar) 2 mcg IV MWF [facility] Last Admin: 03/13/18 11:29 Dose: 2 mcg Rosuvastatin Calcium (Crestor) 5 mg PO [facility] Last Admin: 03/13/18 21:45 Dose: 5 mg Senna/Docusate Sodium (Senokot S 50 Mg-8.6 Mg) 1 tab PO [facility] Last Admin: 03/13/18 21:45 Dose: 1 tab Sevelamer Carbonate (Renvela) 2.4 gm PO TIDCC [facility] Last Admin: 03/14/18 12:33 Dose: 2.4 gm Vitamin B Complex/Vit C/Folic Acid (Nephro-Vince) 1 tab PO 0800 [facility] Last Admin: 03/14/18 08:16 Dose: 1 tab - Labs Labs: 03/13/18 09:43 03/13/18 09:43 PT 11.4 SECONDS (9.7-12.2) 02/24/18 00:56 INR 1.0 02/24/18 00:56 APTT 33 SECONDS (21-34) 02/24/18 00:56 - Head Exam Head Exam: ATRAUMATIC, NORMAL INSPECTION, NORMOCEPHALIC - Eye Exam Eye Exam: EOMI, Normal appearance, PERRL Pupil Exam: NORMAL ACCOMODATION Additional comments: poor vision b/l - ENT Exam ENT Exam: Mucous Membranes Moist, Normal Exam - Neck Exam Neck Exam: Full ROM, Normal Inspection - Respiratory Exam Respiratory Exam: Clear to Ausculation Bilateral, NORMAL BREATHING PATTERN - Cardiovascular Exam Cardiovascular Exam: REGULAR RHYTHM, +S1, +S2 - GI/Abdominal Exam GI & Abdominal Exam: Soft, Normal Bowel Sounds - Rectal Exam Rectal Exam: Deferred - Neurological Exam Neurological Exam: Alert, Awake, CN II-XII Intact, Normal Gait, Oriented x3 - Psychiatric Exam Psychiatric exam: Normal Affect, Normal Mood - Skin Skin Exam: Intact, Normal Color Additional comments: dressing to rt foot+ Assessment and Plan - Assessment and Plan (Free Text) Assessment: 52 yo GF with htn, dm cad, s/p cabg, poor vision, esrd , anemia, sec . hpth 1. ESRD 2. chf 3. cad, s/p cabg 4. Anmeia 5. sec. hpth c/w hd 3 x a week mwf c/w epogen, zemplar, nephrocaps, renvela restrict fluid sto 1 lit/day pt is accepted to out pt hd unit at [facility] ,TTS at 10.30 Am pt can be discharged tomorrow after hd and can get short tx on at [place]
--- NOTE | 2018-03-14 19:47 | CP.PCM.PN ---
Subjective - Date & Time of Evaluation Date of Evaluation: 03/13/18 Time of Evaluation: 19:00 - Subjective Subjective: Breathing better. Objective - Vital Signs/Intake and Output Vital Signs (last 24 hours): Temp Pulse Resp BP Pulse Ox 98.4 F 96 H 20 136/75 98 03/14/18 15:55 03/14/18 16:00 03/14/18 15:55 03/14/18 18:14 03/14/18 15:55 Intake and Output: 03/14/18 03/15/18 18:59 06:59 Intake Total 360 Balance 360 - Medications Medications: Current Medications Acetaminophen (Tylenol 325mg Tab) 650 mg PO Q6 PRN PRN Reason: Anaphylaxis Last Admin: 03/11/18 11:53 Dose: 650 mg Albuterol (Ventolin Hfa 90 Mcg/Actuation (8 G)) 1 puff IH RQID PRN PRN Reason: Wheezing Last Admin: 03/11/18 19:29 Dose: 1 puff Amlodipine Besylate (Norvasc) 10 mg PO DAILY [facility] Last Admin: 03/14/18 09:37 Dose: 10 mg Aspirin (Ecotrin) 81 mg PO DAILY [facility] Last Admin: 03/14/18 09:37 Dose: 81 mg Carvedilol (Coreg) 3.125 mg PO BID [facility] Last Admin: 03/14/18 18:14 Dose: 3.125 mg Cyclobenzaprine HCl (Flexeril) 10 mg PO Q8 PRN PRN Reason: Muscle spasm Last Admin: 03/08/18 17:42 Dose: 10 mg Epoetin Tito (Procrit) 10,000 unit IV MWF [facility] Last Admin: 03/13/18 11:28 Dose: 10,000 unit Ferrous Sulfate (Feosol) 325 mg PO TID [facility] Last Admin: 03/14/18 18:14 Dose: 325 mg Fluticasone/Vilanterol (Breo Ellipta 200-25 Mcg Inh) 1 puff INH RQD [facility] Last Admin: 03/14/18 08:45 Dose: 1 puff Furosemide (Lasix) 40 mg PO BID [facility] Last Admin: 03/14/18 18:14 Dose: 40 mg Gabapentin (Neurontin) 100 mg PO TID [facility] Last Admin: 03/14/18 18:14 Dose: 100 mg Heparin Sodium (Porcine) (Heparin) 1,000 units IVP [facility] Heparin Sodium (Porcine) (Heparin) 3,700 units IVP [facility] Last Admin: 03/13/18 12:50 Dose: 3,700 units Hydralazine HCl (Apresoline) 25 mg PO Q8 [facility] Last Admin: 03/14/18 14:11 Dose: 25 mg Insulin Aspart (Novolog) 0 unit SC [facility]; Protocol Last Admin: 03/14/18 18:13 Dose: 6 units Insulin Glargine (Lantus) 24 unit SC [facility] Last Admin: 03/13/18 21:44 Dose: 24 units Pantoprazole Sodium (Protonix Ec Tab) 40 mg PO DAILY [facility] Last Admin: 03/14/18 09:37 Dose: 40 mg Paricalcitol (Zemplar) 2 mcg IV [facility] Last Admin: 03/13/18 11:29 Dose: 2 mcg Rosuvastatin Calcium (Crestor) 5 mg PO [facility] Last Admin: 03/13/18 21:45 Dose: 5 mg Senna/Docusate Sodium (Senokot S 50 Mg-8.6 Mg) 1 tab PO [facility] Last Admin: 03/13/18 21:45 Dose: 1 tab Sevelamer Carbonate (Renvela) 2.4 gm PO TIDCC [facility] Last Admin: 03/14/18 18:14 Dose: 2.4 gm Vitamin B Complex/Vit C/Folic Acid (Nephro-Vince) 1 tab PO 0800 [facility] Last Admin: 03/14/18 08:16 Dose: 1 tab - Labs Labs: 03/13/18 09:43 03/13/18 09:43 PT 11.4 SECONDS (9.7-12.2) 02/24/18 00:56 INR 1.0 02/24/18 00:56 APTT 33 SECONDS (21-34) 02/24/18 00:56 - Head Exam Head Exam: ATRAUMATIC - Eye Exam Eye Exam: Normal appearance - ENT Exam ENT Exam: Mucous Membranes Dry - Respiratory Exam Respiratory Exam: NORMAL BREATHING PATTERN - Cardiovascular Exam Cardiovascular Exam: +S1, +S2 - GI/Abdominal Exam GI & Abdominal Exam: Normal Bowel Sounds Assessment and Plan (1) Anemia Assessment & Plan: anemia of CKD and chronic disease on EPO per renal transfusion support PRN outpatient screening colonoscopy Status: Acute
--- NOTE | 2018-03-14 19:48 | CP.PCM.PN ---
Subjective - Date & Time of Evaluation Date of Evaluation: 03/14/18 Time of Evaluation: 17:00 - Subjective Subjective: Breathing better. Objective - Vital Signs/Intake and Output Vital Signs (last 24 hours): Temp Pulse Resp BP Pulse Ox 98.4 F 96 H 20 136/75 98 03/14/18 15:55 03/14/18 16:00 03/14/18 15:55 03/14/18 18:14 03/14/18 15:55 Intake and Output: 03/14/18 03/15/18 18:59 06:59 Intake Total 360 Balance 360 - Medications Medications: Current Medications Acetaminophen (Tylenol 325mg Tab) 650 mg PO Q6 PRN PRN Reason: Anaphylaxis Last Admin: 03/11/18 11:53 Dose: 650 mg Albuterol (Ventolin Hfa 90 Mcg/Actuation (8 G)) 1 puff IH RQID PRN PRN Reason: Wheezing Last Admin: 03/11/18 19:29 Dose: 1 puff Amlodipine Besylate (Norvasc) 10 mg PO DAILY [facility] Last Admin: 03/14/18 09:37 Dose: 10 mg Aspirin (Ecotrin) 81 mg PO DAILY [facility] Last Admin: 03/14/18 09:37 Dose: 81 mg Carvedilol (Coreg) 3.125 mg PO BID [facility] Last Admin: 03/14/18 18:14 Dose: 3.125 mg Cyclobenzaprine HCl (Flexeril) 10 mg PO Q8 PRN PRN Reason: Muscle spasm Last Admin: 03/08/18 17:42 Dose: 10 mg Epoetin Tito (Procrit) 10,000 unit IV MWF [facility] Last Admin: 03/13/18 11:28 Dose: 10,000 unit Ferrous Sulfate (Feosol) 325 mg PO TID [facility] Last Admin: 03/14/18 18:14 Dose: 325 mg Fluticasone/Vilanterol (Breo Ellipta 200-25 Mcg Inh) 1 puff INH RQD [facility] Last Admin: 03/14/18 08:45 Dose: 1 puff Furosemide (Lasix) 40 mg PO BID [facility] Last Admin: 03/14/18 18:14 Dose: 40 mg Gabapentin (Neurontin) 100 mg PO TID [facility] Last Admin: 03/14/18 18:14 Dose: 100 mg Heparin Sodium (Porcine) (Heparin) 1,000 units IVP [facility] Heparin Sodium (Porcine) (Heparin) 3,700 units IVP [facility] Last Admin: 03/13/18 12:50 Dose: 3,700 units Hydralazine HCl (Apresoline) 25 mg PO Q8 [facility] Last Admin: 03/14/18 14:11 Dose: 25 mg Insulin Aspart (Novolog) 0 unit SC [facility]; Protocol Last Admin: 03/14/18 18:13 Dose: 6 units Insulin Glargine (Lantus) 24 unit SC [facility] Last Admin: 03/13/18 21:44 Dose: 24 units Pantoprazole Sodium (Protonix Ec Tab) 40 mg PO DAILY [facility] Last Admin: 03/14/18 09:37 Dose: 40 mg Paricalcitol (Zemplar) 2 mcg IV [facility] Last Admin: 03/13/18 11:29 Dose: 2 mcg Rosuvastatin Calcium (Crestor) 5 mg PO [facility] Last Admin: 03/13/18 21:45 Dose: 5 mg Senna/Docusate Sodium (Senokot S 50 Mg-8.6 Mg) 1 tab PO [facility] Last Admin: 03/13/18 21:45 Dose: 1 tab Sevelamer Carbonate (Renvela) 2.4 gm PO TIDCC [facility] Last Admin: 03/14/18 18:14 Dose: 2.4 gm Vitamin B Complex/Vit C/Folic Acid (Nephro-Vince) 1 tab PO 0800 [facility] Last Admin: 03/14/18 08:16 Dose: 1 tab - Labs Labs: 03/13/18 09:43 03/13/18 09:43 PT 11.4 SECONDS (9.7-12.2) 02/24/18 00:56 INR 1.0 02/24/18 00:56 APTT 33 SECONDS (21-34) 02/24/18 00:56 - Head Exam Head Exam: ATRAUMATIC - Eye Exam Eye Exam: Normal appearance - ENT Exam ENT Exam: Mucous Membranes Dry - Respiratory Exam Respiratory Exam: NORMAL BREATHING PATTERN - Cardiovascular Exam Cardiovascular Exam: +S1, +S2 - GI/Abdominal Exam GI & Abdominal Exam: Normal Bowel Sounds Assessment and Plan (1) Anemia Assessment & Plan: anemia of CKD and chronic disease on EPO per renal transfusion support PRN outpatient screening colonoscopy Status: Acute
[2018-03-14] MEDS: (Lantus) Insulin Glargine, Recombinant SC SCH (21:16)
[2018-03-14] MEDS: Docusate-Senna 50 mg-8.6 mg Tab PO SCH (21:19)
[2018-03-15] MEDS: Multivitamin Vitamin B Complex (Nephro-Vite) Tab PO SCH (08:19)
[2018-03-15] MEDS: (Novolog) Insulin Aspart, Recombinant 100 u/ml 10 ml vial SC SCH ×2 (08:19→11:34)
[2018-03-15] MEDS: Sevelamer Carb 2.4 gm/Packet PO SCH ×3 (08:19→12:28)
[2018-03-15] MEDS: Epoetin Alfa 10,000 unit/ml Dialysis IV SCH (09:31)
[2018-03-15] MEDS: Paricalcitol 2 mcg/ml Inj IV SCH (09:32)
[2018-03-15] MEDS: Fluticasone-Vilanterol 200/25mcg Diskus INH SCH (11:41)
[2018-03-15 12:21] VITALS: RESP 18; TEMP 98.1; O2SAT 98
[2018-03-15] MEDS: Pantoprazole 40 mg EC Tab PO SCH (12:26)
--- NOTE | 2018-03-15 13:09 | CP.PCM.PN ---
Subjective - Date & Time of Evaluation Date of Evaluation: 03/15/18 Time of Evaluation: 13:06 - Subjective Subjective: Podiatry - Dr. Mcmanus 52 year old female seen and evaluated at bedside for healed right lateral foot ulceration. Patient resting comfortably, NAD. Patient offers no complaints to her right foot wound w/dressing clean/dry/intact. Denies pain to right foot. Denies n/v/f/d/c/sob/cp/renteria. Objective - Vital Signs/Intake and Output Vital Signs (last 24 hours): Temp Pulse Resp BP Pulse Ox 98.1 F 116 H 18 156/77 H 98 03/15/18 11:45 03/15/18 11:45 03/15/18 11:45 03/15/18 11:45 03/15/18 11:45 Intake and Output: 03/15/18 03/15/18 06:59 18:59 Intake Total 200 Output Total 300 Balance -100 - Medications Medications: Current Medications Acetaminophen (Tylenol 325mg Tab) 650 mg PO Q6 PRN PRN Reason: Anaphylaxis Last Admin: 03/11/18 11:53 Dose: 650 mg Albuterol (Ventolin Hfa 90 Mcg/Actuation (8 G)) 1 puff IH RQID PRN PRN Reason: Wheezing Last Admin: 03/11/18 19:29 Dose: 1 puff Amlodipine Besylate (Norvasc) 10 mg PO DAILY [facility] Last Admin: 03/15/18 12:26 Dose: 10 mg Aspirin (Ecotrin) 81 mg PO DAILY [facility] Last Admin: 03/15/18 12:26 Dose: 81 mg Carvedilol (Coreg) 3.125 mg PO BID [facility] Last Admin: 03/15/18 09:00 Dose: Not Given Cyclobenzaprine HCl (Flexeril) 10 mg PO Q8 PRN PRN Reason: Muscle spasm Last Admin: 03/08/18 17:42 Dose: 10 mg Epoetin Tito (Procrit) 10,000 unit IV MWF [facility] Last Admin: 03/15/18 09:31 Dose: 10,000 unit Ferrous Sulfate (Feosol) 325 mg PO TID [facility] Last Admin: 03/15/18 09:00 Dose: Not Given Fluticasone/Vilanterol (Breo Ellipta 200-25 Mcg Inh) 1 puff INH RQD [facility] Last Admin: 03/15/18 11:41 Dose: Not Given Furosemide (Lasix) 40 mg PO BID [facility] Last Admin: 03/15/18 09:00 Dose: Not Given Gabapentin (Neurontin) 100 mg PO TID [facility] Last Admin: 03/15/18 09:00 Dose: Not Given Heparin Sodium (Porcine) (Heparin) 1,000 units IVP [facility] [place] Last Admin: 03/15/18 09:29 Dose: 1,000 units Heparin Sodium (Porcine) (Heparin) 3,700 units IVP [facility] [place] Last Admin: 03/15/18 09:31 Dose: 3,700 units Hydralazine HCl (Apresoline) 25 mg PO Q8 [facility] Last Admin: 03/15/18 06:54 Dose: 25 mg Insulin Aspart (Novolog) 0 unit SC [facility]; Protocol Last Admin: 03/15/18 11:34 Dose: Not Given Insulin Glargine (Lantus) 24 unit SC [facility] Last Admin: 03/14/18 21:16 Dose: 24 units Pantoprazole Sodium (Protonix Ec Tab) 40 mg PO DAILY [facility] Last Admin: 03/15/18 12:26 Dose: 40 mg Paricalcitol ([facility]ar) [facility] Last Admin: 03/15/18 09:32 Dose: 2 mcg Rosuvastatin Calcium (Crestor) 5 mg PO [facility] Last Admin: 03/14/18 21:19 Dose: 5 mg Senna/Docusate Sodium (Senokot S 50 Mg-8.6 Mg) 1 tab PO [facility] Last Admin: 03/14/18 21:19 Dose: 1 tab Sevelamer Carbonate (Renvela) 2.4 gm PO TIDCC [facility] Last Admin: 03/15/18 12:28 Dose: 2.4 gm Vitamin B Complex/Vit C/Folic Acid (Nephro-Vince) 1 tab PO 0800 [facility] Last Admin: 03/15/18 08:19 Dose: 1 tab - Labs Labs: 03/13/18 09:43 03/13/18 09:43 PT 11.4 SECONDS (9.7-12.2) 02/24/18 00:56 INR 1.0 02/24/18 00:56 APTT 33 SECONDS (21-34) 02/24/18 00:56 - Constitutional Appears: Well, Non-toxic, No Acute Distress - Extremities Exam Additional comments: LE focused exam: VASC: DP/PT non-palpable b/l, temperature gradient cool to cool from proximal to distal b/l, Cap refill delayed to digits > 4 sec, no edema noted b/l. NEURO: Gross sensation intact, Protective sensation diminished DERM: Healed circular ulceration noted to the lateral aspect of right 5th metatarsal base with overlying hyperkeratosis. No drainage, No erythema, No fluctanance noted, No streaking. No clinical signs of infection. MSK: No pain on palpation noted to ulceration. Muscle strength 5/5 for all dorsiflexors, plantarflexors, inverters, and everters. - Neurological Exam Neurological Exam: Alert, Awake, Oriented x3 - Psychiatric Exam Psychiatric exam: Normal Affect, Normal Mood Assessment and Plan - Assessment and Plan (Free Text) Assessment: 52 year old female with healed right foot ulceration Plan: Patient seen and evaluated Discussed with attending, Dr. Mcmanus Afebrile Continue local wound care - betadine, DSD Wound stable from podiatry standpoint Patient to follow up with Dr. Mcmanus in office within 1 week of discharge Podiatry will continue to follow
[2018-03-15 13:37] VITALS: BP 137/73; PULSE 114
[2018-03-15] MEDS ORDERED: Influenza Vaccine 60 MCG/0.5 ML SYR (3 yr & up) IM ONE (13:45)
--- NOTE | 2018-03-15 16:18 | CP.PCM.PN ---
Subjective - Date & Time of Evaluation Date of Evaluation: 03/15/18 Time of Evaluation: 11:00 - Subjective Subjective: alert orientedx3, no sob or chest pains, NAD. Objective - Vital Signs/Intake and Output Vital Signs (last 24 hours): Temp Pulse Resp BP Pulse Ox 98.1 F 114 H 18 137/73 98 03/15/18 11:45 03/15/18 13:37 03/15/18 11:45 03/15/18 13:37 03/15/18 11:45 Intake and Output: 03/15/18 03/15/18 06:59 18:59 Intake Total 200 400 Output Total 300 Balance -100 400 - Labs Labs: 03/13/18 09:43 03/13/18 09:43 PT 11.4 SECONDS (9.7-12.2) 02/24/18 00:56 INR 1.0 02/24/18 00:56 APTT 33 SECONDS (21-34) 02/24/18 00:56 Assessment and Plan - Assessment and Plan (Free Text) Assessment: 52 year old female, admitted with renal failure, new dialysis patient, seen and examined. Alert and orientedx3, denies any pain. Has outpatient HD set up for TTS starting tomorrow. Prescriptions given for new medications. Advised to follow up with PMD and the nephrologyst in 1 week.
--- NOTE | 2018-03-18 21:51 | CP.PCM.PN ---
Subjective - Date & Time of Evaluation Date of Evaluation: 03/15/18 Time of Evaluation: 12:00 - Subjective Subjective: Feeling better Objective - Vital Signs/Intake and Output Vital Signs (last 24 hours): Temp Pulse Resp BP Pulse Ox 98.1 F 114 H 18 137/73 98 03/15/18 11:45 03/15/18 13:37 03/15/18 11:45 03/15/18 13:37 03/15/18 11:45 - Labs Labs: 03/13/18 09:43 03/13/18 09:43 PT 11.4 SECONDS (9.7-12.2) 02/24/18 00:56 INR 1.0 02/24/18 00:56 APTT 33 SECONDS (21-34) 02/24/18 00:56 - Head Exam Head Exam: ATRAUMATIC - Eye Exam Eye Exam: Normal appearance - ENT Exam ENT Exam: Mucous Membranes Dry - Respiratory Exam Respiratory Exam: NORMAL BREATHING PATTERN - Cardiovascular Exam Cardiovascular Exam: +S1, +S2 - GI/Abdominal Exam GI & Abdominal Exam: Normal Bowel Sounds Assessment and Plan (1) Anemia Assessment & Plan: anemia of CKD and chronic disease on EPO per renal transfusion support PRN outpatient screening colonoscopy Status: Acute
== END 2018-03-15 14:07 | disposition home or self-care (01) | DRG 444 ==
LOC: C.ER 16:00 → C.9E 19:07 → C.6T 22:17
PROVIDERS: ADMIT Internal Medicine; ATTEND Internal Medicine
PROC: 03180ZD Bypass Left Brachial Artery to Upper Arm Vein, Open Approach (ICD-10-PCS; principal; 2018-02-24 11:30)
PROC: 05HM33Z Insertion of Infusion Device into Right Internal Jugular Vein, Percutaneous Approach (ICD-10-PCS; 2018-02-27)
PROC: 5A1D70Z Performance of Urinary Filtration, Intermittent, Less than 6 Hours Per Day (ICD-10-PCS; 2018-03-01)
PROC: 5A1D70Z Performance of Urinary Filtration, Intermittent, Less than 6 Hours Per Day (ICD-10-PCS; 2018-03-06)
PROC: 5A1D70Z Performance of Urinary Filtration, Intermittent, Less than 6 Hours Per Day (ICD-10-PCS; 2018-03-08)
PROC: 5A1D70Z Performance of Urinary Filtration, Intermittent, Less than 6 Hours Per Day (ICD-10-PCS; 2018-03-10)
PROC: 5A1D70Z Performance of Urinary Filtration, Intermittent, Less than 6 Hours Per Day (ICD-10-PCS; 2018-03-13)
PROC: 5A1D70Z Performance of Urinary Filtration, Intermittent, Less than 6 Hours Per Day (ICD-10-PCS; 2018-03-15)
DX: N17.0 Acute kidney failure with tubular necrosis (principal); I13.2 Hypertensive heart and chronic kidney disease with heart failure and with stage 5 chronic kidney disease, or end stage renal disease; E11.21 Type 2 diabetes mellitus with diabetic nephropathy; E87.2 Acidosis; L97.519 Non-pressure chronic ulcer of other part of right foot with unspecified severity; E11.22 Type 2 diabetes mellitus with diabetic chronic kidney disease; J44.9 Chronic obstructive pulmonary disease, unspecified; I50.9 Heart failure, unspecified; E87.5 Hyperkalemia; E11.40 Type 2 diabetes mellitus with diabetic neuropathy, unspecified; E11.51 Type 2 diabetes mellitus with diabetic peripheral angiopathy without gangrene; E11.621 Type 2 diabetes mellitus with foot ulcer; E11.319 Type 2 diabetes mellitus with unspecified diabetic retinopathy without macular edema; N18.6 End stage renal disease; I25.10 Atherosclerotic heart disease of native coronary artery without angina pectoris; N25.81 Secondary hyperparathyroidism of renal origin; D63.1 Anemia in chronic kidney disease; E11.65 Type 2 diabetes mellitus with hyperglycemia; H54.7 Unspecified visual loss; E61.1 Iron deficiency; E78.5 Hyperlipidemia, unspecified; E78.00 Pure hypercholesterolemia, unspecified; K21.9 Gastro-esophageal reflux disease without esophagitis; Z95.1 Presence of aortocoronary bypass graft; Z90.710 Acquired absence of both cervix and uterus; Z91.19 Patient's noncompliance with other medical treatment and regimen; Z79.4 Long term (current) use of insulin; Z79.899 Other long term (current) drug therapy; Z82.49 Family history of ischemic heart disease and other diseases of the circulatory system; Z83.3 Family history of diabetes mellitus

== ENCOUNTER 2018-03-31 12:16 | Inpatient (IN) | payer MEDICAID, OTHER ==
[2018-03-31 12:16] VITALS: BMI 25.0
[2018-03-31 13:01] LABS: VENOUS BLOOD GAS BASE EXCESS 5.1 mmol/L (0.0-2.0); VENOUS BLOOD GAS PCO2 47 mmHg (40-60); VENOUS BLOOD GAS PO2 18 mm/Hg (30-55); VENOUS BLOOD PH 7.42 (7.32-7.43)
[2018-03-31 13:01] LABS: BASO # 0.1 K/uL (0.0-0.2); EOS # 0.3 K/uL (0.0-0.7); EOS % 2.9 % (0.0-4.0); LYMPH # 1.5 K/uL (1.0-4.3); LYMPH % 14.5 % (20.0-40.0); MEAN CORPUSCULAR HEMOGLOBIN 24.1 pg (27.0-31.0); MEAN CORPUSCULAR HGB CONC 32.7 g/dL (33.0-37.0); MEAN PLATELET VOLUME 8.7 fL (7.2-11.7); MONO # 0.6 K/uL (0.0-0.8); MONO % 5.8 % (0.0-10.0); NEUT # 7.7 K/uL (1.8-7.0); NEUT % 75.8 % (50.0-75.0); RBC 4.51 Mil/uL (3.80-5.20); RED CELL DISTRIBUTION WIDTH 18.2 % (11.5-14.5); WHITE BLOOD COUNT 10.2 K/uL (4.8-10.8)
[2018-03-31 13:06] LABS: HEMOGLOBIN 10.9 g/dL (11.0-16.0)
[2018-03-31 13:07] LABS: MEAN CELL VOLUME 73.7 fL (81.0-99.0)
[2018-03-31 13:24] LABS: ALB/GLOB RATIO 1.1 (1.0-2.1); CALCIUM 9.8 mg/dl (8.6-10.4)
[2018-03-31 13:28] LABS: TROPONIN I 0.031 ng/mL (0.00-0.120)
--- NOTE | 2018-03-31 13:34 | RAD ---
HISTORY: chest pain COMPARISON: Chest x-ray performed 03/13/18 TECHNIQUE: Chest, one view. FINDINGS: Right IJ approach central venous catheter with distal tips in the SVC. LUNGS: Mild left basilar atelectasis. Please note that chest x-ray has limited sensitivity for the detection of pulmonary masses. PLEURA: No significant pleural effusion identified. No definite pneumothorax . CARDIOVASCULAR: Median sternotomy wires with evidence of CABG. Cardiomegaly. Atherosclerotic calcifications of the aorta. OSSEOUS STRUCTURES: Degenerative changes. High-riding right humeral head may be seen in the setting of chronic rotator cuff injury. Evidence of calcific tendinitis bilaterally. VISUALIZED UPPER ABDOMEN: Unremarkable. OTHER FINDINGS: None. IMPRESSION: Right IJ approach dialysis catheter. Cardiomegaly. Left basilar atelectasis.
[2018-03-31] MEDS ORDERED: (Novolin R) Insulin Human Regular 100 units/ml vial IVP STA (13:53)
[2018-03-31] MEDS ORDERED: (Novolin R) Insulin Human Regular 100 units/ml vial ONE (14:02)
--- NOTE | 2018-03-31 15:28 | C.PDOC ---
Time Seen by Provider: 03/31/18 12:26 Chief Complaint (Nursing): Abnormal Skin Integrity Past Medical History Vital Signs: Last Vital Signs Temp 98.3 F 03/31/18 15:08 Pulse 93 H 03/31/18 15:08 Resp 18 03/31/18 15:08 BP 135/73 03/31/18 15:08 Pulse Ox 99 03/31/18 15:08 - Medical History PMH: Anemia, Arthritis (KNEE; BACK), CAD, COPD, Diabetes, HTN, Hypercholesterolemia Denies: Pulmonary Embolism, Chronic Kidney Disease Surgical History: CABG (09/19) - [facility] Procedures (02/17/18) ASSIST WITH CARDIAC OUTPUT USING BALLOON PUMP, INTERMITTENT (08/31/15) BYPASS LEFT BRACHIAL ARTERY TO UPPER ARM VEIN, OPEN APPROACH (02/17/18) DILATION OF R FEM ART WITH DRUG-ELUT INTRA, PERC APPROACH (01/19/18) DILATION OF RIGHT ANTERIOR TIBIAL ARTERY, PERC APPROACH (01/19/18) DILATION OF RIGHT FEMORAL ARTERY, PERCUTANEOUS APPROACH (01/19/18) DILATION OF RIGHT PERONEAL ARTERY, PERCUTANEOUS APPROACH (01/19/18) EXCISION OF DUODENUM, ENDO, DIAGN (06/07/16) EXCISION OF STOMACH, ENDO, DIAGN (06/07/16) FLUOROSCOPY OF LEFT HEART USING LOW OSMOLAR CONTRAST (08/31/15) FLUOROSCOPY OF MULT COR ART USING L OSM CONTRAST (08/31/15) INSERT INFUSION DEV IN R INT JUGULAR VEIN, PERC (02/17/18) MEASURE OF CARDIAC SAMPL & PRESSURE, L HEART, PERC APPROACH (08/31/15) TRANSFUSE NONAUT RED BLOOD CELLS IN PERIPH VEIN, PERC (03/13/15) TRANSFUSE NONAUT WHOLE BLOOD IN PERIPH VEIN, PERC (03/11/16) Family History: States: Unknown Family Hx, CAD (mother) - Social History Hx Tobacco Use: No Hx Alcohol Use: No Hx Substance Use: No - Immunization History Hx Tetanus Toxoid Vaccination: No Hx Influenza Vaccination: Yes Hx Pneumococcal Vaccination: No ED Course And Treatment - Laboratory Results Result Diagrams: 03/31/18 12:52 03/31/18 12:52 O2 Sat by Pulse Oximetry: 99
--- NOTE | 2018-03-31 15:29 | C.PDOC ---
History Of Present Illness 52 y/o female presents to ED from Dialysis clinic for evaluation of bleeding dialysis catheter. As per patient Catheter bled for 2 minutes and stopped. Currently at ED catheter not bleeding and patient has no complaints. Patient reports she has not taken DM medication for 2-3 weeks secondary to insurance issues. Patient denies fever, sob, cough or any other complaints at this time. Time Seen by Provider: 03/31/18 12:26 Chief Complaint (Nursing): Abnormal Skin Integrity History Per: Patient History/Exam Limitations: no limitations Onset/Duration Of Symptoms: Days Current Symptoms Are (Timing): Still Present Past Medical History Reviewed: Historical Data, Nursing Documentation, Vital Signs Vital Signs: Last Vital Signs Temp 98.3 F 03/31/18 15:08 Pulse 93 H 03/31/18 15:08 Resp 18 03/31/18 15:08 BP 135/73 03/31/18 15:08 Pulse Ox 99 03/31/18 15:08 - Medical History PMH: Anemia, Arthritis (KNEE; BACK), CAD, COPD, Diabetes, HTN, Hypercholesterolemia Surgical History: CABG (09/19) - [facility] Procedures (02/17/18) ASSIST WITH CARDIAC OUTPUT USING BALLOON PUMP, INTERMITTENT (08/31/15) BYPASS LEFT BRACHIAL ARTERY TO UPPER ARM VEIN, OPEN APPROACH (02/17/18) DILATION OF R FEM ART WITH DRUG-ELUT INTRA, PERC APPROACH (01/19/18) DILATION OF RIGHT ANTERIOR TIBIAL ARTERY, PERC APPROACH (01/19/18) DILATION OF RIGHT FEMORAL ARTERY, PERCUTANEOUS APPROACH (01/19/18) DILATION OF RIGHT PERONEAL ARTERY, PERCUTANEOUS APPROACH (01/19/18) EXCISION OF DUODENUM, ENDO, DIAGN (06/07/16) EXCISION OF STOMACH, ENDO, DIAGN (06/07/16) FLUOROSCOPY OF LEFT HEART USING LOW OSMOLAR CONTRAST (08/31/15) FLUOROSCOPY OF MULT COR ART USING L OSM CONTRAST (08/31/15) INSERT INFUSION DEV IN R INT JUGULAR VEIN, PERC (02/17/18) MEASURE OF CARDIAC SAMPL & PRESSURE, L HEART, PERC APPROACH (08/31/15) TRANSFUSE NONAUT RED BLOOD CELLS IN PERIPH VEIN, PERC (03/13/15) TRANSFUSE NONAUT WHOLE BLOOD IN PERIPH VEIN, PERC (03/11/16) Family History: States: CAD (mother) - Social History Hx Tobacco Use: No Hx Alcohol Use: No Hx Substance Use: No - Immunization History Hx Tetanus Toxoid Vaccination: No Hx Influenza Vaccination: Yes Hx Pneumococcal Vaccination: No Review Of Systems Constitutional: Negative for: Fever, Chills Cardiovascular: Negative for: Chest Pain Respiratory: Negative for: Cough, Shortness of Breath Gastrointestinal: Negative for: Nausea, Vomiting Skin: Positive for: Other (bleeding catheter ). Negative for: Rash Physical Exam - Physical Exam Appears: Non-toxic, No Acute Distress Skin: Warm, Dry, No Rash Head: Atraumatic, Normacephalic Eye(s): bilateral: Normal Inspection Oral Mucosa: Moist Neck: Supple Chest: Other (right chest dialysis catheter. No active bleeding noted) Cardiovascular: Rhythm Regular Respiratory: Normal Breath Sounds, No Rales, No Rhonchi, No Wheezing Gastrointestinal/Abdominal: Soft, No Tenderness, No Guarding, No Rebound Extremity: Capillary Refill (<2 seconds), No Deformity, Other (Left upper extremity AV graft. ) Neurological/Psych: Oriented x3, Normal Speech, Normal Cognition ED Course And Treatment - Laboratory Results Result Diagrams: 03/31/18 12:52 03/31/18 12:52 ECG: Interpreted By Me, Viewed By Me ECG Rhythm: Sinus Tachycardia ECG Interpretation: No Changes From Prior Interpretation Of ECG: Anterior and Lateral T wave inversion. No change from prior Rate From EC (BPM) O2 Sat by Pulse Oximetry: 99 (RA) Pulse Ox Interpretation: Normal Progress Note: Spoke with Dr. Haddad, patient will go to OBS for elevated blood sugar and dialysis. Insulin given. Disposition - Disposition Disposition: HOSPITALIZED Disposition Time: 13:30 Condition: STABLE - Clinical Impression Clinical Impression: Hyperglycemia, ESRD (end stage renal disease) on dialysis - Scribe Statement The provider has reviewed the documentation as recorded by the Evanibmarc Ying All medical record entries made by the Evanibmarc were at my direction and personally dictated by me. I have reviewed the chart and agree that the record accurately reflects my personal performance of the history, physical exam, medical decision making, and the department course for this patient. I have also personally directed, reviewed, and agree with the discharge instructions and disposition.
[2018-03-31] MEDS ORDERED: (Novolog) Insulin Aspart, Recombinant 100 u/ml 10 ml vial SC SCH (22:00)
[2018-03-31] MEDS: (Lantus) Insulin Glargine, Recombinant SC SCH (22:24)
[2018-04-01] MEDS: (Novolog) Insulin Aspart, Recombinant 100 u/ml 10 ml vial SC SCH ×6 (00:58→21:55)
[2018-04-01] MEDS: Albuterol-Ipratrop 3 mg / 0.5 (3 ml) UD INH SCH ×4 (01:36→19:40)
[2018-04-01] MEDS: Sevelamer Carb 2.4 gm/Packet PO SCH ×3 (07:58→18:51)
[2018-04-01] MEDS: Pantoprazole 40 mg EC Tab PO SCH (09:48)
[2018-04-01] MEDS: Metoprolol Succinate 25 mg XL Tab PO SCH (09:49)
--- NOTE | 2018-04-01 13:04 | CP.PCM.CON ---
History of Present Illness - History of Present Illness History of Present Illness: 52 yo [place] female with pmh/o hypertension, dm, chf, cad, pvd, s/p angioplasty of rt leg, esrd ,anemia, sec. hpth was started on hemodialysis recently and pt is being dialyzed 3 x a week in out pt hd unit in [facility]. pt went to HD unit yesterday, immediately after starting hd , as per [employer] technician, pt was bleeding from perma cath site and hd was discontinued and referred to ER for evaluation. pt denies any h/a, dizzyness, no cp, sob, cough, palpitation, nausea, vomitings, diarrhea, edema, urinary sx Review of Systems - Review of Systems All systems: reviewed and no additional remarkable complaints except Review of Systems: bleeding from perma cath site - Constitutional Constitutional: As Per HPI - EENT Eyes: As Per HPI Ears: As Per HPI Nose/Mouth/Throat: As Per HPI - Cardiovascular Cardiovascular: As Per HPI - Respiratory Respiratory: As Per HPI - Gastrointestinal Gastrointestinal: As Per HPI - Genitourinary Genitourinary: As Per HPI - Musculoskeletal Musculoskeletal: As Per HPI - Integumentary Integumentary: As Per HPI - Neurological Neurological: As Per HPI - Psychiatric Psychiatric: As Per HPI - Endocrine Endocrine: As Per HPI - Hematologic/Lymphatic Hematologic: As Per HPI Past Patient History - Infectious Disease Hx of Infectious Diseases: None - Past Medical History & Family History Past Medical History?: Yes - Past Social History Smoking Status: Never Smoked - CARDIAC Hx Hypercholesterolemia: Yes Hx Hypertension: Yes - PULMONARY Hx Chronic Obstructive Pulmonary Disease (COPD): Yes - NEUROLOGICAL Hx Neurological Disorder: Yes Hx Syncope: Yes - HEENT Hx HEENT Problems: No Hx Blind: Yes (legally blind) - RENAL Hx Chronic Kidney Disease: Yes (esrd) Hx Dialysis: Yes Type of Dialysis Access: left uE avf, rt ijv perma cath Hx Renal Failure: Yes - ENDOCRINE/METABOLIC Hx Diabetes Mellitus Type 1: Yes - HEMATOLOGICAL/ONCOLOGICAL Hx Anemia: Yes - INTEGUMENTARY Hx Dermatological Problems: No - MUSCULOSKELETAL/RHEUMATOLOGICAL Hx Arthritis: Yes (KNEE; BACK) - GASTROINTESTINAL Hx Gastrointestinal Disorders: Yes Hx Gastroesophageal Reflux: Yes - GENITOURINARY/GYNECOLOGICAL Hx Genitourinary Disorders: No - PSYCHIATRIC Hx Substance Use: No - SURGICAL HISTORY Hx Arteriovenous Shunt: Yes (left avf, rt ijv perma cath) Hx Coronary Artery Bypass Graft: Yes (09/19) - ANESTHESIA Hx Anesthesia: Yes Hx Anesthesia Reactions: No Hx Malignant Hyperthermia: No Meds Allergies/Adverse Reactions: Allergies Allergy/AdvReac Type Severity Reaction Status Date / Time No Known Allergies Allergy Verified 05/20/17 09:51 - Medications Medications: Current Medications Albuterol/Ipratropium (Duoneb 3 Mg/0.5 Mg (3 Ml) Ud) 3 ml INH RQ6 COUNTS INCLUDE 234 BEDS AT THE [facility] Last Admin: 04/01/18 09:00 Dose: Not Given Amlodipine Besylate (Norvasc) 10 mg PO DAILY [facility]S [facility]CLUDE 234 BEDS AT [facility] Last Admin: 04/01/18 09:49 Dose: Not Given Aspirin (Ecotrin) 81 mg PO DAILY [facility]CLUDE 234 BEDS AT [facility] Last Admin: 04/01/18 09:48 Dose: 81 mg Cyclobenzaprine HCl (Flexeril) 10 mg PO TID PRN PRN Reason: Pain, moderate (4-7) Ferrous Sulfate (Feosol) 325 mg PO TID [facility]S INCLUDE 234 BEDS AT THE [facility] Last Admin: 04/01/18 09:48 Dose: 325 mg Gabapentin (Neurontin) 100 mg PO TID [facility]S INCLUDE 234 BEDS AT [facility] Last Admin: 04/01/18 09:48 Dose: 100 mg Hydralazine HCl (Apresoline) 25 mg PO TID [facility]S INCLUDE 234 BEDS AT [facility] Last Admin: 04/01/18 09:48 Dose: Not Given Insulin Aspart (Novolog) 0 unit SC [facility]; Protocol Last Admin: 04/01/18 11:30 Dose: 10 units Insulin Glargine (Lantus) 24 unit SC [facility] Last Admin: 03/31/18 22:24 Dose: 24 units Metoprolol Succinate (Toprol Xl) 25 mg PO DAILY [facility]CLUDE 234 BEDS AT [facility] Last Admin: 04/01/18 09:49 Dose: Not Given Pantoprazole Sodium (Protonix Ec Tab) 40 mg PO DAILY [facility]CLUDE 234 BEDS AT [facility] Last Admin: 04/01/18 09:48 Dose: 40 mg Rosuvastatin Calcium (Crestor) 5 mg PO [facility] Last Admin: 03/31/18 22:25 Dose: 5 mg Sevelamer Carbonate (Renvela) 2.4 gm PO TIDCC COUNTS INCLUDE 234 BEDS AT THE [facility] Last Admin: 04/01/18 11:26 Dose: 2.4 gm Physical Exam - Constitutional Appears: Non-toxic, No Acute Distress - Head Exam Head Exam: ATRAUMATIC, NORMAL INSPECTION, NORMOCEPHALIC - Eye Exam Eye Exam: EOMI, Normal appearance, PERRL Pupil Exam: NORMAL ACCOMODATION Additional comments: legally blind - ENT Exam ENT Exam: Mucous Membranes Moist, Normal Exam - Neck Exam Neck exam: Positive for: Full Rom, Normal Inspection - Respiratory Exam Respiratory Exam: Clear to Auscultation Bilateral, NORMAL BREATHING PATTERN - Cardiovascular Exam Cardiovascular Exam: REGULAR RHYTHM, +S1, +S2 - GI/Abdominal Exam GI & Abdominal Exam: Normal Bowel Sounds, Soft - Rectal Exam Rectal Exam: Deferred - Extremities Exam Additional comments: no edema - Neurological Exam Neurological exam: Alert, CN II-XII Intact, Oriented x3, Reflexes Normal - Psychiatric Exam Psychiatric exam: Normal Affect, Normal Mood - Skin Skin Exam: Normal Color Results - Vital Signs Recent Vital Signs: Last Vital Signs Temp 97.4 F L 04/01/18 07:38 Pulse 87 04/01/18 07:38 Resp 20 04/01/18 07:38 BP 127/71 04/01/18 07:38 Pulse Ox 100 04/01/18 07:38 - Labs Result Diagrams: 04/01/18 14:57 04/01/18 14:57 Labs: Laboratory Results - last 24 hr 03/31/18 03/31/18 03/31/18 12:52 12:52 15:18 WBC 10.2 RBC 4.51 Hgb 10.9 L D Hct 33.2 L MCV 73.7 L D MCH 24.1 L MCHC 32.7 L RDW 18.2 H Plt Count 242 MPV 8.7 Neut % (Auto) 75.8 H Lymph % (Auto) 14.5 L [place] % (Auto) 5.8 Eos % (Auto) 2.9 Baso % (Auto) 1.0 Neut # (Auto) 7.7 H Lymph # (Auto) 1.5 [place] # (Auto) 0.6 Eos # (Auto) 0.3 Baso # (Auto) 0.1 Sodium 132 Potassium 4.5 Chloride 92 L Carbon Dioxide 31 H Anion Gap 14 BUN 32 H Creatinine 2.7 H Est GFR ( Amer) 23 Est GFR (Non-Af Amer) 19 POC Glucose (mg/dL) 361 H Random Glucose 604 H* D Calcium 9.8 Total Bilirubin 0.4 AST 21 ALT 25 Alkaline Phosphatase 149 H D Troponin I 0.0310 Total Protein 7.5 Albumin 4.0 Globulin 3.5 Albumin/Globulin Ratio 1.1 B-Hydroxybutyrate 0.18 03/31/18 03/31/18 16:19 21:05 WBC RBC Hgb Hct MCV MCH MCHC RDW Plt Count MPV Neut % (Auto) Lymph % (Auto) [place] % (Auto) Eos % (Auto) Baso % (Auto) Neut # (Auto) Lymph # (Auto) [place] # (Auto) Eos # (Auto) Baso # (Auto) Sodium Potassium Chloride Carbon Dioxide Anion Gap BUN Creatinine Est GFR ( Amer) Est GFR (Non-Af Amer) POC Glucose (mg/dL) 310 H 499 H* Random Glucose Calcium Total Bilirubin AST ALT Alkaline Phosphatase Troponin I Total Protein Albumin Globulin Albumin/Globulin Ratio B-Hydroxybutyrate Assessment & Plan - Assessment and Plan (Free Text) Assessment: 52 yo female with pmh/o htn, dm esrd, cad, pvd, anemai, sec. hpth , on hd 3 x a week was admitted with bleeding from rt ijv perma cath, unable to receive hemodialysis at the center. 1. esrd 2. htn 3. dm 4. malfunctioning perma cath will schedule for hd today, will try to use perma cath, if she develops bleeding will stop hd and request to evaluate the catheter need better control of sugars pt claims she lost her insurance when she was in the hospital and unable to get medications, can't afford follow up with social service c/w current meds Plan: as above
[2018-04-01 15:21] LABS: CALCIUM 8.7 mg/dl (8.6-10.4)
[2018-04-01 15:25] LABS: BASO # 0.1 K/uL (0.0-0.2); BASO % 0.8 % (0.0-2.0); EOS # 0.3 K/uL (0.0-0.7); EOS % 2.7 % (0.0-4.0); HEMOGLOBIN 9.5 g/dL (11.0-16.0); LYMPH # 1.6 K/uL (1.0-4.3); LYMPH % 16.3 % (20.0-40.0); MEAN CELL VOLUME 73.1 fL (81.0-99.0); MEAN CORPUSCULAR HGB CONC 32.8 g/dL (33.0-37.0); MONO # 0.6 K/uL (0.0-0.8); MONO % 6.4 % (0.0-10.0); NEUT # 7.4 K/uL (1.8-7.0); NEUT % 73.8 % (50.0-75.0); RBC 3.96 Mil/uL (3.80-5.20); RED CELL DISTRIBUTION WIDTH 18.5 % (11.5-14.5)
[2018-04-01] MEDS: (Lantus) Insulin Glargine, Recombinant SC SCH (21:55)
[2018-04-02] MEDS: Albuterol-Ipratrop 3 mg / 0.5 (3 ml) UD INH SCH ×4 (01:10→19:54)
[2018-04-02] MEDS ORDERED: (Novolin R) Insulin Human Regular 100 units/ml vial SC ONE (02:38)
[2018-04-02] MEDS: (Novolin R) Insulin Human Regular 100 units/ml vial SC SCH ×7 (08:00→21:54)
[2018-04-02] MEDS: Sevelamer Carb 2.4 gm/Packet PO SCH ×3 (08:19→17:35)
[2018-04-02 09:05] LABS: ALBUMIN 3.3 g/dL (3.5-5.0); CALCIUM 9.4 mg/dl (8.6-10.4)
[2018-04-02] MEDS: Pantoprazole 40 mg EC Tab PO SCH (10:02)
[2018-04-02] MEDS: Metoprolol Succinate 25 mg XL Tab PO SCH (10:04)
--- NOTE | 2018-04-02 11:28 | CON ---
DATE: 04/01/2018 LOCATION: Room 360. HISTORY OF PRESENT ILLNESS: This is a 52-year-old female with recent uncontrolled type 2 insulin requiring diabetes, presented here for further evaluation and management of a bleeding dialysis catheter and is now being referred for diabetic evaluation and management. PAST MEDICAL HISTORY: History of type 2 insulin-requiring diabetes, on a combination of Humalog given as 5 units t.i.d. before meals and Lantus given as 24 units subcu at bedtime daily as given. However, she has been off her insulin therapy because of financial constraints related to her insurance issues of apparent coverage of the insulin regimen. History of hypertensive cardiovascular disease and dyslipidemia, history of diabetic retinopathy, polyneuropathy and nephropathy with end-stage renal disease and dialysis dependence, history of coronary artery disease with a previous coronary artery bypass graft surgery in 2016, history of chronic obstructive lung disease with previous admissions for exacerbations of the same. FAMILY HISTORY: Positive for diabetes and hypertension. SOCIAL HISTORY: The patient has supportive family. No known substance use. REVIEW OF SYSTEMS: As mentioned above. Admits to generalized body weakness with episodic bouts of dizziness and lightheadedness, worse on the day of admission. No chest pains or palpitations or PNDs. Oral intake has been variable with nausea, dyspepsia, and vague upper abdominal pain. Also admits to have history of constipation. PHYSICAL EXAMINATION: GENERAL: An average-built female in no apparent distress. VITAL SIGNS: Blood pressure 140/80, pulse of 70 beats per minute and regular, temperature 98, respirations 20, height is 5 feet, weight is 123 pounds. HEENT: Head is normocephalic. Eyes anicteric with pink conjunctivae. Funduscopy not possible at this time. Ears, nose, and throat otherwise normal. NECK: Supple. Thyroid gland is normal in size. No carotid bruits or cervical adenopathy. CARDIOPULMONARY: Some adynamic precordium. S1 and S2, rapid and regular. LUNGS: Clear to auscultation. ABDOMEN: Flat, soft with positive bowel sounds. EXTREMITIES: No peripheral edema. Pulses are +2 bilaterally. LABORATORY DATA: The chemistry showed a BUN of 40, sodium 135, potassium 4, chloride 95, CO2 28, glucose 437, and creatinine 2.8. The glucose values have ranged from 310 to 361 and 499 mg/dL. The initial glucose was actually 604 mg/dL, as noted. ASSESSMENT: This is a 52-year-old female with recent uncontrolled type 2 insulin-requiring diabetes related to recent drug omission and is now being referred for diabetic evaluation and management. She also has diabetic microvascular complications of diabetic retinopathy, polyneuropathy, and nephropathy with end-stage renal disease and dialysis dependence. She also has diabetic macrovascular complications of coronary artery disease, peripheral arterial disease, and vasculopathy. She has had a previous coronary artery bypass graft surgery, as noted. PLAN OF MANAGEMENT: Because of the financial constraints and very expensive insulin analogs previously being used by the patient, we will switch her over to a more affordable insulin drug combinations, which are actually the more conventional and older insulin vials re-ordered thereof. We will start her with Novolin regular insulin given as 8 units t.i.d. before meals to start tomorrow morning, as ordered. We will also add basal insulin with Novolin NPH given as 24 units subcu at bedtime daily to start tonight. We will also modify the coverage using regular insulin as ordered and detailed orders have been given. We will follow. Michelle Campos MD
--- NOTE | 2018-04-02 20:03 | CP.PCM.PN ---
Subjective - Date & Time of Evaluation Date of Evaluation: 04/02/18 Time of Evaluation: 10:15 - Subjective Subjective: feels better dialysis in progress NAD Objective - Vital Signs/Intake and Output Vital Signs (last 24 hours): Temp Pulse Resp BP Pulse Ox 98 F 107 H 20 142/65 99 04/02/18 16:00 04/02/18 16:00 04/02/18 16:00 04/02/18 16:00 04/02/18 16:00 Intake and Output: 04/02/18 04/03/18 18:59 06:59 Intake Total 600 Balance 600 - Medications Medications: Current Medications Albuterol/Ipratropium (Duoneb 3 Mg/0.5 Mg (3 Ml) Ud) 3 ml INH RQ6 [facility] Last Admin: 04/02/18 19:54 Dose: 3 ml Amlodipine Besylate (Norvasc) 10 mg PO DAILY [facility] Last Admin: 04/02/18 10:03 Dose: 10 mg Aspirin (Ecotrin) 81 mg PO DAILY [facility] Last Admin: 04/02/18 10:03 Dose: 81 mg Cyclobenzaprine HCl (Flexeril) 10 mg PO TID PRN PRN Reason: Pain, moderate (4-7) Ferrous Sulfate (Feosol) 325 mg PO TID [facility] Last Admin: 04/02/18 17:34 Dose: 325 mg Gabapentin (Neurontin) 100 mg PO TID [facility] Last Admin: 04/02/18 17:34 Dose: 100 mg Heparin Sodium (Porcine) (Heparin) 3,700 units IVP TTS [facility] Stop: 04/04/18 18:01 Last Admin: 04/01/18 18:07 Dose: 3,700 units Hydralazine HCl (Apresoline) 25 mg PO TID [facility] Last Admin: 04/02/18 17:33 Dose: 25 mg Insulin Human NPH (Novolin N) 30 unit SC HS [facility] Insulin Human Regular (Novolin R) 0 unit SC ACHS [facility] Last Admin: 04/02/18 17:34 Dose: 3 unit Insulin Human Regular (Novolin R) 12 unit SC AC [facility] Last Admin: 04/02/18 17:34 Dose: 12 units Metoprolol Succinate (Toprol Xl) 25 mg PO DAILY [facility] Last Admin: 04/02/18 10:04 Dose: 25 mg Pantoprazole Sodium (Protonix Ec Tab) 40 mg PO DAILY [facility] Last Admin: 04/02/18 10:02 Dose: 40 mg Rosuvastatin Calcium (Crestor) 5 mg PO HS [facility] Last Admin: 04/01/18 21:55 Dose: 5 mg Sevelamer Carbonate (Renvela) 2.4 gm PO TIDCC [facility] Last Admin: 04/02/18 17:35 Dose: 2.4 gm - Labs Labs: 04/01/18 14:57 04/02/18 08:36 - Constitutional Appears: Non-toxic - Head Exam Head Exam: NORMAL INSPECTION - Eye Exam Eye Exam: absent: Scleral icterus - Neck Exam Neck Exam: Full ROM - Respiratory Exam Respiratory Exam: Clear to Ausculation Bilateral - Cardiovascular Exam Cardiovascular Exam: REGULAR RHYTHM - GI/Abdominal Exam GI & Abdominal Exam: Soft - Extremities Exam Extremities Exam: Full ROM - Neurological Exam Neurological Exam: Alert, Oriented x3 Assessment and Plan - Assessment and Plan (Free Text) Assessment: Uncontrolled T2dm CAD HTN ESRD Plan: Cont meds dialysis Nebulizer tx prn
--- NOTE | 2018-04-02 20:07 | CP.PCM.HP ---
History of Present Illness - History of Present Illness History of Present Illness: CC bleed at permacath site unc blood sugar HPI 52 yo Greek female with pmh/o hypertension, dm, chf, cad, pvd, s/p angioplasty of rt leg, esrd ,anemia, sec. hpth was started on hemodialysis recently and pt is being dialyzed 3 x a week in out pt hd unit in [facility]. 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 pt denies any h/a, dizzyness, no cp, sob, cough, palpitation, nausea, vomitings, diarrhea, edema, urinary sx Present on Admission - Present on Admission Any Indicators Present on Admission: Yes History of Uncontrolled Diabetes: Yes Review of Systems - Constitutional Constitutional: Weakness - EENT Eyes: Blurred Vision - Cardiovascular Cardiovascular: Dyspnea - Respiratory Respiratory: Dyspnea on Exertion - Gastrointestinal Gastrointestinal: absent: Abdominal Pain - Musculoskeletal Musculoskeletal: Muscle Weakness Past Patient History - Infectious Disease Hx of Infectious Diseases: None - Past Medical History & Family History Past Medical History?: Yes - Past Social History Smoking Status: Never Smoked - CARDIAC Hx Hypercholesterolemia: Yes Hx Hypertension: Yes - PULMONARY Hx Chronic Obstructive Pulmonary Disease (COPD): Yes - NEUROLOGICAL Hx Neurological Disorder: Yes Hx Syncope: Yes - HEENT Hx HEENT Problems: No Hx Blind: Yes (legally blind) - RENAL Hx Chronic Kidney Disease: Yes (esrd) Hx Dialysis: Yes Type of Dialysis Access: left uE avf, rt ijv perma cath Hx Renal Failure: Yes - ENDOCRINE/METABOLIC Hx Diabetes Mellitus Type 1: Yes - HEMATOLOGICAL/ONCOLOGICAL Hx Anemia: Yes - INTEGUMENTARY Hx Dermatological Problems: No - MUSCULOSKELETAL/RHEUMATOLOGICAL Hx Arthritis: Yes (KNEE; BACK) - GASTROINTESTINAL Hx Gastrointestinal Disorders: Yes Hx Gastroesophageal Reflux: Yes - GENITOURINARY/GYNECOLOGICAL Hx Genitourinary Disorders: No - PSYCHIATRIC Hx Substance Use: No - SURGICAL HISTORY Hx Arteriovenous Shunt: Yes (left avf, rt ijv perma cath) Hx Coronary Artery Bypass Graft: Yes (09/19) - ANESTHESIA Hx Anesthesia: Yes Hx Anesthesia Reactions: No Hx Malignant Hyperthermia: No Meds Allergies/Adverse Reactions: Allergies Allergy/AdvReac Type Severity Reaction Status Date / Time No Known Allergies Allergy Verified 05/20/17 09:51 Physical Exam - Constitutional Appears: Non-toxic - Head Exam Head Exam: NORMAL INSPECTION - Eye Exam Eye Exam: absent: Scleral icterus - ENT Exam ENT Exam: Mucous Membranes Moist - Neck Exam Neck exam: Positive for: Full Rom - Respiratory Exam Respiratory Exam: Decreased Breath Sounds - Cardiovascular Exam Cardiovascular Exam: REGULAR RHYTHM - GI/Abdominal Exam GI & Abdominal Exam: Soft - Extremities Exam Extremities exam: Negative for: pedal edema - Neurological Exam Neurological exam: Alert, Oriented x3 Results - Vital Signs Recent Vital Signs: Last Vital Signs Temp 98 F 04/02/18 16:00 Pulse 107 H 04/02/18 16:00 Resp 20 04/02/18 16:00 BP 142/65 04/02/18 16:00 Pulse Ox 99 04/02/18 16:00 - Labs Result Diagrams: 04/01/18 14:57 04/02/18 08:36 Labs: Laboratory Results - last 24 hr 04/02/18 04/02/18 08:36 08:36 Sodium 139 Potassium 4.0 Chloride 101 Carbon Dioxide 28 Anion Gap 14 BUN 30 H Creatinine 3.1 H Est GFR ( Amer) 19 Est GFR (Non-Af Amer) 16 Random Glucose 297 H Hemoglobin A1c 9.3 H Calcium 9.4 Phosphorus 5.0 H Total Bilirubin 0.3 AST 18 ALT 22 Alkaline Phosphatase 105 Total Protein 6.6 Albumin 3.3 L Globulin 3.3 Albumin/Globulin Ratio 1.0 Triglycerides 203 H Cholesterol 251 H LDL Cholesterol Direct 165 H HDL Cholesterol 48 TSH 3rd Generation 0.95 Assessment & Plan - Assessment and Plan (Free Text) Assessment: 1. esrd 2. htn 3. dm 4. malfunctioning perma cath 5. CAD Plan: dialysis control BS Vascular consult
--- NOTE | 2018-04-02 20:40 | PN ---
DATE: 04/02/2018 ENDO FOLLOWUP NOTE. LOCATION: Room 360. SUBJECTIVE: This is a 52-year-old female with recent uncontrolled type 2 insulin-requiring diabetes, presenting here with marked hyperglycemic accelerations related to recent drug omission and is now being followed closely for metabolic management. Her glucose values have ranged from 297 to 437 mg/dL. LABORATORY DATA: Her latest chemistries showed a BUN of 30, sodium 139, potassium 4, chloride 101, CO2 of 28, and creatinine is 3.1. PLAN: At this time, we will continue the same basal and bolus insulin regimen to allow for dose equilibration and keep her on the regular insulin given as 8 units t.i.d. before meals as ordered. We will also add NPH given as 24 units subcu at bedtime daily as needed. We will follow and advise accordingly. Michelle Campos MD
--- NOTE | 2018-04-02 21:31 | PN ---
DATE: 04/02/2018 ENDOCRINOLOGY FOLLOWUP NOTE LOCATION: Room 360. This is a 52-year-old female with recent uncontrolled type 2 insulin-requiring diabetes, presenting here with marked hyperglycemic accelerations and dehydration with underlying chronic kidney disease and is being followed closely for metabolic management. Her glycemic levels are still fluctuating as noted overnight, and the latest chemistry showed a BUN of 30, sodium 139, potassium 4, chloride 101, CO2 of 28, glucose 297, and creatinine 3.1. Her hemoglobin A1c is 9.3%. So at this time, we will modify once again her basal bolus insulin regimen and increase the NPH to 30 units subcutaneously at bedtime daily to start tonight. We will also increase the regular insulin to 12 units subcutaneously t.i.d. before meals as ordered. We will titrate incrementally as indicated to optimize metabolic control. We will obtain serial chemistries and supplement accordingly as needed. We will follow. Michelle Campos MD
[2018-04-02] MEDS ORDERED: (Novolin N) Insulin Human Isophane (NPH) 100 u/ml 10 ml vial SC SCH ×2 (22:00)
[2018-04-02] MEDS ORDERED: (Novolin N) Insulin Human Isophane (NPH) 100 u/ml 10 ml vial SC ONE (22:30)
[2018-04-03] MEDS: Albuterol-Ipratrop 3 mg / 0.5 (3 ml) UD INH SCH ×3 (02:43→20:24)
[2018-04-03] MEDS: (Novolin R) Insulin Human Regular 100 units/ml vial SC SCH ×7 (08:10→21:15)
[2018-04-03] MEDS: Sevelamer Carb 2.4 gm/Packet PO SCH ×3 (08:12→17:08)
[2018-04-03] MEDS: Pantoprazole 40 mg EC Tab PO SCH (09:54)
[2018-04-03] MEDS: Metoprolol Succinate 25 mg XL Tab PO SCH (09:54)
--- NOTE | 2018-04-03 12:46 | CP.PCM.PN ---
Subjective - Date & Time of Evaluation Date of Evaluation: 04/03/18 Time of Evaluation: 12:46 - Subjective Subjective: 52 yo Chinese female with pmh/o hypertension, dm, chf, cad, pvd, s/p angioplasty of rt leg, esrd ,anemia, sec. hpth was started on hemodialysis recently and pt is being dialyzed 3 x a week in out pt hd unit in [facility]. pt went to HD unit yesterday, immediately after starting hd , as per stress test technician, pt was bleeding from perma cath site and hd was discontinued and referred to ER for evaluation. pt denies any h/a, dizyness, no cp, sob, cough, palpitation, nausea, vomitings, diarrhea, edema, urinary sx s/p hd on tuesday with out any bleeding from rt ijv peramacath pt is stable from renal stand point to d/c home Objective - Vital Signs/Intake and Output Vital Signs (last 24 hours): Temp Pulse Resp BP Pulse Ox 98.7 F 90 20 131/73 99 04/03/18 07:00 04/03/18 07:00 04/03/18 07:00 04/03/18 07:00 04/03/18 07:00 Intake and Output: 04/03/18 04/03/18 06:59 18:59 Intake Total 470 Balance 470 - Medications Medications: Current Medications Albuterol/Ipratropium (Duoneb 3 Mg/0.5 Mg (3 Ml) Ud) 3 ml INH RQ6 [facility] Last Admin: 04/03/18 07:30 Dose: 3 ml Amlodipine Besylate (Norvasc) 10 mg PO DAILY [facility] Last Admin: 04/03/18 09:54 Dose: 10 mg Aspirin (Ecotrin) 81 mg PO DAILY [facility] Last Admin: 04/03/18 09:54 Dose: 81 mg Cyclobenzaprine HCl (Flexeril) 10 mg PO TID PRN PRN Reason: Pain, moderate (4-7) Ferrous Sulfate (Feosol) 325 mg PO TID [facility] Last Admin: 04/03/18 09:54 Dose: 325 mg Gabapentin (Neurontin) 100 mg PO TID [facility] Last Admin: 04/03/18 09:54 Dose: 100 mg Heparin Sodium (Porcine) (Heparin) 3,700 units IVP TTS [facility] Stop: 04/04/18 18:01 Last Admin: 04/01/18 18:07 Dose: 3,700 units Hydralazine HCl (Apresoline) 25 mg PO TID [facility] Last Admin: 04/03/18 09:54 Dose: 25 mg Insulin Human NPH (Novolin N) 40 unit SC HS [facility] Insulin Human Regular (Novolin R) 0 unit SC ACHS [facility] Last Admin: 04/03/18 12:24 Dose: 4 unit Insulin Human Regular (Novolin R) 12 unit SC AC [facility] Last Admin: 04/03/18 12:25 Dose: 12 units Metoprolol Succinate (Toprol Xl) 25 mg PO DAILY [facility] Last Admin: 04/03/18 09:54 Dose: 25 mg Pantoprazole Sodium (Protonix Ec Tab) 40 mg PO DAILY [facility] Last Admin: 04/03/18 09:54 Dose: 40 mg Rosuvastatin Calcium (Crestor) 5 mg PO HS [facility] Last Admin: 04/02/18 21:53 Dose: 5 mg Sevelamer Carbonate (Renvela) 2.4 gm PO TIDCC [facility] Last Admin: 04/03/18 12:21 Dose: 2.4 gm - Labs Labs: 04/01/18 14:57 04/02/18 08:36 - Constitutional Appears: Well, No Acute Distress - Head Exam Head Exam: ATRAUMATIC, NORMAL INSPECTION, NORMOCEPHALIC - Eye Exam Eye Exam: EOMI, Normal appearance, PERRL Pupil Exam: NORMAL ACCOMODATION - ENT Exam ENT Exam: Mucous Membranes Moist, Normal Exam - Neck Exam Neck Exam: Full ROM, Normal Inspection - Respiratory Exam Respiratory Exam: Clear to Ausculation Bilateral, NORMAL BREATHING PATTERN - Cardiovascular Exam Cardiovascular Exam: REGULAR RHYTHM, +S1, +S2 - GI/Abdominal Exam GI & Abdominal Exam: Soft, Normal Bowel Sounds - Rectal Exam Rectal Exam: Deferred - Neurological Exam Neurological Exam: Alert, Awake, CN II-XII Intact, Oriented x3 - Psychiatric Exam Psychiatric exam: Normal Affect, Normal Mood - Skin Skin Exam: Normal Color, Warm Assessment and Plan - Assessment and Plan (Free Text) Assessment: 52 yo GF with pmh/o htn, dm, esrd,,cad, s/p cabg, pvd, poor vision was admitted with bleeding from rt ijv perma cath 1. ESRD 2. HTN 3. Uncontrolled DM 4. CAD s/p CABG 5. PVD c/w hd 3 x a week, TTS c/w current meds stable from renal stand point to discharge home
--- NOTE | 2018-04-03 17:19 | CARD ---
APPROVED REPORT Date of service: 03/31/2018 EKG Measurement Heart [id number] <Conclusion> Normal sinus rhythm Cannot rule out Anterior infarct, age undetermined ST & T wave abnormality, consider inferolateral ischemia Abnormal ECG
[2018-04-03] MEDS: (Novolin N) Insulin Human Isophane (NPH) 100 u/ml 10 ml vial SC SCH (21:47)
[2018-04-03] MEDS ORDERED: (Novolin N) Insulin Human Isophane (NPH) 100 u/ml 10 ml vial SC SCH (22:00)
--- NOTE | 2018-04-03 23:44 | CP.PCM.PN ---
Subjective - Date & Time of Evaluation Date of Evaluation: 04/03/18 Time of Evaluation: 09:00 - Subjective Subjective: feeling ok no bleeding at permacath site BS not well controlled Objective - Vital Signs/Intake and Output Vital Signs (last 24 hours): Temp Pulse Resp BP Pulse Ox 98.8 F 103 H 20 130/62 97 04/03/18 15:30 04/03/18 15:30 04/03/18 15:30 04/03/18 15:30 04/03/18 15:30 - Medications Medications: Current Medications Albuterol/Ipratropium (Duoneb 3 Mg/0.5 Mg (3 Ml) Ud) 3 ml INH RQ6 [facility] Last Admin: 04/03/18 20:24 Dose: 3 ml Amlodipine Besylate (Norvasc) 10 mg PO DAILY [facility] Last Admin: 04/03/18 09:54 Dose: 10 mg Aspirin (Ecotrin) 81 mg PO DAILY [facility] Last Admin: 04/03/18 09:54 Dose: 81 mg Cyclobenzaprine HCl (Flexeril) 10 mg PO TID PRN PRN Reason: Pain, moderate (4-7) Ferrous Sulfate (Feosol) 325 mg PO TID [facility] Last Admin: 04/03/18 17:08 Dose: 325 mg Gabapentin (Neurontin) 100 mg PO TID [facility] Last Admin: 04/03/18 17:08 Dose: 100 mg Heparin Sodium (Porcine) (Heparin) 3,700 units IVP TTS [facility] Stop: 04/04/18 18:01 Last Admin: 04/01/18 18:07 Dose: 3,700 units Hydralazine HCl (Apresoline) 25 mg PO TID [facility] Last Admin: 04/03/18 17:08 Dose: 25 mg Insulin Human NPH (Novolin N) 60 unit SC HS [facility] Last Admin: 04/03/18 21:47 Dose: 60 units Insulin Human Regular (Novolin R) 0 unit SC ACHS [facility] Last Admin: 04/03/18 21:15 Dose: Not Given Insulin Human Regular (Novolin R) 20 unit SC AC [facility] Last Admin: 04/03/18 17:09 Dose: 20 units Metoprolol Succinate (Toprol Xl) 25 mg PO DAILY [facility] Last Admin: 04/03/18 09:54 Dose: 25 mg Pantoprazole Sodium (Protonix Ec Tab) 40 mg PO DAILY [facility] Last Admin: 10/29/18 09:54 Dose: 40 mg Rosuvastatin Calcium (Crestor) 5 mg PO HS [facility] Last Admin: 04/03/18 21:47 Dose: 5 mg Sevelamer Carbonate (Renvela) 2.4 gm PO TIDCC [facility] Last Admin: 04/03/18 17:08 Dose: 2.4 gm - Labs Labs: 04/01/18 14:57 04/02/18 08:36 - Constitutional Appears: Non-toxic - Head Exam Head Exam: NORMAL INSPECTION - Eye Exam Eye Exam: absent: Scleral icterus - Neck Exam Neck Exam: Full ROM - Respiratory Exam Respiratory Exam: Clear to Ausculation Bilateral - Cardiovascular Exam Cardiovascular Exam: REGULAR RHYTHM - GI/Abdominal Exam GI & Abdominal Exam: Soft - Extremities Exam Extremities Exam: Calf Tenderness. absent: Pedal Edema Assessment and Plan - Assessment and Plan (Free Text) Assessment: s/p bleeding at permacath site-resolved ESRD HTN Uncontrolled DM CAD s/p CABG PVD Plan: Cont hd 3 x a week, TTS Cont current meds Nebulizer tx prn Will DC when cleared by Dr Campos
--- NOTE | 2018-04-04 01:39 | PN ---
DATE: 04/03/2018 ENDOCRINOLOGY FOLLOWUP NOTE LOCATION: Room 360. SUBJECTIVE: This is a 52-year-old female with recent uncontrolled type 2 insulin-requiring diabetes with persistent hyperglycemic accelerations as noted thereof. Her glucose values today have ranged from 397 to 438 and over 500 mg/dL. LABORATORY DATA: Her chemistry showed a BUN of 30, sodium 139, potassium 4, chloride 101, CO2 of 28, glucose 297, and creatinine 3.1. PLAN: So at this time, we will modify once again her basal and bolus insulin regimen and increase NPH to 60 units subcutaneously at bedtime daily to start tonight. We will increase the regular insulin to 20 units subcutaneously t.i.d. before meals to start today as ordered. We will obtain serial chemistries and supplement accordingly as needed. We will follow. Michelle Campos MD
[2018-04-04] MEDS: Albuterol-Ipratrop 3 mg / 0.5 (3 ml) UD INH SCH ×4 (01:44→19:16)
[2018-04-04] MEDS: (Novolin R) Insulin Human Regular 100 units/ml vial SC SCH ×7 (08:08→22:33)
[2018-04-04] MEDS: Sevelamer Carb 2.4 gm/Packet PO SCH ×3 (08:22→20:51)
[2018-04-04] MEDS: Pantoprazole 40 mg EC Tab PO SCH ×2 (09:47→14:10)
--- NOTE | 2018-04-04 09:54 | CP.PCM.PN ---
Subjective - Date & Time of Evaluation Date of Evaluation: 04/04/18 Time of Evaluation: 09:54 - Subjective Subjective: pt was seen and examined during hemodailysis, c/o weakness, no sob, no cp, palpiattaion Objective - Vital Signs/Intake and Output Vital Signs (last 24 hours): Temp Pulse Resp BP Pulse Ox 97.3 F L 95 H 20 110/68 96 04/04/18 07:58 04/04/18 07:58 04/04/18 07:58 04/04/18 07:58 04/04/18 07:58 Intake and Output: 04/04/18 04/04/18 06:59 18:59 Intake Total 150 Balance 150 - Medications Medications: Current Medications Albuterol/Ipratropium (Duoneb 3 Mg/0.5 Mg (3 Ml) Ud) 3 ml INH RQ6 [facility] Last Admin: 04/04/18 08:13 Dose: 3 ml Amlodipine Besylate (Norvasc) 10 mg PO DAILY [facility] Last Admin: 04/04/18 09:51 Dose: Not Given Aspirin (Ecotrin) 81 mg PO DAILY [facility] Last Admin: 04/04/18 09:50 Dose: Not Given Cyclobenzaprine HCl (Flexeril) 10 mg PO TID PRN PRN Reason: Pain, moderate (4-7) Epoetin Tito (Procrit) 10,000 unit IV TTS [facility] Ferrous Sulfate (Feosol) 325 mg PO TID [facility] Last Admin: 04/04/18 09:50 Dose: Not Given Gabapentin (Neurontin) 100 mg PO TID [facility] Last Admin: 04/04/18 09:46 Dose: 100 mg Heparin Sodium (Porcine) (Heparin) 3,700 units IVP TTS [facility] Stop: 04/04/18 18:01 Last Admin: 04/01/18 18:07 Dose: 3,700 units Hydralazine HCl (Apresoline) 25 mg PO TID [facility] Last Admin: 04/04/18 09:50 Dose: Not Given Insulin Human NPH (Novolin N) 60 unit SC HS [facility] Last Admin: 04/03/18 21:47 Dose: 60 units Insulin Human Regular (Novolin R) 0 unit SC ACHS [facility] Last Admin: 04/04/18 08:08 Dose: Not Given Insulin Human Regular (Novolin R) 20 unit SC AC [facility] Last Admin: 04/04/18 08:24 Dose: 20 units Metoprolol Succinate (Toprol Xl) 25 mg PO DAILY [facility] Last Admin: 04/03/18 09:54 Dose: 25 mg Pantoprazole Sodium (Protonix Ec Tab) 40 mg PO DAILY [facility] Last Admin: 04/04/18 09:47 Dose: Not Given Paricalcitol (Zemplar) 2 mcg IV TTS [facility] Rosuvastatin Calcium (Crestor) 5 mg PO HS [facility] Last Admin: 04/03/18 21:47 Dose: 5 mg Sevelamer Carbonate (Renvela) 2.4 gm PO TIDCC [facility] Last Admin: 04/04/18 08:22 Dose: 2.4 gm - Labs Labs: 04/01/18 14:57 04/02/18 08:36 - Constitutional Appears: Well, Non-toxic, No Acute Distress - Head Exam Head Exam: ATRAUMATIC, NORMAL INSPECTION, NORMOCEPHALIC - Eye Exam Eye Exam: EOMI, Normal appearance, PERRL Pupil Exam: NORMAL ACCOMODATION - ENT Exam ENT Exam: Mucous Membranes Moist - Neck Exam Neck Exam: Full ROM, Normal Inspection - Respiratory Exam Respiratory Exam: Clear to Ausculation Bilateral, NORMAL BREATHING PATTERN - Cardiovascular Exam Cardiovascular Exam: Tachycardia, REGULAR RHYTHM, +S1, +S2 - Rectal Exam Rectal Exam: Deferred - Extremities Exam Additional comments: no edema of legs - Neurological Exam Neurological Exam: Alert, Awake, CN II-XII Intact, Oriented x3 - Psychiatric Exam Psychiatric exam: Normal Affect - Skin Skin Exam: Normal Color, Warm Assessment and Plan - Assessment and Plan (Free Text) Assessment: 52yo GF with pmh/o htn, dm, esrd, cad, s/p cabg, pvd s/p angiolpasty anemai, sec. hpth on hemodailysis 3 x a week 1. ESRd 2. HTn 3. DM c/w hd 3 x a week as tolerated uf goal is about 0.5 lit stable hd tx
[2018-04-04] MEDS: Epoetin Alfa 10,000 unit/ml Dialysis IV SCH (12:01)
[2018-04-04] MEDS: Paricalcitol 2 mcg/ml Inj IV SCH (12:02)
[2018-04-04] MEDS: Metoprolol Succinate 25 mg XL Tab PO SCH (14:12)
[2018-04-04] MEDS: (Novolin N) Insulin Human Isophane (NPH) 100 u/ml 10 ml vial SC SCH (22:31)
[2018-04-05] MEDS: Albuterol-Ipratrop 3 mg / 0.5 (3 ml) UD INH SCH ×4 (03:10→20:08)
[2018-04-05 07:27] LABS: BASO # 0.1 K/uL (0.0-0.2); EOS # 0.4 K/uL (0.0-0.7); EOS % 3.1 % (0.0-4.0); HEMOGLOBIN 8.2 g/dL (11.0-16.0); LYMPH # 2.4 K/uL (1.0-4.3); LYMPH % 20.1 % (20.0-40.0); MEAN CELL VOLUME 73.5 fL (81.0-99.0); MEAN CORPUSCULAR HEMOGLOBIN 23.8 pg (27.0-31.0); MEAN CORPUSCULAR HGB CONC 32.4 g/dL (33.0-37.0); MEAN PLATELET VOLUME 9.3 fL (7.2-11.7); MONO # 0.8 K/uL (0.0-0.8); MONO % 7.1 % (0.0-10.0); NEUT # 8.2 K/uL (1.8-7.0); NEUT % 68.7 % (50.0-75.0); RBC 3.44 Mil/uL (3.80-5.20); RED CELL DISTRIBUTION WIDTH 18.9 % (11.5-14.5); WHITE BLOOD COUNT 11.9 K/uL (4.8-10.8)
[2018-04-05] MEDS: (Novolin R) Insulin Human Regular 100 units/ml vial SC SCH ×7 (07:37→22:11)
[2018-04-05] MEDS: Sevelamer Carb 2.4 gm/Packet PO SCH ×3 (08:16→17:51)
[2018-04-05] MEDS: Pantoprazole 40 mg EC Tab PO SCH (10:07)
[2018-04-05] MEDS: Metoprolol Succinate 25 mg XL Tab PO SCH (10:10)
--- NOTE | 2018-04-05 13:06 | CP.PCM.PN ---
Subjective - Date & Time of Evaluation Date of Evaluation: 04/05/18 Time of Evaluation: 13:06 - Subjective Subjective: pt is feeling better c/o Bleeding per rectum, scheduled for colonoscopy tomorrow, Objective - Vital Signs/Intake and Output Vital Signs (last 24 hours): Temp Pulse Resp BP Pulse Ox 98 F 110 H 20 123/64 99 04/05/18 07:54 04/05/18 07:54 04/05/18 07:54 04/05/18 07:54 04/05/18 07:54 Intake and Output: 04/05/18 04/05/18 06:59 18:59 Intake Total 200 Balance 200 - Medications Medications: Current Medications Albuterol/Ipratropium (Duoneb 3 Mg/0.5 Mg (3 Ml) Ud) 3 ml INH RQ6 [facility] Last Admin: 04/05/18 07:33 Dose: 3 ml Amlodipine Besylate (Norvasc) 10 mg PO DAILY [facility] Last Admin: 04/05/18 10:10 Dose: 10 mg Aspirin (Ecotrin) 81 mg PO DAILY [facility] Last Admin: 04/04/18 09:50 Dose: Not Given Cyclobenzaprine HCl (Flexeril) 10 mg PO TID PRN PRN Reason: Pain, moderate (4-7) Epoetin Tito (Procrit) 10,000 unit IV TTS [facility] Last Admin: 04/04/18 12:01 Dose: 10,000 unit Ferrous Sulfate (Feosol) 325 mg PO TID [facility] Last Admin: 04/05/18 10:08 Dose: 325 mg Gabapentin (Neurontin) 100 mg PO TID [facility] Last Admin: 04/05/18 10:09 Dose: 100 mg Hydralazine HCl (Apresoline) 25 mg PO TID [facility] Last Admin: 04/05/18 10:10 Dose: 25 mg Insulin Human NPH (Novolin N) 60 unit SC HS [facility] Last Admin: 04/04/18 22:31 Dose: 60 units Insulin Human Regular (Novolin R) 0 unit SC ACHS [facility] Last Admin: 04/05/18 11:49 Dose: Not Given Insulin Human Regular (Novolin R) 20 unit SC AC [facility] Last Admin: 04/05/18 12:03 Dose: 20 units Metoprolol Succinate (Toprol Xl) 25 mg PO DAILY [facility] Last Admin: 04/05/18 10:10 Dose: 25 mg Pantoprazole Sodium (Protonix Ec Tab) 40 mg PO DAILY [facility] Last Admin: 04/05/18 10:07 Dose: 40 mg Paricalcitol (Zemplar) 2 mcg IV TTS [facility] Last Admin: 04/04/18 12:02 Dose: 2 mcg Rosuvastatin Calcium (Crestor) 5 mg PO HS [facility] Last Admin: 04/04/18 22:31 Dose: 5 mg Sevelamer Carbonate (Renvela) 2.4 gm PO TIDCC [facility] Last Admin: 04/05/18 12:02 Dose: 2.4 gm Zolpidem Tartrate (Ambien) 5 mg PO HS [facility] Last Admin: 04/04/18 22:31 Dose: 5 mg - Labs Labs: 04/05/18 07:10 04/02/18 08:36 - Constitutional Appears: Well, Non-toxic, No Acute Distress - Head Exam Head Exam: ATRAUMATIC, NORMAL INSPECTION, NORMOCEPHALIC - Eye Exam Eye Exam: EOMI, Normal appearance, PERRL Pupil Exam: NORMAL ACCOMODATION - ENT Exam ENT Exam: Mucous Membranes Moist - Neck Exam Neck Exam: Full ROM - Respiratory Exam Respiratory Exam: Clear to Ausculation Bilateral, NORMAL BREATHING PATTERN - Cardiovascular Exam Cardiovascular Exam: REGULAR RHYTHM, +S1, +S2 - Rectal Exam Rectal Exam: Deferred - Extremities Exam Additional comments: no edema of legs - Neurological Exam Neurological Exam: Alert, Awake, CN II-XII Intact, Oriented x3 - Psychiatric Exam Psychiatric exam: Normal Affect, Normal Mood - Skin Skin Exam: Normal Color, Warm Assessment and Plan - Assessment and Plan (Free Text) Assessment: 52 yo GF with pmh/o htn, dm,hld, cad s/p cabg, pvd, s/p angioplasty, ESRD on hd 3 xa week, with blood per rectum 1. ESRD 2. HTN 3. DM 4. Anemia c/w hd 3 x a week TTS for colonoscopy in am follow up with GI
[2018-04-05 13:53] LABS: PROTHROMBIN TIME 10.9 SECONDS (9.7-12.2)
[2018-04-05 15:00] LABS: FOLATE 12.1 ng/mL
[2018-04-05] MEDS ORDERED: Peg-Electrolyte Oral Soln 4L (Golytely) PO ONE (15:00)
[2018-04-05] MEDS ORDERED: Bisacodyl 5mg EC Tab PO ONE (18:00)
[2018-04-05] MEDS: (Novolin N) Insulin Human Isophane (NPH) 100 u/ml 10 ml vial SC SCH (22:11)
[2018-04-06] MEDS: Albuterol-Ipratrop 3 mg / 0.5 (3 ml) UD INH SCH ×2 (01:30→20:39)
[2018-04-06 06:50] LABS: BASO # 0.1 K/uL (0.0-0.2); BASO % 0.9 % (0.0-2.0); EOS # 0.4 K/uL (0.0-0.7); EOS % 3.4 % (0.0-4.0); HEMOGLOBIN 7.8 g/dL (11.0-16.0); LYMPH # 2.1 K/uL (1.0-4.3); LYMPH % 16.6 % (20.0-40.0); MEAN CORPUSCULAR HEMOGLOBIN 23.9 pg (27.0-31.0); MEAN CORPUSCULAR HGB CONC 32.8 g/dL (33.0-37.0); MEAN PLATELET VOLUME 8.9 fL (7.2-11.7); MONO # 0.8 K/uL (0.0-0.8); MONO % 6.2 % (0.0-10.0); NEUT % 72.9 % (50.0-75.0); RBC 3.25 Mil/uL (3.80-5.20); WHITE BLOOD COUNT 12.4 K/uL (4.8-10.8)
[2018-04-06] MEDS: (Novolin R) Insulin Human Regular 100 units/ml vial SC SCH ×7 (08:20→23:02)
[2018-04-06] MEDS: Sevelamer Carb 2.4 gm/Packet PO SCH ×3 (08:20→18:14)
[2018-04-06 08:23] LABS: CALCIUM 8.8 mg/dl (8.6-10.4)
[2018-04-06] MEDS ORDERED: (Novolin R) Insulin Human Regular 100 units/ml vial IVP ONE (08:30)
[2018-04-06] MEDS ORDERED: Propofol 10 mg/ml Inj (20 ML) ONE (08:36)
[2018-04-06] MEDS ORDERED: Midazolam 2 MG/2 ML VIAL ONE (08:36)
[2018-04-06] MEDS ORDERED: Etomidate 20 mg/10ml Inj IV ONE (08:37)
[2018-04-06] MEDS ORDERED: ePHEDrine 50 mg/ml Inj ONE (08:37)
--- NOTE | 2018-04-06 09:38 | CP.PCM.PN ---
Subjective - Date & Time of Evaluation Date of Evaluation: 04/06/18 Time of Evaluation: 09:38 - Subjective Subjective: pt denies any complaints, s/p EGD, colonoscopy this am denies any cp, sob, for hd this afternoon Objective - Vital Signs/Intake and Output Vital Signs (last 24 hours): Temp Pulse Resp BP Pulse Ox 98.6 F 99 H 22 109/71 96 04/06/18 09:10 04/06/18 09:25 04/06/18 09:25 04/06/18 09:25 04/06/18 09:25 Intake and Output: 04/06/18 04/06/18 06:59 18:59 Intake Total 200 Balance 200 - Medications Medications: Current Medications Amlodipine Besylate (Norvasc) 10 mg PO DAILY [facility] Last Admin: 04/05/18 10:10 Dose: 10 mg Aspirin (Ecotrin) 81 mg PO DAILY [facility] Last Admin: 04/04/18 09:50 Dose: Not Given Cyclobenzaprine HCl (Flexeril) 10 mg PO TID PRN PRN Reason: Pain, moderate (4-7) Epoetin Tito (Procrit) 10,000 unit IV TTS [facility] Last Admin: 04/04/18 12:01 Dose: 10,000 unit Ferrous Sulfate (Feosol) 325 mg PO TID [facility] Last Admin: 04/05/18 17:49 Dose: 325 mg Gabapentin (Neurontin) 100 mg PO TID [facility] Last Admin: 04/05/18 17:49 Dose: 100 mg Hydralazine HCl (Apresoline) 25 mg PO TID [facility] Last Admin: 04/05/18 17:49 Dose: 25 mg Hydrocortisone (Anusol-Hc) 0 gm [place] BID ONE Stop: 04/06/18 10:01 Insulin Human NPH (Novolin N) 60 unit SC HS [facility] Last Admin: 04/05/18 22:11 Dose: Not Given Insulin Human Regular (Novolin R) 0 unit SC ACHS [facility] Last Admin: 04/06/18 08:20 Dose: Not Given Insulin Human Regular (Novolin R) 20 unit SC AC [facility] Last Admin: 04/06/18 08:20 Dose: Not Given Mesalamine (Canasa) 1,000 mg [place] BID [facility] Metoprolol Succinate (Toprol Xl) 25 mg PO DAILY [facility] Last Admin: 04/05/18 10:10 Dose: 25 mg Pantoprazole Sodium (Protonix Ec Tab) 40 mg PO DAILY [facility] Last Admin: 04/05/18 10:07 Dose: 40 mg Paricalcitol (Zemplar) 2 mcg IV TTS [facility] Last Admin: 04/04/18 12:02 Dose: 2 mcg Rosuvastatin Calcium (Crestor) 5 mg PO HS [facility] Last Admin: 04/05/18 22:10 Dose: 5 mg Sevelamer Carbonate (Renvela) 2.4 gm PO TIDCC [facility] Last Admin: 04/06/18 08:20 Dose: Not Given Zolpidem Tartrate (Ambien) 5 mg PO HS [facility] Last Admin: 04/05/18 22:10 Dose: Not Given - Labs Labs: 04/06/18 06:45 04/06/18 08:00 PT 10.9 SECONDS (9.7-12.2) 04/05/18 13:40 INR 1.0 04/05/18 13:40 APTT 29 SECONDS (21-34) 04/05/18 13:40 - Constitutional Appears: Well, Non-toxic, No Acute Distress - Head Exam Head Exam: ATRAUMATIC, NORMAL INSPECTION, NORMOCEPHALIC - Eye Exam Eye Exam: EOMI, Normal appearance, PERRL Pupil Exam: NORMAL ACCOMODATION - ENT Exam ENT Exam: Mucous Membranes Moist - Neck Exam Neck Exam: Full ROM, Normal Inspection - Respiratory Exam Respiratory Exam: Clear to Ausculation Bilateral, NORMAL BREATHING PATTERN - Cardiovascular Exam Cardiovascular Exam: REGULAR RHYTHM, +S1, +S2 - GI/Abdominal Exam GI & Abdominal Exam: Soft, Normal Bowel Sounds - Rectal Exam Rectal Exam: Deferred - Neurological Exam Neurological Exam: Alert, Awake, CN II-XII Intact, Oriented x3 - Skin Skin Exam: Normal Color, Warm Assessment and Plan - Assessment and Plan (Free Text) Assessment: 52 yo GF with pmh/o htn,dm, chf, cad, s/p cabg, anemia, [facility] was admitted with malfunctioning perma cath, s/p egd and colonoscopy for anemia 1.ESRD 2.Anemia 3.HTN 4.DM for HD today consider to transfuse 1 unit PRBC c/w current meds. stable from renal stand point
[2018-04-06] MEDS ORDERED: Hydrocortisone 2.5% Rectal Cream(30 gm) PR ONE (10:00)
[2018-04-06] MEDS: Pantoprazole 40 mg EC Tab PO SCH (13:07)
[2018-04-06] MEDS: Metoprolol Succinate 25 mg XL Tab PO SCH (13:27)
[2018-04-06] MEDS: Epoetin Alfa 10,000 unit/ml Dialysis IV SCH (17:18)
[2018-04-06] MEDS: Paricalcitol 2 mcg/ml Inj IV SCH (17:19)
[2018-04-06] MEDS: (Novolin N) Insulin Human Isophane (NPH) 100 u/ml 10 ml vial SC SCH (22:00)
--- NOTE | 2018-04-06 23:27 | CON ---
LOCATION: [facility], bed B. SUBJECTIVE: I was called for a GI consultation by the admitting MD. The patient is seen and fully examined on 04/05/2018 as requested by the admitting medical staff. The entire chart is reviewed including but not limited to the most recent lab and radiology study results, current and the previous medication list, current and the previous medical events. Case discussed with the staff at length. A shorthand writing consultation sheet left in the chart at the time of my GI consultation on 04/05/2018. HISTORY OF PRESENT ILLNESS: This is a 52-year-old female with a known history of end-stage renal disease, on hemodialysis who was admitted to the hospital with multiple complaints including recently recurrent rectal bleeding, dyspepsia, nausea with recent change of bowel movement habit of unclear etiology while she is in the hospital. It has to be mentioned that the patient denied any chest pain, palpitations, significant shortness of breath, chills or fever recently, but rectal bleeding consistent of fresh blood with some old blood and black tarry stool. PAST MEDICAL HISTORY: Including but not limited to: 1. Diabetes mellitus, poorly controlled. 2. Hypertension, coronary artery disease, status post CABG. 3. History of arthritis. 4. COPD with hyperlipidemia. FAMILY HISTORY: Unknown, unrelated to specific GI disorder. SOCIAL HISTORY: No known history of cigarette smoking or alcohol intake. CURRENT MEDICATIONS: Post admission medication list is reviewed. ALLERGIES TO MEDICATIONS: UNKNOWN. Most recent lab results at the time of my GI consultation showed white blood cells of 11.9, hemoglobin 8.2, hematocrit 25.3 with low indices, with blood glucose level 162. The patient reported to have increased BUN and creatinine with low albumin and low total protein. PHYSICAL EXAMINATION: GENERAL: A 52-year-old female, appeared to be awake, alert. VITAL SIGNS: Afebrile, with heart rate of 108, respiratory rate 20-22, blood pressure 124/66. HEENT: Showed pale, dry mucous membranes. Nonicteric sclerae. LUNGS: Few scattered crepitations. Decreased air entry at bases. HEART: Positive S1 and S2. ABDOMEN: With mild generalized tenderness. No mass or organomegaly. No rebound tenderness or guarding. RECTAL: The patient refused. EXTREMITIES: Without significant clubbing or cyanosis, but with mild lower extremity edematous changes. NEUROLOGICAL: No reported new neurological deficits, sensory or motor. IMPRESSION: 1. Gastrointestinal bleeding, upper versus lower. 2. Anemia secondary to above versus chronic disease. 3. Rule out upper gastrointestinal malignancy. 4. Multiple past medical history as mentioned above. SUGGESTIONS: 1. Agree with your plan. 2. Hold any anticoagulation, and no heparin during dialysis at the same time. 3. Endoscopic evaluation of the GI tract after adequate preparation. 5. Anusol cream HC local rectal apply twice a day. 6. Further recommendations to follow after further endoscopic evaluation of the GI tract. Thank you for letting me participate in your patient's case management. We will follow up closely with you. Ryne Sosa MD
--- NOTE | 2018-04-06 23:36 | CP.PCM.PN ---
Subjective - Date & Time of Evaluation Date of Evaluation: 04/04/18 Time of Evaluation: 08:00 - Subjective Subjective: weak fluctuating BS NAD Objective - Vital Signs/Intake and Output Vital Signs (last 24 hours): Temp Pulse Resp BP Pulse Ox 98.3 F 96 H 20 105/64 96 04/06/18 23:00 04/06/18 23:00 04/06/18 23:00 04/06/18 23:00 04/06/18 17:05 Intake and Output: 04/06/18 04/07/18 18:59 06:59 Intake Total 250 0 Balance 250 0 - Medications Medications: Current Medications Albuterol/Ipratropium (Duoneb 3 Mg/0.5 Mg (3 Ml) Ud) 3 ml INH RQ6 [facility] Last Admin: 04/06/18 20:39 Dose: Not Given Amlodipine Besylate (Norvasc) 10 mg PO DAILY [facility] Last Admin: 04/06/18 13:06 Dose: Not Given Aspirin (Ecotrin) 81 mg PO DAILY [facility] Last Admin: 04/04/18 09:50 Dose: Not Given Cyclobenzaprine HCl (Flexeril) 10 mg PO TID PRN PRN Reason: Pain, moderate (4-7) Epoetin Tito (Procrit) 10,000 unit IV TTS [facility] Last Admin: 04/06/18 17:18 Dose: 10,000 unit Ferrous Sulfate (Feosol) 325 mg PO TID [facility] Last Admin: 04/06/18 18:12 Dose: 325 mg Gabapentin (Neurontin) 100 mg PO TID [facility] Last Admin: 04/06/18 18:12 Dose: 100 mg Hydralazine HCl (Apresoline) 25 mg PO TID [facility] Last Admin: 04/06/18 18:12 Dose: 25 mg Insulin Human NPH (Novolin N) 60 unit SC HS [facility] Last Admin: 04/06/18 22:00 Dose: Not Given Insulin Human Regular (Novolin R) 0 unit SC ACHS [facility] Last Admin: 04/06/18 23:02 Dose: Not Given Insulin Human Regular (Novolin R) 20 unit SC AC [facility] Last Admin: 04/06/18 18:13 Dose: 20 units Mesalamine (Canasa) 1,000 mg [place] BID [facility] Last Admin: 04/06/18 18:17 Dose: 1,000 mg Metoprolol Succinate (Toprol Xl) 25 mg PO DAILY [facility] Last Admin: 04/06/18 13:27 Dose: Not Given Pantoprazole Sodium (Protonix Ec Tab) 40 mg PO DAILY [facility] Last Admin: 04/06/18 13:07 Dose: 40 mg Paricalcitol (Zemplar) 2 mcg IV TTS [facility] Last Admin: 04/06/18 17:19 Dose: 2 mcg Rosuvastatin Calcium (Crestor) 5 mg PO HS [facility] Last Admin: 04/06/18 21:59 Dose: 5 mg Sevelamer Carbonate (Renvela) 2.4 gm PO TIDCC [facility] Last Admin: 04/06/18 18:14 Dose: 2.4 gm Zolpidem Tartrate (Ambien) 5 mg PO HS [facility] Last Admin: 04/06/18 21:59 Dose: 5 mg - Labs Labs: 04/06/18 06:45 04/06/18 08:00 PT 10.9 SECONDS (9.7-12.2) 04/05/18 13:40 INR 1.0 04/05/18 13:40 APTT 29 SECONDS (21-34) 04/05/18 13:40 - Constitutional Appears: Non-toxic - Head Exam Head Exam: NORMAL INSPECTION - Eye Exam Eye Exam: absent: Scleral icterus - Neck Exam Neck Exam: Full ROM - Respiratory Exam Respiratory Exam: Decreased Breath Sounds - Cardiovascular Exam Cardiovascular Exam: REGULAR RHYTHM - GI/Abdominal Exam GI & Abdominal Exam: Soft - Neurological Exam Neurological Exam: Alert, Oriented x3 Assessment and Plan - Assessment and Plan (Free Text) Assessment: ESRD CAD T2dm HTN Plan: HD Cont meds
--- NOTE | 2018-04-06 23:41 | CP.PCM.PN ---
Subjective - Date & Time of Evaluation Date of Evaluation: 04/06/18 Time of Evaluation: 10:00 - Subjective Subjective: Hb dropped 7.8 s/p upper endoscopy and colonoscopy Objective - Vital Signs/Intake and Output Vital Signs (last 24 hours): Temp Pulse Resp BP Pulse Ox 98.3 F 96 H 20 105/64 96 04/06/18 23:00 04/06/18 23:00 04/06/18 23:00 04/06/18 23:00 04/06/18 17:05 Intake and Output: 04/06/18 04/07/18 18:59 06:59 Intake Total 250 0 Balance 250 0 - Medications Medications: Current Medications Albuterol/Ipratropium (Duoneb 3 Mg/0.5 Mg (3 Ml) Ud) 3 ml INH RQ6 [facility] Last Admin: 04/06/18 20:39 Dose: Not Given Amlodipine Besylate (Norvasc) 10 mg PO DAILY [facility] Last Admin: 04/06/18 13:06 Dose: Not Given Aspirin (Ecotrin) 81 mg PO DAILY [facility] Last Admin: 04/04/18 09:50 Dose: Not Given Cyclobenzaprine HCl (Flexeril) 10 mg PO TID PRN PRN Reason: Pain, moderate (4-7) Epoetin Tito (Procrit) 10,000 unit IV TTS [facility] Last Admin: 04/06/18 17:18 Dose: 10,000 unit Ferrous Sulfate (Feosol) 325 mg PO TID [facility] Last Admin: 04/06/18 18:12 Dose: 325 mg Gabapentin (Neurontin) 100 mg PO TID [facility] Last Admin: 04/06/18 18:12 Dose: 100 mg Hydralazine HCl (Apresoline) 25 mg PO TID [facility] Last Admin: 04/06/18 18:12 Dose: 25 mg Insulin Human NPH (Novolin N) 60 unit SC HS [facility] Last Admin: 04/06/18 22:00 Dose: Not Given Insulin Human Regular (Novolin R) 0 unit SC ACHS [facility] Last Admin: 04/06/18 23:02 Dose: Not Given Insulin Human Regular (Novolin R) 20 unit SC AC [facility] Last Admin: 04/06/18 18:13 Dose: 20 units Mesalamine (Canasa) 1,000 mg [place] BID [facility] Last Admin: 04/06/18 18:17 Dose: 1,000 mg Metoprolol Succinate (Toprol Xl) 25 mg PO DAILY [facility] Last Admin: 04/06/18 13:27 Dose: Not Given Pantoprazole Sodium (Protonix Ec Tab) 40 mg PO DAILY [facility] Last Admin: 04/06/18 13:07 Dose: 40 mg Paricalcitol (Zemplar) 2 mcg IV TTS [facility] Last Admin: 04/06/18 17:19 Dose: 2 mcg Rosuvastatin Calcium (Crestor) 5 mg PO HS [facility] Last Admin: 04/06/18 21:59 Dose: 5 mg Sevelamer Carbonate (Renvela) 2.4 gm PO TIDCC [facility] Last Admin: 04/06/18 18:14 Dose: 2.4 gm Zolpidem Tartrate (Ambien) 5 mg PO HS [facility] Last Admin: 04/06/18 21:59 Dose: 5 mg - Labs Labs: 04/06/18 06:45 04/06/18 08:00 PT 10.9 SECONDS (9.7-12.2) 04/05/18 13:40 INR 1.0 04/05/18 13:40 APTT 29 SECONDS (21-34) 04/05/18 13:40 - Constitutional Appears: Non-toxic - Head Exam Head Exam: NORMAL INSPECTION - Eye Exam Eye Exam: absent: Scleral icterus - ENT Exam ENT Exam: Mucous Membranes Moist - Neck Exam Neck Exam: Full ROM - Respiratory Exam Respiratory Exam: Decreased Breath Sounds - Cardiovascular Exam Cardiovascular Exam: REGULAR RHYTHM - GI/Abdominal Exam GI & Abdominal Exam: Soft - Extremities Exam Extremities Exam: absent: Pedal Edema Assessment and Plan - Assessment and Plan (Free Text) Assessment: Anemia ? source ESRD T2dm, improving HTN Plan: Will need blood transfusion HD
--- NOTE | 2018-04-06 23:47 | CP.PCM.PN ---
Subjective - Date & Time of Evaluation Date of Evaluation: 04/05/18 Time of Evaluation: 08:00 - Subjective Subjective: rectal bleeding H/H dropping GI on case Colonoscopy in am Objective - Vital Signs/Intake and Output Vital Signs (last 24 hours): Temp Pulse Resp BP Pulse Ox 98.3 F 96 H 20 105/64 96 04/06/18 23:00 04/06/18 23:00 04/06/18 23:00 04/06/18 23:00 04/06/18 17:05 Intake and Output: 04/06/18 04/07/18 18:59 06:59 Intake Total 250 0 Balance 250 0 - Medications Medications: Current Medications Albuterol/Ipratropium (Duoneb 3 Mg/0.5 Mg (3 Ml) Ud) 3 ml INH RQ6 [facility] Last Admin: 04/06/18 20:39 Dose: Not Given Amlodipine Besylate (Norvasc) 10 mg PO DAILY [facility] Last Admin: 04/06/18 13:06 Dose: Not Given Aspirin (Ecotrin) 81 mg PO DAILY [facility] Last Admin: 04/04/18 09:50 Dose: Not Given Cyclobenzaprine HCl (Flexeril) 10 mg PO TID PRN PRN Reason: Pain, moderate (4-7) Epoetin Tito (Procrit) 10,000 unit IV TTS [facility] Last Admin: 04/06/18 17:18 Dose: 10,000 unit Ferrous Sulfate (Feosol) 325 mg PO TID [facility] Last Admin: 04/06/18 18:12 Dose: 325 mg Gabapentin (Neurontin) 100 mg PO TID [facility] Last Admin: 04/06/18 18:12 Dose: 100 mg Hydralazine HCl (Apresoline) 25 mg PO TID [facility] Last Admin: 04/06/18 18:12 Dose: 25 mg Insulin Human NPH (Novolin N) 60 unit SC HS [facility] Last Admin: 04/06/18 22:00 Dose: Not Given Insulin Human Regular (Novolin R) 0 unit SC ACHS [facility] Last Admin: 04/06/18 23:02 Dose: Not Given Insulin Human Regular (Novolin R) 20 unit SC AC [facility] Last Admin: 04/06/18 18:13 Dose: 20 units Mesalamine (Canasa) 1,000 mg [place] BID [facility] Last Admin: 11/01/18 18:17 Dose: 1,000 mg Metoprolol Succinate (Toprol Xl) 25 mg PO DAILY [facility] Last Admin: 04/06/18 13:27 Dose: Not Given Pantoprazole Sodium (Protonix Ec Tab) 40 mg PO DAILY [facility] Last Admin: 04/06/18 13:07 Dose: 40 mg Paricalcitol (Zemplar) 2 mcg IV TTS [facility] Last Admin: 04/06/18 17:19 Dose: 2 mcg Rosuvastatin Calcium (Crestor) 5 mg PO HS [facility] Last Admin: 04/06/18 21:59 Dose: 5 mg Sevelamer Carbonate (Renvela) 2.4 gm PO TIDCC [facility] Last Admin: 04/06/18 18:14 Dose: 2.4 gm Zolpidem Tartrate (Ambien) 5 mg PO HS [facility] Last Admin: 04/06/18 21:59 Dose: 5 mg - Labs Labs: 04/06/18 06:45 04/06/18 08:00 PT 10.9 SECONDS (9.7-12.2) 04/05/18 13:40 INR 1.0 04/05/18 13:40 APTT 29 SECONDS (21-34) 04/05/18 13:40 - Constitutional Appears: Non-toxic - Head Exam Head Exam: NORMAL INSPECTION - Eye Exam Eye Exam: absent: Scleral icterus - ENT Exam ENT Exam: Mucous Membranes Moist - Neck Exam Neck Exam: Full ROM - Respiratory Exam Respiratory Exam: Decreased Breath Sounds - Cardiovascular Exam Cardiovascular Exam: REGULAR RHYTHM - GI/Abdominal Exam GI & Abdominal Exam: Soft - Exam External exam: Erythema - Extremities Exam Extremities Exam: absent: Pedal Edema Assessment and Plan - Assessment and Plan (Free Text) Assessment: Rectal bleeding ESRD CAD T2dm Plan: Ok for colonoscopy
[2018-04-06 23:48] VITALS: O2SAT 95
[2018-04-07] MEDS: Albuterol-Ipratrop 3 mg / 0.5 (3 ml) UD INH SCH ×4 (03:19→21:03)
[2018-04-07 06:49] LABS: BASO # 0.1 K/uL (0.0-0.2); EOS # 0.3 K/uL (0.0-0.7); EOS % 3.1 % (0.0-4.0); HEMOGLOBIN 9.3 g/dL (11.0-16.0); LYMPH # 1.5 K/uL (1.0-4.3); LYMPH % 14.4 % (20.0-40.0); MEAN CELL VOLUME 75.9 fL (81.0-99.0); MEAN CORPUSCULAR HEMOGLOBIN 25.3 pg (27.0-31.0); MEAN CORPUSCULAR HGB CONC 33.3 g/dL (33.0-37.0); MEAN PLATELET VOLUME 9.6 fL (7.2-11.7); MONO # 0.6 K/uL (0.0-0.8); MONO % 5.5 % (0.0-10.0); NEUT # 7.8 K/uL (1.8-7.0); NRBC % 0.2 % (0.0-2.0); RBC 3.67 Mil/uL (3.80-5.20); RED CELL DISTRIBUTION WIDTH 20.6 % (11.5-14.5); WHITE BLOOD COUNT 10.3 K/uL (4.8-10.8)
[2018-04-07] MEDS: Sevelamer Carb 2.4 gm/Packet PO SCH ×3 (07:50→17:53)
[2018-04-07] MEDS: (Novolin R) Insulin Human Regular 100 units/ml vial SC SCH ×6 (08:06→17:52)
[2018-04-07 08:27] VITALS: RESP 20
[2018-04-07] MEDS: Metoprolol Succinate 25 mg XL Tab PO SCH (09:46)
[2018-04-07] MEDS: Pantoprazole 40 mg EC Tab PO SCH (09:47)
--- NOTE | 2018-04-07 12:08 | CP.PCM.PN ---
Subjective - Date & Time of Evaluation Date of Evaluation: 04/07/18 Time of Evaluation: 12:07 - Subjective Subjective: pt is feeling better, no sob, no cp, no palpitation Objective - Vital Signs/Intake and Output Vital Signs (last 24 hours): Temp Pulse Resp BP Pulse Ox 97.5 F L 104 H 20 159/104 H 95 04/07/18 08:26 04/07/18 08:26 04/07/18 08:26 04/07/18 08:26 04/07/18 08:26 Intake and Output: 04/07/18 04/07/18 06:59 18:59 Intake Total 745 Balance 745 - Medications Medications: Current Medications Albuterol/Ipratropium (Duoneb 3 Mg/0.5 Mg (3 Ml) Ud) 3 ml INH RQ6 [facility] [place] Last Admin: 04/07/18 07:43 Dose: 3 ml Amlodipine Besylate (Norvasc) 10 mg PO DAILY [facility] [place] Last Admin: 04/07/18 09:46 Dose: 10 mg Aspirin (Ecotrin) 81 mg PO DAILY [facility] [place] Last Admin: 04/04/18 09:50 Dose: Not Given Cyclobenzaprine HCl (Flexeril) 10 mg PO TID PRN PRN Reason: Pain, moderate (4-7) Epoetin Tito (Procrit) 10,000 unit IV TTS [facility] [place] Last Admin: 04/06/18 17:18 Dose: 10,000 unit Ferrous Sulfate (Feosol) 325 mg PO TID [facility] [place] Last Admin: 04/07/18 09:46 Dose: 325 mg Gabapentin (Neurontin) 100 mg PO TID [facility] [place] Last Admin: 04/07/18 09:46 Dose: 100 mg Hydralazine HCl (Apresoline) 25 mg PO TID [facility] [place] Last Admin: 04/07/18 09:46 Dose: 25 mg Insulin Human NPH (Novolin N) 60 unit SC HS [facility] [place] Last Admin: 04/06/18 22:00 Dose: Not Given Insulin Human Regular (Novolin R) 0 unit SC ACHS [facility] [place] Last Admin: 04/07/18 11:32 Dose: 2 unit Insulin Human Regular (Novolin R) 20 unit SC AC [facility] [place] Last Admin: 04/07/18 11:32 Dose: 20 units Metoprolol Succinate (Toprol Xl) 25 mg PO DAILY [facility] [place] Last Admin: 04/07/18 09:46 Dose: 25 mg Pantoprazole Sodium (Protonix Ec Tab) 40 mg PO DAILY [facility] [place] Last Admin: 04/07/18 09:47 Dose: 40 mg Paricalcitol (Zemplar) 2 mcg IV TTS [facility] [place] Last Admin: 04/06/18 17:19 Dose: 2 mcg Rosuvastatin Calcium (Crestor) 5 mg PO HS [facility] [place] Last Admin: 04/06/18 21:59 Dose: 5 mg Sevelamer Carbonate (Renvela) 2.4 gm PO TIDCC [facility] [place] Last Admin: 04/07/18 11:33 Dose: 2.4 gm Zolpidem Tartrate (Ambien) 5 mg PO HS [facility] [place] Last Admin: 04/06/18 21:59 Dose: 5 mg - Labs Labs: 04/07/18 06:30 04/06/18 08:00 PT 10.9 SECONDS (9.7-12.2) 04/05/18 13:40 INR 1.0 04/05/18 13:40 APTT 29 SECONDS (21-34) 04/05/18 13:40 - Constitutional Appears: Well, Non-toxic, No Acute Distress - Head Exam Head Exam: ATRAUMATIC, NORMAL INSPECTION - Eye Exam Eye Exam: EOMI, Normal appearance, PERRL Pupil Exam: NORMAL ACCOMODATION - ENT Exam ENT Exam: Mucous Membranes Moist - Neck Exam Neck Exam: Full ROM - Respiratory Exam Respiratory Exam: Clear to Ausculation Bilateral, NORMAL BREATHING PATTERN - Cardiovascular Exam Cardiovascular Exam: REGULAR RHYTHM, +S1, +S2 - GI/Abdominal Exam GI & Abdominal Exam: Soft, Normal Bowel Sounds - Rectal Exam Rectal Exam: Deferred - Extremities Exam Additional comments: no edema of legs - Neurological Exam Neurological Exam: Alert, Awake, CN II-XII Intact, Oriented x3 - Psychiatric Exam Psychiatric exam: Normal Affect, Normal Mood - Skin Skin Exam: Normal Color, Warm Assessment and Plan - Assessment and Plan (Free Text) Assessment: 52 yo GF with pmh/o htn,dm, chf, cad, s/p cabg, anemia, sec. hpth was admitted with malfunctioning perma cath, s/p egd and colonoscopy for anemia 1.ESRD 2.Anemia 3.HTN 4.DM s/p transfusion of 1 unit PRBC h/h is stable c/w current meds stable from renal stand point
[2018-04-07 17:00] VITALS: BP 128/67; PULSE 99; TEMP 98.1
--- NOTE | 2018-04-07 18:20 | CP.PCM.PN ---
Subjective - Date & Time of Evaluation Date of Evaluation: 04/07/18 Time of Evaluation: 16:00 - Subjective Subjective: DOCUMENT [employer]OL [employer]OCIATE NOTES patient admitted with hyperglycemia and bleeding from HD site and needs HD on admission patient seen today, states feels better , denies nay chest pain, sob, abdominal pain, N/V/ vss and labs reviewed- stable a febrile BS - stable with current regimen D/w Dr. Haddad cleared for discharge home today and f/u with Dr. Haddad office in 1 week and continue HD as scheduled Discharge plan discussed with patient who understands and agrees with plan all RX given to patient Objective - Vital Signs/Intake and Output Vital Signs (last 24 hours): Temp Pulse Resp BP Pulse Ox 98.1 F 99 H 20 128/67 95 04/07/18 15:05 04/07/18 15:05 04/07/18 15:05 04/07/18 15:05 04/07/18 15:05 Intake and Output: 04/07/18 04/07/18 06:59 18:59 Intake Total 745 Balance 745 - Medications Medications: Current Medications Albuterol/Ipratropium (Duoneb 3 Mg/0.5 Mg (3 Ml) Ud) 3 ml INH RQ6 [facility] Last Admin: 04/07/18 13:39 Dose: 3 ml Amlodipine Besylate (Norvasc) 10 mg PO DAILY [facility] Last Admin: 04/07/18 09:46 Dose: 10 mg Aspirin (Ecotrin) 81 mg PO DAILY [facility] Last Admin: 04/04/18 09:50 Dose: Not Given Cyclobenzaprine HCl (Flexeril) 10 mg PO TID PRN PRN Reason: Pain, moderate (4-7) Epoetin Tito (Procrit) 10,000 unit IV TTS [facility] Last Admin: 04/06/18 17:18 Dose: 10,000 unit Ferrous Sulfate (Feosol) 325 mg PO TID [facility] Last Admin: 04/07/18 17:50 Dose: 325 mg Gabapentin (Neurontin) 100 mg PO TID [facility] Last Admin: 04/07/18 17:51 Dose: 100 mg Hydralazine HCl (Apresoline) 25 mg PO TID [facility] Last Admin: 04/07/18 17:50 Dose: 25 mg Insulin Human NPH (Novolin N) 60 unit SC HS [facility] Last Admin: 04/06/18 22:00 Dose: Not Given Insulin Human Regular (Novolin R) 0 unit SC ACHS [facility] Last Admin: 04/07/18 17:52 Dose: Not Given Insulin Human Regular (Novolin R) 20 unit SC AC [facility] Last Admin: 04/07/18 17:52 Dose: 20 units Metoprolol Succinate (Toprol Xl) 25 mg PO DAILY [facility] Last Admin: 04/07/18 09:46 Dose: 25 mg Pantoprazole Sodium (Protonix Ec Tab) 40 mg PO DAILY [facility] Last Admin: 04/07/18 09:47 Dose: 40 mg Paricalcitol (Zemplar) 2 mcg IV TTS [facility] Last Admin: 04/06/18 17:19 Dose: 2 mcg Rosuvastatin Calcium (Crestor) 5 mg PO HS [facility] Last Admin: 04/06/18 21:59 Dose: 5 mg Sevelamer Carbonate (Renvela) 2.4 gm PO TIDCC [facility] Last Admin: 04/07/18 17:53 Dose: 2.4 gm Zolpidem Tartrate (Ambien) 5 mg PO HS [facility] Last Admin: 04/06/18 21:59 Dose: 5 mg - Labs Labs: 04/07/18 06:30 04/06/18 08:00 PT 10.9 SECONDS (9.7-12.2) 04/05/18 13:40 INR 1.0 04/05/18 13:40 APTT 29 SECONDS (21-34) 04/05/18 13:40
--- NOTE | 2018-04-08 08:30 | PN ---
DATE: 04/07/2018 SUBJECTIVE: This is a 52-year-old female seen and examined in rounds, appeared to be awake, alert, oriented, post blood transfusion. The patient also with post upper and lower endoscopy with biopsy. Official report is still pending. Today's lab showed hemoglobin of 9.3, hematocrit 27.8 with low indices and blood glucose level 301 with increased BUN and creatinine before due to the patient's known history of renal failure. PHYSICAL EXAMINATION: GENERAL: A 52-year-old female, afebrile with pulse of 96, respiratory rate 20 to 22, blood pressure of 150/94. HEENT: Showed pale dry oral mucoid membrane. Nonicteric sclerae. LUNGS: Few scattered crepitation. Decreased air entry at bases. HEART: Positive S1 and S2. ABDOMEN: Soft with mild generalized tenderness. No mass or organomegaly. No rebound tenderness or guarding. EXTREMITIES: Without significant edema, clubbing, or cyanosis. NEUROLOGIC: No reported new neurological deficits, sensory, or motor. IMPRESSION: 1. Gastrointestinal bleeding, subsided. 2. Anemia, most likely secondary to above and due to chronic disease. 3. Known history of but not limited to poorly controlled diabetes mellitus, osteoarthritis, hyperlipidemia. 4. Known history of hypertension, coronary artery disease with status post coronary artery bypass graft. 5. Chronic obstructive pulmonary disease. 6. Renal failure. SUGGESTIONS: 1. Continue current management. 2. Antireflux measure. 3. Follow up hemoglobin and hematocrit. 4. Further recommendation to follow. Ryne Sosa MD
== END 2018-04-07 21:15 | disposition home or self-care (01) | DRG 420 ==
LOC: C.ER 12:16 → C.9E 13:58 → C.3T 16:51 → OBSVTOIN 04-01 14:42
PROVIDERS: ADMIT Internal Medicine; ATTEND Internal Medicine
PROC: 5A1D70Z Performance of Urinary Filtration, Intermittent, Less than 6 Hours Per Day (ICD-10-PCS; principal; 2018-04-01)
PROC: 5A1D70Z Performance of Urinary Filtration, Intermittent, Less than 6 Hours Per Day (ICD-10-PCS; 2018-04-04)
PROC: 0DB68ZX Excision of Stomach, Via Natural or Artificial Opening Endoscopic, Diagnostic (ICD-10-PCS; 2018-04-06)
PROC: 0DBM8ZX Excision of Descending Colon, Via Natural or Artificial Opening Endoscopic, Diagnostic (ICD-10-PCS; 2018-04-06)
PROC: 30233N1 Transfusion of Nonautologous Red Blood Cells into Peripheral Vein, Percutaneous Approach (ICD-10-PCS; 2018-04-06)
PROC: 5A1D70Z Performance of Urinary Filtration, Intermittent, Less than 6 Hours Per Day (ICD-10-PCS; 2018-04-06)
DX: E11.65 Type 2 diabetes mellitus with hyperglycemia (principal); I13.2 Hypertensive heart and chronic kidney disease with heart failure and with stage 5 chronic kidney disease, or end stage renal disease; N25.81 Secondary hyperparathyroidism of renal origin; N18.6 End stage renal disease; T82.838A Hemorrhage due to vascular prosthetic devices, implants and grafts, initial encounter; E86.0 Dehydration; K62.5 Hemorrhage of anus and rectum; D50.0 Iron deficiency anemia secondary to blood loss (chronic); I50.9 Heart failure, unspecified; J44.9 Chronic obstructive pulmonary disease, unspecified; K64.8 Other hemorrhoids; D63.8 Anemia in other chronic diseases classified elsewhere; K21.0 Gastro-esophageal reflux disease with esophagitis; K58.9 Irritable bowel syndrome, unspecified; K29.50 Unspecified chronic gastritis without bleeding; E11.22 Type 2 diabetes mellitus with diabetic chronic kidney disease; I25.10 Atherosclerotic heart disease of native coronary artery without angina pectoris; E11.319 Type 2 diabetes mellitus with unspecified diabetic retinopathy without macular edema; E11.42 Type 2 diabetes mellitus with diabetic polyneuropathy; K44.9 Diaphragmatic hernia without obstruction or gangrene; K64.4 Residual hemorrhoidal skin tags; E78.5 Hyperlipidemia, unspecified; Z91.14 Patient's other noncompliance with medication regimen; E78.00 Pure hypercholesterolemia, unspecified; H54.8 Legal blindness, as defined in USA; Z95.1 Presence of aortocoronary bypass graft; Z99.2 Dependence on renal dialysis; Z79.4 Long term (current) use of insulin; Z82.49 Family history of ischemic heart disease and other diseases of the circulatory system

== ENCOUNTER 2018-06-07 13:13 | Inpatient (IN) | payer MEDICAID, OTHER ==
[2018-06-07] MEDS ORDERED: Morphine 4 MG/ML VIAL ONE (15:19)
[2018-06-07 15:21] LABS: BASO # 0.2 K/uL (0.0-0.2); BASO % 1.2 % (0.0-2.0); EOS # 0.3 K/uL (0.0-0.7); EOS % 2.6 % (0.0-4.0); LYMPH # 2.1 K/uL (1.0-4.3); LYMPH % 16.1 % (20.0-40.0); MEAN CORPUSCULAR HEMOGLOBIN 25.2 pg (27.0-31.0); MEAN CORPUSCULAR HGB CONC 31.8 g/dL (33.0-37.0); MEAN PLATELET VOLUME 7.3 fL (7.2-11.7); MONO # 1.2 K/uL (0.0-0.8); MONO % 9.1 % (0.0-10.0); NEUT # 9.3 K/uL (1.8-7.0); NRBC % 0.2 % (0.0-2.0); RBC 4.55 Mil/uL (3.80-5.20); RED CELL DISTRIBUTION WIDTH 19.7 % (11.5-14.5); WHITE BLOOD COUNT 13.2 K/uL (4.8-10.8)
[2018-06-07 15:23] LABS: HEMOGLOBIN 11.5 g/dL (11.0-16.0); MEAN CELL VOLUME 79.3 fL (81.0-99.0)
[2018-06-07 15:30] LABS: INR 1.1; PROTHROMBIN TIME 12.1 SECONDS (9.7-12.2)
[2018-06-07 15:44] LABS: ALB/GLOB RATIO 0.9 (1.0-2.1); ALBUMIN 3.3 g/dL (3.5-5.0)
[2018-06-07 15:57] LABS: CK-MB 5.32 ng/mL (0.0-3.38); TROPONIN I 0.02 ng/mL (0.00-0.120)
--- NOTE | 2018-06-07 15:59 | RAD ---
HISTORY: PAIN COMPARISON: Chest x-ray performed 03/31/18 TECHNIQUE: Chest, one view. FINDINGS: Right IJ approach dialysis catheter with distal tips at the cavoatrial junction. LUNGS: Mild central vascular prominence. No focal consolidation. Please note that chest x-ray has limited sensitivity for the detection of pulmonary masses. PLEURA: No significant pleural effusion identified. No definite pneumothorax . CARDIOVASCULAR: Median sternotomy wires. Cardiomegaly. OSSEOUS STRUCTURES: Degenerative changes. VISUALIZED UPPER ABDOMEN: Unremarkable. OTHER FINDINGS: None. IMPRESSION: Mild central vascular prominence. Cardiomegaly.
--- NOTE | 2018-06-07 16:22 | C.PDOC ---
History Of Present Illness 53 years old female presents to ED for complaints of left sided back pain and abdominal pain associated with nausea that began today at 6AM. Patient also reports some constipation. She denies vomiting, diarrhea, dysuria/hematuria, f ever, chest pain, SOB. PMHx of HTN, DM II, CAD, COPD, CKD, anemia Chief Complaint (Nursing): Chest Pain History Per: Patient History/Exam Limitations: no limitations Onset/Duration Of Symptoms: Hrs Current Symptoms Are (Timing): Still Present Severity: Moderate Quality: "Pain" Associated Symptoms: Nausea Modifying Factors: None Exacerbating Factors: Movement Alleviating Factors: None Recent travel outside of the [place]: No Past Medical History Reviewed: Historical Data, Nursing Documentation, Vital Signs Vital Signs: Last Vital Signs Temp Pulse 98 H 06/07/18 16:11 Resp 18 06/07/18 16:11 BP 158/83 H 06/07/18 16:11 Pulse Ox 99 06/07/18 16:11 - Medical History PMH: Anemia, Arthritis (KNEE; BACK), CAD, COPD, Diabetes, HTN, Hypercholesterolemia, Chronic Kidney Disease (esrd) Surgical History: CABG (09/19) - [facility] (04/01/18) ASSIST WITH CARDIAC OUTPUT USING BALLOON PUMP, INTERMITTENT (08/31/15) BYPASS LEFT BRACHIAL ARTERY TO UPPER ARM VEIN, OPEN APPROACH (02/17/18) DILATION OF R FEM ART WITH DRUG-ELUT INTRA, PERC APPROACH (01/19/18) DILATION OF RIGHT ANTERIOR TIBIAL ARTERY, PERC APPROACH (01/19/18) DILATION OF RIGHT FEMORAL ARTERY, PERCUTANEOUS APPROACH (01/19/18) DILATION OF RIGHT PERONEAL ARTERY, PERCUTANEOUS APPROACH (01/19/18) EXCISION OF DESCENDING COLON, ENDO, DIAGN (04/01/18) EXCISION OF DUODENUM, ENDO, DIAGN (06/07/16) EXCISION OF STOMACH, ENDO, DIAGN (04/01/18) FLUOROSCOPY OF LEFT HEART USING LOW OSMOLAR CONTRAST (08/31/15) FLUOROSCOPY OF MULT COR ART USING L OSM CONTRAST (08/31/15) INSERT INFUSION DEV IN R INT JUGULAR VEIN, PERC (02/17/18) MEASURE OF CARDIAC SAMPL & PRESSURE, L HEART, PERC APPROACH (08/31/15) TRANSFUSE NONAUT RED BLOOD CELLS IN PERIPH VEIN, PERC (04/01/18) TRANSFUSE NONAUT WHOLE BLOOD IN PERIPH VEIN, PERC (03/11/16) Family History: States: CAD (mother) - Social History Hx Tobacco Use: No Hx Alcohol Use: No Hx Substance Use: No - Immunization History Hx Tetanus Toxoid Vaccination: No Hx Influenza Vaccination: Yes Hx Pneumococcal Vaccination: No Review Of Systems Constitutional: Negative for: Fever, Chills Cardiovascular: Negative for: Chest Pain, Palpitations Respiratory: Negative for: Cough, Shortness of Breath Gastrointestinal: Positive for: Nausea, Abdominal Pain, Constipation. Negative for: Vomiting, Diarrhea Genitourinary: Negative for: Dysuria, Hematuria, Vaginal Discharge Musculoskeletal: Positive for: Back Pain Skin: Negative for: Rash Neurological: Negative for: Weakness, Numbness Physical Exam - Physical Exam Appears: Well, Non-toxic, In Acute Distress (in moderate pain. Moaning in pain) Skin: Normal Color, Warm, Dry, No Rash Head: Normacephalic Eye(s): bilateral: Normal Inspection Oral Mucosa: Moist Neck: Supple Chest: Other (Portacath right upper chest ) Cardiovascular: Rhythm Regular Respiratory: Normal Breath Sounds, No Rales, No Rhonchi, No Wheezing Gastrointestinal/Abdominal: Bowel Sounds, Soft, Tenderness (Diffuse TTP, L>R. (+) TTP at left periumbilical/LUQ areas ), No Guarding, No Rebound Back: CVA Tenderness (left), Other (Left lower back tenderness ) Extremity: Normal ROM Extremity: Bilateral: Atraumatic, Normal Color And Temperature, Normal ROM Pulses: Left Radial: Normal, Right Radial: Normal Neurological/Psych: Oriented x3 Gait: Steady ED Course And Treatment - Laboratory Results Result Diagrams: 06/07/18 15:16 06/07/18 15:16 O2 Sat by Pulse Oximetry: 99 (RA) Pulse Ox Interpretation: Normal - Other Rad CXR X-Ray: Viewed By Me, Read By Radiologist Interpretation: HISTORY: PAIN. COMPARISON: Chest x-ray performed 03/31/18. TECHNIQUE: Chest, one view. FINDINGS: Right IJ approach dialysis catheter with distal tips at the cavoatrial junction. LUNGS: Mild central vascular prominence. No focal consolidation. Please note that chest x-ray has limited sensitivity for the detection of pulmonary masses. PLEURA: No significant pleural effusion identified. No definite pneumothorax . CARDIOVASCULAR: Median sternotomy wires. Cardiomegaly. OSSEOUS STRUCTURES: Degenerative changes. VISUALIZED UPPER ABDOMEN: Unremarkable. OTHER FINDINGS: None. IMPRESSION: Mild central vascular prominence. Cardiomegaly. Progress Note: Blood work, UA, CT scan abd/pelvis ordered and reviewed. Patient given IV morphine for pain x 2. Disposition - Disposition Disposition Time: 19:00 Condition: STABLE Forms: [facility] (Ugandan) - Clinical Impression Clinical Impression: Left flank pain, Abdominal pain - Scribe Statement The provider has reviewed the documentation as recorded by the Scribmarc Bae All medical record entries made by the Evanibe were at my direction and personally dictated by me. I have reviewed the chart and agree that the record accurately reflects my personal performance of the history, physical exam, medical decision making, and the department course for this patient. I have also personally directed, reviewed, and agree with the discharge instructions and disposition. Physician Patient Turnover Patient Signed Over To: Derek Belle Handoff Comments: pending CT scan, reassessment
[2018-06-07 17:07] LABS: HCG,QUALITATIVE URINE NEGATIVE (NEGATIVE); SQUAMOUS EPITHIAL 1 /hpf (0-5); URINE BILIRUBIN NEGATIVE (NEGATIVE); URINE BLOOD NEGATIVE (NEGATIVE); URINE CLARITY Clear (Clear); URINE COLOR Yellow (YELLOW); URINE GLUCOSE (UA) 3+ mg/dL (Normal); URINE LEUKOCYTE ESTERASE NEG Leu/uL (Negative); URINE PROTEIN 3+ mg/dL (NEGATIVE); URINE UROBILINOGEN NORMAL mg/dL (0.2-1.0)
--- NOTE | 2018-06-08 07:43 | CP.PCM.CON ---
<Kike Trinh - Last Filed: 06/08/18 17:47> History of Present Illness - History of Present Illness History of Present Illness: General Surgery Consult Note for Dr. Pope Consult: Intractable abdominal pain CC: Left flank and abdominal pain HPI: 53 year old female, past medical history of ESRD (Dialysis TThS), HTN, presents with left flank pain that started a few days ago. It continued to worsen to the point where the pain became unbearable. Patient was at a [facility]plant [facility] to pu t her name down for a kidney transplant when she could no longer tolerate the pain. She was brought to [facility] by a family member. She continues to have pain despite being given pain medication. She has never had such significant pain in the area before. Pain radiates anteriorly. Nothing seems to alleviate the symptoms. Palpating the area illicits more pain. Admits to nausea and few episodes of vomiting in the morning. Denies f/c, diarrhea, SOB, CP, or urinary symptoms. PMH: See above PSH: Hysterectomy ('16), Open Heart surgery, Permacath FH: Noncontributory SH: Denies tobacco, alcohol, drugs ALL: NKDA Meds: See MAR Review of Systems - Constitutional Constitutional: absent: Chills, Fever - EENT Eyes: Blurred Vision. absent: Change in Vision Nose/Mouth/Throat: absent: Nasal Congestion, Nasal Discharge - Cardiovascular Cardiovascular: absent: Chest Pain, Dyspnea - Respiratory Respiratory: absent: Cough, Dyspnea - Gastrointestinal Gastrointestinal: Abdominal Pain, Nausea, Vomiting - Genitourinary Genitourinary: absent: Difficulty Urinating, Dysuria - Integumentary Integumentary: absent: Bleeding Lesions, Changing Lesions - Neurological Neurological: absent: Confusion, Dizziness - Psychiatric Psychiatric: absent: Anxiety, Depression Past Patient History - Infectious Disease Hx of Infectious Diseases: None - Past Medical History & Family History Past Medical History?: Yes - Past Social History Smoking Status: Never Smoked - CARDIAC Hx Cardiac Disorders: Yes Hx Hypercholesterolemia: Yes Hx Hypertension: Yes - PULMONARY Hx Respiratory Disorders: Yes Hx Chronic Obstructive Pulmonary Disease (COPD): Yes - NEUROLOGICAL Hx Neurological Disorder: Yes Hx Syncope: Yes - HEENT Hx HEENT Problems: No - RENAL Hx Chronic Kidney Disease: Yes (esrd) Date of Last Dialysis Treatment: 06/05/18 - ENDOCRINE/METABOLIC Hx Endocrine Disorders: Yes Hx Diabetes Mellitus Type 1: Yes - HEMATOLOGICAL/ONCOLOGICAL Hx Blood Disorders: Yes Hx Anemia: Yes - INTEGUMENTARY Hx Dermatological Problems: No - MUSCULOSKELETAL/RHEUMATOLOGICAL Hx Arthritis: Yes (KNEE; BACK) Hx Falls: No - GASTROINTESTINAL Hx Gastrointestinal Disorders: Yes Hx Gastroesophageal Reflux: Yes - GENITOURINARY/GYNECOLOGICAL Hx Genitourinary Disorders: No - PSYCHIATRIC Hx Psychophysiologic Disorder: No Hx Substance Use: No - SURGICAL HISTORY Hx Surgeries: Yes Hx Coronary Artery Bypass Graft: Yes (09/19) Hx Hysterectomy: Yes - ANESTHESIA Hx Anesthesia: Yes Hx Anesthesia Reactions: No Hx Malignant Hyperthermia: No Has any member of the family had a problem w/ anesthesia?: No Meds Allergies/Adverse Reactions: Allergies Allergy/AdvReac Type Severity Reaction Status Date / Time No Known Allergies Allergy Verified 06/07/18 14:41 - Medications Medications: Current Medications Amlodipine Besylate (Norvasc) 10 mg PO DAILY [facility] Aspirin (Ecotrin) 81 mg PO DAILY [facility] Ferrous Sulfate (Feosol) 325 mg PO TID [facility] Home Med (Insulin Glargine,Hum.Rec.Anlog [Lantus Solostar]) 25 unit SQ HS [facility] Hydralazine HCl (Apresoline) 25 mg PO TID [facility] Hydromorphone HCl (Dilaudid) 2 mg IVP Q8H PRN PRN Reason: Pain, severe (8-10) Last Admin: 06/08/18 02:31 Dose: 2 mg Metronidazole 250 mg/ (Miscellaneous) 50 mls @ 100 mls/hr IVPB Q12H [facility]; Protocol Moxifloxacin HCl (Avelox Iv 400mg/250ml Ns) 400 mg in 250 mls @ 167 mls/hr IVPB Q24H [facility]; Protocol Insulin Aspart (Novolog) 5 unit SC AC [facility] Metoprolol Succinate (Toprol Xl) 25 mg PO DAILY [facility] Pantoprazole Sodium (Protonix Ec Tab) 40 mg PO DAILY [facility] Sevelamer Carbonate (Renvela) 2.4 gm PO TIDCC [facility] Physical Exam - Constitutional Appears: Non-toxic, No Acute Distress - Head Exam Head Exam: ATRAUMATIC, NORMAL INSPECTION, NORMOCEPHALIC - Eye Exam Eye Exam: EOMI - ENT Exam ENT Exam: Mucous Membranes Dry - Respiratory Exam Respiratory Exam: NORMAL BREATHING PATTERN. absent: Respiratory Distress - Cardiovascular Exam Cardiovascular Exam: REGULAR RHYTHM. absent: Tachycardia - GI/Abdominal Exam GI & Abdominal Exam: Soft, Tenderness. absent: Distended, Guarding, Rebound - Back Exam Back exam: CVA tenderness (L). absent: CVA tenderness (R) - Neurological Exam Neurological exam: Alert, Oriented x3 - Psychiatric Exam Psychiatric exam: Normal Affect, Normal Mood - Skin Skin Exam: Dry, Intact, Normal Color, Warm Results - Vital Signs Recent Vital Signs: Last Vital Signs Temp 98 F 06/08/18 04:23 Pulse 86 06/08/18 04:23 Resp 20 06/08/18 04:23 BP 169/80 H 06/08/18 05:00 Pulse Ox 95 06/08/18 04:23 - Labs Result Diagrams: 06/07/18 15:16 06/07/18 15:16 Labs: Laboratory Results - last 24 hr 06/07/18 06/07/18 06/07/18 15:16 15:16 15:16 WBC 13.2 H RBC 4.55 Hgb 11.5 D Hct 36.1 MCV 79.3 L D MCH 25.2 L MCHC 31.8 L RDW 19.7 H Plt Count 433 H D MPV 7.3 Neut % (Auto) 71.0 Lymph % (Auto) 16.1 L [place] % (Auto) 9.1 Eos % (Auto) 2.6 Baso % (Auto) 1.2 Neut # (Auto) 9.3 H Lymph # (Auto) 2.1 [place] # (Auto) 1.2 H Eos # (Auto) 0.3 Baso # (Auto) 0.2 PT 12.1 INR 1.1 APTT 33 Sodium 135 Potassium 5.2 Chloride 105 Carbon Dioxide 24 Anion Gap 11 BUN 20 H Creatinine 3.2 H Est GFR ( Amer) 18 Est GFR (Non-Af Amer) 15 POC Glucose (mg/dL) Random Glucose 179 H D Calcium 9.0 Total Bilirubin 0.6 AST 22 ALT 16 Alkaline Phosphatase 104 Total Creatine Kinase 130 CK-MB (Mass) 5.32 H Troponin I 0.0200 Total Protein 6.8 Albumin 3.3 L Globulin 3.5 Albumin/Globulin Ratio 0.9 L Lipase 180 Urine Color Urine Clarity Urine pH Ur Specific [place] Urine Protein Urine Glucose (UA) Urine Ketones Urine Blood Urine Nitrate Urine Bilirubin Urine Urobilinogen Ur Leukocyte Esterase Urine WBC (Auto) Urine RBC (Auto) Ur Squamous Epith Cells Hyaline Casts Urine HCG, Qual 06/07/18 06/08/18 16:52 06:38 WBC RBC Hgb Hct MCV MCH MCHC RDW Plt Count MPV Neut % (Auto) Lymph % (Auto) [place] % (Auto) Eos % (Auto) Baso % (Auto) Neut # (Auto) Lymph # (Auto) [place] # (Auto) Eos # (Auto) Baso # (Auto) PT INR APTT Sodium Potassium Chloride Carbon Dioxide Anion Gap BUN Creatinine Est GFR ( Amer) Est GFR (Non-Af Amer) POC Glucose (mg/dL) 151 H Random Glucose Calcium Total Bilirubin AST ALT Alkaline Phosphatase Total Creatine Kinase CK-MB (Mass) Troponin I Total Protein Albumin Globulin Albumin/Globulin Ratio Lipase Urine Color Yellow Urine Clarity Clear Urine pH 8.0 Ur Specific [place] 1.023 Urine Protein 3+ H Urine Glucose (UA) 3+ H Urine Ketones Trace Urine Blood Negative Urine Nitrate Negative Urine Bilirubin Negative Urine Urobilinogen Normal Ur Leukocyte Esterase Neg Urine WBC (Auto) 3 Urine RBC (Auto) 3 Ur Squamous Epith Cells 1 Hyaline Casts 6-10 H Urine HCG, Qual Negative Assessment & Plan - Assessment and Plan (Free Text) Assessment: 53F w/ new onset intractable left sided flank and abdominal pain Plan: F/u official CT results Continue pain management Continue antiemetics PRN F/u UA Recommend renal US Further recommendations per Dr. Niko Trinh PGY1 <Juan J Pope - Last Filed: 06/22/18 08:22> Results - Vital Signs Recent Vital Signs: Last Vital Signs Temp 98.2 F 06/12/18 08:41 Pulse 81 06/12/18 08:41 Resp 20 06/12/18 08:41 BP 136/73 06/12/18 08:41 Pulse Ox 96 06/12/18 08:41 - Labs Result Diagrams: 06/09/18 11:53 06/09/18 11:53 Attending/Attestation - Attestation I have personally seen and examined this patient.: Yes I have fully participated in the care of the patient.: Yes I have reviewed all pertinent clinical information: Yes Notes (Text): Pt was seen and examined at bedside Agree with above note and assessment Pt with LLQ pain and nausea Abdomen : Soft, ND, tender in LLQ Labs and Radiology reviewed Ass: Abdominal pain possible related to kidney stones Plan: Conservative management for now IV analgesics prn Urology consult Liquid diet c.w current mx Plan d.w pt in detail Risk and benefit explained in detail.
[2018-06-08] MEDS: Sevelamer Carb 2.4 gm/Packet PO SCH ×3 (08:15→17:22)
[2018-06-08] MEDS: (Novolog) Insulin Aspart, Recombinant 100 u/ml 10 ml vial SC SCH ×3 (08:35→17:22)
[2018-06-08] MEDS: metroNIDAZOLE IV 500 mg/100 ml 250 MG in Premixed IV 1 EA IVPB SCH ×2 (09:00→19:25)
--- NOTE | 2018-06-08 09:21 | CP.PCM.CON ---
<VladislavelviraismaelElton - Last Filed: 06/08/18 13:21> History of Present Illness - History of Present Illness History of Present Illness: GI Fellow PGY4, Consult note. Michael Orozco is a pleasant 53F presenting with left sided abdominal pain. She has hx of DM, CAD s/p CABG, ESRD, HTN. The pain has been intermittent over the last month but worsening for the last 6 days. She states the pain is sharp, severe in the LLQ of the abdomen and is radiating the her ribs. Patient states nothing makes the pain better or worse despite using tylenol. She admits intermittent constipation and poor apatite. She denies vomiting, dysphagia, diarrhea, blood in stool, blood in urine. She had EGD and colonoscopy 04/23 which showed poor prep and esophagitis, HP negative. On admission, WBC was slightly elevated at 13 but otherwise labs were unremarkable given history. CT scan showed pleural effusions but no acute findings of the abdomen. She was placed on flagyl, moxifloxacin, ppi. PMHx - as above. PSHx - CABG, hysterectomy. FmHX - no GI related cancers. SocHx - Denies alcohol, tobacco. She lives with parent at home. 12pt ROS completed and negative except for above. Past Patient History - Infectious Disease Hx of Infectious Diseases: None - Past Medical History & Family History Past Medical History?: Yes - Past Social History Smoking Status: Never Smoked - CARDIAC Hx Cardiac Disorders: Yes Hx Hypercholesterolemia: Yes Hx Hypertension: Yes - PULMONARY Hx Respiratory Disorders: Yes Hx Chronic Obstructive Pulmonary Disease (COPD): Yes - NEUROLOGICAL Hx Neurological Disorder: Yes Hx Syncope: Yes - HEENT Hx HEENT Problems: No - RENAL Hx Chronic Kidney Disease: Yes (esrd) Date of Last Dialysis Treatment: 06/05/18 - ENDOCRINE/METABOLIC Hx Endocrine Disorders: Yes Hx Diabetes Mellitus Type 1: Yes - HEMATOLOGICAL/ONCOLOGICAL Hx Blood Disorders: Yes Hx Anemia: Yes - INTEGUMENTARY Hx Dermatological Problems: No - MUSCULOSKELETAL/RHEUMATOLOGICAL Hx Arthritis: Yes (KNEE; BACK) Hx Falls: No - GASTROINTESTINAL Hx Gastrointestinal Disorders: Yes Hx Gastroesophageal Reflux: Yes - GENITOURINARY/GYNECOLOGICAL Hx Genitourinary Disorders: No - PSYCHIATRIC Hx Psychophysiologic Disorder: No Hx Substance Use: No - SURGICAL HISTORY Hx Surgeries: Yes Hx Coronary Artery Bypass Graft: Yes (09/19) Hx Hysterectomy: Yes - ANESTHESIA Hx Anesthesia: Yes Hx Anesthesia Reactions: No Hx Malignant Hyperthermia: No Has any member of the family had a problem w/ anesthesia?: No Meds Allergies/Adverse Reactions: Allergies Allergy/AdvReac Type Severity Reaction Status Date / Time No Known Allergies Allergy Verified 06/07/18 14:41 - Medications Medications: Current Medications Amlodipine Besylate (Norvasc) 10 mg PO DAILY [facility] Aspirin (Ecotrin) 81 mg PO DAILY [facility] Ferrous Sulfate (Feosol) 325 mg PO TID [facility] Home Med (Insulin Glargine,Hum.Rec.Anlog [Lantus Solostar]) 25 unit SQ HS [facility] Hydralazine HCl (Apresoline) 25 mg PO TID [facility] Hydromorphone HCl (Dilaudid) 2 mg IVP Q8H PRN PRN Reason: Pain, severe (8-10) Last Admin: 06/08/18 02:31 Dose: 2 mg Metronidazole 250 mg/ (Miscellaneous) 50 mls @ 100 mls/hr IVPB Q12H [facility]; Protocol Moxifloxacin HCl (Avelox Iv 400mg/250ml Ns) 400 mg in 250 mls @ 167 mls/hr IVPB Q24H [facility]; Protocol Insulin Aspart (Novolog) 5 unit SC AC [facility] Metoprolol Succinate (Toprol Xl) 25 mg PO DAILY [facility] Pantoprazole Sodium (Protonix Ec Tab) 40 mg PO DAILY [facility] Sevelamer Carbonate (Renvela) 2.4 gm PO TIDCC [facility] Physical Exam - Constitutional Appears: Non-toxic, Agitated - Head Exam Head Exam: ATRAUMATIC, NORMAL INSPECTION - Eye Exam Eye Exam: EOMI, Normal appearance - ENT Exam ENT Exam: Mucous Membranes Moist, Normal Exam - Respiratory Exam Respiratory Exam: Clear to Auscultation Bilateral, NORMAL BREATHING PATTERN Additional comments: Crackles - Cardiovascular Exam Cardiovascular Exam: REGULAR RHYTHM, +S1, +S2 Additional comments: Sternotomy scar - GI/Abdominal Exam GI & Abdominal Exam: Normal Bowel Sounds, Soft, Tenderness. absent: Organomegaly - Extremities Exam Extremities exam: Negative for: normal inspection, pedal edema Additional comments: bruises - Back Exam Back exam: CVA tenderness (L) - Neurological Exam Neurological exam: Alert, CN II-XII Intact, Oriented x3 - Psychiatric Exam Psychiatric exam: Normal Affect, Normal Mood - Skin Skin Exam: Dry, Normal Color, Warm Results - Vital Signs Recent Vital Signs: Last Vital Signs Temp 97.6 F 06/08/18 08:33 Pulse 95 H 06/08/18 08:33 Resp 20 06/08/18 08:33 BP 167/93 H 06/08/18 08:33 Pulse Ox 98 06/08/18 08:33 - Labs Result Diagrams: 06/07/18 15:16 06/07/18 15:16 Labs: Laboratory Results - last 24 hr 06/07/18 06/07/18 06/07/18 15:16 15:16 15:16 WBC 13.2 H RBC 4.55 Hgb 11.5 D Hct 36.1 MCV 79.3 L D MCH 25.2 L MCHC 31.8 L RDW 19.7 H Plt Count 433 H D MPV 7.3 Neut % (Auto) 71.0 Lymph % (Auto) 16.1 L [place] % (Auto) 9.1 Eos % (Auto) 2.6 Baso % (Auto) 1.2 Neut # (Auto) 9.3 H Lymph # (Auto) 2.1 [place] # (Auto) 1.2 H Eos # (Auto) 0.3 Baso # (Auto) 0.2 PT 12.1 INR 1.1 APTT 33 Sodium 135 Potassium 5.2 Chloride 105 Carbon Dioxide 24 Anion Gap 11 BUN 20 H Creatinine 3.2 H Est GFR ( Amer) 18 Est GFR (Non-Af Amer) 15 POC Glucose (mg/dL) Random Glucose 179 H D Calcium 9.0 Total Bilirubin 0.6 AST 22 ALT 16 Alkaline Phosphatase 104 Total Creatine Kinase 130 CK-MB (Mass) 5.32 H Troponin I 0.0200 Total Protein 6.8 Albumin 3.3 L Globulin 3.5 Albumin/Globulin Ratio 0.9 L Lipase 180 Urine Color Urine Clarity Urine pH Ur Specific [place] Urine Protein Urine Glucose (UA) Urine Ketones Urine Blood Urine Nitrate Urine Bilirubin Urine Urobilinogen Ur Leukocyte Esterase Urine WBC (Auto) Urine RBC (Auto) Ur Squamous Epith Cells Hyaline Casts Urine HCG, Qual 06/07/18 06/08/18 16:52 06:38 WBC RBC Hgb Hct MCV MCH MCHC RDW Plt Count MPV Neut % (Auto) Lymph % (Auto) [place] % (Auto) Eos % (Auto) Baso % (Auto) Neut # (Auto) Lymph # (Auto) [place] # (Auto) Eos # (Auto) Baso # (Auto) PT INR APTT Sodium Potassium Chloride Carbon Dioxide Anion Gap BUN Creatinine Est GFR ( Amer) Est GFR (Non-Af Amer) POC Glucose (mg/dL) 151 H Random Glucose Calcium Total Bilirubin AST ALT Alkaline Phosphatase Total Creatine Kinase CK-MB (Mass) Troponin I Total Protein Albumin Globulin Albumin/Globulin Ratio Lipase Urine Color Yellow Urine Clarity Clear Urine pH 8.0 Ur Specific [place] 1.023 Urine Protein 3+ H Urine Glucose (UA) 3+ H Urine Ketones Trace Urine Blood Negative Urine Nitrate Negative Urine Bilirubin Negative Urine Urobilinogen Normal Ur Leukocyte Esterase Neg Urine WBC (Auto) 3 Urine RBC (Auto) 3 Ur Squamous Epith Cells 1 Hyaline Casts 6-10 H Urine HCG, Qual Negative Assessment & Plan - Assessment and Plan (Free Text) Assessment: #Abdominal pain, LLQ/flank #CAD s/p CABG #ESRD on HD #T2DM, HTN #h/o esophagitis, h. pylori (treated) PLAN: -CT reviewed, no acute abdominal findings however there are non-obstructing renal calculi possible causing the pain -Unlikely diverticulitis, presentations would be atypical. -continue pain management per primary. -Continue abx per primary: Flagyl, moxifloxacin. -Continue PPI -No endoscopic procedures planned. -Recommend urologic evaluation -Miralax for constipation -Monitor diet, she may tolerate liquids over solids at this time. Case discussed with Dr. Chen, see attestation. - Date & Time Date: 06/08/18 Time: 09:27 <Escobar Chen Y - Last Filed: 06/08/18 14:33> Meds - Medications Medications: Current Medications Amlodipine Besylate (Norvasc) 10 mg PO DAILY [facility] Last Admin: 06/08/18 10:54 Dose: 10 mg Aspirin (Ecotrin) 81 mg PO DAILY [facility] Last Admin: 06/08/18 10:54 Dose: 81 mg Ferrous Sulfate (Feosol) 325 mg PO TID [facility] Last Admin: 06/08/18 11:00 Dose: 325 mg Heparin Sodium (Porcine) (Heparin) 5,000 units SC Q12 [facility] Last Admin: 06/08/18 10:59 Dose: 5,000 units Home Med (Insulin Glargine,Hum.Rec.Anlog [Lantus Solostar]) 25 unit SQ HS [facility] Hydralazine HCl (Apresoline) 25 mg PO TID [facility] Last Admin: 06/08/18 10:54 Dose: 25 mg Hydromorphone HCl (Dilaudid) 2 mg IVP Q8H PRN PRN Reason: Pain, severe (8-10) Last Admin: 06/08/18 02:31 Dose: 2 mg Metronidazole 250 mg/ (Miscellaneous) 50 mls @ 100 mls/hr IVPB Q12H [facility]; Protocol Last Admin: 06/08/18 09:00 Dose: 100 mls/hr Moxifloxacin HCl (Avelox Iv 400mg/250ml Ns) 400 mg in 250 mls @ 167 mls/hr IVPB Q24H [facility]; Protocol Last Admin: 06/08/18 11:41 Dose: 167 mls/hr Insulin Aspart (Novolog) 5 unit SC AC [facility] Last Admin: 06/08/18 12:26 Dose: 5 units Metoprolol Succinate (Toprol Xl) 25 mg PO DAILY [facility] Last Admin: 06/08/18 10:54 Dose: 25 mg Pantoprazole Sodium (Protonix Ec Tab) 40 mg PO DAILY [facility] Last Admin: 06/08/18 10:54 Dose: 40 mg Polyethylene Glycol (Miralax) 17 gm PO BID [facility] Sevelamer Carbonate (Renvela) 2.4 gm PO TIDCC [facility] Last Admin: 06/08/18 12:28 Dose: 2.4 gm Results - Vital Signs Recent Vital Signs: Last Vital Signs Temp 97.6 F 06/08/18 08:33 Pulse 95 H 06/08/18 08:33 Resp 20 06/08/18 08:33 BP 167/93 H 06/08/18 08:33 Pulse Ox 98 06/08/18 08:33 - Labs Result Diagrams: 06/07/18 15:16 06/07/18 15:16 Labs: Laboratory Results - last 24 hr 06/07/18 06/07/18 06/07/18 15:16 15:16 15:16 WBC 13.2 H RBC 4.55 Hgb 11.5 D Hct 36.1 MCV 79.3 L D MCH 25.2 L MCHC 31.8 L RDW 19.7 H Plt Count 433 H D MPV 7.3 Neut % (Auto) 71.0 Lymph % (Auto) 16.1 L [place] % (Auto) 9.1 Eos % (Auto) 2.6 Baso % (Auto) 1.2 Neut # (Auto) 9.3 H Lymph # (Auto) 2.1 [place] # (Auto) 1.2 H Eos # (Auto) 0.3 Baso # (Auto) 0.2 PT 12.1 INR 1.1 APTT 33 Sodium 135 Potassium 5.2 Chloride 105 Carbon Dioxide 24 Anion Gap 11 BUN 20 H Creatinine 3.2 H Est GFR ( Amer) 18 Est GFR (Non-Af Amer) 15 POC Glucose (mg/dL) Random Glucose 179 H D Calcium 9.0 Total Bilirubin 0.6 AST 22 ALT 16 Alkaline Phosphatase 104 Total Creatine Kinase 130 CK-MB (Mass) 5.32 H Troponin I 0.0200 Total Protein 6.8 Albumin 3.3 L Globulin 3.5 Albumin/Globulin Ratio 0.9 L Lipase 180 Urine Color Urine Clarity Urine pH Ur Specific [place] Urine Protein Urine Glucose (UA) Urine Ketones Urine Blood Urine Nitrate Urine Bilirubin Urine Urobilinogen Ur Leukocyte Esterase Urine WBC (Auto) Urine RBC (Auto) Ur Squamous Epith Cells Hyaline Casts Urine HCG, Qual 06/07/18 06/08/18 06/08/18 16:52 06:38 11:53 WBC RBC Hgb Hct MCV MCH MCHC RDW Plt Count MPV Neut % (Auto) Lymph % (Auto) [place] % (Auto) Eos % (Auto) Baso % (Auto) Neut # (Auto) Lymph # (Auto) [place] # (Auto) Eos # (Auto) Baso # (Auto) PT INR APTT Sodium Potassium Chloride Carbon Dioxide Anion Gap BUN Creatinine Est GFR ( Amer) Est GFR (Non-Af Amer) POC Glucose (mg/dL) 151 H 136 H Random Glucose Calcium Total Bilirubin AST ALT Alkaline Phosphatase Total Creatine Kinase CK-MB (Mass) Troponin I Total Protein Albumin Globulin Albumin/Globulin Ratio Lipase Urine Color Yellow Urine Clarity Clear Urine pH 8.0 Ur Specific [place] 1.023 Urine Protein 3+ H Urine Glucose (UA) 3+ H Urine Ketones Trace Urine Blood Negative Urine Nitrate Negative Urine Bilirubin Negative Urine Urobilinogen Normal Ur Leukocyte Esterase Neg Urine WBC (Auto) 3 Urine RBC (Auto) 3 Ur Squamous Epith Cells 1 Hyaline Casts 6-10 H Urine HCG, Qual Negative Attending/Attestation - Attestation I have personally seen and examined this patient.: Yes I have fully participated in the care of the patient.: Yes I have reviewed all pertinent clinical information: Yes Notes (Text): 06/08/18 14:29 I have seen and examined patient with GI fellow. Agree with above documentation with the following additions. In brief, this is a 53 year old female with history of DM, ESRD, HTN, CAD/CABG who presents to hospital with progressive abdominal pain. She reports symptom onset 6 days ago and describes a sharp, burning 8/10 intensity pain that is on L flank and radiates to back. She also reports ongoing chronic constipation often times requiring laxative therapy for relief. She denies nausea, vomiting, fever/chills, weight loss, rectal bleed ing, or change in bowel habits. She had an EGD/colonoscopy in April [address] Calle which showed poor bowel preparation, esophagitis. DM HTN ESRD HTN CAD/CABG Abdominal pain CT imaging reviewed by me showing fecal retention, nephrolithiasis - Liquid diet as tolerated - Continue with antibiotic therapy - Continue with IVF hydration, supportive care - Pain control - Consider urology evaluation given sharp L CVA tenderness on physical exam and CT findings - Maintain bowel regimen to prevent constipation - Will continue to monitor patient clinical course
--- NOTE | 2018-06-08 10:31 | CT ---
PROCEDURE: CT Abdomen and Pelvis without Oral or IV contrast. HISTORY: ABD PAIN, L>R, L FLANK PAIN COMPARISON: CT abdomen and pelvis with contrast performed 05/20/17, right upper quadrant ultrasound performed 02/17/18 TECHNIQUE: Contiguous axial images of the abdomen and pelvis. No oral or IV contrast administered. Coronal and Sagittal reformats generated and reviewed. Radiation dose: Total exam DLP = 284.62 mGy-cm. This CT exam was performed using one or more of the following dose reduction techniques: Automated exposure control, adjustment of the mA and/or kV according to patient size, and/or use of iterative reconstruction technique. FINDINGS: There is limited evaluation of the solid organs without the administration of IV contrast. LOWER THORAX: Moderate bilateral pleural effusions and bibasilar atelectasis/infiltrates. Partially imaged cardiomegaly. Median sternotomy wires. LIVER: Hepatomegaly. GALLBLADDER AND BILE DUCTS: Unremarkable. PANCREAS: Unremarkable. SPLEEN: Unremarkable. ADRENALS: Unremarkable. KIDNEYS AND URETERS: No hydronephrosis or obstructing renal calculus. Punctate nonobstructing bilateral renal calculi. BLADDER: The urinary bladder appears unremarkable. REPRODUCTIVE: Uterus is absent consistent with hysterectomy. APPENDIX: The appendix appears within normal limits of caliber. No secondary signs of acute appendicitis. BOWEL: The stomach is nondistended. Lack of oral contrast limits evaluation for bowel pathology. The bowel loops appear within normal limits of caliber without evidence of intestinal obstruction. PERITONEUM: No significant free fluid. No definite free air. LYMPH NODES: No bulky lymphadenopathy identified. VASCULATURE: Dense atherosclerotic calcifications of the aorta. No aortic aneurysm. BONES: Heterogeneous patchy sclerotic appearance of the osseous structures particularly thoracolumbar spine; correlate clinically for possibility of metabolic disorders. OTHER FINDINGS: None. IMPRESSION: Moderate bilateral pleural effusions and bibasilar atelectasis/infiltrates. Partially imaged cardiomegaly. Hepatomegaly. Heterogeneous sclerotic pattern involving the osseous structures, in particularly the thoracolumbar spine; suggest follow-up MRI if indicated. Correlate clinically for possibility of metabolic disorders. Additional findings as above. Preliminary impression was provided by [facility].
[2018-06-08] MEDS: Metoprolol Succinate 25 mg XL Tab PO SCH (10:54)
[2018-06-08] MEDS: Pantoprazole 40 mg EC Tab PO SCH (10:54)
[2018-06-08] MEDS: Moxifloxacin IV 400mg/250ml NS 400 MG/250 ML BAG IVPB SCH (11:41)
--- NOTE | 2018-06-08 13:51 | CP.PCM.HP ---
Past Patient History - Infectious Disease Hx of Infectious Diseases: None - Past Medical History & Family History Past Medical History?: Yes - Past Social History Smoking Status: Never Smoked - CARDIAC Hx Cardiac Disorders: Yes Hx Hypercholesterolemia: Yes Hx Hypertension: Yes - PULMONARY Hx Respiratory Disorders: Yes Hx Chronic Obstructive Pulmonary Disease (COPD): Yes - NEUROLOGICAL Hx Neurological Disorder: Yes Hx Syncope: Yes - HEENT Hx HEENT Problems: No - RENAL Hx Chronic Kidney Disease: Yes (esrd) Date of Last Dialysis Treatment: 06/05/18 - ENDOCRINE/METABOLIC Hx Endocrine Disorders: Yes Hx Diabetes Mellitus Type 1: Yes - HEMATOLOGICAL/ONCOLOGICAL Hx Blood Disorders: Yes Hx Anemia: Yes - INTEGUMENTARY Hx Dermatological Problems: No - MUSCULOSKELETAL/RHEUMATOLOGICAL Hx Arthritis: Yes (KNEE; BACK) Hx Falls: No - GASTROINTESTINAL Hx Gastrointestinal Disorders: Yes Hx Gastroesophageal Reflux: Yes - GENITOURINARY/GYNECOLOGICAL Hx Genitourinary Disorders: No - PSYCHIATRIC Hx Psychophysiologic Disorder: No Hx Substance Use: No - SURGICAL HISTORY Hx Surgeries: Yes Hx Coronary Artery Bypass Graft: Yes (09/19) Hx Hysterectomy: Yes - ANESTHESIA Hx Anesthesia: Yes Hx Anesthesia Reactions: No Hx Malignant Hyperthermia: No Has any member of the family had a problem w/ anesthesia?: No Meds Allergies/Adverse Reactions: Allergies Allergy/AdvReac Type Severity Reaction Status Date / Time No Known Allergies Allergy Verified 06/07/18 14:41 Physical Exam - Constitutional Appears: Well - Head Exam Head Exam: ATRAUMATIC, NORMAL INSPECTION, NORMOCEPHALIC - Eye Exam Eye Exam: EOMI, Normal appearance, PERRL Pupil Exam: NORMAL ACCOMODATION, PERRL - ENT Exam ENT Exam: Mucous Membranes Moist, Normal Exam - Neck Exam Neck exam: Positive for: Normal Inspection - Respiratory Exam Respiratory Exam: Decreased Breath Sounds - Cardiovascular Exam Cardiovascular Exam: REGULAR RHYTHM, +S1, +S2 - GI/Abdominal Exam GI & Abdominal Exam: Diminished Bowel Sounds, Soft - Rectal Exam Rectal Exam: Deferred Results - Vital Signs Recent Vital Signs: Last Vital Signs Temp 97.6 F 06/08/18 08:33 Pulse 95 H 06/08/18 08:33 Resp 20 06/08/18 08:33 BP 167/93 H 06/08/18 08:33 Pulse Ox 98 06/08/18 08:33 - Labs Result Diagrams: 06/07/18 15:16 06/07/18 15:16 Labs: Laboratory Results - last 24 hr 06/07/18 06/07/18 06/07/18 15:16 15:16 15:16 WBC 13.2 H RBC 4.55 Hgb 11.5 D Hct 36.1 MCV 79.3 L D MCH 25.2 L MCHC 31.8 L RDW 19.7 H Plt Count 433 H D MPV 7.3 Neut % (Auto) 71.0 Lymph % (Auto) 16.1 L [place] % (Auto) 9.1 Eos % (Auto) 2.6 Baso % (Auto) 1.2 Neut # (Auto) 9.3 H Lymph # (Auto) 2.1 [place] # (Auto) 1.2 H Eos # (Auto) 0.3 Baso # (Auto) 0.2 PT 12.1 INR 1.1 APTT 33 Sodium 135 Potassium 5.2 Chloride 105 Carbon Dioxide 24 Anion Gap 11 BUN 20 H Creatinine 3.2 H Est GFR ( Amer) 18 Est GFR (Non-Af Amer) 15 POC Glucose (mg/dL) Random Glucose 179 H D Calcium 9.0 Total Bilirubin 0.6 AST 22 ALT 16 Alkaline Phosphatase 104 Total Creatine Kinase 130 CK-MB (Mass) 5.32 H Troponin I 0.0200 Total Protein 6.8 Albumin 3.3 L Globulin 3.5 Albumin/Globulin Ratio 0.9 L Lipase 180 Urine Color Urine Clarity Urine pH Ur Specific [place] Urine Protein Urine Glucose (UA) Urine Ketones Urine Blood Urine Nitrate Urine Bilirubin Urine Urobilinogen Ur Leukocyte Esterase Urine WBC (Auto) Urine RBC (Auto) Ur Squamous Epith Cells Hyaline Casts Urine HCG, Qual 06/07/18 06/08/18 06/08/18 16:52 06:38 11:53 WBC RBC Hgb Hct MCV MCH MCHC RDW Plt Count MPV Neut % (Auto) Lymph % (Auto) [place] % (Auto) Eos % (Auto) Baso % (Auto) Neut # (Auto) Lymph # (Auto) [place] # (Auto) Eos # (Auto) Baso # (Auto) PT INR APTT Sodium Potassium Chloride Carbon Dioxide Anion Gap BUN Creatinine Est GFR ( Amer) Est GFR (Non-Af Amer) POC Glucose (mg/dL) 151 H 136 H Random Glucose Calcium Total Bilirubin AST ALT Alkaline Phosphatase Total Creatine Kinase CK-MB (Mass) Troponin I Total Protein Albumin Globulin Albumin/Globulin Ratio Lipase Urine Color Yellow Urine Clarity Clear Urine pH 8.0 Ur Specific [place] 1.023 Urine Protein 3+ H Urine Glucose (UA) 3+ H Urine Ketones Trace Urine Blood Negative Urine Nitrate Negative Urine Bilirubin Negative Urine Urobilinogen Normal Ur Leukocyte Esterase Neg Urine WBC (Auto) 3 Urine RBC (Auto) 3 Ur Squamous Epith Cells 1 Hyaline Casts 6-10 H Urine HCG, Qual Negative
--- NOTE | 2018-06-08 18:10 | CP.PCM.CON ---
History of Present Illness - History of Present Illness History of Present Illness: pt is seen and examined, full consult is dictated #[id number] on hd 2 x a week, /tue Past Patient History - Infectious Disease Hx of Infectious Diseases: None - Past Medical History & Family History Past Medical History?: Yes - Past Social History Smoking Status: Never Smoked - CARDIAC Hx Cardiac Disorders: Yes Hx Hypercholesterolemia: Yes Hx Hypertension: Yes - PULMONARY Hx Respiratory Disorders: Yes Hx Chronic Obstructive Pulmonary Disease (COPD): Yes - NEUROLOGICAL Hx Neurological Disorder: Yes Hx Syncope: Yes - HEENT Hx HEENT Problems: No - RENAL Hx Chronic Kidney Disease: Yes (esrd) Date of Last Dialysis Treatment: 06/05/18 - ENDOCRINE/METABOLIC Hx Endocrine Disorders: Yes Hx Diabetes Mellitus Type 1: Yes - HEMATOLOGICAL/ONCOLOGICAL Hx Blood Disorders: Yes Hx Anemia: Yes - INTEGUMENTARY Hx Dermatological Problems: No - MUSCULOSKELETAL/RHEUMATOLOGICAL Hx Arthritis: Yes (KNEE; BACK) Hx Falls: No - GASTROINTESTINAL Hx Gastrointestinal Disorders: Yes Hx Gastroesophageal Reflux: Yes - GENITOURINARY/GYNECOLOGICAL Hx Genitourinary Disorders: No - PSYCHIATRIC Hx Psychophysiologic Disorder: No Hx Substance Use: No - SURGICAL HISTORY Hx Surgeries: Yes Hx Coronary Artery Bypass Graft: Yes (09/19) Hx Hysterectomy: Yes - ANESTHESIA Hx Anesthesia: Yes Hx Anesthesia Reactions: No Hx Malignant Hyperthermia: No Has any member of the family had a problem w/ anesthesia?: No Meds Allergies/Adverse Reactions: Allergies Allergy/AdvReac Type Severity Reaction Status Date / Time No Known Allergies Allergy Verified 06/07/18 14:41 - Medications Medications: Current Medications Amlodipine Besylate (Norvasc) 10 mg PO DAILY [facility] Last Admin: 06/08/18 10:54 Dose: 10 mg Aspirin (Ecotrin) 81 mg PO DAILY [facility] Last Admin: 06/08/18 10:54 Dose: 81 mg Ferrous Sulfate (Feosol) 325 mg PO TID [facility] Last Admin: 06/08/18 14:51 Dose: 325 mg Heparin Sodium (Porcine) (Heparin) 5,000 units SC Q12 [facility] Last Admin: 06/08/18 10:59 Dose: 5,000 units Hydralazine HCl (Apresoline) 25 mg PO TID [facility] Last Admin: 06/08/18 14:51 Dose: 25 mg Hydromorphone HCl (Dilaudid) 2 mg IVP Q8H PRN PRN Reason: Pain, severe (8-10) Last Admin: 06/08/18 15:00 Dose: 2 mg Metronidazole 250 mg/ (Miscellaneous) 50 mls @ 100 mls/hr IVPB Q12H [facility]; Protocol Last Admin: 06/08/18 09:00 Dose: 100 mls/hr Moxifloxacin HCl (Avelox Iv 400mg/250ml Ns) 400 mg in 250 mls @ 167 mls/hr IVPB Q24H [facility]; Protocol Last Admin: 06/08/18 11:41 Dose: 167 mls/hr Insulin Aspart (Novolog) 5 unit SC AC [facility] Last Admin: 06/08/18 12:26 Dose: 5 units Insulin Glargine (Lantus) 25 unit SC HS [facility] Metoprolol Succinate (Toprol Xl) 25 mg PO DAILY [facility] Last Admin: 06/08/18 10:54 Dose: 25 mg Ondansetron HCl (Zofran Tab) 4 mg PO Q6H PRN PRN Reason: Nausea/Vomiting Pantoprazole Sodium (Protonix Ec Tab) 40 mg PO DAILY [facility] Last Admin: 06/08/18 10:54 Dose: 40 mg Polyethylene Glycol (Miralax) 17 gm PO BID [facility] Sevelamer Carbonate (Renvela) 2.4 gm PO TIDCC [facility] Last Admin: 06/08/18 12:28 Dose: 2.4 gm Results - Vital Signs Recent Vital Signs: Last Vital Signs Temp 97.3 F L 06/08/18 15:32 Pulse 68 06/08/18 15:32 Resp 20 06/08/18 15:32 BP 134/73 06/08/18 15:32 Pulse Ox 97 06/08/18 15:32 - Labs Result Diagrams: 06/07/18 15:16 06/07/18 15:16 Labs: Laboratory Results - last 24 hr 06/08/18 06/08/18 06/08/18 06:38 11:53 16:44 POC Glucose (mg/dL) 151 H 136 H 173 H
[2018-06-08] MEDS: POLYETHYLENE GLYCOL 3350 17 GM/Dose PACKET PO SCH (18:21)
[2018-06-08] MEDS ORDERED: INSULIN GLARGINE HUM REC ANLOG 25 UNIT SQ SCH (22:00)
[2018-06-08] MEDS: (Lantus) Insulin Glargine, Recombinant SC SCH (22:17)
--- NOTE | 2018-06-08 23:20 | CARD ---
APPROVED REPORT Date of service: 06/07/2018 EKG Measurement Heart [id number] <Conclusion> Normal sinus rhythm ST & T wave abnormality, consider lateral ischemia Abnormal ECG
--- NOTE | 2018-06-09 04:58 | CON ---
DATE: 06/08/2018 RENAL CONSULTATION LOCATION: The patient is located in room 663, bed A. REQUESTED BY: Josue Marroquin MD REASON FOR RENAL CONSULTATION: End-stage renal disease, continuation of hemodialysis. HISTORY OF PRESENT ILLNESS: Mrs. Orozco is a 53-year-old middle-aged Turkmen female with a past medical history significant for longstanding hypertension, diabetes, diabetic retinopathy, poor vision, CHF, coronary artery disease, hyperlipidemia, status post CABG who was recently started on hemodialysis for renal failure, on hemodialysis two times a week on Tuesday and Tuesday. The patient was admitted with chief complaints of back pain and also complaints of nausea and vomiting for three days associated with some abdominal discomfort. Denies any fever. Denies any chest pain or palpitation. Denies any shortness of breath. Denies any dysuria or frequency. Denies any swelling of the legs. The patient claims decreased p.o. intake for the last few days. PAST MEDICAL HISTORY: Significant for hypertension, diabetes type 2, coronary artery disease, COPD, end-stage renal disease, anemia. PAST SURGICAL HISTORY: Status post CABG and status post left upper extremity AV fistula and also Perm-A-Cath. ALLERGIES: NO KNOWN DRUG ALLERGIES. SOCIAL HISTORY: No smoking. No alcohol. No drugs. FAMILY HISTORY: Not significant. CURRENT MEDICATIONS: Include as follows: Hydralazine 25 mg p.o. t.i.d., moxifloxacin 400 mg every 24 hours, Dilaudid 2 mg IV every 8 hours, aspirin 81 mg p.o. daily, Feosol 325 mg p.o. t.i.d., subcu heparin 5000 every 12 hours, Lantus 25 units subcu at bedtime, Flagyl 250 mg IV every 12 hours, amlodipine 10 mg daily, MiraLax, Protonix, Renvela 2.4 g p.o. t.i.d., metoprolol 25 mg p.o. daily, and Zofran 4 mg p.o. every 6 hours. REVIEW OF THE SYSTEMS: Significant for nausea, vomiting, and diffuse abdominal pain. All other review of systems reviewed and negative. PHYSICAL EXAMINATION: VITAL SIGNS: As follows: Blood pressure 134/73, pulse 68, respirations 20, temperature 97.3, saturation 97%. Height 5 feet 5 inches. Weight is 120 pounds. GENERAL: Mrs. Orozco is 53-year-old middle-aged Turkmen female, moderately built, moderately nourished, not in acute distress. HEENT: Pupils normal an d reactive to light and accommodation. Conjunctivae pink. Sclerae anicteric with a poor vision. Tongue is moist and trachea is midline. No thyroid enlargement. LUNGS: Symmetric on both sides. Bilateral breath sounds present. Clear to auscultation. CARDIOVASCULAR SYSTEM: [place] at the fifth intercostal space, midclavicular line. S1 and S2 audible. No murmur or gallop. ABDOMEN: Normal in appearance. Soft. Diffuse mild tenderness all over the abdomen. No guarding. No rigidity. Bowel sounds present. No abdominal bruit. CENTRAL NERVOUS SYSTEM: The patient is alert, awake and oriented x3. Nonfocal neuro examination. Cranial nerves II through XII grossly intact. Sensory and motor system is within normal limits. EXTREMITIES: No cyanosis, no clubbing, no edema. LABORATORY DATA: Include as follows: As of 06/07/2018: Urine is yellow, clear, pH of 8, specific gravity 1.023, protein 3+, glucose 3+, ketone negative, blood negative, nitrite negative, bilirubin negative, urobilinogen normal, leukocyte esterase negative, wbc's 3, rbc's 3, and hyaline cast 6-10. Beta hCG is negative. Accu-Cheks 151, 136, 173. Other laboratory data as of 06/07/2018: WBC 13.2, hemoglobin 11.5, hematocrit is 36.1, MCV of 79.3, platelets 433. PT 12.1, PTT 33. Sodium 135, potassium 5.2, chloride 105, CO2 of 24, BUN 20, creatinine 3, glucose 179, calcium is 9. Total bili 0.6, AST 22, ALT 16, alkaline phosphatase 104. CPK 130, CK-MB is 5.3. Troponin 0.02, total protein 6.8, albumin is 3.3. Chest x-ray as of 06/07/2018: Mild central vascular prominence, cardiomegaly. CT of the abdomen and pelvis as of 06/07/2018, impression: Moderate bilateral pleural effusions and bibasilar atelectasis or infiltrates, partially imaged cardiomegaly, hepatomegaly, heterogeneous sclerotic pattern involving the osseous structures, particularly thoracolumbar spine, suggest followup MRI if indicated, correlate clinically for possibility of metastatic disease. Kidneys and ureter: No hydronephrosis or obstructing renal calculi. Punctate nonobstructing bilateral renal calculi. Spleen unremarkable. Adrenals unremarkable. Pancreas unremarkable. Gallbladder unremarkable. Liver, hepatomegaly. ASSESSMENT: In summary, Mrs. Orozco is a 53-year-old middle-aged Turkmen female with a history of longstanding hypertension, diabetes, coronary artery disease, status post coronary artery bypass graft, with back pain persistent for long time, also complaining of diffuse abdominal pain, decreased oral intake, nausea and vomiting for few days. Last hemodialysis was on Tuesday. 1. End-stage renal disease. Continue hemodialysis two times a week. We will consider three times if the patient agrees. 2. Hypertension. 3. Diabetes. 4. Diffuse abdominal pain, etiology is not clear, rule out colitis, rule out gastroenteritis or food poisoning. 5. Rule out malignancy, rule out metastatic disease due to heterogeneous sclerotic pattern involving the osseous structures especially in the thoracolumbar spine on CT of the abdomen and pelvis. Please consider mammogram and also check alpha-fetoprotein, CEA, CA19-9 and CA-125. We will follow with you. Thank you for allowing me to participate in your patient's care. Next hemodialysis is on Tuesday. Vasiliy Emery MD
[2018-06-09] MEDS: (Novolog) Insulin Aspart, Recombinant 100 u/ml 10 ml vial SC SCH ×3 (07:33→17:44)
[2018-06-09] MEDS: metroNIDAZOLE IV 500 mg/100 ml 250 MG in Premixed IV 1 EA IVPB SCH ×2 (08:35→20:14)
[2018-06-09 09:33] LABS: SQUAMOUS EPITHIAL 2 /hpf (0-5); URINE BACTERIA RARE (<OCC); URINE BILIRUBIN NEGATIVE (NEGATIVE); URINE BLOOD NEGATIVE (NEGATIVE); URINE CLARITY Clear (Clear); URINE COLOR Yellow (YELLOW); URINE GLUCOSE (UA) 3+ mg/dL (Normal); URINE LEUKOCYTE ESTERASE NEG Leu/uL (Negative); URINE PROTEIN 3+ mg/dL (NEGATIVE); URINE UROBILINOGEN NORMAL mg/dL (0.2-1.0)
[2018-06-09] MEDS: Sevelamer Carb 2.4 gm/Packet PO SCH ×3 (09:44→17:43)
[2018-06-09] MEDS: Pantoprazole 40 mg EC Tab PO SCH (09:44)
[2018-06-09] MEDS: Metoprolol Succinate 25 mg XL Tab PO SCH (09:44)
[2018-06-09] MEDS: POLYETHYLENE GLYCOL 3350 17 GM/Dose PACKET PO SCH ×2 (09:44→17:43)
[2018-06-09] MEDS: Moxifloxacin IV 400mg/250ml NS 400 MG/250 ML BAG IVPB SCH (09:45)
[2018-06-09 12:02] LABS: HEMOGLOBIN 9.8 g/dL (11.0-16.0); MEAN CELL VOLUME 79.6 fL (81.0-99.0); MEAN CORPUSCULAR HEMOGLOBIN 25.9 pg (27.0-31.0); MEAN CORPUSCULAR HGB CONC 32.5 g/dL (33.0-37.0); MEAN PLATELET VOLUME 7.5 fL (7.2-11.7); RBC 3.8 Mil/uL (3.80-5.20); RED CELL DISTRIBUTION WIDTH 19.7 % (11.5-14.5); WHITE BLOOD COUNT 12.2 K/uL (4.8-10.8)
--- NOTE | 2018-06-09 12:02 | CP.PCM.PN ---
<Elton Quintero - Last Filed: 06/09/18 12:00> Subjective - Date & Time of Evaluation Date of Evaluation: 06/09/18 Time of Evaluation: 12:00 - Subjective Subjective: GI Fellow PGY4, progress note. Patient appears to be in less discomfort today, but has been receiving 2mg Dilaudid. Still with left back and flank pain. She is tired and feels nauseas with vomiting with minimal food intake. No BMs today. 5pt ROS completed and negative except for above. Objective - Vital Signs/Intake and Output Vital Signs (last 24 hours): Temp Pulse Resp BP Pulse Ox 97.6 F 74 20 125/75 94 L 06/09/18 07:50 06/09/18 07:50 06/09/18 07:50 06/09/18 07:50 06/09/18 07:50 Intake and Output: 06/09/18 06/09/18 06:59 18:59 Intake Total 340 Balance 340 - Medications Medications: Current Medications Amlodipine Besylate (Norvasc) 10 mg PO DAILY [facility] Last Admin: 06/09/18 09:44 Dose: 10 mg Aspirin (Ecotrin) 81 mg PO DAILY [facility] Last Admin: 06/09/18 09:47 Dose: 81 mg Ferrous Sulfate (Feosol) 325 mg PO TID [facility] Last Admin: 06/09/18 09:44 Dose: 325 mg Heparin Sodium (Porcine) (Heparin) 5,000 units SC Q12 [facility] Last Admin: 06/09/18 09:44 Dose: 5,000 units Hydralazine HCl (Apresoline) 25 mg PO TID [facility] Last Admin: 06/09/18 09:44 Dose: 25 mg Hydromorphone HCl (Dilaudid) 2 mg IVP Q8H PRN PRN Reason: Pain, severe (8-10) Last Admin: 06/09/18 07:27 Dose: 2 mg Metronidazole 250 mg/ (Miscellaneous) 50 mls @ 100 mls/hr IVPB Q12H [facility]; Protocol Last Admin: 06/09/18 08:35 Dose: 100 mls/hr Moxifloxacin HCl (Avelox Iv 400mg/250ml Ns) 400 mg in 250 mls @ 167 mls/hr IVPB Q24H [facility]; Protocol Last Admin: 06/09/18 09:45 Dose: 167 mls/hr Insulin Aspart (Novolog) 5 unit SC AC [facility] Last Admin: 06/09/18 07:33 Dose: Not Given Insulin Glargine (Lantus) 25 unit SC HS [facility] Last Admin: 06/08/18 22:17 Dose: 25 units Metoprolol Succinate (Toprol Xl) 25 mg PO DAILY [facility] Last Admin: 06/09/18 09:44 Dose: 25 mg Ondansetron HCl (Zofran Inj) 4 mg IVP Q6H PRN PRN Reason: Nausea/Vomiting Last Admin: 06/09/18 10:35 Dose: 4 mg Pantoprazole Sodium (Protonix Ec Tab) 40 mg PO DAILY [facility] Last Admin: 06/09/18 09:44 Dose: 40 mg Polyethylene Glycol (Miralax) 17 gm PO BID [facility] Last Admin: 06/09/18 09:44 Dose: 17 gm Sevelamer Carbonate (Renvela) 2.4 gm PO TIDCC [facility] Last Admin: 06/09/18 09:44 Dose: 2.4 gm - Labs Labs: 06/07/18 15:16 06/07/18 15:16 PT 12.1 SECONDS (9.7-12.2) 06/07/18 15:16 INR 1.1 06/07/18 15:16 APTT 33 SECONDS (21-34) 06/07/18 15:16 - Constitutional Appears: Well, Non-toxic - Head Exam Head Exam: ATRAUMATIC, NORMAL INSPECTION - Respiratory Exam Respiratory Exam: Clear to Ausculation Bilateral, NORMAL BREATHING PATTERN - Cardiovascular Exam Cardiovascular Exam: REGULAR RHYTHM, +S1, +S2 - GI/Abdominal Exam GI & Abdominal Exam: Soft, Normal Bowel Sounds. absent: Tenderness - Extremities Exam Extremities Exam: absent: Normal Inspection - Neurological Exam Neurological Exam: Alert, Awake, Oriented x3 - Psychiatric Exam Psychiatric exam: Depressed, Flat Affect - Skin Skin Exam: Dry, Normal Color Assessment and Plan - Assessment and Plan (Free Text) Assessment: #Abdominal pain, LLQ/flank/back #CAD s/p CABG #ESRD on HD #T2DM, HTN #h/o esophagitis, h. pylori (treated) PLAN: -CT reviewed, no acute abdominal findings however there are non-obstructing renal calculi possible causing the pain -Unlikely diverticulitis, presentations would be atypical. No obvious GI condition present as cause for back pain. -continue pain management per primary. -Continue abx per primary -Continue PPI -No endoscopic procedures planned. -Recommend urologic evaluation, may benefit from flomax, pyridium -Miralax for constipation -Monitor diet, decrease to liquid diet. Case discussed with Dr. Chen, see attestation. <Escobar Chen - Last Filed: 06/09/18 13:30> Objective - Vital Signs/Intake and Output Vital Signs (last 24 hours): Temp Pulse Resp BP Pulse Ox 97.6 F 74 20 125/75 94 L 06/09/18 07:50 06/09/18 07:50 06/09/18 07:50 06/09/18 07:50 06/09/18 07:50 Intake and Output: 06/09/18 06/09/18 06:59 18:59 Intake Total 340 Balance 340 - Medications Medications: Current Medications Amlodipine Besylate (Norvasc) 10 mg PO DAILY [facility] Last Admin: 06/09/18 09:44 Dose: 10 mg Aspirin (Ecotrin) 81 mg PO DAILY [facility] Last Admin: 06/09/18 09:47 Dose: 81 mg Ferrous Sulfate (Feosol) 325 mg PO TID [facility] Last Admin: 06/09/18 09:44 Dose: 325 mg Heparin Sodium (Porcine) (Heparin) 5,000 units SC Q12 [facility] Last Admin: 06/09/18 09:44 Dose: 5,000 units Hydralazine HCl (Apresoline) 25 mg PO TID [facility] Last Admin: 06/09/18 09:44 Dose: 25 mg Hydromorphone HCl (Dilaudid) 2 mg IVP Q8H PRN PRN Reason: Pain, severe (8-10) Last Admin: 06/09/18 07:27 Dose: 2 mg Metronidazole 250 mg/ (Miscellaneous) 50 mls @ 100 mls/hr IVPB Q12H [facility]; Pro tocol Last Admin: 06/09/18 08:35 Dose: 100 mls/hr Moxifloxacin HCl (Avelox Iv 400mg/250ml Ns) 400 mg in 250 mls @ 167 mls/hr IVPB Q24H [facility]; Protocol Last Admin: 06/09/18 09:45 Dose: 167 mls/hr Insulin Aspart (Novolog) 5 unit SC AC [facility] Last Admin: 06/09/18 12:10 Dose: Not Given Insulin Glargine (Lantus) 25 unit SC HS [facility] Last Admin: 06/08/18 22:17 Dose: 25 units Metoprolol Succinate (Toprol Xl) 25 mg PO DAILY [facility] Last Admin: 06/09/18 09:44 Dose: 25 mg Ondansetron HCl (Zofran Inj) 4 mg IVP Q6H PRN PRN Reason: Nausea/Vomiting Last Admin: 06/09/18 10:35 Dose: 4 mg Pantoprazole Sodium (Protonix Ec Tab) 40 mg PO DAILY [facility] Last Admin: 06/09/18 09:44 Dose: 40 mg Polyethylene Glycol (Miralax) 17 gm PO BID [facility] Last Admin: 06/09/18 09:44 Dose: 17 gm Sevelamer Carbonate (Renvela) 2.4 gm PO TIDCC [facility] Last Admin: 06/09/18 12:10 Dose: Not Given - Labs Labs: 06/09/18 11:53 06/09/18 11:53 PT 12.1 SECONDS (9.7-12.2) 06/07/18 15:16 INR 1.1 06/07/18 15:16 APTT 33 SECONDS (21-34) 06/07/18 15:16 Attending/Attestation - Attestation I have personally seen and examined this patient.: Yes I have fully participated in the care of the patient.: Yes I have reviewed all pertinent clinical information, including history, physical exam and plan: Yes Notes (Text): 06/09/18 13:27 I have seen and examined patient with GI fellow. No acute events overnight, she is seen resting in bed, appears uncomfortable. She complains of ongoing sharp left sided back pain radiating to flank. She also reports ongoing nausea and one episode of vomiting after attempted meal consumption this morning. Review of vitals from today are normal. CAD/CABG ESRD on HD DM / HTN Abdominal pain, nephrolithiasis - Liquid diet as tolerated - Continue with PPI therapy - Continue with IVF hydration, supportive care - Suggest urology evaluation - Consider changing dilaudid as patient seems to be having adverse effects from medication (lethargy, nausea, etc) - Maintain bowel regimen to prevent constipation - Will continue to monitor patient clinical course
[2018-06-09 12:20] LABS: ALB/GLOB RATIO 0.9 (1.0-2.1); ALBUMIN 2.7 g/dL (3.5-5.0); CALCIUM 8.1 mg/dl (8.6-10.4)
[2018-06-09] MEDS: Sodium Chloride 0.9% 1,000 ML IV SCH (14:23)
--- NOTE | 2018-06-09 14:45 | CP.PCM.PN ---
<Jenny Ling - Last Filed: 06/09/18 14:28> Subjective - Date & Time of Evaluation Date of Evaluation: 06/09/18 Time of Evaluation: 07:00 - Subjective Subjective: Surgery: Dr. Pope Pt seen and examined. Continues to have left flank pain but states abdominal pain has improved. She states she is unable to tolerate her diet due to nausea/vomiting. Denies fevers/chills. Objective - Vital Signs/Intake and Output Vital Signs (last 24 hours): Temp Pulse Resp BP Pulse Ox 97.6 F 74 20 125/75 94 L 06/09/18 07:50 06/09/18 07:50 06/09/18 07:50 06/09/18 07:50 06/09/18 07:50 Intake and Output: 06/09/18 06/09/18 06:59 18:59 Intake Total 340 Balance 340 - Medications Medications: Current Medications Amlodipine Besylate (Norvasc) 10 mg PO DAILY [facility] Last Admin: 06/09/18 09:44 Dose: 10 mg Aspirin (Ecotrin) 81 mg PO DAILY [facility] Last Admin: 06/09/18 09:47 Dose: 81 mg Ferrous Sulfate (Feosol) 325 mg PO TID [facility] Last Admin: 06/09/18 14:25 Dose: Not Given Heparin Sodium (Porcine) (Heparin) 5,000 units SC Q12 [facility] Last Admin: 06/09/18 09:44 Dose: 5,000 units Hydralazine HCl (Apresoline) 25 mg PO TID [facility] Last Admin: 06/09/18 14:25 Dose: 25 mg Hydromorphone HCl (Dilaudid) 2 mg IVP Q8H PRN PRN Reason: Pain, severe (8-10) Last Admin: 06/09/18 07:27 Dose: 2 mg Metronidazole 250 mg/ (Miscellaneous) 50 mls @ 100 mls/hr IVPB Q12H [facility]; Protoc ol Last Admin: 06/09/18 08:35 Dose: 100 mls/hr Moxifloxacin HCl (Avelox Iv 400mg/250ml Ns) 400 mg in 250 mls @ 167 mls/hr IVPB Q24H [facility]; Protocol Last Admin: 06/09/18 09:45 Dose: 167 mls/hr Sodium Chloride (Sodium Chloride 0.9%) 1,000 mls @ 60 mls/hr IV .[id number] [facility] Last Admin: 06/09/18 14:23 Dose: 60 mls/hr Insulin Aspart (Novolog) 5 unit SC AC [facility] Last Admin: 06/09/18 12:10 Dose: Not Given Insulin Glargine (Lantus) 25 unit SC HS [facility] Last Admin: 06/08/18 22:17 Dose: 25 units Metoclopramide HCl (Reglan) 10 mg IVP Q6 [facility] Last Admin: 06/09/18 14:23 Dose: 10 mg Metoprolol Succinate (Toprol Xl) 25 mg PO DAILY [facility] Last Admin: 06/09/18 09:44 Dose: 25 mg Ondansetron HCl (Zofran Inj) 4 mg IVP Q6H PRN PRN Reason: Nausea/Vomiting Last Admin: 06/09/18 14:22 Dose: 4 mg Pantoprazole Sodium (Protonix Ec Tab) 40 mg PO DAILY [facility] Last Admin: 06/09/18 09:44 Dose: 40 mg Polyethylene Glycol (Miralax) 17 gm PO BID [facility] Last Admin: 06/09/18 09:44 Dose: 17 gm Sevelamer Carbonate (Renvela) 2.4 gm PO TIDCC [facility] Last Admin: 06/09/18 12:10 Dose: Not Given - Labs Labs: 06/09/18 11:53 06/09/18 11:53 PT 12.1 SECONDS (9.7-12.2) 06/07/18 15:16 INR 1.1 06/07/18 15:16 APTT 33 SECONDS (21-34) 06/07/18 15:16 - Constitutional Appears: Well, No Acute Distress - Head Exam Head Exam: ATRAUMATIC, NORMOCEPHALIC - ENT Exam ENT Exam: Mucous Membranes Moist - Respiratory Exam Respiratory Exam: NORMAL BREATHING PATTERN - Cardiovascular Exam Cardiovascular Exam: RRR - GI/Abdominal Exam GI & Abdominal Exam: Soft. absent: Distended, Guarding, Tenderness - Back Exam Back Exam: CVA tenderness (L) - Neurological Exam Neurological Exam: Alert, Awake, Oriented x3 - Skin Skin Exam: Dry, Warm Assessment and Plan - Assessment and Plan (Free Text) Assessment: 53F with L flank pain Plan: - no plan for surgical intervention - GI on board - recommend urology evaluation as well - d/w Dr. Niko Ling <Juan J Pope B - Last Filed: 06/22/18 08:23> Objective - Vital Signs/Intake and Output Vital Signs (last 24 hours): Temp Pulse Resp BP Pulse Ox 98.2 F 81 20 136/73 96 06/12/18 08:41 06/12/18 08:41 06/12/18 08:41 06/12/18 08:41 06/12/18 08:41 - Labs Labs: 06/09/18 11:53 06/09/18 11:53 PT 12.1 SECONDS (9.7-12.2) 06/07/18 15:16 INR 1.1 06/07/18 15:16 APTT 33 SECONDS (21-34) 06/07/18 15:16 Attending/Attestation - Attestation I have personally seen and examined this patient.: Yes I have fully participated in the care of the patient.: Yes I have reviewed all pertinent clinical information, including history, physical exam and plan: Yes Notes (Text): Pt was seen and examined at bedside Agree with above note and assessment Pt is improving clinically Abdominal pain is minimal Advance diet as tolerated No General surgical intervention required f.u with Urology Plan d.w pt in detail
--- NOTE | 2018-06-09 15:15 | RAD ---
Date of service: 06/09/2018 PROCEDURE: Radiographs of the Lumbar Spine. HISTORY: r/o djd,r/o mets COMPARISON: No prior. FINDINGS: BONES: Minimal levoscoliosis. Vertebral bodies maintained in height. Normal alignment maintained. DISC SPACES: Unremarkable. OTHER FINDINGS: None. IMPRESSION: Minimal levoscoliosis. Otherwise unremarkable.
--- NOTE | 2018-06-09 15:18 | RAD ---
Date of service: 06/09/2018 HISTORY: r/o DJD,r/o mets COMPARISON: No prior. FINDINGS: BONES: Vertebral bodies maintained in height. Normal alignment maintained. Minimal dextroscoliosis. DISC SPACES: Normal. SOFT TISSUES: Normal. OTHER FINDINGS: None. IMPRESSION: Minimal dextroscoliosis. No evidence of fracture or dislocation
--- NOTE | 2018-06-09 19:07 | CP.PCM.PN ---
Subjective - Date & Time of Evaluation Date of Evaluation: 06/09/18 Time of Evaluation: 19:07 - Subjective Subjective: pt is seen and examined, follow up consult is dictated #[id number] for hd in am Objective - Vital Signs/Intake and Output Vital Signs (last 24 hours): Temp Pulse Resp BP Pulse Ox 98.7 F 84 18 116/67 96 06/09/18 16:00 06/09/18 16:00 06/09/18 16:00 06/09/18 16:00 06/09/18 16:00 - Medications Medications: Current Medications Amlodipine Besylate (Norvasc) 10 mg PO DAILY [facility] Last Admin: 06/09/18 09:44 Dose: 10 mg Aspirin (Ecotrin) 81 mg PO DAILY [facility] Last Admin: 06/09/18 09:47 Dose: 81 mg Epoetin Tito (Procrit) 10,000 unit IV ONCE [facility] Ferric Sodium Gluconate Complex (Ferrlecit) 125 mg IVPB DAILY [facility] Stop: 06/11/18 10:01 Ferrous Sulfate (Feosol) 325 mg PO TID [facility] Last Admin: 06/09/18 17:44 Dose: 325 mg Heparin Sodium (Porcine) (Heparin) 5,000 units SC Q12 [facility] Last Admin: 06/09/18 09:44 Dose: 5,000 units Hydralazine HCl (Apresoline) 25 mg PO TID [facility] Last Admin: 06/09/18 17:44 Dose: 25 mg Hydromorphone HCl (Dilaudid) 2 mg IVP Q8H PRN PRN Reason: Pain, severe (8-10) Last Admin: 06/09/18 07:27 Dose: 2 mg Metronidazole 250 mg/ (Miscellaneous) 50 mls @ 100 mls/hr IVPB Q12H [facility]; Protocol Last Admin: 06/09/18 08:35 Dose: 100 mls/hr Moxifloxacin HCl (Avelox Iv 400mg/250ml Ns) 400 mg in 250 mls @ 167 mls/hr IVPB Q24H [facility]; Protocol Last Admin: 06/09/18 09:45 Dose: 167 mls/hr Sodium Chloride (Sodium Chloride 0.9%) 1,000 mls @ 60 mls/hr IV .[id number] [facility] Last Admin: 06/09/18 14:23 Dose: 60 mls/hr Insulin Aspart (Novolog) 5 unit SC AC [facility] Last Admin: 06/09/18 17:44 Dose: Not Given Insulin Glargine (Lantus) 25 unit SC HS [facility] Last Admin: 06/08/18 22:17 Dose: 25 units Metoclopramide HCl (Reglan) 10 mg IVP Q6 [facility] Last Admin: 06/09/18 17:44 Dose: 10 mg Metoprolol Succinate (Toprol Xl) 25 mg PO DAILY [facility] Last Admin: 06/09/18 09:44 Dose: 25 mg Ondansetron HCl (Zofran Inj) 4 mg IVP Q6H PRN PRN Reason: Nausea/Vomiting Last Admin: 06/09/18 14:22 Dose: 4 mg Pantoprazole Sodium (Protonix Ec Tab) 40 mg PO DAILY [facility] Last Admin: 06/09/18 09:44 Dose: 40 mg Paricalcitol (Zemplar) 2 mcg IV ONCE ONE Stop: 06/10/18 10:01 Polyethylene Glycol (Miralax) 17 gm PO BID [facility] Last Admin: 06/09/18 17:43 Dose: 17 gm Sevelamer Carbonate (Renvela) 2.4 gm PO TIDCC [facility] Last Admin: 06/09/18 17:43 Dose: 2.4 gm - Labs Labs: 06/09/18 11:53 06/09/18 11:53 PT 12.1 SECONDS (9.7-12.2) 06/07/18 15:16 INR 1.1 06/07/18 15:16 APTT 33 SECONDS (21-34) 06/07/18 15:16
--- NOTE | 2018-06-09 21:18 | CP.PCM.PN ---
Subjective - Date & Time of Evaluation Date of Evaluation: 06/09/18 Time of Evaluation: 11:15 - Subjective Subjective: clinically same Objective - Vital Signs/Intake and Output Vital Signs (last 24 hours): Temp Pulse Resp BP Pulse Ox 98.7 F 84 18 116/67 96 06/09/18 16:00 06/09/18 16:00 06/09/18 16:00 06/09/18 16:00 06/09/18 16:00 - Medications Medications: Current Medications Amlodipine Besylate (Norvasc) 10 mg PO DAILY [facility] Last Admin: 06/09/18 09:44 Dose: 10 mg Aspirin (Ecotrin) 81 mg PO DAILY [facility] Last Admin: 06/09/18 09:47 Dose: 81 mg Epoetin Tito (Procrit) 10,000 unit IV ONCE ONE Stop: 06/10/18 10:01 Ferric Sodium Gluconate Complex (Ferrlecit) 125 mg IVPB DAILY [facility] Stop: 06/11/18 10:01 Ferrous Sulfate (Feosol) 325 mg PO TID [facility] Last Admin: 06/09/18 17:44 Dose: 325 mg Heparin Sodium (Porcine) (Heparin) 5,000 units SC Q12 [facility] Last Admin: 06/09/18 09:44 Dose: 5,000 units Hydralazine HCl (Apresoline) 25 mg PO TID [facility] Last Admin: 06/09/18 17:44 Dose: 25 mg Hydromorphone HCl (Dilaudid) 2 mg IVP Q8H PRN PRN Reason: Pain, severe (8-10) Last Admin: 06/09/18 07:27 Dose: 2 mg Metronidazole 250 mg/ (Miscellaneous) 50 mls @ 100 mls/hr IVPB Q12H [facility]; Protocol Last Admin: 06/09/18 20:14 Dose: 100 mls/hr Moxifloxacin HCl (Avelox Iv 400mg/250ml Ns) 400 mg in 250 mls @ 167 mls/hr IVPB Q24H [facility]; Protocol Last Admin: 06/09/18 09:45 Dose: 167 mls/hr Sodium Chloride (Sodium Chloride 0.9%) 1,000 mls @ 60 mls/hr IV .[id number] [facility] Last Admin: 06/09/18 14:23 Dose: 60 mls/hr Insulin Aspart (Novolog) 5 unit SC [facility] Last Admin: 06/09/18 17:44 Dose: Not Given Insulin Glargine (Lantus) 25 unit SC HS [facility] Last Admin: 06/08/18 22:17 Dose: 25 units Metoclopramide HCl (Reglan) 10 mg IVP Q6 [facility] Last Admin: 06/09/18 17:44 Dose: 10 mg Metoprolol Succinate (Toprol Xl) 25 mg PO DAILY [facility] Last Admin: 06/09/18 09:44 Dose: 25 mg Ondansetron HCl (Zofran Inj) 4 mg IVP Q6H PRN PRN Reason: Nausea/Vomiting Last Admin: 06/09/18 14:22 Dose: 4 mg Pantoprazole Sodium (Protonix Ec Tab) 40 mg PO DAILY [facility] Last Admin: 06/09/18 09:44 Dose: 40 mg Paricalcitol (Zemplar) 2 mcg IV ONCE ONE Stop: 06/10/18 10:01 Polyethylene Glycol (Miralax) 17 gm PO BID [facility] Last Admin: 06/09/18 17:43 Dose: 17 gm Sevelamer Carbonate (Renvela) 2.4 gm PO TIDCC [facility] Last Admin: 06/09/18 17:43 Dose: 2.4 gm - Labs Labs: 06/09/18 11:53 06/09/18 11:53 PT 12.1 SECONDS (9.7-12.2) 06/07/18 15:16 INR 1.1 06/07/18 15:16 APTT 33 SECONDS (21-34) 06/07/18 15:16
[2018-06-09] MEDS: (Lantus) Insulin Glargine, Recombinant SC SCH (21:48)
[2018-06-10] MEDS: Sodium Chloride 0.9% 1,000 ML IV SCH (07:01)
[2018-06-10] MEDS: metroNIDAZOLE IV 500 mg/100 ml 250 MG in Premixed IV 1 EA IVPB SCH ×2 (08:32→22:42)
[2018-06-10] MEDS: (Novolog) Insulin Aspart, Recombinant 100 u/ml 10 ml vial SC SCH ×3 (08:36→22:45)
[2018-06-10] MEDS ORDERED: Epoetin Alfa 10,000 unit/ml Dialysis IV ONE ×2 (10:00→18:00)
[2018-06-10] MEDS ORDERED: Paricalcitol 2 mcg/ml Inj IV ONE ×2 (10:00→18:00)
[2018-06-10] MEDS ORDERED: Ferric Sodium Gluconat Complex 62.5 mg/5 ml Vial IVPB SCH (10:00)
[2018-06-10] MEDS ORDERED: Bisacodyl 5mg EC Tab PO ONE (10:08)
--- NOTE | 2018-06-10 10:09 | CP.PCM.PN ---
Subjective - Date & Time of Evaluation Date of Evaluation: 06/10/18 Time of Evaluation: 10:05 - Subjective Subjective: Patient is feeling "better" today. Less pain. No BMs yet. Requesting to increase diet. No nausea, vomiting x24hrs. 5pt ROS completed and negative except for above. Objective - Vital Signs/Intake and Output Vital Signs (last 24 hours): Temp Pulse Resp BP Pulse Ox 98.7 F 87 20 163/73 H 99 06/10/18 08:05 06/10/18 08:05 06/10/18 08:05 06/10/18 08:05 06/10/18 08:05 Intake and Output: 06/10/18 06/10/18 06:59 18:59 Intake Total 720 Balance 720 - Medications Medications: Current Medications Amlodipine Besylate (Norvasc) 10 mg PO DAILY [facility] Last Admin: 06/09/18 09:44 Dose: 10 mg Aspirin (Ecotrin) 81 mg PO DAILY [facility] Last Admin: 06/09/18 09:47 Dose: 81 mg Ferric Sodium Gluconate Complex (Ferrlecit) 125 mg IVPB DAILY [facility] Stop: 06/11/18 10:01 Ferrous Sulfate (Feosol) 325 mg PO TID [facility] Last Admin: 06/09/18 17:44 Dose: 325 mg Heparin Sodium (Porcine) (Heparin) 5,000 units SC Q12 [facility] Last Admin: 06/09/18 21:49 Dose: 5,000 units Hydralazine HCl (Apresoline) 25 mg PO TID [facility] Last Admin: 06/09/18 17:44 Dose: 25 mg Hydromorphone HCl (Dilaudid) 2 mg IVP Q8H PRN PRN Reason: Pain, severe (8-10) Last Admin: 06/09/18 07:27 Dose: 2 mg Metronidazole 250 mg/ (Miscellaneous) 50 mls @ 100 mls/hr IVPB Q12H [facility]; Protocol Last Admin: 06/10/18 08:32 Dose: 100 mls/hr Moxifloxacin HCl (Avelox Iv 400mg/250ml Ns) 400 mg in 250 mls @ 167 mls/hr IVPB Q24H [facility]; Protocol Last Admin: 06/09/18 09:45 Dose: 167 mls/hr Sodium Chloride (Sodium Chloride 0.9%) 1,000 mls @ 60 mls/hr IV .[id number] [facility] Last Admin: 06/10/18 07:01 Dose: Not Given Insulin Aspart (Novolog) 5 unit SC AC [facility] Last Admin: 06/10/18 08:36 Dose: Not Given Insulin Glargine (Lantus) 25 unit SC HS [facility] Last Admin: 06/09/18 21:48 Dose: Not Given Metoclopramide HCl (Reglan) 10 mg IVP Q6 [facility] Last Admin: 06/10/18 06:49 Dose: 10 mg Metoprolol Succinate (Toprol Xl) 25 mg PO DAILY [facility] Last Admin: 06/09/18 09:44 Dose: 25 mg Ondansetron HCl (Zofran Inj) 4 mg IVP Q6H PRN PRN Reason: Nausea/Vomiting Last Admin: 06/09/18 14:22 Dose: 4 mg Pantoprazole Sodium (Protonix Ec Tab) 40 mg PO DAILY [facility] Last Admin: 06/09/18 09:44 Dose: 40 mg Polyethylene Glycol (Miralax) 17 gm PO BID [facility] Last Admin: 06/09/18 17:43 Dose: 17 gm Sevelamer Carbonate (Renvela) 2.4 gm PO TIDCC [facility] Last Admin: 06/09/18 17:43 Dose: 2.4 gm - Labs Labs: 06/09/18 11:53 06/09/18 11:53 PT 12.1 SECONDS (9.7-12.2) 06/07/18 15:16 INR 1.1 06/07/18 15:16 APTT 33 SECONDS (21-34) 06/07/18 15:16 - Constitutional Appears: Non-toxic, No Acute Distress - Head Exam Head Exam: ATRAUMATIC, NORMAL INSPECTION - Eye Exam Eye Exam: EOMI, Normal appearance - Respiratory Exam Respiratory Exam: Clear to Ausculation Bilateral, NORMAL BREATHING PATTERN - Cardiovascular Exam Cardiovascular Exam: REGULAR RHYTHM, +S1, +S2 - GI/Abdominal Exam GI & Abdominal Exam: Soft, Normal Bowel Sounds. absent: Tenderness - Extremities Exam Extremities Exam: absent: Normal Inspection, Pedal Edema - Neurological Exam Neurological Exam: Alert, Awake, Oriented x3 - Psychiatric Exam Psychiatric exam: Normal Affect, Normal Mood - Skin Skin Exam: Dry, Normal Color Assessment and Plan - Assessment and Plan (Free Text) Assessment: #Abdominal pain, LLQ/flank/back #CAD s/p CABG #ESRD on HD #T2DM, HTN #h/o esophagitis, h. pylori (treated) #Constipation PLAN: -CT reviewed, no acute abdominal findings however there are non-obstructing renal calculi possible causing the pain -Unlikely diverticulitis, presentations would be atypical. No obvious GI condition present as cause for back pain. -continue pain management per primary. -Continue abx per primary -Continue PPI -No endoscopic procedures planned. -Recommend urologic evaluation, may benefit from flomax, pyridium -Miralax for constipation. Trial of dulcolax. -Renal, diabetic diet. Case discussed with Dr. Pandey, see attestation.
[2018-06-10] MEDS: Moxifloxacin IV 400mg/250ml NS 400 MG/250 ML BAG IVPB SCH (10:47)
[2018-06-10] MEDS: POLYETHYLENE GLYCOL 3350 17 GM/Dose PACKET PO SCH ×2 (11:20→22:45)
[2018-06-10] MEDS: Pantoprazole 40 mg EC Tab PO SCH (11:22)
[2018-06-10] MEDS: Sevelamer Carb 2.4 gm/Packet PO SCH ×3 (11:22→22:46)
[2018-06-10] MEDS: Metoprolol Succinate 25 mg XL Tab PO SCH (11:23)
--- NOTE | 2018-06-10 14:00 | CP.PCM.PN ---
Subjective - Date & Time of Evaluation Date of Evaluation: 06/10/18 Time of Evaluation: 13:59 - Subjective Subjective: pt is seen and examined, follow up consult is dictated #[id number] Objective - Vital Signs/Intake and Output Vital Signs (last 24 hours): Temp Pulse Resp BP Pulse Ox 98.7 F 87 20 163/73 H 99 06/10/18 08:05 06/10/18 08:05 06/10/18 08:05 06/10/18 08:05 06/10/18 08:05 Intake and Output: 06/10/18 06/10/18 06:59 18:59 Intake Total 720 Balance 720 - Medications Medications: Current Medications Amlodipine Besylate (Norvasc) 10 mg PO DAILY [facility] Last Admin: 06/10/18 11:21 Dose: Not Given Aspirin (Ecotrin) 81 mg PO DAILY [facility] Last Admin: 06/10/18 11:19 Dose: Not Given Ferrous Sulfate (Feosol) 325 mg PO TID [facility] Last Admin: 06/10/18 11:20 Dose: Not Given Heparin Sodium (Porcine) (Heparin) 5,000 units SC Q12 [facility] Last Admin: 06/10/18 11:16 Dose: 5,000 units Hydralazine HCl (Apresoline) 25 mg PO TID [facility] Last Admin: 06/10/18 13:38 Dose: Not Given Hydromorphone HCl (Dilaudid) 2 mg IVP Q8H PRN PRN Reason: Pain, severe (8-10) Last Admin: 06/09/18 07:27 Dose: 2 mg Metronidazole 250 mg/ (Miscellaneous) 50 mls @ 100 mls/hr IVPB Q12H [facility]; Protocol Last Admin: 06/10/18 08:32 Dose: 100 mls/hr Moxifloxacin HCl (Avelox Iv 400mg/250ml Ns) 400 mg in 250 mls @ 167 mls/hr IVPB Q24H [facility]; Protocol Last Admin: 06/10/18 10:47 Dose: 167 mls/hr Sodium Chloride (Sodium Chloride 0.9%) 1,000 mls @ 60 mls/hr IV .[id number] [facility] Last Admin: 06/10/18 07:01 Dose: Not Given Ferric Sodium Gluconate Complex 125 mg/ Sodium Chloride 110 mls @ 110 mls/hr IVPB Q24H [facility] Stop: 06/11/18 16:01 Insulin Aspart (Novolog) 5 unit SC AC [facility] Last Admin: 06/10/18 12:23 Dose: Not Given Insulin Glargine (Lantus) 25 unit SC HS [facility] Last Admin: 06/09/18 21:48 Dose: Not Given Metoclopramide HCl (Reglan) 10 mg IVP Q6 [facility] Last Admin: 06/10/18 11:22 Dose: Not Given Metoprolol Succinate (Toprol Xl) 25 mg PO DAILY [facility] Last Admin: 06/10/18 11:23 Dose: Not Given Ondansetron HCl (Zofran Inj) 4 mg IVP Q6H PRN PRN Reason: Nausea/Vomiting Last Admin: 06/09/18 14:22 Dose: 4 mg Pantoprazole Sodium (Protonix Ec Tab) 40 mg PO DAILY [facility] Last Admin: 06/10/18 11:22 Dose: Not Given Polyethylene Glycol (Miralax) 17 gm PO BID [facility] Last Admin: 06/10/18 11:20 Dose: Not Given Sevelamer Carbonate (Renvela) 2.4 gm PO TIDCC [facility] Last Admin: 06/10/18 11:23 Dose: Not Given - Labs Labs: 06/09/18 11:53 06/09/18 11:53 PT 12.1 SECONDS (9.7-12.2) 06/07/18 15:16 INR 1.1 06/07/18 15:16 APTT 33 SECONDS (21-34) 06/07/18 15:16
[2018-06-10] MEDS ORDERED: Ferric Sodium Gluconat Complex 62.5 mg/5 ml Vial ONE (17:58)
[2018-06-10] MEDS: Ferric Sodium Gluconat Complex 125 MG in Sodium Chloride 0.9% 100 ML IVPB SCH (19:17)
[2018-06-10 20:57] VITALS: RESP 20
--- NOTE | 2018-06-10 21:33 | CP.PCM.PN ---
Subjective - Date & Time of Evaluation Date of Evaluation: 06/10/18 Time of Evaluation: 11:45 - Subjective Subjective: clinically same Objective - Vital Signs/Intake and Output Vital Signs (last 24 hours): Temp Pulse Resp BP Pulse Ox 97.9 F 96 H 20 167/82 H 98 06/10/18 20:56 06/10/18 20:56 06/10/18 20:56 06/10/18 20:56 06/10/18 20:56 - Medications Medications: Current Medications Amlodipine Besylate (Norvasc) 10 mg PO DAILY [facility] Last Admin: 06/10/18 11:21 Dose: Not Given Aspirin (Ecotrin) 81 mg PO DAILY [facility] Last Admin: 06/10/18 11:19 Dose: Not Given Ferrous Sulfate (Feosol) 325 mg PO TID [facility] Last Admin: 06/10/18 15:58 Dose: Not Given Heparin Sodium (Porcine) (Heparin) 5,000 units SC Q12 [facility] Last Admin: 06/10/18 11:16 Dose: 5,000 units Hydralazine HCl (Apresoline) 25 mg PO TID [facility] Last Admin: 06/10/18 13:38 Dose: Not Given Hydromorphone HCl (Dilaudid) 2 mg IVP Q8H PRN PRN Reason: Pain, severe (8-10) Last Admin: 06/09/18 07:27 Dose: 2 mg Metronidazole 250 mg/ (Miscellaneous) 50 mls @ 100 mls/hr IVPB Q12H [facility]; Protocol Last Admin: 06/10/18 08:32 Dose: 100 mls/hr Moxifloxacin HCl (Avelox Iv 400mg/250ml Ns) 400 mg in 250 mls @ 167 mls/hr IVPB Q24H [facility]; Protocol Last Admin: 06/10/18 10:47 Dose: 167 mls/hr Sodium Chloride (Sodium Chloride 0.9%) 1,000 mls @ 60 mls/hr IV .[id number] [facility] Last Admin: 06/10/18 07:01 Dose: Not Given Ferric Sodium Gluconate Complex 125 mg/ Sodium Chloride 110 mls @ 110 mls/hr IVPB Q24H [facility] Stop: 06/11/18 16:01 Last Admin: 06/10/18 19:17 Dose: 110 mls/hr Insulin Aspart (Novolog) 5 unit SC AC [facility] Last Admin: 06/10/18 12:23 Dose: Not Given Insulin Glargine (Lantus) 25 unit SC HS [facility] Last Admin: 06/09/18 21:48 Dose: Not Given Metoclopramide HCl (Reglan) 10 mg IVP Q6 [facility] Last Admin: 06/10/18 11:22 Dose: Not Given Metoprolol Succinate (Toprol Xl) 25 mg PO DAILY [facility] Last Admin: 06/10/18 11:23 Dose: Not Given Ondansetron HCl (Zofran Inj) 4 mg IVP Q6H PRN PRN Reason: Nausea/Vomiting Last Admin: 06/09/18 14:22 Dose: 4 mg Pantoprazole Sodium (Protonix Ec Tab) 40 mg PO DAILY [facility] Last Admin: 06/10/18 11:22 Dose: Not Given Polyethylene Glycol (Miralax) 17 gm PO BID [facility] Last Admin: 06/10/18 11:20 Dose: Not Given Sevelamer Carbonate (Renvela) 2.4 gm PO TIDCC [facility] Last Admin: 06/10/18 11:23 Dose: Not Given - Labs Labs: 06/09/18 11:53 06/09/18 11:53 PT 12.1 SECONDS (9.7-12.2) 06/07/18 15:16 INR 1.1 06/07/18 15:16 APTT 33 SECONDS (21-34) 06/07/18 15:16
[2018-06-10] MEDS: (Lantus) Insulin Glargine, Recombinant SC SCH (22:44)
--- NOTE | 2018-06-11 03:03 | PN ---
DATE: 06/10/2018 FOLLOWUP RENAL CONSULTATION LOCATION: The patient is located in room 663, bed A. REQUESTED BY: Josue Marroquin MD REASON FOR FOLLOWUP: End-stage renal disease, continuation of hemodialysis. SUBJECTIVE: Mrs. Orozco is a 53-year-old middle-aged [place] female with a past medical history significant for longstanding hypertension, diabetes, diabetic retinopathy, end-stage renal disease, CHF, coronary artery disease, status post CABG who was admitted with chief complaints of nausea, vomiting, abdominal pain and back pain. The patient was started on IV antibiotics. The patient is feeling much better, not in acute distress. Able to tolerate p.o. intake. No abdominal pain. No shortness of breath today. PHYSICAL EXAMINATION: VITAL SIGNS: As follows: Blood pressure this afternoon 122/72, pulse 81, respiration 20, temperature 97.7, saturation 95%. Height 5 feet 5 inches. Weight is 126 pounds. GENERAL: Mrs. Orozco is a 53-year-old middle-aged [place] female, moderately built, moderately nourished, not in acute distress. HEENT: Pupils normal and normal to light and accommodation. Conjunctivae pink. Sclerae anicteric. Tongue is moist. Trachea is midline. LUNGS: Symmetric on both sides. Bilateral breath sounds present. Clear to auscultation. CARDIOVASCULAR SYSTEM: [place] at the fifth intercostal space, midclavicular line. S1 and S2 audible. No murmur or gallop. ABDOMEN: Normal in appearance. Soft, tympanitic. No guarding. No rigidity. No hepatosplenomegaly. CENTRAL NERVOUS SYSTEM: The patient is alert, awake, oriented x3. Nonfocal neuro examination. Cranial nerves II through XII grossly intact. Sensory and motor system is within normal limits. EXTREMITIES: No cyanosis, no clubbing, no edema. CURRENT MEDICATIONS: Include as follows: Hydralazine 25 mg p.o. t.i.d., moxifloxacin (Avelox) 400 mg every 24 hours, Dilaudid 2 mg IV every 8 hours, aspirin 81 mg daily, Feosol 325 mg p.o. t.i.d., Ferrlecit 125 mg one dose, subcu heparin 5000 units every 12 hours, Lantus 25 units subcu at bedtime, Flagyl 250 mg IV piggyback every 12 hours, MiraLax, Norvasc 10 mg p.o. daily, Protonix 40 mg p.o. daily, Reglan 10 mg IV every 6 hours p.r.n., Renvela 2.4 g p.o. t.i.d., IV fluids normal saline 60 mL per hour, metoprolol 25 mg p.o. daily, Zofran 4 mg IV every 6 hours p.r.n. LABORATORY DATA: Hepatitis B surface antigen negative. Accu-Cheks, 85, 86, 206. ASSESSMENT AND PLAN: In summary, Mrs. Orozco is a 53-year-old middle-aged female with hypertension, diabetes, coronary artery disease, status post coronary artery bypass graft, end-stage renal disease, congestive heart failure who was admitted with abdominal pain, nausea, vomiting and back pain and on intravenous antibiotics. Her urine culture is positive gram-positive cocci. 1. End-stage renal disease. Continue hemodialysis two times a week on Tuesday and Tuesday. We will try to ultrafiltrate as much as the patient can tolerate. Ultrafiltration goal is about 1 L today. 2. Hypertension. Blood pressure is stable. Continue her current medications, hydralazine, metoprolol and Norvasc. 3. Diabetes. 4. Abdominal pain, rule out gastroenteritis, rule out diabetic gastroparesis. 5. Urinary tract infection. Continue antibiotics as per Infectious Disease recommendations. We will follow with you. Thank you for allowing me to participate in your patient's care. Vasiliy Emery MD
[2018-06-11] MEDS: Sodium Chloride 0.9% 1,000 ML IV SCH (07:32)
[2018-06-11] MEDS: (Novolog) Insulin Aspart, Recombinant 100 u/ml 10 ml vial SC SCH ×3 (08:05→18:52)
[2018-06-11 08:27] VITALS: O2SAT 96
[2018-06-11] MEDS: metroNIDAZOLE IV 500 mg/100 ml 250 MG in Premixed IV 1 EA IVPB SCH (08:40)
[2018-06-11] MEDS: Moxifloxacin IV 400mg/250ml NS 400 MG/250 ML BAG IVPB SCH (09:42)
[2018-06-11] MEDS: Pantoprazole 40 mg EC Tab PO SCH (09:43)
[2018-06-11] MEDS: Metoprolol Succinate 25 mg XL Tab PO SCH (09:43)
[2018-06-11] MEDS: POLYETHYLENE GLYCOL 3350 17 GM/Dose PACKET PO SCH ×2 (09:44→18:51)
[2018-06-11] MEDS: Sevelamer Carb 2.4 gm/Packet PO SCH ×3 (09:49→20:24)
--- NOTE | 2018-06-11 11:48 | CP.PCM.PN ---
<Elton Quintero - Last Filed: 06/11/18 11:59> Subjective - Date & Time of Evaluation Date of Evaluation: 06/11/18 Time of Evaluation: 11:45 - Subjective Subjective: GI Fellow PGY4, progress note. Patient is feeling much better, back pain is almost resolved. She denies n/v. She had small BM yesterday. 5pt ROS completed and negative except for above. Objective - Vital Signs/Intake and Output Vital Signs (last 24 hours): Temp Pulse Resp BP Pulse Ox 98.1 F 87 20 160/76 H 96 06/11/18 07:00 06/11/18 07:00 06/11/18 07:00 06/11/18 07:00 06/11/18 07:00 Intake and Output: 06/11/18 06/11/18 06:59 18:59 Intake Total 540 Balance 540 - Medications Medications: Current Medications Amlodipine Besylate (Norvasc) 10 mg PO DAILY [facility] Last Admin: 06/11/18 09:44 Dose: 10 mg Aspirin (Ecotrin) 81 mg PO DAILY [facility] Last Admin: 06/11/18 09:43 Dose: 81 mg Ferrous Sulfate (Feosol) 325 mg PO TID [facility] Last Admin: 06/11/18 09:44 Dose: 325 mg Hydralazine HCl (Apresoline) 25 mg PO TID [facility] Last Admin: 06/11/18 09:43 Dose: 25 mg Hydromorphone HCl (Dilaudid) 2 mg IVP Q8H PRN PRN Reason: Pain, severe (8-10) Last Admin: 06/09/18 07:27 Dose: 2 mg Sodium Chloride (Sodium Chloride 0.9%) 1,000 mls @ 60 mls/hr IV .[id number] [facility] Last Admin: 06/11/18 07:32 Dose: Not Given Ferric Sodium Gluconate Complex 125 mg/ Sodium Chloride 110 mls @ 110 mls/hr IVPB Q24H [facility] Stop: 06/11/18 16:01 Last Admin: 06/10/18 19:17 Dose: 110 mls/hr Insulin Aspart (Novolog) 5 unit SC AC [facility] Last Admin: 06/11/18 08:05 Dose: Not Given Insulin Glargine (Lantus) 25 unit SC HS [facility] Last Admin: 06/10/18 22:44 Dose: 25 units Metoclopramide HCl (Reglan) 10 mg IVP Q6 [facility] Last Admin: 06/11/18 05:37 Dose: 10 mg Metoprolol Succinate (Toprol Xl) 25 mg PO DAILY [facility] Last Admin: 06/11/18 09:43 Dose: 25 mg Ondansetron HCl (Zofran Inj) 4 mg IVP Q6H PRN PRN Reason: Nausea/Vomiting Last Admin: 06/09/18 14:22 Dose: 4 mg Pantoprazole Sodium (Protonix Ec Tab) 40 mg PO DAILY [facility] Last Admin: 06/11/18 09:43 Dose: 40 mg Polyethylene Glycol (Miralax) 17 gm PO BID [facility] Last Admin: 06/11/18 09:44 Dose: 17 gm Sevelamer Carbonate (Renvela) 2.4 gm PO TIDCC [facility] Last Admin: 06/11/18 09:49 Dose: Not Given - Labs Labs: 06/09/18 11:53 06/09/18 11:53 PT 12.1 SECONDS (9.7-12.2) 06/07/18 15:16 INR 1.1 06/07/18 15:16 APTT 33 SECONDS (21-34) 06/07/18 15:16 - Constitutional Appears: Well, Non-toxic - Head Exam Head Exam: ATRAUMATIC, NORMAL INSPECTION - Respiratory Exam Respiratory Exam: Clear to Ausculation Bilateral, NORMAL BREATHING PATTERN - Cardiovascular Exam Cardiovascular Exam: REGULAR RHYTHM, +S1, +S2 - GI/Abdominal Exam GI & Abdominal Exam: Soft, Normal Bowel Sounds. absent: Tenderness - Neurological Exam Neurological Exam: Alert, Awake, Oriented x3 - Psychiatric Exam Psychiatric exam: Normal Affect, Normal Mood - Skin Skin Exam: Normal Color, Warm Assessment and Plan - Assessment and Plan (Free Text) Assessment: #Abdominal pain, LLQ/flank/back - significantly improved. #CAD s/p CABG #ESRD on HD #T2DM, HTN #h/o esophagitis, h. pylori (treated) #Constipation PLAN: -CT reviewed, no acute abdominal findings however there are non-obstructing renal calculi possible causing the pain -Unlikely diverticulitis, presentations would be atypical. No obvious GI condition present as cause for back pain. -continue pain management per primary. -Continue abx per primary -Continue PPI -No endoscopic procedures planned. -Recommend urologic evaluation, may benefit from flomax, pyridium -Miralax for constipation. -Renal, diabetic diet. -Will sign-off. Please reconsult as needed. Case discussed with Dr. Pandey, see attestation. <Feliberto Pandey - Last Filed: 06/11/18 21:18> Objective - Vital Signs/Intake and Output Vital Signs (last 24 hours): Temp Pulse Resp BP Pulse Ox 97.4 F L 79 20 128/77 96 06/11/18 15:00 06/11/18 15:00 06/11/18 15:00 06/11/18 15:00 06/11/18 15:00 Intake and Output: 06/11/18 06/12/18 18:59 06:59 Intake Total 1340 Balance 1340 - Medications Medications: Current Medications Amlodipine Besylate (Norvasc) 10 mg PO DAILY [facility] Last Admin: 06/11/18 09:44 Dose: 10 mg Aspirin (Ecotrin) 81 mg PO DAILY [facility] Last Admin: 06/11/18 09:43 Dose: 81 mg Ferrous Sulfate (Feosol) 325 mg PO TID [facility] Last Admin: 06/11/18 18:51 Dose: 325 mg Hydralazine HCl (Apresoline) 25 mg PO TID [facility] Last Admin: 06/11/18 18:51 Dose: 25 mg Hydromorphone HCl (Dilaudid) 2 mg IVP Q8H PRN PRN Reason: Pain, severe (8-10) Last Admin: 06/09/18 07:27 Dose: 2 mg Sodium Chloride (Sodium Chloride 0.9%) 1,000 mls @ 60 mls/hr IV .[id number] [facility] Last Admin: 06/11/18 07:32 Dose: Not Given Insulin Aspart (Novolog) 5 unit SC AC [facility] Last Admin: 06/11/18 18:52 Dose: 5 units Insulin Glargine (Lantus) 25 unit SC HS [facility] Last Admin: 06/10/18 22:44 Dose: 25 units Metoclopramide HCl (Reglan) 10 mg IVP Q6 [facility] Last Admin: 06/11/18 18:51 Dose: 10 mg Metoprolol Succinate (Toprol Xl) 25 mg PO DAILY [facility] Last Admin: 06/11/18 09:43 Dose: 25 mg Ondansetron HCl (Zofran Inj) 4 mg IVP Q6H PRN PRN Reason: Nausea/Vomiting Last Admin: 06/09/18 14:22 Dose: 4 mg Pantoprazole Sodium (Protonix Ec Tab) 40 mg PO DAILY [facility] Last Admin: 06/11/18 09:43 Dose: 40 mg Polyethylene Glycol (Miralax) 17 gm PO BID [facility] Last Admin: 06/11/18 18:51 Dose: 17 gm Sevelamer Carbonate (Renvela) 2.4 gm PO TIDCC [facility] Last Admin: 06/11/18 20:24 Dose: Not Given - Labs Labs: 06/09/18 11:53 06/09/18 11:53 PT 12.1 SECONDS (9.7-12.2) 06/07/18 15:16 INR 1.1 06/07/18 15:16 APTT 33 SECONDS (21-34) 06/07/18 15:16 Attending/Attestation - Attestation I have personally seen and examined this patient.: Yes I have fully participated in the care of the patient.: Yes I have reviewed all pertinent clinical information, including history, physical exam and plan: Yes Notes (Text): 06/11/18 21:13 The pt was seen and examined this am. Chart reviewed. The findings, assessment and the management, as documented above, were discussed with Dr Quintero.
--- NOTE | 2018-06-11 16:26 | CP.PCM.PN ---
Subjective - Date & Time of Evaluation Date of Evaluation: 06/11/18 Time of Evaluation: 16:26 - Subjective Subjective: pt is seen and examined, follow up consult is dictated #[id number] Objective - Vital Signs/Intake and Output Vital Signs (last 24 hours): Temp Pulse Resp BP Pulse Ox 97.4 F L 79 20 128/77 96 06/11/18 15:00 06/11/18 15:00 06/11/18 15:00 06/11/18 15:00 06/11/18 15:00 Intake and Output: 06/11/18 06/11/18 06:59 18:59 Intake Total 1340 Balance 1340 - Medications Medications: Current Medications Amlodipine Besylate (Norvasc) 10 mg PO DAILY [facility] Last Admin: 06/11/18 09:44 Dose: 10 mg Aspirin (Ecotrin) 81 mg PO DAILY [facility] Last Admin: 06/11/18 09:43 Dose: 81 mg Ferrous Sulfate (Feosol) 325 mg PO TID [facility] Last Admin: 06/11/18 13:46 Dose: 325 mg Hydralazine HCl (Apresoline) 25 mg PO TID [facility] Last Admin: 06/11/18 13:44 Dose: 25 mg Hydromorphone HCl (Dilaudid) 2 mg IVP Q8H PRN PRN Reason: Pain, severe (8-10) Last Admin: 06/09/18 07:27 Dose: 2 mg Sodium Chloride (Sodium Chloride 0.9%) 1,000 mls @ 60 mls/hr IV .[id number] [facility] Last Admin: 06/11/18 07:32 Dose: Not Given Insulin Aspart (Novolog) 5 unit SC AC [facility] Last Admin: 06/11/18 12:10 Dose: Not Given Insulin Glargine (Lantus) 25 unit SC HS [facility] Last Admin: 06/10/18 22:44 Dose: 25 units Metoclopramide HCl (Reglan) 10 mg IVP Q6 [facility] Last Admin: 06/11/18 12:11 Dose: Not Given Metoprolol Succinate (Toprol Xl) 25 mg PO DAILY [facility] Last Admin: 06/11/18 09:43 Dose: 25 mg Ondansetron HCl (Zofran Inj) 4 mg IVP Q6H PRN PRN Reason: Nausea/Vomiting Last Admin: 06/09/18 14:22 Dose: 4 mg Pantoprazole Sodium (Protonix Ec Tab) 40 mg PO DAILY [facility] Last Admin: 06/11/18 09:43 Dose: 40 mg Polyethylene Glycol (Miralax) 17 gm PO BID [facility] Last Admin: 06/11/18 09:44 Dose: 17 gm Sevelamer Carbonate (Renvela) 2.4 gm PO TIDCC [facility] Last Admin: 06/11/18 12:11 Dose: Not Given - Labs Labs: 06/09/18 11:53 06/09/18 11:53 PT 12.1 SECONDS (9.7-12.2) 06/07/18 15:16 INR 1.1 06/07/18 15:16 APTT 33 SECONDS (21-34) 06/07/18 15:16
[2018-06-11] MEDS: Ferric Sodium Gluconat Complex 125 MG in Sodium Chloride 0.9% 100 ML IVPB SCH (20:24)
--- NOTE | 2018-06-11 20:44 | CP.PCM.PN ---
Subjective - Date & Time of Evaluation Date of Evaluation: 06/11/18 Time of Evaluation: 10:30 - Subjective Subjective: clinically same Objective - Vital Signs/Intake and Output Vital Signs (last 24 hours): Temp Pulse Resp BP Pulse Ox 97.4 F L 79 20 128/77 96 06/11/18 15:00 06/11/18 15:00 06/11/18 15:00 06/11/18 15:00 06/11/18 15:00 Intake and Output: 06/11/18 06/12/18 18:59 06:59 Intake Total 1340 Balance 1340 - Medications Medications: Current Medications Amlodipine Besylate (Norvasc) 10 mg PO DAILY [facility] Last Admin: 06/11/18 09:44 Dose: 10 mg Aspirin (Ecotrin) 81 mg PO DAILY [facility] Last Admin: 06/11/18 09:43 Dose: 81 mg Ferrous Sulfate (Feosol) 325 mg PO TID [facility] Last Admin: 06/11/18 18:51 Dose: 325 mg Hydralazine HCl (Apresoline) 25 mg PO TID [facility] Last Admin: 06/11/18 18:51 Dose: 25 mg Hydromorphone HCl (Dilaudid) 2 mg IVP Q8H PRN PRN Reason: Pain, severe (8-10) Last Admin: 06/09/18 07:27 Dose: 2 mg Sodium Chloride (Sodium Chloride 0.9%) 1,000 mls @ 60 mls/hr IV .[id number] [facility] Last Admin: 06/11/18 07:32 Dose: Not Given Insulin Aspart (Novolog) 5 unit SC AC [facility] Last Admin: 06/11/18 18:52 Dose: 5 units Insulin Glargine (Lantus) 25 unit SC HS [facility] Last Admin: 06/10/18 22:44 Dose: 25 units Metoclopramide HCl (Reglan) 10 mg IVP Q6 [facility] Last Admin: 06/11/18 18:51 Dose: 10 mg Metoprolol Succinate (Toprol Xl) 25 mg PO DAILY [facility] Last Admin: 06/11/18 09:43 Dose: 25 mg Ondansetron HCl (Zofran Inj) 4 mg IVP Q6H PRN PRN Reason: Nausea/Vomiting Last Admin: 06/09/18 14:22 Dose: 4 mg Pantoprazole Sodium (Protonix Ec Tab) 40 mg PO DAILY [facility] Last Admin: 06/11/18 09:43 Dose: 40 mg Polyethylene Glycol (Miralax) 17 gm PO BID [facility] Last Admin: 06/11/18 18:51 Dose: 17 gm Sevelamer Carbonate (Renvela) 2.4 gm PO TIDCC [facility] Last Admin: 06/11/18 20:24 Dose: Not Given - Labs Labs: 06/09/18 11:53 06/09/18 11:53 PT 12.1 SECONDS (9.7-12.2) 06/07/18 15:16 INR 1.1 06/07/18 15:16 APTT 33 SECONDS (21-34) 06/07/18 15:16
[2018-06-11] MEDS: (Lantus) Insulin Glargine, Recombinant SC SCH (22:15)
--- NOTE | 2018-06-12 01:41 | PN ---
DATE: 06/11/2018 FOLLOWUP RENAL CONSULTATION LOCATION: The patient is located in room 663, bed A. REQUESTED BY: Josue Marroquin MD REASON FOR FOLLOWUP: End-stage renal disease, continuation of hemodialysis. HISTORY OF PRESENT ILLNESS: Mrs. Orozco is a 53-year-old middle-aged [place] female with a past medical history significant for longstanding hypertension, diabetes, CHF, coronary artery disease, hyperlipidemia, status post CABG, diabetic retinopathy with a poor vision, end-stage renal disease, on hemodialysis two times a week, Tuesday and Tuesday, who was admitted with chief complaints of nausea, vomiting, abdominal discomfort, and back pain. The patient was also found to have UTI and on IV antibiotics. The patient is feeling much better, tolerating diet. No complaints today. PHYSICAL EXAMINATION: VITAL SIGNS: As follows: Blood pressure 128/77, pulse 79, respirations 20, temperature 97.4, saturation 96%. Height 5 feet 5 inches and weight is 126 pounds. GENERAL: Mrs. Oorzco is a 53-year-old middle-aged female, moderately built, moderately nourished, not in acute distress. HEENT: Pupils normal and reactive to light and accommodation. Conjunctivae pink. Sclerae anicteric. Tongue is moist. Trachea is midline. LUNGS: Symmetric on both sides. Bilateral breath sounds present. Occasional basal crackles present. CARDIOVASCULAR SYSTEM: [place] at the fifth intercostal space midclavicular line. S1, S2 audible. No murmur or gallop. ABDOMEN: Normal in appearance. Soft, tympanitic. No guarding. No rigidity. No hepatosplenomegaly. CENTRAL NERVOUS SYSTEM: The patient is alert, awake, oriented x3. Nonfocal neuro examination. Cranial nerves II through XII grossly intact. Sensory and motor system is within normal limits. EXTREMITIES: No cyanosis, no clubbing, no edema. CURRENT MEDICATIONS: Include as follows: Hydralazine 25 mg p.o. t.i.d., Dilaudid 2 mg IV every 8 hours p.r.n., aspirin 81 mg daily, Feosol 325 mg p.o. t.i.d., Lantus 25 units subcu at bedtime, MiraLax, Norvasc 10 mg daily, Protonix 40 mg p.o. daily, Reglan 10 mg IV every 6 hours, Renvela 2.4 mg p.o. t.i.d., IV fluids normal saline at 60 mL/hour and Toprol XL 25 mg p.o. daily, Zofran 4 mg IV every 6 hours p.r.n. LABORATORY DATA: No new labs are available for today. As of 06/10/2018, hepatitis B surface antigen negative. Accu-Cheks 70 and 104. Urine culture is positive for gram positive cocci, less 10,000 colony forming units per milliliter. IMPRESSION AND PLAN: In summary, Mrs. Orozco is a 53-year-old middle-aged female with hypertension, diabetes, hyperlipidemia, coronary artery disease, diabetic retinopathy, poor vision, status post coronary artery bypass grafting, peripheral vascular disease, congestive heart failure, end-stage renal disease who was admitted with nausea, vomiting, abdominal pain, and back pain. 1. End-stage renal disease. Continue hemodialysis two times a week, Tuesday and Tuesday. 2. Hypertension. Blood pressure is stable. Continue her current medications hydralazine, Norvasc. 3. Diabetes. 4. Nausea, vomiting, abdominal pain, rule out gastroenteritis. The patient is now feeling much better. The patient is stable from the renal standpoint for possible discharge. Thank you for allowing me to participate in your patient's care. Vasiliy Emery MD
[2018-06-12 03:07] VITALS: PULSE 81
[2018-06-12] MEDS: Sodium Chloride 0.9% 1,000 ML IV SCH (08:11)
[2018-06-12] MEDS: Sevelamer Carb 2.4 gm/Packet PO SCH ×3 (08:12→16:08)
[2018-06-12] MEDS: (Novolog) Insulin Aspart, Recombinant 100 u/ml 10 ml vial SC SCH ×2 (08:12→12:31)
[2018-06-12 08:42] VITALS: BP 136/73; TEMP 98.2
[2018-06-12] MEDS: POLYETHYLENE GLYCOL 3350 17 GM/Dose PACKET PO SCH (09:15)
[2018-06-12] MEDS: Pantoprazole 40 mg EC Tab PO SCH (09:16)
[2018-06-12] MEDS: Metoprolol Succinate 25 mg XL Tab PO SCH (09:16)
--- NOTE | 2018-06-12 09:30 | PN ---
DATE: 06/09/2018 FOLLOW-UP RENAL CONSULTATION LOCATION: The patient is located in room 663, bed A. REQUESTED BY: Josue Marroquin MD REASON FOR FOLLOWUP: End-stage renal disease, for continuation of the hemodialysis. HISTORY OF PRESENT ILLNESS: The patient is a 53-year-old middle-aged [place] female with a past medical history significant for longstanding hypertension, diabetes, proteinuria, diabetic retinopathy, coronary artery disease, CHF, peripheral vascular disease with chronic back pain, who was admitted with the chief complaints of nausea, vomiting, abdominal discomfort for about 2-3 days prior to the admission and also decreased p.o. intake and back pain in the thoracic and lumbar region. Denies any headache or dizziness. Denies any chest pain or palpitation. Denies any fever, cough, or shortness of breath. Denies any dysuria or frequency. Denies any edema of the legs. PHYSICAL EXAMINATION: As follows: VITAL SIGNS: Blood pressure 116/67, pulse 84, respirations 18, temperature 98.7, and saturation 96%. Height 5 feet 5 inches, and weight is 120 pounds. GENERAL: The patient is a 53-year-old middle-aged [place] female, moderately built, moderately nourished, not in acute distress. HEENT: Pupils normal, reactive to light and accommodation. Conjunctivae pink. Sclerae anicteric and poor vision. Tongue is moist, and trachea is midline. Lungs: Symmetric on both sides. Bilateral breath sounds present. No crackles. CARDIOVASCULAR SYSTEM: [place] at the fifth intercostal space and midclavicular line. S1, S2 audible. No murmur or gallop. ABDOMEN: Normal in appearance. Soft, tympanic. No guarding. No rigidity. No hepatosplenomegaly. CENTRAL NERVOUS SYSTEM: The patient is alert, awake, oriented x3. Nonfocal neuro examination. Cranial nerves II through XII grossly intact. Sensory and motor system is within normal limits. EXTREMITIES: No cyanosis, no clubbing, no edema. CURRENT MEDICATIONS: Include as follows: Hydralazine 25 mg p.o. t.i.d., Avelox 400 mg IV every 24 hours, and 2 mg IV every 8 hours, Ecotrin 81 mg daily, Feosol 325 mg p.o. t.i.d., Ferrlecit 125 mg IV daily, subcu heparin 5000 every 12 hours, Lantus 25 units subcu at bedtime, Flagyl 250 mg IV piggyback every 12 hours, MiraLax, Norvasc 10 mg daily, NovoLog, Procrit 10,000 units three times a week, x1 dose tomorrow with dialysis, Protonix 40 mg p.o. daily, Reglan 10 mg IV every 6 hours, Renvela 2.4 g p.o. t.i.d., IV fluids normal saline at 60 mL per hour, Toprol-XL 25 mg p.o. daily, Zemplar 2 mcg with hemodialysis, and Zofran 4 mg IV every 6 hours p.r.n. LABORATORY DATA: Include as follows: As of 06/09/2018, WBC 12.2, hemoglobin 9.8, hematocrit is 30.2, MCV is 79, platelets 404. Sodium 138, potassium 4.6, chloride 109, CO 24, BUN 26, creatinine 4.2, glucose 89, calcium 8.1, phosphorus 6.3, magnesium 2.1. Total bili 0.3, AST 15, ALT 11, alkaline phosphatase 86, total protein 5.8, albumin is 2.7. Urine, yellow, clear, and pH 7, specific gravity 1.021, protein 3+, glucose 3+, ketones trace, blood negative, nitrites negative, bilirubin negative, urobilinogen normal, leukocyte esterase negative, wbc 3, rbc 2, bacteria rare, hyaline casts 3 to 5. X-ray of the thoracic spine, minimal dextroscoliosis, no evidence of fracture or dislocation. Lumbar spine x-ray, minimal levoscoliosis, otherwise unremarkable. ASSESSMENT AND PLAN: In summary, the patient is a 53-year-old middle-aged female with hypertension, diabetes, coronary artery disease, status post coronary artery bypass grafting, peripheral vascular disease, end-stage renal disease on hemodialysis two times a week, was admitted with nausea, vomiting, abdominal pain, and increased WBC. 1. End-stage renal disease. Continue hemodialysis two times a week; Tuesday and Tuesday. 2. Hypertension. Blood pressure is stable. Hold blood pressure medicine for systolic blood pressure less than 130. Continue gentle intravenous hydration. Continue intravenous antibiotics as per Infectious Disease recommendations. We will follow with you. Thank you for allowing me to participate in your patient's care. Vasiliy Emery MD
--- NOTE | 2018-06-12 10:51 | CP.PCM.PN ---
Subjective - Date & Time of Evaluation Date of Evaluation: 06/12/18 Time of Evaluation: 10:51 - Subjective Subjective: pt is seen and examined, follow up consult is dictated #[id number] Objective - Vital Signs/Intake and Output Vital Signs (last 24 hours): Temp Pulse Resp BP Pulse Ox 98.2 F 81 20 136/73 96 06/12/18 08:41 06/12/18 08:41 06/12/18 08:41 06/12/18 08:41 06/12/18 08:41 - Medications Medications: Current Medications Amlodipine Besylate (Norvasc) 10 mg PO DAILY [facility] Last Admin: 06/12/18 09:15 Dose: 10 mg Aspirin (Ecotrin) 81 mg PO DAILY [facility] Last Admin: 06/12/18 09:15 Dose: 81 mg Ferrous Sulfate (Feosol) 325 mg PO TID [facility] Last Admin: 06/12/18 09:35 Dose: 325 mg Hydralazine HCl (Apresoline) 25 mg PO TID [facility] Last Admin: 06/12/18 09:16 Dose: 25 mg Sodium Chloride (Sodium Chloride 0.9%) 1,000 mls @ 60 mls/hr IV .[id number] [facility] Last Admin: 06/12/18 08:11 Dose: Not Given Insulin Aspart (Novolog) 5 unit SC AC [facility] Last Admin: 06/12/18 08:12 Dose: 5 units Insulin Glargine (Lantus) 25 unit SC HS [facility] Last Admin: 06/11/18 22:15 Dose: 25 units Metoclopramide HCl (Reglan) 10 mg IVP Q6 [facility] Last Admin: 06/12/18 06:30 Dose: Not Given Metoprolol Succinate (Toprol Xl) 25 mg PO DAILY [facility] Last Admin: 06/12/18 09:16 Dose: 25 mg Ondansetron HCl (Zofran Inj) 4 mg IVP Q6H PRN PRN Reason: Nausea/Vomiting Last Admin: 06/09/18 14:22 Dose: 4 mg Pantoprazole Sodium (Protonix Ec Tab) 40 mg PO DAILY [facility] Last Admin: 06/12/18 09:16 Dose: 40 mg Polyethylene Glycol (Miralax) 17 gm PO BID [facility] Last Admin: 06/12/18 09:15 Dose: Not Given Sevelamer Carbonate (Renvela) 2.4 gm PO TIDCC [facility] Last Admin: 06/12/18 08:12 Dose: Not Given - Labs Labs: 06/09/18 11:53 06/09/18 11:53 PT 12.1 SECONDS (9.7-12.2) 06/07/18 15:16 INR 1.1 06/07/18 15:16 APTT 33 SECONDS (21-34) 06/07/18 15:16
--- NOTE | 2018-06-12 14:43 | CARD ---
APPROVED REPORT Date of service: 06/07/2018 EKG Measurement Heart [id number] <Conclusion> Normal sinus rhythm ST & T wave abnormality, consider inferolateral ischemia Abnormal ECG
--- NOTE | 2018-06-12 16:18 | CP.PCM.PN ---
Subjective - Date & Time of Evaluation Date of Evaluation: 06/12/18 Time of Evaluation: 16:18 - Subjective Subjective: PATIENT SEEN AND EXAMINED AT THE BEDSIDE Objective - Vital Signs/Intake and Output Vital Signs (last 24 hours): Temp Pulse Resp BP Pulse Ox 98.2 F 81 20 136/73 96 06/12/18 08:41 06/12/18 08:41 06/12/18 08:41 06/12/18 08:41 06/12/18 08:41 Intake and Output: 06/12/18 06/12/18 06:59 18:59 Intake Total 350 Balance 350 - Medications Medications: Current Medications Amlodipine Besylate (Norvasc) 10 mg PO DAILY [facility] Last Admin: 06/12/18 09:15 Dose: 10 mg Aspirin (Ecotrin) 81 mg PO DAILY [facility] Last Admin: 06/12/18 09:15 Dose: 81 mg Ferrous Sulfate (Feosol) 325 mg PO TID [facility] Last Admin: 06/12/18 13:00 Dose: 325 mg Hydralazine HCl (Apresoline) 25 mg PO TID [facility] Last Admin: 06/12/18 13:00 Dose: 25 mg Insulin Aspart (Novolog) 5 unit SC AC [facility] Last Admin: 06/12/18 12:31 Dose: 5 units Insulin Glargine (Lantus) 25 unit SC HS [facility] Last Admin: 06/11/18 22:15 Dose: 25 units Metoclopramide HCl (Reglan) 10 mg IVP Q6 [facility] Last Admin: 06/12/18 12:30 Dose: 10 mg Metoprolol Succinate (Toprol Xl) 25 mg PO DAILY [facility] Last Admin: 06/12/18 09:16 Dose: 25 mg Ondansetron HCl (Zofran Inj) 4 mg IVP Q6H PRN PRN Reason: Nausea/Vomiting Last Admin: 06/09/18 14:22 Dose: 4 mg Pantoprazole Sodium (Protonix Ec Tab) 40 mg PO DAILY [facility] Last Admin: 06/12/18 09:16 Dose: 40 mg Polyethylene Glycol (Miralax) 17 gm PO BID [facility] Last Admin: 06/12/18 09:15 Dose: Not Given Sevelamer Carbonate (Renvela) 2.4 gm PO TIDCC [facility] Last Admin: 06/12/18 16:08 Dose: Not Given - Labs Labs: 06/09/18 11:53 06/09/18 11:53 PT 12.1 SECONDS (9.7-12.2) 06/07/18 15:16 INR 1.1 06/07/18 15:16 APTT 33 SECONDS (21-34) 06/07/18 15:16 Assessment and Plan - Assessment and Plan (Free Text) Assessment: follow up with pmd in his office ----call for apptointmne continue home medication new prescription given florastor 250 mg po bid for 5 days flagyl 500 mg po q12h for 5 days miralax po bid for 10 days activity as tolerated call dr windy roach or go to the emergency room if symptom return or worsening
--- NOTE | 2018-06-13 03:24 | PN ---
DATE: 06/12/2018 FOLLOWUP RENAL CONSULTATION REQUESTED BY: Josue Marroquin MD REASON FOR FOLLOWUP: End-stage renal disease, continuation of hemodialysis. SUBJECTIVE: Mrs. Orozco is a 53-year-old middle-aged [place] female with a history of longstanding hypertension, diabetes, coronary artery disease, status post CABG, legally blind, CHF, end-stage renal disease, on hemodialysis two times a week for the last two months, who was admitted with the chief complaints of nausea, vomiting, and abdominal pain. The patient is feeling much better, not in acute distress. Denies any chest pain or palpitation. Denies any dysuria or frequency. Denies any swelling of the legs. No shortness of breath. No nausea or vomiting today. The patient is feeling much better, eager to go home. PHYSICAL EXAMINATION: VITAL SIGNS: As follows, blood pressure 136/73, pulse 81, respirations 20, temperature 98.2, saturation 96%. Height 5 feet 5 inches, weight is 126 pounds. GENERAL: Mrs. Orozco is a 53-year-old middle-aged [place] female, moderately built, moderately nourished, not in acute distress. HEENT: Pupils normal, reactive to light and accommodation. Conjunctivae pink. Sclerae anicteric. Tongue is moist. Trachea is midline. LUNGS: Symmetric on both sides. Bilateral breath sounds present. Occasional basal crackles present. CARDIOVASCULAR SYSTEM: [place] at the fifth intercostal space and midclavicular line. S1 and S2 audible. No murmur or gallop. ABDOMEN: Normal in appearance. Soft, tympanitic. No guarding. No rigidity. No hepatosplenomegaly. No abdominal bruit. CENTRAL NERVOUS SYSTEM: The patient is alert, awake, oriented x3. Nonfocal neuro examination. Cranial nerves II through XII grossly intact except poor vision secondary to diabetic retinopathy. MEDICATIONS: Her current medication include as follows: Amlodipine 10 mg daily, aspirin 81 mg daily, Feosol 325 mg p.o. t.i.d., hydralazine 25 mg p.o. t.i.d., NovoLog for sliding scale, Lantus 25 units subcu at bedtime, Reglan 10 mg IV every 6 hours p.r.n., metoprolol 25 mg p.o. daily, Zofran 4 mg IV every 6 hours, pantoprazole 40 mg p.o. daily, MiraLax, and Renvela 2.4 g p.o. t.i.d. LABORATORY DATA: AccuCheks 209 this morning. ASSESSMENT AND PLAN: In summary, Mrs. Orozco is a 53-year-old middle-aged Mauritian female with a history of hypertension, diabetes, hyperlipidemia, coronary artery disease, end-stage renal disease, status post coronary artery bypass grafting, who was admitted with nausea, vomiting, and abdominal discomfort. 1. End-stage renal disease. Continue hemodialysis two times a week; Tuesday and Tuesday for now. 2. Hypertension. Blood pressure is stable. Continue her current blood pressure medications; Norvasc, metoprolol, and hydralazine. 3. Continue gastrointestinal prophylaxis, pantoprazole. 4. Diabetes. Continue Lantus and monitor AccuChek. We will follow with you. Thank you for allowing me to participate in your patient's care. Stable from the renal standpoint to discharge, and the patient can be followed as an outpatient, hemodialysis. The patient will go for dialysis in outpatient [facility] tomorrow if she is discharged. Vasiliy Emery MD
== END 2018-06-12 17:08 | disposition home or self-care (01) | DRG 182 ==
LOC: C.ER 13:13 → C.9E 22:08 → C.6T 06-08 02:25
PROVIDERS: ADMIT Internal Medicine Nephrology; ATTEND Internal Medicine Nephrology
PROC: 5A1D70Z Performance of Urinary Filtration, Intermittent, Less than 6 Hours Per Day (ICD-10-PCS; principal; 2018-06-10)
DX: K29.60 Other gastritis without bleeding (principal); N39.0 Urinary tract infection, site not specified; N18.6 End stage renal disease; E11.22 Type 2 diabetes mellitus with diabetic chronic kidney disease; I13.2 Hypertensive heart and chronic kidney disease with heart failure and with stage 5 chronic kidney disease, or end stage renal disease; I50.9 Heart failure, unspecified; J44.9 Chronic obstructive pulmonary disease, unspecified; E11.319 Type 2 diabetes mellitus with unspecified diabetic retinopathy without macular edema; E11.51 Type 2 diabetes mellitus with diabetic peripheral angiopathy without gangrene; R10.84 Generalized abdominal pain; B96.89 Other specified bacterial agents as the cause of diseases classified elsewhere; M54.9 Dorsalgia, unspecified; K21.9 Gastro-esophageal reflux disease without esophagitis; K59.09 Other constipation; I25.10 Atherosclerotic heart disease of native coronary artery without angina pectoris; N20.0 Calculus of kidney; E78.5 Hyperlipidemia, unspecified; M19.90 Unspecified osteoarthritis, unspecified site; E78.00 Pure hypercholesterolemia, unspecified; H54.8 Legal blindness, as defined in USA; Z95.1 Presence of aortocoronary bypass graft; Z99.2 Dependence on renal dialysis; Z79.4 Long term (current) use of insulin; Z90.710 Acquired absence of both cervix and uterus; Z82.49 Family history of ischemic heart disease and other diseases of the circulatory system

== ENCOUNTER 2018-06-22 11:43 | Inpatient (IN) | payer OTHER ==
[2018-06-22 12:47] LABS: BASO # 0.1 K/uL (0.0-0.2); BASO % 1.7 % (0.0-2.0); EOS # 0.2 K/uL (0.0-0.7); EOS % 2.4 % (0.0-4.0); LYMPH # 1.6 K/uL (1.0-4.3); LYMPH % 19.8 % (20.0-40.0); MEAN CELL VOLUME 78.1 fL (81.0-99.0); MEAN CORPUSCULAR HEMOGLOBIN 25.3 pg (27.0-31.0); MEAN CORPUSCULAR HGB CONC 32.3 g/dL (33.0-37.0); MEAN PLATELET VOLUME 8.1 fL (7.2-11.7); MONO # 0.7 K/uL (0.0-0.8); MONO % 8.2 % (0.0-10.0); NEUT # 5.5 K/uL (1.8-7.0); NEUT % 67.9 % (50.0-75.0); NRBC % 0.2 % (0.0-2.0); RBC 5.14 Mil/uL (3.80-5.20); RED CELL DISTRIBUTION WIDTH 18.5 % (11.5-14.5)
[2018-06-22 13:02] LABS: ALB/GLOB RATIO 0.8 (1.0-2.1); ALBUMIN 3.6 g/dL (3.5-5.0); ALT/SGPT < 6 U/L (9-52); AST/SGOT 22 U/L (14-36); BLOOD UREA NITROGEN 31 mg/dL (7-17); CALCIUM 9.4 mg/dl (8.6-10.4); GFR NON-AFRICAN AMERICAN 11; LIPASE 205 U/L (23-300)
--- NOTE | 2018-06-22 13:24 | C.PDOC ---
History Of Present Illness 53 years old female w/PMHx of HTN, DM II, CAD, COPD, CKD on HD ( Tu, Sat) anemia presents to ED for complaints of "Right sided flank pain traveling along right ribcage to right side of abdomen, pain over my bones", intermittent developed gradually for past 2 days. Pt admits, similar sx in past " was admitted here and over the weekend to [facility], no one can tell me the reason of pain". Otherwise, fever, chills, drooling, neck pain, CP, SOB, dyspnea, palpitation, cough, vomiting, diarrhea, dysuria/hematuria. Pt reports, was taking tylenol for pain at home, was seen by PMD yestreday at office. Time Seen by Provider: 06/22/18 12:36 Chief Complaint (Nursing): Female Genitourinary History Per: Patient Past Medical History Vital Signs: Last Vital Signs Temp 98.1 F 06/22/18 11:51 Pulse 99 H 06/22/18 13:08 Resp 13 06/22/18 13:08 BP 180/89 H 06/22/18 13:08 Pulse Ox 100 06/22/18 13:08 - Medical History PMH: Anemia, Arthritis (KNEE; BACK), CAD, COPD, Diabetes, HTN, Hypercholesterolemia, Chronic Kidney Disease (esrd) Denies: Pulmonary Embolism Surgical History: CABG (09/19) - [facility] Procedures (06/07/18) ASSIST WITH CARDIAC OUTPUT USING BALLOON PUMP, INTERMITTENT (08/31/15) BYPASS LEFT BRACHIAL ARTERY TO UPPER ARM VEIN, OPEN APPROACH (02/17/18) DILATION OF R FEM ART WITH DRUG-ELUT INTRA, PERC APPROACH (01/19/18) DILATION OF RIGHT ANTERIOR TIBIAL ARTERY, PERC APPROACH (01/19/18) DILATION OF RIGHT FEMORAL ARTERY, PERCUTANEOUS APPROACH (01/19/18) DILATION OF RIGHT PERONEAL ARTERY, PERCUTANEOUS APPROACH (01/19/18) EXCISION OF DESCENDING COLON, ENDO, DIAGN (04/01/18) EXCISION OF DUODENUM, ENDO, DIAGN (06/07/16) EXCISION OF STOMACH, ENDO, DIAGN (04/01/18) FLUOROSCOPY OF LEFT HEART USING LOW OSMOLAR CONTRAST (08/31/15) FLUOROSCOPY OF MULT COR ART USING L OSM CONTRAST (08/31/15) INSERT INFUSION DEV IN R INT JUGULAR VEIN, PERC (02/17/18) MEASURE OF CARDIAC SAMPL & PRESSURE, L HEART, PERC APPROACH (08/31/15) TRANSFUSE NONAUT RED BLOOD CELLS IN PERIPH VEIN, PERC (04/01/18) TRANSFUSE NONAUT WHOLE BLOOD IN PERIPH VEIN, PERC (03/11/16) Family History: States: Unknown Family Hx, CAD (mother) - Social History Hx Tobacco Use: No Hx Alcohol Use: No Hx Substance Use: No - Immunization History Hx Tetanus Toxoid Vaccination: Yes Hx Influenza Vaccination: Yes Hx Pneumococcal Vaccination: Yes Physical Exam - Physical Exam Appears: Non-toxic, Other (in pain, crying) Skin: Normal Color, Warm Eye(s): bilateral: PERRL Oral Mucosa: Moist Throat: No Drooling Neck: Trachea Midline, Supple Chest: Tenderness (Right lateral along lower ribcage), No Ecchymosis, No Subcutaneous Emphysema Cardiovascular: Rhythm Regular, No Murmur, No JVD, Other (Right anteror chest wall portacath, intact) Respiratory: No Decreased Breath Sounds, No Accessory Muscle Use, No Rales, No Stridor, No Wheezing Gastrointestinal/Abdominal: Soft, No Tenderness, No Distention, No Guarding Back: No CVA Tenderness Extremity: Normal ROM, No Pedal Edema, Other (Left upper arm AV shunt, (+) thrill) Neurological/Psych: Oriented x3, Normal Speech ED Course And Treatment - Laboratory Results Result Diagrams: 06/22/18 12:36 06/22/18 12:36 Lab Results: Total Bilirubin 0.5 mg/dL (0.2-1.3) 06/22/18 12:36 AST 22 U/L (14-36) 06/22/18 12:36 ALT < 6 U/L (9-52) L D 06/22/18 12:36 Alkaline Phosphatase 139 U/L (38-126) H D 06/22/18 12:36 Total Protein 8.1 g/dL (6.3-8.3) 06/22/18 12:36 Albumin 3.6 g/dL (3.5-5.0) 06/22/18 12:36 Globulin 4.5 gm/dL (2.2-3.9) H 06/22/18 12:36 Albumin/Globulin Ratio 0.8 (1.0-2.1) L 06/22/18 12:36 Lipase 205 U/L (23-300) 06/22/18 12:36 Lab Interpretation: No Changes Compared To Prior Results ECG: Interpreted By Me, Viewed By Me ECG Interpretation: No Changes From Prior Interpretation Of ECG: SR@99/min, NAD, T wave inversion in II,AVL,AVF, no acute ST- T changes. Old EKg review from 06/07/18 and appears similar, no new acute changes noted. O2 Sat by Pulse Oximetry: 100 Pulse Ox Interpretation: Normal Progress Note: Case discussed with ( pt's PMD). Pt was admitted to [facility] 3 days ago, when CT chest/abd performed without findings of acute pathology was found to explain re-current Right sided pain. On re-eval at 14:30, pt resting comforably in bed, sleeping, reports " feel better now". Afebrile, hemod ynamicaly stable. BP found to be elevated, " did not take my BP medictaion this AM". CVS: (+)S1S2, reg, (-) murmur. Lungs: CTA B/L, BS equal B/L. Abd: benign, (-) guarding, (-) rebound, (-) localized tenderness. neurologicaly intact. Blood work review nd appears baseline, no new acute changes noted. BP re-checked after pt was medicated, appears improved. Pt was OBS in ED for 4 hours, at 15:10, still c/o Right sided pain. Case discusse kisha Delgado and admission arranged. Disposition - Disposition Disposition: HOSPITALIZED Disposition Time: 15:58 Condition: STABLE - Clinical Impression Clinical Impression: Intractable abdominal pain, CKD (chronic kidney disease)
[2018-06-22] MEDS ORDERED: Morphine 4 MG/ML VIAL ONE (13:34)
--- NOTE | 2018-06-22 14:36 | RAD ---
HISTORY: pain COMPARISON: Chest x-ray performed 06/07/18 TECHNIQUE: Chest, one view. FINDINGS: Right IJ approach dialysis catheter with distal tips extending to the SVC/cavoatrial junction. LUNGS: Hypoinflation. Mild pulmonary venous congestion. No focal consolidation. Please note that chest x-ray has limited sensitivity for the detection of pulmonary masses. PLEURA: No significant pleural effusion identified. No definite pneumothorax . CARDIOVASCULAR: Median sternotomy wires with evidence of CABG. Cardiomegaly. Atherosclerotic calcifications. OSSEOUS STRUCTURES: Degenerative changes. VISUALIZED UPPER ABDOMEN: Unremarkable. OTHER FINDINGS: None. IMPRESSION: Right IJ approach dialysis catheter with distal tips extending to the SVC/cavoatrial junction. Hypoinflation. Mild pulmonary venous congestion. Cardiomegaly.
[2018-06-22] MEDS ORDERED: Metoprolol Succinate 25 mg XL Tab PO ONE (14:48)
[2018-06-22] MEDS ORDERED: Metoprolol Succinate 50 mg XL Tab PO ONE (14:57)
--- NOTE | 2018-06-22 20:06 | CP.PCM.CON ---
History of Present Illness - History of Present Illness History of Present Illness: 53F presenting The pain has been intermittent over the last month She also c/o upper back pain - nonspecific She denies fever She was admitted for pain 2 weeks ago and renal calculi were found She had EGD and colonoscopy 04/23 which showed poor prep and esophagitis, . CT scan showed pleural effusions but no acute findings of the abdomen. She was placed on flagyl, moxifloxacin, ppi and then treated as out pt with Flagyl she denies diarrhea Septic work up was negative PMHx - DM, CAD s/p CABG, ESRD, HTN. PVD PSHx - CABG, hysterectomy. FmHX - no GI related cancers. SocHx - Denies alcohol, tobacco. She lives with parent at home. Review of Systems - Review of Systems All systems: reviewed and no additional remarkable complaints except Past Patient History - Infectious Disease Hx of Infectious Diseases: None - Past Medical History & Family History Past Medical History?: Yes - Past Social History Smoking Status: Never Smoked - CARDIAC Hx Hypercholesterolemia: Yes Hx Hypertension: Yes - PULMONARY Hx Chronic Obstructive Pulmonary Disease (COPD): Yes Hx Pulmonary Embolism: No - NEUROLOGICAL Hx Neurological Disorder: Yes Hx Syncope: Yes - HEENT Hx HEENT Problems: No - RENAL Hx Chronic Kidney Disease: Yes (esrd) - ENDOCRINE/METABOLIC Hx Endocrine Disorders: Yes Hx Diabetes Mellitus Type 1: Yes - HEMATOLOGICAL/ONCOLOGICAL Hx Anemia: Yes - INTEGUMENTARY Hx Dermatological Problems: No - MUSCULOSKELETAL/RHEUMATOLOGICAL Hx Arthritis: Yes (KNEE; BACK) - GASTROINTESTINAL Hx Gastrointestinal Disorders: Yes Hx Gastroesophageal Reflux: Yes - GENITOURINARY/GYNECOLOGICAL Hx Genitourinary Disorders: No - PSYCHIATRIC Hx Substance Use: No - SURGICAL HISTORY Hx Coronary Artery Bypass Graft: Yes (09/19) - ANESTHESIA Hx Anesthesia: Yes Hx Anesthesia Reactions: No Hx Malignant Hyperthermia: No Meds Allergies/Adverse Reactions: Allergies Allergy/AdvReac Type Severity Reaction Status Date / Time No Known Allergies Allergy Verified 06/22/18 11:50 - Medications Medications: Current Medications Albuterol/Ipratropium (Duoneb 3 Mg/0.5 Mg (3 Ml) Ud) 3 ml INH RQ6 [facility] Amlodipine Besylate (Norvasc) 10 mg PO DAILY [facility] Aspirin (Ecotrin) 81 mg PO DAILY [facility] Ferrous Sulfate (Feosol) 325 mg PO TID [facility] Heparin Sodium (Porcine) (Heparin) 5,000 units SC Q8 [facility] Hydralazine HCl (Apresoline) 25 mg PO TID [facility] Insulin Aspart (Novolog) 5 unit SC AC [facility] Insulin Aspart (Novolog) 0 unit SC ACHS [facility]; Protocol Insulin Glargine (Lantus) 25 unit SC HS [facility] Metoprolol Succinate (Toprol Xl) 25 mg PO DAILY [facility] Metronidazole (Flagyl) 500 mg PO Q12H [facility]; Protocol Oxycodone/Acetaminophen (Percocet 5/325 Mg Tab) 1 tab PO Q6H PRN PRN Reason: Pain, Mild (1-3) Stop: 06/25/18 19:21 Pantoprazole Sodium (Protonix Inj) 40 mg IVP DAILY [facility] Polyethylene Glycol (Miralax) 17 gm PO BID [facility] Saccharomyces Boulardii (Florastor) 250 mg PO BID [facility] Sevelamer Carbonate (Renvela) 2.4 gm PO TIDCC [facility] Physical Exam - Constitutional Appears: No Acute Distress, Chronically Ill - Head Exam Head Exam: ATRAUMATIC - Eye Exam Eye Exam: absent: Scleral icterus - ENT Exam ENT Exam: Mucous Membranes Dry - Neck Exam Neck exam: Negative for: Thyromegaly - Respiratory Exam Respiratory Exam: Decreased Breath Sounds - Cardiovascular Exam Cardiovascular Exam: REGULAR RHYTHM, +S1, +S2 - GI/Abdominal Exam GI & Abdominal Exam: Diminished Bowel Sounds - Rectal Exam Rectal Exam: Deferred - Exam Exam: NORMAL INSPECTION - Extremities Exam Extremities exam: Negative for: pedal edema - Back Exam Back exam: absent: CVA tenderness (L), CVA tenderness (R) - Neurological Exam Neurological exam: Alert, CN II-XII Intact, Oriented x3, Reflexes Normal - Psychiatric Exam Psychiatric exam: Depressed - Skin Skin Exam: Dry Results - Vital Signs Recent Vital Signs: Last Vital Signs Temp 97.5 F L 06/22/18 17:25 Pulse 99 H 06/22/18 17:25 Resp 20 06/22/18 17:25 BP 187/95 H 06/22/18 17:25 Pulse Ox 100 06/22/18 17:45 - Labs Result Diagrams: 06/22/18 12:36 06/22/18 12:36 Labs: Laboratory Results - last 24 hr 06/22/18 06/22/18 12:36 12:36 WBC 8.0 RBC 5.14 Hgb 13.0 D Hct 40.2 MCV 78.1 L MCH 25.3 L MCHC 32.3 L RDW 18.5 H Plt Count 533 H D MPV 8.1 Neut % (Auto) 67.9 Lymph % (Auto) 19.8 L [place] % (Auto) 8.2 Eos % (Auto) 2.4 Baso % (Auto) 1.7 Neut # (Auto) 5.5 Lymph # (Auto) 1.6 [place] # (Auto) 0.7 Eos # (Auto) 0.2 Baso # (Auto) 0.1 Sodium 133 Potassium 4.6 Chloride 99 Carbon Dioxide 25 Anion Gap 13 BUN 31 H Creatinine 4.4 H Est GFR ( Amer) 13 Est GFR (Non-Af Amer) 11 Random Glucose 294 H D Calcium 9.4 Total Bilirubin 0.5 AST 22 ALT < 6 L D Alkaline Phosphatase 139 H D Total Protein 8.1 Albumin 3.6 Globulin 4.5 H Albumin/Globulin Ratio 0.8 L Lipase 205 Assessment & Plan (1) CKD (chronic kidney disease) Status: Acute (2) Intractable abdominal pain Status: Acute - Assessment and Plan (Free Text) Assessment: doubt infectious etiology consider CT angio Chest / Abdomen check CPK levels and Troponoins Cont tele GI eval to r/o Ischemic colitis , inflammatory , infectious, neoplastic causes
[2018-06-22] MEDS: Oxycodone/Acetaminophen 5/325 mg Tab PO PRN (20:15)
[2018-06-22] MEDS: (Novolog) Insulin Aspart, Recombinant 100 u/ml 10 ml vial SC SCH (21:17)
[2018-06-22] MEDS: (Lantus) Insulin Glargine, Recombinant SC SCH (21:24)
[2018-06-22 22:06] LABS: TROPONIN I 0.933 ng/mL (0.00-0.120)
[2018-06-22] MEDS ORDERED: Iohexol 240 (50 ml) PO ONE (22:15)
[2018-06-23] MEDS: Albuterol-Ipratrop 3 mg / 0.5 (3 ml) UD INH SCH ×4 (01:36→20:35)
--- NOTE | 2018-06-23 07:43 | CP.PCM.CON ---
History of Present Illness - History of Present Illness History of Present Illness: This is a 53 year old woman with right upper quadrant pain and right flank pain. Patient reports having sharp/cramping pain in the right flank and right upper quadrant, constant, daily, for the past several months. There is no clear relation to meals or to defecation. Her appetite has been poor, and she has lost 20 pounds in the past month. She vomited twice yesterday. She denies having difficulty swallowing and heartburn. She complains of constipation, infrequent bowel movements, every other day, which are firm. She denies having diarrhea and rectal bleeding. She was evaluated by Dr. Chen in June,, for dysphagia. EGD 06/10/16 showed normal esophagus, non-erosive gastritis and retained food in the antrum. Biopsies were positive for H pylori. She has been hospitalized twice recently, 04/01/18-04/07/18 and 06/07/18-06/12/18. She was evaluated by Dr Calle on 04/06/18 with EGD and colonoscopy. EGD showed esophagitis, hiatal hernia, non-erosive gastritis. Colonoscopy showed congested mucosa in the descending colon, but the prep in the right colon was poor. She was also seen by Dr. Chen on 06/08/17 for left sided abdominal pain, primarily in the LLQ. CT scan 06/08/17 showed hepatomegaly, bilateral pleural effusions, cardiomegaly, sclerotic pattern involving the bones, particularly the spine. Review of Systems - Review of Systems All systems: reviewed and no additional remarkable complaints except - Constitutional Constitutional: Weight Loss. absent: Chills, Fever - Cardiovascular Cardiovascular: absent: Chest Pain, Dyspnea, Palpitations - Respiratory Respiratory: absent: Cough, Dyspnea - Gastrointestinal Gastrointestinal: Abdominal Pain, Constipation, Nausea, Vomiting. absent: Diarrhea, Dysphagia, Heartburn, Hematochezia - Genitourinary Genitourinary: absent: Dysuria, Hematuria - Musculoskeletal Musculoskeletal: absent: Neck Pain Past Patient History - Infectious Disease Hx of Infectious Diseases: None - Past Medical History & Family History Past Medical History?: Yes - Past Social History Smoking Status: Never Smoked - CARDIAC Hx Hypercholesterolemia: Yes Hx Hypertension: Yes - PULMONARY Hx Chronic Obstructive Pulmonary Disease (COPD): Yes Hx Pulmonary Embolism: No - NEUROLOGICAL Hx Neurological Disorder: Yes Hx Syncope: Yes - HEENT Hx HEENT Problems: No - RENAL Hx Chronic Kidney Disease: Yes (esrd) - ENDOCRINE/METABOLIC Hx Endocrine Disorders: Yes Hx Diabetes Mellitus Type 1: Yes - HEMATOLOGICAL/ONCOLOGICAL Hx Anemia: Yes - INTEGUMENTARY Hx Dermatological Problems: No - MUSCULOSKELETAL/RHEUMATOLOGICAL Hx Arthritis: Yes (KNEE; BACK) - GASTROINTESTINAL Hx Gastrointestinal Disorders: Yes Hx Gastroesophageal Reflux: Yes - GENITOURINARY/GYNECOLOGICAL Hx Genitourinary Disorders: No - PSYCHIATRIC Hx Substance Use: No - SURGICAL HISTORY Hx Coronary Artery Bypass Graft: Yes (09/19) - ANESTHESIA Hx Anesthesia: Yes Hx Anesthesia Reactions: No Hx Malignant Hyperthermia: No Meds Allergies/Adverse Reactions: Allergies Allergy/AdvReac Type Severity Reaction Status Date / Time No Known Allergies Allergy Verified 06/22/18 11:50 - Medications Medications: Current Medications Albuterol/Ipratropium (Duoneb 3 Mg/0.5 Mg (3 Ml) Ud) 3 ml INH RQ6 [facility] Last Admin: 06/23/18 01:36 Dose: Not Given Amlodipine Besylate (Norvasc) 10 mg PO DAILY [facility] Aspirin (Ecotrin) 81 mg PO DAILY [facility] Ferrous Sulfate (Feosol) 325 mg PO TID [facility] Heparin Sodium (Porcine) (Heparin) 5,000 units SC Q8 [facility] Last Admin: 06/23/18 07:00 Dose: 5,000 units Hydralazine HCl (Apresoline) 25 mg PO TID [facility] Insulin Aspart (Novolog) 5 unit SC AC [facility] Insulin Aspart (Novolog) 0 unit SC ACHS [facility]; Protocol Last Admin: 06/22/18 21:17 Dose: Not Given Insulin Glargine (Lantus) 25 unit SC HS [facility] Last Admin: 06/22/18 21:24 Dose: 25 units Metoprolol Succinate (Toprol Xl) 25 mg PO DAILY [facility] Metronidazole (Flagyl) 500 mg PO Q12H [facility]; Protocol Last Admin: 06/23/18 01:08 Dose: 500 mg Oxycodone/Acetaminophen (Percocet 5/325 Mg Tab) 1 tab PO Q6H PRN PRN Reason: Pain, Mild (1-3) Stop: 06/25/18 19:21 Last Admin: 06/22/18 20:15 Dose: 1 tab Pantoprazole Sodium (Protonix Inj) 40 mg IVP DAILY [facility] Polyethylene Glycol (Miralax) 17 gm PO BID [facility] Saccharomyces Boulardii (Florastor) 250 mg PO BID [facility] Sevelamer Carbonate (Renvela) 2.4 gm PO TIDCC [facility] Physical Exam - Constitutional Appears: No Acute Distress - Head Exam Head Exam: ATRAUMATIC, NORMOCEPHALIC - Eye Exam Eye Exam: EOMI, PERRL - Neck Exam Neck exam: Negative for: Lymphadenopathy, Thyromegaly - Respiratory Exam Respiratory Exam: NORMAL BREATHING PATTERN. absent: Rales, Rhonchi, Wheezes - Cardiovascular Exam Cardiovascular Exam: REGULAR RHYTHM, +S1, +S2. absent: Gallop, Rubs, Systolic Murmur - GI/Abdominal Exam GI & Abdominal Exam: Normal Bowel Sounds, Soft. absent: Mass, Organomegaly, Tenderness - Rectal Exam Rectal Exam: Deferred - Extremities Exam Extremities exam: Negative for: calf tenderness, pedal edema Results - Vital Signs Recent Vital Signs: Last Vital Signs Temp 97.8 F 06/23/18 00:00 Pulse 77 06/23/18 00:00 Resp 20 06/23/18 00:00 BP 135/68 06/23/18 00:00 Pulse Ox 94 L 06/23/18 03:40 - Labs Result Diagrams: 06/22/18 12:36 06/22/18 12:36 Labs: Laboratory Results - last 24 hr 06/22/18 06/22/18 06/22/18 12:36 12:36 21:08 WBC 8.0 RBC 5.14 Hgb 13.0 D Hct 40.2 MCV 78.1 L MCH 25.3 L MCHC 32.3 L RDW 18.5 H Plt Count 533 H D MPV 8.1 Neut % (Auto) 67.9 Lymph % (Auto) 19.8 L [place] % (Auto) 8.2 Eos % (Auto) 2.4 Baso % (Auto) 1.7 Neut # (Auto) 5.5 Lymph # (Auto) 1.6 [place] # (Auto) 0.7 Eos # (Auto) 0.2 Baso # (Auto) 0.1 Sodium 133 Potassium 4.6 Chloride 99 Carbon Dioxide 25 Anion Gap 13 BUN 31 H Creatinine 4.4 H Est GFR ( Amer) 13 Est GFR (Non-Af Amer) 11 POC Glucose (mg/dL) 250 H Random Glucose 294 H D Calcium 9.4 Total Bilirubin 0.5 AST 22 ALT < 6 L D Alkaline Phosphatase 139 H D Total Creatine Kinase Troponin I Total Protein 8.1 Albumin 3.6 Globulin 4.5 H Albumin/Globulin Ratio 0.8 L Lipase 205 Procalcitonin 06/22/18 06/22/18 06/23/18 21:17 21:17 03:36 WBC RBC Hgb Hct MCV MCH MCHC RDW Plt Count MPV Neut % (Auto) Lymph % (Auto) [place] % (Auto) Eos % (Auto) Baso % (Auto) Neut # (Auto) Lymph # (Auto) [place] # (Auto) Eos # (Auto) Baso # (Auto) Sodium Potassium Chloride Carbon Dioxide Anion Gap BUN Creatinine Est GFR ( Amer) Est GFR (Non-Af Amer) POC Glucose (mg/dL) Random Glucose Calcium Total Bilirubin AST ALT Alkaline Phosphatase Total Creatine Kinase 63 Troponin I 0.9330 H* 0.8180 H* Total Protein Albumin Globulin Albumin/Globulin Ratio Lipase Procalcitonin 0.29 Assessment & Plan (1) RUQ abdominal pain Assessment and Plan: Patient has a history of left-sided abdominal pain and now presents with RUQ pain. CT scan has been performed but has not yet been read. Will order MRI and consider CT angiography, with dialysis to follow. Status: Acute
[2018-06-23] MEDS: (Novolog) Insulin Aspart, Recombinant 100 u/ml 10 ml vial SC SCH ×7 (08:30→21:18)
[2018-06-23] MEDS: Sevelamer Carb 2.4 gm/Packet PO SCH ×3 (09:00→17:48)
[2018-06-23] MEDS: Oxycodone/Acetaminophen 5/325 mg Tab PO PRN ×2 (09:15→15:02)
[2018-06-23] MEDS: Saccharomyces Boulardi 250 mg Cap PO SCH ×2 (11:13→17:47)
[2018-06-23] MEDS: Metoprolol Succinate 25 mg XL Tab PO SCH (11:13)
[2018-06-23] MEDS: POLYETHYLENE GLYCOL 3350 17 GM/Dose PACKET PO SCH ×2 (11:14→17:47)
--- NOTE | 2018-06-23 13:29 | CT ---
Date of service: 06/23/2018 PROCEDURE: CT Abdomen and Pelvis with contrast HISTORY: INTRACTABLE ABDOMINAL PAIN COMPARISON: Abdomen pelvis CT without contrast 06/07/2018. TECHNIQUE: Helical CT of the abdomen and pelvis was performed following oral contrast administration only. Intravenous contrast was not administered as per referring physician request. Coronal and sagittal reformats were generated. Contrast dose: None Radiation dose: Total exam DLP = 269.17 mGy-cm. This CT exam was performed using one or more of the following dose reduction techniques: Automated exposure control, adjustment of the mA and/or kV according to patient size, and/or use of iterative reconstruction technique. FINDINGS: LOWER THORAX: Bilateral pleural effusions are reiterated slightly the sys lesser at the right and minimally greater the left, but remaining mild overall bilaterally. Cardiomegaly appears stable. LIVER: Unremarkable. No gross lesion or ductal dilatation. GALLBLADDER AND BILE DUCTS: Unremarkable. PANCREAS: Unremarkable. No gross lesion or ductal dilatation. SPLEEN: Unremarkable. ADRENALS: Unremarkable. No mass. KIDNEYS AND URETERS: No definite radiodense urolithiasis bilaterally. Reiterated arterial calcifications seen in the bilateral hilar regions. No hydronephrosis. No solid mass. VASCULATURE: Nonaneurysmal abdominal aortic calcific atherosclerotic changes are identified. BOWEL: Unremarkable. No obstruction. No gross mural thickening. APPENDIX: Normal appendix. PERITONEUM: Unremarkable. No free fluid. No free air. LYMPH NODES: Unremarkable. No enlarged lymph nodes. BLADDER: Unremarkable. REPRODUCTIVE: Unremarkable. BONES: No acute fracture. OTHER FINDINGS: None. IMPRESSION: 1. No pattern of acute abdominal or pelvic disease appreciable in the interval. 2. Distended smooth and thin walled urinary bladder 3. Mild bilateral pleural effusions persist as discussed above incidentally. Concordant preliminary report from [facility], 06/23/2018, 1:17 a.m..
--- NOTE | 2018-06-23 16:11 | MRI ---
Date of service: 06/23/2018 PROCEDURE: MR LUMBAR SPINE WITHOUT CONTRAST HISTORY: Radicular pain COMPARISON: Lumbar spine radiographs 06/09/2018. TECHNIQUE: Multiecho multiplanar sequences were performed through the lumbar spine without the use of intravenous contrast. FINDINGS: Normal lumbar lordosis. Vertebral body heights are preserved. Marked disc desiccation without disc height loss seen at L5-S1 with similar desiccation at L4-5 but with mild disc height loss. Marrow signal unremarkable. Conus medullaris unremarkable at the level of L1 superior endplate. Paraspinal soft tissues are unremarkable. T12-L1: No disc herniation, spinal canal stenosis or neural foraminal narrowing. L1-2: No disc herniation, spinal canal stenosis or neural foraminal narrowing. L2-3: No disc herniation, spinal canal stenosis or neural foraminal narrowing. L3-4: No disc herniation, spinal canal stenosis or neural foraminal narrowing. L4-5: Asymmetric disc bulge or disc herniation is appreciated which predominantly left-sided but with some right-sided and circumferential component combining with facet joint degenerative arthropathy resulting in mild central stenosis greater the left and right corinne canal a mild left neural foraminal stenosis. No significant right neural foraminal stenosis. L5-S1: Similar circumferential disc herniation is appreciated as at L4-5 though smaller, appearing greater at the left and right sides versus asymmetric disc bulging. Lateral recess is encroached at the left side with the right corinne canal unremarkable. Facet joint degenerative changes are identified symmetric with a moderate left neural foraminal stenosis identified but none on the right. OTHER FINDINGS: None. IMPRESSION: 1. Asymmetric disc bulges are identified greater the left and right sides versus broad-based disc herniations at L4-5 and L5-S1 resulting in mild left corinne canal stenosis and mild left neural foraminal stenosis at L4-5 and only left lateral recess stenosis and moderate left neural foraminal stenosis at L5-S1 respectively. 2. No fracture or spondylolisthesis or suspicious matter signal change. The remainder of the central canal exclusive of levels described in impression 1. is widely patent.
--- NOTE | 2018-06-23 16:45 | MRI ---
Date of service: 06/23/2018 PROCEDURE: MR THORACIC SPINE WITHOUT CONTRAST HISTORY: Radicular pain, renal osteodystrophy COMPARISON: Correlation made with CT scan of the abdomen pelvis obtained earlier same day. Comparison also made with radiographs of the thoracic spine 06/09/2018. Comparison also made with CTA of the chest dated 10/14/2016 which image the thoracic spine in 3 planes TECHNIQUE: Multiecho multiplanar sequences were performed through the thoracic spine without the use of intravenous contrast. FINDINGS: The current study reveals no acute compression fractures no retropulsed fragments. Vertebral bodies exhibit normal stature. Vertebral bodies and facets normally aligned. ALIGNMENT: The there are no acute compression fractures no retropulsed fragments disc thoracic kyphosis. VERTEBRA: Vertebral body height are preserved. Disc space heights maintained. There are no disc herniations nor significant disc bulges. The overall central bony canal and exit foramina appear adequate so far as can be seen. MARROW: The small focal area of bright T1 and T2 signal within the segment posterior superior corner of the T7 segment probably could represent a small hemangioma.. PARASPINAL SOFT TISSUES: Unremarkable. CORD: There is localized area of irregular prolonged T2 signal within the upper thoracic spinal cord at approximately the T3 level (seen only on sagittal T2 sequence) is felt to represent artifact which is seen crossing the sagittal T2 sequence image number 7 from superior to inferior. This artifact is not seen any other sequence. There is another area artifact at the T4-T5 level seen only on the sagittal T1 sequence.. Conus terminates at approximately the L1 level. DISCS: No disc herniation, spinal canal stenosis, or neuroforaminal narrowing. OTHER FINDINGS: Bilateral pleural effusions are present. IMPRESSION: No acute fractures. No disc herniation or significant disc bulge. The overall central bony canal exit foramina appear adequate. Bilateral pleural effusions.
--- NOTE | 2018-06-23 16:47 | CP.PCM.PN ---
Subjective - Date & Time of Evaluation Date of Evaluation: 06/23/18 Time of Evaluation: 08:00 - Subjective Subjective: STILL C/O PAIN RUQ DR LANE ON BOARD REMAINS AFEBRILE Objective - Vital Signs/Intake and Output Vital Signs (last 24 hours): Temp Pulse Resp BP Pulse Ox 97.4 F L 82 20 141/76 96 06/23/18 08:40 06/23/18 08:40 06/23/18 08:40 06/23/18 08:40 06/23/18 08:40 Intake and Output: 06/23/18 06/23/18 06:59 18:59 Intake Total 450 Balance 450 - Medications Medications: Current Medications Albuterol/Ipratropium (Duoneb 3 Mg/0.5 Mg (3 Ml) Ud) 3 ml INH RQ6 [facility] Last Admin: 06/23/18 13:15 Dose: 3 ml Amlodipine Besylate (Norvasc) 10 mg PO DAILY [facility] Last Admin: 06/23/18 11:20 Dose: 10 mg Aspirin (Ecotrin) 81 mg PO DAILY [facility] Last Admin: 06/23/18 11:13 Dose: 81 mg Ferrous Sulfate (Feosol) 325 mg PO TID [facility] Last Admin: 06/23/18 13:31 Dose: 325 mg Heparin Sodium (Porcine) (Heparin) 5,000 units SC Q8 [facility] Last Admin: 06/23/18 13:32 Dose: 5,000 units Hydralazine HCl (Apresoline) 25 mg PO TID [facility] Last Admin: 06/23/18 13:32 Dose: 25 mg Insulin Aspart (Novolog) 5 unit SC AC [facility] Last Admin: 06/23/18 12:30 Dose: Not Given Insulin Aspart (Novolog) 0 unit SC ACHS [facility]; Protocol Last Admin: 06/23/18 12:30 Dose: Not Given Insulin Glargine (Lantus) 25 unit SC HS [facility] Last Admin: 06/22/18 21:24 Dose: 25 units Metoprolol Succinate (Toprol Xl) 25 mg PO DAILY [facility] Last Admin: 06/23/18 11:13 Dose: 25 mg Metronidazole (Flagyl) 500 mg PO Q12H [facility]; Protocol Last Admin: 06/23/18 13:00 Dose: 500 mg Oxycodone/Acetaminophen (Percocet 5/325 Mg Tab) 1 tab PO Q6H PRN PRN Reason: Pain, Mild (1-3) Stop: 06/25/18 19:21 Last Admin: 06/23/18 15:02 Dose: 1 tab Pantoprazole Sodium (Protonix Inj) 40 mg IVP DAILY [facility] Last Admin: 06/23/18 11:14 Dose: 40 mg Polyethylene Glycol (Miralax) 17 gm PO BID [facility] Last Admin: 06/23/18 11:14 Dose: 17 gm Saccharomyces Boulardii (Florastor) 250 mg PO BID [facility] Last Admin: 06/23/18 11:13 Dose: 250 mg Sevelamer Carbonate (Renvela) 2.4 gm PO TIDCC [facility] Last Admin: 06/23/18 13:00 Dose: 2.4 gm - Labs Labs: 06/22/18 12:36 06/22/18 12:36 - Constitutional Appears: Non-toxic, Chronically Ill - Head Exam Head Exam: NORMOCEPHALIC - Eye Exam Eye Exam: absent: Scleral icterus - ENT Exam ENT Exam: Mucous Membranes Dry - Neck Exam Neck Exam: absent: Lymphadenopathy - Respiratory Exam Respiratory Exam: Decreased Breath Sounds - Cardiovascular Exam Cardiovascular Exam: REGULAR RHYTHM - GI/Abdominal Exam GI & Abdominal Exam: Distended, Soft, Tenderness - Rectal Exam Rectal Exam: Deferred - Exam Exam: NORMAL INSPECTION - Extremities Exam Extremities Exam: absent: Pedal Edema - Back Exam Back Exam: absent: CVA tenderness (L), CVA tenderness (R) - Neurological Exam Neurological Exam: Alert, Awake, Oriented x3 - Psychiatric Exam Psychiatric exam: Depressed - Skin Skin Exam: Dry Assessment and Plan (1) CKD (chronic kidney disease) Status: Acute (2) Intractable abdominal pain Status: Acute - Assessment and Plan (Free Text) Assessment: AWAIT MRI REPORT CONT RX PER DR YOUNG
[2018-06-23] MEDS: (Lantus) Insulin Glargine, Recombinant SC SCH (21:31)
--- NOTE | 2018-06-23 22:19 | CP.PCM.CON ---
History of Present Illness - History of Present Illness History of Present Illness: pt is seen and examined, full consult is dictated #[id number] for hd in am check bladder sca, u/a. c/s Past Patient History - Infectious Disease Hx of Infectious Diseases: None - Past Medical History & Family History Past Medical History?: Yes - Past Social History Smoking Status: Never Smoked - CARDIAC Hx Hypercholesterolemia: Yes Hx Hypertension: Yes - PULMONARY Hx Chronic Obstructive Pulmonary Disease (COPD): Yes Hx Pulmonary Embolism: No - NEUROLOGICAL Hx Neurological Disorder: Yes Hx Syncope: Yes - HEENT Hx HEENT Problems: No - RENAL Hx Chronic Kidney Disease: Yes (esrd) - ENDOCRINE/METABOLIC Hx Endocrine Disorders: Yes Hx Diabetes Mellitus Type 1: Yes - HEMATOLOGICAL/ONCOLOGICAL Hx Anemia: Yes - INTEGUMENTARY Hx Dermatological Problems: No - MUSCULOSKELETAL/RHEUMATOLOGICAL Hx Arthritis: Yes (KNEE; BACK) - GASTROINTESTINAL Hx Gastrointestinal Disorders: Yes Hx Gastroesophageal Reflux: Yes - GENITOURINARY/GYNECOLOGICAL Hx Genitourinary Disorders: No - PSYCHIATRIC Hx Substance Use: No - SURGICAL HISTORY Hx Coronary Artery Bypass Graft: Yes (09/19) - ANESTHESIA Hx Anesthesia: Yes Hx Anesthesia Reactions: No Hx Malignant Hyperthermia: No Meds Allergies/Adverse Reactions: Allergies Allergy/AdvReac Type Severity Reaction Status Date / Time No Known Allergies Allergy Verified 06/22/18 11:50 - Medications Medications: Current Medications Albuterol/Ipratropium (Duoneb 3 Mg/0.5 Mg (3 Ml) Ud) 3 ml INH RQ6 [facility] Last Admin: 06/23/18 20:35 Dose: 3 ml Amlodipine Besylate (Norvasc) 10 mg PO DAILY [facility] Last Admin: 06/23/18 11:20 Dose: 10 mg Aspirin (Ecotrin) 81 mg PO DAILY [facility] Last Admin: 06/23/18 11:13 Dose: 81 mg Ferrous Sulfate (Feosol) 325 mg PO TID [facility] Last Admin: 06/23/18 17:47 Dose: 325 mg Heparin Sodium (Porcine) (Heparin) 5,000 units SC Q8 [facility] Last Admin: 06/23/18 21:31 Dose: 5,000 units Hydralazine HCl (Apresoline) 25 mg PO TID [facility] Last Admin: 06/23/18 17:47 Dose: 25 mg Insulin Aspart (Novolog) 5 unit SC AC [facility] Last Admin: 06/23/18 17:22 Dose: Not Given Insulin Aspart (Novolog) 0 unit SC ACHS [facility]; Protocol Last Admin: 06/23/18 21:18 Dose: Not Given Insulin Glargine (Lantus) 25 unit SC HS [facility] Last Admin: 06/23/18 21:31 Dose: 25 units Metoprolol Succinate (Toprol Xl) 25 mg PO DAILY [facility] Last Admin: 06/23/18 11:13 Dose: 25 mg Metronidazole (Flagyl) 500 mg PO Q12H [facility]; Protocol Last Admin: 06/23/18 13:00 Dose: 500 mg Oxycodone/Acetaminophen (Percocet 5/325 Mg Tab) 1 tab PO Q6H PRN PRN Reason: Pain, Mild (1-3) Stop: 06/25/18 19:21 Last Admin: 06/23/18 15:02 Dose: 1 tab Pantoprazole Sodium (Protonix Inj) 40 mg IVP DAILY [facility] Last Admin: 06/23/18 11:14 Dose: 40 mg Polyethylene Glycol (Miralax) 17 gm PO BID [facility] Last Admin: 06/23/18 17:47 Dose: 17 gm Saccharomyces Boulardii (Florastor) 250 mg PO BID [facility] Last Admin: 06/23/18 17:47 Dose: 250 mg Sevelamer Carbonate (Renvela) 2.4 gm PO TIDCC [facility] Last Admin: 06/23/18 17:48 Dose: 2.4 gm Results - Vital Signs Recent Vital Signs: Last Vital Signs Temp 97.9 F 06/23/18 17:38 Pulse 79 06/23/18 17:38 Resp 18 06/23/18 17:38 BP 151/72 H 06/23/18 17:38 Pulse Ox 96 06/23/18 19:19 - Labs Result Diagrams: 06/22/18 12:36 06/22/18 12:36 Labs: Laboratory Results - last 24 hr 06/23/18 06/23/18 06/23/18 03:36 08:37 11:21 POC Glucose (mg/dL) 116 H Troponin I 0.8180 H* 0.7840 H* 06/23/18 06/23/18 06/23/18 11:26 16:30 21:06 POC Glucose (mg/dL) 148 H 186 H 180 H Troponin I
[2018-06-24] MEDS: Albuterol-Ipratrop 3 mg / 0.5 (3 ml) UD INH SCH ×4 (01:10→20:18)
[2018-06-24] MEDS: Oxycodone/Acetaminophen 5/325 mg Tab PO PRN ×3 (02:37→17:41)
--- NOTE | 2018-06-24 04:04 | CON ---
DATE: 06/23/2018 LOCATION: The patient is located in room 360, bed B. REQUESTED BY: Carlos Haddad MD REASON FOR RENAL CONSULTATION: End-stage renal disease, continuation of the hemodialysis. HISTORY OF PRESENT ILLNESS: Mrs. Orozco is a 53-year-old middle-aged [place] female with a past medical history significant for longstanding hypertension; diabetes; diabetic retinopathy with poor vision; coronary artery disease, status post CABG; hyperlipidemia; CHF; end-stage renal disease, on hemodialysis two times a week; who was recently admitted to [facility] for back pain, abdominal pain, nausea, and vomiting. Subsequently, the patient was discharged after treating for possible gastroenteritis and questionable UTI. Subsequently, the patient went back to [facility] with the similar complaints and discharged home. Now, the patient was readmitted to [facility] with the chief complaints of back pain, epigastric pain, and also right upper quadrant pain, unable to sleep. No chest pain. No palpitation. No nausea, vomiting, or diarrhea. No fever. No cough. No shortness of breath. The patient is complaining of severe pain in a scale of 1-10, 8-9/10, and it is throbbing and sometimes sharp, constant pain. The patient is unable to pinpoint exact site of the pain, mostly describes on the epigastric, right upper quadrant, on the back. Denies any diarrhea. Denies any nausea or vomiting. Denies any dysuria or frequency. Last hemodialysis on Tuesday. Status post change of PermCath recently. PAST MEDICAL HISTORY: Significant for longstanding hypertension; diabetes; coronary artery disease; hyperlipidemia; status post CABG; CHF; end-stage renal disease, on hemodialysis, two days a week, Tuesday and Tuesday. PAST SURGICAL HISTORY: Status post CABG and status post hysterectomy, status post left upper extremity AV fistula and status post change of PermCath this week. ALLERGIES: NO KNOWN DRUG ALLERGIES. SOCIAL HISTORY: Denies any smoking, alcohol, or drugs. PERSONAL HISTORY: She has a very supportive family, sisters and her daughter . CURRENT MEDICATIONS: Include as follows: Hydralazine 25 mg p.o. t.i.d., DuoNeb inhaler, aspirin 81 mg p.o. daily, Feosol 325 mg p.o. t.i.d., Flagyl 500 mg p.o. every 12 hours, Florastor 250 mg p.o. b.i.d., subcu heparin 5000 every 8 hours, Lantus 25 units subcu at bedtime, MiraLax, also amlodipine 10 mg daily, NovoLog 5 units subcu, Percocet 1 tablet p.o. every 6 hours, Protonix 40 mg IV daily, Renvela 2.4 g p.o. t.i.d., and metoprolol 25 mg p.o. daily. FAMILY HISTORY: Not significant. REVIEW OF OTHER SYSTEMS: Significant for right upper quadrant pain and epigastric pain and back pain. All other review of systems are reviewed and are negative. PHYSICAL EXAMINATION: VITAL SIGNS: As follows: Her blood pressure this evening 151/72, pulse 79, respirations 18, temperature 97.9, saturation 96%. Height 5 feet 5 inches and weight is 127 pounds. GENERAL: Mrs. Orozco is a 53-year-old middle-aged [place] female, moderately built, moderately nourished, not in acute distress. HEENT: Pupils normal, reactive to light and accommodation. Conjunctivae pink. Sclerae anicteric. Tongue is moist. Trachea is midline. LUNGS: Symmetric on both sides. Bilateral breath sounds present. Occasional left basal crackles present. CARDIOVASCULAR SYSTEM: [place] at the fifth intercostal space and midclavicular line. S1, S2 audible. No murmur, no gallop. ABDOMEN: Normal in appearance. Soft. Azzx-[id number] tenderness in the epigastric, right upper quadrant pain. No guarding. No rigidity. No hepatosplenomegaly, and no abdominal bruit. CENTRAL NERVOUS SYSTEM: The patient is alert, awake, oriented x3. Nonfocal neuro examination. Cranial nerves II through XII grossly intact. Sensory and motor system is within normal limits. EXTREMITIES: No cyanosis, no clubbing, no edema. LABORATORY DATA: Troponin 0.933, 0.81, and 0.784. AccuCheks this morning 148, 186, and 180, and procalcitonin 0.29. As of 06/22/2018, sodium 133, potassium 4.6, chloride 99, CO2 of 25, BUN 31, creatinine 4.4, GFR is 11, glucose is 294, and calcium 9.4. Total bili 0.5, AST 22, ALT less than 6, alkaline phosphatase 139. Total protein 8.1, albumin is 3.6, lipase is 205. WBC 8, hemoglobin 13, hematocrit is 40.2, and platelets 533. OTHER REPORTS: Chest x-ray as of 06/22/2018, impression: Right internal jugular approach dialysis catheter with distal tip extending into the SVC and cavoatrial junction and hypoinflation, mild pulmonary venous congestion, cardiomegaly. CT of the abdomen and pelvis as of 06/22/2018, impression: No pattern of acute abdominal or pelvic disease appreciable in the interval, distended smooth and thin-walled urinary bladder, mild bilateral pleural effusion persistent as described. MRI of the lumbar spine, impression: Asymmetric disk bulges are identified, greater at the left and right sides versus broad-based disk herniation at L4-L5 and L5-S1 resulting in mild left corinne-canal stenosis and mild left neural foraminal stenosis at L4-L5 and only left lateral recess stenosis and moderate left neural foraminal stenosis at L4-S1 respectively. No fracture or spondylolisthesis or suspicious matter signal change. The remainder of the central canal exclusive of levels described in impression 1 is widely patent. Thoracic spine MRI, no acute fracture, no disk herniation or significant disk bulge. The overall central body canal exit foramen appears adequate. Bilateral pleural effusions. IMPRESSION AND PLAN: In summary, Mrs. Orozco is a 53-year-old middle-aged [place] female with a history of longstanding hypertension; diabetes; coronary artery disease, status post coronary artery bypass graft and congestive heart failure; end-stage renal disease, on hemodialysis two times a week; was admitted with right upper quadrant pain and epigastric pain, constant, throbbing-like sensation, and unable to bear, multiple admissions to the hospital in the last 2 weeks. 1. End-stage renal disease. Continue hemodialysis, two times a week, Tuesday and Tuesday. 2. Hypertension. Blood pressure is stable. Continue her current medications; hydralazine, Norvasc, and metoprolol. Continue Renvela and continue ferrous sulfate. Continue Flagyl as per infectious disease recommendations. Check urine cultures again, and we will do bladder scan for any residual urine in the morning. We will follow with you. Thank you for allowing me to participate in your patient's care. Vasiliy Emery MD [facility] # [id number]
[2018-06-24] MEDS: (Novolog) Insulin Aspart, Recombinant 100 u/ml 10 ml vial SC SCH ×7 (07:38→21:59)
[2018-06-24] MEDS: Sevelamer Carb 2.4 gm/Packet PO SCH ×4 (09:00→16:58)
[2018-06-24] MEDS: Saccharomyces Boulardi 250 mg Cap PO SCH ×2 (09:41→17:01)
[2018-06-24] MEDS: POLYETHYLENE GLYCOL 3350 17 GM/Dose PACKET PO SCH ×3 (09:41→17:00)
[2018-06-24] MEDS: Metoprolol Succinate 25 mg XL Tab PO SCH (09:41)
--- NOTE | 2018-06-24 12:14 | CP.PCM.PN ---
Subjective - Date & Time of Evaluation Date of Evaluation: 06/24/18 Time of Evaluation: 12:11 - Subjective Subjective: COVERING DR L[address] Pain is somewhat better now wrapping around from lower back, right flank pain. Patient is eating solid food presently. CT SCan reviewed and shows no intraabdominal pathology. MRI of Thoracic spine negative and Lumbar shows L4-L5 disc disease with possible herniation L>R side. Objective - Vital Signs/Intake and Output Vital Signs (last 24 hours): Temp Pulse Resp BP Pulse Ox 97.6 F 81 20 155/78 H 97 06/24/18 08:00 06/24/18 08:00 06/24/18 08:00 06/24/18 08:00 06/24/18 08:00 Intake and Output: 06/24/18 06/24/18 06:59 18:59 Intake Total 300 240 Balance 300 240 - Medications Medications: Current Medications Albuterol/Ipratropium (Duoneb 3 Mg/0.5 Mg (3 Ml) Ud) 3 ml INH RQ6 [facility] Last Admin: 06/24/18 07:40 Dose: Not Given Amlodipine Besylate (Norvasc) 10 mg PO DAILY [facility] Last Admin: 06/24/18 09:41 Dose: Not Given Aspirin (Ecotrin) 81 mg PO DAILY [facility] Last Admin: 06/24/18 09:41 Dose: 81 mg Ferrous Sulfate (Feosol) 325 mg PO TID [facility] Last Admin: 06/24/18 09:40 Dose: 325 mg Heparin Sodium (Porcine) (Heparin) 5,000 units SC Q8 [facility] Last Admin: 06/24/18 06:47 Dose: 5,000 units Hydralazine HCl (Apresoline) 25 mg PO TID [facility] Last Admin: 06/24/18 09:40 Dose: Not Given Insulin Aspart (Novolog) 5 unit SC AC [facility] Last Admin: 06/24/18 11:39 Dose: Not Given Insulin Aspart (Novolog) 0 unit SC ACHS [facility]; Protocol Last Admin: 06/24/18 11:39 Dose: Not Given Insulin Glargine (Lantus) 25 unit SC HS [facility] Last Admin: 06/23/18 21:31 Dose: 25 units Metoprolol Succinate (Toprol Xl) 25 mg PO DAILY [facility] Last Admin: 06/24/18 09:41 Dose: Not Given Metronidazole (Flagyl) 500 mg PO Q12H [facility]; Protocol Last Admin: 06/24/18 00:17 Dose: 500 mg Oxycodone/Acetaminophen (Percocet 5/325 Mg Tab) 1 tab PO Q6H PRN PRN Reason: Pain, Mild (1-3) Stop: 06/25/18 19:21 Last Admin: 06/24/18 02:37 Dose: 1 tab Pantoprazole Sodium (Protonix Inj) 40 mg IVP DAILY [facility] Last Admin: 06/24/18 09:39 Dose: 40 mg Polyethylene Glycol (Miralax) 17 gm PO BID [facility] Last Admin: 06/24/18 09:57 Dose: Not Given Saccharomyces Boulardii (Florastor) 250 mg PO BID [facility] Last Admin: 06/24/18 09:41 Dose: 250 mg Sevelamer Carbonate (Renvela) 2.4 gm PO TIDCC [facility] Last Admin: 06/24/18 09:57 Dose: 2.4 gm - Labs Labs: 06/22/18 12:36 06/22/18 12:36 - Constitutional Appears: No Acute Distress - Head Exam Head Exam: ATRAUMATIC, NORMOCEPHALIC - Respiratory Exam Respiratory Exam: NORMAL BREATHING PATTERN - Cardiovascular Exam Cardiovascular Exam: REGULAR RHYTHM - GI/Abdominal Exam GI & Abdominal Exam: Soft, Tenderness, Normal Bowel Sounds. absent: Hernia, Mass, Rebound - Extremities Exam Extremities Exam: Normal Inspection Assessment and Plan (1) Lumbar disc disease with radiculopathy Assessment & Plan: as below Status: Acute (2) RUQ abdominal pain Assessment & Plan: Etiology of pain remains unclear. Patient has had extensive recent work up with EGD and Colonoscopy. Unusual for L4-5 disc herniation/bulging to give radicular pain to RUQ though could explain some of her other recent pain which appears to radiate to lower back and flank. Suggest orthopedic surgery consult vs pain management for epidural injection. Status: Acute
--- NOTE | 2018-06-24 13:59 | CP.PCM.PN ---
Subjective - Date & Time of Evaluation Date of Evaluation: 06/24/18 Time of Evaluation: 12:00 - Subjective Subjective: severe low back pain +herniated disc GI input well appreciated Objective - Vital Signs/Intake and Output Vital Signs (last 24 hours): Temp Pulse Resp BP Pulse Ox 97.6 F 81 20 155/78 H 97 06/24/18 08:00 06/24/18 08:00 06/24/18 08:00 06/24/18 08:00 06/24/18 08:00 Intake and Output: 06/24/18 06/24/18 06:59 18:59 Intake Total 300 240 Balance 300 240 - Medications Medications: Current Medications Albuterol/Ipratropium (Duoneb 3 Mg/0.5 Mg (3 Ml) Ud) 3 ml INH RQ6 [facility] Last Admin: 06/24/18 07:40 Dose: Not Given Amlodipine Besylate (Norvasc) 10 mg PO DAILY [facility] Last Admin: 06/24/18 09:41 Dose: Not Given Aspirin (Ecotrin) 81 mg PO DAILY [facility] Last Admin: 06/24/18 09:41 Dose: 81 mg Ferrous Sulfate (Feosol) 325 mg PO TID [facility] Last Admin: 06/24/18 13:49 Dose: Not Given Heparin Sodium (Porcine) (Heparin) 5,000 units SC Q8 [facility] Last Admin: 06/24/18 13:49 Dose: Not Given Hydralazine HCl (Apresoline) 25 mg PO TID [facility] Last Admin: 06/24/18 13:49 Dose: Not Given Insulin Aspart (Novolog) 5 unit SC AC [facility] Last Admin: 06/24/18 11:39 Dose: Not Given Insulin Aspart (Novolog) 0 unit SC ACHS [facility]; Protocol Last Admin: 06/24/18 11:39 Dose: Not Given Insulin Glargine (Lantus) 25 unit SC HS [facility] Last Admin: 06/23/18 21:31 Dose: 25 units Metoprolol Succinate (Toprol Xl) 25 mg PO DAILY [facility] Last Admin: 06/24/18 09:41 Dose: Not Given Metronidazole (Flagyl) 500 mg PO Q12H [facility]; Protocol Last Admin: 06/24/18 12:29 Dose: 500 mg Oxycodone/Acetaminophen (Percocet 5/325 Mg Tab) 1 tab PO Q6H PRN PRN Reason: Pain, Mild (1-3) Stop: 06/25/18 19:21 Last Admin: 06/24/18 12:00 Dose: 1 tab Pantoprazole Sodium (Protonix Inj) 40 mg IVP DAILY [facility] Last Admin: 06/24/18 09:39 Dose: 40 mg Polyethylene Glycol (Miralax) 17 gm PO BID [facility] Last Admin: 06/24/18 09:57 Dose: Not Given Saccharomyces Boulardii (Florastor) 250 mg PO BID [facility] Last Admin: 06/24/18 09:41 Dose: 250 mg Sevelamer Carbonate (Renvela) 2.4 gm PO TIDCC [facility] Last Admin: 06/24/18 12:29 Dose: 2.4 gm - Labs Labs: 06/22/18 12:36 06/22/18 12:36 - Constitutional Appears: Agitated - Head Exam Head Exam: NORMAL INSPECTION - Eye Exam Eye Exam: Scleral icterus - Neck Exam Neck Exam: Full ROM - Respiratory Exam Respiratory Exam: NORMAL BREATHING PATTERN - Cardiovascular Exam Cardiovascular Exam: REGULAR RHYTHM - GI/Abdominal Exam GI & Abdominal Exam: Soft - Extremities Exam Extremities Exam: absent: Pedal Edema - Back Exam Back Exam: paraspinal tenderness, vertebral tenderness - Neurological Exam Neurological Exam: Alert, Awake Assessment and Plan - Assessment and Plan (Free Text) Assessment: Abdominal pain Lumbar radiculopathy CAD ESRD T2dm Asthma HTN Plan: Pain meds Neuro consult HD
--- NOTE | 2018-06-24 14:42 | CP.PCM.PN ---
Subjective - Date & Time of Evaluation Date of Evaluation: 06/24/18 Time of Evaluation: 14:42 - Subjective Subjective: pt is seen and examined, follow up consult is dictated #[id number] seen in hd,uf 1.4 lit Objective - Vital Signs/Intake and Output Vital Signs (last 24 hours): Temp Pulse Resp BP Pulse Ox 97.6 F 81 20 155/78 H 97 06/24/18 08:00 06/24/18 08:00 06/24/18 08:00 06/24/18 08:00 06/24/18 08:00 Intake and Output: 06/24/18 06/24/18 06:59 18:59 Intake Total 300 240 Balance 300 240 - Medications Medications: Current Medications Albuterol/Ipratropium (Duoneb 3 Mg/0.5 Mg (3 Ml) Ud) 3 ml INH RQ6 [facility] Last Admin: 06/24/18 13:35 Dose: Not Given Amlodipine Besylate (Norvasc) 10 mg PO DAILY [facility] Last Admin: 06/24/18 09:41 Dose: Not Given Aspirin (Ecotrin) 81 mg PO DAILY [facility] Last Admin: 06/24/18 09:41 Dose: 81 mg Ferrous Sulfate (Feosol) 325 mg PO TID [facility] Last Admin: 06/24/18 13:49 Dose: Not Given Heparin Sodium (Porcine) (Heparin) 5,000 units SC Q8 [facility] Last Admin: 06/24/18 13:49 Dose: Not Given Hydralazine HCl (Apresoline) 25 mg PO TID [facility] Last Admin: 06/24/18 13:49 Dose: Not Given Insulin Aspart (Novolog) 5 unit SC AC [facility] Last Admin: 06/24/18 11:39 Dose: Not Given Insulin Aspart (Novolog) 0 unit SC ACHS [facility]; Protocol Last Admin: 06/24/18 11:39 Dose: Not Given Insulin Glargine (Lantus) 25 unit SC HS [facility] Last Admin: 06/23/18 21:31 Dose: 25 units Metoprolol Succinate (Toprol Xl) 25 mg PO DAILY [facility] Last Admin: 06/24/18 09:41 Dose: Not Given Metronidazole (Flagyl) 500 mg PO Q12H [facility]; Protocol Last Admin: 06/24/18 12:29 Dose: 500 mg Oxycodone/Acetaminophen (Percocet 5/325 Mg Tab) 1 tab PO Q6H PRN PRN Reason: Pain, Mild (1-3) Stop: 06/25/18 19:21 Last Admin: 06/24/18 12:00 Dose: 1 tab Pantoprazole Sodium (Protonix Inj) 40 mg IVP DAILY [facility] Last Admin: 06/24/18 09:39 Dose: 40 mg Polyethylene Glycol (Miralax) 17 gm PO BID [facility] Last Admin: 06/24/18 09:57 Dose: Not Given Saccharomyces Boulardii (Florastor) 250 mg PO BID [facility] Last Admin: 06/24/18 09:41 Dose: 250 mg Sevelamer Carbonate (Renvela) 2.4 gm PO TIDCC [facility] Last Admin: 06/24/18 12:29 Dose: 2.4 gm - Labs Labs: 06/22/18 12:36 06/22/18 12:36
--- NOTE | 2018-06-24 18:40 | CARD ---
APPROVED REPORT Date of service: 06/22/2018 EKG Measurement Heart [id number] <Conclusion> Normal sinus rhythm with sinus arrhythmia Poor R wave progression ST & T wave abnormality, consider lateral ischemia but, still nonspecific. Abnormal ECG
[2018-06-24] MEDS: (Lantus) Insulin Glargine, Recombinant SC SCH (21:34)
[2018-06-25] MEDS: Oxycodone/Acetaminophen 5/325 mg Tab PO PRN ×2 (00:35→09:39)
[2018-06-25] MEDS: Albuterol-Ipratrop 3 mg / 0.5 (3 ml) UD INH SCH ×3 (01:32→13:45)
--- NOTE | 2018-06-25 03:37 | PN ---
DATE: 06/24/2018 LOCATION: Patient is located in room 360, Bed B. REQUESTING PHYSICIAN: Carlos Haddad MD REASON FOR FOLLOWUP: Endstage renal disease condition with hemodialysis. SUBJECTIVE: Mrs. Orozco is a 53-year-old middle-aged [place]ag[place] female with the past medical history significant for longstanding hypertension, diabetes, CHF, coronary artery disease, status post CABG, end-stage renal disease on hemodialysis two times a week Tuesday and Tuesday, was admitted with the chief complaint of persistent back pain, epigastric and right upper quadrant pain. The patient was seen and examined during dialysis today. The ultrafiltration goal is about 1 L. No nausea. No vomiting. No diarrhea. No fever. No cough. No shortness of breath. PHYSICAL EXAMINATION: VITAL SIGNS: Blood pressure 128/67, pulse 86, respirations 17, temperature 97.7, saturation 100%. Height 5 feet and 5 inches. Weight is 120 pounds. HEENT: Mrs. Orozco is a 53-year-old middle-aged female moderately built, moderately nourished, not in acute distress. Pupils normal and reactive to light and accommodation. Conjunctivae pink. Sclerae anicteric. Tongue is moist. Trachea is midline. Poor vision. No thyroid enlargement. LUNGS: Symmetric on both sides. Bilateral breath sounds present. Occasional basal crackles present. CVS: [place] of the fifth intercostal space midclavicular area. S1 and S2 audible. No murmur or gallops. ABDOMEN: Normal in appearance. Soft and tympanitic. No guarding. No hepatosplenomegaly. 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 Sensory and motor system is within normal limits. EXTREMITIES: No cyanosis. No clubbing. No edema. MEDICATIONS: Include as follows, hydralazine 25 mg p.o. t.i.d. DuoNeb inhaler, aspirin 81 mg daily, Feosol 325 mg p.o. t.i.d., Flagyl 500 mg p.o. every 12 hours, Flostar, heparin 5000 units subcutaneous every 8 hours and heparin 3500 units in the Permcath three times a week and Lantus 25 units subcu at bedtime, MiraLax 17 g p.o. b.i.d., Norvasc 10 mg daily, Percocet one tablet every 6 hours p.r.n., Renvela 2.4 g p.o. t.i.d., Protonix 40 mg IV daily and Toprol XL 25 mg p.o. daily. LABORATORY DATA: No new labs available. Accu-Cheks 92, 75, 184 and 85. ASSESSMENT AND PLAN: In summary Mrs. Orozco is a 53-year-old middle-aged [place]ag[place] female with a history of hypertension, diabetes, hyperlipidemia, coronary artery disease, status post coronary artery bypass grafting, end-stage renal disease, was admitted with back pain, right upper quadrant and epigastric pain, on hemodialysis two times a week. 1. End-stage renal disease, continue hemodialysis two times a week, Tuesday and Tuesday. 2. Hypertension. 3. Diabetes. 4. Coronary artery disease, status post coronary artery bypass grafting. 5. Back pain and right upper quadrant and epigastric pain most likely secondary to degenerative joint disease and also rule out secondary to herniated disk L4-L5 and L5-S1. Consider urology evaluation and physical therapy. We will follow with you. Thank you for allowing me to participate in your patient's care. Consider orthopedic evaluation also. The patient underwent hemodialysis today and ultrafiltration about 1.4 L. Vasiliy Emery MD
[2018-06-25] MEDS: (Novolog) Insulin Aspart, Recombinant 100 u/ml 10 ml vial SC SCH ×7 (08:03→21:45)
[2018-06-25] MEDS: Sevelamer Carb 2.4 gm/Packet PO SCH ×3 (08:54→17:17)
--- NOTE | 2018-06-25 08:55 | CP.PCM.PN ---
Subjective - Date & Time of Evaluation Date of Evaluation: 06/23/18 Time of Evaluation: 09:00 - Subjective Subjective: intractable fleeting abdominal pain back pain +renal trops Objective - Vital Signs/Intake and Output Vital Signs (last 24 hours): Temp Pulse Resp BP Pulse Ox 97.2 F L 93 H 20 117/73 95 06/25/18 07:42 06/25/18 07:42 06/25/18 07:42 06/25/18 07:42 06/25/18 07:42 Intake and Output: 06/25/18 06/25/18 06:59 18:59 Intake Total 300 200 Balance 300 200 - Medications Medications: Current Medications Albuterol/Ipratropium (Duoneb 3 Mg/0.5 Mg (3 Ml) Ud) 3 ml INH RQ6 [facility] Last Admin: 06/25/18 08:00 Dose: 3 ml Amlodipine Besylate (Norvasc) 10 mg PO DAILY [facility] Last Admin: 06/24/18 09:41 Dose: Not Given Aspirin (Ecotrin) 81 mg PO DAILY [facility] Last Admin: 06/24/18 09:41 Dose: 81 mg Ferrous Sulfate (Feosol) 325 mg PO TID [facility] Last Admin: 06/24/18 17:01 Dose: 325 mg Heparin Sodium (Porcine) (Heparin) 5,000 units SC Q8 [facility] Last Admin: 06/25/18 06:50 Dose: 5,000 units Heparin Sodium (Porcine) (Heparin) 3,700 units IVP TTS [facility] Stop: 07/01/18 23:00 Last Admin: 06/24/18 16:36 Dose: 3,700 units Hydralazine HCl (Apresoline) 25 mg PO TID [facility] Last Admin: 06/24/18 17:01 Dose: 25 mg Insulin Aspart (Novolog) 5 unit SC AC [facility] Last Admin: 06/25/18 08:03 Dose: Not Given Insulin Aspart (Novolog) 0 unit SC ACHS [facility]; Protocol Last Admin: 06/25/18 08:03 Dose: Not Given Insulin Glargine (Lantus) 25 unit SC HS [facility] Last Admin: 06/24/18 21:34 Dose: 25 units Metoprolol Succinate (Toprol Xl) 25 mg PO DAILY [facility] Last Admin: 06/24/18 09:41 Dose: Not Given Metronidazole (Flagyl) 500 mg PO Q12H [facility]; Protocol Last Admin: 06/25/18 00:35 Dose: 500 mg Oxycodone/Acetaminophen (Percocet 5/325 Mg Tab) 1 tab PO Q6H PRN PRN Reason: Pain, Mild (1-3) Stop: 06/25/18 19:21 Last Admin: 06/25/18 00:35 Dose: 1 tab Pantoprazole Sodium (Protonix Inj) 40 mg IVP DAILY [facility] Last Admin: 06/24/18 09:39 Dose: 40 mg Polyethylene Glycol (Miralax) 17 gm PO BID [facility] Last Admin: 06/24/18 17:00 Dose: 17 gm Saccharomyces Boulardii (Florastor) 250 mg PO BID [facility] Last Admin: 06/24/18 17:01 Dose: 250 mg Sevelamer Carbonate (Renvela) 2.4 gm PO TIDCC [facility] Last Admin: 06/24/18 16:58 Dose: 2.4 gm - Labs Labs: 06/22/18 12:36 06/22/18 12:36 - Constitutional Appears: Chronically Ill - Head Exam Head Exam: NORMAL INSPECTION - Eye Exam Eye Exam: absent: Scleral icterus - Neck Exam Neck Exam: Full ROM - Respiratory Exam Respiratory Exam: NORMAL BREATHING PATTERN - Cardiovascular Exam Cardiovascular Exam: REGULAR RHYTHM - GI/Abdominal Exam GI & Abdominal Exam: Soft - Extremities Exam Extremities Exam: Calf Tenderness, Pedal Edema - Neurological Exam Neurological Exam: Alert Assessment and Plan - Assessment and Plan (Free Text) Assessment: Intractable abdominal pain ESRD on HD T2dm CAD HTN Asthma Plan: GI/ ID on board W/u in progress Pain meds HD
[2018-06-25] MEDS: Saccharomyces Boulardi 250 mg Cap PO SCH ×2 (09:33→17:17)
[2018-06-25] MEDS: POLYETHYLENE GLYCOL 3350 17 GM/Dose PACKET PO SCH ×2 (09:33→09:48)
[2018-06-25] MEDS: Metoprolol Succinate 25 mg XL Tab PO SCH (09:33)
--- NOTE | 2018-06-25 12:10 | CP.PCM.PN ---
Subjective - Date & Time of Evaluation Date of Evaluation: 06/25/18 Time of Evaluation: 12:07 - Subjective Subjective: COVERING DR L[address] No change in pain. Neurology consult requested. Pain more lower right side and flank now. tolerating diet at bedside. Objective - Vital Signs/Intake and Output Vital Signs (last 24 hours): Temp Pulse Resp BP Pulse Ox 97.2 F L 93 H 20 117/73 95 06/25/18 07:42 06/25/18 07:42 06/25/18 07:42 06/25/18 07:42 06/25/18 07:42 Intake and Output: 06/25/18 06/25/18 06:59 18:59 Intake Total 300 200 Balance 300 200 - Medications Medications: Current Medications Albuterol/Ipratropium (Duoneb 3 Mg/0.5 Mg (3 Ml) Ud) 3 ml INH RQ6 [facility] Last Admin: 06/25/18 08:00 Dose: 3 ml Amlodipine Besylate (Norvasc) 10 mg PO DAILY [facility] Last Admin: 06/25/18 09:33 Dose: 10 mg Aspirin (Ecotrin) 81 mg PO DAILY [facility] Last Admin: 06/25/18 09:33 Dose: 81 mg Ferrous Sulfate (Feosol) 325 mg PO TID [facility] Last Admin: 06/25/18 09:33 Dose: 325 mg Heparin Sodium (Porcine) (Heparin) 5,000 units SC Q8 [facility] Last Admin: 06/25/18 06:50 Dose: 5,000 units Heparin Sodium (Porcine) (Heparin) 3,700 units IVP TTS [facility] Stop: 07/01/18 23:00 Last Admin: 06/24/18 16:36 Dose: 3,700 units Hydralazine HCl (Apresoline) 25 mg PO TID [facility] Last Admin: 06/25/18 09:33 Dose: 25 mg Insulin Aspart (Novolog) 5 unit SC AC [facility] Last Admin: 06/25/18 08:03 Dose: Not Given Insulin Aspart (Novolog) 0 unit SC ACHS [facility]; Protocol Last Admin: 06/25/18 08:03 Dose: Not Given Insulin Glargine (Lantus) 25 unit SC HS [facility] Last Admin: 06/24/18 21:34 Dose: 25 units Lactulose (Enulose) 20 gm PO BID [facility] Last Admin: 06/25/18 10:06 Dose: 20 gm Metoprolol Succinate (Toprol Xl) 25 mg PO DAILY [facility] Last Admin: 06/25/18 09:33 Dose: 25 mg Metronidazole (Flagyl) 500 mg PO Q12H [facility]; Protocol Last Admin: 06/25/18 00:35 Dose: 500 mg Ondansetron HCl (Zofran Inj) 4 mg IVP Q6 PRN PRN Reason: Nausea/Vomiting Last Admin: 06/25/18 10:42 Dose: 4 mg Oxycodone/Acetaminophen (Percocet 5/325 Mg Tab) 1 tab PO Q6H PRN PRN Reason: Pain, Mild (1-3) Stop: 06/25/18 19:21 Last Admin: 06/25/18 09:39 Dose: 1 tab Pantoprazole Sodium (Protonix Inj) 40 mg IVP DAILY [facility] Last Admin: 06/25/18 09:33 Dose: 40 mg Saccharomyces Boulardii (Florastor) 250 mg PO BID [facility] Last Admin: 06/25/18 09:33 Dose: 250 mg Sevelamer Carbonate (Renvela) 2.4 gm PO TIDCC [facility] Last Admin: 06/25/18 08:54 Dose: 2.4 gm - Labs Labs: 06/22/18 12:36 06/22/18 12:36 - Constitutional Appears: No Acute Distress - Head Exam Head Exam: ATRAUMATIC, NORMOCEPHALIC - Eye Exam Eye Exam: EOMI, PERRL - Respiratory Exam Respiratory Exam: NORMAL BREATHING PATTERN - Cardiovascular Exam Cardiovascular Exam: REGULAR RHYTHM, +S1 - GI/Abdominal Exam GI & Abdominal Exam: Soft, Normal Bowel Sounds. absent: Distended, Tenderness, Mass, Rebound - Extremities Exam Extremities Exam: Normal Inspection Assessment and Plan (1) Lumbar disc disease with radiculopathy Assessment & Plan: Awaiting Neurology consultation and possible Epidural injection Status: Acute (2) RUQ abdominal pain Assessment & Plan: Patients migratory pain symptoms appear to be related to L/S disc disease/herniation. No further GI work up at this time. Status: Acute
--- NOTE | 2018-06-25 16:16 | CP.PCM.PN ---
Subjective - Date & Time of Evaluation Date of Evaluation: 06/25/18 Time of Evaluation: 07:00 - Subjective Subjective: pain persists work up in progress Objective - Vital Signs/Intake and Output Vital Signs (last 24 hours): Temp Pulse Resp BP Pulse Ox 97.2 F L 91 H 18 113/64 95 06/25/18 07:42 06/25/18 14:29 06/25/18 14:29 06/25/18 14:29 06/25/18 07:42 Intake and Output: 06/25/18 06/25/18 06:59 18:59 Intake Total 300 560 Balance 300 560 - Medications Medications: Current Medications Albuterol/Ipratropium (Duoneb 3 Mg/0.5 Mg (3 Ml) Ud) 3 ml INH RQ6 [facility] Last Admin: 06/25/18 13:45 Dose: 3 ml Amlodipine Besylate (Norvasc) 10 mg PO DAILY [facility] Last Admin: 06/25/18 09:33 Dose: 10 mg Aspirin (Ecotrin) 81 mg PO DAILY [facility] Last Admin: 06/25/18 09:33 Dose: 81 mg Ferrous Sulfate (Feosol) 325 mg PO TID [facility] Last Admin: 06/25/18 14:21 Dose: 325 mg Heparin Sodium (Porcine) (Heparin) 5,000 units SC Q8 [facility] Last Admin: 06/25/18 14:21 Dose: 5,000 units Heparin Sodium (Porcine) (Heparin) 3,700 units IVP TTS [facility] Stop: 07/01/18 23:00 Last Admin: 06/24/18 16:36 Dose: 3,700 units Hydralazine HCl (Apresoline) 25 mg PO TID [facility] Last Admin: 06/25/18 14:21 Dose: 25 mg Insulin Aspart (Novolog) 5 unit SC AC [facility] Last Admin: 06/25/18 12:17 Dose: 5 units Insulin Aspart (Novolog) 0 unit SC ACHS [facility]; Protocol Last Admin: 06/25/18 12:18 Dose: Not Given Insulin Glargine (Lantus) 25 unit SC HS [facility] Last Admin: 06/24/18 21:34 Dose: 25 units Lactulose (Enulose) 20 gm PO BID [facility] Last Admin: 06/25/18 10:06 Dose: 20 gm Metoprolol Succinate (Toprol Xl) 25 mg PO DAILY [facility] Last Admin: 06/25/18 09:33 Dose: 25 mg Metronidazole (Flagyl) 500 mg PO Q12H [facility]; Protocol Last Admin: 06/25/18 12:09 Dose: 500 mg Ondansetron HCl (Zofran Inj) 4 mg IVP Q6 PRN PRN Reason: Nausea/Vomiting Last Admin: 06/25/18 10:42 Dose: 4 mg Oxycodone/Acetaminophen (Percocet 5/325 Mg Tab) 1 tab PO Q6H PRN PRN Reason: Pain, Mild (1-3) Stop: 06/25/18 19:21 Last Admin: 06/25/18 09:39 Dose: 1 tab Pantoprazole Sodium (Protonix Inj) 40 mg IVP DAILY [facility] Last Admin: 06/25/18 09:33 Dose: 40 mg Saccharomyces Boulardii (Florastor) 250 mg PO BID [facility] Last Admin: 06/25/18 09:33 Dose: 250 mg Sevelamer Carbonate (Renvela) 2.4 gm PO TIDCC [facility] Last Admin: 06/25/18 12:09 Dose: 2.4 gm - Labs Labs: 06/22/18 12:36 06/22/18 12:36 - Constitutional Appears: Non-toxic, Chronically Ill - Head Exam Head Exam: NORMOCEPHALIC - Eye Exam Eye Exam: absent: Scleral icterus - ENT Exam ENT Exam: Mucous Membranes Dry - Neck Exam Neck Exam: absent: Lymphadenopathy - Respiratory Exam Respiratory Exam: Decreased Breath Sounds - Cardiovascular Exam Cardiovascular Exam: REGULAR RHYTHM - GI/Abdominal Exam GI & Abdominal Exam: Distended, Soft - Rectal Exam Rectal Exam: Deferred - Exam Exam: NORMAL INSPECTION Assessment and Plan (1) CKD (chronic kidney disease) Status: Acute (2) Intractable abdominal pain Status: Acute - Assessment and Plan (Free Text) Assessment: consider MRI spine, neuro eval antibioltic rx on hold
[2018-06-25] MEDS: (Lantus) Insulin Glargine, Recombinant SC SCH (21:44)
[2018-06-26] MEDS: Albuterol-Ipratrop 3 mg / 0.5 (3 ml) UD INH SCH ×5 (02:13→20:15)
--- NOTE | 2018-06-26 07:17 | CP.PCM.CON ---
History of Present Illness - History of Present Illness History of Present Illness: CONSULTATION DICTATED EXAM LUMBAR RADICULOPLEXOPATHY PROBABLY SEC TO DIABETES DIABETIC CONTROL LYRICA ON TITRATION PT EMG AND NCV AN OP Past Patient History - Infectious Disease Hx of Infectious Diseases: None - Past Medical History & Family History Past Medical History?: Yes - Past Social History Smoking Status: Never Smoked - CARDIAC Hx Hypercholesterolemia: Yes Hx Hypertension: Yes - PULMONARY Hx Chronic Obstructive Pulmonary Disease (COPD): Yes Hx Pulmonary Embolism: No - NEUROLOGICAL Hx Neurological Disorder: Yes Hx Syncope: Yes - HEENT Hx HEENT Problems: No - RENAL Hx Chronic Kidney Disease: Yes (esrd) Hx Dialysis: Yes Type of Dialysis Access: right subclavian permacath Date of Last Dialysis Treatment: 06/21/18 Hx Renal Failure: Yes - ENDOCRINE/METABOLIC Hx Endocrine Disorders: Yes Hx Diabetes Mellitus Type 1: Yes - HEMATOLOGICAL/ONCOLOGICAL Hx Anemia: Yes Hx Blood Transfusions: Yes Hx Blood Transfusion Reaction: No - INTEGUMENTARY Hx Dermatological Problems: No - MUSCULOSKELETAL/RHEUMATOLOGICAL Hx Arthritis: Yes (KNEE; BACK) Hx Falls: No Hx Herniated Disk: Yes - GASTROINTESTINAL Hx Gastrointestinal Disorders: Yes Hx Gastroesophageal Reflux: Yes - GENITOURINARY/GYNECOLOGICAL Hx Genitourinary Disorders: No - PSYCHIATRIC Hx Substance Use: No - SURGICAL HISTORY Hx Arteriovenous Shunt: Yes Hx Coronary Artery Bypass Graft: Yes (09/19) Hx Hysterectomy: Yes (2015) - ANESTHESIA Hx Anesthesia: Yes Hx Anesthesia Reactions: No Hx Malignant Hyperthermia: No Meds Allergies/Adverse Reactions: Allergies Allergy/AdvReac Type Severity Reaction Status Date / Time No Known Allergies Allergy Verified 06/22/18 11:50 - Medications Medications: Current Medications Albuterol/Ipratropium (Duoneb 3 Mg/0.5 Mg (3 Ml) Ud) 3 ml INH RQ6 [facility] Last Admin: 06/26/18 02:13 Dose: Not Given Amlodipine Besylate (Norvasc) 10 mg PO DAILY [facility] Last Admin: 06/25/18 09:33 Dose: 10 mg Aspirin (Ecotrin) 81 mg PO DAILY [facility] Last Admin: 06/25/18 09:33 Dose: 81 mg Ferrous Sulfate (Feosol) 325 mg PO TID [facility] Last Admin: 06/25/18 17:17 Dose: 325 mg Heparin Sodium (Porcine) (Heparin) 3,700 units IVP TTS [facility] Stop: 07/01/18 23:00 Last Admin: 06/24/18 16:36 Dose: 3,700 units Hydralazine HCl (Apresoline) 25 mg PO TID [facility] Last Admin: 06/25/18 18:00 Dose: 25 mg Insulin Aspart (Novolog) 5 unit SC AC [facility] Last Admin: 06/25/18 16:30 Dose: 5 units Insulin Aspart (Novolog) 0 unit SC ACHS [facility]; Protocol Last Admin: 06/25/18 21:45 Dose: Not Given Insulin Glargine (Lantus) 25 unit SC HS [facility] Last Admin: 06/25/18 21:44 Dose: 25 units Lactulose (Enulose) 20 gm PO BID [facility] Last Admin: 06/25/18 18:00 Dose: 20 gm Metoprolol Succinate (Toprol Xl) 25 mg PO DAILY [facility] Last Admin: 06/25/18 09:33 Dose: 25 mg Metronidazole (Flagyl) 500 mg PO Q12H [facility]; Protocol Last Admin: 06/25/18 12:09 Dose: 500 mg Ondansetron HCl (Zofran Inj) 4 mg IVP Q6 PRN PRN Reason: Nausea/Vomiting Last Admin: 06/25/18 10:42 Dose: 4 mg Pantoprazole Sodium (Protonix Inj) 40 mg IVP DAILY [facility] Last Admin: 06/25/18 09:33 Dose: 40 mg Saccharomyces Boulardii (Florastor) 250 mg PO BID [facility] Last Admin: 06/25/18 17:17 Dose: 250 mg Sevelamer Carbonate (Renvela) 2.4 gm PO TIDCC [facility] Last Admin: 06/25/18 17:17 Dose: 2.4 gm Results - Vital Signs Recent Vital Signs: Last Vital Signs Temp 97.8 F 06/26/18 00:00 Pulse 82 06/26/18 00:00 Resp 20 06/26/18 00:00 BP 143/72 06/26/18 00:00 Pulse Ox 99 06/26/18 00:00 - Labs Result Diagrams: 06/22/18 12:36 06/22/18 12:36 Labs: Laboratory Results - last 24 hr 06/25/18 06/25/18 06/25/18 07:17 11:47 16:26 POC Glucose (mg/dL) 89 173 H 233 H 06/25/18 21:34 POC Glucose (mg/dL) 171 H
[2018-06-26] MEDS: (Novolog) Insulin Aspart, Recombinant 100 u/ml 10 ml vial SC SCH ×7 (07:51→21:49)
[2018-06-26 08:00] LABS: FREE T4 1.17 ng/dL (0.78-2.19)
[2018-06-26] MEDS: Sevelamer Carb 2.4 gm/Packet PO SCH ×3 (08:14→17:53)
--- NOTE | 2018-06-26 08:48 | CP.PCM.PN ---
Subjective - Date & Time of Evaluation Date of Evaluation: 06/26/18 Time of Evaluation: 08:45 - Subjective Subjective: Patient continues to complain of right-sided abdominal pain, now involving the back as well. She vomited once yesterday but has not vomited today. Her appetite is poor. She had a bowel movement yesterday which was the first in several days. Objective - Vital Signs/Intake and Output Vital Signs (last 24 hours): Temp Pulse Resp BP Pulse Ox 97.9 F 92 H 20 153/95 H 100 06/26/18 07:00 06/26/18 07:00 06/26/18 07:00 06/26/18 07:00 06/26/18 07:00 Intake and Output: 06/26/18 06/26/18 06:59 18:59 Intake Total 250 Balance 250 - Medications Medications: Current Medications Albuterol/Ipratropium (Duoneb 3 Mg/0.5 Mg (3 Ml) Ud) 3 ml INH RQ6 [facility] Last Admin: 06/26/18 02:13 Dose: Not Given Amlodipine Besylate (Norvasc) 10 mg PO DAILY [facility] Last Admin: 06/25/18 09:33 Dose: 10 mg Aspirin (Ecotrin) 81 mg PO DAILY [facility] Last Admin: 06/25/18 09:33 Dose: 81 mg Ferrous Sulfate (Feosol) 325 mg PO TID [facility] Last Admin: 06/25/18 17:17 Dose: 325 mg Heparin Sodium (Porcine) (Heparin) 3,700 units IVP TTS [facility] Stop: 07/01/18 23:00 Last Admin: 06/24/18 16:36 Dose: 3,700 units Hydralazine HCl (Apresoline) 25 mg PO TID [facility] Last Admin: 06/25/18 18:00 Dose: 25 mg Insulin Aspart (Novolog) 5 unit SC AC [facility] Last Admin: 06/26/18 08:14 Dose: 5 units Insulin Aspart (Novolog) 0 unit SC ACHS [facility]; Protocol Last Admin: 06/26/18 07:51 Dose: Not Given Insulin Glargine (Lantus) 25 unit SC HS [facility] Last Admin: 06/25/18 21:44 Dose: 25 units Lactulose (Enulose) 20 gm PO BID [facility] Last Admin: 06/25/18 18:00 Dose: 20 gm Metoprolol Succinate (Toprol Xl) 25 mg PO DAILY [facility] Last Admin: 06/25/18 09:33 Dose: 25 mg Metronidazole (Flagyl) 500 mg PO Q12H [facility]; Protocol Last Admin: 06/26/18 00:10 Dose: Not Given Ondansetron HCl (Zofran Inj) 4 mg IVP Q6 PRN PRN Reason: Nausea/Vomiting Last Admin: 06/25/18 10:42 Dose: 4 mg Oxycodone HCl (Oxycodone Immediate Release Tab) 20 mg PO Q6 [facility] Pantoprazole Sodium (Protonix Inj) 40 mg IVP DAILY [facility] Last Admin: 06/25/18 09:33 Dose: 40 mg Pregabalin (Lyrica) 100 mg PO BID [facility] Saccharomyces Boulardii (Florastor) 250 mg PO BID [facility] Last Admin: 06/25/18 17:17 Dose: 250 mg Sevelamer Carbonate (Renvela) 2.4 gm PO TIDCC [facility] Last Admin: 06/26/18 08:14 Dose: 2.4 gm - Labs Labs: 06/22/18 12:36 06/22/18 12:36 - Constitutional Appears: No Acute Distress - Head Exam Head Exam: ATRAUMATIC, NORMOCEPHALIC - Eye Exam Eye Exam: EOMI, PERRL - Neck Exam Neck Exam: absent: Lymphadenopathy, Thyromegaly - Respiratory Exam Respiratory Exam: NORMAL BREATHING PATTERN. absent: Rales, Rhonchi, Wheezes - Cardiovascular Exam Cardiovascular Exam: REGULAR RHYTHM, +S1, +S2, Murmur. absent: Gallop, Rubs - GI/Abdominal Exam GI & Abdominal Exam: Soft, Normal Bowel Sounds. absent: Tenderness, Mass, Organomegaly - Rectal Exam Rectal Exam: Deferred - Extremities Exam Extremities Exam: absent: Calf Tenderness, Pedal Edema Assessment and Plan (1) RUQ abdominal pain Assessment & Plan: Pain has a radicular distribution. Patient was evaluated by neurologist, Dr. Duenas, who felt that patient has lumbar radiculoplexopathy, probably related to DM. He recommended treatment with Lyrica, physical therapy, and EMG and NCV as an outpatient. Will follow. L Status: Acute
[2018-06-26] MEDS: Metoprolol Succinate 25 mg XL Tab PO SCH (09:55)
[2018-06-26] MEDS: Saccharomyces Boulardi 250 mg Cap PO SCH ×2 (09:58→18:45)
[2018-06-26 11:47] LABS: BASO # 0.1 K/uL (0.0-0.2); BASO % 0.9 % (0.0-2.0); EOS # 0.2 K/uL (0.0-0.7); EOS % 2.1 % (0.0-4.0); HEMOGLOBIN 11.6 g/dL (11.0-16.0); LYMPH % 11.6 % (20.0-40.0); MEAN CELL VOLUME 78.6 fL (81.0-99.0); MEAN CORPUSCULAR HEMOGLOBIN 24.5 pg (27.0-31.0); MEAN CORPUSCULAR HGB CONC 31.2 g/dL (33.0-37.0); MEAN PLATELET VOLUME 7.5 fL (7.2-11.7); MONO # 0.5 K/uL (0.0-0.8); MONO % 5.3 % (0.0-10.0); NEUT # 6.9 K/uL (1.8-7.0); NEUT % 80.1 % (50.0-75.0); RBC 4.75 Mil/uL (3.80-5.20); RED CELL DISTRIBUTION WIDTH 18.6 % (11.5-14.5); WHITE BLOOD COUNT 8.6 K/uL (4.8-10.8)
[2018-06-26 11:54] LABS: INR 1.1; PROTHROMBIN TIME 12.2 SECONDS (9.7-12.2)
[2018-06-26 11:58] LABS: ALB/GLOB RATIO 0.8 (1.0-2.1); ALBUMIN 2.8 g/dL (3.5-5.0); CALCIUM 8.3 mg/dl (8.6-10.4)
[2018-06-26] MEDS ORDERED: oxyCODONE 20 mg ER Tab (oxyCONTIN) PO SCH (12:00)
[2018-06-26] MEDS: oxyCODONE 10 mg Immediate Release Tab PO SCH ×2 (12:04→18:49)
--- NOTE | 2018-06-26 15:47 | CP.PCM.PN ---
Subjective - Date & Time of Evaluation Date of Evaluation: 06/26/18 Time of Evaluation: 07:00 - Subjective Subjective: seen by neuro Objective - Vital Signs/Intake and Output Vital Signs (last 24 hours): Temp Pulse Resp BP Pulse Ox 97.5 F L 71 20 153/95 H 97 06/26/18 15:00 06/26/18 15:00 06/26/18 15:00 06/26/18 07:00 06/26/18 15:00 Intake and Output: 06/26/18 06/26/18 06:59 18:59 Intake Total 250 500 Balance 250 500 - Medications Medications: Current Medications Albuterol/Ipratropium (Duoneb 3 Mg/0.5 Mg (3 Ml) Ud) 3 ml INH RQ6 [facility] Last Admin: 06/26/18 13:40 Dose: Not Given Amlodipine Besylate (Norvasc) 10 mg PO DAILY [facility] Last Admin: 06/26/18 09:55 Dose: 10 mg Aspirin (Ecotrin) 81 mg PO DAILY [facility] Last Admin: 06/26/18 09:55 Dose: 81 mg Ferrous Sulfate (Feosol) 325 mg PO TID [facility] Last Admin: 06/26/18 14:03 Dose: 325 mg Heparin Sodium (Porcine) (Heparin) 3,700 units IVP TTS [facility] Stop: 07/01/18 23:00 Last Admin: 06/24/18 16:36 Dose: 3,700 units Hydralazine HCl (Apresoline) 25 mg PO TID [facility] Last Admin: 06/26/18 14:03 Dose: 25 mg Insulin Aspart (Novolog) 5 unit SC AC [facility] Last Admin: 06/26/18 11:58 Dose: 5 units Insulin Aspart (Novolog) 0 unit SC ACHS [facility]; Protocol Last Admin: 06/26/18 12:00 Dose: 2 units Insulin Glargine (Lantus) 25 unit SC HS [facility] Last Admin: 06/25/18 21:44 Dose: 25 units Lactulose (Enulose) 20 gm PO BID [facility] Last Admin: 06/26/18 10:03 Dose: Not Given Metoprolol Succinate (Toprol Xl) 25 mg PO DAILY [facility] Last Admin: 06/26/18 09:55 Dose: 25 mg Metronidazole (Flagyl) 500 mg PO Q12H [facility]; Protocol Last Admin: 06/26/18 11:57 Dose: 500 mg Ondansetron HCl (Zofran Inj) 4 mg IVP Q6 PRN PRN Reason: Nausea/Vomiting Last Admin: 06/25/18 10:42 Dose: 4 mg Oxycodone HCl (Oxycodone Immediate Release Tab) 20 mg PO Q6 [facility] Last Admin: 06/26/18 12:04 Dose: 20 mg Pantoprazole Sodium (Protonix Inj) 40 mg IVP DAILY [facility] Last Admin: 06/26/18 10:02 Dose: 40 mg Pregabalin (Lyrica) 100 mg PO BID [facility] Last Admin: 06/26/18 09:58 Dose: 100 mg Saccharomyces Boulardii (Florastor) 250 mg PO BID [facility] Last Admin: 06/26/18 09:58 Dose: 250 mg Sevelamer Carbonate (Renvela) 2.4 gm PO TIDCC [facility] Last Admin: 06/26/18 12:04 Dose: 2.4 gm - Labs Labs: 06/26/18 11:30 06/26/18 11:30 PT 12.2 SECONDS (9.7-12.2) 06/26/18 11:30 INR 1.1 06/26/18 11:30 - Constitutional Appears: Non-toxic, Chronically Ill - Head Exam Head Exam: NORMOCEPHALIC - Eye Exam Eye Exam: absent: Scleral icterus - ENT Exam ENT Exam: Mucous Membranes Dry - Neck Exam Neck Exam: absent: Lymphadenopathy - Respiratory Exam Respiratory Exam: Decreased Breath Sounds - Cardiovascular Exam Cardiovascular Exam: REGULAR RHYTHM - GI/Abdominal Exam GI & Abdominal Exam: Distended, Soft Assessment and Plan (1) CKD (chronic kidney disease) Status: Acute (2) Intractable abdominal pain Status: Acute - Assessment and Plan (Free Text) Assessment: neuro eval in progress
--- NOTE | 2018-06-26 18:02 | CON ---
DATE: 06/26/2018 ATTENDING PHYSICIAN: Carlos Haddad MD LOCATION: The patient's room number 360, bed 2. REASON FOR CONSULTATION: Intractable lower back pain. CHIEF COMPLAINT: The patient was brought into [facility] for the second time recently for her progressive lower back pain. From neurological point of view, I was called in to evaluate her for further management. HISTORY OF PRESENT ILLNESS: Ms. Michael Orozco is a 53-year-old right-handed female presenting with progressive lower back pain for the last 2 weeks which has been intensified at present. This has been started 2 months ago. Mostly localized over the right lumbar region, radiating to her right hip region. The pain also associating with tingling, numbness sensation of her both feet which has been presenting there for before. No history of bowel or bladder incontinence. No history of prior pain radiating across her belly. No history of neck pain. No history of headache. No history of visual or bulbar dysfunction. No history of fall. No history of straining at her back. PAST MEDICAL HISTORY: Insulin-dependent diabetes mellitus, hypertension, diabetic retinopathy, neuropathy, coronary artery disease status post CABG, dyslipidemia, chronic congestive heart failure, end-stage renal disease. PERSONAL HISTORY: Denies smoking or alcohol use. ALLERGIES: NO KNOWN ALLERGIES. REVIEW OF SYSTEMS: 12-point system being reviewed. From neuro, progressive lower back pain. MEDICATIONS: Apresoline, DuoNeb, Ecotrin, Enulose, Feosol, Flagyl, Florastor, Lantus insulin, amlodipine. PHYSICAL EXAMINATION: VITAL SIGNS: Blood pressure 143/72, mean artery pressure of 95, respiratory rate 18, temperature afebrile. NECK: Supple. No carotid bruits. HEART: Sounds regular. CHEST: Fair air entry. EXTREMITIES: No edema in legs. NEUROLOGIC: Mental status examination: She is awake, alert and or to person, place and time. Speech is clear. Naming, repetition,fluency, comprehension all within normal. Cranial nerve examination: Visual field intact. Pupil reactive to light. Extraocular movement normal. No nystagmus. No facial sensory deficit. No facial asymmetry. Hearing is normal. Tongue is midline. Good gag. Motor examination: On outstretched hand with eyes closed, sensory tremor noted. No asterixis. Significant distal muscle groups atrophy noted, more pronounced in the legs than her arms. Deep tendon reflexes absent throughout. Sensory examination: Hyperesthesia over L2, L3, L4 dermatome on the right side. No sensory level. Coordination: Xfmfbu-[id number] test is intact. The gait is deferred at this time. CONCLUSION: Upon reviewing her history and neurological examination, Ms. 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 However, this is complicated with her underlying end-stage renal disease as well. Other possible causes may be possible; however, if the pain is not under control with the current medication, we will work her up for further investigations for the lumbosacral radicular plexopathy. WORKUP: Her workup including MRI of the lumbosacral spine reported as mild foraminal stenosis on her left side over the L4-L5 and L5-S1 which is not consistent with her clinical finding. Thoracic spine also showed no acute pathology. BLOOD WORKUP: WBC 8, hemoglobin 13, hematocrit 42, platelet of 533. Sodium 133, potassium 4.6, chloride of 99, bicarbonate 25, BUN 31 and creatinine 4.4, glucose 186, ALT less than 6, alkaline phosphatase 139, troponin 0.784. Procalcitonin 0.29. RECOMMENDATIONS: 1. Lyrica is added. No narcotic is necessary. 2. Physical therapy should be initiated as early as possible. The patient blood workup as per the order. The patient will be followed while she is in the hospital. The patient should have electrodiagnostic studies which include the electromyelography and nerve conduction study which can be done as outpatient. Rio Duenas MD
--- NOTE | 2018-06-26 19:03 | CP.PCM.PN ---
Subjective - Date & Time of Evaluation Date of Evaluation: 06/26/18 Time of Evaluation: 19:03 - Subjective Subjective: pt is seen and examined, follow up consult is dictated #[id number] Objective - Vital Signs/Intake and Output Vital Signs (last 24 hours): Temp Pulse Resp BP Pulse Ox 97.5 F L 71 20 93/56 L 97 06/26/18 15:00 06/26/18 15:00 06/26/18 15:00 06/26/18 15:00 06/26/18 15:00 Intake and Output: 06/26/18 06/27/18 18:59 06:59 Intake Total 500 Balance 500 - Medications Medications: Current Medications Albuterol/Ipratropium (Duoneb 3 Mg/0.5 Mg (3 Ml) Ud) 3 ml INH RQ6 [facility] Last Admin: 06/26/18 13:40 Dose: Not Given Amlodipine Besylate (Norvasc) 10 mg PO DAILY [facility] Last Admin: 06/26/18 09:55 Dose: 10 mg Aspirin (Ecotrin) 81 mg PO DAILY [facility] Last Admin: 06/26/18 09:55 Dose: 81 mg Ferrous Sulfate (Feosol) 325 mg PO TID [facility] Last Admin: 06/26/18 18:44 Dose: 325 mg Heparin Sodium (Porcine) (Heparin) 3,700 units IVP TTS [facility] Stop: 07/01/18 23:00 Last Admin: 06/24/18 16:36 Dose: 3,700 units Hydralazine HCl (Apresoline) 25 mg PO TID [facility] Last Admin: 06/26/18 18:44 Dose: 25 mg Insulin Aspart (Novolog) 5 unit SC AC [facility] Last Admin: 06/26/18 17:10 Dose: Not Given Insulin Aspart (Novolog) 0 unit SC ACHS [facility]; Protocol Last Admin: 06/26/18 17:10 Dose: Not Given Insulin Glargine (Lantus) 25 unit SC HS [facility] Last Admin: 06/25/18 21:44 Dose: 25 units Lactulose (Enulose) 20 gm PO BID [facility] Last Admin: 06/26/18 18:49 Dose: 20 gm Metoprolol Succinate (Toprol Xl) 25 mg PO DAILY [facility] Last Admin: 06/26/18 09:55 Dose: 25 mg Metronidazole (Flagyl) 500 mg PO Q12H [facility]; Protocol Last Admin: 06/26/18 11:57 Dose: 500 mg Ondansetron HCl (Zofran Inj) 4 mg IVP Q6 PRN PRN Reason: Nausea/Vomiting Last Admin: 06/25/18 10:42 Dose: 4 mg Oxycodone HCl (Oxycodone Immediate Release Tab) 20 mg PO Q6 [facility] Last Admin: 06/26/18 18:49 Dose: 20 mg Pantoprazole Sodium (Protonix Inj) 40 mg IVP DAILY [facility] Last Admin: 06/26/18 10:02 Dose: 40 mg Pregabalin (Lyrica) 100 mg PO BID [facility] Last Admin: 06/26/18 18:47 Dose: 100 mg Saccharomyces Boulardii (Florastor) 250 mg PO BID [facility] Last Admin: 06/26/18 18:45 Dose: 250 mg Sevelamer Carbonate (Renvela) 2.4 gm PO TIDCC [facility] Last Admin: 06/26/18 17:53 Dose: 2.4 gm - Labs Labs: 06/26/18 11:30 06/26/18 11:30 PT 12.2 SECONDS (9.7-12.2) 06/26/18 11:30 INR 1.1 06/26/18 11:30
[2018-06-26] MEDS ORDERED: Sodium Chloride 0.9% 1,000 ML IV ONE (19:23)
[2018-06-26] MEDS ORDERED: oxyCODONE 10 mg Immediate Release Tab PO PRN (19:33)
[2018-06-26] MEDS: (Lantus) Insulin Glargine, Recombinant SC SCH (21:51)
[2018-06-27] MEDS: Albuterol-Ipratrop 3 mg / 0.5 (3 ml) UD INH SCH ×3 (01:16→20:12)
--- NOTE | 2018-06-27 03:48 | PN ---
DATE: 06/26/2018 FOLLOWUP RENAL CONSULTATION LOCATION: The patient is located in room 360, bed B. REQUESTED BY: Carlos Haddad MD REASON FOR FOLLOWUP: End-stage renal disease, continuation of hemodialysis. SUBJECTIVE: Mrs. Orozco is a 53-year-old middle-aged [place]an female with a history of longstanding hypertension, diabetes, hyperlipidemia, diabetic retinopathy, end-stage renal disease, CHF, coronary artery disease, status post CABG who was admitted with chief complaints of back pain, right upper quadrant and epigastric pain. The patient underwent multiple tests and found to have herniated disk at L4-L5, L5-S1, on analgesics. The patient is complaining of feeling dizzy and lightheaded this evening. No chest pain. No palpitation. No fever. No cough. The patient was hypertensive as per the registered nurse earlier, and repeat vital signs were stable. PHYSICAL EXAMINATION: VITAL SIGNS: As follows: As of 06/26/2018 at 1500 hours, blood pressure 93/56, respirations 20, pulse 71, temperature 97.1, and saturation 97%. Height 5 feet 5 inches, and weight is 120 pounds. GENERAL: Mrs. Orozco is a 53-year-old middle-aged female, moderately built, moderately nourished, not in acute distress. HEENT: Pupils are normal and reactive to light and accommodation. Conjunctivae are pink. Sclerae are anicteric. Tongue is moist, trachea is midline with poor vision. LUNGS: Symmetric on both sides. Bilateral breath sounds present. Clear to auscultation. CARDIOVASCULAR SYSTEM: [place] at the fifth intercostal space, midclavicular line. S1 and S2 audible. No murmur. No gallop. ABDOMEN: Normal in appearance. Soft, tympanitic. No guarding. No rigidity. No hepatosplenomegaly. CENTRAL NERVOUS SYSTEM: The patient is alert, awake, and oriented x3. Nonfocal neuro examination. Cranial nerves II through XII grossly intact. Sensory and motor system is within normal limits. EXTREMITIES: No cyanosis, no clubbing, and no edema. CURRENT MEDICATIONS: Include as follows: Hydralazine 25 mg p.o. t.i.d., DuoNeb inhaler, aspirin 81 mg daily, lactulose, Feosol 325 mg p.o. t.i.d., Flagyl 500 mg p.o. every 12 hours, Florastor 250 mg p.o. b.i.d., heparin 3700 units three times a week intracatheter, Lantus 25 units subcu at bedtime, Lyrica 25 mg p.o. b.i.d., Norvasc 10 mg p.o. daily, oxycodone 20 mg p.o. every 6 hours, Protonix 40 mg p.o. daily, Renvela 2.4 g p.o. t.i.d., metoprolol 25 mg p.o. daily, Zofran 4 mg IV daily, and Lyrica 100 mg daily. LABORATORY DATA: As of 06/26/2018, WBC 8.6, hemoglobin 11.6, hematocrit is 37.3, MCV is 78.6, platelets 503. PT 12.2. Sodium 133, potassium 4, chloride 100, CO2 of 29, BUN 18, creatinine 3.9, glucose 171, calcium 8.3. Total bili 0.3, AST 26, ALT 15, alkaline phosphatase 84, total protein 6.3, albumin is 2.8. TSH is 2.18, free thyroxine 1.17. C-reactive protein is 8.7. Hemoglobin A1c is 6.8. ASSESSMENT AND PLAN: In summary, Mrs. Orozco is a 53-year-old middle-aged [place] female with history of hypertension, diabetes, hyperlipidemia, coronary artery disease, status post coronary artery bypass grafting, congestive heart failure, end-stage renal disease, diabetic retinopathy with poor vision who was admitted with back pain, right upper quadrant and epigastric pain, constant and found to have herniated disk at L4-L5 and L5-S1. 1. End-stage renal disease. Continue hemodialysis two times a week, Tuesday and Tuesday for the time being. 2. Hypertension. Blood pressure is low this evening. Hold all the blood pressure medicines for systolic blood pressure less than 130. 3. Diabetes. Sugars are under control. 4. Herniated disk at L4-L5 and L5-S1. Continue analgesics and adjust renal dose. We will decrease Lyrica to 25 mg by mouth daily and decrease oxycodone to 10 mg by mouth every 8 hours. We will start intravenous fluids half-normal saline at 60 mL/hour. We will follow with you. Thank you for allowing me to participate in your patient's care. Vasiliy Emery MD
[2018-06-27] MEDS: (Novolog) Insulin Aspart, Recombinant 100 u/ml 10 ml vial SC SCH ×7 (07:52→21:07)
[2018-06-27] MEDS: Sevelamer Carb 2.4 gm/Packet PO SCH ×3 (08:20→17:54)
--- NOTE | 2018-06-27 08:27 | PN ---
DATE: 06/27/2018 TIME OF EVALUATION: 07:05 a.m. NEUROLOGICAL PROBLEM: Severe lumbosacral radiculoplexopathy superimposed with neuropathy. PHYSICAL EXAMINATION: GENERAL: The patient is awake, alert. He felt somewhat better tolerating Lyrica. However, the pain is not completely resolved. VITAL SIGNS: Blood pressure 111/68, mean arterial pressure of 82, respiratory rate 18, temperature 97.6 with a pulse rate of 82. Examination unchanged. LABORATORY DATA: Blood sugar 185, TSH 2.18, CRP 8.76, ESR 60. RECOMMENDATION: 1. Diabetic control. 2. Out of bed physical therapy. 3. Continue Lyrica 100 mg twice a day, physical therapy and the patient should have electrodiagnostic studies that can be done as outpatient. The patient will be followed in the hospital. Rio Duenas MD
[2018-06-27] MEDS: Saccharomyces Boulardi 250 mg Cap PO SCH ×2 (10:00→17:54)
[2018-06-27] MEDS: Metoprolol Succinate 25 mg XL Tab PO SCH (10:01)
[2018-06-27] MEDS: Pantoprazole 40 mg EC Tab PO SCH (10:01)
--- NOTE | 2018-06-27 12:02 | CP.PCM.PN ---
Subjective - Date & Time of Evaluation Date of Evaluation: 06/27/18 Time of Evaluation: 12:00 - Subjective Subjective: pt is seen and examined, follow up consult is dictated #[id number] for hd today Objective - Vital Signs/Intake and Output Vital Signs (last 24 hours): Temp Pulse Resp BP Pulse Ox 97.3 F L 81 16 107/56 L 99 06/27/18 08:55 06/27/18 08:55 06/27/18 08:55 06/27/18 10:25 06/27/18 08:55 Intake and Output: 06/27/18 06/27/18 06:59 18:59 Intake Total 1300 Output Total 50 Balance 1250 - Medications Medications: Current Medications Albuterol/Ipratropium (Duoneb 3 Mg/0.5 Mg (3 Ml) Ud) 3 ml INH RQ6 [facility] Last Admin: 06/27/18 07:25 Dose: 3 ml Amlodipine Besylate (Norvasc) 10 mg PO DAILY [facility] Last Admin: 06/27/18 10:01 Dose: Not Given Aspirin (Ecotrin) 81 mg PO DAILY [facility] Last Admin: 06/27/18 10:00 Dose: Not Given Ferrous Sulfate (Feosol) 325 mg PO TID [facility] Last Admin: 06/27/18 10:00 Dose: Not Given Heparin Sodium (Porcine) (Heparin) 3,700 units IVP TTS [facility] Stop: 07/01/18 23:00 Last Admin: 06/27/18 11:08 Dose: 3,700 units Hydralazine HCl (Apresoline) 25 mg PO TID [facility] Last Admin: 06/27/18 09:59 Dose: Not Given Sodium Chloride (Sodium Chloride 0.9%) 1,000 mls @ 60 mls/hr IV .[id number] ONE Stop: 06/27/18 12:02 Last Admin: 06/26/18 19:50 Dose: 60 mls/hr Insulin Aspart (Novolog) 5 unit SC AC [facility] Last Admin: 06/27/18 08:17 Dose: 5 units Insulin Aspart (Novolog) 0 unit SC ACHS [facility]; Protocol Last Admin: 06/27/18 07:52 Dose: Not Given Insulin Glargine (Lantus) 25 unit SC HS [facility] Last Admin: 06/26/18 21:51 Dose: Not Given Lactulose (Enulose) 20 gm PO BID [facility] Last Admin: 06/27/18 10:00 Dose: Not Given Metoprolol Succinate (Toprol Xl) 25 mg PO DAILY [facility] Last Admin: 06/27/18 10:01 Dose: Not Given Metronidazole (Flagyl) 500 mg PO Q12H [facility]; Protocol Last Admin: 06/26/18 23:57 Dose: 500 mg Ondansetron HCl (Zofran Inj) 4 mg IVP Q6 PRN PRN Reason: Nausea/Vomiting Last Admin: 06/26/18 19:53 Dose: 4 mg Oxycodone HCl (Oxycodone Immediate Release Tab) 10 mg PO Q8 PRN PRN Reason: Pain, severe (8-10) Pantoprazole Sodium (Protonix Ec Tab) 40 mg PO DAILY [facility] Last Admin: 06/27/18 10:01 Dose: Not Given Pregabalin (Lyrica) 25 mg PO DAILY [facility] Last Admin: 06/27/18 10:01 Dose: Not Given Saccharomyces Boulardii (Florastor) 250 mg PO BID [facility] Last Admin: 06/27/18 10:00 Dose: Not Given Sevelamer Carbonate (Renvela) 2.4 gm PO TIDCC [facility] Last Admin: 06/27/18 08:20 Dose: 2.4 gm - Labs Labs: 06/26/18 11:30 06/26/18 11:30 PT 12.2 SECONDS (9.7-12.2) 06/26/18 11:30 INR 1.1 06/26/18 11:30
[2018-06-27 16:52] VITALS: RESP 20
[2018-06-27] MEDS: (Lantus) Insulin Glargine, Recombinant SC SCH (21:39)
--- NOTE | 2018-06-27 22:59 | PN ---
DATE: 06/27/2018 FOLLOWUP RENAL CONSULTATION LOCATION: The patient is located in room 360, bed B. REASON FOR RENAL CONSULTATION: End-stage renal disease, continuation of hemodialysis. REQUESTED BY: Carlos Haddad MD SUBJECTIVE: Mrs. Orozco is a 53-year-old elderly middle-aged [place] female with a past medical history significant for longstanding hypertension, diabetes, hyperlipidemia, CHF, coronary artery disease, status post CABG, end-stage renal disease on hemodialysis two times a week Tuesday and Tuesday, who was admitted with chief complaints of back pain, right upper quadrant and epigastric pain. Her workup is consistent with herniated disks at L4-L5 and L5-S1. The patient is complaining of pain in the right scapular area and also in the back. Denies any chest pain, palpitation. Denies any nausea, vomiting, diarrhea. Denies any dysuria, frequency. No swelling of the legs. The patient was seen and examined during dialysis, EF goal is about 1 liter. PHYSICAL EXAMINATION: VITAL SIGNS: As follows: Blood pressure 105/58 and post dialysis blood pressure 136/87, pulse 85, respirations 16, temperature 97.6, saturation 100%. Height 5 feet 5 inches and weight is 120 pounds. GENERAL: Mrs. Orozco is a 53-year-old middle-aged female, moderately built, moderately nourished, not in acute distress. HEENT: Pupils normal, reactive to light and accommodation. Conjunctivae pink. Sclerae anicteric. Tongue is moist and trachea is midline. LUNGS: Symmetric on both sides. Bilateral breath sounds present. Clear to auscultation. CARDIOVASCULAR SYSTEM: [place] at the fifth intercostal space, midclavicular line. S1 and S2 audible. No murmur or gallop. ABDOMEN: Normal in appearance. Soft, tympanitic. No guarding. No rigidity. No hepatosplenomegaly. CENTRAL NERVOUS SYSTEM: The patient is alert, awake, oriented x3. Nonfocal neuro examination. Cranial nerves II-XII grossly intact. Sensory and motor system is within normal limits. EXTREMITIES: No cyanosis, no clubbing, no edema. CURRENT MEDICATIONS: Include as follows: Hydralazine 25 mg p.o. t.i.d., aspirin 81 mg daily, lactulose 20 g p.o. b.i.d., ferrous sulfate 325 mg p.o. t.i.d., Flagyl 500 mg p.o. every 12 hours, Florastor 250 mg p.o. b.i.d., Lantus 25 units subcu at bedtime, Lyrica 25 mg p.o. daily, amlodipine 10 mg p.o. daily, NovoLog per sliding scale, Protonix 40 mg p.o. daily, Renvela 2.4 g p.o. t.i.d., metoprolol 25 mg p.o. daily, Zofran 4 mg IV every 6 hours p.r.n. LABORATORY DATA: No new labs available. Accu-Cheks 120, 138. ASSESSMENT AND PLAN: In summary, Mrs. Orozco is a 53-year-old middle-aged [place] female with hypertension, diabetes, hyperlipidemia, congestive heart failure, diabetic retinopathy with poor vision, coronary artery disease, status post coronary artery bypass graft, end-stage renal disease, on hemodialysis, who was admitted with back pain and also epigastric and upper quadrant pain. Her workup is consistent with herniated disks at L4-L5 and L5-S1. 1. End-stage renal disease. Continue hemodialysis two times a week, Tuesday and Tuesday. 2. Hypertension. Blood pressure is stable. Hold blood pressure medicine for systolic blood pressure less than 130. Consider neurology and orthopedic evaluation for herniated disk and for further management. Consider pain management or anesthesia for possible epidural injection. The patient was seen and examined during dialysis, had ultrafiltration about 1 liter. We will follow with you. Thank you for allowing me to participate in your patient's care. Vasiliy Emery MD
--- NOTE | 2018-06-28 06:16 | CP.PCM.PN ---
Subjective - Date & Time of Evaluation Date of Evaluation: 06/27/18 Time of Evaluation: 08:00 - Subjective Subjective: pain persists but less responding to pain meds somewhat Neuro's input well appreciated Objective - Vital Signs/Intake and Output Vital Signs (last 24 hours): Temp Pulse Resp BP Pulse Ox 98.1 F 91 H 20 121/72 96 06/27/18 16:00 06/27/18 16:00 06/27/18 16:00 06/27/18 17:57 06/27/18 16:00 Intake and Output: 06/27/18 06/28/18 18:59 06:59 Intake Total 580 730 Balance 580 730 - Medications Medications: Current Medications Amlodipine Besylate (Norvasc) 10 mg PO DAILY [facility] Last Admin: 06/27/18 10:01 Dose: Not Given Aspirin (Ecotrin) 81 mg PO DAILY [facility] Last Admin: 06/27/18 10:00 Dose: Not Given Ferrous Sulfate (Feosol) 325 mg PO TID [facility] Last Admin: 06/27/18 17:54 Dose: 325 mg Hydralazine HCl (Apresoline) 25 mg PO TID [facility] Last Admin: 06/27/18 17:54 Dose: 25 mg Insulin Aspart (Novolog) 5 unit SC AC [facility] Last Admin: 06/27/18 17:55 Dose: 5 units Insulin Aspart (Novolog) 0 unit SC [facility]; Protocol Last Admin: 06/27/18 21:07 Dose: Not Given Insulin Glargine (Lantus) 25 unit SC [facility] Last Admin: 06/27/18 21:39 Dose: Not Given Lactulose (Enulose) 20 gm PO BID [facility] Last Admin: 06/27/18 17:54 Dose: 20 gm Metoprolol Succinate (Toprol Xl) 25 mg PO DAILY [facility] Last Admin: 06/27/18 10:01 Dose: Not Given Ondansetron HCl (Zofran Inj) 4 mg IVP Q6 PRN PRN Reason: Nausea/Vomiting Last Admin: 06/26/18 19:53 Dose: 4 mg Oxycodone HCl (Oxycodone Immediate Release Tab) 10 mg PO Q8 PRN PRN Reason: Pain, severe (8-10) Last Admin: 06/27/18 17:54 Dose: 10 mg Pantoprazole Sodium (Protonix Ec Tab) 40 mg PO DAILY [facility] Last Admin: 06/27/18 10:01 Dose: Not Given Pregabalin (Lyrica) 25 mg PO DAILY [facility] Last Admin: 06/27/18 12:41 Dose: 25 mg Saccharomyces Boulardii (Florastor) 250 mg PO BID [facility] Last Admin: 06/27/18 17:54 Dose: 250 mg Sevelamer Carbonate (Renvela) 2.4 gm PO TIDCC [facility] Last Admin: 06/27/18 17:54 Dose: 2.4 gm - Labs Labs: 06/26/18 11:30 06/26/18 11:30 PT 12.2 SECONDS (9.7-12.2) 06/26/18 11:30 INR 1.1 06/26/18 11:30 - Constitutional Appears: Chronically Ill - Head Exam Head Exam: NORMAL INSPECTION - Eye Exam Eye Exam: absent: Scleral icterus - ENT Exam ENT Exam: Mucous Membranes Moist - Neck Exam Neck Exam: Full ROM - Respiratory Exam Respiratory Exam: Decreased Breath Sounds - Cardiovascular Exam Cardiovascular Exam: REGULAR RHYTHM - GI/Abdominal Exam GI & Abdominal Exam: Soft - Extremities Exam Extremities Exam: Pedal Edema - Neurological Exam Neurological Exam: Alert, Oriented x3 Assessment and Plan - Assessment and Plan (Free Text) Assessment: Lumbar radiculopathy T2dm CAD HTN ESRD Plan: Cont meds will discuss epidural steroid injection with Dr Duenas
--- NOTE | 2018-06-28 06:22 | CP.PCM.PN ---
Subjective - Date & Time of Evaluation Date of Evaluation: 06/26/18 Time of Evaluation: 09:00 - Subjective Subjective: seen by Neuro w/ Dx Lumbar radiculoplexopathy had vomitted twice radicular pain persist Objective - Vital Signs/Intake and Output Vital Signs (last 24 hours): Temp Pulse Resp BP Pulse Ox 98.1 F 91 H 20 121/72 96 06/27/18 16:00 06/27/18 16:00 06/27/18 16:00 06/27/18 17:57 06/27/18 16:00 Intake and Output: 06/27/18 06/28/18 18:59 06:59 Intake Total 580 730 Balance 580 730 - Medications Medications: Current Medications Amlodipine Besylate (Norvasc) 10 mg PO DAILY [facility] Last Admin: 06/27/18 10:01 Dose: Not Given Aspirin (Ecotrin) 81 mg PO DAILY [facility] Last Admin: 06/27/18 10:00 Dose: Not Given Ferrous Sulfate (Feosol) 325 mg PO TID [facility] Last Admin: 06/27/18 17:54 Dose: 325 mg Hydralazine HCl (Apresoline) 25 mg PO TID [facility] Last Admin: 06/27/18 17:54 Dose: 25 mg Insulin Aspart (Novolog) 5 unit SC AC [facility] Last Admin: 06/27/18 17:55 Dose: 5 units Insulin Aspart (Novolog) 0 unit SC [facility]; Protocol Last Admin: 06/27/18 21:07 Dose: Not Given Insulin Glargine (Lantus) 25 unit SC [facility] Last Admin: 06/27/18 21:39 Dose: Not Given Lactulose (Enulose) 20 gm PO BID [facility] Last Admin: 06/27/18 17:54 Dose: 20 gm Metoprolol Succinate (Toprol Xl) 25 mg PO DAILY [facility] Last Admin: 06/27/18 10:01 Dose: Not Given Ondansetron HCl (Zofran Inj) 4 mg IVP Q6 PRN PRN Reason: Nausea/Vomiting Last Admin: 06/26/18 19:53 Dose: 4 mg Oxycodone HCl (Oxycodone Immediate Release Tab) 10 mg PO Q8 PRN PRN Reason: Pain, severe (8-10) Last Admin: 06/27/18 17:54 Dose: 10 mg Pantoprazole Sodium (Protonix Ec Tab) 40 mg PO DAILY [facility] Last Admin: 06/27/18 10:01 Dose: Not Given Pregabalin (Lyrica) 25 mg PO DAILY [facility] Last Admin: 06/27/18 12:41 Dose: 25 mg Saccharomyces Boulardii (Florastor) 250 mg PO BID [facility] Last Admin: 06/27/18 17:54 Dose: 250 mg Sevelamer Carbonate (Renvela) 2.4 gm PO TIDCC [facility] Last Admin: 06/27/18 17:54 Dose: 2.4 gm - Labs Labs: 06/26/18 11:30 06/26/18 11:30 PT 12.2 SECONDS (9.7-12.2) 06/26/18 11:30 INR 1.1 06/26/18 11:30 - Constitutional Appears: Chronically Ill - Head Exam Head Exam: NORMAL INSPECTION - Eye Exam Eye Exam: absent: Scleral icterus - ENT Exam ENT Exam: Mucous Membranes Moist - Neck Exam Neck Exam: Full ROM - Respiratory Exam Respiratory Exam: Clear to Ausculation Bilateral - Cardiovascular Exam Cardiovascular Exam: REGULAR RHYTHM - GI/Abdominal Exam GI & Abdominal Exam: Soft - Extremities Exam Extremities Exam: Pedal Edema - Neurological Exam Neurological Exam: Alert, Oriented x3 Assessment and Plan - Assessment and Plan (Free Text) Assessment: 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
--- NOTE | 2018-06-28 06:33 | CP.PCM.PN ---
Subjective - Date & Time of Evaluation Date of Evaluation: 06/25/18 Time of Evaluation: 10:00 - Subjective Subjective: low back pain persists NAD Afebrile Objective - Vital Signs/Intake and Output Vital Signs (last 24 hours): Temp Pulse Resp BP Pulse Ox 98.1 F 91 H 20 121/72 96 06/27/18 16:00 06/27/18 16:00 06/27/18 16:00 06/27/18 17:57 06/27/18 16:00 Intake and Output: 06/27/18 06/28/18 18:59 06:59 Intake Total 580 730 Balance 580 730 - Medications Medications: Current Medications Amlodipine Besylate (Norvasc) 10 mg PO DAILY [facility] Last Admin: 06/27/18 10:01 Dose: Not Given Aspirin (Ecotrin) 81 mg PO DAILY [facility] Last Admin: 06/27/18 10:00 Dose: Not Given Ferrous Sulfate (Feosol) 325 mg PO TID [facility] Last Admin: 06/27/18 17:54 Dose: 325 mg Hydralazine HCl (Apresoline) 25 mg PO TID [facility] Last Admin: 06/27/18 17:54 Dose: 25 mg Insulin Aspart (Novolog) 5 unit SC AC [facility] Last Admin: 06/27/18 17:55 Dose: 5 units Insulin Aspart (Novolog) 0 unit SC [facility]; Protocol Last Admin: 06/27/18 21:07 Dose: Not Given Insulin Glargine (Lantus) 25 unit SC HS [facility] Last Admin: 06/27/18 21:39 Dose: Not Given Lactulose (Enulose) 20 gm PO BID [facility] Last Admin: 06/27/18 17:54 Dose: 20 gm Metoprolol Succinate (Toprol Xl) 25 mg PO DAILY [facility] Last Admin: 06/27/18 10:01 Dose: Not Given Ondansetron HCl (Zofran Inj) 4 mg IVP Q6 PRN PRN Reason: Nausea/Vomiting Last Admin: 06/26/18 19:53 Dose: 4 mg Oxycodone HCl (Oxycodone Immediate Release Tab) 10 mg PO Q8 PRN PRN Reason: Pain, severe (8-10) Last Admin: 06/27/18 17:54 Dose: 10 mg Pantoprazole Sodium (Protonix Ec Tab) 40 mg PO DAILY [facility] Last Admin: 06/27/18 10:01 Dose: Not Given Pregabalin (Lyrica) 25 mg PO DAILY [facility] Last Admin: 06/27/18 12:41 Dose: 25 mg Saccharomyces Boulardii (Florastor) 250 mg PO BID [facility] Last Admin: 06/27/18 17:54 Dose: 250 mg Sevelamer Carbonate (Renvela) 2.4 gm PO TIDCC [facility] Last Admin: 06/27/18 17:54 Dose: 2.4 gm - Labs Labs: 06/26/18 11:30 06/26/18 11:30 PT 12.2 SECONDS (9.7-12.2) 06/26/18 11:30 INR 1.1 06/26/18 11:30 - Constitutional Appears: Agitated - Head Exam Head Exam: ATRAUMATIC - Eye Exam Eye Exam: absent: Scleral icterus - ENT Exam ENT Exam: Mucous Membranes Moist - Neck Exam Neck Exam: Full ROM - Respiratory Exam Respiratory Exam: Clear to Ausculation Bilateral - Cardiovascular Exam Cardiovascular Exam: REGULAR RHYTHM - GI/Abdominal Exam GI & Abdominal Exam: Soft - Extremities Exam Extremities Exam: absent: Pedal Edema - Neurological Exam Neurological Exam: Alert, Oriented x3 Assessment and Plan - Assessment and Plan (Free Text) Assessment: Low back pain ESRD T2dm CAD Plan: Pain meds Neuro consult GI follow up-input well appreciated Pain meds Cont w/u
[2018-06-28 06:35] VITALS: O2SAT 97
--- NOTE | 2018-06-28 06:39 | CP.PCM.HP ---
History of Present Illness - History of Present Illness History of Present Illness: CC severe low back pain Present on Admission - Present on Admission History of Uncontrolled Diabetes: Yes Past Patient History - Infectious Disease Hx of Infectious Diseases: None - Past Medical History & Family History Past Medical History?: Yes - Past Social History Smoking Status: Never Smoked - CARDIAC Hx Hypercholesterolemia: Yes Hx Hypertension: Yes - PULMONARY Hx Chronic Obstructive Pulmonary Disease (COPD): Yes Hx Pulmonary Embolism: No - NEUROLOGICAL Hx Neurological Disorder: Yes Hx Syncope: Yes - HEENT Hx HEENT Problems: No - RENAL Hx Chronic Kidney Disease: Yes (esrd) Hx Dialysis: Yes Type of Dialysis Access: right subclavian permacath Date of Last Dialysis Treatment: 06/21/18 Hx Renal Failure: Yes - ENDOCRINE/METABOLIC Hx Endocrine Disorders: Yes Hx Diabetes Mellitus Type 1: Yes - HEMATOLOGICAL/ONCOLOGICAL Hx Anemia: Yes Hx Blood Transfusions: Yes Hx Blood Transfusion Reaction: No - INTEGUMENTARY Hx Dermatological Problems: No - MUSCULOSKELETAL/RHEUMATOLOGICAL Hx Arthritis: Yes (KNEE; BACK) Hx Falls: No Hx Herniated Disk: Yes - GASTROINTESTINAL Hx Gastrointestinal Disorders: Yes Hx Gastroesophageal Reflux: Yes - GENITOURINARY/GYNECOLOGICAL Hx Genitourinary Disorders: No - PSYCHIATRIC Hx Substance Use: No - SURGICAL HISTORY Hx Arteriovenous Shunt: Yes Hx Coronary Artery Bypass Graft: Yes (09/19) Hx Hysterectomy: Yes (2015) - ANESTHESIA Hx Anesthesia: Yes Hx Anesthesia Reactions: No Hx Malignant Hyperthermia: No Meds Allergies/Adverse Reactions: Allergies Allergy/AdvReac Type Severity Reaction Status Date / Time No Known Allergies Allergy Verified 06/22/18 11:50 Results - Vital Signs Recent Vital Signs: Last Vital Signs Temp 98.1 F 06/27/18 16:00 Pulse 91 H 06/27/18 16:00 Resp 20 06/27/18 16:00 BP 121/72 06/27/18 17:57 Pulse Ox 96 06/27/18 16:00 - Labs Result Diagrams: 06/26/18 11:30 06/26/18 11:30 Labs: Laboratory Results - last 24 hr 06/27/18 06/27/18 06/27/18 07:11 11:14 16:10 POC Glucose (mg/dL) 120 H 138 H 205 H 06/27/18 20:59 POC Glucose (mg/dL) 188 H Assessment & Plan - Assessment and Plan (Free Text) Assessment: Low back pain ESRD T2dm CAD HTN Plan: GI/ID consult Pain meds HD - Date & Time Date: 06/22/18 Time: 09:00
[2018-06-28 07:45] VITALS: BP 172/84; PULSE 94; TEMP 98.2
[2018-06-28] MEDS: (Novolog) Insulin Aspart, Recombinant 100 u/ml 10 ml vial SC SCH ×4 (08:01→12:42)
--- NOTE | 2018-06-28 08:55 | PN ---
DATE: 06/28/2018 NEUROLOGICAL PROBLEM: Lumbosacral radicular plexopathy, probably related to his metabolic complication, which also superimposed with chronic degenerative disease in his lumbosacral spine. OBJECTIVE: VITAL SIGNS: Blood pressure 124/65, mean arterial pressure of 84, respiratory rate 18, pulse rate 87 regular, temperature 98.1. The patient is awake. The radicular pain is somewhat improved with current medication. She does not feel sleepy. However, she slept good last night. The pain scale somewhat decreased but still suffering with the pain. She is ambulating on her one with cane. Recommendation being she is diabetic and has renal disease, her pain is on her right side not consistent with her radiological findings. Her clinical presentation all consistent with metabolic and lumbosacral radicular plexopathy, probably amyotrophy. I strongly not recommending her to be undergoing epidural therapy for her pain control because of potential side effects. RECOMMENDATION: Continue Lyrica, getting her out of bed, reassurance, diabetic control and electrodiagnostic studies to be done as an outpatient. The patient's condition had been well discussed with her. Doing epidural pros and cons been discussed. She will make the decision of her further treatment. I will be signing her off from neurological followup. If needed, please consider for neurological followup here in future if any changes in neuro status. Rio Duenas MD
[2018-06-28] MEDS: Sevelamer Carb 2.4 gm/Packet PO SCH ×2 (09:00→12:45)
[2018-06-28] MEDS: Pantoprazole 40 mg EC Tab PO SCH (09:56)
[2018-06-28] MEDS: Metoprolol Succinate 25 mg XL Tab PO SCH (09:56)
[2018-06-28] MEDS: Saccharomyces Boulardi 250 mg Cap PO SCH (09:56)
--- NOTE | 2018-06-28 10:27 | CP.PCM.PN ---
Subjective - Date & Time of Evaluation Date of Evaluation: 06/28/18 Time of Evaluation: 10:27 - Subjective Subjective: pt is seen and examined by me, follow up consult is dictated #[id number] feeling better, less pain Objective - Vital Signs/Intake and Output Vital Signs (last 24 hours): Temp Pulse Resp BP Pulse Ox 98.2 F 94 H 20 172/84 H 97 06/28/18 07:39 06/28/18 07:39 06/28/18 07:39 06/28/18 07:39 06/28/18 07:39 Intake and Output: 06/28/18 06/28/18 06:59 18:59 Intake Total 1410 Balance 1410 - Medications Medications: Current Medications Amlodipine Besylate (Norvasc) 10 mg PO DAILY [facility] Last Admin: 06/28/18 09:56 Dose: 10 mg Aspirin (Ecotrin) 81 mg PO DAILY [facility] Last Admin: 06/28/18 09:56 Dose: 81 mg Ferrous Sulfate (Feosol) 325 mg PO TID [facility] Last Admin: 06/28/18 09:56 Dose: 325 mg Hydralazine HCl (Apresoline) 25 mg PO TID [facility] Last Admin: 06/28/18 09:55 Dose: 25 mg Insulin Aspart (Novolog) 5 unit SC AC [facility] Last Admin: 06/28/18 08:01 Dose: 5 units Insulin Aspart (Novolog) 0 unit SC [facility]; Protocol Last Admin: 06/28/18 08:02 Dose: 2 units Insulin Glargine (Lantus) 25 unit SC [facility] Last Admin: 06/27/18 21:39 Dose: Not Given Lactulose (Enulose) 20 gm PO BID [facility] Last Admin: 06/28/18 10:02 Dose: Not Given Metoprolol Succinate (Toprol Xl) 25 mg PO DAILY [facility] Last Admin: 06/28/18 09:56 Dose: 25 mg Ondansetron HCl (Zofran Inj) 4 mg IVP Q6 PRN PRN Reason: Nausea/Vomiting Last Admin: 06/26/18 19:53 Dose: 4 mg Oxycodone HCl (Oxycodone Immediate Release Tab) 10 mg PO Q8 PRN PRN Reason: Pain, severe (8-10) Last Admin: 06/27/18 17:54 Dose: 10 mg Pantoprazole Sodium (Protonix Ec Tab) 40 mg PO DAILY [facility] Last Admin: 06/28/18 09:56 Dose: 40 mg Pregabalin (Lyrica) 25 mg PO DAILY [facility] Last Admin: 06/28/18 09:56 Dose: 25 mg Saccharomyces Boulardii (Florastor) 250 mg PO BID [facility] Last Admin: 06/28/18 09:56 Dose: 250 mg Sevelamer Carbonate (Renvela) 2.4 gm PO TIDCC [facility] Last Admin: 06/28/18 09:00 Dose: 2.4 gm - Labs Labs: 06/26/18 11:30 06/26/18 11:30 PT 12.2 SECONDS (9.7-12.2) 06/26/18 11:30 INR 1.1 06/26/18 11:30
--- NOTE | 2018-06-28 16:31 | CP.PCM.PN ---
Subjective - Date & Time of Evaluation Date of Evaluation: 06/28/18 Time of Evaluation: 11:00 - Subjective Subjective: alert, orientedx3, no acute pain or nausea, able to eat her diet, NAD. Objective - Vital Signs/Intake and Output Vital Signs (last 24 hours): Temp Pulse Resp BP Pulse Ox 98.2 F 94 H 20 172/84 H 97 06/28/18 07:39 06/28/18 07:39 06/28/18 07:39 06/28/18 07:39 06/28/18 07:39 Intake and Output: 06/28/18 06/28/18 06:59 18:59 Intake Total 1410 540 Balance 1410 540 - Labs Labs: 06/26/18 11:30 06/26/18 11:30 PT 12.2 SECONDS (9.7-12.2) 06/26/18 11:30 INR 1.1 06/26/18 11:30 Assessment and Plan - Assessment and Plan (Free Text) Assessment: 53 year old female admitted with intractable abdominal pain, seen and examined. Alert and orientedx3, able to ambulate. No acute pain or distress noted. Discussed with DR Haddad, plan to discharge home today. Advised outpatient physical therapy for the low back pain. Advised to follow up in the office in 1 week.
--- NOTE | 2018-06-29 00:53 | PN ---
DATE: 06/28/2018 FOLLOWUP RENAL CONSULTATION LOCATION: The patient is located in room 360, bed B. REQUESTED BY: Carlos Haddad MD REASON FOR FOLLOWUP: End-stage renal disease, continuation of hemodialysis. SUBJECTIVE: Mrs. Orozco is a 53-year-old middle-aged [place] female with a history of longstanding hypertension; diabetes; CHF; coronary artery disease, status post CABG; hyperlipidemia; diabetic retinopathy with poor vision; end-stage renal disease, on hemodialysis two times a week on Tuesday and Tuesday who was admitted multiple times in the last one month with the chief complaints of back pain, right upper quadrant pain and epigastric pain. The patient was fount to have a herniated disk on L4-L5 and L5-S1 by MRI during this admission. The patient is feeling much better today. Less pain. No chest pain. No palpitation. No fever. No cough. No abdominal pain. No nausea, vomiting or diarrhea. PHYSICAL EXAMINATION: GENERAL: Mrs. Orozco is a 53-year-old elderly female, moderately built, moderately nourished, not in acute distress. VITAL SIGNS: As follows: Blood pressure this morning 172/84, pulse 94, respirations 20, temperature 98.2. HEENT: Pupils are normal and reactive to light and accommodation. Conjunctivae pink. Sclerae anicteric. Tongue is moist. Trachea is midline. LUNGS: Symmetric on both sides. Bilateral breath sounds present. Clear to auscultation. CARDIOVASCULAR SYSTEM: [place] at the fifth intercostal space, midclavicular line. S1 and S2 audible. No murmur or gallop. ABDOMEN: Normal in appearance. Soft, tympanitic. No guarding. No rigidity. No hepatosplenomegaly. CENTRAL NERVOUS SYSTEM: The patient is alert, awake, oriented x3. Nonfocal neuro examination. Cranial nerves II through XII grossly intact. Sensory and motor system is within normal limits. EXTREMITIES: No cyanosis, no clubbing, no edema. MEDICATIONS: Her current medications include as follows: Amlodipine 10 mg p.o. daily, aspirin 81 mg daily, Feosol 325 mg p.o. daily t.i.d, hydralazine 25 mg t.i.d., NovoLog per sliding scale and Lantus 25 units subcu at bedtime, lactulose 20 g p.o. b.i.d., metoprolol 25 mg p.o. daily, Zofran, oxycodone 10 mg p.o. every 8 hours, Protonix 40 mg p.o. daily, Lyrica 25 mg p.o. daily, Florastor 250 mg p.o. b.i.d., Renvela 2.4 g p.o. t.i.d. LABORATORY DATA: No new labs available. Accu-Cheks 182 and 130. ASSESSMENT AND PLAN: In summary, Mrs. Orozco is a 53-year-old middle-aged [place] female with a history of hypertension; diabetes; coronary artery disease, status post coronary artery bypass grafting; diabetic retinopathy; end-stage renal disease, on hemodialysis two times a week who was admitted with back pain and also right upper quadrant epigastric pain. The patient was found to have a herniated disk at L5-S1 and L4-L5. Continue analgesics, Lyrica and oxycodone. Continue hemodialysis two times a week on Tuesday and Tuesday. The patient is being discharged home today. We will follow up with you. Thank you for allowing me to participate in your patient's care. Vasiliy Emery MD
== END 2018-06-28 13:59 | disposition home or self-care (01) | DRG 18 ==
LOC: C.ER 11:43 → C.9E 15:58 → C.3T 16:20 → C.9E 16:56 → C.3T 16:57 → OBSVTOIN 06-24 13:44 → C.3T 06-26 09:27
PROVIDERS: ADMIT Internal Medicine; ATTEND Internal Medicine
PROC: 5A1D70Z Performance of Urinary Filtration, Intermittent, Less than 6 Hours Per Day (ICD-10-PCS; principal; 2018-06-27)
DX: E11.40 Type 2 diabetes mellitus with diabetic neuropathy, unspecified (principal); I13.2 Hypertensive heart and chronic kidney disease with heart failure and with stage 5 chronic kidney disease, or end stage renal disease; N18.6 End stage renal disease; I50.9 Heart failure, unspecified; J44.9 Chronic obstructive pulmonary disease, unspecified; M51.26 Other intervertebral disc displacement, lumbar region; E11.319 Type 2 diabetes mellitus with unspecified diabetic retinopathy without macular edema; I25.10 Atherosclerotic heart disease of native coronary artery without angina pectoris; Z99.2 Dependence on renal dialysis; Z95.1 Presence of aortocoronary bypass graft; E78.00 Pure hypercholesterolemia, unspecified; Z79.4 Long term (current) use of insulin; M17.10 Unilateral primary osteoarthritis, unspecified knee; M47.9 Spondylosis, unspecified